=== PATIENT | female | born 1960 | race Caucasian/White ===

== ENCOUNTER 2019-10-04 09:37 | Outpatient (CLI) | payer OTHER, MEDICAID, SELFPAY ==
--- NOTE | 2019-10-04 09:46 | XRR_ITS ---
PROCEDURE INFORMATION: Exam: XR Abdomen, 1 View Exam date and time: 10/04/2019 10:02 AM Age: 59 years old Clinical indication: Pain; Other: Flank; Prior surgery; Surgery type: Gb / HX of colon cancer; Patient HX: Follow up bilateral kidney stones/ follow up; Additional info: Bilateral kidney stone TECHNIQUE: Imaging protocol: XR of the abdomen. Views: Frontal supine view of the abdomen. 1 View. COMPARISON: CR XR KUB [id number] 05/12/2014 9:05 AM FINDINGS: Gastrointestinal tract: Prominent stool. Organs: Bilateral urolithiasis, including 18 x 11 mm right renal calculus. CT can be performed for improved characterization if clinically indicated. Vasculature: Vascular calcification. Bones/joints: Degenerative change. Soft tissues: Injection granulomata. Calcification of the gluteal muscle attachment sites. XR/XR KUB [id number] IMPRESSION: Bilateral urolithiasis, including 18 x 11 mm right renal calculus. CT can be performed for improved characterization if clinically indicated.
== END 2019-10-04 09:38 | disposition home or self-care (01) ==
LOC: RAD 09:45
PROVIDERS: Family Provider Registered Nurse; PCP Registered Nurse; Visit Provider Urology
DX: N20.0 Calculus of kidney (principal)
CPT/HCPCS: 74018; 81001

== ENCOUNTER → 2019-10-25 12:04 | Outpatient (BNVA) | payer OTHER, MEDICAID, SELFPAY | PROVIDERS: Family Provider Registered Nurse; PCP Registered Nurse; Visit Provider Urology | DX: N39.0 Urinary tract infection, site not specified (principal); N20.0 Calculus of kidney | CPT/HCPCS: 81001; 87086 ==

== ENCOUNTER 2020-08-09 13:20 | Emergency (ER) | payer OTHER, MEDICAID, SELFPAY ==
[2020-08-09 13:21] VITALS: BP 167/80; PULSE 71; RESP 18; TEMP 37.1; O2SAT 92; BMI 41.5
--- NOTE | 2020-08-09 13:30 | XRR_ITS ---
PROCEDURE INFORMATION: Exam: XR Left Knee Exam date and time: 08/09/2020 1:37 PM Age: 60 years old Clinical indication: Injury or trauma; Fall; Blunt trauma; Knee; Left; Injury date: Today TECHNIQUE: Imaging protocol: XR Left knee. Views: 3 views. COMPARISON: CR Knee 3 views, LEFT* [id number] 05/11/2019 10:21 AM FINDINGS: Bones/joints: Negative for acute bony abnormality. Bone spurs are seen in the anterior aspect of the patella Soft tissues: There is a suprapatellar bursa effusion XR/XR knee LT 3V* [id number] IMPRESSION: 1. Negative for acute bony abnormality. 2. Bone spurs anterior calcaneus 3. Suprapatellar bursa effusion
--- NOTE | 2020-08-09 13:30 | CTR_ITS ---
PROCEDURE INFORMATION: Exam: CT Maxillofacial Without Contrast Exam date and time: 08/09/2020 1:44 PM Age: 60 years old Clinical indication: Injury or trauma; Fall; Blunt trauma (contusions or hematomas); Cheek bone; Left; Additional info: Fall, facial swelling TECHNIQUE: Imaging protocol: Computed tomography images of the face without contrast. Axial, coronal and sagittal reformatted images were created and reviewed. Radiation optimization: All CT scans at this facility use at least one of these dose optimization techniques: automated exposure control; mA and/or kV adjustment per patient size (includes targeted exams where dose is matched to clinical indication); or iterative reconstruction. COMPARISON: No relevant prior studies available. RADIATION DOSE METRICS: Total DLP (mGy-cm): 855.56 FINDINGS: Orbital cavity: Left scleral banding. Bones/joints: No acute osseous abnormality. Mild chronic appearing deformity of the left orbital floor. Paranasal sinuses: Normal. No air-fluid levels. Soft tissues: Left periorbital/prezygomatic/premaxillary soft tissue swelling and subcutaneous blood products. CT/CT facial bones wo con* [id number] IMPRESSION: 1. No acute facial bone fracture. 2. Additional findings, as above. Radiation Dose CTDIVOL = (mGy): DLP = 855.56 (mGy-cm)
--- NOTE | 2020-08-09 13:31 | CTR_ITS ---
PROCEDURE INFORMATION: Exam: CT Abdomen And Pelvis Without Contrast Exam date and time: 08/09/2020 1:44 PM Age: 60 years old Clinical indication: Injury or trauma; Fall; Blunt; Generalized; Injury date: Today; Additional info: Fall, left hip pain TECHNIQUE: Imaging protocol: Computed tomography of the abdomen and pelvis without contrast. Axial, coronal and sagittal reformatted images were created and reviewed. Radiation optimization: All CT scans at this facility use at least one of these dose optimization techniques: automated exposure control; mA and/or kV adjustment per patient size (includes targeted exams where dose is matched to clinical indication); or iterative reconstruction. COMPARISON: CT abdomen pelvis w con* [id number] 05/20/2019 3:17 PM RADIATION DOSE METRICS: Total DLP (mGy-cm): 2461.63 FINDINGS: Liver: Mild hepatomegaly. Mild, diffuse hepatic steatosis. Gallbladder and bile ducts: Status post cholecystectomy. No biliary ductal dilatation. Pancreas: Unremarkable. Spleen: Unremarkable. Adrenal glands: Normal. No mass. Kidneys and ureters: Nonobstructing bilateral renal calculi. Mild bilateral perinephric stranding. No hydronephrosis. Stomach and bowel: Suture material in the sigmoid colon, consistent with prior resection. No bowel wall thickening. No obstruction. No pneumatosis. Appendix: Appendix not identified with certainty but no right lower quadrant inflammatory change to suggest acute appendicitis. Intraperitoneal space: No free fluid. No organized fluid collection. No free air. Vasculature: Unremarkable. No aneurysm. Lymph nodes: No pathologically enlarged lymph nodes. Urinary bladder: Gore catheter in the urinary bladder, which is decompressed. Reproductive: Unremarkable. Bones/joints: No acute osseous abnormality. Osteopenia. Degenerative changes. Soft tissues: Unremarkable. Other findings: Minimal dependent atelectatic change. CT/CT abdomen pelvis wo con [id number] IMPRESSION: 1. Limited noncontrast examination without CT evidence of acute intra-abdominal or pelvic traumatic injury. 2. Additional findings, as above. Radiation Dose CTDIVOL = (mGy): DLP = 2461.63 (mGy-cm)
--- NOTE | 2020-08-09 13:34 | W.ED.FALL ---
HPI - Fall General: Chief Complaint: Fall Stated Complaint: FALL Time Seen by Provider: 08/09/20 13:20 Source: patient and EMS Mode of arrival: EMS Limitations: no limitations History of Present Illness: MD complaint: fall Onset (ago): minute(s) (30) Fall from: from height (distance) (from her porch) Place fall occurred: home Loss of consciousness: None Prolonged down time: no Symptoms prior to fall: none Context: tripped/slipped (tripped over a leaf blower) Location of injury: face Location of injury - extremities: Left: knee Severity: severe Severity scale (1-10): 10 Quality: sharp Associated symptoms-after fall: Reports difficulty walking; Denies abdominal pain, chest pain, confusion, headache(s), hematuria, lightheadedness, neck pain, numbness, short of breath, vertigo or weakness Review of Systems General: Reports: 10 or more systems reviewed and unremarkable except in HPI and below Const: Denies: fever(s), chills or body aches Eyes: Denies: change in vision or blurry vision ENMT: Denies: throat pain, enlarged tonsils, odynophagia, hoarseness, mouth pain or swelling of lips/tongue Card: Denies: chest pain or lightheadedness Resp: Denies: dyspnea, productive cough or non-productive cough GI: Denies: abdominal pain : Denies: hematuria Musc: Denies: neck pain Skin/Breast: Denies: rash, pruritus or erythema Neuro: Reports: difficulty walking; Denies: headache(s), vertigo or confusion Endo: Denies: polyuria, polydipsia or tired all the time [facility] ED PFSH: Medical History Bilateral kidney stones Calcium urolithiasis Carpal tunnel syndrome of left wrist Incontinence Recurrent urinary tract infection Surgical History History of appendectomy History of cholecystectomy History of colon resection COLON CANCER History of tonsillectomy Hx of adenoidectomy Hx of detached retina repair S/P extracorporeal shock wave therapy LEFT URETERAL STENT PLACEMENT Family History Other CAD (coronary artery disease) Social History Smoking and tobacco status: current some day smoker Alcohol intake: never Adopted: No Caregiver/support person: No Lives independently: No Household members: spouse Marital status: Current occupational status: disabled History of recent travel: No Current gender identity: Female Physical Exam Const: COMMON NORMALS: no acute distress, average body habitus, patient oriented x3, no limitations, healthy appearing, alert and well nourished HENMT: COMMON NORMALS: normocephalic and moist oral mucous membranes HEAD & SCALP: normocephalic FACE & SINUS: abrasion (abrasion and swelling on the left side of her face over the zygomatic area) on the left and Facial tenderness on exam of face and sinuses on the left Eye: COMMON NORMALS: Equal, round and reactive pupils present, EOMs intact bilaterally, conjunctivae normal and no scleral icterus CONJUNCTIVA: Yes conjunctivae normal PUPIL: Yes Equal, round and reactive pupils present Neck/C-Spine: COMMON NORMALS: full ROM, supple, no meningeal signs, no JVD and No carotid bruits CERVICAL SPINE: Yes cervical ROM normal, No pain with cervical ROM and No Cervical spine tenderness Chest: COMMONS NORMALS: normal inspection of the chest and normal palpation of entire chest wall Resp: COMMON NORMALS: normal respiratory effort, No retractions, No use of accessory muscles, clear to auscultation bilaterally and percussion normal AUSCULTATION: clear to auscultation bilaterally PERCUSSION: percussion normal Cardio: COMMON NORMALS: no JVD, regular rate, regular rhythm, S1 normal heart sound present, S2 normal heart sound present, No gallops present (Cardio), No clicks present (Cardio), No murmurs present (Cardio), No rub (Cardio) and Peripheral pulses 2+ throughout RATE: regular rate RHYTHM: regular rhythm HEART SOUNDS: S1 normal heart sound present and S2 normal heart sound present PERIPHERAL PULSES: Peripheral pulses 2+ throughout GI: COMMON NORMALS: Normal to inspection, nondistended, normoactive bowel sounds present, Soft to palpation, non-tender, No hepatosplenomegaly present, no masses and no bruits PALPATION: Yes Soft to palpation and Yes No hepatosplenomegaly present Extremity: COMMON NORMALS: normal to inspection, full ROM, capillary refill normal, no calf tenderness and no pedal edema LEFT LOWER EXTREMITY: Yes hip joint Left hip: Yes palpation (tender to palpation) and Yes knee joint (3 cm superficial laceration on her left knee) Left knee: Yes palpation (generalized knee tenderness) Neuro: COMMON NORMALS: patient oriented x3 SENSORIUM/ORIENTATION: Yes alert MENINGEAL SIGNS: Yes no meningeal signs Skin: COMMON NORMALS: no rashes or lesions noted, no wounds, turgor normal, no jaundice, no petechiae and no mottling GENERAL SKIN EXAM: no rashes or lesions noted and turgor normal Course Reevaluation(s): Reevaluation #1: Discussed her lab and imaging findings with her. Discussed my conversation with the orthopedic surgeon with her. Advised that she should be nonweightbearing until she is evaluated by the orthopedic surgeon. We will discharge her home with oral pain medication. She voiced understanding and is in agreement with the plan. Time: 16:15 Consultations: Consultation #1: Discussed the patient with Dr. Cha, orthopedic surgeon. She advised I will place the patient in a knee immobilizer and she will see the patient in the office. Time: 16:10 Vital Signs: Vital signs: Vital Signs Temperature 97.9 F 08/09/20 17:23 Pulse Rate 76 08/09/20 17:23 Respiratory Rate 18 08/09/20 17:23 Blood Pressure 126/82 08/09/20 17:23 Pulse Oximetry 93 08/09/20 17:23 MDM - Fall MDM Narrative: Medical decision making narrative: This patient who presents to the ED after a fall. She sustained a left patella fracture and abrasions to her face and knee. She is placed in a knee immobilizer and discharged home to f/ with an orthopedic surgeon. Medical Records: Attestation: I reviewed the patient's medical records. Lab Data: Attestation: I reviewed the patient's lab results. Labs: Lab Results 08/09/20 08/09/20 Range/Units 13:54 13:54 WBC 12.9 H (4.0-10.0) 10^3/ uL RBC 4.68 (4.1-5.3) 10^6/u L Hgb 14.4 (11.5-15.3) g/dL Hct 44.9 (37.0-47.0) % MCV 95.9 (81-99) fL MCH 30.8 (28.0-34.0) pg MCHC 32.1 (30.0-36.0) g/dL RDW 13.7 (12.1-15.1) % Plt Count 261 (130-400) 10^3/c mm MPV 9.9 (7.4-10.4) fL Neut % (Auto) 70.6 % Lymph % (Auto) 22.5 % [place] % (Auto) 4.3 % Eos % (Auto) 1.6 % Baso % (Auto) 0.6 % Neut # (Auto) 9.12 H (1.8-7.7) 10^3/u L Lymph # (Auto) 2.9 (0.8-4.8) 10^3/u L [place] # (Auto) 0.6 (0.2-0.9) 10^3/u L Eos # (Auto) 0.2 (0.0-0.8) 10^3/u L Baso # (Auto) 0.1 (0.0-0.1) 10^3/u L Nucleated RBC % (a uto) 0 % Nucleated RBCs # 0.0 /100WBC Sodium 140 (136-145) mmol/L Potassium 4.2 (3.5-5.1) mmol/L Chloride 97 L (98-107) mmol/L Carbon Dioxide 31 H (22-29) mmol/L Anion Gap 16.2 (5-19) BUN 13 (8-23) mg/dL Creatinine 1.1 H (0.5-0.9) mg/dL GFR Calculation 50.5 L (90-130) mL/min Glucose 76 (65-115) mg/dL Calculated Osmolal ity 289 (285-295) mOsm/k g Calcium 9.2 (8.5-10.5) mg/dL Total Bilirubin 0.3 (0.15-1.2) mg/dL AST 19 (0-32) U/L ALT 21 (0-33) U/L Alkaline Phosphata se 128 H (35-105) IU/L Total Protein 7.1 (6.6-8.7) g/dL Albumin 4.0 (3.5-5.2) g/dL Globulin 3.1 (1.3-4.6) g/dL Imaging Data^: CT Abd/Pel: Radiologist's impression: [employer] [place] [address] CT Scan Report Signed Patient: Melissa Kinney #: [id number] : 9Acct#:[id number] Age/Sex: 60 / FADM Date: 08/09/20 Loc: ERRoom/Bed: Attending Dr: Ordering Provider/Ordering MD: Malia Sexton MD, [facility] Date of Service: 08/09/20 Procedure(s): CT abdomen pelvis con [id number] Accession Number(s): [id number] Report Number: [id number] PROCEDURE INFORMATION: Exam: CT Abdomen And Pelvis Without Contrast Exam date and time: 08/09/2020 1:44 PM Age: 60 years old Clinical indication: Injury or trauma; Fall; Blunt; Generalized; Injury date: Today; Additional info: Fall, left hip pain TECHNIQUE: Imaging protocol: Computed tomography of the abdomen and pelvis without contrast. Axial, coronal and sagittal reformatted images were created and reviewed. Radiation optimization: All CT scans at this facility use at least one of these dose optimization techniques: automated exposure control; mA and/or kV adjustment per patient size (includes targeted exams where dose is matched to clinical indication); or iterative reconstruction. COMPARISON: CT abdomen pelvis w con* [id number] 05/20/2019 3:17 PM RADIATION DOSE METRICS: Total DLP (mGy-cm): 2461.63 FINDINGS: Liver: Mild hepatomegaly. Mild, diffuse hepatic steatosis. Gallbladder and bile ducts: Status post cholecystectomy. No biliary ductal dilatation. Pancreas: Unremarkable. Spleen: Unremarkable. Adrenal glands: Normal. No mass. Kidneys and ureters: Nonobstructing bilateral renal calculi. Mild bilateral perinephric stranding. No hydronephrosis. Stomach and bowel: Suture material in the sigmoid colon, consistent with prior resection. No bowel wall thickening. No obstruction. No pneumatosis. Appendix: Appendix not identified with certainty but no right lower quadrant inflammatory change to suggest acute appendicitis. Intraperitoneal space: No free fluid. No organized fluid collection. No free air. Vasculature: Unremarkable. No aneurysm. Lymph nodes: No pathologically enlarged lymph nodes. Urinary bladder: Gore catheter in the urinary bladder, which is decompressed. Reproductive: Unremarkable. Bones/joints: No acute osseous abnormality. Osteopenia. Degenerative changes. Soft tissues: Unremarkable. Other findings: Minimal dependent atelectatic change. CT/CT abdomen pelvis wo con [id number] IMPRESSION: 1. Limited noncontrast examination without CT evidence of acute intra-abdominal or pelvic traumatic injury. 2. Additional findings, as above. Radiation Dose CTDIVOL = (mGy): DLP = 2461.63 (mGy-cm) Dictated By:Beny Moura MD Signed By:Beny Moura MDSigned Date/Time:08/09/201541 DD/ [address]: Radiologist's impression: [facility] [address] [address] Scan Report Signed Patient: Melissa Kinney #: [id number] : 9Acct#:[id number] Age/Sex: 60 / FADM Date: 08/09/20 Loc: ERRoom/Bed: Attending Dr: Ordering Provider/Ordering MD: Malia Sexton MD, [facility] [place] Date of Service: 08/09/20 Procedure(s): CT facial bones wo con* [id number] Accession Number(s): [id number] Report Number: [id number] PROCEDURE INFORMATION: Exam: CT Maxillofacial Without Contrast Exam date and time: 08/09/2020 1:44 PM Age: 60 years old Clinical indication: Injury or trauma; Fall; Blunt trauma (contusions or hematomas); Cheek bone; Left; Additional info: Fall, facial swelling TECHNIQUE: Imaging protocol: Computed tomography images of the face without contrast. Axial, coronal and sagittal reformatted images were created and reviewed. Radiation optimization: All CT scans at this facility use at least one of these dose optimization techniques: automated exposure control; mA and/or kV adjustment per patient size (includes targeted exams where dose is matched to clinical indication); or iterative reconstruction. COMPARISON: No relevant prior studies available. RADIATION DOSE METRICS: Total DLP (mGy-cm): 855.56 FINDINGS: Orbital cavity: Left scleral banding. Bones/joints: No acute osseous abnormality. Mild chronic appearing deformity of the left orbital floor. Paranasal sinuses: Normal. No air-fluid levels. Soft tissues: Left periorbital/prezygomatic/premaxillary soft tissue swelling and subcutaneous blood products. CT/CT facial bones wo con* [id number] IMPRESSION: 1. No acute facial bone fracture. 2. Additional findings, as above. Radiation Dose CTDIVOL = (mGy): DLP = 855.56 (mGy-cm) Dictated By:Beny Moura MD Signed By:Beny Moura MDSigned Date/Time:08/09/20 1538 DD/ 153 [place] [address] CT Scan Report Signed Patient: Melissa Kinney #: [id number] : 9Acct#:[id number] Age/Sex: 60 / FADM Date: 08/09/20 Loc: ERRoom/Bed: Attending Dr: Ordering Provider/Ordering MD: Malia Sexton MD, [facility] [place] Date of Service: 08/09/20 Procedure(s): CT knee LT wo con* [id number] Accession Number(s): [id number] Report Number: [id number] PROCEDURE INFORMATION: Exam: CT Left Lower Extremity Without Contrast, Knee Exam date and time: 08/09/2020 2:13 PM Age: 60 years old Clinical indication: Injury or trauma; Fall; Blunt trauma; Knee; Left; Additional info: Fall, patella fracture TECHNIQUE: Imaging protocol: CT of the Left lower extremity without contrast was performed. Exam focused on the knee. Axial, coronal and sagittal reformatted images were created and reviewed. Radiation optimization: All CT scans at this facility use at least one of these dose optimization techniques: automated exposure control; mA and/or kV adjustment per patient size (includes targeted exams where dose is matched to clinical indication); or iterative reconstruction. COMPARISON: CR XR knee LT 3V* [id number] 08/09/2020 1:43 PM RADIATION DOSE METRICS: Total DLP (mGy-cm): 924.97 FINDINGS: Bones/joints: Osteopenia. Comminuted, displaced, predominantly transverse fracture through the lower pole of the patella with diastasis of the fracture fragments by up to 2 cm. No dislocation. Moderate lipohemarthrosis. Soft tissues: Pronounced soft tissue swelling and blood products at the fracture site. CT/CT knee LT wo con* [id number] IMPRESSION: 1. Patella fracture, as described above. 2. Additional findings, as above. Radiation Dose CTDIVOL = (mGy): DLP = 924.97 (mGy-cm) Dictated By:Beny Moura MD Signed By:Beny Moura MDSigned Date/Time:08/09/20 1550 DD/ [address] [facility] [employer] [address] [address] Scan Report Signed Patient: Melissa Kinney #: [id number] : 9Acct#:[id number] Age/Sex: 60 / FADM Date: 08/09/20 Loc: ERRoom/Bed: Attending Dr: Ordering Provider/Ordering MD: Malia Sexton MD, [facility] [place] Date of Service: 08/09/20 Procedure(s): CT lumbar spine wo con* [id number] Accession Number(s): [id number] Report Number: [id number] PROCEDURE INFORMATION: Exam: CT Lumbar Spine Without Contrast Exam date and time: 08/09/2020 1:50 PM Age: 60 years old Clinical indication: Injury or trauma; Fall; Blunt trauma (contusions or hematomas); Injury date: Today; Additional info: Fall, back pain TECHNIQUE: Imaging protocol: Computed tomography images of the lumbar spine without contrast. Axial, coronal and sagittal reformatted images were created and reviewed. Radiation optimization: All CT scans at this facility use at least one of these dose optimization techniques: automated exposure control; mA and/or kV adjustment per patient size (includes targeted exams where dose is matched to clinical indication); or iterative reconstruction. COMPARISON: CR Lumbar Spine 2-3 views* [id number] 02/20/2014 2:58 PM RADIATION DOSE METRICS: Total DLP (mGy-cm): 2101.25 FINDINGS: Vertebrae: Osteopenia. Normal lumbar lordosis. Alignment anatomic. No CT evidence of acute fracture, dislocation or subluxation. Vertebral body heights maintained. Discs/Spinal canal/Neural foramina: Multilevel spondylosis, characterized by disc space narrowing, osteophytosis, shallow disc bulges and facet/ligamentous hypertrophy. Multilevel spinal canal and neural foraminal stenosis, most severe at L2-L3 and L3-L4 on the right and L4-L5 on the left. Soft tissues: Grossly unremarkable. CT/CT lumbar spine wo con* [id number] IMPRESSION: 1. No CT evidence of acute lumbar spine traumatic injury. 2. Additional findings, as above. Radiation Dose CTDIVOL = (mGy): DLP = 2101.25 (mGy-cm) Dictated By:Beny Moura MD Signed By:Beny Moura MDSigned Date/Time:08/09/201544 DD/ 43 Discharge Plan Discharge Patient Disposition: Home Clinical Impression: Closed fracture of left patella Qualifiers: Encounter type: initial encounter Fracture morphology: transverse Fracture alignment: displaced Qualified Code(s): S82.032A - Displaced transverse fracture of left patella, initial encounter for closed fracture Facial abrasion Qualifiers: Encounter type: initial encounter Qualified Code(s): S00.81XA - Abrasion of other part of head, initial encounter Fall Qualifiers: Encounter type: initial encounter Qualified Code(s): W19.XXXA - Unspecified fall, initial encounter Abrasion of knee, left Qualifiers: Encounter type: initial encounter Qualified Code(s): S80.212A - Abrasion, left knee, initial encounter Condition: Stable Prescriptions: [place] 5-325 mg tablet 1 tab PO Q8H PRN (Reason: pain) Qty: 30 RF: 0 Continued cyanocobalamin (vitamin B-12) 1,000 mcg capsule 1,000 mcg PO QDAY RF: 0 Januvia 25 mg tablet 25 mg PO QDAY RF: 0 isosorbide mononitrate 30 mg tablet extended release 24 hr 30 mg PO QAM RF: 0 calcium carbonate 500 mg calcium (1,250 mg) tablet,chewable 500 mg PO QDAY RF: 0 Humalog KwikPen Insulin 200 unit/mL (3 mL) insulin pen 20 unit SUBCUT QDAY RF: 0 albuterol sulfate 90 mcg/actuation HFA aerosol inhaler 2 puff INHALATION Q6H PRNRF: 0 montelukast 10 mg tablet 10 mg PO QDAY RF: 0 Spiriva with HandiHaler 18 mcg capsule, w/inhalation device 1 cap INHALATION QDAY RF: 0 Symbicort 160-4.5 mcg/actuation HFA aerosol inhaler 2 puff INHALATION BID RF: 0 hydrocodone-ibuprofen 7.5-200 mg tablet 1 tab PO Q6H PRNRF: 0 aripiprazole [Abilify] 10 mg tablet 10 mg PO QDAY RF: 0 Soliqua 100/33 100 unit-33 mcg/mL insulin pen SUBCUT RF: 0 pregabalin 225 mg capsule 225 mg PO QDAY RF: 0 clopidogrel 75 mg tablet 75 mg PO QDAY RF: 0 potassium chloride 10 mEq capsule, extended release 10 meq PO QDAY RF: 0 tizanidine 2 mg capsule 2 mg PO BID PRNRF: 0 colchicine 0.6 mg capsule 0.6 mg PO QDAY RF: 0 prochlorperazine maleate 10 mg tablet 10 mg PO BID PRNRF: 0 metoprolol tartrate 50 mg tablet 50 mg PO QDAY RF: 0 atorvastatin 80 mg tablet 80 mg PO QDAY RF: 0 ergocalciferol (vitamin D2) 50,000 unit capsule 50,000 unit PO QDAY RF: 0 furosemide 40 mg tablet 40 mg PO QAM RF: 0 cyclobenzaprine 10 mg tablet 10 mg PO TID RF: 0 lisinopril 20 mg tablet 20 mg PO QDAY RF: 0 trazodone 100 mg tablet 100 mg PO QDAY RF: 0 vilazodone 40 mg tablet 40 mg PO QDAY RF: 0 promethazine 25 mg tablet 25 mg PO Q6H PRNRF: 0 nitrofurantoin monohyd/m-cryst [Macrobid] 100 mg capsule 100 mg PO BID Qty: 60 RF: 2 Discharge Orders: Discharge Order (Routine); Ordered 08/09/20 Ordered By: Malia Sexton Referrals: Soni Cha MD [Physician] - 4-7 days Marleni Zimmer [Primary Care Provider] - 1-3 days Discharge Diet: Usual diet Discharge Activity: Limit activity as instructed and Use walker/crutches as instructed Patient Instructions: Patellar Fracture (ED), Abrasion (ED), Fall Prevention (ED), Knee Immobilizer (ED) Activity Restrictions/Additional Instructions: Return for any new or worsening symptoms. Do not bear any weight on your left lower extremity until you are cleared by the orthopedic surgeon. You will be contacted to schedule an appointment with the orthopedic surgeon. Take the pain medication as needed for pain. Walk with crutches or using a walker making sure you put no weight on your left leg. Coding Level of Care Code ED [employer] Fwd Exam Comprehensive
--- NOTE | 2020-08-09 13:48 | CTR_ITS ---
PROCEDURE INFORMATION: Exam: CT Lumbar Spine Without Contrast Exam date and time: 08/09/2020 1:50 PM Age: 60 years old Clinical indication: Injury or trauma; Fall; Blunt trauma (contusions or hematomas); Injury date: Today; Additional info: Fall, back pain TECHNIQUE: Imaging protocol: Computed tomography images of the lumbar spine without contrast. Axial, coronal and sagittal reformatted images were created and reviewed. Radiation optimization: All CT scans at this facility use at least one of these dose optimization techniques: automated exposure control; mA and/or kV adjustment per patient size (includes targeted exams where dose is matched to clinical indication); or iterative reconstruction. COMPARISON: CR Lumbar Spine 2-3 views* [id number] 02/20/2014 2:58 PM RADIATION DOSE METRICS: Total DLP (mGy-cm): 2101.25 FINDINGS: Vertebrae: Osteopenia. Normal lumbar lordosis. Alignment anatomic. No CT evidence of acute fracture, dislocation or subluxation. Vertebral body heights maintained. Discs/Spinal canal/Neural foramina: Multilevel spondylosis, characterized by disc space narrowing, osteophytosis, shallow disc bulges and facet/ligamentous hypertrophy. Multilevel spinal canal and neural foraminal stenosis, most severe at L2-L3 and L3-L4 on the right and L4-L5 on the left. Soft tissues: Grossly unremarkable. CT/CT lumbar spine wo con* [id number] IMPRESSION: 1. No CT evidence of acute lumbar spine traumatic injury. 2. Additional findings, as above. Radiation Dose CTDIVOL = (mGy): DLP = 2101.25 (mGy-cm)
--- NOTE | 2020-08-09 13:59 | CTR_ITS ---
PROCEDURE INFORMATION: Exam: CT Left Lower Extremity Without Contrast, Knee Exam date and time: 08/09/2020 2:13 PM Age: 60 years old Clinical indication: Injury or trauma; Fall; Blunt trauma; Knee; Left; Additional info: Fall, patella fracture TECHNIQUE: Imaging protocol: CT of the Left lower extremity without contrast was performed. Exam focused on the knee. Axial, coronal and sagittal reformatted images were created and reviewed. Radiation optimization: All CT scans at this facility use at least one of these dose optimization techniques: automated exposure control; mA and/or kV adjustment per patient size (includes targeted exams where dose is matched to clinical indication); or iterative reconstruction. COMPARISON: CR XR knee LT 3V* [id number] 08/09/2020 1:43 PM RADIATION DOSE METRICS: Total DLP (mGy-cm): 924.97 FINDINGS: Bones/joints: Osteopenia. Comminuted, displaced, predominantly transverse fracture through the lower pole of the patella with diastasis of the fracture fragments by up to 2 cm. No dislocation. Moderate lipohemarthrosis. Soft tissues: Pronounced soft tissue swelling and blood products at the fracture site. CT/CT knee LT wo con* [id number] IMPRESSION: 1. Patella fracture, as described above. 2. Additional findings, as above. Radiation Dose CTDIVOL = (mGy): DLP = 924.97 (mGy-cm)
[2020-08-09 14:00] LABS: Basophils # 0.1 10^3/uL (0.0-0.1); Basophils % 0.6 %; Eosinophils # 0.2 10^3/uL (0.0-0.8); Eosinophils % 1.6 %; Hematocrit 44.9 % (37.0-47.0); Hemoglobin 14.4 g/dL (11.5-15.3); Lymphocytes # 2.9 10^3/uL (0.8-4.8); Lymphocytes % 22.5 %; Mean Corpuscular HGB Conc 32.1 g/dL (30.0-36.0); Mean Corpuscular Hemoglobin 30.8 pg (28.0-34.0); Mean Corpuscular Volume 95.9 fL (81-99); Mean Platelet Volume 9.9 fL (7.4-10.4); Monocytes # 0.6 10^3/uL (0.2-0.9); Monocytes % 4.3 %; Neutrophils # 9.12 10^3/uL (1.8-7.7); Neutrophils % 70.6 %; Nucleated Red Blood Cells % 0 %; Platelet Count 261 10^3/cmm (130-400); Red Blood Count 4.68 10^6/uL (4.1-5.3); Red Cell Distribution Width 13.7 % (12.1-15.1); White Blood Count 12.9 10^3/uL (4.0-10.0)
[2020-08-09 14:02] VITALS: BP 176/72; PULSE 74; RESP 18; O2SAT 92
[2020-08-09] MEDS: ondansetron 2 mg/ML SDV 2 mL 4 MG IVP (14:03)
[2020-08-09] MEDS: fentaNYL 50 mcg/mL INJ 2mL IVP ×2 (14:03→16:55)
[2020-08-09 14:19] LABS: Alanine Aminotransferase 21 U/L (0-33); Alkaline Phosphatase 128 IU/L (35-105); Anion Gap 16.2 (5-19); Aspartate Amino Transferase 19 U/L (0-32); Blood Urea Nitrogen 13 mg/dL (8-23); Calcium 9.2 mg/dL (8.5-10.5); Carbon Dioxide 31 mmol/L (22-29); Chloride 97 mmol/L (98-107); Globulin 3.1 g/dL (1.3-4.6); Glomerular Filtration Rate 50.5 mL/min (90-130); Glucose 76 mg/dL (65-115); Osmolality Calculated 289 mOsm/kg (285-295); Potassium 4.2 mmol/L (3.5-5.1); Sodium 140 mmol/L (136-145); Total Bilirubin 0.3 mg/dL (0.15-1.2); Total Protein 7.1 g/dL (6.6-8.7)
[2020-08-09] MEDS: neomycin-poly-bacitracin oint 28 gm 1 APPLIC TOPICAL (15:12)
--- NOTE | 2020-08-09 15:12 | PC.NURSE ---
Used 4x4 gauze to clean left knee and left side of face. Used Peroxide and NS. Placed ISAÍAS over left knee, folded 4x4 secured with 10cm x 12cm Tegaderm. Laid on Ice pack beside left cheek , rested face on the ice pack for swelling.
[2020-08-09 16:02] VITALS: BP 129/63; PULSE 78; RESP 18; O2SAT 93
--- NOTE | 2020-08-09 17:22 | PC.NURSE ---
Pt did not want the Crutches.
[2020-08-09 17:23] VITALS: BP 126/82; PULSE 76; RESP 18; TEMP 36.6; O2SAT 93
--- NOTE | 2020-08-13 11:31 | DCPLANNER ---
chemistry manager had message to schedule a follow up appointment for patient with ortho. chemistry manager called the ortho clinic, spoke with Cecelia, gave clinic patients information. chemistry manager was told that patients information would be printed and reviewed. Clinic will call patient with appointment information,
--- NOTE | 2020-08-15 09:41 | DCPLANNER ---
Patient had a follow up appointment scheduled for 08.14.20 with ortho - patient did attend appointment.
== END 2020-08-09 17:29 | disposition home or self-care (01) ==
PROVIDERS: Emergency Provider Family Medicine; PCP Registered Nurse
DX: S00.81XA Abrasion of other part of head, initial encounter (principal); S82.032A Displaced transverse fracture of left patella, initial encounter for closed fracture; S80.212A Abrasion, left knee, initial encounter; Z79.02 Long term (current) use of antithrombotics/antiplatelets; Z79.4 Long term (current) use of insulin; F17.210 Nicotine dependence, cigarettes, uncomplicated; W18.09XA Striking against other object with subsequent fall, initial encounter
CPT/HCPCS: 12345; 70486; 72131; 73562; 73700; 74176; 80053; 85025; 96374; 96375; 96376; 99283; J2405; J3010

== ENCOUNTER 2020-08-14 15:31 | Outpatient (CLI) | payer OTHER, MEDICAID, SELFPAY | END 2020-08-14 15:32 | disposition home or self-care (01) | LOC: SPT 15:33 | PROVIDERS: PCP Registered Nurse; Visit Provider Orthopaedic Surgery | DX: Z46.89 Encounter for fitting and adjustment of other specified devices (principal); S82.002D Unspecified fracture of left patella, subsequent encounter for closed fracture with routine healing; X58.XXXD Exposure to other specified factors, subsequent encounter | CPT/HCPCS: 87635; 97760; L1832 ==

== ENCOUNTER 2020-08-15 09:38 | Day surgery (SDC) | payer OTHER, MEDICAID, SELFPAY ==
[2020-08-14 16:55] VITALS: BMI 41.5
[2020-08-15] VITALS (7 sets, daily range): BP systolic 109–141; BP diastolic 72–90; PULSE 57–69; RESP 12–18; TEMP 36.1–36.9; O2SAT 95–99
--- NOTE | 2020-08-15 | SCC_ITS ---
Procedure Done: ORIF left patella 40.1 seconds of fluoroscopic guidance, for a cumulative dose of 2.48 mGy, was provided to Dr. Garza by the radiology department. C-arm images of the LEFT knee were saved for the patient's permanent record. [facility]
--- NOTE | 2020-08-15 | XR_ITS ---
WS: [id number] Left knee, 2 C-arm fluoroscopy views, 08/15/2020 Clinical Data: ORIF left patella Comparison: Left knee, 08/09/2020. Findings: The fracture of the patella is been reduced with the aid of 2 orthopedic screws. XR/XR knee LT 1-2V [id number] Impression: Internal fixation of left patellar fracture.
[2020-08-15] MEDS: sodium chloride 0.9% 1,000 ML 30 ML IV (10:35)
[2020-08-15 10:36] LABS: Glucose Point of Care 85 mg/dL (70-110)
--- NOTE | 2020-08-15 10:45 | ANES.PREANE2 ---
Pre-Anesthetic Assessment Pre-Anesthetic Assessment: Height/Weight: Height 1.65 m Weight 113.398 kg Preop Diagnosis: left patella fracture Proposed Procedure: Operation Date: 08/15/20 12:10 Proposed Procedures p ORIF left Patella [id number] s82.009A(Left) - DO Elma Anderson anesthetic complications: none Was Beta Therese taken within 24 hours: Yes Last intake: Intake Last Liquid Date 08/14/20 Last Liquid Time 20:30 Last Solid Date 08/14/20 Last Solid Time 18:00 Last Intake: 20:30 Social: Social History: Tobacco and No alcohol Packs per day: 1ppd for 15 yrs Exam: Pre-Anes Outpt Exam: alert, oriented x 3, clear to auscultation bilaterally and regular rate & rhythm Airway: Submandibular: WNL Cervical ROM: WNL MP: 2 Dentition: False Pulmonary: Pulmonary: COPD, SANCHEZ, Sleep apnea and SOB Comments: o2 2.5l NC when ambulating and at night CV/HEM: CV/HEM: CAD and [place] (heart cath 15yrs ago with blockage yet collateral flow. No CP noted. ) : : None reported Hepatic: Hepatic: None reported GI: GI: None reported Metabolic: Metabolic: DM (avg 70-100) Musc/skel: Musc/skel: Lower Back Pain and OA/DJD Neuropsych: Neuropsych: Syncope (near) Anesthetic Plan: ASA status: 3 Anesthesia: General Risk of > 500 ml blood loss (7ml/kg in children): No Meds/Allergies Current Medications: Current Medications Generic Name Dose Route Start Last Admin Trade Name Freq PRN Reason Stop Dose Admin Sodium Chloride 1,000 mls @ 30 ml s/hr 08/15/20 08:45 08/15/20 10:35 Sodium Chloride 0.9% IV 08/16/20 08:44 30 mls/hr .Q24H BRIDGER Administration PFSH Anesthesia PFSH: Medical History Bilateral kidney stones Calcium urolithiasis Carpal tunnel syndrome of left wrist Incontinence Recurrent urinary tract infection Surgical History History of appendectomy History of cholecystectomy History of colon resection COLON CANCER History of tonsillectomy Hx of adenoidectomy Hx of detached retina repair S/P extracorporeal shock wave therapy LEFT URETERAL STENT PLACEMENT Family History Other CAD (coronary artery disease) Social History Smoking and tobacco status: current some day smoker Alcohol intake: never Adopted: No Caregiver/support person: No Lives independently: No Household members: spouse Marital status: Current occupational status: disabled History of recent travel: No Current gender identity: Female Data Anesthesia Other Labs: Laboratory Results - last 48 hr 08/15/20 10:34 POC Glucose 85 Cardiac Studies: No Data to Display
[2020-08-15] MEDS: enoxaparin 40 mg/0.4 mL Syringe SUBCUT (10:46)
--- NOTE | 2020-08-15 10:49 | ECG_ITS ---
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 Measurements Intervals [place] Rate: 67 P: -26 DE: 218 QRS: 33 QRSD: 85 T: 39 QT: 399 QTc: 421 Interpretive Statements SINUS RHYTHM WITH FIRST DEGREE AV BLOCK No previous ECG available for comparison Electronically Signed On 08-15-2020 18:40:11 BOAT MASTER by Hattie Iyer M.D. [email or web address]
--- NOTE | 2020-08-15 11:14 | W.PM.OPSUD ---
Surgery/Procedure H&P Update DATE OF PROCEDURE: August 15, 2020 DATE H&P PERFORMED: 08/14/20 H&P UPDATE INFORMATION: I have reviewed H&P completed within last 30 days, I have examined patient prior to procedure and No changes to prior documentation PREOP DIAGNOSIS: left patella fracture PLANNED PROCEDURE: Operation Date: 08/15/20 12:10 Proposed Procedures p ORIF left Patella [id number] s82.009A(Left) - Khang Garza DO
--- NOTE | 2020-08-15 11:43 | ANES.PREANE2 ---
Pre-Anesthetic Assessment Pre-Anesthetic Assessment: Height/Weight: Height 1.65 m Weight 113.398 kg Preop Diagnosis: left patella fracture Proposed Procedure: Operation Date: 08/15/20 12:10 Proposed Procedures p ORIF left Patella [id number] s82.009A(Left) - DO Elma Anderson anesthetic complications: none Was Beta Therese taken within 24 hours: Yes Last intake: Intake Last Liquid Date 08/14/20 Last Liquid Time 20:30 Last Solid Date 08/14/20 Last Solid Time 18:00 Last Intake: 20:30 Social: Social History: Tobacco and No alcohol Packs per day: 1ppd Pack years: 30+ Exam: Pre-Anes Outpt Exam: alert, oriented x 3, clear to auscultation bilaterally and regular rate & rhythm Airway: Submandibular: WNL Cervical ROM: WNL MP: 2 Dentition: False Pulmonary: Pulmonary: COPD (home O2 PRN at 2.5L. Mostly night and with activity), SANCHEZ, Sleep apnea (CPAP) and SOB (with activity) CV/HEM: CV/HEM: CAD, HTN, [place] (cath 15 years ago with blockage and collateral flow noted. No CP since) and PVD : Comments: Hx stones Hepatic: Hepatic: None reported GI: GI: None reported Metabolic: Metabolic: DM (avg BS 70-110) and Morbid obesity Musc/skel: Musc/skel: Lower Back Pain and OA/DJD Neuropsych: Neuropsych: None reported Anesthetic Plan: ASA status: 3 Anesthesia: General Risk of > 500 ml blood loss (7ml/kg in children): No Meds/Allergies Current Medications: Current Medications Generic Name Dose Route Start Last Admin Trade Name Freq PRN Reason Stop Dose Admin Sodium Chloride 1,000 mls @ 30 ml s/hr 08/15/20 08:45 08/15/20 10:35 Sodium Chloride 0.9% IV 08/16/20 08:44 30 mls/hr .Q24H BRIDGER Administration PFSH Anesthesia PFSH: Medical History Bilateral kidney stones Calcium urolithiasis Carpal tunnel syndrome of left wrist Incontinence Recurrent urinary tract infection Surgical History History of appendectomy History of cholecystectomy History of colon resection COLON CANCER History of tonsillectomy Hx of adenoidectomy Hx of detached retina repair S/P extracorporeal shock wave therapy LEFT URETERAL STENT PLACEMENT Family History Other CAD (coronary artery disease) Social History Smoking and tobacco status: current some day smoker Alcohol intake: never Adopted: No Caregiver/support person: No Lives independently: No Household members: spouse Marital status: Current occupational status: disabled History of recent travel: No Current gender identity: Female Data Anesthesia Other Labs: Laboratory Results - last 48 hr 08/15/20 10:34 POC Glucose 85 Cardiac Studies: No Data to Display
[2020-08-15] MEDS: midazolam 1 mg/mL INJ 5 ML 2 MG IV (11:58)
[2020-08-15] MEDS: clindamycin 900 MG/50 ML PREMIX 100 MG IV (12:17)
--- NOTE | 2020-08-15 13:38 | PM.OP ---
Operative Report Date of procedure: August 15, 2020 Pre-op Diagnosis: left patella fracture Post-op diagnosis: same Procedure Done: ORIF left patella Surgeon: Khang Garza Anesthesia: General Estimated blood loss (mL): 20 Condition: stable Disposition: PACU Procedure: Patient was brought up suite placed in supine position all areas impingement well-padded patient's prepped and draped normal sterile fashion skin this was made over the patella patella fracture is identified bone edges were scraped using a rongeur and curettes once this is completed then fracture was reduced to cannulate screws from Arthrex were placed from inferior pole to superior pole the fiber tape was then passed through the screws using a suture passer once the tape was passed through 1 screw then was brought back down and then passed to the other screw in a [id number] fashion. A cerclage FiberWire was then passed around the patella and weave through the patella and quad tendon wounds irrigated and closed with Vicryl and tate sterile dressings applied patient transferred to the PACU in stable condition.
[2020-08-15] MEDS: HYDROcodone-acetaminophen 5-325 mg Tablet 1 TAB PO (14:34)
--- NOTE | 2020-08-15 16:23 | ANE.PACU2 ---
Inpatient post-anesthesia follow up: Airway intact: Yes Vital signs: Temperature 97 F Pulse Rate 59 Respiratory Rate 18 Blood Pressure 141/72 Pulse Oximetry 97 Oxygen Delivery Me thod Room Air Oxygen Flow Rate 2 Fraction of Inspir ed Oxygen Hydration adequate: Yes Nausea and vomiting: No Pain level: 3 Mental status: Baseline
== END 2020-08-15 15:10 | disposition home or self-care (01) ==
PROVIDERS: PCP Registered Nurse; Visit Provider Orthopaedic Surgery
PROC: (CPT 27524; principal; 2020-08-15 10:50)
DX: S82.002A Unspecified fracture of left patella, initial encounter for closed fracture (principal); X58.XXXA Exposure to other specified factors, initial encounter; F17.210 Nicotine dependence, cigarettes, uncomplicated; J44.9 Chronic obstructive pulmonary disease, unspecified; Z99.81 Dependence on supplemental oxygen; I25.10 Atherosclerotic heart disease of native coronary artery without angina pectoris; I10 Essential (primary) hypertension; I25.2 Old myocardial infarction; E11.9 Type 2 diabetes mellitus without complications; E66.01 Morbid (severe) obesity due to excess calories; Z68.41 Body mass index [BMI] 40.0-44.9, adult; M19.90 Unspecified osteoarthritis, unspecified site
CPT/HCPCS: 27524; 12345; 36416; 73560; 76000; 82962; 93005; 96372; 96374; C1713; J1650; J2250; J2405; J2704; J3010; J3490; J7030

== ENCOUNTER → 2020-09-18 09:22 | Outpatient (BNVA) | payer OTHER, MEDICAID, SELFPAY | PROVIDERS: PCP Registered Nurse; Visit Provider Orthopaedic Surgery | DX: Z48.89 Encounter for other specified surgical aftercare (principal); S82.032A Displaced transverse fracture of left patella, initial encounter for closed fracture | CPT/HCPCS: 73562; 87635 ==

== ENCOUNTER 2020-09-20 10:11 | Day surgery (SDC) | payer OTHER, MEDICAID, SELFPAY ==
[2020-09-19 11:15] VITALS: BMI 41.5
--- NOTE | 2020-09-19 11:34 | SUR.PREOP ---
Upon Phone preop found out patient is taking clopidogrel and took it this morning 06/19/[address] Garza, he said it was ok and that he would use a tourniquet.
[2020-09-20] VITALS (9 sets, daily range): BP systolic 118–176; BP diastolic 68–103; PULSE 48–58; RESP 12–18; TEMP 36.1–36.5; O2SAT 94–98
[2020-09-20 10:47] LABS: Glucose Point of Care 107 mg/dL (70-110)
[2020-09-20] MEDS: sodium chloride 0.9% 1,000 ML 30 ML IV (10:50)
--- NOTE | 2020-09-20 11:02 | ANES.PREANE2 ---
Pre-Anesthetic Assessment Pre-Anesthetic Assessment: Height/Weight: Height 1.65 m Weight 113.398 kg Temp Pulse Resp BP Pulse Ox 97.0 F L 57 L 18 118/75 96 09/20/20 10:35 09/20/20 10:35 09/20/20 10:35 09/20/20 10:35 09/20/20 10:35 Preop Diagnosis: patella fracture Proposed Procedure: Operation Date: 09/20/20 12:00 Proposed Procedures p Hardware Removal Knee(Left) - Khangemma Garza, DO s Tendon Repair Patella(Left) - Khang H Kayla, DO Familial anesthetic complications: None Was Beta Therese taken within 24 hours: Yes Last intake: Intake Last Liquid Date 09/19/20 Last Liquid Time 19:00 Last Solid Date 09/19/20 Last Solid Time 17:00 Social: Social History: Tobacco and No alcohol Exam: Pre-Anes Outpt Exam: alert, oriented x 3, clear to auscultation bilaterally and regular rate & rhythm Airway: Cervical ROM: WNL MP: 3 Dentition: False Pulmonary: Pulmonary: COPD ( 2.5 L NC prn) and Sleep apnea (cpap) CV/HEM: CV/HEM: CAD, HTN, [place] and PVD Metabolic: Metabolic: DM and Morbid obesity Anesthetic Plan: ASA status: 3 Anesthesia: General Risk of > 500 ml blood loss (7ml/kg in children): No Meds/Allergies Current Medications: Current Medications Generic Name Dose Route Start Last Admin Trade Name Freq PRN Reason Stop Dose Admin Sodium Chloride 1,000 mls @ 30 ml s/hr 09/20/20 10:30 09/20/20 10:50 Sodium Chloride 0.9% IV 09/21/20 10:29 30 mls/hr .Q24H BRIDGER Administration PFSH Anesthesia PFSH: Medical History Bilateral kidney stones Calcium urolithiasis Carpal tunnel syndrome of left wrist Incontinence Recurrent urinary tract infection Surgical History History of appendectomy History of cholecystectomy History of colon resection COLON CANCER History of tonsillectomy Hx of adenoidectomy Hx of detached retina repair S/P extracorporeal shock wave therapy LEFT URETERAL STENT PLACEMENT Family History Other CAD (coronary artery disease) Social History Smoking and tobacco status: current some day smoker Alcohol intake: never Adopted: No Caregiver/support person: No Lives independently: No Household members: spouse Marital status: Current occupational status: disabled History of recent travel: No Current gender identity: Female Data Anesthesia Other Labs: Laboratory Results - last 48 hr 09/20/20 10:43 POC Glucose 107 Cardiac Studies: No Data to Display
--- NOTE | 2020-09-20 11:51 | W.PM.OPSUD ---
Surgery/Procedure H&P Update DATE OF PROCEDURE: September 20, 2020 DATE H&P PERFORMED: 09/18/20 H&P UPDATE INFORMATION: I have reviewed H&P completed within last 30 days, I have examined patient prior to procedure and No changes to prior documentation PREOP DIAGNOSIS: patella fracture PLANNED PROCEDURE: Operation Date: 09/20/20 12:00 Proposed Procedures p Hardware Removal Knee(Left) - Khang Garza DO s Tendon Repair Patella(Left) - Khang Garza DO
[2020-09-20] MEDS: clindamycin 900 MG/50 ML PREMIX 100 MG IV (12:17)
--- NOTE | 2020-09-20 13:17 | PM.OP ---
Operative Report Date of procedure: September 20, 2020 Pre-op Diagnosis: patella fracture Procedure Done: 1. Removal of hardware left knee 2. Repair patella tendon to patella left Procedure: 1. Removal of hardware left knee 2. Repair patella tendon to patella left Patient is brought to the OR afternoon see anesthesia placed in supine position all areas impingement well-padded. Skin was made using previous incision. The wound was dissected down to the patella fracture screws were identified and removed FiberWire sutures removed was irrigated righted the FiberWire was brought through the inferior pole of the patella and weave through the patella tendon and then the this was done both on the medial and lateral aspect of the patella tendon so there were 2 FiberWire's were sutured through with 4 strands coming out 3 drill holes were made in the patella and then the FiberWire suture was brought out through the patella tendon. The sutures were then tied down to the superior pole the patella and wounds were then closed wit 0 Vicryl 2-0 Vicryl and nylon suture sterile dressing applied patient placed in knee immobilizer and transferred to the PACU in stable condition.
[2020-09-20] MEDS: fentaNYL 50 mcg/mL INJ 2mL IVP ×2 (13:35→13:40)
[2020-09-20] MEDS: HYDROcodone-acetaminophen 7.5-325 mg Tablet 1 TAB PO (14:17)
--- NOTE | 2020-09-20 19:33 | ANE.PACU2 ---
Inpatient post-anesthesia follow up: Airway intact: Yes Vital signs: Temperature 97.0 F Pulse Rate 48 Respiratory Rate 18 Blood Pressure 163/82 Pulse Oximetry 96 Oxygen Delivery Me thod Room Air Oxygen Flow Rate 8 Fraction of Inspir ed Oxygen Hydration adequate: Yes Nausea and vomiting: No Pain level: 2 Mental status: Baseline
== END 2020-09-20 15:05 | disposition home or self-care (01) ==
PROVIDERS: PCP Registered Nurse; Visit Provider Orthopaedic Surgery
PROC: (CPT 20680; principal; 2020-09-20 12:00)
PROC: (CPT 27380; 2020-09-20 12:00)
DX: S82.002D Unspecified fracture of left patella, subsequent encounter for closed fracture with routine healing (principal); X58.XXXD Exposure to other specified factors, subsequent encounter; J44.9 Chronic obstructive pulmonary disease, unspecified; Z99.81 Dependence on supplemental oxygen; G47.30 Sleep apnea, unspecified; I25.10 Atherosclerotic heart disease of native coronary artery without angina pectoris; I10 Essential (primary) hypertension; I25.2 Old myocardial infarction; E11.9 Type 2 diabetes mellitus without complications; E66.01 Morbid (severe) obesity due to excess calories; Z68.41 Body mass index [BMI] 40.0-44.9, adult; F17.210 Nicotine dependence, cigarettes, uncomplicated; Z79.4 Long term (current) use of insulin
CPT/HCPCS: 20680; 27380; 12345; 36416; 82962; J2704; J3010; J3490; J7030

== ENCOUNTER → 2020-10-04 14:55 | Outpatient (BNVA) | payer OTHER, MEDICAID, SELFPAY | PROVIDERS: PCP Registered Nurse; Visit Provider Orthopaedic Surgery | DX: S82.002A Unspecified fracture of left patella, initial encounter for closed fracture (principal) | CPT/HCPCS: 73560 ==

== ENCOUNTER 2020-10-23 16:38 | Inpatient (IN) | payer OTHER, MEDICAID, SELFPAY ==
[2020-10-23] VITALS (37 sets, daily range): BP systolic 105–205; BP diastolic 63–111; PULSE 58–72; RESP 16; TEMP 36.6; O2SAT 95–100
--- NOTE | 2020-10-23 16:40 | ECG_ITS ---
[facility] Test Date: 2020-10-23 Pat Name: Melissa Kinney Department: Room: Gender: Female Sales Account Representative: : 1960 Requested By: Yuriy Levine Order Number: [id number] Rambo MD: Rhett Mcqueen M.D. Measurements Intervals [place] Rate: 78 P: 29 [place]: 218 QRS: 34 QRSD: 90 T: 38 QT: 428 QTc: 490 Interpretive Statements SINUS RHYTHM WITH FIRST DEGREE AV BLOCK POSSIBLE LEFT ATRIAL ENLARGEMENT [-0.1mV P WAVE IN V1/V2] Compared to ECG 08/15/2020 11:12:55 No significant changes Electronically Signed On 10-23-2020 19:52:05 COURTROOM DEPUTY OR CALENDAR CLERK by Rhett Mcqueen M.D. [id number]
--- NOTE | 2020-10-23 16:40 | XR_ITS ---
WS: [id number] Portable AP supine chest, 10/23/2020 Clinical Data: cp Comparison: Portable chest, 02/20/2014. Findings: The endotracheal tube is at the level of brandon. The nasogastric tube appears to end in the stomach. Bilateral pulmonary opacities are present which could represent pulmonary edema or diffuse pneumonia. There is denser opacity in the right lower lobe. No nodules, masses or effusions are seen. The heart is not enlarged. Monitor leads are on the chest wall. XR/XR chest 1V portable [id number] Impression: 1. Endotracheal tube is at the level of brandon. 2. Nasogastric tube in good position. 3. Diffuse pulmonary opacities which could represent pulmonary edema or diffuse pneumonia. 4. Dense opacity in right lower lobe which could represent consolidation from p neumonia and/or atelectasis.
--- NOTE | 2020-10-23 16:42 | ED_ITS ---
HPI - Headache General: Chief Complaint: Cardiac Arrest/CPR Stated Complaint: HEAD PAIN, INTUBATED Time Seen by Provider: 10/23/20 16:39 Source: EMS Mode of arrival: EMS Limitations: altered mental status History of Present Illness: HPI Narrative: 60-year-old female that per EMS family states had a severe headache that started 1 hour ago. She then became unresponsive and family performed CPR for roughly 3 to 4 minutes. EMS states when they arrived she was minimally responsive but would respond to pain. Patient was intubated by them. She has had slight hypertensive. She has had some movement but does not follow any commands. No other history is available. Review of Systems General: Reports: ROS unobtainable due to mental status PFSH ED PFSH: Medical History Bilateral kidney stones Calcium urolithiasis Carpal tunnel syndrome of left wrist Incontinence Recurrent urinary tract infection Surgical History History of appendectomy History of cholecystectomy History of colon resection COLON CANCER History of tonsillectomy Hx of adenoidectomy Hx of detached retina repair S/P extracorporeal shock wave therapy LEFT URETERAL STENT PLACEMENT Family History Other CAD (coronary artery disease) Social History Smoking and tobacco status: current some day smoker Alcohol intake: never Adopted: No Caregiver/support person: No Lives independently: No Household members: spouse Marital status: Current occupational status: disabled History of recent travel: No Current gender identity: Female Physical Exam Const: COMMON NORMALS: negative for patient oriented x3 OTHER: intubated HENMT: COMMON NORMALS: normocephalic and atraumatic HEAD & SCALP: normocephalic and atraumatic Eye: COMMON NORMALS: Equal, round and reactive pupils present and EOMs intact bilaterally PUPIL: Yes Equal, round and reactive pupils present Neck/C-Spine: COMMON NORMALS: full ROM and supple Chest: COMMONS NORMALS: normal inspection of the chest and normal palpation of entire chest wall Resp: COMMON NORMALS: normal respiratory effort, No retractions and No use of accessory muscles AUSCULTATION: rales Cardio: COMMON NORMALS: regular rate, regular rhythm and No murmurs present (Cardio) RATE: regular rate RHYTHM: regular rhythm GI: COMMON NORMALS: Normal to inspection, nondistended, normoactive bowel sounds present, Soft to palpation, non-tender and no masses PALPATION: Yes Soft to palpation Extremity: COMMON NORMALS: normal to inspection and full ROM Neuro: COMMON NORMALS: negative for patient oriented x3 Psych: COMMON NORMALS: negative for mental status grossly normal and negative for Normal thought process present THOUGHT PROCESS: abnormal Skin: COMMON NORMALS: no rashes or lesions noted and no wounds GENERAL SKIN EXAM: no rashes or lesions noted Course Vital Signs: Vital signs: Vital Signs Pulse Rate 64 10/23/20 18:35 Respiratory Rate 16 10/23/20 18:35 Blood Pressure 111/79 10/23/20 18:35 Pulse Oximetry 96 10/23/20 18:35 MDM - Headache MDM Narrative: Medical decision making narrative: Patient presents here with respiratory failure x-ray does show pulmonary edema that was likely a flash pulmonary edema from her blood pressure. Patient's head CT shows no signs of subarachnoid hemorrhage or aneurysm. I do not believe she has had a stroke believes she became unresponsive from her pulmonary edema. Patient is improving here on the vent and spoke to hospitalist will admit to the ICU. We will treat for possible pneumonia as well but I still believe this is likely a flash pulmonary edema. Lab Data: Labs: Lab Results 10/23/20 10/23/20 10/23/20 Range/Units 16:57 17:05 17:05 WBC 17.7 H (4.0-10.0) 10^3/ uL RBC 4.79 (4.1-5.3) 10^6/u L Hgb 14.5 (11.5-15.3) g/dL Hct 44.9 (37.0-47.0) % MCV 93.7 (81-99) fL MCH 30.3 (28.0-34.0) pg MCHC 32.3 (30.0-36.0) g/dL RDW 12.8 (12.1-15.1) % Plt Count 272 (130-400) 10^3/c mm MPV 9.9 (7.4-10.4) fL Neut % (Auto) 69.4 % Lymph % (Auto) 23.5 % Esmeralda % (Auto) 3.1 % Eos % (Auto) 1.4 % Baso % (Auto) 0.3 % Neut # (Auto) 12.25 H (1.8-7.7) 10^3/u L Lymph # (Auto) 4.1 (0.8-4.8) 10^3/u L Esmeralda # (Auto) 0.6 (0.2-0.9) 10^3/u L Eos # (Auto) 0.3 (0.0-0.8) 10^3/u L Baso # (Auto) 0.1 (0.0-0.1) 10^3/u L Nucleated RBC % (a uto) 0 % Nucleated RBCs # 0.0 /100WBC PT 13.40 (12.1-14.9) SECO NDS INR 0.99 (0.8-1.2) Specimen Type Arterial Sample Site Radial, right ABG pH 7.26 L (7.35-7.45) ABG pCO2 69.1 H* (35-45) mmHg ABG pO2 92.5 (80.0-100.0) mmH g ABG HCO3 30.8 H (22-26) mmol/L ABG O2 Saturation 96.3 ABG Base Excess 1.3 (-2.0-2.0) mmol/ L Abhi Test Pos A-a O2 Gradient 70.8 H (5-10) mmHg Hematocrit 48.1 H (37-47) % Hgb O2 Saturation 94.6 L (95-100) % Carboxyhemoglobin 1.0 (0.4-20.1) %THgb Methemoglobin 0.8 (0.4-1.5) % Total Hemoglobin 15.7 (12-16) g/dL Sodium 142.0 (131-143) mmol/L Potassium 3.9 (3.5-5.0) mmol/L Glucose 253.0 H (70-115) mg/dL Ionized Calcium 1.2 (1.1-1.4) mmol/L O2 Delivery Device Vent FiO2 100.0 % Tidal Volume 0.45 PEEP 6.0 cmH20 Secondary History Teacher ID Cak Chloride (98-107) mmol/L Carbon Dioxide (22-29) mmol/L Anion Gap (5-19) BUN (8-23) mg/dL Creatinine (0.5-0.9) mg/dL GFR Calculation (90-130) mL/min Calculated Osmolal ity (285-295) mOsm/k g Calcium (8.5-10.5) mg/dL Total Bilirubin (0.15-1.2) mg/dL AST (0-32) U/L ALT (0-33) U/L Alkaline Phosphata se (35-105) IU/L Troponin T Baselin e (0-10) ng/L NT-Pro-B Natriuret Pep (0-125) pg/mL Total Protein (6.6-8.7) g/dL Albumin (3.5-5.2) g/dL Globulin (1.3-4.6) g/dL SARS-CoV-2 Ag (Rap id) (Negative) 10/23/20 10/23/20 10/23/20 Range/Units 17:05 17:05 18:00 WBC (4.0-10.0) 10^3/ uL RBC (4.1-5.3) 10^6/u L Hgb (11.5-15.3) g/dL Hct (37.0-47.0) % MCV (81-99) fL MCH (28.0-34.0) pg MCHC (30.0-36.0) g/dL RDW (12.1-15.1) % Plt Count (130-400) 10^3/c mm MPV (7.4-10.4) fL Neut % (Auto) % Lymph % (Auto) % Esmeralda % (Auto) % Eos % (Auto) % Baso % (Auto) % Neut # (Auto) (1.8-7.7) 10^3/u L Lymph # (Auto) (0.8-4.8) 10^3/u L Esmeralda # (Auto) (0.2-0.9) 10^3/u L Eos # (Auto) (0.0-0.8) 10^3/u L Baso # (Auto) (0.0-0.1) 10^3/u L Nucleated RBC % (a uto) % Nucleated RBCs # /100WBC PT (12.1-14.9) SECO NDS INR (0.8-1.2) Specimen Type Sample Site ABG pH (7.35-7.45) ABG pCO2 (35-45) mmHg ABG pO2 (80.0-100.0) mmH g ABG HCO3 (22-26) mmol/L ABG O2 Saturation ABG Base Excess (-2.0-2.0) mmol/ L Abhi Test A-a O2 Gradient (5-10) mmHg Hematocrit (37-47) % Hgb O2 Saturation (95-100) % Carboxyhemoglobin (0.4-20.1) %THgb Methemoglobin (0.4-1.5) % Total Hemoglobin (12-16) g/dL Sodium 140 (131-143) mmol/L Potassium 3.8 (3.5-5.0) mmol/L Glucose 240 H (70-115) mg/dL Ionized Calcium (1.1-1.4) mmol/L O2 Delivery Device FiO2 % Tidal Volume PEEP cmH20 Secondary History Teacher ID Chloride 99 (98-107) mmol/L Carbon Dioxide 29 (22-29) mmol/L Anion Gap 15.8 (5-19) BUN 12 (8-23) mg/dL Creatinine 0.8 (0.5-0.9) mg/dL GFR Calculation 72.9 L (90-130) mL/min Calculated Osmolal ity 298 H (285-295) mOsm/k g Calcium 8.6 (8.5-10.5) mg/dL Total Bilirubin 0.3 (0.15-1.2) mg/dL AST 16 (0-32) U/L ALT 20 (0-33) U/L Alkaline Phosphata se 166 H (35-105) IU/L Troponin T Baselin e 18 H (0-10) ng/L NT-Pro-B Natriuret Pep 186 H (0-125) pg/mL Total Protein 7.3 (6.6-8.7) g/dL Albumin 3.5 (3.5-5.2) g/dL Globulin 3.8 (1.3-4.6) g/dL SARS-CoV-2 Ag (Rap id) Negative (Negative) Imaging Data^: CT Head: Attestation: I personally reviewed and interpreted this imaging study as follows: Radiologist's impression: [employer] [address] [address] Scan Report Signed Patient: Melissa Kinney Unit #: [id number] : 1960 Age/Sex: 60 / F ADM Date: 10/23/20 Loc: ER Room/Bed: Attending Dr: Ordering Provider/Ordering MD: Yuriy Levine MD Date of Service: 10/23/20 Procedure(s): CT head wo con* [id number] Accession Number(s): [id number] Report Number: [id number] PROCEDURE INFORMATION: Exam: CT Head Without Contrast Exam date and time: 10/23/2020 4:48 PM Age: 60 years old Clinical indication: Coma or unconsciousness; Patient HX: PT intubated. Knee SX 5 weeks ago; Additional info: [employer] TECHNIQUE: Imaging protocol: Computed tomography of the head without contrast. Radiation optimization: All CT scans at this facility use at least one of these dose optimization techniques: automated exposure control; mA and/or kV adjustment per patient size (includes targeted exams where dose is matched to clinical indication); or iterative reconstruction. COMPARISON: CT head wo con* [id number] 03/25/2014 1:18 AM RADIATION DOSE METRICS: Total DLP (mGy-cm): 800.01 FINDINGS: Brain: No acute intracranial hemorrhage. Mild atrophy of brain parenchyma. Venegas matter and white matter differentiation is preserved. No intracranial mass. No midline shift of brain. No cerebral sulcal effacement identified. Small nonspecific areas of decreased attenuation in the posterior right frontal lobe subcortical white matter area are nonspecific. Cerebral ventricles: No ventriculomegaly. Bones/joints: Unremarkable. No acute fracture. Paranasal sinuses: Visualized sinuses are unremarkable. No fluid levels. Mastoid air cells: Visualized mastoid air cells are well aerated. Soft tissues: Unremarkable. Nasopharynx: Fluid within the posterior nasopharynx. Other findings: No cisternal effacement. CT/CT head wo con* [id number] IMPRESSION: 1. Negative for intracranial hemorrhage. 2. Mild nonspecific subcortical white matter changes primarily right frontal lobe. Other CT: Radiologist's impression: [address] [place] [address] CT Scan Report Signed Patient: Melissa Kinney Unit #: [id number] : 1960 [facility]#:OV [id number] Age/Sex: 60 / F ADM Date: 10/23/20 Loc: ER Room/Bed: Attending Dr: Ordering Provider/Ordering MD: Yuriy Levine MD Date of Service: 10/23/20 Procedure(s): CT angio malachi* [id number] Accession Number(s): [id number] Report Number: [id number] PROCEDURE INFORMATION: Exam: CT Angiography Head With Contrast, Arteries Exam date and time: 10/23/2020 4:48 PM Age: 60 years old Clinical indication: Headache and other: PT intubated; Additional info: [employer] TECHNIQUE: Imaging protocol: Computed tomography angiography of the head with intravenous contrast. 3D rendering (Not supervised by radiologist): MIP and/or 3D reconstructed images were created by the technologist. Radiation optimization: All CT scans at this facility use at least one of these dose optimization techniques: automated exposure control; mA and/or kV adjustment per patient size (includes targeted exams where dose is matched to clinical indication); or iterative reconstruction. Contrast material: VISI 320; Contrast volume: 95 ml; Contrast route: INTRAVENOUS (IV); COMPARISON: No relevant prior studies available. RADIATION DOSE METRICS: Total DLP (mGy-cm): 3038.77 FINDINGS: ANTERIOR CIRCULATION: Right internal carotid artery: Unremarkable. Intracranial segment is patent with no significant stenosis. No aneurysm. Right middle cerebral artery: Unremarkable. No occlusion or significant stenosis. No aneurysm. Right anterior cerebral artery: Unremarkable. No occlusion or significant stenosis. No aneurysm. Left internal carotid artery: Unremarkable. Intracranial segment is patent with no significant stenosis. No aneurysm. Left middle cerebral artery: Unremarkable. No occlusion or significant stenosis. No aneurysm. Left anterior cerebral artery: Unremarkable. No occlusion or significant stenosis. No aneurysm. POSTERIOR CIRCULATION: Right vertebral artery: Unremarkable. No occlusion or significant stenosis. No aneurysm. Left vertebral artery: Unremarkable. No occlusion or significant stenosis. No aneurysm. Basilar artery: Unremarkable. No occlusion or significant stenosis. No aneurysm. Right posterior cerebral artery: Unremarkable. No occlusion or significant stenosis. No aneurysm. Left posterior cerebral artery: Unremarkable. No occlusion or significant stenosis. No aneurysm. Brain: No definite mass, mass effect, or midline shift. Cerebral ventricles: No ventriculomegaly. Orbital cavity: Scleral buckle around the left globe. Bilateral lens replacements. Proptosis of the right globe is nonspecific. No orbital mass. Paranasal sinuses: Small fluid level in the left maxillary sinus. Nasopharynx: Fluid within nasopharynx. Bones/joints: Unremarkable. No acute fracture. Soft tissues: Unremarkable. IMPRESSION: No large arterial occlusion in the brain identified. No hemodynamically significant stenosis apparent. PROCEDURE INFORMATION: Exam: CT Angiography Neck With Contrast Exam date and time: 10/23/2020 4:48 PM Age: 60 years old Clinical indication: Headache and other: PT intubated; Additional info: [employer] TECHNIQUE: Imaging protocol: Computed tomography angiography of the neck with intravenous contrast. 3D rendering (Not supervised by radiologist): MIP and/or 3D reconstructed images were created by the technologist. Radiation optimization: All CT scans at this facility use at least one of these dose optimization techniques: automated exposure control; mA and/or kV adjustment per patient size (includes targeted exams where dose is matched to clinical indication); or iterative reconstruction. Contrast material: VISI 320; Contrast volume: 95 ml; Contrast route: INTRAVENOUS (IV); COMPARISON: No relevant prior studies available. RADIATION DOSE METRICS: Total DLP (mGy-cm): 3038.77 FINDINGS: Tubes, catheters and devices: Endotracheal tube with unremarkable positioning. Right common carotid artery: No stenosis. No dissection or occlusion. Right internal carotid artery: Small calcified atherosclerotic wall plaques of the right internal carotid artery origin with minimal stenosis significantly less than 50%. Right external carotid artery: No occlusion or stenosis of the origin. Right vertebral artery: No stenosis. No dissection or occlusion. Left common carotid artery: Eccentric mostly noncalcified atherosclerotic wall plaque in the left common carotid artery with mild stenosis less than 50%. Left internal carotid artery: Small calcified atherosclerotic wall plaques at the origin of the left internal carotid artery with mild stenosis less than 50%. Left external carotid artery: No occlusion or stenosis of the origin. Left vertebral artery: No stenosis. No dissection or occlusion. Thyroid: Low-attenuation nodule in the anterior left thyroid incompletely assessed, measuring about 16 mm greatest diameter. Bones/joints: Cervical spinal alignment is anatomic. No fractures. Moderate spondyloarthropathy changes. Bulky, bridging anterior osteophytic spurring. Soft tissues: Normal. No significant soft tissue swelling. Lungs: Scattered ground-glass opacities throughout both lungs with diffuse septal thickening. CT/CT angio headneck* [id number] IMPRESSION: 1. Unremarkable CT angiogram neck. No arterial occlusion. 2. Less than 50% stenosis bilateral internal and common carotid arteries. Atherosclerotic disease worse on left than right. 3. Nonspecific widespread interstitial and alveolar opacities of the lungs may represent pulmonary edema, ARDS, or sequela of atypical pneumonia. COMMENTS: Consistent with the [place] [employer]'s Incidental Findings Committee white paper (J Am Adilene Radiol 2015): In patients aged 35 years and older with an incidental thyroid nodule equal to or greater than 1.[address], MRI or extrathyroidal US, further evaluation with dedicated thyroid US is recommended for patients with normal life expectancy and without comorbidities. For smaller nodules without suspicious features, no further evaluation or follow up is recommended. EKG Data^: EKG 1: Attestation: I personally reviewed and interpreted this EKG as follows: EKG interpretation date: 10/23/20 EKG interpretation time: 17:12 Interpretation: Normal sinus rhythm heart rate [address] or T wave abnormalities QRS 90 QTC 462 Critical Care Time Critical Care Time: Critical Care Time: Yes Total Critical Care Time: 35 Attestation: This case had a high probability of a clinically significant, sudden, or life threatening deterioration of this patient's condition which required my full and direct attention, intervention and personal management. Discharge Plan Discharge Patient Disposition: Admitted As Inpatient Admit Provider: Donis Caban Clinical Impression: Hypertension Acute respiratory failure Qualifiers: Respiratory failure complication: unspecified whether with hypoxia or hypercapnia Qualified Code(s): J96.00 - Acute respiratory failure, unspecified whether with hypoxia or hypercapnia Pulmonary edema Qualifiers: Chronicity: acute Qualified Code(s): J81.0 - Acute pulmonary edema Headache Qualifiers: Headache type: unspecified Headache chronicity pattern: unspecified pattern Intractability: not intractable Qualified Code(s): R51.9 - Headache, unspecified Condition: Stable Coding Level of Care Code ED Power Reactor Operator for Alphonso Valdes
[2020-10-23] MEDS: iodixanol 320 mg/mL 100mL Btl IV (16:56)
[2020-10-23 17:08] LABS: ABG PH Result 7.26 (7.35-7.45); Alveolar-Arterial Oxygen Gradi 70.8 mmHg (5-10); Arterial Blood Gas Hematocrit 48.1 % (37-47); Base Excess ABG 1.3 mmol/L (-2.0-2.0); Blood Gas Allen Test Pos; Blood Gas Operator Identificat CAK; Blood Gas Sample Site Radial, right; Blood Gas Sample Type Arterial; Blood Gas Tidal Volume 0.45; HCO3 ABG 30.8 mmol/L (22-26); HGB O2 Sat 94.6 % (95-100); Ionized Calcium Level - ABG 1.2 mmol/L (1.1-1.4); Methemoglobin 0.8 % (0.4-1.5); Oxygen Device VENT; Oxygen Saturation ABG 96.3; PO2 ABG 92.5 mmHg (80.0-100.0); Potassium Level - ABG 3.9 mmol/L (3.5-5.0); Total Hemoglobin 15.7 g/dL (12-16)
[2020-10-23 17:09] LABS: ABG PCO2 69.1 mmHg (35-45)
[2020-10-23 17:19] LABS: Basophils # 0.1 10^3/uL (0.0-0.1); Basophils % 0.3 %; Eosinophils # 0.3 10^3/uL (0.0-0.8); Eosinophils % 1.4 %; Hematocrit 44.9 % (37.0-47.0); Hemoglobin 14.5 g/dL (11.5-15.3); Lymphocytes # 4.1 10^3/uL (0.8-4.8); Lymphocytes % 23.5 %; Mean Corpuscular HGB Conc 32.3 g/dL (30.0-36.0); Mean Corpuscular Hemoglobin 30.3 pg (28.0-34.0); Mean Corpuscular Volume 93.7 fL (81-99); Mean Platelet Volume 9.9 fL (7.4-10.4); Monocytes # 0.6 10^3/uL (0.2-0.9); Monocytes % 3.1 %; Neutrophils # 12.25 10^3/uL (1.8-7.7); Neutrophils % 69.4 %; Nucleated Red Blood Cells % 0 %; Platelet Count 272 10^3/cmm (130-400); Red Blood Count 4.79 10^6/uL (4.1-5.3); Red Cell Distribution Width 12.8 % (12.1-15.1); White Blood Count 17.7 10^3/uL (4.0-10.0)
[2020-10-23 17:32] LABS: INR 0.99 (0.8-1.2)
[2020-10-23] MEDS: propofol 1,000 MG/100 ML INJ 8.7 MG IV (17:37)
[2020-10-23 17:42] LABS: Troponin(5th) Baseline 18 ng/L (0-10)
[2020-10-23 17:48] LABS: Alanine Aminotransferase 20 U/L (0-33); Albumin Level 3.5 g/dL (3.5-5.2); Alkaline Phosphatase 166 IU/L (35-105); Aspartate Amino Transferase 16 U/L (0-32); Blood Urea Nitrogen 12 mg/dL (8-23); Calcium 8.6 mg/dL (8.5-10.5); Carbon Dioxide 29 mmol/L (22-29); Chloride 99 mmol/L (98-107); Globulin 3.8 g/dL (1.3-4.6); Glomerular Filtration Rate 72.9 mL/min (90-130); Glucose 240 mg/dL (65-115); NT Pro B Type Natriuretic Pept 186 pg/mL (0-125); Osmolality Calculated 298 mOsm/kg (285-295); Sodium 140 mmol/L (136-145); Total Bilirubin 0.3 mg/dL (0.15-1.2); Total Protein 7.3 g/dL (6.6-8.7)
[2020-10-23 17:49] LABS: Anion Gap 15.8 (5-19); Potassium 3.8 mmol/L (3.5-5.1)
[2020-10-23] MEDS: vancomycin 1,000 MG in sodium chloride 0.9% 250 ML 250 MG IV (18:06)
--- NOTE | 2020-10-23 18:20 | PC.PHAR ---
PT UNABLE TO CONFIRM DUE TO INTUBATION. I CALLED PT'S BUT COULDN'T REACH HIM. I AM GOING BY PT'S MEDICATION HISTORY AND PHARMACY LIST.
--- NOTE | 2020-10-23 18:40 | ECG_ITS ---
[facility] Test Date: 2020-10-23 Pat Name: Melissa Kinney Department: [facility]: [facility] Gender: Female Medical Accounts Receivable Specialist: : 1960 Requested By: Yuriy Levine Order Number: [id number] Rambo MD: Hattie Iyer M.D. Measurements Intervals Woodrow Rate: 61 P: 47 NV: 122 QRS: 10 QRSD: 87 T: 37 QT: 381 QTc: 384 Interpretive Statements SINUS RHYTHM Compared to ECG 10/23/2020 17:12:28 First degree AV block no longer present Electronically Signed On 10-24-2020 11:53:04 SLIP OPERATOR by Hattie Iyer M.D. [email or web address]
--- NOTE | 2020-10-23 19:01 | P.HP_ITS ---
Providers/Chief Complaint Admitting Physician: Donis Caban MD Primary Care Provider: Leah Millard DO Chief Complaint: HEAD PAIN, INTUBATED History of Present Illness Melissa Kinney is a 60 year old female With past medical history of COPD, current smoker, insulin-dependent type 2 diabetes mellitus, hypertension coffee hyperlipidemia, history of chronic RCA occlusion with collaterals, transient ischemic attacks, on Plavix, chronic pain on hydrocodone, history of colon ca ncer status post resection and chemotherapy, depression anxiety, who presents to [facility] for cardiac arrest. Patient is currently intubated, sedated on the ventilator in the emergency room. Mostly history of was obtained by patient's in person and daughter over the phone. Daughter tells me that she was with her mom this morning, yesterday afternoon, she was complaining of headaches, which is very unusual for her, nothing in particular associated with the headaches, just severe headaches, she took a hydrocodone yesterday which seem to take care of most of her pain. However this morning she woke up with severe headache, that would not go away, at roughly 3 PM, she took a hydrocodone, for the headache, she was sitting at the table with her daughter, when the daughter noticed that she started looking up at the wall, she called out to her mom, but she did not respond, when she did respond she looked at her, and said where is her daughter, she was acting confused, then went to staring at the wall, she was sitting up in the chair, her daughter did not notice any sl urring of her speech, any facial droop, patient had no complaints of weakness, then a few minutes went by, she was not responding appropriate, daughter noticed that she started shaking all over, and suddenly she turned blue in the face, at this point she called 911, and during this whole time she had slow breathing, which eventually slowly stopped, she stopped breathing, the cotton picking machine operator told her to perform CPR, for roughly 4 minutes, when EMS arrived, patient was agonal breathing, mainly responsive but respond to pain, they had a pulse, I am not sure if they performed an EKG at that point, but they found her to be hypertensive, patient was intubated by EMS staff, transferred to [facility]. On admission patient was found to be hypertensive blood pressure 190s over 100s, according to nursing staff she did withdraw from pain, did turn her head to commands, she was taken immediately to CT scan, CT of her head was negative for an acute stroke, or intracranial bleed, CT a of the head and neck did show 50% stenosis bilateral internal and common carotid arteries, chest x- ray showed pulmonary edema. The working thought at that point was patient developed hypertensive urgency leading to acute flash pulmonary edema leading to cardiac arrest. During my examination, patient EKG normal sinus rhythm, telemetry is normal sinus rhythm, she is normotensive, she is on the propofol drip, she does withdraw from pain, pupils equal round reactive to light, she does turn her head, she has a right knee binder in place for a patellar fracture which I removed, right calf is swollen compared to the left. Patient's family does tell me that since her patellar fracture she has been a bit more immobile, but ambulating in a walker, denies any shortness of breath, any calf pain any calf swelling, no history of DVT or PEs, no hemoptysis. No recent travel. No known exposure to COVID-19. She has not had any chest pain complaints recently. No cardiac events recently. No strokes recently. No significant hospitalizations recently. She did have a fall leading to the patella fracture a few months ago. Review of Systems General: Reports: ROS unobtainable due to medical condition Medications/Allergies Home Medications Medication Instructions Recorded Confirmed Last Taken Type albuterol sulfate 90 mcg/actuation 2 puff INHALATION Q6H PRN 10/04/19 10/23/20 09/20/20 History aerosol inhaler aripiprazole 10 mg tablet 10 mg PO QDAY 10/04/19 10/23/20 09/19/20 History atorvastatin 80 mg tablet 80 mg PO DAILY 10/04/19 10/23/20 09/19/20 History budesonide-formoterol HFA 160 2 puff INHALATION BID 10/04/19 10/23/20 09/19/20 History mcg-4.5 mcg/actuation aerosol inhaler calcium carbonate 500 mg calcium 500 mg PO DAILY 10/04/19 10/23/20 09/19/20 History (1,250 mg) chewable tablet clopidogrel 75 mg tablet 75 mg PO DAILY 10/04/19 10/23/20 09/18/20 08:00 History colchicine 0.6 mg capsule 0.6 mg PO DAILY 10/04/19 10/23/20 Unknown History cyanocobalamin (vitamin B-12) 1,000 mcg PO DAILY 10/04/19 10/23/20 09/19/20 History 1,000 mcg capsule ergocalciferol (vitamin D2) 1,250 50,000 unit PO DAILY 10/04/19 10/23/20 09/19/20 History mcg (50,000 unit) capsule furosemide 40 mg tablet 40 mg PO DAILY 10/04/19 10/23/20 09/19/20 History hydrocodone 7.5 mg-ibuprofen 200 1 tab PO Q6H PRN 10/04/19 10/23/20 09/19/20 History mg tablet insulin glargine 100 45 unit SUBCUT DAILY 10/04/19 10/23/20 09/19/20 History unit-lixisenatide 33 mcg/mL subcutaneous pen isosorbide mononitrate 30 mg 30 mg PO DAILY 10/04/19 10/23/20 09/20/20 History tablet,extended release 24 hr lisinopril 20 mg tablet 20 mg PO DAILY 10/04/19 10/23/20 09/20/20 History metoprolol tartrate 50 mg tablet 50 mg PO DAILY 10/04/19 10/23/20 09/20/20 History montelukast 10 mg tablet 10 mg PO DAILY 10/04/19 10/23/20 09/19/20 History potassium chloride 10 mEq 10 meq PO DAILY 10/04/19 10/23/20 09/19/20 History capsule,extended release pregabalin 225 mg capsule 225 mg PO DAILY 10/04/19 10/23/20 09/19/20 History prochlorperazine maleate 10 mg 10 mg PO BID PRN 10/04/19 10/23/20 08/13/20 History tablet promethazine 25 mg tablet 25 mg PO Q6H PRN 10/04/19 10/23/20 08/13/20 History tiotropium bromide 18 mcg capsule 1 cap INHALATION DAILY 10/04/19 10/23/20 09/20/20 History with inhalation device tizanidine 2 mg capsule 2 mg PO BID PRN 10/04/19 10/23/20 07/16/20 History trazodone 100 mg tablet 100 mg PO DAILY 01/10/23/20 09/19/20 History vilazodone 40 mg tablet 40 mg PO DAILY 10/04/19 10/23/20 09/19/20 History Long Hinge Knee Brace #1 ea 08/14/20 10/23/20 Unknown Rx WALKER #1 ea NS 10/04/20 10/23/20 Unknown Rx Allergies Allergy/AdvReac Type Severity Reaction Status Date / Time cephalexin [From Keflex] Allergy RASH,FEVER Verified 10/18/20 11:29 clonazepam [From Klonopin] Allergy SEIZURES Verified 10/18/20 11:29 doxycycline Allergy CONVULSIONS Verified 10/18/20 11:29 glyburide Allergy HIVES Verified 10/18/20 11:29 Penicillins Allergy CONVULSIONS Verified 10/18/20 11:29 Sulfa (Sulfonamide Allergy RASH Verified 10/18/20 11:29 Antibiotics) tramadol [From Ultram] Allergy HIVES Verified 10/18/20 11:29 PFSH Acute PFSH: Medical History Bilateral kidney stones Calcium urolithiasis Carpal tunnel syndrome of left wrist Incontinence Recurrent urinary tract infection Surgical History History of appendectomy History of cholecystectomy History of colon resection COLON CANCER History of tonsillectomy Hx of adenoidectomy Hx of detached retina repair S/P extracorporeal shock wave therapy LEFT URETERAL STENT PLACEMENT Family History Other CAD (coronary artery disease) Social History Smoking and tobacco status: current some day smoker Alcohol intake: never Adopted: No Caregiver/support person: No Lives independently: No Household members: spouse Marital status: Current occupational status: disabled History of recent travel: No Current gender identity: Female Vitals/I&O/Wt Last Vital Signs Pulse 64 10/23/20 18:35 Resp 16 10/23/20 18:35 BP 111/79 10/23/20 18:35 Pulse Ox 96 10/23/20 18:35 10/23/20 10/23/20 10/23/20 06:59 14:59 22:59 Intake Total 2.755 / 2.755 Balance 2.755 / 2.755 Physical Exam Narrative: EXAM NARRATIVE: Currently intubated, sedated on the ventilator, does withdraw from pain, pupils equal round reactive to light, does turn her head Const: COMMON NORMALS: no acute distress HENMT: COMMON NORMALS: normocephalic HEAD & SCALP: normocephalic Eye: COMMON NORMALS: Equal, round and reactive pupils present, EOMs intact bilaterally and no papilledema GENERAL EYE: appearance normal, both eyes and all related structures PUPIL: Yes Equal, round and reactive pupils present DIRECT OPHTHALMOSCOPY: Yes no papilledema Neck/C-Spine: COMMON NORMALS: full ROM, no lymphadenopathy, no JVD and Thyroid normal THYROID: Thyroid normal Lymph: LYMPHATIC: no lymphadenopathy noted Resp: COMMON NORMALS: normal respiratory effort, No retractions, No use of accessory muscles and clear to auscultation bilaterally AUSCULTATION: crackles and wheezes Cardio: COMMON NORMALS: no JVD, regular rate, regular rhythm, S1 normal heart sound present, S2 normal heart sound present, No gallops present (Cardio), No clicks present (Cardio) and No murmurs present (Cardio) RATE: regular rate RHYTHM: regular rhythm HEART SOUNDS: S1 normal heart sound present and S2 normal heart sound present GI: COMMON NORMALS: Normal to inspection, nondistended, normoactive bowel sounds present, Soft to palpation, non-tender and No hepatosplenomegaly present PALPATION: Yes Soft to palpation and Yes No hepatosplenomegaly present Extremity: COMMON NORMALS: normal to inspection, full ROM and no pedal edema Neuro: OTHER: Does not follow neurologic testing, does withdraw from pain, Babinski downgoing bilaterally, pupils equal round reactive to light Urinary Catheter Management^: Gore: Cath Placed During This Visit: yes Reason for Continuing Indwelling Catheter: Accurate Measurement of Urinary Output in Critically Ill Patients Urinary Catheter Date of Insertion: 10/23/20 Urinary Catheter Time of Insertion: 17:54 Data : 10/23/20 17:05 10/23/20 17:05 A&P Assessment and plan (1) Cardiac arrest: Etiology is unclear at this point -However she does have a significant risk of pulmonary emboli, as she is recently had a patellar fracture, has been more immobile, knees in immobilizer, right calf is swollen compared to the left -She does have significant cardiovascular history, hypertension, hyperlipidemia, smoker, history of RCA occlusion with collaterals, EKG normal sinus rhythm, first troponin 18 -Certainly a brainstem stroke could be a possibility, she was quite hypertensive on admission, does have pupillary reflexes, does withdraw from pain -CTA of the head and neck shows 50% stenosis bilateral internal and common carotid arteries -In addition acute flash pulmonary edema with hypertensive urgency is also playing a role, chest x-ray shows pulmonary edema, CT angiogram of the neck did show widespread interstitial and alveolar opacities of the lungs, she was acidotic pH 7.26, PCO2 in the 65 on admission she was hypertensive on admission, although BNP is not terribly elevated at 186 Plan: -Admit to intensive care unit -Continue intubation, mechanical ventilation, minimize PEEP, minimize FiO2 propofol and fentanyl for sedation -I have started Primaxin for aspiration pneumonia coverage -I have started her on a heparin drip to treat for pulmonary emboli until CT angiogram can be performed -CT angiogram, bilateral extremity ultrasound -Follow telemetry monitoring, follow EKGs, follow troponins -Currently on aspirin, Plavix, heparin as above -Cardiac echocardiogram ordered -Will receive Lasix 40 mg IV twice daily -Currently normotensive, however if her systolic blood pressures greater than 180 or diastolics greater than 100, nitro drip can be started -Neurochecks, aspiration precautions, monitor for seizures -Insulin sliding scale for type 2 diabetes -Repeat ABG -Heparin for DVT prophylaxis -Protonix for GI prophylaxis -Patient is a full code -Prognosis is guarded, status is critical Status: Acute (2) Acute respiratory failure: Likely secondary acute flash pulmonary edema Status: Acute Qualifiers: Respiratory failure complication: unspecified whether with hypoxia or hypercapnia Qualified Code(s): J96.00 - Acute respiratory failure, unspecified whether with hypoxia or hypercapnia (3) Pulmonary edema: Status: Acute Qualifiers: Chronicity: acute Qualified Code(s): J81.0 - Acute pulmonary edema (4) Headache: Status: Acute Qualifiers: Headache chronicity pattern: unspecified pattern Headache type: unspecified Intractability: not intractable Qualified Code(s): R51.9 - Headache, unspecified (5) Hypertension: Status: Acute (6) Patella fracture: Status: Acute (7) Recurrent urinary tract infection: Status: Acute (8) Insulin dependent type 2 diabetes mellitus: Status: Acute (9) Hyperlipidemia: Status: Acute (10) COPD (chronic obstructive pulmonary disease): Status: Acute (11) History of colon cancer: Status: Acute (12) Chronic pain: Status: Acute (13) Internal carotid artery stenosis: Status: Acute Attestations Medical Necessity Statement*: Patient requires hospitalization, inpatient, greater than 2 midnights, for cardiac arrest Coding Level of Care Code Acute Retail Wireless Sales Representative for [facility] Fwd Diagnoses Cardiac arrest I46.9 Acute respiratory failure J96.00 Respiratory failure complication: unspecified whether with hypoxia or hypercapnia Pulmonary edema J81.0 Chronicity: acute Headache R51.9 Headache chronicity pattern: unspecified pattern Headache type: unspecified Intractability: not intractable Hypertension I10 Patella fracture S82.009A Recurrent urinary tract infection N39.0 Insulin dependent type 2 diabetes mellitus E11.9; Z79.4 Hyperlipidemia E78.5 COPD (chronic obstructive pulmonary disease) J44.9 History of colon cancer Z85.038 Chronic pain G89.29 Internal carotid artery stenosis I65.29
[2020-10-23 19:07] LABS: SARS Covid-2 Antigen Negative (Negative)
[2020-10-23 19:46] LABS: Troponin 5 2HR 68.29 ng/L (0-10)
[2020-10-23 19:57] LABS: Troponin 5 2HR Delta 50.29 ABS# (0-10)
--- NOTE | 2020-10-23 20:48 | PC.NURSE ---
Called report to Dion BRISCOE in ICU at [phone]
[2020-10-23 22:24] LABS: Platelet Count 249 10^3/cmm (130-400)
[2020-10-23 22:25] LABS: ABG PCO2 44.2 mmHg (35-45); ABG PH Result 7.46 (7.35-7.45); Arterial Blood Gas Hematocrit 43.9 % (37-47); Base Excess ABG 6.7 mmol/L (-2.0-2.0); Blood Gas Allen Test Pos; Blood Gas Sample Site Radial, left; Blood Gas Sample Type Arterial; Blood Gas Tidal Volume 0.45; HCO3 ABG 31.5 mmol/L (22-26); Oxygen Device VENT; PO2 ABG 74.5 mmHg (80.0-100.0)
[2020-10-23 22:34] LABS: Glucose Point of Care 158 mg/dL (70-110)
[2020-10-23 22:36] LABS: Lactate (Lactic Acid level) 3.2 mmol/L (0.5-2.2)
--- NOTE | 2020-10-23 22:40 | ECG_ITS ---
[facility] Test Date: 2020-10-23 Pat Name: Melissa Kinney [place]: [place] [facility] [place]: Female Chronic Disease Epidemiologist: : 1960 Requested By: Yuriy Levine Order Number: [id number] Rambo MD: Hattie Iyer M.D. Measurements Intervals [place] Rate: 58 P: 46 WI: 212 QRS: 26 QRSD: 88 T: 55 QT: 449 QTc: 442 Interpretive Statements SINUS BRADYCARDIA WITH FIRST DEGREE AV BLOCK Compared to ECG 10/23/2020 20:07:22 First degree AV block now present Sinus rhythm no longer present Electronically Signed On 10-24-2020 11:52:52 ENVIRONMENTAL CHANGE ANALYST by Hattie Iyer M.D. [id number]
[2020-10-23] MEDS: FUROsemide 10 mg/mL SDV 4mL 40 MG IVP (22:59)
[2020-10-23 23:13] LABS: Troponin 5 6HR 94.69 ng/L (0-10)
[2020-10-23 23:15] LABS: Troponin 5 6HR Delta 76.69 ng/L (0-12)
[2020-10-23] MEDS: heparin drip 25,000 UNIT/500 ML PREMIX 32 UNIT IV (23:26)
[2020-10-24] VITALS (137 sets, daily range): BP systolic 83–190; BP diastolic 41–114; PULSE 47–86; RESP 14–15; TEMP 36.8–37.2; O2SAT 91–100
[2020-10-24] MEDS: ipratropium-albuterol 3 mL Neb INHALATION ×7 (00:05→23:41)
[2020-10-24] MEDS: heparin 5,000 unit/mL INJ 1 mL IV (00:48)
[2020-10-24] MEDS: propofol 1,000 MG/100 ML INJ 8.7 MG IV (01:03)
[2020-10-24 05:38] LABS: Basophils # 0.1 10^3/uL (0.0-0.1); Basophils % 0.3 %; Eosinophils # 0.1 10^3/uL (0.0-0.8); Eosinophils % 0.5 %; Hematocrit 37.6 % (37.0-47.0); Hemoglobin 12.4 g/dL (11.5-15.3); Lymphocytes # 2.7 10^3/uL (0.8-4.8); Lymphocytes % 16.5 %; Mean Corpuscular Hemoglobin 30.2 pg (28.0-34.0); Mean Corpuscular Volume 91.5 fL (81-99); Mean Platelet Volume 10.2 fL (7.4-10.4); Monocytes # 0.6 10^3/uL (0.2-0.9); Monocytes % 3.5 %; Neutrophils # 12.91 10^3/uL (1.8-7.7); Neutrophils % 78.7 %; Nucleated Red Blood Cells % 0 %; Platelet Count 227 10^3/cmm (130-400); Red Blood Count 4.11 10^6/uL (4.1-5.3); Red Cell Distribution Width 13.3 % (12.1-15.1); White Blood Count 16.4 10^3/uL (4.0-10.0)
[2020-10-24 05:58] LABS: Estmated Average Glucose 108; Hemoglobin A1C 5.4 % (4.0-6.0)
--- NOTE | 2020-10-24 06:00 | ECG_ITS ---
[facility] Test Date: 2020-10-24 Pat Name: Melissa Kinney Department: Room: [facility] Gender: Female Manager Of Administration: : 1960 Requested By: Donis Caban Order Number: [id number] Rambo MD: Hattie Iyer M.D. Measurements Intervals [place] Rate: 57 P: 39 NM: 204 QRS: 32 QRSD: 81 T: 47 QT: 464 QTc: 452 Interpretive Statements SINUS BRADYCARDIA with borderline first-degree AV block Compared to ECG 10/23/2020 20:12:57 First degree AV block no longer present Electronically Signed On 10-24-2020 11:51:28 POWERTRAIN ENGINEER by Hattie Iyer M.D. [id number]
--- NOTE | 2020-10-24 06:00 | USCV_ITS ---
Melissa Kinney Age: 60 Gender: F : 1960 Exam Date: 10/24/2020 06:34 Ordering Phys: Donis Caban MD Technologist: Randell Huizar Exam Location: [facility] [place]_ Indication: BILAT EDEMA HISTORY: Lower extremity swelling. PROCEDURES: The venous duplex Doppler examination of both lower extremities was performed in the standard fashion. The following venous structures were evaluated: common femoral vein, profunda vein, proximal portion of the greater saphenous vein, superficial femoral vein, and the popliteal vein. Bilaterally, the common femoral, superficial femoral, profunda femoral, popliteal, posterior tibial, greater saphenous veins, and the peroneal trunk were identified and interrogated in the standard fashion. These veins were found to be easily compressible with spontaneous blood flow. No evidence of insufficiency or thrombus noted. FINDINGS: Normal 2-D Doppler and augmentation and compressibility throughout the lower extremity venous structures. Additional imaging through the proximal calf veins also reveals no thrombus. Limited evaluation of the greater saphenous vein is patent with no thrombus.. CONCLUSIONS No evidence of right lower extremity DVT. No evidence of left lower extremity DVT. Bryan Linedr MD (Electronically Signed) Final Date: 24 October 2020 13:08 S
[2020-10-24 06:01] LABS: ABG PH Result 7.48 (7.35-7.45); Base Excess ABG 6.9 mmol/L (-2.0-2.0); Blood Gas Allen Test Pos; Blood Gas Sample Site Radial, left; Blood Gas Sample Type Arterial; Blood Gas Tidal Volume 0.45
[2020-10-24 06:02] LABS: ABG PCO2 41.7 mmHg (35-45); Arterial Blood Gas Hematocrit 41.2 % (37-47); HCO3 ABG 31.1 mmol/L (22-26); PO2 ABG 83.2 mmHg (80.0-100.0)
[2020-10-24 06:03] LABS: Partial Thromboplastin Time 143.7 SECONDS (23.9-36.7)
[2020-10-24 06:03] LABS: Oxygen Device VENT
[2020-10-24 06:07] LABS: Lactate (Lactic Acid level) 2.3 mmol/L (0.5-2.2)
[2020-10-24 06:14] LABS: Alanine Aminotransferase 15 U/L (0-33); Albumin Level 3.1 g/dL (3.5-5.2); Alkaline Phosphatase 129 IU/L (35-105); Anion Gap 13.9 (5-19); Aspartate Amino Transferase 12 U/L (0-32); Blood Urea Nitrogen 14 mg/dL (8-23); C Reactive Protein 36.8 mg/L (0.0-4.9); Calcium 8.5 mg/dL (8.5-10.5); Carbon Dioxide 29 mmol/L (22-29); Chloride 103 mmol/L (98-107); Globulin 3.1 g/dL (1.3-4.6); Glomerular Filtration Rate 63.7 mL/min (90-130); Glucose 187 mg/dL (65-115); Magnesium 1.7 mg/dL (1.7-2.3); Osmolality Calculated 299 mOsm/kg (285-295); Potassium 3.9 mmol/L (3.5-5.1); Sodium 142 mmol/L (136-145); Thyroid Stimulating Hormone 1.07 uIU/mL (0.27-4.20); Total Bilirubin 0.4 mg/dL (0.15-1.2); Total Protein 6.2 g/dL (6.6-8.7)
[2020-10-24 06:24] LABS: D Dimer 6.81 ug/mIFEU (0-0.59)
--- NOTE | 2020-10-24 06:28 | CT_ITS ---
WS: [id number] CTA OF THE CHEST WITH PULMONARY EMBOLISM PROTOCOL TECHNIQUE: High-resolution contrast enhanced CTA of the chest with coronal and sagittal reformatted i mages with pulmonary embolism protocol. MIP images are also reviewed. CLINICAL INFORMATION: r/o PE COMPARISON: CT chest May 05, 2019 DLP: 549.[address] scans at [facility] use at least one of these dose optimization techniques: automat ed exposure control; mA and/or kV adjustment per patient size (includes targeted exams where dose is matched to clinical indication); or iterative reconstruction. FINDINGS: Proximal main pulmonary arteries are normal. Segmental and subsegmental pulmonary arteries are normal . No evidence of pulmonary embolus. No filling defects. Normal caliber thoracic aorta. Small bilateral pleural effusions with compressive atelectasis in the lung bases. Left lower lobe opacity measuring measuring 9 mm unchanged since May 05, 2019. No medi astinal or hilar lymphadenopathy. No axillary lymphadenopathy. Endotracheal tube. Enteric tube. Adren al glands are normal. Hypertrophic changes thoracic spine. CT/CT angio chest PE protcl [id number] IMPRESSION: 1. No evidence of pulmonary embolus. 2. Tiny bilateral pleural effusions with compressive atelectasis in the lung b ases. 3. Stable 9 mm opacity left lower lobe. This appears to be partially calcified . 4. No mediastinal or hilar lymphadenopathy. 5. Endotracheal tube with tip above the brandon. Enteric tube with tip in the s tomach.
[2020-10-24 06:54] LABS: Chol HDL Ratio 4.18 mg/dL (0.0-4.40); Cholesterol 138 mg/dL (0-200); Creatine Phosphokinase 22 U/L (26-192); HDL Cholesterol 33 mg/dL (60-100); LDL Cholesterol Calculated 71 mg/dL (50-129); LDL HDL Ratio 2.15 RATIO (0.00-3.22); Triglycerides 172 mg/dL (0-150)
--- NOTE | 2020-10-24 07:00 | XR_ITS ---
WS: [id number] Portable AP semupright chest, 10/24/2020 Clinical Data: sob Comparison: Portable chest, 10/23/2020. Findings: 1. Clearing of bilateral pulmonary opacities which probably represent clearing of pulmonary edema. Th ere is still 8 dense opacity in the right lower lobe and probably one in the left lower lobe which co uld represent pneumonia and/or atelectasis. The endotracheal tube and nasogastric tube remain in good position. Monitor leads are on the chest wall. XR/XR chest 1V portable [id number] Impression: 1. Clearing of bilateral pulmonary opacities which probably represent improveme nt in pulmonary edema. 2. No change in right lower lobe opacity and development of left lower lobe opa city which could represent atelectasis and/or pneumonia. 3. No change in endotracheal tube and nasogastric tube.
--- NOTE | 2020-10-24 07:00 | USCV_ITS ---
Melissa Kinney Age: 60 Gender: F : 1960 Exam Date: 10/24/2020 06:19 Ordering Phys: Donis Caban MD Technologist: Randell Huizar Exam Location: [facility] [place] Indication: POST CODE BP: 114 / 56 HR: 53 Rhythm: Sinus Technical Quality: Fair MEASUREMENTS (Male / Female) Normal Values 2D ECHO LV Diastolic Diameter PLAX 3.6 cm 4.2 - 5.9 / 3.9 - 5.3 cm LV Systolic Diameter PLAX 2.4 cm IVS Diastolic Thickness 1.3 cm 0.6 - 1.0 / 0.6 - 0.9 cm IVS Systolic Thickness 1.5 cm LVPW Diastolic Thickness 1.0 cm 0.6 - 1.0 / 0.6 - 0.9 cm LVPW Systolic Thickness 1.2 cm LVOT Diameter 2.1 cm LV Ejection Fraction 2D Teich 60.4 % LV Ejection Fraction MOD 2C 72.2 % LV Ejection Fraction 2C AL 73.6 % LA Diameter 3.4 cm LA Width 4.2 cm LA Height 5.9 cm RA Width 4.0 cm RA Height 4.7 cm M-MODE LV Diastolic Diameter MM 5.3 cm 4.2 - 5.9 / 3.9 - 5.3 cm LV Systolic Diameter MM 3.5 cm LV Ejection Fraction MM Teich 62.9 % IVS Diastolic Thickness MM 0.9 cm 0.6 - 1.0 / 0.6 - 0.9 cm IVS Systolic Thickness MM 1.5 cm LVPW Diastolic Thickness MM 1.2 cm 0.6 - 1.0 / 0.6 - 0.9 cm LVPW Systolic Thickness MM 1.7 cm RV Diastolic Diameter MM 1.3 cm Aortic Annulus Diameter 2.8 cm LA Ao Ratio MM 1.2 MV E Point Septal Separation 1.1 cm DOPPLER AV Peak Velocity 202.0 cm/s LVOT Peak Velocity 118.0 cm/s AV Area Cont Eq vti 2.2 cm squared AV Area Cont Eq pk 1.9 cm squared MV Area PHT 5.0 cm squared Mitral E to A Ratio 0.9 MV E' Velocity 36.0 cm/s Mitral E to MV E' Ratio 13.3 Mitral E to LV E' Lateral Ratio 11.7 Mitral E to LV E' Septal Ratio 15.5 TR Peak Velocity 299.0 cm/s TR Peak Gradient 35.8 mmHg TV Peak E Velocity 74.0 cm/s Right Atrial Pressure 3.0 mmHg Pulmonary Artery Systolic Pressu 38.8 mmHg PV Peak Velocity 168.0 cm/s FINDINGS Left Ventricle Normal left ventricular size and systolic function, EF 70 %. No regional wall motion abnormalities. Grade I/IV diastolic dysfunction (abnormal relaxation filling pattern), normal to mildly elevated filling pressures. Right Ventricle The right ventricle is normal in size and function. Right Atrium The right atrium is normal in size. Left Atrium Borderline left atrial enlargement Mitral Valve Mild mitral annular calcification. Trace mitral valve regurgitation. Aortic Valve No gross abnormalities noted Tricuspid Valve No significant abnormalities noted Pulmonic Valve Structurally normal pulmonic valve without significant stenosis. There is no pulmonic regurgitation. Pericardium Normal pericardium without effusion. Aorta Normal ascending aorta dimension. CONCLUSIONS Normal left ventricular size and systolic function, EF 70 %. No regional wall motion abnormalities. Grade I/IV diastolic dysfunction (abnormal relaxation filling pattern), normal to mildly elevated filling pressures. Mild mitral annular calcification. Trace mitral valve regurgitation. Borderline left atrial enlargement. There is no pericardial effusion. There are no intracardiac masses. No previous study is available for comparison. Dr Rhett Mcqueen MD FACC (Electronically Signed) Final Date: 24 October 2020 19:05 S
[2020-10-24 07:22] LABS: Glucose Point of Care 175 mg/dL (70-110)
[2020-10-24] MEDS: FUROsemide 10 mg/mL SDV 4mL 40 MG IVP ×2 (08:50→22:28)
[2020-10-24 08:55] LABS: NT Pro B Type Natriuretic Pept 655 pg/mL (0-125); Procalcitonin 0.11 ng/mL (0-0.5)
--- NOTE | 2020-10-24 08:55 | PC.CHAP ---
Pastoral Care Encounter/Spiritual Assessment Type of Contact [] Declined sales expert home theater visit [] Patient/Family/Request visit [] Outpatient visit [] Follow-up visit [] Physician referral [] Code/Alert [x] Routine visit [] Staff referral [] Actively dying [] Patient sleeping [] Family support [] [] Out of room [] Palliative care [] [] Receiving care in room [] Pre-surgical visit [] Trauma [] Long length of stay [x] ICU visit [] Other: Relational/Emotional Strength [] Patient feels connected with others/family/visitors/staff [] Distress [] Loneliness/isolation [] Abandonment Spirituality of Patient [] Person of Wendy [] Attends Adventism of their Wendy [] Believes in Prayer [] Reads Bible or Amish materials [] There are Spiritual issues to be addressed Research Attorney Interventions [x] Prayer [] Active listening [] Non-anxious presence [] Spiritual/emotional support [] Crisis/trauma care [] Spiritual counseling [] Bereavement support [] Provided bereavement packet [] Provided Bible/devotional materials [] Provided toy/stuffed animal, coloring book to patient or family member [] Provided Communion [] Anointing/Tabor [] Salvation [x] Completed spiritual assessment [] Other: Impact on Illness or Injury [] Angry [] Fearful [] Anxious [] Often cries [] Exhaustion [] Unable to work [] Unable to attend religion [] Unable to walk/stand [] Unable to read [] Unable to drive [] Unable to eat/drink [] Unable to sleep [] Unable to be with family [] Patient intubated [] Other: Summary Time spent with patient
[2020-10-24] MEDS: aspirin 81 mg EC Tablet PO (09:28)
[2020-10-24] MEDS: clopidogrel 75 mg Tablet PO (09:29)
[2020-10-24] MEDS: pantoprazole DR 40 mg Tablet PO ×2 (09:29→17:42)
[2020-10-24] MEDS: atorvastatin 40 mg Tablet 80 MG PO (09:29)
[2020-10-24 11:12] LABS: Glucose Point of Care 152 mg/dL (70-110)
[2020-10-24] MEDS: acetaminophen 325 mg Tablet 650 MG PO (12:19)
[2020-10-24] MEDS: propofol 1,000 MG/100 ML INJ 4.4 MG IV (13:10)
[2020-10-24 13:21] LABS: Partial Thromboplastin Time 66.6 SECONDS (23.9-36.7)
[2020-10-24] MEDS: iohexol 350 mg/mL 100 mL Btl IV (14:08)
--- NOTE | 2020-10-24 14:22 | PC.NURSE ---
PTT order timed and drawn at 1200 10/24/20 not resulted until 1415. No change to Heparin gtt.
--- NOTE | 2020-10-24 14:53 | PM.CONSULT ---
Providers/Reason For Consult Consulting Physican/Specialty*: Cristiano Aceves/cardiology Reason for Consult*: Cardiac arrest/ troponin elevation Attending Physician: Donis Caban MD Primary Care Provider: Leah Millard DO History of Present Illness History of Present Illness 60 year old female With past medical history of COPD, current smoker, insulin-dependent type 2 diabetes mellitus, hypertension ,hyperlipidemia, history of chronic RCA occlusion with collaterals, transient ischemic attacks, on Plavix, chronic pain on hydrocodone, history of colon cancer status post resection and chemotherapy, depression anxiety, who presents to [facility] for cardiac arrest. Patient is currently intubated and sedated. She was having headaches when her daughter noted that she started looking up at the wall and did not respond to her and was confused. She started shaking. She had very slow breathing leading to cessation of breathing when her daughter started CPR. This continued for 4 minutes when EMS arrived patient still had agonal breathing. She did have pulse at that time. Patient was very hypertensive with blood pressure in 190s over 100s. CT head and neck showed 50% stenosis of bilateral internal and common carotid arteries and chest x-ray demonstrated pulmonary edema. Initial EKG showed normal sinus rhythm without ST elevations. Mild elevation of troponin. Initial troponin was obtained that trended up to 68 and 6-hour troponin was 94. She was started on heparin drip. Patient is sedated at this time and responds to painful stimuli. Review of Systems Narrative: Review of systems cannot be performed as patient is intubated and sedated. Meds/Allergies Home Medications and Allergies Home Medications Medication Instructions Recorded Confirmed Last Taken Type albuterol sulfate 90 mcg/actuation 2 puff INHALATION Q6H PRN 10/04/19 10/23/20 09/20/20 History aerosol inhaler aripiprazole 10 mg tablet 10 mg PO QDAY 10/04/19 10/23/20 09/19/20 History atorvastatin 80 mg tablet 80 mg PO DAILY 10/04/19 10/23/20 09/19/20 History budesonide-formoterol HFA 160 2 puff INHALATION BID 10/04/19 10/23/20 09/19/20 History mcg-4.5 mcg/actuation aerosol inhaler calcium carbonate 500 mg calcium 500 mg PO DAILY 10/04/19 10/23/20 09/19/20 History (1,250 mg) chewable tablet clopidogrel 75 mg tablet 75 mg PO DAILY 10/04/19 10/23/20 09/18/20 08:00 History colchicine 0.6 mg capsule 0.6 mg PO DAILY 10/04/19 10/23/20 Unknown History cyanocobalamin (vitamin B-12) 1,000 mcg PO DAILY 10/04/19 10/23/20 09/19/20 History 1,000 mcg capsule ergocalciferol (vitamin D2) 1,250 50,000 unit PO DAILY 10/04/19 10/23/20 09/19/20 History mcg (50,000 unit) capsule furosemide 40 mg tablet 40 mg PO DAILY 10/04/19 10/23/20 09/19/20 History hydrocodone 7.5 mg-ibuprofen 200 1 tab PO Q6H PRN 10/04/19 10/23/20 09/19/20 History mg tablet insulin glargine 100 45 unit SUBCUT DAILY 10/04/19 10/23/20 09/19/20 History unit-lixisenatide 33 mcg/mL subcutaneous pen isosorbide mononitrate 30 mg 30 mg PO DAILY 10/04/19 10/23/20 09/20/20 History tablet,extended release 24 hr lisinopril 20 mg tablet 20 mg PO DAILY 10/04/19 10/23/20 09/20/20 History metoprolol tartrate 50 mg tablet 50 mg PO DAILY 10/04/19 10/23/20 09/20/20 History montelukast 10 mg tablet 10 mg PO DAILY 10/04/19 10/23/20 09/19/20 History potassium chloride 10 mEq 10 meq PO DAILY 10/04/19 10/23/20 09/19/20 History capsule,extended release pregabalin 225 mg capsule 225 mg PO DAILY 10/04/19 10/23/20 09/19/20 History prochlorperazine maleate 10 mg 10 mg PO BID PRN 10/04/19 10/23/20 08/13/20 History tablet promethazine 25 mg tablet 25 mg PO Q6H PRN 10/04/19 10/23/20 08/13/20 History tiotropium bromide 18 mcg capsule 1 cap INHALATION DAILY 10/04/19 10/23/20 09/20/20 History with inhalation device tizanidine 2 mg capsule 2 mg PO BID PRN 10/04/19 10/23/20 07/16/20 History trazodone 100 mg tablet 100 mg PO DAILY 10/04/19 10/23/20 09/19/20 History vilazodone 40 mg tablet 40 mg PO DAILY 10/04/19 10/23/20 09/19/20 History Long Hinge Knee Brace #1 ea 08/14/20 10/23/20 Unknown Rx WALKER #1 ea NS 10/04/20 10/23/20 Unknown Rx Allergies Allergy/AdvReac Type Severity Reaction Status Date / Time cephalexin [From Keflex] Allergy RASH,FEVER Verified 10/18/20 11:29 clonazepam [From Klonopin] Allergy SEIZURES Verified 10/18/20 11:29 doxycycline Allergy CONVULSIONS Verified 10/18/20 11:29 glyburide Allergy HIVES Verified 10/18/20 11:29 Penicillins Allergy CONVULSIONS Verified 10/18/20 11:29 Sulfa (Sulfonamide Allergy RASH Verified 10/18/20 11:29 Antibiotics) tramadol [From Ultram] Allergy HIVES Verified 10/18/20 11:29 Current Medications Current Medications Generic Name Dose Route Start Last Admin Trade Name Freq PRN Reason Stop Dose Admin Acetaminophen 650 mg 10/23/20 21:53 10/24/20 12:19 Acetaminophen 325 Mg Tablet PO 650 mg Q6H PRN Administration Mild/Mod Pain Or Temp >/= 101 Albuterol/Ipratropium 3 ml 10/24/20 00:00 10/24/20 11:01 Ipratropium-Albuterol 3 Ml Neb INHALATION 3 ml Q4H.RESPIRATORY BRIDGER Administration Aspirin 81 mg 10/24/20 09:00 10/24/20 09:28 Aspirin 81 Mg Ec Tablet PO 81 mg DAILY BRIDGER Administration Atorvastatin Calcium 80 mg 10/24/20 09:00 10/24/20 09:29 Atorvastatin 40 Mg Tablet PO 80 mg DAILY BRIDGER Administration Clopidogrel Bisulfate 75 mg 10/24/20 09:00 10/24/20 09:29 Clopidogrel 75 Mg Tablet PO 75 mg DAILY BRIDGER Administration Furosemide 40 mg 10/23/20 21:53 10/24/20 08:50 Furosemide 10 Mg/Ml Sdv 4ml IVP 40 mg Q12H BRIDGER Administration Heparin Sodium (Beef Lung) 0 unit 10/23/20 21:53 10/24/20 00:48 Heparin 5,000 Unit/Ml Inj 1 Ml IV 5,800 unit PRN PRN Administration Heparin weight-base protocol Protocol Propofol 1,000 mg in 100 mls @ 0 mls/hr 10/23/20 17:30 10/24/20 13:11 Diprivan IV 22.99 mcg/kg/min .Q0M BRIDGER 20 mls/hr Titration Protocol Per Protocol Imipenem/Cilastatin Sodium 500 100 mls @ 200 mls/hr 10/23/20 22:30 10/24/20 11:23 mg/ Sodium Chloride IV Infused Q6H BRIDGER Infusion Protocol Heparin Sodium/Sodium Chloride 25,000 unit in 500 mls @ 0 mls/hr 10/23/20 21:53 10/24/20 06:14 Heparin Drip IV 11.51 unit/kg/hr .Q0M BRIDGER 26 mls/hr Titration Protocol Per Protocol Fentanyl 1,000 mcg/ Sodium 100 mls @ 0 mls/hr 10/23/20 21:53 10/24/20 13:21 Chloride IV 50 mcg/hr .Q0M BRIDGER 5 mls/hr Titration Protocol Per Protocol Insulin Aspart 0 unit 10/24/20 08:00 10/24/20 12:18 Insulin Aspart 100 Unit/1 Ml SUBCUT 2 unit TIDWM BRIDGER Administration Protocol Pantoprazole Sodium 40 mg 10/23/20 21:53 10/24/20 09:[address] 40 Mg Tablet PO 40 mg BID BRIDGER Administration PFSH Acute PFSH: Medical History Bilateral kidney stones Calcium urolithiasis Carpal tunnel syndrome of left wrist Incontinence Recurrent urinary tract infection Surgical History History of appendectomy History of cholecystectomy History of colon resection COLON CANCER History of tonsillectomy Hx of adenoidectomy Hx of detached retina repair S/P extracorporeal shock wave therapy LEFT URETERAL STENT PLACEMENT Family History Other CAD (coronary artery disease) Social History Smoking and tobacco status: current some day smoker Alcohol intake: never Adopted: No Caregiver/support person: No Lives independently: No Household members: spouse Marital status: Current occupational status: disabled History of recent travel: No Current gender identity: Female Vitals/I&O/Wt Last Vital Signs Temp 98.9 F 10/24/20 04:20 Pulse 66 10/24/20 13:00 Resp 14 10/24/20 13:02 BP 123/64 10/24/20 13:00 Pulse Ox 93 10/24/20 13:00 10/23/20 10/24/20 10/24/20 22:59 06:59 14:59 Intake Total 252.755 / 252.755 546.993 / 799.748 150.602 / 150.602 Output Total 1000 / 1000 750 / 750 Balance 252.755 / 252.755 -453.007 / -200.252 -599.398 / -599.398 Weight last 48 hrs Weight 249 lb 1.6 oz Physical Exam Narrative: EXAM NARRATIVE: Const COMMON NORMALS: no acute distress ORIENTATION/CONSCIOUSNESS: Yes awake; not oriented to person, not oriented to place and not oriented to time OTHER: Is intubated, on minimal sedation she follows commands, HENMT COMMON NORMALS: normocephalic HEAD & SCALP: normocephalic Neck/C-Spine COMMON NORMALS: no JVD Resp COMMON NORMALS: normal respiratory effort, No retractions, No use of accessory muscles and clear to auscultation bilaterally AUSCULTATION: clear to auscultation bilaterally Cardio COMMON NORMALS: no JVD, regular rate, regular rhythm, S1 normal heart sound present and S2 normal heart sound present RATE: regular rate RHYTHM: regular rhythm HEART SOUNDS: S1 normal heart sound present and S2 normal heart sound present GI COMMON NORMALS: Normal to inspection, nondistended, normoactive bowel sounds present, Soft to palpation, non-tender, No hepatosplenomegaly present, no masses and no bruits PALPATION: Yes Soft to palpation and Yes No hepatosplenomegaly present Extremity COMMON NORMALS: capillary refill normal, no clubbing, cyanosis or edema and no pedal edema Neuro SENSORIUM/ORIENTATION: No oriented to person, No oriented to place and No oriented to time Psych COMMON NORMALS: mental status grossly normal Urinary Catheter Management^: Gore: Cath Placed During This Visit: yes Reason for Continuing Indwelling Catheter: Accurate Measurement of Urinary Output in Critically Ill Patients Urinary Catheter Date of Insertion: 10/23/20 Urinary Catheter Time of Insertion: 17:54 Data Micro: Micro: Microbiology 10/23/20 17:05 Gram Stain - Final Sputum - Endotrac heal Tube Aspirate 10/23/20 19:12 Blood Culture - Pr eliminary Blood SPECIMEN [facility] LOBO 10/23/20 19:12 Blood Culture - Pr eliminary Blood SPECIMEN [facility] LOBO A&P Assessment and plan (1) Pulmonary edema: Status: Acute Qualifiers: Chronicity: acute Qualified Code(s): J81.0 - Acute pulmonary edema (2) Acute respiratory failure: Status: Acute Qualifiers: Respiratory failure complication: unspecified whether with hypoxia or hypercapnia Qualified Code(s): J96.00 - Acute respiratory failure, unspecified whether with hypoxia or hypercapnia (3) Cardiac arrest: Status: Acute (4) Insulin dependent type 2 diabetes mellitus: Status: Acute (5) Hyperlipidemia: Status: Acute (6) COPD (chronic obstructive pulmonary disease): Status: Acute (7) Hypertension: Status: Acute (8) NSTEMI (non-ST elevated myocardial infarction): Status: Acute Patient had out of hospital cardiac arrest. Given her recent surgery, will recommend performing CTA to rule out pulmonary embolism. Troponin elevation in setting of CPR. Her echocardiogram shows normal LV systolic function with no regional wall motion abnormalities. EKG does not show ST elevations or significant ischemic changes. Continue heparin drip. Once patient is extubated, can consider performing coronary angiography to rule out coronary artery disease. Continue aspirin and statin Thank you for involving us with care of this patient. We will continue to follow. Please call with questions. Coding Level of Care Code Acute Mechanical Planner for [facility] Fwd Diagnoses Pulmonary edema J81.0 Chronicity: acute Acute respiratory failure J96.00 Respiratory failure complication: unspecified whether with hypoxia or hypercapnia Cardiac arrest I46.9 Insulin dependent type 2 diabetes mellitus E11.9; Z79.4 Hyperlipidemia E78.5 COPD (chronic obstructive pulmonary disease) J44.9 Hypertension I10 NSTEMI (non-ST elevated myocardial infarction) I21.4
--- NOTE | 2020-10-24 15:45 | PM.PN ---
Subjective Subjective: Interval history: This morning patient was examined, she is on the ventilator, on minimal sedation, she does follow commands, she is able to squeeze my fingers, nod yes, pupils equal round reactive to light bilaterally, she withdraws from pain, she was normotensive overnight, afebrile, continues to have good urine output, Vitals/I&O/Wt Last Vital Signs Temp 98.9 F 10/24/20 04:20 Pulse 66 10/24/20 13:00 Resp 14 10/24/20 13:02 BP 123/64 10/24/20 13:00 Pulse Ox 93 10/24/20 13:00 10/24/20 10/24/20 10/24/20 06:59 14:59 22:59 Intake Total 546.993 / 799.748 184.935 / 184.935 9.75 / 194.685 Output Total 1000 / 1000 750 / 750 Balance -453.007 / -200.252 -565.065 / -565.065 9.75 / -555.315 Weight last 48 hrs Weight 112.99 kg Physical Exam Const: COMMON NORMALS: no acute distress ORIENTATION/CONSCIOUSNESS: Yes awake; not oriented to person, not oriented to place and not oriented to time OTHER: Is intubated, on minimal sedation she follows commands, HENMT: COMMON NORMALS: normocephalic HEAD & SCALP: normocephalic Neck/C-Spine: COMMON NORMALS: no JVD Resp: COMMON NORMALS: normal respiratory effort, No retractions, No use of accessory muscles and clear to auscultation bilaterally AUSCULTATION: clear to auscultation bilaterally Cardio: COMMON NORMALS: no JVD, regular rate, regular rhythm, S1 normal heart sound present and S2 normal heart sound present RATE: regular rate RHYTHM: regular rhythm HEART SOUNDS: S1 normal heart sound present and S2 normal heart sound present GI: COMMON NORMALS: Normal to inspection, nondistended, normoactive bowel sounds present, Soft to palpation, non-tender, No hepatosplenomegaly present, no masses and no bruits PALPATION: Yes Soft to palpation and Yes No hepatosplenomegaly present Extremity: COMMON NORMALS: capillary refill normal, no clubbing, cyanosis or edema and no pedal edema Neuro: SENSORIUM/ORIENTATION: No oriented to person, No oriented to place and No oriented to time Psych: COMMON NORMALS: mental status grossly normal Urinary Catheter Management^: Gore: Cath Placed During This Visit: yes Reason for Continuing Indwelling Catheter: Accurate Measurement of Urinary Output in Critically Ill Patients Urinary Catheter Date of Insertion: 10/23/20 Urinary Catheter Time of Insertion: 17:54 Data : 10/24/20 05:23 10/24/20 05:23 Micro: Microbiology 10/23/20 17:05 Gram Stain - Final Sputum - Endotracheal Tube Aspirate 10/23/20 19:12 Blood Culture - Preliminary Blood SPECIMEN COLLECTED 10/23/20 19:12 Blood Culture - Preliminary Blood SPECIMEN COLLECTED A&P Assessment and plan (1) Cardiac arrest: Etiology concerning for cardiac etiology - does have a significant risk of pulmonary emboli, as she is recently had a patellar fracture, has been more immobile, knees in immobilizer, right calf is swollen compared to the left, venous ultrasounds negative for DVT, CT angiogram of the chest negative for pulmonary emboli -She does have significant cardiovascular history, hypertension, hyperlipidemia, smoker, history of RCA occlusion with collaterals, EKG normal sinus rhythm, first troponin 18, 6-hour troponin 94, with a delta of 76, thus she has an NSTEMI -Certainly a brainstem stroke could be a possibility, she was quite hypertensive on admission, but currently following commands on minimal sedation, withdrawing from pain, has pupillary reflexes -CTA of the head and neck shows 50% stenosis bilateral internal and common carotid arteries -In addition acute flash pulmonary edema with hypertensive urgency is also playing a role, chest x-ray shows pulmonary edema, CT angiogram of the neck did show widespread interstitial and alveolar opacities of the lungs -Currently normotensive, afebrile, no significant episode tachycardia, no significant telemetry events -Following commands on minimal sedation, withdrawing from pain, squeezing my fingers Plan: -Admit to intensive care unit -Continue intubation, mechanical ventilation, minimize PEEP, minimize FiO2 -propofol and fentanyl for sedation -I have started Primaxin for aspiration pneumonia coverage -I have started her on a heparin drip for NSTEMI -Follow telemetry monitoring, follow EKGs, -Currently on aspirin, Plavix, heparin as above -Cardiac echocardiogram ordered, cardiology has been consulted -Will receive Lasix 40 mg IV twice daily -Currently normotensive, however if her systolic blood pressures greater than 180 or diastolics greater than 100, nitro drip can be started -Neurochecks, aspiration precautions, monitor for seizures -Insulin sliding scale for type 2 diabetes -Repeat ABG daily -Heparin for DVT prophylaxis -Protonix for GI prophylaxis -Patient is a full code -Prognosis is guarded, status is critical Status: Acute (2) Acute respiratory failure: Likely secondary acute flash pulmonary edema Status: Acute Qualifiers: Respiratory failure complication: unspecified whether with hypoxia or hypercapnia Qualified Code(s): J96.00 - Acute respiratory failure, unspecified whether with hypoxia or hypercapnia (3) Pulmonary edema: Status: Acute Qualifiers: Chronicity: acute Qualified Code(s): J81.0 - Acute pulmonary edema (4) Headache: Status: Acute Qualifiers: Headache chronicity pattern: unspecified pattern Headache type: unspecified Intractability: not intractable Qualified Code(s): R51.9 - Headache, unspecified (5) Hypertension: Status: Acute (6) Patella fracture: Status: Acute (7) Recurrent urinary tract infection: Status: Acute (8) Insulin dependent type 2 diabetes mellitus: Status: Acute (9) Hyperlipidemia: Status: Acute (10) COPD (chronic obstructive pulmonary disease): Status: Acute (11) History of colon cancer: Status: Acute (12) Chronic pain: Status: Acute (13) Internal carotid artery stenosis: Status: Acute (14) NSTEMI (non-ST elevated myocardial infarction): Status: Acute Attestations Medical Necessity Statement*: Patient requires hospitalization, ICU, for cardiac arrest, likely secondary to cardiac etiology, critical care time spent over 50 minutes Coding Level of Care Code Acute Supplier Specialist for [facility] Fwd Diagnoses Cardiac arrest I46.9 Acute respiratory failure J96.00 Respiratory failure complication: unspecified whether with hypoxia or hypercapnia Pulmonary edema J81.0 Chronicity: acute Headache R51.9 Headache chronicity pattern: unspecified pattern Headache type: unspecified Intractability: not intractable Hypertension I10 Patella fracture S82.009A Recurrent urinary tract infection N39.0 Insulin dependent type 2 diabetes mellitus E11.9; Z79.4 Hyperlipidemia E78.5 COPD (chronic obstructive pulmonary disease) J44.9 History of colon cancer Z85.038 Chronic pain G89.29 Internal carotid artery stenosis I65.29 NSTEMI (non-ST elevated myocardial infarction) I21.4
--- NOTE | 2020-10-24 15:58 | PC.NURSE ---
Denture removed Patient's upper dentures removed during oral care. Patient only had uppers in, not lowers. Dentures cleansed, placed on bedside table and labeled.
[2020-10-24] MEDS: heparin drip 25,000 UNIT/500 ML PREMIX 26 UNIT IV (16:55)
[2020-10-24 17:03] LABS: Glucose Point of Care 122 mg/dL (70-110)
[2020-10-24 18:20] LABS: INR 1.09 (0.8-1.2)
[2020-10-24] MEDS: propofol 1,000 MG/100 ML INJ 15 MG IV (18:40)
[2020-10-25] VITALS (105 sets, daily range): BP systolic 81–233; BP diastolic 42–145; PULSE 62–130; RESP 10–20; TEMP 37.3; O2SAT 92–100
[2020-10-25 01:07] LABS: Partial Thromboplastin Time 63.7 SECONDS (23.9-36.7)
[2020-10-25] MEDS: propofol 1,000 MG/100 ML INJ 15 MG IV (01:34)
[2020-10-25 04:10] LABS: Basophils # 0.1 10^3/uL (0.0-0.1); Basophils % 0.3 %; Eosinophils # 0.2 10^3/uL (0.0-0.8); Eosinophils % 1.6 %; Hematocrit 35.3 % (37.0-47.0); Hemoglobin 11.5 g/dL (11.5-15.3); Lymphocytes # 2.6 10^3/uL (0.8-4.8); Lymphocytes % 17.5 %; Mean Corpuscular HGB Conc 32.6 g/dL (30.0-36.0); Mean Corpuscular Hemoglobin 30.3 pg (28.0-34.0); Mean Corpuscular Volume 93.1 fL (81-99); Mean Platelet Volume 10.2 fL (7.4-10.4); Monocytes # 0.7 10^3/uL (0.2-0.9); Monocytes % 4.6 %; Neutrophils % 75.7 %; Nucleated Red Blood Cells % 0 %; Platelet Count 216 10^3/cmm (130-400); Red Blood Count 3.79 10^6/uL (4.1-5.3); Red Cell Distribution Width 13.7 % (12.1-15.1); White Blood Count 14.7 10^3/uL (4.0-10.0)
[2020-10-25] MEDS: ipratropium-albuterol 3 mL Neb INHALATION ×5 (04:13→20:25)
[2020-10-25 04:17] LABS: INR 1.12 (0.8-1.2)
[2020-10-25 04:20] LABS: D Dimer 2.12 ug/mIFEU (0-0.59)
[2020-10-25 04:29] LABS: Lactate (Lactic Acid level) 2.3 mmol/L (0.5-2.2)
[2020-10-25 04:31] LABS: Alanine Aminotransferase 13 U/L (0-33); Alkaline Phosphatase 141 IU/L (35-105); Anion Gap 13.4 (5-19); Aspartate Amino Transferase 11 U/L (0-32); Blood Urea Nitrogen 13 mg/dL (8-23); C Reactive Protein 123.3 mg/L (0.0-4.9); Calcium 8.3 mg/dL (8.5-10.5); Carbon Dioxide 31 mmol/L (22-29); Chloride 100 mmol/L (98-107); Globulin 3.3 g/dL (1.3-4.6); Glomerular Filtration Rate 72.9 mL/min (90-130); Glucose 150 mg/dL (65-115); Magnesium 1.7 mg/dL (1.7-2.3); Osmolality Calculated 295 mOsm/kg (285-295); Phosphorus 4.3 mg/dL (2.5-4.5); Potassium 3.4 mmol/L (3.5-5.1); Sodium 141 mmol/L (136-145); Total Bilirubin 0.7 mg/dL (0.15-1.2); Total Protein 6.3 g/dL (6.6-8.7)
[2020-10-25 04:38] LABS: NT Pro B Type Natriuretic Pept 325 pg/mL (0-125); Procalcitonin 0.08 ng/mL (0-0.5)
[2020-10-25 04:48] LABS: Creatine Phosphokinase 15 U/L (26-192)
[2020-10-25 05:33] LABS: ABG PCO2 46.9 mmHg (35-45); ABG PH Result 7.44 (7.35-7.45); Arterial Blood Gas Hematocrit 51.4 % (37-47); Blood Gas Sample Type Arterial; HCO3 ABG 31.5 mmol/L (22-26); Oxygen Device VENT; PO2 ABG 76.2 mmHg (80.0-100.0)
--- NOTE | 2020-10-25 06:00 | ECG_ITS ---
[facility] Test Date: 2020-10-25 Pat Name: Melissa Kinney Department: Room: [facility] Gender: Female Mixer Operator Tablets: : 1960 Requested By: Donis Caban Order Number: [id number] Rambo MD: Cristaino Aceves M.D. Measurements Intervals [place] Rate: 91 P: 64 NM: 177 QRS: 51 QRSD: 81 T: 54 QT: 388 QTc: 479 Interpretive Statements SINUS RHYTHM Compared to ECG 10/24/2020 05:52:19 No significant changes Electronically Signed On 10-25-2020 16:07:04 HOSPITAL CHIEF EXECUTIVE OFFICER by Cristiano Aceves M.D. [id number]
--- NOTE | 2020-10-25 07:00 | XR_ITS ---
WS: [id number] Portable AP upright chest, 10/25/2020 Clinical Data: sob Comparison: Portable chest, 10/24/2020 Findings: The endotracheal tube and nasogastric tube remain in good position. The bilateral lower lob e opacities remain the same. The heart is at the upper limits of normal. The aortic arch is tortuous. Monitor leads are on the chest wall. XR/XR chest 1V portable [id number] Impression: No change from yesterday's portable chest.
[2020-10-25 07:48] LABS: Partial Thromboplastin Time 58.2 SECONDS (23.9-36.7)
[2020-10-25 08:31] LABS: Glucose Point of Care 176 mg/dL (70-110)
[2020-10-25] MEDS: propofol 1,000 MG/100 ML INJ 26.1 MG IV (08:44)
[2020-10-25] MEDS: aspirin 81 mg EC Tablet PO (08:55)
[2020-10-25] MEDS: atorvastatin 40 mg Tablet 80 MG PO (08:55)
[2020-10-25] MEDS: acetaminophen 325 mg Tablet 650 MG PO (08:55)
[2020-10-25] MEDS: clopidogrel 75 mg Tablet PO (08:56)
[2020-10-25] MEDS: lidocaine 1% 5 ML in potassium chloride premix 100 ML 25 ML IV (08:56)
[2020-10-25] MEDS: FUROsemide 10 mg/mL SDV 4mL 40 MG IVP ×2 (08:56→22:12)
[2020-10-25] MEDS: pantoprazole DR 40 mg Tablet PO ×2 (08:56→18:28)
--- NOTE | 2020-10-25 09:59 | P.PN_ITS ---
Subjective Subjective: Interval history: Currently patient was examined in ICU, she is intubated, on the ventilator, on minimal sedation, she does follow commands, she wiggles her toes, squeezes my finger to voiced understanding, her pupils are equal round reactive to light, I do not see any facial droop, she moves all her extremities, she can actually nod her head to questions, she remains afebrile, normotensive, urine output has been lackluster to diuretic therapy, she is doing well on the ventilator, chest x-ray show improvement in vascular congestion, plan on extubating later on this morning she tolerates spontaneous breathing trials well Vitals/I&O/Wt Last Vital Signs Temp 98.6 F 10/24/20 18:00 Pulse 97 10/25/20 09:00 Resp 18 10/25/20 09:25 BP 116/57 10/25/20 09:00 Pulse Ox 93 10/25/20 09:00 10/24/20 10/25/20 10/25/20 22:59 06:59 14:59 Intake Total 457.517 / 642.452 325.783 / 968.235 129.500 / 129.500 Output Total 650 / 1400 Balance -192.483 / -757.548 325.783 / -431.765 129.500 / 129.500 Weight last 48 hrs Weight 112.99 kg Physical Exam Narrative: EXAM NARRATIVE: Currently intubated, sedated on the ventilator, does withdraw from pain, pupils equal round reactive to light, does turn her head Const: COMMON NORMALS: no acute distress ORIENTATION/CONSCIOUSNESS: Yes awake; not oriented to person, not oriented to place and not oriented to time OTHER: Is intubated, on minimal sedation she follows commands, HENMT: COMMON NORMALS: normocephalic HEAD & SCALP: normocephalic Eye: COMMON NORMALS: Equal, round and reactive pupils present and EOMs intact bilaterally GENERAL EYE: appearance normal, both eyes and all related structures PUPIL: Yes Equal, round and reactive pupils present Neck/C-Spine: COMMON NORMALS: full ROM, no lymphadenopathy, no JVD and Thyroid normal THYROID: Thyroid normal Lymph: LYMPHATIC: no lymphadenopathy noted Resp: COMMON NORMALS: normal respiratory effort, No retractions, No use of accessory muscles and clear to auscultation bilaterally AUSCULTATION: clear to auscultation bilaterally, crackles and wheezes Cardio: COMMON NORMALS: no JVD, regular rate, regular rhythm, S1 normal heart sound present, S2 normal heart sound present, No gallops present (Cardio), No clicks present (Cardio) and No murmurs present (Cardio) RATE: regular rate RHYTHM: regular rhythm HEART SOUNDS: S1 normal heart sound present and S2 normal heart sound present GI: COMMON NORMALS: Normal to inspection, nondistended, normoactive bowel sounds present, Soft to palpation, non-tender, No hepatosplenomegaly present, no masses and no bruits PALPATION: Yes Soft to palpation and Yes No hepatosple nomegaly present Extremity: COMMON NORMALS: normal to inspection, full ROM, capillary refill normal, no clubbing, cyanosis or edema and no pedal edema Neuro: SENSORIUM/ORIENTATION: No oriented to person, No oriented to place and No oriented to time OTHER: Does not follow neurologic testing, does withdraw from pain, Babinski downgoing bilaterally, pupils equal round reactive to light Urinary Catheter Management^: Gore: Cath Placed During This Visit: yes Reason for Continuing Indwelling Catheter: Accurate Measurement of Urinary Output in Critically Ill Patients Urinary Catheter Date of Insertion: 10/23/20 Urinary Catheter Time of Insertion: 17:54 Data : 10/25/20 03:25 10/25/20 03:25 Micro: Microbiology 10/23/20 17:00 Urine Culture - Preliminary Urine Catheterized 10/23/20 19:12 Blood Culture - Preliminary Blood NEGATIVE TO DATE 10/23/20 19:12 Blood Culture - Preliminary Blood NEGATIVE TO DATE 10/23/20 17:05 Gram Stain - Final Sputum - Endotracheal Tube Aspirate A&P Assessment and plan (1) Cardiac arrest: Etiology concerning for cardiac etiology - does have a significant risk of pulmonary emboli, as she is recently had a patellar fracture, has been more immobile, knees in immobilizer, right calf is swollen compared to the left, venous ultrasounds negative for DVT, CT angiogram of the chest negative for pulmonary emboli -She does have significant cardiovascular history, hypertension, hyperlipidemia, smoker, history of RCA occlusion with collaterals, EKG normal sinus rhythm, first troponin 18, 6-hour troponin 94, with a delta of 76, thus she has an NSTEMI as a possible etiology -Certainly a brainstem stroke could be a possibility, she was quite hypertensive on admission, but currently following commands on minimal sedation, withdrawing from pain, has pupillary reflexes, blood pressures have been normotensive -CTA of the head and neck shows 50% stenosis bilateral internal and common carotid arteries -In addition acute flash pulmonary edema with hypertensive urgency is also playing a role, I am not exactly sure if this is the etiology behind her cardiac arrest in her symptomatology before the events that transpired, chest x-ray shows pulmonary edema which is improving, CT angiogram of the neck did show widespread interstitial and alveolar opacities of the lungs, urine output 1400 -She could also have a component of aspiration pneumonia, remains afebrile, white blood cell count 14.6 -Currently normotensive, afebrile, no significant episode tachycardia, no significant telemetry events -Following commands on minimal sedation, withdrawing from pain, squeezing my fingers Plan: -Admit to intensive care unit -Continue intubation, mechanical ventilation, minimize PEEP, minimize FiO2 -Do spontaneous breathing trials today, monitor heart rates, monitor mentation, plan on extubation today -propofol and fentanyl for sedation - Primaxin for aspiration pneumonia coverage -heparin drip for NSTEMI -Follow telemetry monitoring, follow EKGs, -Currently on aspirin, Plavix, heparin as above -Cardiac echocardiogram shows an EF of 70%, no regional wall motion abnormalities, grade 1 or 4 diastolic dysfunction, cardiology has been consulted -On Lasix 40 mg IV twice daily, potassium replacement, metolazone 1 dose given today -Currently normotensive, however if her systolic blood pressures greater than 180 or diastolics greater than 100, nitro drip can be started -Neurochecks, aspiration precautions, monitor for seizures -Insulin sliding scale for type 2 diabetes -Repeat ABG daily -Heparin for DVT prophylaxis -Protonix for GI prophylaxis -Patient is a full code -Prognosis is guarded, status is stable Status: Acute (2) Acute respiratory failure: Likely secondary acute flash pulmonary edema Status: Acute Qualifiers: Respiratory failure complication: unspecified whether with hypoxia or hypercapnia Qualified Code(s): J96.00 - Acute respiratory failure, unspecified whether with hypoxia or hypercapnia (3) Pulmonary edema: Status: Acute Qualifiers: Chronicity: acute Qualified Code(s): J81.0 - Acute pulmonary edema (4) Headache: Status: Acute Qualifiers: Headache chronicity pattern: unspecified pattern Headache type: unspecified Intractability: not intractable Qualified Code(s): R51.9 - Headache, unspecified (5) Hypertension: Status: Acute (6) Patella fracture: Status: Acute (7) Recurrent urinary tract infection: Status: Acute (8) Insulin dependent type 2 diabetes mellitus: Status: Acute (9) Hyperlipidemia: Status: Acute (10) COPD (chronic obstructive pulmonary disease): Status: Acute (11) History of colon cancer: Status: Acute (12) Chronic pain: Status: Acute (13) Internal carotid artery stenosis: Status: Acute (14) NSTEMI (non-ST elevated myocardial infarction): Status: Acute (15) Aspiration pneumonia: Status: Acute Attestations Medical Necessity Statement*: Patient requires hospitalization for cardiac arrest, NSTEMI, aspiration pneumonia, acute flash pulmonary edema, hypertensive urgency Coding Level of Care Code Acute Machine Fastener for [facility] Diagnoses Cardiac arrest I46.9 Acute respiratory failure J96.00 Respiratory failure complication: unspecified whether with hypoxia or hypercapnia Pulmonary edema J81.0 Chronicity: acute Headache R51.9 Headache chronicity pattern: unspecified pattern Headache type: unspecified Intractability: not intractable Hypertension I10 Patella fracture S82.009A Recurrent urinary tract infection N39.0 Insulin dependent type 2 diabetes mellitus E11.9; Z79.4 Hyperlipidemia E78.5 COPD (chronic obstructive pulmonary disease) J44.9 History of colon cancer Z85.038 Chronic pain G89.29 Internal carotid artery stenosis I65.29 NSTEMI (non-ST elevated myocardial infarction) I21.4 Aspiration pneumonia J69.0
[2020-10-25] MEDS: metOLazone 5 MG Tablet 10 MG PO (10:56)
[2020-10-25 12:31] LABS: Glucose Point of Care 203 mg/dL (70-110)
[2020-10-25] MEDS: labetalol 5 mg/mL SDV 20mL 10 MG IVP (13:22)
[2020-10-25] MEDS: heparin drip 25,000 UNIT/500 ML PREMIX 26 UNIT IV (13:22)
--- NOTE | 2020-10-25 14:11 | PC.NURSE ---
Pt's B/P elevated. Dr Caban, on unit, ordered NItro gtt and to restart the sedation. NO extubation today.
[2020-10-25] MEDS: nitroglycerin drip 50 MG/250 ML PREMIX IV (14:24)
--- NOTE | 2020-10-25 15:09 | PC.NURSE ---
Belongings, brought patient's phone, ground water contractor, and hearing aids to bedside. Patient to remain intubated. Belongings placed in bag and placed into closet. states lower dentures are at home with patient's daughter.
[2020-10-25] MEDS: propofol 1,000 MG/100 ML INJ 30.5 MG IV (16:01)
[2020-10-25 18:24] LABS: Partial Thromboplastin Time 54.8 SECONDS (23.9-36.7)
[2020-10-25 18:25] LABS: Glucose Point of Care 192 mg/dL (70-110)
[2020-10-25] MEDS: heparin 5,000 unit/mL INJ 1 mL IV (19:11)
[2020-10-25] MEDS: propofol 1,000 MG/100 ML INJ 34.8 MG IV (19:23)
--- NOTE | 2020-10-25 22:01 | P.PN_ITS ---
Subjective Subjective: Interval history: Patient is intubated and sedated. Opens eyes but doesnt respond. Vitals/I&O/Wt Last Vital Signs Temp 99.1 F 10/25/20 18:00 Pulse 96 10/25/20 21:00 Resp 14 10/25/20 21:43 BP 146/69 10/25/20 21:00 Pulse Ox 98 10/25/20 21:00 10/25/20 10/25/20 10/25/20 06:59 14:59 22:59 Intake Total 325.783 / 968.235 903.892 / 903.892 483.166 / 1387.058 Output Total 2700 / 2700 500 / 3200 Balance 325.783 / -431.765 -1796.108 / -1796.108 -16.834 / -1812.942 Physical Exam 2 Narrative: EXAM NARRATIVE: EXAM NARRATIVE: Const COMMON NORMALS: no acute distress ORIENTATION/CONSCIOUSNESS: Yes awake; not oriented to person, not oriented to place and not oriented to time OTHER: Is intubated, on minimal sedation she follows commands, HENMT COMMON NORMALS: normocephalic HEAD & SCALP: normocephalic Neck/C-Spine COMMON NORMALS: no JVD Resp COMMON NORMALS: normal respiratory effort, No retractions, No use of accessory muscles and clear to auscultation bilaterally AUSCULTATION: clear to auscultation bilaterally Cardio COMMON NORMALS: no JVD, regular rate, regular rhythm, S1 normal heart sound present and S2 normal heart sound present RATE: regular rate RHYTHM: regular rhythm HEART SOUNDS: S1 normal heart sound present and S2 normal heart sound present GI COMMON NORMALS: Normal to inspection, nondistended, normoactive bowel sounds present, Soft to palpation, non-tender, No hepatosplenomegaly present, no masses and no bruits PALPATION: Yes Soft to palpation and Yes No hepatosplenomegaly present Extremity COMMON NORMALS: capillary refill normal, no clubbing, cyanosis or edema and no pedal edema Neuro SENSORIUM/ORIENTATION: No oriented to person, No oriented to place and No oriented to time Psych COMMON NORMALS: mental status grossly normal Urinary Catheter Management^: Gore: Cath Placed During This Visit: yes Reason for Continuing Indwelling Catheter: Accurate Measurement of Urinary Output in Critically Ill Patients Urinary Catheter Date of Insertion: 10/23/20 Urinary Catheter Time of Insertion: 17:54 Data : 10/26/20 04:26 10/26/20 16:10 Micro: Microbiology 10/23/20 17:05 Gram Stain - Final Sputum - Endotracheal Tube Aspirate Sputum Culture - Preliminary 10/23/20 17:00 Urine Culture - Preliminary Urine Catheterized 10/23/20 19:12 Blood Culture - Preliminary Blood NEGATIVE TO DATE 10/23/20 19:12 Blood Culture - Preliminary Blood NEGATIVE TO DATE A&P Assessment and plan (1) Pulmonary edema: Status: Acute Qualifiers: Chronicity: acute Qualified Code(s): J81.0 - Acute pulmonary edema (2) Acute respiratory failure: Status: Acute Qualifiers: Respiratory failure complication: unspecified whether with hypoxia or hypercapnia Qualified Code(s): J96.00 - Acute respiratory failure, unspecified whether with hypoxia or hypercapnia (3) Cardiac arrest: Status: Acute (4) Insulin dependent type 2 diabetes mellitus: Status: Acute (5) Hyperlipidemia: Status: Acute (6) COPD (chronic obstructive pulmonary disease): Status: Acute (7) Hypertension: Status: Acute (8) NSTEMI (non-ST elevated myocardial infarction): Status: Acute Patient had out of hospital cardiac arrest. No PE on CTA Troponin elevation in setting of CPR. Her echocardiogram shows normal LV systolic function with no regional wall motion abnormalities. EKG does not show ST elevations or significant ischemic changes. Continue heparin drip. Once patient is extubated, can consider performing coronary angiography to rule out coronary artery disease. Continue aspirin and statin Thank you for involving us with care of this patient. We will continue to follow. Please call with questions. Attestations Medical Necessity Statement*: Care expected to cross 2 midnights. Coding Level of Care Code Acute Seam Taper Machine for [facility] Diagnoses Pulmonary edema J81.0 Chronicity: acute Acute respiratory failure J96.00 Respiratory failure complication: unspecified whether with hypoxia or hypercapnia Cardiac arrest I46.9 Insulin dependent type 2 diabetes mellitus E11.9; Z79.4 Hyperlipidemia E78.5 COPD (chronic obstructive pulmonary disease) J44.9 Hypertension I10 NSTEMI (non-ST elevated myocardial infarction) I21.4
[2020-10-26] VITALS (40 sets, daily range): BP systolic 96–172; BP diastolic 58–106; PULSE 73–107; RESP 8–22; TEMP 36.6–38; O2SAT 92–100
[2020-10-26] MEDS: propofol 1,000 MG/100 ML INJ 17.4 MG IV (00:06)
[2020-10-26] MEDS: ipratropium-albuterol 3 mL Neb INHALATION ×6 (00:18→23:58)
[2020-10-26 00:58] LABS: Partial Thromboplastin Time > 250.0 SECONDS (23.9-36.7)
[2020-10-26 05:21] LABS: Basophils # 0.1 10^3/uL (0.0-0.1); Basophils % 0.4 %; Eosinophils # 0.4 10^3/uL (0.0-0.8); Hematocrit 36.3 % (37.0-47.0); Hemoglobin 11.6 g/dL (11.5-15.3); Lymphocytes % 22.2 %; Mean Corpuscular Hemoglobin 30.2 pg (28.0-34.0); Mean Corpuscular Volume 94.5 fL (81-99); Mean Platelet Volume 10.5 fL (7.4-10.4); Monocytes % 5.6 %; Neutrophils # 12.38 10^3/uL (1.8-7.7); Neutrophils % 69.4 %; Nucleated Red Blood Cells % 0 %; Platelet Count 209 10^3/cmm (130-400); Red Blood Count 3.84 10^6/uL (4.1-5.3); Red Cell Distribution Width 14.1 % (12.1-15.1); White Blood Count 17.9 10^3/uL (4.0-10.0)
[2020-10-26 05:32] LABS: ABG PCO2 46.9 mmHg (35-45); Base Excess ABG 11.3 mmol/L (-2.0-2.0); Blood Gas Allen Test Pos; Blood Gas Operator Identificat JB; Blood Gas Sample Site Radial, right; Blood Gas Sample Type Arterial; HCO3 ABG 36.1 mmol/L (22-26); Oxygen Device VENT; PO2 ABG 55.1 mmHg (80.0-100.0)
[2020-10-26 05:33] LABS: Alanine Aminotransferase 9 U/L (0-33); Albumin Level 3.3 g/dL (3.5-5.2); Alkaline Phosphatase 136 IU/L (35-105); Anion Gap 16.7 (5-19); Aspartate Amino Transferase 9 U/L (0-32); Blood Urea Nitrogen 15 mg/dL (8-23); C Reactive Protein 174.2 mg/L (0.0-4.9); Carbon Dioxide 33 mmol/L (22-29); Chloride 93 mmol/L (98-107); Globulin 3.6 g/dL (1.3-4.6); Glomerular Filtration Rate 56.4 mL/min (90-130); Glucose 128 mg/dL (65-115); Magnesium 1.7 mg/dL (1.7-2.3); Osmolality Calculated 292 mOsm/kg (285-295); Phosphorus 4.5 mg/dL (2.5-4.5); Sodium 140 mmol/L (136-145); Total Bilirubin 0.8 mg/dL (0.15-1.2); Total Protein 6.9 g/dL (6.6-8.7)
[2020-10-26 05:34] LABS: INR 1.05 (0.8-1.2); Potassium 2.7 mmol/L (3.5-5.1)
[2020-10-26 05:37] LABS: Lactate (Lactic Acid level) 1.4 mmol/L (0.5-2.2)
[2020-10-26 05:38] LABS: D Dimer 1.37 ug/mIFEU (0-0.59)
[2020-10-26 06:00] LABS: NT Pro B Type Natriuretic Pept 679 pg/mL (0-125); Procalcitonin 0.09 ng/mL (0-0.5)
--- NOTE | 2020-10-26 06:00 | ECG_ITS ---
[facility] Test Date: 2020-10-26 Pat Name: Melissa Kinney Department: Room: [facility] Gender: Female Casing Fluid Tender: : 1960 Requested By: Donis Caban Order Number: [id number] Rambo MD: Rhett Mcqueen M.D. Measurements Intervals [place] Rate: 103 P: 57 NC: 184 QRS: 41 QRSD: 84 T: 52 QT: 367 QTc: 481 Interpretive Statements SINUS TACHYCARDIA POSSIBLE LEFT ATRIAL ENLARGEMENT [-0.1mV P WAVE IN V1/V2] ABNORMAL RHYTHM ECG Compared to ECG 10/25/2020 08:06:19 Sinus rhythm no longer present Electronically Signed On 10-27-2020 19:29:51 PHARMACIST INTERN by Rhett Mcqueen M.D. [id number]
[2020-10-26 06:11] LABS: Creatine Phosphokinase 37 U/L (26-192)
[2020-10-26] MEDS: potassium chloride premix 100 ML 25 MEQ IV ×2 (06:12→09:00)
[2020-10-26] MEDS: propofol 1,000 MG/100 ML INJ 30.5 MG IV ×2 (06:25→09:45)
--- NOTE | 2020-10-26 07:00 | XR_ITS ---
WS: [id number] Portable AP semiupright chest, 10/26/2020 Clinical Data: sob Comparison: Portable chest, 10/25/2020 Findings: The right lower lobe opacity has cleared. There is minimal opacity overlying the left diaph ragm. The endotracheal tube and nasogastric tube remain in good position. The heart size is normal. T here are monitor leads on the chest wall. XR/XR chest 1V portable [id number] Impression: 1. Clearing of right lower lobe opacity. 2. Improvement in left lower lobe opacity. 3. No change in endotracheal tube and nasogastric tube.
[2020-10-26 07:29] LABS: Glucose Point of Care 163 mg/dL (70-110)
[2020-10-26 08:00] LABS: Partial Thromboplastin Time 24.9 SECONDS (23.9-36.7)
[2020-10-26] MEDS: heparin drip 25,000 UNIT/500 ML PREMIX 63.3 UNIT IV (08:04)
[2020-10-26] MEDS: atorvastatin 40 mg Tablet 80 MG PO (08:19)
[2020-10-26] MEDS: FUROsemide 10 mg/mL SDV 4mL 40 MG IVP (08:19)
[2020-10-26] MEDS: aspirin 81 mg EC Tablet PO (08:20)
[2020-10-26] MEDS: metOLazone 5 MG Tablet 10 MG PO (08:20)
[2020-10-26] MEDS: isosorbide mononitrate ER 30 mg Tablet PO (08:20)
[2020-10-26] MEDS: clopidogrel 75 mg Tablet PO (08:20)
[2020-10-26] MEDS: pantoprazole DR 40 mg Tablet PO ×2 (08:20→17:52)
[2020-10-26] MEDS: metoprolol tartrate 25 mg Tablet PO ×2 (08:22→20:38)
[2020-10-26] MEDS: vancomycin 1,250 MG/250 ML PIGGYBACK 200 MG IV ×2 (09:00→20:38)
[2020-10-26 09:12] LABS: Partial Thromboplastin Time 44.6 SECONDS (23.9-36.7)
[2020-10-26] MEDS: heparin 5,000 unit/mL INJ 1 mL IV (10:04)
--- NOTE | 2020-10-26 10:59 | P.PN_ITS ---
Subjective Subjective: Interval history: This morning patient was examined, she remains intubated, on the ventilator, currently on weaning sedation, she follows commands, she nods her head, she wiggles her toes, she squeezes my finger, she diuresed over 5 L yesterday, chest x-rays are significantly improved this morning, she did have a temperature of 100.4 overnight, she does have thick secretions coming from the endotracheal tube, her blood pressures are much improved with the nitro drip, which has currently been turned off Vitals/I&O/Wt Last Vital Signs Temp 98.4 F 10/26/20 08:00 Pulse 104 H 10/26/20 08:35 Resp 13 10/26/20 10:14 BP 114/69 10/26/20 08:00 Pulse Ox 100 10/26/20 08:31 10/25/20 10/26/20 10/26/20 22:59 06:59 14:59 Intake Total 645.083 / 1548.975 619.83 / 2168.805 472 / 472 Output Total 500 / 3200 2300 / 5500 800 / 800 Balance 145.083 / -1651.025 -1680.17 / -3331.195 -328 / -328 Physical Exam Const: OTHER: Currently follows commands on minimal sedation on the ventilator HENMT: COMMON NORMALS: normocephalic HEAD & SCALP: normocephalic Neck/C-Spine: COMMON NORMALS: no JVD Resp: COMMON NORMALS: normal respiratory effort, No retractions, No use of accessory muscles and clear to auscultation bilaterally AUSCULTATION: clear to auscultation bilaterally Cardio: COMMON NORMALS: no JVD, regular rate, regular rhythm, S1 normal heart sound present and S2 normal heart sound present RATE: regular rate RHYTHM: regular rhythm HEART SOUNDS: S1 normal heart sound present and S2 normal heart sound present GI: COMMON NORMALS: Normal to inspection, nondistended, normoactive bowel sounds present, Soft to palpation, non-tender, No hepatosplenomegaly present, no masses and no bruits PALPATION: Yes Soft to palpation and Yes No hepatosplenomegaly present Extremity: COMMON NORMALS: capillary refill normal, no clubbing, cyanosis or edema, no calf tenderness and no pedal edema Urinary Catheter Management^: Gore: Cath Placed During This Visit: yes Reason for Continuing Indwelling Catheter: Accurate Measurement of Urinary Output in Critically Ill Patients Urinary Catheter Date of Insertion: 10/23/20 Urinary Catheter Time of Insertion: 17:54 Data : 10/26/20 04:26 10/26/20 04:26 Micro: Microbiology 10/23/20 17:05 Gram Stain - Final Sputum - Endotracheal Tube Aspirate Sputum Culture - Preliminary Staphylococcus aureus 10/26/20 08:50 Blood Culture - Preliminary Blood SPECIMEN COLLECTED 10/26/20 08:44 Blood Culture - Preliminary Blood SPECIMEN COLLECTED 10/23/20 17:00 Urine Culture - Preliminary Urine Catheterized A&P Assessment and plan (1) Cardiac arrest: Etiology concerning for cardiac etiology - does have a significant risk of pulmonary emboli, as she is recently had a patellar fracture, has been more immobile, knees in immobilizer, right calf is swollen compared to the left, venous ultrasounds negative for DVT, CT angiogram of the chest negative for pulmonary emboli -She does have significant cardiovascular history, hypertension, hyperlipidemia, smoker, history of RCA occlusion with collaterals, EKG normal sinus rhythm, first troponin 18, 6-hour troponin 94, with a delta of 76, thus she has an NSTEMI as a possible etiology -Certainly a brainstem stroke could be a possibility, she was quite hypertensive on admission, but currently following commands on minimal sedation, withdrawing from pain, has pupillary reflexes, blood pressures have been normotensive -CTA of the head and neck shows 50% stenosis bilateral internal and common carotid arteries -In addition acute flash pulmonary edema with hypertensive urgency is also playing a role, I am not exactly sure if this is the etiology behind her cardiac arrest in her symptomatology before the events that transpired, chest x-ray shows pulmonary edema which is improving, CT angiogram of the neck did show widespread interstitial and alveolar opacities of the lungs, urine output 1400 -She could also have a component of aspiration pneumonia, one febrile episode overnight 100.4, white blood cell count 17.9 -Currently normotensive, afebrile, no significant episode tachycardia, no significant telemetry events -Following commands on minimal sedation, withdrawing from pain, squeezing my fingers Plan: -Admit to intensive care unit -Plan to extubate this morning after Lasix and metolazone dose - Primaxin for aspiration pneumonia coverage, will add vancomycin given fever, repeat blood cultures sputum cultures urine cultures, MRSA nares PCR -heparin drip for NSTEMI, plans are to do a cardiac catheterization hopefully on Thursday -Follow telemetry monitoring, follow EKGs, -Currently on aspirin, Plavix, heparin as above -Cardiac echocardiogram shows an EF of 70%, no regional wall motion abnormalities, grade 1 or 4 diastolic dysfunction, cardiology has been consulted -Hold further Lasix dosing after dose this morning, as creatinine is 1.0 -Off nitro drip, continue home Imdur, metoprolol 25 twice daily -Neurochecks, aspiration precautions, monitor for seizures -Insulin sliding scale for type 2 diabetes -Repeat ABG daily -Heparin for DVT prophylaxis -Protonix for GI prophylaxis -Patient is a full code -Prognosis is guarded, status is stable Status: Acute (2) Acute respiratory failure: Likely secondary acute flash pulmonary edema Status: Acute Qualifiers: Respiratory failure complication: unspecified whether with hypoxia or hypercapnia Qualified Code(s): J96.00 - Acute respiratory failure, unspecified whether with hypoxia or hypercapnia (3) Pulmonary edema: Status: Acute Qualifiers: Chronicity: acute Qualified Code(s): J81.0 - Acute pulmonary edema (4) Headache: Status: Acute Qualifiers: Headache chronicity pattern: unspecified pattern Headache type: unspecified Intractability: not intractable Qualified Code(s): R51.9 - Headache, unspecified (5) Hypertension: Status: Acute (6) Patella fracture: Status: Acute (7) Recurrent urinary tract infection: Status: Acute (8) Insulin dependent type 2 diabetes mellitus: Status: Acute (9) Hyperlipidemia: Status: Acute (10) COPD (chronic obstructive pulmonary disease): Status: Acute (11) History of colon cancer: Status: Acute (12) Chronic pain: Status: Acute (13) Internal carotid artery stenosis: Status: Acute (14) NSTEMI (non-ST elevated myocardial infarction): Status: Acute (15) Aspiration pneumonia: Status: Acute Attestations Medical Necessity Statement*: Patient requires hospitalization status post cardiac arrest, respiratory failure, aspiration pneumonia, NSTEMI, requiring ICU level care, critical care time spent over 50 minutes Coding Level of Care Code Acute Installer Helper for [facility] Diagnoses Cardiac arrest I46.9 Acute respiratory failure J96.00 Respiratory failure complication: unspecified whether with hypoxia or hype rcapnia Pulmonary edema J81.0 Chronicity: acute Headache R51.9 Headache chronicity pattern: unspecified pattern Headache type: unspecified Intractability: not intractable Hypertension I10 Patella fracture S82.009A Recurrent urinary tract infection N39.0 Insulin dependent type 2 diabetes mellitus E11.9; Z79.4 Hyperlipidemia E78.5 COPD (chronic obstructive pulmonary disease) J44.9 History of colon cancer Z85.038 Chronic pain G89.29 Internal carotid artery stenosis I65.29 NSTEMI (non-ST elevated myocardial infarction) I21.4 Aspiration pneumonia J69.0
--- NOTE | 2020-10-26 15:09 | PC.NURSE ---
weaned off vent and extubated at 1415 removed restaints at this time ... head of bed elevated
[2020-10-26 16:31] LABS: Partial Thromboplastin Time 57.1 SECONDS (23.9-36.7)
[2020-10-26 16:41] LABS: Potassium 3.4 mmol/L (3.5-5.1)
[2020-10-26 18:11] LABS: Glucose Point of Care 169 mg/dL (70-110)
[2020-10-26 18:15] LABS: Glucose Point of Care 188 mg/dL (70-110)
[2020-10-26] MEDS: amlodipine 10 mg Tablet PO (19:33)
[2020-10-26] MEDS: ondansetron 2 mg/ML SDV 2 mL 4 MG IVP (21:09)
--- NOTE | 2020-10-26 21:12 | P.PN_ITS ---
Subjective Subjective: Interval history: Patient is still intubated and sedated. Plan for extubation attempt again today. Vitals/I&O/Wt Last Vital Signs Temp 98 F 10/26/20 12:00 Pulse 94 10/26/20 20:53 Resp 16 10/26/20 16:00 BP 169/88 10/26/20 16:00 Pulse Ox 95 10/26/20 20:46 10/26/20 10/26/20 10/26/20 06:59 14:59 22:59 Intake Total 619.83 / 2168.805 766.775 / 766.775 850 / 1616.775 Output Total 2300 / 5500 2600 / 2600 1000 / 3600 Balance -1680.17 / -3331.195 -1833.225 / -1833.225 -150 / -1982.225 Physical Exam Narrative: EXAM NARRATIVE: EXAM NARRATIVE: Const COMMON NORMALS: no acute distress ORIENTATION/CONSCIOUSNESS: Yes awake; not oriented to person, not oriented to place and not oriented to time OTHER: Is intubated, on minimal sedation she follows commands, HENMT COMMON NORMALS: normocephalic HEAD & SCALP: normocephalic Neck/C-Spine COMMON NORMALS: no JVD Resp COMMON NORMALS: normal respiratory effort, No retractions, No use of accessory muscles and clear to auscultation bilaterally AUSCULTATION: clear to auscultation bilaterally Cardio COMMON NORMALS: no JVD, regular rate, regular rhythm, S1 normal heart sound present and S2 normal heart sound present RATE: regular rate RHYTHM: regular rhythm HEART SOUNDS: S1 normal heart sound present and S2 normal heart sound present GI COMMON NORMALS: Normal to inspection, nondistended, normoactive bowel sounds present, Soft to palpation, non-tender, No hepatosplenomegaly present, no masses and no bruits PALPATION: Yes Soft to palpation and Yes No hepatosplenomegaly present Extremity COMMON NORMALS: capillary refill normal, no clubbing, cyanosis or edema and no pedal edema Neuro SENSORIUM/ORIENTATION: No oriented to person, No oriented to place and No oriented to time Psych COMMON NORMALS: mental status grossly normal Urinary Catheter Management^: Groe: Cath Placed During This Visit: yes Reason for Continuing Indwelling Catheter: Accurate Measurement of Urinary O utput in Critically Ill Patients Urinary Catheter Date of Insertion: 10/23/20 Urinary Catheter Time of Insertion: 17:54 Data : 10/27/20 05:25 10/27/20 05:25 Micro: Microbiology 10/26/20 08:30 Gram Stain - Final Sputum - Endotracheal Tube Aspirate 10/23/20 17:00 Urine Culture - Final Urine Catheterized 10/23/20 17:05 Gram Stain - Final Sputum - Endotracheal Tube Aspirate Sputum Culture - Preliminary Staphylococcus aureus 10/26/20 08:50 Blood Culture - Preliminary Blood SPECIMEN COLLECTED 10/26/20 08:44 Blood Culture - Preliminary Blood SPECIMEN COLLECTED A&P Assessment and plan (1) Pulmonary edema: Status: Acute Qualifiers: Chronicity: acute Qualified Code(s): J81.0 - Acute pulmonary edema (2) Acute respiratory failure: Status: Acute Qualifiers: Respiratory failure complication: unspecified whether with hypoxia or hypercapnia Qualified Code(s): J96.00 - Acute respiratory failure, unspecified whether with hypoxia or hypercapnia (3) Cardiac arrest: Status: Acute (4) Insulin dependent type 2 diabetes mellitus: Status: Acute (5) Hyperlipidemia: Status: Acute (6) COPD (chronic obstructive pulmonary disease): Status: Acute (7) Hypertension: Status: Acute (8) NSTEMI (non-ST elevated myocardial infarction): Status: Acute Patient had out of hospital cardiac arrest. No PE on CTA Troponin elevation in setting of CPR. Her echocardiogram shows normal LV systolic function with no regional wall motion abnormalities. EKG does not show ST elevations or significant ischemic changes. Continue heparin drip. Once patient is extubated, can consider performing coronary angiography to rule out coronary artery disease. Continue diuretics Continue aspirin and statin Thank you for involving us with care of this patient. We will continue to follow. Please call with questions. 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
[2020-10-26 23:30] LABS: Partial Thromboplastin Time 65.9 SECONDS (23.9-36.7)
[2020-10-27] VITALS (34 sets, daily range): BP systolic 127–190; BP diastolic 69–127; PULSE 62–119; RESP 10–19; TEMP 36.3–37; O2SAT 90–100
[2020-10-27] MEDS: heparin drip 25,000 UNIT/500 ML PREMIX 33 UNIT IV (01:21)
[2020-10-27] MEDS: ipratropium-albuterol 3 mL Neb INHALATION ×5 (03:35→20:11)
[2020-10-27 05:52] LABS: Basophils # 0.1 10^3/uL (0.0-0.1); Basophils % 0.5 %; Eosinophils # 0.3 10^3/uL (0.0-0.8); Eosinophils % 1.4 %; Hematocrit 41.7 % (37.0-47.0); Hemoglobin 13.5 g/dL (11.5-15.3); Lymphocytes # 2.8 10^3/uL (0.8-4.8); Lymphocytes % 15.2 %; Mean Corpuscular HGB Conc 32.4 g/dL (30.0-36.0); Mean Corpuscular Hemoglobin 29.7 pg (28.0-34.0); Mean Corpuscular Volume 91.9 fL (81-99); Mean Platelet Volume 10.4 fL (7.4-10.4); Monocytes # 0.7 10^3/uL (0.2-0.9); Monocytes % 3.9 %; Neutrophils # 14.37 10^3/uL (1.8-7.7); Neutrophils % 78.6 %; Nucleated Red Blood Cells % 0 %; Platelet Count 267 10^3/cmm (130-400); Red Blood Count 4.54 10^6/uL (4.1-5.3); Red Cell Distribution Width 13.7 % (12.1-15.1); White Blood Count 18.3 10^3/uL (4.0-10.0)
[2020-10-27 06:26] LABS: NT Pro B Type Natriuretic Pept 263 pg/mL (0-125); Procalcitonin 0.07 ng/mL (0-0.5)
[2020-10-27 06:27] LABS: INR 1.14 (0.8-1.2)
[2020-10-27 06:37] LABS: Alanine Aminotransferase 8 U/L (0-33); Albumin Level 3.8 g/dL (3.5-5.2); Alkaline Phosphatase 137 IU/L (35-105); Aspartate Amino Transferase 9 U/L (0-32); Blood Urea Nitrogen 16 mg/dL (8-23); C Reactive Protein 169.5 mg/L (0.0-4.9); Calcium 9.5 mg/dL (8.5-10.5); Carbon Dioxide 31 mmol/L (22-29); Chloride 91 mmol/L (98-107); Globulin 4.2 g/dL (1.3-4.6); Glomerular Filtration Rate 85.1 mL/min (90-130); Glucose 147 mg/dL (65-115); Osmolality Calculated 294 mOsm/kg (285-295); Phosphorus 4.8 mg/dL (2.5-4.5); Sodium 140 mmol/L (136-145)
--- NOTE | 2020-10-27 07:00 | XRR_ITS ---
PROCEDURE INFORMATION: Exam: XR Chest, 1 View Exam date and time: 10/27/2020 6:25 AM Age: 60 years old Clinical indication: Shortness of breath; Patient HX: On vent; Additional info: SOB TECHNIQUE: Imaging protocol: XR of the chest Views: 1 view. COMPARISON: CR XR chest 1V portable [id number] 10/26/2020 6:22 AM FINDINGS: Lungs: Unremarkable. No consolidation. Pleural spaces: Unremarkable. No pleural effusion. No pneumothorax. Heart/Mediastinum: Unremarkable. No cardiomegaly. Bones/joints: Unremarkable. XR/XR chest 1V portable [id number] IMPRESSION: No acute findings.
[2020-10-27] MEDS: ondansetron 2 mg/ML SDV 2 mL 4 MG IVP ×3 (07:15→21:25)
--- NOTE | 2020-10-27 07:29 | PC.NURSE ---
nauseated with emesis .. zofran given
[2020-10-27 08:32] LABS: Partial Thromboplastin Time 94.5 SECONDS (23.9-36.7)
[2020-10-27] MEDS: lidocaine 1% 5 ML in potassium chloride premix 100 ML 25 ML IV (08:38)
[2020-10-27] MEDS: amlodipine 10 mg Tablet PO (08:39)
[2020-10-27] MEDS: aspirin 81 mg EC Tablet PO (08:39)
[2020-10-27] MEDS: isosorbide mononitrate ER 30 mg Tablet PO (08:40)
[2020-10-27] MEDS: pantoprazole DR 40 mg Tablet PO ×2 (08:40→17:26)
[2020-10-27] MEDS: atorvastatin 40 mg Tablet 80 MG PO (08:40)
[2020-10-27] MEDS: clopidogrel 75 mg Tablet PO (08:40)
[2020-10-27] MEDS: metoprolol tartrate 25 mg Tablet PO ×2 (08:44→21:24)
[2020-10-27] MEDS: FUROsemide 10 mg/mL SDV 4mL 40 MG IVP ×2 (09:27→21:25)
[2020-10-27 10:08] LABS: Vancomycin Trough 12.6 ug/mL (10-15)
[2020-10-27] MEDS: vancomycin 1,250 MG/250 ML PIGGYBACK 200 MG IV ×2 (10:16→21:25)
[2020-10-27] MEDS: lisinopril 20 mg Tablet PO ×2 (10:43→17:26)
--- NOTE | 2020-10-27 10:45 | PM.PN ---
Subjective Subjective: Interval history: Patient was examined this morning, she was successfully extubated yesterday on 2-3 L nasal cannula, has had a good cough, remains hypertensive overnight, afebrile for the last 24 hours This morning during my examination I noticed a couple of things, patient speech seems a bit slurred, she has some degree of receptive aphasia, but she is hard of hearing, she does follow commands, she alert to person, place, not to time, I do detect a little bit of a left facial droop, and left upper and left lower extremity weakness compared to the right she does have positive cerebellar symptoms,, her NIH stroke scale 4, her last known well normal was 10/23/2020 at roughly 5 PM or so Vitals/I&O/Wt Last Vital Signs Temp 98.3 F 10/27/20 04:24 Pulse 89 10/27/20 09:01 Resp 16 10/27/20 08:57 BP 190/84 10/27/20 04:00 Pulse Ox 95 10/27/20 08:57 10/26/20 10/27/20 10/27/20 22:59 06:59 14:59 Intake Total 950 / 1716.775 350 / 350 Output Total 1000 / 3600 1200 / 4800 Balance -50 / -1883.225 -1200 / -3083.225 350 / 350 Physical Exam Const: ORIENTATION/CONSCIOUSNESS: Yes oriented to person and Yes oriented to place; not oriented to time Neuro: SENSORIUM/ORIENTATION: Yes alert, Yes oriented to person, Yes oriented to place and No oriented to time SPEECH: abnormal speech Details: slurred and stuttering MOTOR EXAM: Abnormal motor strength present OTHER: Left upper extremity strength 4-5 compared to 5 out of 5 on the right Left lower extremity strength 4 out of 5 compared to 5 out of 5 on the right Does have minimal left facial droop Does have positive cerebellar signs Urinary Catheter Management^: Gore: Cath Placed During This Visit: yes Reason for Continuing Indwelling Catheter: Accurate Measurement of Urinary Output in Critically Ill Patients Urinary Catheter Date of Insertion: 10/23/20 Urinary Catheter Time of Insertion: 17:54 Data : 10/27/20 05:25 10/27/20 05:25 Micro: Microbiology 10/26/20 08:30 Gram Stain - Final Sputum - Endotracheal Tube Aspirate Sputum Culture - Preliminary 10/26/20 08:50 Blood Culture - Preliminary Blood NEGATIVE TO DATE 10/23/20 17:05 Gram Stain - Final Sputum - Endotracheal Tube Aspirate Sputum Culture - Final Staphylococcus aureus 10/26/20 08:44 Blood Culture - Preliminary Blood NEGATIVE TO DATE 10/23/20 17:00 Urine Culture - Final Urine Catheterized A&P Assessment and plan (1) CVA (cerebral vascular accident): -Head CT on admission did not show any acute stroke -CTA of the head and neck shows 50% stenosis bilateral internal and common carotid arteries -Her admission diagnosis, she did have headaches, altered mental status -She has been on aspirin, Plavix, statin, heparin since admission -This morning I can notice a bit of slurring and stuttering of her speech, slight left facial droop, left upper and left lower extremity strength is 4-5 compared to 5 out of 5 on the right, she does have some positive cerebellar signs, no gaze palsy, no paresthesias, some degree of receptive aphasia but she is hard of hearing, NIH stroke scale 4, last known normal was October 23, 2019 Plan: -Repeat head CT -We will order a brain MRI -PT OT, speech therapy -Continue aspirin, statin, Plavix -Neurochecks, aspiration precautions, NIH stroke scale Status: Acute (2) Cardiac arrest: Etiology concerning for cardiac etiology -She does have significant cardiovascular history, hypertension, hyperlipidemia, smoker, history of RCA occlusion with collaterals, EKG normal sinus rhythm, first troponin 18, 6-hour troponin 94, with a delta of 76, thus she has an NSTEMI as a possible etiology -In addition acute flash pulmonary edema with hypertensive urgency is also playing a role, I am not exactly sure if this is the etiology behind her cardiac arrest in her symptomatology before the events that transpired, chest x-ray shows pulmonary edema which is improving, CT angiogram of the neck did show widespread interstitial and alveolar opacities of the lungs -Currently pulmonary edema has improved, patient is -6.5 L, chest x-ray shows improved pulmonary edema -Currently hypertensive, afebrile, no significant episode tachycardia, no significant telemetry events Plan: -Admit to intensive care unit -Successfully extubated 08/25/2021, to 3 L - Primaxin for aspiration pneumonia coverage, vancomycin added yesterday for fevers, repeat blood cultures, sputum cultures, urine cultures -heparin drip for NSTEMI, plans are to do a cardiac catheterization hopefully on Thursday -Follow telemetry monitoring, follow EKGs, -Currently on aspirin, Plavix, heparin as above -Cardiac echocardiogram shows an EF of 70%, no regional wall motion abnormalities, grade 1 or 4 diastolic dysfunction, cardiology has been consulted -Continue Lasix 40 mg IV twice daily, with potassium replacement -Potassium replacement -Neurochecks, aspiration precautions, monitor for seizures -Insulin sliding scale for type 2 diabetes -Heparin for DVT prophylaxis -Protonix for GI prophylaxis -Patient is a full code Status: Acute (3) Acute respiratory failure: Likely secondary acute flash pulmonary edema Status: Acute Qualifiers: Respiratory failure complication: unspecified whether with hypoxia or hypercapnia Qualified Code(s): J96.00 - Acute respiratory failure, unspecified whether with hypoxia or hypercapnia (4) Pulmonary edema: Status: Acute Qualifiers: Chronicity: acute Qualified Code(s): J81.0 - Acute pulmonary edema (5) Headache: Status: Acute Qualifiers: Headache chronicity pattern: unspecified pattern Headache type: unspecified Intractability: not intractable Qualified Code(s): R51.9 - Headache, unspecified (6) Hypertension: Status: Acute (7) Patella fracture: Status: Acute (8) Recurrent urinary tract infection: Status: Acute (9) Insulin dependent type 2 diabetes mellitus: Status: Acute (10) Hyperlipidemia: Status: Acute (11) COPD (chronic obstructive pulmonary disease): Status: Acute (12) History of colon cancer: Status: Acute (13) Chronic pain: Status: Acute (14) Internal carotid artery stenosis: Status: Acute (15) NSTEMI (non-ST elevated myocardial infarction): Status: Acute (16) Aspiration pneumonia: -Has been on Primaxin since hospital mission -All cultures have been unremarkable -Yesterday had a fever -Vancomycin added for antibiotic coverage -MRSA nares PCR, sputum cultures blood cultures, urine cultures repeated Status: Acute (17) Hypertensive urgency: -Continue metoprolol 25 mg twice daily -Norvasc 10 mg added -On Lasix 40 IV twice daily -On Imdur 30 mg daily -Lisinopril 20 mg twice daily Status: Acute Attestations Medical Necessity Statement*: Patient requires hospitalization for cardiac arrest, acute flash pulmonary edema, hypertensive urgency, CVA Coding Level of Care Code Acute Mechanical Integrity Specialist for [facility] Diagnoses CVA (cerebral vascular accident) I63.9 Cardiac arrest I46.9 Acute respiratory failure J96.00 Respiratory failure complication: unspecified whether with hypoxia or hypercapnia Pulmonary edema J81.0 Chronicity: acute Headache R51.9 Headache chronicity pattern: unspecified pattern Headache type: unspecified Intractability: not intractable Hypertension I10 Patella fracture S82.009A Recurrent urinary tract infection N39.0 Insulin dependent type 2 diabetes mellitus E11.9; Z79.4 Hyperlipidemia E78.5 COPD (chronic obstructive pulmonary disease) J44.9 History of colon cancer Z85.038 Chronic pain G89.29 Internal carotid artery stenosis I65.29 NSTEMI (non-ST elevated myocardial infarction) I21.4 Aspiration pneumonia J69.0 Hypertensive urgency I16.0
--- NOTE | 2020-10-27 10:58 | CTR_ITS ---
PROCEDURE INFORMATION: Exam: CT Head Without Contrast Exam date and time: 10/27/2020 11:04 AM Age: 60 years old Clinical indication: Altered mental status/memory loss; Additional info: CVA TECHNIQUE: Imaging protocol: Computed tomography of the head without contrast. Radiation optimization: All CT scans at this facility use at least one of these dose optimization techniques: automated exposure control; mA and/or kV adjustment per patient size (includes targeted exams where dose is matched to clinical indication); or iterative reconstruction. COMPARISON: CT head wo con* [id number] 10/23/2020 4:55 PM RADIATION DOSE METRICS: Total DLP (mGy-cm): 838.55 FINDINGS: Brain: There is mild patchy decreased density of the white matter which is consistent with mild chronic small vessel white matter ischemia. No intracranial hemorrhage, edema or other acute abnormalities are seen in the brain. There is no mass effect or midline shift. Cerebral ventricles: No ventriculomegaly. Bones/joints: Unremarkable. No acute fracture. Paranasal sinuses: There is mucosal thickening in the sphenoid sinus. Mastoid air cells: Visualized mastoid air cells are well aerated. Soft tissues: Unremarkable. CT/CT head wo con* [id number] IMPRESSION: No acute intracranial abnormality. Radiation Dose CTDIVOL = (mGy): DLP = 838.55 (mGy-cm)
[2020-10-27 11:55] LABS: Glucose Point of Care 182 mg/dL (70-110)
[2020-10-27 12:07] LABS: Glucose Point of Care 181 mg/dL (70-110)
--- NOTE | 2020-10-27 13:57 | P.PN_ITS ---
Subjective Subjective: Interval history: Patient has no chest pain or shortness of breath. She does not answer to questions. Patient is known to have dementia. No fever, chills or cough. The blood pressure seems to be elevated. She was extubated yesterday. She is going to have a CT scan because of the mental status changes? Vitals/I&O/Wt Last Vital Signs Temp 97.4 F L 10/27/20 08:00 Pulse 67 10/27/20 12:00 Resp 17 10/27/20 12:00 BP 186/92 10/27/20 12:00 Pulse Ox 93 10/27/20 12:00 10/26/20 10/27/20 10/27/20 22:59 06:59 14:59 Intake Total 950 / 0655.275 5516.000 / 1245.000 Output Total 1000 / 3600 1200 / 4800 4000 / 4000 Balance -50 / -1883.225 -1200 / -3083.225 -2755.000 / -2755.000 Physical Exam Narrative: EXAM NARRATIVE: GENERAL: The patient is alert but not answering the questions. She seems to be responding to nonl verbal cues HEENT: No significant pallor, icterus or lymphadenopathy.Oral cavity: There are no mucous membrane lesions. NECK: Trachea appears to be central. No masses noted. No JVD or thyromegaly appreciated. RESPIRATORY: The breath sounds are bilaterally with no rales or rhonchi. Intensity of the breath sounds are somewhat diminished in the bases. BREASTS: Deferred. HEART: The heart sounds are normal. No S3 or S4. Short systolic murmur at the base of the heart. No pericardial rub ABDOMEN: No vessel pulsations or distention. No tenderness. No organomegaly appreciated. Bowel sounds are normally heard. : Deferred. RECTAL: Deferred. LYMPHATIC: No lymphadenopathy noted in the neck or groin. EXTREMITIES: Trace edema with no cyanosis. Peripherals are palpable MUSCULOSKELETAL: No acute joint deformities or swelling SKIN: There are no significant rashes or ecchymosis NEUROPSYCHIATRIC: The patient is alert with no focal motor deficits. Urinary Catheter Management^: Gore: Cath Placed During This Visit: yes Reason for Continuing Indwelling Catheter: Accurate Measurement of Urinary Out put in Critically Ill Patients Urinary Catheter Date of Insertion: 10/23/20 Urinary Catheter Time of Insertion: 17:54 Data : 10/27/20 05:25 10/27/20 05:25 Micro: Microbiology 10/26/20 08:30 Gram Stain - Final Sputum - Endotracheal Tube Aspirate Sputum Culture - Preliminary 10/26/20 08:50 Blood Culture - Preliminary Blood NEGATIVE TO DATE 10/23/20 17:05 Gram Stain - Final Sputum - Endotracheal Tube Aspirate Sputum Culture - Final Staphylococcus aureus 10/26/20 08:44 Blood Culture - Preliminary Blood NEGATIVE TO DATE 10/23/20 17:00 Urine Culture - Final Urine Catheterized A&P Assessment and plan (1) Acute pulmonary edema: Status: Acute (2) COPD exacerbation: Status: Acute (3) Accelerated hypertension: Status: Acute (4) Carotid artery stenosis with cerebral infarction: Status: Acute (5) Elevated troponin: Status: Acute This patient is admitted to hospital with out of hospital cardiac arrest. She was in respiratory failure. She was intubated and currently is extubated. The exact etiology for the cardiac arrest is not clear at this point. Her LV ejection fraction was normal. It is possible that she may have had some form of cardiac arrhythmia. Possibility of coronary ischemia causing this cannot be excluded. Had a change in the mental status? Is a concern. Currently she is undergoing further evaluation for this. Her blood pressure is a stageII. We will optimize her antihypertensive medications. Consider cardiac catheterization on Thursday. We will continue on all current medications for the time being. The carotid duplex times revealed less than 50% stenosis bilaterally Hypokalemia need to be corrected. I may add hydralazine 25 mg p.o. 3 times daily to her current medications to better control blood pressure The primary attending is currently doing a work-up for her altered mental status. 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
[2020-10-27] MEDS: hyDRALAzine 25 mg Tablet PO ×2 (15:53→21:24)
[2020-10-27 17:23] LABS: Glucose Point of Care 172 mg/dL (70-110)
[2020-10-27] MEDS: potassium chloride ER 20 mEq Tablet 40 MEQ PO (17:26)
[2020-10-27 19:31] LABS: Partial Thromboplastin Time 48.6 SECONDS (23.9-36.7)
[2020-10-27] MEDS: heparin 5,000 unit/mL INJ 1 mL IV (19:52)
[2020-10-27] MEDS: heparin drip 25,000 UNIT/500 ML PREMIX 30 UNIT IV (20:41)
[2020-10-27] MEDS: bisacodyl 10 mg Supp PR (21:25)
[2020-10-28] VITALS (26 sets, daily range): BP systolic 119–169; BP diastolic 63–105; PULSE 61–95; RESP 7–22; TEMP 36.7–37.2; O2SAT 94–100
[2020-10-28 02:12] LABS: Partial Thromboplastin Time 62.5 SECONDS (23.9-36.7)
[2020-10-28] MEDS: promethazine 25 mg Supp PR (03:34)
[2020-10-28 04:37] LABS: Basophils # 0.1 10^3/uL (0.0-0.1); Basophils % 0.5 %; Eosinophils # 0.2 10^3/uL (0.0-0.8); Eosinophils % 0.7 %; Hematocrit 40.9 % (37.0-47.0); Lymphocytes # 2.3 10^3/uL (0.8-4.8); Lymphocytes % 10.5 %; Mean Corpuscular HGB Conc 31.8 g/dL (30.0-36.0); Mean Corpuscular Hemoglobin 29.6 pg (28.0-34.0); Mean Corpuscular Volume 93.2 fL (81-99); Mean Platelet Volume 10.4 fL (7.4-10.4); Monocytes % 4.7 %; Neutrophils # 18.03 10^3/uL (1.8-7.7); Nucleated Red Blood Cells % 0 %; Platelet Count 300 10^3/cmm (130-400); Red Blood Count 4.39 10^6/uL (4.1-5.3); Red Cell Distribution Width 13.5 % (12.1-15.1); White Blood Count 21.8 10^3/uL (4.0-10.0)
[2020-10-28 04:58] LABS: INR 1.16 (0.8-1.2)
[2020-10-28 05:13] LABS: NT Pro B Type Natriuretic Pept 182 pg/mL (0-125); Procalcitonin 0.08 ng/mL (0-0.5)
[2020-10-28 05:26] LABS: Alanine Aminotransferase 7 U/L (0-33); Albumin Level 3.9 g/dL (3.5-5.2); Alkaline Phosphatase 140 IU/L (35-105); Anion Gap 20.1 (5-19); Aspartate Amino Transferase 11 U/L (0-32); Blood Urea Nitrogen 22 mg/dL (8-23); C Reactive Protein 100.4 mg/L (0.0-4.9); Carbon Dioxide 31 mmol/L (22-29); Chloride 85 mmol/L (98-107); Globulin 4.3 g/dL (1.3-4.6); Glomerular Filtration Rate 72.9 mL/min (90-130); Glucose 162 mg/dL (65-115); Magnesium 1.8 mg/dL (1.7-2.3); Osmolality Calculated 283 mOsm/kg (285-295); Phosphorus 4.2 mg/dL (2.5-4.5); Potassium 3.1 mmol/L (3.5-5.1); Sodium 133 mmol/L (136-145); Total Bilirubin 0.9 mg/dL (0.15-1.2); Total Protein 8.2 g/dL (6.6-8.7)
[2020-10-28 08:00] LABS: Glucose Point of Care 178 mg/dL (70-110)
[2020-10-28] MEDS: FUROsemide 10 mg/mL SDV 4mL 40 MG IVP (08:09)
[2020-10-28] MEDS: ondansetron 2 mg/ML SDV 2 mL 4 MG IVP ×2 (08:10→20:08)
[2020-10-28] MEDS: lidocaine 1% 5 ML in potassium chloride premix 100 ML 25 ML IV (08:24)
[2020-10-28 08:53] LABS: Partial Thromboplastin Time 71.1 SECONDS (23.9-36.7)
--- NOTE | 2020-10-28 09:17 | P.PN_ITS ---
Subjective Subjective: Interval history: Patient says he is feeling better. She seems to be more alert and oriented today. Denies any chest pain. No shortness of breath. Blood pressure seems to be elevated to stage II. No specific complaints. She had some strokelike symptoms yesterday. A CT of the head was unremarkable. Medications: Reviewed: Yes Medication Review Details: Current Medications Acetaminophen (Acetaminophen 325 Mg Tablet) 650 mg PO Q6H PRN PRN Reason: Mild/Mod Pain Or Temp >/= 101 Last Admin: 10/25/20 08:55 Dose: 650 mg Documented by: Albuterol/Ipratropium (Ipratropium-Albuterol 3 Ml Neb) 3 ml INHALATION Q4H.RESPIRATORY [facility] Last Admin: 10/28/20 09:00 Dose: Not Given Documented by: Amlodipine Besylate (Amlodipine 10 Mg Tablet) 10 mg PO DAILY [facility] Last Admin: 10/27/20 08:39 Dose: 10 mg Documented by: Aspirin (Aspirin 81 Mg Ec Tablet) 81 mg PO DAILY [facility] Last Admin: 10/27/20 08:39 Dose: 81 mg Documented by: Atorvastatin Calcium (Atorvastatin 40 Mg Tablet) 80 mg PO DAILY [facility] Last Admin: 10/27/20 08:40 Dose: 80 mg Documented by: Clopidogrel Bisulfate (Clopidogrel 75 Mg Tablet) 75 mg PO DAILY [facility] Last Admin: 10/27/20 08:40 Dose: 75 mg Documented by: Dextrose (Dextrose 50% Syringe 50 Ml) 25 ml IVP ONCE PRN; Protocol PRN Reason: hypoglycemia protocol Dextrose (Dextrose 50% Syringe 50 Ml) 50 ml IVP PRN PRN; Protocol PRN Reason: hypoglycemia protocol Furosemide (Furosemide 10 Mg/Ml Sdv 4ml) 40 mg IVP Q24H [facility] Last Admin: 10/28/20 08:09 Dose: 40 mg Documented by: Glucagon (Glucagon 1 Mg/Ml Inj 1 Ml) 1 mg IM ONCE PRN; Protocol PRN Reason: Adult Acute Hypoglycemia Prot. Heparin Sodium (Beef Lung) (Heparin 5,000 Unit/Ml Inj 1 Ml) 0 unit IV PRN PRN; Protocol PRN Reason: Heparin weight-base protocol Last Admin: 10/27/20 19:52 Dose: 2,300 unit Documented by: Hydralazine HCl (Hydralazine 25 Mg Tablet) 25 mg PO TID [facility] Last Admin: 10/27/20 21:24 Dose: 25 mg Documented by: Imipenem/Cilastatin Sodium 500 (mg/ Sodium Chloride) 100 mls @ 200 mls/hr IV Q6H [facility]; Protocol Last Admin: 10/28/20 03:46 Dose: 200 mls/hr Documented by: Heparin Sodium/Sodium Chloride (Heparin Drip) 25,000 unit in 500 mls @ 0 mls/hr IV .Q0M [facility]; Protocol Last Admin: 10/27/20 20:41 Dose: 13.28 unit/kg/hr, 30 mls/hr Documented by: Dextrose (D5w) 500 mls @ 100 mls/hr IV ONCE PRN; Protocol PRN Reason: Adult Acute Hypoglycemia Prot Vancomycin/PEG/[place]/Lysine/Water (Vancocin) 1,250 mg in 250 mls @ 200 mls/hr IV Q12H [facility] Last Admin: 10/27/20 21:25 Dose: 200 mls/hr Documented by: Lidocaine HCl 5 ml/ Potassium (Chloride) 105 mls @ 25 mls/hr IV ONCE ONE Stop: 10/28/20 12:06 Last Admin: 10/28/20 08:24 Dose: 25 mls/hr Documented by: Insulin Aspart (Insulin Aspart 100 Unit/1 Ml) 0 unit SUBCUT TIDWM [facility]; Protocol Last Admin: 10/28/20 08:07 Dose: 2 unit Documented by: Isosorbide Mononitrate (Isosorbide Mononitrate Er 30 Mg Tablet) 30 mg PO DAILY [facility] Last Admin: 10/27/20 08:40 Dose: 30 mg Documented by: Lisinopril (Lisinopril 20 Mg Tablet) 20 mg PO BID [facility] Last Admin: 10/27/20 17:26 Dose: 20 mg Documented by: Metoprolol Tartrate (Metoprolol Tartrate 25 Mg Tablet) 25 mg PO BID@0900,2100 [facility] Last Admin: 10/27/20 21:24 Dose: 25 mg Documented by: Ondansetron HCl (Ondansetron 2 Mg/Ml Sdv 2 Ml) 4 mg IVP Q6H PRN PRN Reason: vomiting, or N/V if npo Last Admin: 10/28/20 08:10 Dose: 4 mg Documented by: Pantoprazole Sodium (Pantoprazole Dr 40 Mg Tablet) 40 mg PO BID [facility] Last Admin: 10/27/20 17:26 Dose: 40 mg Documented by: Senna/Docusate Sodium (Sennosides-Docusate Tablet) 2 tab PO BID [facility] Spironolactone (Spironolactone 25 Mg Tablet) 25 mg PO DAILY [facility] Vitals/I&O/Wt Last Vital Signs Temp 98.6 F 10/28/20 04:00 Pulse 86 10/28/20 09:00 Resp 16 10/28/20 09:00 BP 165/89 10/28/20 07:00 Pulse Ox 96 10/28/20 09:00 10/27/20 10/28/20 10/28/20 22:59 06:59 14:59 Intake Total 1070 / 2315.000 Output Total 1500 / 5500 Balance -430 / -3185.000 Physical Exam Narrative: EXAM NARRATIVE: GENERAL: The patient is alert but not answering the questions. She seems to be responding to nonl verbal cues HEENT: No significant pallor, icterus or lymphadenopathy.Oral cavity: There are no mucous membrane lesions. NECK: Trachea appears to be central. No masses noted. No JVD or thyromegaly appreciated. RESPIRATORY: The breath sounds are bilaterally with no rales or rhonchi. Intensity of the breath sounds are somewhat diminished in the bases. BREASTS: Deferred. HEART: The heart sounds are normal. No S3 or S4. Short systolic murmur at the base of the heart. No pericardial rub ABDOMEN: No vessel pulsations or distention. No tenderness. No organomegaly appreciated. Bowel sounds are normally heard. : Deferred. RECTAL: Deferred. LYMPHATIC: No lymphadenopathy noted in the neck or groin. EXTREMITIES: Trace edema with no cyanosis. Peripherals are palpable MUSCULOSKELETAL: No acute joint deformities or swelling SKIN: There are no significant rashes or ecchymosis NEUROPSYCHIATRIC: The patient is alert with no focal motor deficits. Urinary Catheter Management^: Gore: Cath Placed During This Visit: yes Reason for Continuing Indwelling Catheter: Accurate Measurement of Urinary Output in Critically Ill Patients Urinary Catheter Date of Insertion: 10/23/20 Urinary Catheter Time of Insertion: 17:54 Data : 10/29/20 03:51 10/29/20 03:51 Other Labs: Laboratory Last Values WBC 21.8 10^3/uL (4.0-10.0) H 10/28/20 03:48 RBC 4.39 10^6/uL (4.1-5.3) 10/28/20 03:48 Hgb 13.0 g/dL (11.5-15.3) 10/28/20 03:48 Hct 40.9 % (37.0-47.0) 10/28/20 03:48 MCV 93.2 fL (81-99) 10/28/20 03:48 MCH 29.6 pg (28.0-34.0) 10/28/20 03:48 MCHC 31.8 g/dL (30.0-36.0) 10/28/20 03:48 RDW 13.5 % (12.1-15.1) 10/28/20 03:48 Plt Count 300 10^3/cmm (130-400) 10/28/20 03:48 MPV 10.4 fL (7.4-10.4) 10/28/20 03:48 Neut % (Auto) 83.0 % 10/28/20 03:48 Lymph % (Auto) 10.5 % 10/28/20 03:48 [place] % (Auto) 4.7 % 10/28/20 03:48 Eos % (Auto) 0.7 % 10/28/20 03:48 Baso % (Auto) 0.5 % 10/28/20 03:48 Neut # (Auto) 18.03 10^3/uL (1.8-7.7) H 10/28/20 03:48 Lymph # (Auto) 2.3 10^3/uL (0.8-4.8) 10/28/20 03:48 [place] # (Auto) 1.0 10^3/uL (0.2-0.9) H 10/28/20 03:48 Eos # (Auto) 0.2 10^3/uL (0.0-0.8) 10/28/20 03:48 Baso # (Auto) 0.1 10^3/uL (0.0-0.1) 10/28/20 03:48 Nucleated RBC % (auto) 0 % 10/28/20 03:48 Nucleated RBCs # 0.0 /100WBC 10/28/20 03:48 PT 15.20 SECONDS (12.1-14.9) H 10/28/20 03:48 INR 1.16 (0.8-1.2) 10/28/20 03:48 APTT 71.1 SECONDS (23.9-36.7) H 10/28/20 06:37 D-Dimer 1.37 ug/mIFEU (0-0.59) H 10/26/20 04:26 Specimen Type Arterial 10/26/20 05:20 Sample Site Radial, right 10/26/20 05:20 ABG pH 7.50 (7.35-7.45) H 10/26/20 05:20 ABG pCO2 46.9 mmHg (35-45) H 10/26/20 05:20 ABG pO2 55.1 mmHg (80.0-100.0) L 10/26/20 05:20 ABG HCO3 36.1 mmol/L (22-26) H 10/26/20 05:20 ABG O2 Saturation 96.3 10/23/20 16:57 ABG Base Excess 11.3 mmol/L (-2.0-2.0) H 10/26/20 05:20 Abhi Test Pos 10/26/20 05:20 A-a O2 Gradient 70.8 mmHg (5-10) H 10/23/20 16:57 Hematocrit 39.0 % (37-47) 10/26/20 05:20 Hgb O2 Saturation 94.6 % (95-100) L 10/23/20 16:57 Carboxyhemoglobin 1.0 %THgb (0.4-20.1) 10/23/20 16:57 Methemoglobin 0.8 % (0.4-1.5) 10/23/20 16:57 Total Hemoglobin 15.7 g/dL (12-16) 10/23/20 16:57 Sodium 142.0 mmol/L (131-143) 10/23/20 16:57 Potassium 3.9 mmol/L (3.5-5.0) 10/23/20 16:57 Glucose 253.0 mg/dL (70-115) H 10/23/20 16:57 Ionized Calcium 1.2 mmol/L (1.1-1.4) 10/23/20 16:57 O2 Delivery Device Vent 10/26/20 05:20 Mechanical Rate 14.0 10/24/20 05:50 FiO2 35.0 % 10/26/20 05:20 Tidal Volume 0.40 10/26/20 05:20 PEEP 6.0 cmH20 10/26/20 05:20 Automatic Grinder Operator ID Anupam 10/26/20 05:20 Sodium 133 mmol/L (136-145) L 10/28/20 03:48 Potassium 3.1 mmol/L (3.5-5.1) L 10/28/20 03:48 Chloride 85 mmol/L (98-107) L 10/28/20 03:48 Carbon Dioxide 31 mmol/L (22-29) H 10/28/20 03:48 Anion Gap 20.1 (5-19) H 10/28/20 03:48 BUN 22 mg/dL (8-23) 10/28/20 03:48 Creatinine 0.8 mg/dL (0.5-0.9) 10/28/20 03:48 GFR Calculation 72.9 mL/min (90-130) L 10/28/20 03:48 Glucose 162 mg/dL (65-115) H 10/28/20 03:48 POC Glucose 178 mg/dL (70-110) H 10/28/20 07:56 Estimat Average Glucose 108 10/24/20 05:23 Hemoglobin A1c 5.4 % (4.0-6.0) 10/24/20 05:23 Calculated Osmolality 283 mOsm/kg (285-295) L 10/28/20 03:48 Lactate 1.4 mmol/L (0.5-2.2) 10/26/20 04:26 Calcium 10.0 mg/dL (8.5-10.5) 10/28/20 03:48 Phosphorus 4.2 mg/dL (2.5-4.5) 10/28/20 03:48 Magnesium 1.8 mg/dL (1.7-2.3) 10/28/20 03:48 Total Bilirubin 0.9 mg/dL (0.15-1.2) 10/28/20 03:48 AST 11 U/L (0-32) 10/28/20 03:48 ALT 7 U/L (0-33) 10/28/20 03:48 Alkaline Phosphatase 140 IU/L (35-105) H 10/28/20 03:48 Creatine Kinase 37 U/L (26-192) 10/26/20 04:26 Troponin T Baseline 18 ng/L (0-10) H 10/23/20 17:05 Troponin T 120 Minute 68.29 ng/L (0-10) H 10/23/20 18:52 Delta Troponin T 50.29 ABS# (0-10) H* 10/23/20 18:52 Troponin T Hi Sens 6Hr 94.69 ng/L (0-10) H 10/23/20 22:51 Troponin T Hi Sens 6Hr Delta 76.69 ng/L (0-12) H* 10/23/20 22:51 C-Reactive Protein 100.4 mg/L (0.0-4.9) H 10/28/20 03:48 NT-Pro-B Natriuret Pep 182 pg/mL (0-125) H 10/28/20 03:48 Total Protein 8.2 g/dL (6.6-8.7) 10/28/20 03:48 Albumin 3.9 g/dL (3.5-5.2) 10/28/20 03:48 Globulin 4.3 g/dL (1.3-4.6) 10/28/20 03:48 Triglycerides 172 mg/dL (0-150) H 10/24/20 05:23 Cholesterol 138 mg/dL (0-200) 10/24/20 05:23 LDL Cholesterol, Calc 71 mg/dL (50-129) 10/24/20 05:23 HDL Cholesterol 33 mg/dL (60-100) L 10/24/20 05:23 LDL/HDL Ratio 2.15 RATIO (0.00-3.22) 10/24/20 05:23 Cholesterol/HDL Ratio 4.18 mg/dL (0.0-4.40) 10/24/20 05:23 Procalcitonin 0.08 ng/mL (0-0.5) 10/28/20 03:48 TSH 1.07 uIU/mL (0.27-4.20) 10/24/20 05:23 Vancomycin Trough 12.6 ug/mL (10-15) 10/27/20 08:50 SARS-CoV-2 Ag (Rapid) Negative (Negative) 10/23/20 18:00 Micro: Microbiology 10/26/20 13:30 Urine Culture - Final Urine Catheterized 10/26/20 08:30 Gram Stain - Final Sputum - Endotracheal Tube Aspirate Sputum Culture - Preliminary 10/26/20 08:50 Blood Culture - Preliminary Blood NEGATIVE TO DATE 10/23/20 17:05 Gram Stain - Final Sputum - Endotracheal Tube Aspirate Sputum Culture - Final Staphylococcus aureus 10/26/20 08:44 Blood Culture - Preliminary Blood NEGATIVE TO DATE A&P Assessment and plan (1) NSTEMI (non-ST elevated myocardial infarction): The patient has no chest pain. The elevated troponin T is suggestive of myocardial injury. The EKG is unremarkable. She is on Plavix and heparin. She requires a cardiac catheterization. We will be reevaluating her status tomorrow and then decide on the timing of the procedure. Status: Acute (2) Acute respiratory failure: Respiratory status is stable now. The oxygen saturations are 96% on 3 L of oxygen by nasal cannula. Clinically seems to be stable. Status: Acute Qualifiers: Respiratory failure complication: unspecified whether with hypoxia or hypercapnia Qualified Code(s): J96.00 - Acute respiratory failure, unspecified whether with hypoxia or hypercapnia (3) Accelerated hypertension: The blood pressure is currently of stage II. We will continue to optimize the antihypertensive medications. Status: Acute (4) Insulin dependent type 2 diabetes mellitus: Management as per the primary. Status: Chronic (5) Hyperlipidemia: Continue on the current medications. Status: Chronic Qualifiers: Hyperlipidemia type: mixed hyperlipidemia Qualified Code(s): E78.2 - Mixed hyperlipidemia (6) Pulmonary edema: Clinically she is compensated. We will continue on the current medications. Status: Acute Qualifiers: Chronicity: acute Qualified Code(s): J81.0 - Acute pulmonary edema Additional A&P Information Other problems are Elevated white cell count, etiology?. Patient requires a cardiac catheterization, to further evaluate her coronary status and decide on further management. We will do a repeat his CBC and BMP tomorrow. Based on the results, further management decisions will be made Attestations Medical Necessity Statement*: Patient requires continued hospital stay for close monitoring and further management Coding Level of Care Code Acute [employer] Tr[employer] Machine Operator for [facility] Fwd Diagnoses NSTEMI (non-ST elevated myocardial infarction) I21.4 Acute respiratory failure J96.00 Respiratory failure complication: unspecified whether with hypoxia or hypercapnia Accelerated hypertension I10 Insulin dependent type 2 diabetes mellitus E11.9; Z79.4 Hyperlipidemia E78.2 Hyperlipidemia type: mixed hyperlipidemia Pulmonary edema J81.0 Chronicity: acute
[2020-10-28] MEDS: pantoprazole DR 40 mg Tablet PO ×2 (09:32→17:15)
[2020-10-28] MEDS: lisinopril 20 mg Tablet PO ×2 (09:32→17:15)
[2020-10-28] MEDS: isosorbide mononitrate ER 30 mg Tablet PO (09:33)
[2020-10-28] MEDS: clopidogrel 75 mg Tablet PO (09:33)
[2020-10-28] MEDS: metoprolol tartrate 25 mg Tablet PO ×2 (09:33→20:01)
[2020-10-28] MEDS: atorvastatin 40 mg Tablet 80 MG PO (09:33)
[2020-10-28] MEDS: hyDRALAzine 25 mg Tablet PO ×3 (09:33→20:01)
[2020-10-28] MEDS: spironolactone 25 mg Tablet PO (09:33)
[2020-10-28] MEDS: amlodipine 10 mg Tablet PO (09:33)
[2020-10-28] MEDS: aspirin 81 mg EC Tablet PO (09:33)
[2020-10-28] MEDS: vancomycin 1,250 MG/250 ML PIGGYBACK 200 MG IV ×2 (09:48→20:38)
--- NOTE | 2020-10-28 10:53 | PM.PN ---
Subjective Subjective: Interval history: This morning patient was examined, her brought in her hearing aids, she can hear much better, she tells me that she is feeling okay, denies any chest pain, denies any palpitations, denies any shortness of breath, no headache, no blurry vision, her slurring of her speech is very minimal, I cannot detect a facial droop, also her left-sided weakness are very minimal, she worked with physical therapy yesterday, got up to the side of the bed, she is not had a bowel movement, no fevers, no significant arrhythmia events, has over 5 L urine output yesterday Medications: Reviewed: Yes Medication Review Details: Current Medications Acetaminophen (Acetaminophen 325 Mg Tablet) 650 mg PO Q6H PRN PRN Reason: Mild/Mod Pain Or Temp >/= 101 Last Admin: 10/25/20 08:55 Dose: 650 mg Documented by: Albuterol/Ipratropium (Ipratropium-Albuterol 3 Ml Neb) 3 ml INHALATION Q4H.RESPIRATORY [facility] Last Admin: 10/28/20 09:00 Dose: Not Given Documented by: Amlodipine Besylate (Amlodipine 10 Mg Tablet) 10 mg PO DAILY [facility] Last Admin: 10/27/20 08:39 Dose: 10 mg Documented by: Aspirin (Aspirin 81 Mg Ec Tablet) 81 mg PO DAILY [facility] Last Admin: 10/27/20 08:39 Dose: 81 mg Documented by: Atorvastatin Calcium (Atorvastatin 40 Mg Tablet) 80 mg PO DAILY [facility] Last Admin: 10/27/20 08:40 Dose: 80 mg Documented by: Clopidogrel Bisulfate (Clopidogrel 75 Mg Tablet) 75 mg PO DAILY [facility] Last Admin: 10/27/20 08:40 Dose: 75 mg Documented by: Dextrose (Dextrose 50% Syringe 50 Ml) 25 ml IVP ONCE PRN; Protocol PRN Reason: hypoglycemia protocol Dextrose (Dextrose 50% Syringe 50 Ml) 50 ml IVP PRN PRN; Protocol PRN Reason: hypoglycemia protocol Furosemide (Furosemide 10 Mg/Ml Sdv 4ml) 40 mg IVP Q24H [facility] Last Admin: 10/28/20 08:09 Dose: 40 mg Documented by: Glucagon (Glucagon 1 Mg/Ml Inj 1 Ml) 1 mg IM ONCE PRN; Protocol PRN Reason: Adult Acute Hypoglycemia Prot. Heparin Sodium (Beef Lung) (Heparin 5,000 Unit/Ml Inj 1 Ml) 0 unit IV PRN PRN; Protocol PRN Reason: Heparin weight-base protocol Last Admin: 10/27/20 19:52 Dose: 2,300 unit Documented by: Hydralazine HCl (Hydralazine 25 Mg Tablet) 25 mg PO TID [facility] Last Admin: 10/27/20 21:24 Dose: 25 mg Documented by: Imipenem/Cilastatin Sodium 500 (mg/ Sodium Chloride) 100 mls @ 200 mls/hr IV Q6H [facility]; Protocol Last Admin: 10/28/20 03:46 Dose: 200 mls/hr Documented by: Heparin Sodium/Sodium Chloride (Heparin Drip) 25,000 unit in 500 mls @ 0 mls/hr IV .Q0M [facility]; Protocol Last Admin: 10/27/20 20:41 Dose: 13.28 unit/kg/hr, 30 mls/hr Documented by: Dextrose (D5w) 500 mls @ 100 mls/hr IV ONCE PRN; Protocol PRN Reason: Adult Acute Hypoglycemia Prot Vancomycin/PEG/NADA/Lysine/Water (Vancocin) 1,250 mg in 250 mls @ 200 mls/hr IV Q12H [facility] Last Admin: 10/27/20 21:25 Dose: 200 mls/hr Documented by: Lidocaine HCl 5 ml/ Potassium (Chloride) 105 mls @ 25 mls/hr IV ONCE ONE Stop: 10/28/20 12:06 Last Admin: 10/28/20 08:24 Dose: 25 mls/hr Documented by: Insulin Aspart (Insulin Aspart 100 Unit/1 Ml) 0 unit SUBCUT TIDWM [facility]; Protocol Last Admin: 10/28/20 08:07 Dose: 2 unit Documented by: Isosorbide Mononitrate (Isosorbide Mononitrate Er 30 Mg Tablet) 30 mg PO DAILY [facility] Last Admin: 10/27/20 08:40 Dose: 30 mg Documented by: Lisinopril (Lisinopril 20 Mg Tablet) 20 mg PO BID [facility] Last Admin: 10/27/20 17:26 Dose: 20 mg Documented by: Metoprolol Tartrate (Metoprolol Tartrate 25 Mg Tablet) 25 mg PO BID@0900,2100 [facility] Last Admin: 10/27/20 21:24 Dose: 25 mg Documented by: Ondansetron HCl (Ondansetron 2 Mg/Ml Sdv 2 Ml) 4 mg IVP Q6H PRN PRN Reason: vomiting, or N/V if npo Last Admin: 10/28/20 08:10 Dose: 4 mg Documented by: Pantoprazole Sodium (Pantoprazole Dr 40 Mg Tablet) 40 mg PO BID [facility] Last Admin: 10/27/20 17:26 Dose: 40 mg Documented by: Senna/Docusate Sodium (Sennosides-Docusate Tablet) 2 tab PO BID [facility] Spironolactone (Spironolactone 25 Mg Tablet) 25 mg PO DAILY [facility] Vitals/I&O/Wt Last Vital Signs Temp 98.1 F 10/28/20 08:00 Pulse 86 10/28/20 09:00 Resp 16 10/28/20 09:00 BP 154/80 10/28/20 08:00 Pulse Ox 96 10/28/20 09:00 10/27/20 10/28/20 10/28/20 22:59 06:59 14:59 Intake Total 1320 / 2565.000 120 / 120 Output Total 1500 / 5500 Balance -180 / -2935.000 120 / 120 Physical Exam Const: COMMON NORMALS: no acute distress, patient oriented x3 and alert ORIENTATION/CONSCIOUSNESS: Yes oriented to person, Yes oriented to place and Yes oriented to time HENMT: COMMON NORMALS: normocephalic HEAD & SCALP: normocephalic Neck/C-Spine: COMMON NORMALS: no JVD Resp: COMMON NORMALS: normal respiratory effort, No retractions, No use of accessory muscles and clear to auscultation bilaterally AUSCULTATION: clear to auscultation bilaterally Cardio: COMMON NORMALS: no JVD, regular rate, regular rhythm, S1 normal heart sound present and S2 normal heart sound present RATE: regular rate RHYTHM: regular rhythm HEART SOUNDS: S1 normal heart sound present and S2 normal heart sound present GI: COMMON NORMALS: Normal to inspection, nondistended, normoactive bowel sounds present, Soft to palpation, non-tender, No hepatosplenomegaly present, no masses and no bruits PALPATION: Yes Soft to palpation and Yes No hepatosplenomegaly present Extremity: COMMON NORMALS: capillary refill normal, no clubbing, cyanosis or edema, no calf tenderness and no pedal edema Neuro: COMMON NORMALS: patient oriented x3, moves all extremities, no focal motor deficits and no sensory deficits noted SENSORIUM/ORIENTATION: Yes alert, Yes oriented to person, Yes oriented to place and Yes oriented to time OTHER: Strength equal bilaterally upper and lower extremities Psych: COMMON NORMALS: mental status grossly normal Urinary Catheter Management^: Gore: Cath Placed During This Visit: yes Reason for Continuing Indwelling Catheter: Accurate Measurement of Urinary Output in Critically Ill Patients Urinary Catheter Date of Insertion: 10/23/20 Urinary Catheter Time of Insertion: 17:54 Data : 10/28/20 03:48 10/28/20 03:48 Micro: Microbiology 10/26/20 13:30 Urine Culture - Final Urine Catheterized 10/26/20 08:30 Gram Stain - Final Sputum - Endotracheal Tube Aspirate Sputum Culture - Preliminary 10/26/20 08:50 Blood Culture - Preliminary Blood NEGATIVE TO DATE 10/23/20 17:05 Gram Stain - Final Sputum - Endotracheal Tube Aspirate Sputum Culture - Final Staphylococcus aureus 10/26/20 08:44 Blood Culture - Preliminary Blood NEGATIVE TO DATE A&P Assessment and plan (1) CVA (cerebral vascular accident): -Head CT on admission did not show any acute stroke -CTA of the head and neck shows 50% stenosis bilateral internal and common carotid arteries -Her admission diagnosis, she did have headaches, altered mental status -She has been on aspirin, Plavix, statin, heparin since admission -This morning I can notice a bit of slurring and stuttering of her speech, slight left facial droop, left upper and left lower extremity strength is 4-5 compared to 5 out of 5 on the right, she does have some positive cerebellar signs, no gaze palsy, no paresthesias, some degree of receptive aphasia but she is hard of hearing, NIH stroke scale 4, last known normal was October 23, 2019 -Currently her slurring is quite minimal, no facial droop, no significant left-sided weakness that I could detect this morning -Repeat head CT does not show any acute stroke or intracranial bleed Plan: -Brain MRI has been scheduled for Thursday -PT OT, speech therapy -Continue aspirin, statin, Plavix -Neurochecks, aspiration precautions, NIH stroke scale Status: Acute (2) Cardiac arrest: Etiology concerning for cardiac etiology -She does have significant cardiovascular history, hypertension, hyperlipidemia, smoker, history of RCA occlusion with collaterals, EKG normal sinus rhythm, first troponin 18, 6-hour troponin 94, with a delta of 76, thus she has an NSTEMI as a possible etiology -In addition acute flash pulmonary edema with hypertensive urgency is also playing a role, I am not exactly sure if this is the etiology behind her cardiac arrest in her symptomatology before the events that transpired, chest x-ray shows pulmonary edema which is improving, CT angiogram of the chest showed no pulmonary emboli, tiny bilateral pleural effusions -Currently pulmonary edema has improved, patient is -10 L, chest x-ray shows improved pulmonary edema -Currently hypertensive, afebrile, no significant episode tachycardia, no significant telemetry events Plan: -Admit to intensive care unit -Successfully extubated 08/25/2021, to 3 L -Continues to have persistent leukocytosis, white blood cell count 21.8, neutrophils 18.03, afebrile, CRP 100.4, pro-Tino 0.08, afebrile, all initial cultures a repeat culture so far negative - Primaxin for aspiration pneumonia coverage, vancomycin added -heparin drip for NSTEMI, plans are to do a cardiac catheterization hopefully on Thursday -Follow telemetry monitoring, follow EKGs, -Currently on aspirin, Plavix, heparin as above -Cardiac echocardiogram shows an EF of 70%, no regional wall motion abnormalities, grade 1 or 4 diastolic dysfunction, cardiology has been consulted -Decrease Lasix to 40 mg IV daily, with potassium replacement, diuresed over 5 L yesterday -Potassium replacement -Neurochecks, aspiration precautions, monitor for seizures -Insulin sliding scale for type 2 diabetes -Heparin for DVT prophylaxis -Protonix for GI prophylaxis -Patient is a full code Status: Acute (3) Acute respiratory failure: Likely secondary acute flash pulmonary edema Status: Acute Qualifiers: Respiratory failure complication: unspecified whether with hypoxia or hypercapnia Qualified Code(s): J96.00 - Acute respiratory failure, unspecified whether with hypoxia or hypercapnia (4) Pulmonary edema: Status: Acute Qualifiers: Chronicity: acute Qualified Code(s): J81.0 - Acute pulmonary edema (5) Headache: Status: Acute Qualifiers: Headache chronicity pattern: unspecified pattern Headache type: unspecified Intractability: not intractable Qualified Code(s): R51.9 - Headache, unspecified (6) Hypertension: Status: Chronic (7) Patella fracture: Status: Acute (8) Recurrent urinary tract infection: Status: Acute (9) Insulin dependent type 2 diabetes mellitus: Status: Chronic (10) Hyperlipidemia: Status: Chronic Qualifiers: Hyperlipidemia type: mixed hyperlipidemia Qualified Code(s): E78.2 - Mixed hyperlipidemia (11) COPD (chronic obstructive pulmonary disease): Status: Chronic (12) History of colon cancer: Status: Chronic (13) Chronic pain: Status: Chronic (14) Internal carotid artery stenosis: Status: Chronic (15) NSTEMI (non-ST elevated myocardial infarction): Status: Acute (16) Aspiration pneumonia: -Has been on Primaxin since hospital admission, vancomycin was added due to fevers increasing leukocytosis -All cultures have been unremarkable -MRSA nares PCR, sputum cultures blood cultures, urine cultures repeated Status: Acute (17) Hypertensive urgency: -Continue metoprolol 25 mg twice daily -Norvasc 10 mg added -On Lasix 40 IV daily -On Imdur 30 mg daily -Lisinopril 20 mg twice daily -Spironolactone added Status: Acute Attestations Medical Necessity Statement*: Patient requires hospitalization for cardiac arrest,'s status post extubation, CVA, acute respiratory failure, proceeding to coronary angiogram tomorrow, ICU level of care time spent over 40 minutes Coding Level of Care Code Acute [employer] for [facility] Diagnoses CVA (cerebral vascular accident) I63.9 Cardiac arrest I46.9 Acute respiratory failure J96.00 Respiratory failure complication: unspecified whether with hypoxia or hypercapnia Pulmonary edema J81.0 Chronicity: acute Headache R51.9 Headache chronicity pattern: unspecified pattern Headache type: unspecified Intractability: not intractable Hypertension I10 Patella fracture S82.009A Recurrent urinary tract infection N39.0 Insulin dependent type 2 diabetes mellitus E11.9; Z79.4 Hyperlipidemia E78.2 Hyperlipidemia type: mixed hyperlipidemia COPD (chronic obstructive pulmonary disease) J44.9 History of colon cancer Z85.038 Chronic pain G89.29 Internal carotid artery stenosis I65.29 NSTEMI (non-ST elevated myocardial infarction) I21.4 Aspiration pneumonia J69.0 Hypertensive urgency I16.0
[2020-10-28] MEDS: polyethylene glycol 3350 Pkt 17 gm PO (11:38)
[2020-10-28] MEDS: docusate sodium 100 mg Capsule PO ×2 (11:38→17:15)
[2020-10-28 12:17] LABS: Glucose Point of Care 188 mg/dL (70-110)
[2020-10-28] MEDS: heparin drip 25,000 UNIT/500 ML PREMIX 30 UNIT IV (14:03)
[2020-10-28] MEDS: ipratropium-albuterol 3 mL Neb INHALATION (16:10)
[2020-10-28 16:48] LABS: Glucose Point of Care 138 mg/dL (70-110)
[2020-10-28 16:59] LABS: Partial Thromboplastin Time 62.3 SECONDS (23.9-36.7)
[2020-10-28] MEDS: sennosides-docusate Tablet 2 TAB PO (17:15)
--- NOTE | 2020-10-28 17:59 | PC.NURSE ---
pt had some nausea this am but resolved with zofran , appetite increased over the day. pt no longer complaining of any nausea. pt was up with PT to the side of the bed today. pt complains of no pain. pt alert and oriented.
[2020-10-28 23:27] LABS: Partial Thromboplastin Time 81.3 SECONDS (23.9-36.7)
[2020-10-29] VITALS (27 sets, daily range): BP systolic 115–154; BP diastolic 63–94; PULSE 52–90; RESP 13–24; TEMP 36.2–37.1; O2SAT 93–100
[2020-10-29 04:13] LABS: Basophils # 0.1 10^3/uL (0.0-0.1); Basophils % 0.6 %; Eosinophils # 0.3 10^3/uL (0.0-0.8); Eosinophils % 1.5 %; Hematocrit 40.5 % (37.0-47.0); Hemoglobin 13.2 g/dL (11.5-15.3); Lymphocytes # 2.9 10^3/uL (0.8-4.8); Lymphocytes % 16.8 %; Mean Corpuscular HGB Conc 32.6 g/dL (30.0-36.0); Mean Corpuscular Hemoglobin 29.9 pg (28.0-34.0); Mean Corpuscular Volume 91.8 fL (81-99); Mean Platelet Volume 10.2 fL (7.4-10.4); Monocytes # 1.1 10^3/uL (0.2-0.9); Monocytes % 6.4 %; Neutrophils # 12.77 10^3/uL (1.8-7.7); Neutrophils % 74.3 %; Nucleated Red Blood Cells % 0 %; Platelet Count 296 10^3/cmm (130-400); Red Blood Count 4.41 10^6/uL (4.1-5.3); Red Cell Distribution Width 13.3 % (12.1-15.1); White Blood Count 17.2 10^3/uL (4.0-10.0)
[2020-10-29 04:29] LABS: INR 1.05 (0.8-1.2)
[2020-10-29 04:45] LABS: NT Pro B Type Natriuretic Pept 91 pg/mL (0-125); Procalcitonin 0.09 ng/mL (0-0.5)
[2020-10-29 04:56] LABS: Alanine Aminotransferase 7 U/L (0-33); Albumin Level 3.7 g/dL (3.5-5.2); Alkaline Phosphatase 125 IU/L (35-105); Anion Gap 18.6 (5-19); Aspartate Amino Transferase 14 U/L (0-32); Blood Urea Nitrogen 23 mg/dL (8-23); C Reactive Protein 52.5 mg/L (0.0-4.9); Calcium 9.7 mg/dL (8.5-10.5); Carbon Dioxide 30 mmol/L (22-29); Chloride 92 mmol/L (98-107); Glomerular Filtration Rate 72.9 mL/min (90-130); Glucose 141 mg/dL (65-115); Magnesium 1.8 mg/dL (1.7-2.3); Osmolality Calculated 292 mOsm/kg (285-295); Phosphorus 4.1 mg/dL (2.5-4.5); Sodium 138 mmol/L (136-145); Total Bilirubin 0.8 mg/dL (0.15-1.2); Total Protein 7.7 g/dL (6.6-8.7)
[2020-10-29 05:08] LABS: Potassium 2.6 mmol/L (3.5-5.1)
--- NOTE | 2020-10-29 05:50 | PC.NURSE ---
0500 groins shaved prep bilateral tolerated well discussed need for heart cath pt consented to procedure
[2020-10-29] MEDS: lidocaine 1% 5 ML in potassium chloride premix 100 ML 25 ML IV (06:06)
--- NOTE | 2020-10-29 07:25 | PM.PN ---
Subjective Subjective: Interval history: Melissa reports she has a little nausea, and her abdomen hurts, and of in the center. She states this is just slight. She denies any chest pain or shortness of breath currently. Medications: Reviewed: Yes Vitals/I&O/Wt Last Vital Signs Temp 98.7 F 10/29/20 04:00 Pulse 73 10/29/20 05:00 Resp 22 H 10/29/20 05:00 BP 142/78 10/29/20 05:00 Pulse Ox 100 10/29/20 05:00 10/28/20 10/29/20 10/29/20 22:59 06:59 14:59 Intake Total 350 / 1320 260 / 1580 Output Total 850 / 1650 650 / 2300 Balance -500 / -330 -390 / -720 Physical Exam Narrative: EXAM NARRATIVE: General exam is no apparent distress Cardiovascular regular rate and rhythm, without murmur Lungs coarse at the bases Abdomen is soft with positive bowel sounds, slight epigastric tenderness Extremities no cyanosis clubbing or edema Neurologic: Hearing deficit noted but no obvious focal deficits. Urinary Catheter Management^: Gore: Cath Placed During This Visit: yes Reason for Continuing Indwelling Catheter: Accurate Measurement of Urinary Output in Critically Ill Patients Urinary Catheter Date of Insertion: 10/23/20 Urinary Catheter Time of Insertion: 17:54 Data : 10/29/20 03:51 10/29/20 03:51 Micro: Microbiology 10/23/20 19:12 Blood Culture - Final Blood NO GROWTH AFTER 5 DAYS 10/23/20 19:12 Blood Culture - Final Blood NO GROWTH AFTER 5 DAYS 10/26/20 08:30 Gram Stain - Final Sputum - Endotracheal Tube Aspirate Sputum Culture - Preliminary Yeast 10/26/20 13:30 Urine Culture - Final Urine Catheterized A&P Assessment and plan (1) Cardiac arrest: Etiology likely secondary to pulmonary edema. CTA demonstrated no pulmonary embolism Status: Acute (2) NSTEMI (non-ST elevated myocardial infarction): Cardiology following Continue Plavix, aspirin, beta-aster, IV diuretic Continue heparin drip Cardiology is considering angiogram Status: Acute (3) Aspiration pneumonia: Currently on vancomycin and Primaxin Status: Acute (4) Acute respiratory failure: Extubated on August 25 Status: Acute Qualifiers: Respiratory failure complication: unspecified whether with hypoxia or hypercapnia Qualified Code(s): J96.00 - Acute respiratory failure, unspecified whether with hypoxia or hypercapnia (5) Hypokalemia: IV potassium ordered this morning Arrange for p.o. potassium as well Status: Acute (6) CHF (congestive heart failure): Diastolic. Echocardiogram demonstrates preserved EF. Grade 1/4 diastolic dysfunction Status: Acute Additional A&P Information Concern of CVA on admission. CT scan negative. Carotid duplex no flow-limiting disease. MRI planned today. Nausea, abdominal discomfort. Continue Protonix. Gallbladder ultrasound pending. Depending upon results may wish further imaging of the abdomen Heparin will suffice for DVT prophylaxis Attestations Medical Necessity Statement*: Needs continued hospitalization for evaluation of cardiac arrest, antibiotics for aspiration pneumonitis Coding Level of Care Code Acute Manager Language for [facility] Diagnoses Cardiac arrest I46.9 NSTEMI (non-ST elevated myocardial infarction) I21.4 Aspiration pneumonia J69.0 Acute respiratory failure J96.00 Respiratory failure complication: unspecified whether with hypoxia or hypercapnia Hypokalemia E87.6 CHF (congestive heart failure) I50.9
[2020-10-29 07:32] LABS: Partial Thromboplastin Time 105.8 SECONDS (23.9-36.7)
--- NOTE | 2020-10-29 08:44 | MR_ITS ---
WS: [id number] MRI BRAIN WITHOUT CONTRAST HISTORY: Possible stroke. COMPARISON: CT head 10/27/2020 TECHNIQUE: Diffusion imaging, multiplanar T1, T2 and FLAIR imaging obtained. No evidence for acute infarct or hemorrhage. Venegas-white matter differentiation is normal. No remote or acute infarcts are volume loss. Very slight cerebral atrophy. There is extensive T2 and FLAIR signal hyperintensities throughout the white matter. Signal abnormalities in the subcortical and periventricular white matter distribution. No hemorrhage or mass effect. No inferior displacement of cerebellar tonsils. The sella turcica and pituitary gland are unremarkabl e. Posterior fossa is also unremarkable. Dural venous sinuses and cher-ae heights of [place] demonstrate no abnormality on this unenhanced studies. Paranasal sinuses: Clear. Mastoid air cells: Normal. Calvarium and scalp: Hyperostosis frontalis interna. Slightly enlarged LEFT cervical chain lymph node s. Largest lymph nodes measure up to 9.6 mm. MR/MR head wo con* [id number] IMPRESSION: 1. No evidence for an acute infarct. 2. There is significant chronic appearing white matter disease, more than expe cted for a patient of this age. Possible etiologies are chronic hypertension, m igraines, microvascular disease, smoking history and less likely demyelinating disease based upon the distribution.
[2020-10-29] MEDS: heparin drip 25,000 UNIT/500 ML PREMIX 30 UNIT IV (09:11)
[2020-10-29 09:22] LABS: Vancomycin Trough 24.8 ug/mL (10-15)
[2020-10-29 09:29] LABS: Glucose Point of Care 139 mg/dL (70-110)
--- NOTE | 2020-10-29 09:33 | PC.CHAP ---
Pastoral Care Encounter/Spiritual Assessment Type of Contact [] Declined cigar wrapper tender automatic visit [] Patient/Family/Request visit [] Outpatient visit [] Follow-up visit [] Physician referral [] Code/Alert [x] Routine visit [] Staff referral [] Actively dying [] Patient sleeping [] Family support [] [] Out of room [] Palliative care [] [] Receiving care in room [] Pre-surgical visit [] Trauma [] Long length of stay [x] ICU visit [] Other: Relational/Emotional Strength [] Patient feels connected with others/family/visitors/staff [] Distress [] Loneliness/isolation [] Abandonment Spirituality of Patient [] Person of Wendy [] Attends Moravian of their Wendy [] Believes in Prayer [] Reads Bible or Zoroastrianism materials [] There are Spiritual issues to be addressed Director Integrated Interventions [x] Prayer [] Active listening [] Non-anxious presence [] Spiritual/emotional support [] Crisis/trauma care [] Spiritual counseling [] Bereavement support [] Provided bereavement packet [] Provided Bible/devotional materials [] Provided toy/stuffed animal, coloring book to patient or family member [] Provided Communion [] Anointing/[place] [] Salvation [x] Completed spiritual assessment [] Other: Impact on Illness or Injury [] Angry [] Fearful [] Anxious [] Often cries [] Exhaustion [] Unable to work [] Unable to attend rastafari [] Unable to walk/stand [] Unable to read [] Unable to drive [] Unable to eat/drink [] Unable to sleep [] Unable to be with family [] Patient intubated [] Other: Summary Time spent with patient
[2020-10-29] MEDS: atorvastatin 40 mg Tablet 80 MG PO (10:01)
[2020-10-29] MEDS: aspirin 81 mg EC Tablet PO (10:01)
[2020-10-29] MEDS: sennosides-docusate Tablet 2 TAB PO ×2 (10:01→18:47)
[2020-10-29] MEDS: lisinopril 20 mg Tablet PO ×2 (10:01→18:47)
[2020-10-29] MEDS: isosorbide mononitrate ER 30 mg Tablet PO (10:02)
[2020-10-29] MEDS: pantoprazole DR 40 mg Tablet PO ×2 (10:02→18:47)
[2020-10-29] MEDS: amlodipine 10 mg Tablet PO (10:02)
[2020-10-29] MEDS: docusate sodium 100 mg Capsule PO ×2 (10:02→18:46)
[2020-10-29] MEDS: clopidogrel 75 mg Tablet PO (10:03)
[2020-10-29] MEDS: FUROsemide 10 mg/mL SDV 4mL 40 MG IVP (10:03)
[2020-10-29] MEDS: spironolactone 25 mg Tablet PO (10:03)
[2020-10-29] MEDS: hyDRALAzine 25 mg Tablet PO ×2 (10:06→20:45)
[2020-10-29] MEDS: potassium chloride ER 10 mEq Tablet 40 MEQ PO (10:06)
[2020-10-29] MEDS: metoprolol tartrate 25 mg Tablet PO ×2 (10:06→20:46)
--- NOTE | 2020-10-29 10:36 | P.PN_ITS ---
Subjective Subjective: Interval history: Patient is extubated. She appears confused however answers questions appropriately. Denies chest pain or shortness of breath. Scheduled to undergo MRI today to rule out stroke. Vitals/I&O/Wt Last Vital Signs Temp 98.7 F 10/29/20 04:00 Pulse 63 10/29/20 07:58 Resp 16 10/29/20 07:58 BP 142/78 10/29/20 05:00 Pulse Ox 99 10/29/20 07:58 10/28/20 10/29/20 10/29/20 22:59 06:59 14:59 Intake Total 350 / 1320 760 / 2080 Output Total 850 / 1650 650 / 2300 Balance -500 / -330 110 / -220 Physical Exam Narrative: EXAM NARRATIVE: GENERAL: The patient is alert. Appears confused. HEENT: No significant pallor, icterus or lymphadenopathy.Oral cavity: There are no mucous membrane lesions. NECK: Trachea appears to be central. No masses noted. No JVD or thyromegaly appreciated. RESPIRATORY: The breath sounds are bilaterally with no rales or rhonchi. Intensity of the breath sounds are somewhat diminished in the bases. BREASTS: Deferred. HEART: The heart sounds are normal. No S3 or S4. Short systolic murmur at the base of the heart. No pericardial rub ABDOMEN: No vessel pulsations or distention. Mild epigastric tenderness. No organomegaly appreciated. Bowel sounds are normally heard. : Deferred. RECTAL: Deferred. LYMPHATIC: No lymphadenopathy noted in the neck or groin. EXTREMITIES: Trace edema with no cyanosis. Peripherals are palpable MUSCULOSKELETAL: No acute joint deformities or swelling SKIN: There are no significant rashes or ecchymosis NEUROPSYCHIATRIC: The patient is alert with no focal motor deficits. Urinary Catheter Management^: Gore: Cath Placed During This Visit: yes Reason for Continuing Indwelling Catheter: Accurate Measurement of Urinary Output in Critically Ill Patients Urinary Catheter Date of Insertion: 10/23/20 Urinary Catheter Time of Insertion: 17:54 Data : 10/30/20 04:30 10/30/20 04:30 Micro: Microbiology 10/23/20 19:12 Blood Culture - Final Blood NO GROWTH AFTER 5 DAYS 10/23/20 19:12 Blood Culture - Final Blood NO GROWTH AFTER 5 DAYS 10/26/20 08:30 Gram Stain - Final Sputum - Endotracheal Tube Aspirate Sputum Culture - Preliminary Yeast 10/26/20 13:30 Urine Culture - Final Urine Catheterized A&P Assessment and plan (1) Pulmonary edema: Status: Acute Qualifiers: Chronicity: acute Qualified Code(s): J81.0 - Acute pulmonary edema (2) Acute respiratory failure: Status: Acute Qualifiers: Respiratory failure complication: unspecified whether with hypoxia or hypercapnia Qualified Code(s): J96.00 - Acute respiratory failure, unspecified whether with hypoxia or hypercapnia (3) Cardiac arrest: Status: Acute (4) 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 No PE on CTA Troponin elevation in setting of CPR. Her echocardiogram shows normal LV systolic function with no regional wall motion abnormalities. EKG does not show ST elevations or significant ischemic changes. Continue heparin drip. Currently no evidence of ischemia or arrhythmias on telemetry. Plan for MRI head today to rule out stroke. If there is no stroke, we will plan on proceeding with coronary angiography . Her WBC count is still elevated. On antibiotics. Continue aspirin and statin Thank you for involving us with care of this patient. We will continue to follow. Please call with questions. Attestations Medical Necessity Statement*: Care expected to cross 2 midnights. Coding Level of Care Code Acute Care Process Manager for [facility] Diagnoses Pulmonary edema J81.0 Chronicity: acute Acute respiratory failure J96.00 Respiratory failure complication: unspecified whether with hypoxia or hypercapnia Cardiac arrest I46.9 Insulin dependent type 2 diabetes mellitus E11.9; Z79.4 Hyperlipidemia E78.2 Hyperlipidemia type: mixed hyperlipidemia COPD (chronic obstructive pulmonary disease) J44.9 Hypertension I10 NSTEMI (non-ST elevated myocardial infarction) I21.4
[2020-10-29] MEDS: vancomycin 1,250 MG/250 ML PIGGYBACK 200 MG IV (11:11)
[2020-10-29] MEDS: potassium chloride premix 100 ML 25 MEQ (11:12)
[2020-10-29 12:19] LABS: Glucose Point of Care 146 mg/dL (70-110)
[2020-10-29 12:40] LABS: Partial Thromboplastin Time 62.8 SECONDS (23.9-36.7)
--- NOTE | 2020-10-29 12:54 | US_ITS ---
WS: [id number] RIGHT UPPER QUADRANT ULTRASOUND HISTORY: ruq pain PLEASE DO 1ST EXAM IN AM. COMPARISON: None available. Liver: 22.2 cm in length. Marked enlargement of the liver. Coarse echotexture. No mass or bile duct d ilatation. Gallbladder: Prior cholecystectomy. CBD: 0.7 cm Pancreas: Normal size and echogenicity. Right kidney: 11.1 cm in length. Normal size kidney. There are multiple hyperechoic densities through out the kidney consistent with small nonobstructing calcifications. Aorta and IVC: Unremarkable abdominal aorta and IVC. No ascites. US/US gall bladder [id number] IMPRESSION: 1. Marked hepatomegaly and hepatic steatosis. 2. Prior cholecystectomy. 3. RIGHT renal calcifications without obstruction.
--- NOTE | 2020-10-29 13:20 | PC.OT ---
OT note: Pt's potassium below 3.2. Will hold at this time.
[2020-10-29] MEDS: LORazepam 2 mg/mL INJ 1 mL IVP (13:39)
[2020-10-29] MEDS: ondansetron 2 mg/ML SDV 2 mL 4 MG IVP (13:46)
[2020-10-29 16:31] LABS: Potassium 3.5 mmol/L (3.5-5.1)
[2020-10-29 17:47] LABS: Glucose Point of Care 140 mg/dL (70-110)
[2020-10-29] MEDS: ipratropium-albuterol 3 mL Neb INHALATION ×2 (19:44→23:57)
--- NOTE | 2020-10-29 20:43 | PC.NURSE ---
Report given to RACHNA Foote in CSU, pt to be transferred with all belongings to [id number]
--- NOTE | 2020-10-29 21:21 | PC.NURSE ---
Patient transferred with all belongings and on monitor
--- NOTE | 2020-10-29 21:26 | PC.NURSE ---
Lab contacted about PTT that was drawn at 2012 still pending. Lab states maintenance was being done on analyzer and that results should be back in 20-30 minutes.
[2020-10-29 21:35] LABS: Partial Thromboplastin Time 44.6 SECONDS (23.9-36.7)
[2020-10-29] MEDS: heparin 5,000 unit/mL INJ 1 mL IV (22:03)
--- NOTE | 2020-10-29 22:17 | PC.NURSE ---
It appears that the Heparin drip has been charted to be running at 30ml/hr since 10/28 at 1700 however per the heparin documentation/protocol sheet the heparin drip has been decreased on 10/28 @ 2350 down to 28ml/hr and then decreased again on 10/29 @ 0600 to 22ml/hr.
[2020-10-30] VITALS (25 sets, daily range): BP systolic 120–149; BP diastolic 67–93; PULSE 61–104; RESP 16–24; TEMP 36.4–37.1; O2SAT 90–99
[2020-10-30] MEDS: ipratropium-albuterol 3 mL Neb INHALATION ×7 (04:04→23:43)
[2020-10-30 04:44] LABS: Basophils # 0.2 10^3/uL (0.0-0.1); Basophils % 0.7 %; Eosinophils # 0.3 10^3/uL (0.0-0.8); Eosinophils % 1.5 %; Hemoglobin 12.7 g/dL (11.5-15.3); Lymphocytes # 3.3 10^3/uL (0.8-4.8); Lymphocytes % 15.8 %; Mean Corpuscular HGB Conc 32.6 g/dL (30.0-36.0); Mean Corpuscular Hemoglobin 30.1 pg (28.0-34.0); Mean Corpuscular Volume 92.4 fL (81-99); Monocytes # 1.2 10^3/uL (0.2-0.9); Neutrophils # 15.52 10^3/uL (1.8-7.7); Neutrophils % 75.3 %; Nucleated Red Blood Cells % 0 %; Platelet Count 308 10^3/cmm (130-400); Red Blood Count 4.22 10^6/uL (4.1-5.3); Red Cell Distribution Width 13.2 % (12.1-15.1); White Blood Count 20.6 10^3/uL (4.0-10.0)
[2020-10-30 04:57] LABS: Alanine Aminotransferase 7 U/L (0-33); Albumin Level 3.7 g/dL (3.5-5.2); Alkaline Phosphatase 120 IU/L (35-105); Aspartate Amino Transferase 17 U/L (0-32); Blood Urea Nitrogen 21 mg/dL (8-23); Calcium 9.7 mg/dL (8.5-10.5); Carbon Dioxide 26 mmol/L (22-29); Chloride 95 mmol/L (98-107); Globulin 3.7 g/dL (1.3-4.6); Glomerular Filtration Rate 85.1 mL/min (90-130); Glucose 130 mg/dL (65-115); Magnesium 1.8 mg/dL (1.7-2.3); Osmolality Calculated 283 mOsm/kg (285-295); Partial Thromboplastin Time 66.3 SECONDS (23.9-36.7); Sodium 134 mmol/L (136-145); Total Bilirubin 0.6 mg/dL (0.15-1.2); Total Protein 7.4 g/dL (6.6-8.7)
[2020-10-30] MEDS: vancomycin 1,250 MG/250 ML PIGGYBACK 200 MG IV ×2 (05:11→22:20)
--- NOTE | 2020-10-30 05:26 | PC.NURSE ---
Spoke with Dr. Arnett hospitalist director of education for this patient regarding the patient's frequent liquid bowel movements. The patient has had at least 8-9 liquid bowel movements this shift... the last several have appears suspicious for some possible gi bleeding. At this time orders were received for an occult blood and C-diff PCR test.
[2020-10-30 06:40] LABS: Glucose Point of Care 113 mg/dL (70-110)
--- NOTE | 2020-10-30 06:40 | PC.NURSE ---
spoke with regarding this patient's potential lower GI bleed.. heparin drip held pending hemocult results.
--- NOTE | 2020-10-30 07:48 | CT_ITS ---
WS: [id number] CT ABDOMEN AND PELVIS WITH CONTRAST HISTORY: elevated WBC count, melena TECHNIQUE: Imaging performed of the abdomen and pelvis with IV contrast. Single phase imaging of the abdomen. Coronal and sagittal reformats are submitted. All CT scans at [facility] use at least one of these dose optimization techniques: automated exposure control; mA and/or kV adjustment per patient size (includes targeted exams where dose is matched to clinical indication); or iterativ e reconstruction. IV CONTRAST: Omnipaque 300; 95 mL IV. Oral contrast: No DLP: 1653.57 mGy.cm COMPARISON: 08/09/2020 Lower thorax: Mild tree-in-bud airspace disease at the lung bases. Heart is normal size. No hiatal he rnia. Liver/biliary system: Mild hepatic steatosis. No bile duct dilatation or mass. Gallbladder: Status post cholecystectomy. Pancreas: Calcification of the pancreatic head. No bile duct dilatation. Spleen: Normal. Adrenal glands: Normal. Right kidney: Normal size with no obstruction. Numerous large calcifications in the pelvis. There is no hydronephrosis. Largest calcification in the upper pole measures 15 mm diameter. Left kidney: Very slight perinephric stranding. No obstruction. Numerous nonobstructing calcification s. Aorta: Moderate atherosclerosis with no aneurysm. There is extensive calcification. Moderate narrowin g of the proximal SMA. Lymphadenopathy: None. Free fluid: None. GI tract: No obstruction. There is a suture line in the distal sigmoid with no abnormality noted. The appendix is not identified and may been surgically removed. Abdominal wall: Unremarkable abdominal wall. No hernia. Pelvis: Gore catheter present in a nondistended urinary bladder. Small amount of air in the urinary bladder is probably from recent catheterization. There is no free fluid. Atrophic uterus. No mass. Bones: Degenerative changes within the lumbar spine. No fractures or bone destruction. Moderate centr al canal and foraminal stenosis at L4-5 and L5-S1. CT/CT abdomen pelvis w con* [id number] IMPRESSION: 1. No acute inflammatory process or abscess within the abdomen or pelvis. 2. Bilateral renal calcifications without obstruction. 3. Gore catheter present in a nondistended bladder. 4. Status post cholecystectomy. No bile duct dilatation. 5. Slight perinephric stranding around the LEFT kidney which can indicate an a cute pyelonephritis. 6. Very mild tree-in-bud airspace disease at the lung bases is typically seen with endobronchial inflammatory lung disease.
[2020-10-30] MEDS: lidocaine 1% 5 ML in potassium chloride premix 100 ML 25 ML IV ×2 (09:07→14:43)
[2020-10-30] MEDS: atorvastatin 40 mg Tablet 80 MG PO (09:08)
[2020-10-30] MEDS: lisinopril 20 mg Tablet PO ×2 (09:08→17:47)
[2020-10-30] MEDS: metoprolol tartrate 25 mg Tablet PO ×2 (09:08→20:23)
[2020-10-30] MEDS: spironolactone 25 mg Tablet PO (09:08)
[2020-10-30] MEDS: amlodipine 10 mg Tablet PO (09:08)
[2020-10-30] MEDS: isosorbide mononitrate ER 30 mg Tablet PO (09:09)
[2020-10-30] MEDS: pantoprazole DR 40 mg Tablet PO (09:09)
[2020-10-30] MEDS: hyDRALAzine 25 mg Tablet PO ×3 (09:09→20:23)
[2020-10-30] MEDS: clopidogrel 75 mg Tablet PO (09:09)
[2020-10-30] MEDS: iohexol 300 mg/mL 100 mL Btl IV (09:47)
[2020-10-30] MEDS: famotidine 20 mg/2 mL INJ IVP (10:09)
[2020-10-30] MEDS: diphenhydrAMINE 50 mg/mL SDV 1mL IVP (10:09)
[2020-10-30] MEDS: pantoprazole 40 mg SDV IVP ×2 (10:09→22:20)
[2020-10-30 11:21] LABS: Glucose Point of Care 154 mg/dL (70-110)
--- NOTE | 2020-10-30 11:52 | P.PN_ITS ---
Subjective Subjective: Interval history: Melissa reports she is doing okay. She denies any concerns. Last night, she had melanotic stool. Heparin drip was stopped. Hemoglobin this morning was okay. She has been having some loose stools. They are heme positive and C. difficile is negative. Denies abdominal discomfort this morning. In coming back from CT scan with contrast she was noted to have hives and itching. Medications: Reviewed: Yes Vitals/I&O/Wt Last Vital Signs Temp 98.4 F 10/30/20 11:04 Pulse 73 10/30/20 11:23 Resp 17 10/30/20 11:18 BP 132/74 10/30/20 11:04 Pulse Ox 97 10/30/20 11:18 10/29/20 10/30/20 10/30/20 22:59 06:59 14:59 Intake Total 1161.5 / 1266.5 313.5 / 1580.0 480 / 480 Output Total 1000 / 1000 1000 / 2000 Balance 161.5 / 266.5 -686.5 / -420.0 480 / 480 Weight last 48 hrs Weight 113.398 kg Physical Exam Narrative: EXAM NARRATIVE: General exam is no apparent distress Cardiovascular regular rate and rhythm, without murmur Lungs coarse at the bases Abdomen is soft with positive bowel sounds, slight epigastric tenderness Extremities no cyanosis clubbing or edema Neurologic: Hearing deficit noted but no obvious focal deficits. Urinary Catheter Management^: Gore: Cath Placed During This Visit: yes Reason for Continuing Indwelling Catheter: Accurate Measurement of Urinary Output in Critically Ill Patients Urinary Catheter Date of Insertion: 10/23/20 Urinary Catheter Time of Insertion: 17:54 Data : 10/30/20 04:30 10/30/20 04:30 Micro: Microbiology 10/30/20 05:11 C.difficile Toxin B Gene (PCR) - Final Stool Routine Collection Occult Blood (FIT) - Final 10/29/20 12:20 C.difficile Toxin B Gene (PCR) - Final Stool - Stool Aspirate 10/26/20 08:30 Gram Stain - Final Sputum - Endotracheal Tube Aspirate Sputum Culture - Final Maricarmen tropicalis A&P Assessment and plan (1) Cardiac arrest: Etiology likely secondary to pulmonary edema. CTA demonstrated no pulmonary embolism Status: Acute (2) NSTEMI (non-ST elevated myocardial infarction): Cardiology following Currently on Plavix and beta-aster Aspirin and heparin drip stopped secondary to melanotic stool and may need to stop Plavix as well but will follow clinically currently. Cardiology has been considering angiogram Status: Acute (3) Aspiration pneumonia: Currently on vancomycin and Primaxin Status: Acute (4) Acute respiratory failure: Extubated on August 25 Status: Acute Qualifiers: Respiratory failure complication: unspecified whether with hypoxia or hypercapnia Qualified Code(s): J96.00 - Acute respiratory failure, unspecified whether with hypoxia or hypercapnia (5) Hypokalemia: Replace potassium again today. Note that magnesium level was normal. Status: Acute (6) CHF (congestive heart failure): Diastolic. Echocardiogram demonstrates preserved EF. Grade 1/4 diastolic dysfunction Status: Acute Additional A&P Information Concern of CVA on admission. CT scan negative. Carotid duplex no flow-limiting disease. MRI results are pending Nausea, abdominal discomfort. Melanotic stools overnight. Check hemoglobin at noon. Change Protonix to IV. CT abdomen and pelvis demonstrating some stranding around the kidney, and probable bibasilar pneumonia. Bibasilar pneumonia. Continue vancomycin and Primaxin Return from CT with apparent allergic reaction with erythema, rash, itching. Given Solu-Medrol, Benadryl, Pepcid with significant improvement. SCDs for DVT prophylaxis. Anticoagulation held secondary to GI bleeding Attestations Medical Necessity Statement*: Needs continued hospital stay secondary to GI bleeding, cardiac arrest, IV antibiotics for pneumonia. Coding Level of Care Code Acute Scanning Supervisor for [facility] Diagnoses Cardiac arrest I46.9 NSTEMI (non-ST elevated myocardial infarction) I21.4 Aspiration pneumonia J69.0 Acute respiratory failure J96.00 Respiratory failure complication: unspecified whether with hypoxia or hypercapnia Hypokalemia E87.6 CHF (congestive heart failure) I50.9
--- NOTE | 2020-10-30 13:48 | P.PN_ITS ---
Subjective Subjective: Interval history: Patient is overall doing well. She denies complaints of chest pain, shortness of breath or palpitations. Overnight had melanotic stool and per the nurse had some raymond blood also noted in the stool. Vitals/I&O/Wt Last Vital Signs Temp 98.4 F 10/30/20 11:04 Pulse 73 10/30/20 11:23 Resp 17 10/30/20 11:18 BP 132/74 10/30/20 11:04 Pulse Ox 97 10/30/20 11:18 10/29/20 10/30/20 10/30/20 22:59 06:59 14:59 Intake Total 1161.5 / 1266.5 313.5 / 1580.0 960 / 960 Output Total 1000 / 1000 1000 / 2000 Balance 161.5 / 266.5 -686.5 / -420.0 960 / 960 Weight last 48 hrs Weight 250 lb Physical Exam Narrative: EXAM NARRATIVE: GENERAL: The patient is alert. Appears confused. HEENT: No significant pallor, icterus or lymphadenopathy.Oral cavity: There are no mucous membrane lesions. NECK: Trachea appears to be central. No masses noted. No JVD or thyromegaly appreciated. RESPIRATORY: The breath sounds are bilaterally with no rales or rhonchi. Intensity of the breath sounds are somewhat diminished in the bases. BREASTS: Deferred. HEART: The heart sounds are normal. No S3 or S4. Short systolic murmur at the base of the heart. No pericardial rub ABDOMEN: No vessel pulsations or distention. Mild epigastric tenderness. No organomegaly appreciated. Bowel sounds are normally heard. : Deferred. RECTAL: Deferred. LYMPHATIC: No lymphadenopathy noted in the neck or groin. EXTREMITIES: Trace edema with no cyanosis. Peripherals are palpable MUSCULOSKELETAL: No acute joint deformities or swelling SKIN: There are no significant rashes or ecchymosis NEUROPSYCHIATRIC: The patient is alert with no focal motor deficits. Urinary Catheter Management^: Gore: Cath Placed During This Visit: yes Reason for Continuing Indwelling Catheter: Accurate Measurement of Urinary Output in Critically Ill Patients Urinary Catheter Date of Insertion: 10/23/20 Urinary Catheter Time of Insertion: 17:54 Data : 10/30/20 13:11 10/30/20 04:30 Micro: Microbiology 10/30/20 05:11 C.difficile Toxin B Gene (PCR) - Final Stool Routine Collection Occult Blood (FIT) - Final 10/29/20 12:20 C.difficile Toxin B Gene (PCR) - Final Stool - Stool Aspirate 10/26/20 08:30 Gram Stain - Final Sputum - Endotracheal Tube Aspirate Sputum Culture - Final Maricarmen tropicalis A&P Assessment and plan (1) Pulmonary edema: Status: Acute Qualifiers: Chronicity: acute Qualified Code(s): J81.0 - Acute pulmonary edema (2) Acute respiratory failure: Status: Acute Qualifiers: Respiratory failure complication: unspecified whether with hypoxia or hypercapnia Qualified Code(s): J96.00 - Acute respiratory failure, unspecified whether with hypoxia or hypercapnia (3) Cardiac arrest: Status: Acute (4) 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 No PE on CTA Troponin elevation in setting of CPR. Her echocardiogram shows normal LV systolic function with no regional wall motion abnormalities. EKG does not show ST elevations or significant ischemic changes. Patient was on anticoagulation and dual antiplatelet agents however had GI bleed last night. Hgb is stable. Will hold off on the anticoagulation and dapt for now. Monitor hgb and if stays normal by tomorrow, can reinitiate aspirin. She will need ischemic evaluation with a coronary angiogram, ideally after workup for GI bleed Her WBC count is still elevated. On antibiotics. Continue statin Thank you for involving us with care of this patient. We will continue to follow. Please call with questions. Attestations Medical Necessity Statement*: Care expeced to cross 2 midnights Coding Level of Care Code Acute Polysomnographic Technician for [facility] Diagnoses Pulmonary edema J81.0 Chronicity: acute Acute respiratory failure J96.00 Respiratory failure complication: unspecified whether with hypoxia or hypercapnia Cardiac arrest I46.9 Insulin dependent type 2 diabetes mellitus E11.9; Z79.4 Hyperlipidemia E78.2 Hyperlipidemia type: mixed hyperlipidemia COPD (chronic obstructive pulmonary disease) J44.9 Hypertension I10 NSTEMI (non-ST elevated myocardial infarction) I21.4
[2020-10-30 14:04] LABS: Hematocrit 41.2 % (37.0-47.0); Hemoglobin 13.4 g/dL (11.5-15.3)
[2020-10-30 14:25] LABS: Bilirubin Urine 1+ (Negative); Blood Urine 2+ (Negative); Glucose Urine UA Norm (Normal); Ketones Urine 1+ (Negative); Leukocyte Esterase Urine Negative (Negative); Nitrate Urine Negative (Negative); Protein Urine 1+ (Negative); Specific Gravity, Urine 1.005 (1.005-1.030); Urine Appearance Clear (CLEAR); Urine Color Yellow (Yellow); Urobilinogen Urine 1 mg/dL (Negative); pH Urine 5 (5-7)
[2020-10-30 14:35] LABS: Add Urine Culture? No; Bacteria Urine TRACE /hpf; Squamous Epithelial Cell Urine 0-4 /hpf (0-5); WBC Urine 0-4 /hpf (0-5)
[2020-10-30 16:59] LABS: Glucose Point of Care 198 mg/dL (70-110)
--- NOTE | 2020-10-30 19:15 | PC.NURSE ---
pt had ct scan with contrast of abd this morning.returned to room at approx 10:00.face was very flushed,c/o severe total body pruritus,o2 sat in 80's.vss.dr burns notified.he ordered.methylprednilisone iv,benedryl iv,and pepcid iv...given as ordered.o2 sats improved,flushing improved,and itching resolved.instructed to notify staff for any sob,swelling of lips or tongue..or for any concerns at all.pt verb understanding of instructions.
[2020-10-30 20:12] LABS: Glucose Point of Care 167 mg/dL (70-110)
--- NOTE | 2020-10-30 20:25 | PC.NURSE ---
Received report from RACHNA Harris. Patient resting in bed with cpap in place. Introduced self to patient explaining the changes. Patient slow to respond but does respond appropriately and verbalized understanding. Medications administered as ordered. Cpap replaced by patient. No distress observed.
--- NOTE | 2020-10-30 22:10 | PC.NURSE ---
Patient c/o not being able to sleep. Called Dr Arnett and received telephone order for Ambien 10mg PO once. RBVO
[2020-10-31] VITALS (21 sets, daily range): BP systolic 113–164; BP diastolic 53–78; PULSE 49–68; RESP 15–21; TEMP 36.1–36.7; O2SAT 90–97
--- NOTE | 2020-10-31 00:03 | PC.NURSE ---
Patient slept for short while and awoke confused at this time. Patient had removed clothing and telemetry. Re-directed patient to place and time. Patient replied I have been in the hospital for a while. Patient requesting to sit up. Assisted patient up to chair using walker and x2 assist. Patient tolerated well. Assured patient that she would be monitored frequently. Bedside table placed in front of patient, drink provided and call duncan placed in reach with instruction to call if she needed anything.
[2020-10-31] MEDS: ipratropium-albuterol 3 mL Neb INHALATION ×5 (02:59→20:08)
[2020-10-31 04:50] LABS: Basophils % 0.2 %; Eosinophils % 0.2 %; Hematocrit 35.8 % (37.0-47.0); Hemoglobin 11.7 g/dL (11.5-15.3); Lymphocytes # 2.9 10^3/uL (0.8-4.8); Lymphocytes % 18.6 %; Mean Corpuscular HGB Conc 32.7 g/dL (30.0-36.0); Mean Corpuscular Volume 91.8 fL (81-99); Mean Platelet Volume 9.8 fL (7.4-10.4); Monocytes # 1.2 10^3/uL (0.2-0.9); Monocytes % 7.3 %; Neutrophils % 73.1 %; Nucleated Red Blood Cells % 0 %; Platelet Count 295 10^3/cmm (130-400); Red Cell Distribution Width 13.1 % (12.1-15.1); White Blood Count 15.8 10^3/uL (4.0-10.0)
[2020-10-31 05:11] LABS: Anion Gap 14.5 (5-19); Blood Urea Nitrogen 18 mg/dL (8-23); Calcium 9.5 mg/dL (8.5-10.5); Carbon Dioxide 28 mmol/L (22-29); Chloride 98 mmol/L (98-107); Glomerular Filtration Rate 72.9 mL/min (90-130); Glucose 107 mg/dL (65-115); Magnesium 1.8 mg/dL (1.7-2.3); Osmolality Calculated 286 mOsm/kg (285-295); Potassium 3.5 mmol/L (3.5-5.1); Sodium 137 mmol/L (136-145)
[2020-10-31 06:42] LABS: Glucose Point of Care 120 mg/dL (70-110)
[2020-10-31] MEDS: hyDRALAzine 25 mg Tablet PO ×3 (08:13→20:25)
[2020-10-31] MEDS: sennosides-docusate Tablet 2 TAB PO ×2 (08:13→17:10)
[2020-10-31] MEDS: amlodipine 10 mg Tablet PO (08:14)
[2020-10-31] MEDS: atorvastatin 40 mg Tablet 80 MG PO (08:14)
[2020-10-31] MEDS: isosorbide mononitrate ER 30 mg Tablet PO (08:14)
[2020-10-31] MEDS: docusate sodium 100 mg Capsule PO ×2 (08:14→17:11)
[2020-10-31] MEDS: spironolactone 25 mg Tablet PO (08:14)
[2020-10-31] MEDS: metoprolol tartrate 25 mg Tablet PO ×2 (08:15→20:25)
[2020-10-31] MEDS: FUROsemide 40 mg Tablet PO (08:15)
[2020-10-31] MEDS: lisinopril 20 mg Tablet PO ×2 (08:15→17:11)
[2020-10-31] MEDS: potassium chloride ER 20 mEq Tablet 40 MEQ PO (08:49)
[2020-10-31] MEDS: pantoprazole 40 mg SDV IVP ×2 (09:31→20:26)
--- NOTE | 2020-10-31 10:49 | PM.PN ---
Documented by User: JULIANE Beltran STDCHELLE 10/31/20 11:14 Subjective Subjective: Interval history: Melissa reports she is doing okay. Has slight epigastric pain with palpation. Had 1 small nonbloody bowel movement overnight. Hemoglobin is slightly decreased from yesterday. Hives and itching has resolved. No other complaints. Medications: Reviewed: Yes Vitals/I&O/Wt Last Vital Signs Temp 98.0 F 10/31/20 10:43 Pulse 68 10/31/20 10:43 Resp 18 10/31/20 10:43 BP 113/53 10/31/20 10:43 Pulse Ox 96 10/31/20 10:43 10/30/20 10/31/20 10/31/20 22:59 06:59 14:59 Intake Total 795 / 1960 590 / 2550 460 / 460 Output Total 1150 / 1150 300 / 1450 Balance -355 / 810 290 / 1100 460 / 460 Weight last 48 hrs Weight 113.398 kg Physical Exam Narrative: EXAM NARRATIVE: EXAM NARRATIVE: General exam is no apparent distress Cardiovascular regular rate and rhythm, without murmur Lungs coarse at the bases Abdomen is soft with positive bowel sounds, slight epigastric tenderness with palpation Extremities no cyanosis clubbing or edema Neurologic: Hearing deficit noted but no obvious focal deficits. Urinary Catheter Management^: Gore: Cath Placed During This Visit: yes Reason for Continuing Indwelling Catheter: Accurate Measurement of Urinary Output in Critically Ill Patients Urinary Catheter Date of Insertion: 10/23/20 Urinary Catheter Time of Insertion: 17:54 Data : 10/31/20 04:35 10/31/20 04:35 Micro: Microbiology 10/26/20 08:50 Blood Culture - Final Blood NO GROWTH AFTER 5 DAYS 10/26/20 08:44 Blood Culture - Final Blood NO GROWTH AFTER 5 DAYS 10/30/20 05:11 C.difficile Toxin B Gene (PCR) - Final Stool Routine Collection Occult Blood (FIT) - Final A&P Additional A&P Information Coding Level of Care Code Acute Crystallographer for [facility] Fwd Diagnoses Cardiac arrest I46.9 NSTEMI (non-ST elevated myocardial infarction) I21.4 Aspiration pneumonia J69.0 Acute respiratory failure J96.00 Respiratory failure complication: unspecified whether with hypoxia or hypercapnia Hypokalemia E87.6 CHF (congestive heart failure) I50.9 Documented by User: Virgilio Xie MD 10/31/20 15:57 Subjective Subjective: Interval history: Above reviewed in detail with the patient. No changes. Medications: Reviewed: Yes Physical Exam Narrative: EXAM NARRATIVE: Agree with above exam. I examined the patient myself as well. Urinary Catheter Management^: Gore: Cath Placed During This Visit: no Data : 10/31/20 04:35 10/31/20 04:35 A&P Assessment and plan (1) Cardiac arrest: Etiology likely pulmonary edema Secondary to past history of cardiac disease, evaluation with angiogram will occur tomorrow. Discussed with cardiology. Status: Acute (2) NSTEMI (non-ST elevated myocardial infarction): Plavix, aspirin and heparin discontinued secondary to GI bleeding. GI bleeding has stopped. Continue beta-aster, statin, Imdur, Aldactone Angiogram planned tomorrow Status: Acute (3) Aspiration pneumonia: Currently on vancomycin and Primaxin. Patient improving. Status: Acute (4) Acute respiratory failure: Extubated September 25, doing well Status: Acute Qualifiers: Respiratory failure complication: unspecified whether with hypoxia or hypercapnia Qualified Code(s): J96.00 - Acute respiratory failure, unspecified whether with hypoxia or hypercapnia (5) Hypokalemia: Resolved Status: Acute (6) CHF (congestive heart failure): Compensated currently Status: Acute Additional A&P Information Concern of CVA on admission. CT scan negative. Carotid duplex no flow-limiting disease. MRI results are pending Nausea, abdominal discomfort. Melanotic stools have stopped. Hemoglobin currently stable. Change Protonix to p.o. C. difficile toxin was checked and negative. CT abdomen and pelvis demonstrating some stranding around the kidney, and probable bibasilar pneumonia. Bibasilar pneumonia. Continue vancomycin and Primaxin. Sputum was positive for staph aureus on the ninth. Maricarmen grew from sputum culture, likely colonization. She has not had any fever. And white blood cell count is decreasing. Return from CT with apparent allergic reaction with erythema, rash, itching. Given Solu-Medrol, Benadryl, Pepcid with significant improvement. Cardiology will premedicate prior to angiogram SCDs for DVT prophylaxis. Anticoagulation held secondary to GI bleeding Attestations Medical Necessity Statement*: Needs continued hospitalization for IV antibiotics secondary to pneumonia Coding Level of Care Code Acute Crystallographer for [facility] Fwd Diagnoses Cardiac arrest I46.9 NSTEMI (non-ST elevated myocardial infarction) I21.4 Aspiration pneumonia J69.0 Acute respiratory failure J96.00 Respiratory failure complication: unspecified whether with hypoxia or hypercapnia Hypokalemia E87.6 CHF (congestive heart failure) I50.9
[2020-10-31] MEDS: acetaminophen 325 mg Tablet 650 MG PO (11:17)
[2020-10-31 11:42] LABS: Glucose Point of Care 147 mg/dL (70-110)
[2020-10-31 16:33] LABS: Vancomycin Trough 20.4 ug/mL (10-15)
[2020-10-31 16:47] LABS: Glucose Point of Care 103 mg/dL (70-110)
--- NOTE | 2020-10-31 16:49 | PM.PN ---
Subjective Subjective: Interval history: Patient is doing well. She denies any complaints of chest pain or shortness of breath. Vitals/I&O/Wt Last Vital Signs Temp 98.0 F 10/31/20 15:30 Pulse 62 10/31/20 16:15 Resp 18 10/31/20 16:15 BP 116/64 10/31/20 15:30 Pulse Ox 94 10/31/20 16:15 10/31/20 10/31/20 10/31/20 06:59 14:59 22:59 Intake Total 590 / 2550 1160 / 1160 Output Total 300 / 1450 550 / 550 450 / 1000 Balance 290 / 1100 610 / 610 -450 / 160 Weight last 48 hrs Weight 250 lb Physical Exam Narrative: EXAM NARRATIVE: GENERAL: The patient is alert. Appears confused. HEENT: No significant pallor, icterus or lymphadenopathy.Oral cavity: There are no mucous membrane lesions. NECK: Trachea appears to be central. No masses noted. No JVD or thyromegaly appreciated. RESPIRATORY: The breath sounds are bilaterally with no rales or rhonchi. Intensity of the breath sounds are somewhat diminished in the bases. BREASTS: Deferred. HEART: The heart sounds are normal. No S3 or S4. Short systolic murmur at the base of the heart. No pericardial rub ABDOMEN: No vessel pulsations or distention. Mild epigastric tenderness. No organomegaly appreciated. Bowel sounds are normally heard. : Deferred. RECTAL: Deferred. LYMPHATIC: No lymphadenopathy noted in the neck or groin. EXTREMITIES: Trace edema with no cyanosis. Peripherals are palpable MUSCULOSKELETAL: No acute joint deformities or swelling SKIN: There are no significant rashes or ecchymosis NEUROPSYCHIATRIC: The patient is alert with no focal motor deficits. Urinary Catheter Management^: Gore: Cath Placed During This Visit: yes Reason for Continuing Indwelling Catheter: Accurate Measurement of Urinary Output in Critically Ill Patients Urinary Catheter Date of Insertion: 10/23/20 Urinary Catheter Time of Insertion: 17:54 Data : 10/31/20 04:35 10/31/20 04:35 Micro: Microbiology 10/26/20 08:50 Blood Culture - Final Blood NO GROWTH AFTER 5 DAYS 10/26/20 08:44 Blood Culture - Final Blood NO GROWTH AFTER 5 DAYS A&P Assessment and plan (1) Pulmonary edema: Status: Acute Qualifiers: Chronicity: acute Qualified Code(s): J81.0 - Acute pulmonary edema (2) Acute respiratory failure: Status: Acute Qualifiers: Respiratory failure complication: unspecified whether with hypoxia or hypercapnia Qualified Code(s): J96.00 - Acute respiratory failure, unspecified whether with hypoxia or hypercapnia (3) Cardiac arrest: Status: Acute (4) 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 No PE on CTA Troponin elevation in setting of CPR. Her echocardiogram shows normal LV systolic function with no regional wall motion abnormalities. EKG does not show ST elevations or significant ischemic changes. Patient was on anticoagulation and dual antiplatelet agents however had melanotic stools and anticoagulation and antiplatelet agents stopped. Hgb slightly lower than yesterday. No more melanotic stool. Will hold off on the anticoagulation and dapt for now. Plan to perform coronary angiogram tomorrow. If there is significant coronary artery disease on angiogram, we will need evaluation for GI bleed before proceeding with PCI. I tried calling her today to discuss the plan but he did not answer his phone. NPO past midnight Her WBC count is improving. On antibiotics. Continue statin Thank you for involving us with care of this patient. We will continue to follow. Please call with questions. Attestations Medical Necessity Statement*: Care expected to cross 2 midnight Coding Level of Care Code Acute Certified Registered Locksmith for [facility] Fwd Diagnoses Pulmonary edema J81.0 Chronicity: acute Acute respiratory failure J96.00 Respiratory failure complication: unspecified whether with hypoxia or hypercapnia Cardiac arrest I46.9 Insulin dependent type 2 diabetes mellitus E11.9; Z79.4 Hyperlipidemia E78.2 Hyperlipidemia type: mixed hyperlipidemia COPD (chronic obstructive pulmonary disease) J44.9 Hypertension I10 NSTEMI (non-ST elevated myocardial infarction) I21.4
[2020-10-31 20:23] LABS: Glucose Point of Care 129 mg/dL (70-110)
[2020-10-31] MEDS: predniSONE 20 mg Tablet 50 MG PO (20:25)
[2020-10-31] MEDS: vancomycin 1,250 MG/250 ML PIGGYBACK 200 MG IV (22:59)
[2020-11-01] VITALS (46 sets, daily range): BP systolic 95–177; BP diastolic 51–105; PULSE 50–103; RESP 9–29; TEMP 36.6–36.8; O2SAT 75–96
[2020-11-01] MEDS: ipratropium-albuterol 3 mL Neb INHALATION ×3 (00:36→08:17)
[2020-11-01] MEDS: predniSONE 20 mg Tablet 50 MG PO ×2 (03:34→08:11)
[2020-11-01 05:07] LABS: Basophils % 0.2 %; Hematocrit 36.5 % (37.0-47.0); Hemoglobin 11.8 g/dL (11.5-15.3); Lymphocytes # 1.3 10^3/uL (0.8-4.8); Lymphocytes % 9.7 %; Mean Corpuscular HGB Conc 32.3 g/dL (30.0-36.0); Mean Corpuscular Volume 92.9 fL (81-99); Mean Platelet Volume 10.2 fL (7.4-10.4); Monocytes # 0.4 10^3/uL (0.2-0.9); Monocytes % 2.8 %; Neutrophils # 11.49 10^3/uL (1.8-7.7); Neutrophils % 86.8 %; Nucleated Red Blood Cells % 0 %; Platelet Count 287 10^3/cmm (130-400); Red Blood Count 3.93 10^6/uL (4.1-5.3); White Blood Count 13.2 10^3/uL (4.0-10.0)
[2020-11-01 05:32] LABS: Alanine Aminotransferase 6 U/L (0-33); Albumin Level 3.5 g/dL (3.5-5.2); Alkaline Phosphatase 100 IU/L (35-105); Blood Urea Nitrogen 13 mg/dL (8-23); Calcium 9.4 mg/dL (8.5-10.5); Carbon Dioxide 26 mmol/L (22-29); Chloride 101 mmol/L (98-107); Globulin 3.4 g/dL (1.3-4.6); Glomerular Filtration Rate 101.6 mL/min (90-130); Glucose 162 mg/dL (65-115); Osmolality Calculated 290 mOsm/kg (285-295); Sodium 138 mmol/L (136-145); Total Bilirubin 0.5 mg/dL (0.15-1.2); Total Protein 6.9 g/dL (6.6-8.7)
[2020-11-01 06:15] LABS: Anion Gap 14.9 (5-19); Aspartate Amino Transferase 13 U/L (0-32); Potassium 3.9 mmol/L (3.5-5.1)
[2020-11-01 06:35] LABS: Glucose Point of Care 145 mg/dL (70-110)
[2020-11-01] MEDS: atorvastatin 40 mg Tablet 80 MG PO (08:09)
[2020-11-01] MEDS: hyDRALAzine 25 mg Tablet PO ×3 (08:10→21:14)
[2020-11-01] MEDS: acetaminophen 325 mg Tablet 650 MG PO (08:10)
[2020-11-01] MEDS: isosorbide mononitrate ER 30 mg Tablet PO (08:10)
[2020-11-01] MEDS: FUROsemide 40 mg Tablet PO (08:10)
[2020-11-01] MEDS: amlodipine 10 mg Tablet PO (08:11)
[2020-11-01] MEDS: spironolactone 25 mg Tablet PO (08:11)
[2020-11-01] MEDS: lisinopril 20 mg Tablet PO ×2 (08:11→16:55)
[2020-11-01] MEDS: metoprolol tartrate 25 mg Tablet 12.5 MG PO ×2 (08:21→21:15)
[2020-11-01] MEDS: sodium chloride 0.9% 1,000 ML 50 ML IV (08:23)
--- NOTE | 2020-11-01 09:15 | XACV_ITS ---
Exam Room: [facility] Ht: 168 cm Wt: 113 kg BSA: 2.35 m2 Gender: Female : 1960 Any Known Allergies: Penicillins Exam Priority: Routine Procedure(s): Procedure Description: Diagnostic procedure Procedure Description: Coronary angiography Diagnostic Cath Status: Urgent Diagnostic Findings * Indication: 60 year old woman who had out of hospital cardiac arrest. No rhythm strips available. She had troponin elevation and pulmonary edema. LV systolic function was normal with normal LVEF on echo without regional wall motion abnormalities. Patient denies chest pain. Had a known RCA RETAIL HELPER in the past. She also had melanotic stools so anticoagulation held. Will proceed with diagnostic coronary angiogram and if PCI is needed will need GI bleed clearance before proceeding with that. * LM has luminal irregularities. No significant stenosis is seen. * LAD has mild luminal irregularties. It gives rise to a large sized diagonal artery that shows mid vessel moderate 50% stenosis. * CX has mild luminal irregularities without evidence of significant stenosis. * RCA arises from right coronary cusp. It has a mid vessel chronic total occlusion with left to right and right to right collaterals. mRCA: Severe 100% stenosis, chronic total occlusion, ZORAIDA: 0 flow. * 1st Diag: Moderate 50% stenosis, ZORAIDA: 3 flow. * Coronary angiography shows right dominance. Conclusions 1. There is severe coronary artery disease with RETAIL HELPER of the mid RCA. 2. Moderate mid first diagonal artery disease. Recommendations * Cardiac arrest not likely from coronary artery disease. No acute findings, RCA RETAIL HELPER was known. * Restart aspirin. Statin therapy. * If patient has chest pain in future, can consider stress test to assess ischemia in the diagonal artery territory. Interventional RX Recommendation: medical therapy and/or counseling Diagnostic RX Recommendation: medical therapy and/or counseling Anticoagulation: Heparin Pressures Phase:Rest AO : 131 / 50 ( 72 ) @ 5:10:00 AM Clinical Evaluation EBL: 5mL-10mL Procedural Details Pre-Procedure Time Out. Identified patient by full name and date of as verbalized by the patient/guarantor. Does the consent match the physician's order: Yes. Accurate & Complete Informed Consent: Yes. Inpatient/Outpatient History & Physical on Chart: Yes. If H&P is completed, is and addenduem needed: No; If yes, is the addendum complete: N/A. Visualize and Verify Site with Patient/Guarantor: N/A. Relevant Radiology Images available: Yes. Pre-op teaching completed and patient verbalized understanding. The risks, benefits, and alternatives of sedation and/or procedure were discussed by physician. The patient agrees to continue. Procedure started. [facility] Clinical Fraility Score: 4: Vulnerable. Physiognomist Indications: Worsening Angina. Chest Pain Symptom Assessment: Typical Angina Symptoms. Cardiovascular Instability: No. Correct patient, site and procedure confirmed by cath team. Current diagnosis: Stable angina. PERRLA. Strong, equal hand insurance operations rep bilaterally. Lungs clear x 5 lobes. IV Site on Arrival: 20 gauge in the left anticubital. IV Fluids: 0.9% NaCl at KVO. 50 mL infused prior to laborer airport maintenance. Pre Procedural Pulses: bilateral dorsalis pedis was 2+. Pre Procedural Pulses: bilateral posterior tibial was Doppled. Pre Procedural Pulses: bilateral radial was 2+. Oxygen started at 2liters/min via nasal canula. bilateral groins was prepped with chloroprep then draped in the usual sterile fashion. right radial was prepped with chloroprep then draped in the usual sterile fashion. Physician notified. Baseline sample Acquired. HR: 87 BPM. Equipment: 6F - Radial. Physician arrived. Physician scrubbed in. Immediate Pre-Procedure Time Out. Correct Patient: Yes; Correct Procedure: Yes; Correct Site: Yes; Correct Patient Position: Yes; Correct Supplies: Yes; Dried Flammable Prep: Yes; Blood Products Available: No;. Lidocaine 1% infiltrated to the right radial. Arterial access obtained. A 6 brazilian TIG catheter in over wire. Multiple views taken of left coronary artery. Catheter out. Multiple views taken of right coronary artery. Dr. Aceves scrubbed out to review films. TR band placed. Hemostasis obtained. A TR Band was successful obtaining hemostatsis at the Right Radial artery insertion site. Post Procedure: Pulses reassessed and unchanged. PERRLA. Strong, equal hand insurance operations rep bilaterally. No VTE prophylaxis required. Medication's Wasted: Lidocaine 1% = 18 mL. Medication's Wasted: Nitro = 49.8 mL. Medication's Wasted: Heparin = 1000 units. Medication's Wasted: Other = Versed 1 mg. Medication's Wasted: Other = Benadryl 25 mg. Total IV fluids: 50 mL. Contrast type used: Omnipaque 300 mgI/mL, 500 mL bottle. Post-op diagnosis: Normal Coronaries. Complications: None. Estimated blood loss: 5mL-10mL. Procedure completed. Patient transferred by bed to 1st floor. Vital chart was stopped. Access Site Site: Right Radial artery Sheath Size: 6 Fr Hemostasis Method: TR Band Hemostasis Success: Successful Procedure Medications Start: 10:55 AM Stop: 10:55 AM Medication: Benadryl Amount: 25 mg Route: I.V. Start: 11:01 AM Stop: 11:01 AM Medication: Versed Amount: 1 mg Route: I.V. Start: 11:01 AM Stop: 11:01 AM Medication: Fentanyl Amount: 50 mcg Route: I.V. Start: 11:02 AM Stop: 11:02 AM Medication: Versed Amount: 1 mg Route: I.V. Start: 11:04 AM Stop: 11:04 AM Medication: Fentanyl Amount: 50 mcg Route: I.V. Start: 11:07 AM Stop: 11:07 AM Medication: Nitrogylcerin Amount: 200 mcg Route: I.A. Start: 11:08 AM Stop: 11:08 AM Medication: Heparin Amount: 5000 units Route: I.V. Start: 11:08 AM Stop: 11:08 AM Medication: Versed Amount: 1 mg Route: I.V. I, the attending physician, have reviewed and verified all procedure medications. Yes, all medications given per verbal order History/Risk Factors Hypertension: Yes Dyslipidemia: Yes Peripheral Arterial Disease (PAD): No Myocardial Infarction (AK): No Obesity: No Renal Disease: No Tobacco Use: Current/Recent(w/in 1 year) Prior Interventions PCI: No CABG: No Valve Surgery: No Report Signatures Finalized by Cristiano Aceves MD on 11/03/2020 01:19 PM
[2020-11-01] MEDS: nystatin 100,000 unit/mL UDC 5 mL 500000 UNIT PO ×3 (09:20→21:17)
[2020-11-01] MEDS: pantoprazole 40 mg SDV IVP ×2 (09:54→21:18)
--- NOTE | 2020-11-01 09:55 | PM.PN ---
Subjective Subjective: Interval history: Patient is doing well. No chest pain, shortness of breath or palpitations. She underwent coronary angiogram today that revealed SEWER SEPARATION DESIGNER of RCA and moderate disease of first diagonal artery. No acute findings. Vitals/I&O/Wt Last Vital Signs Temp 98.1 F 11/01/20 07:41 Pulse 68 11/01/20 08:33 Resp 25 H 11/01/20 08:00 BP 136/91 11/01/20 07:41 Pulse Ox 95 11/01/20 08:00 10/31/20 11/01/20 11/01/20 22:59 06:59 14:59 Intake Total 580 / 1740 550 / 2290 Output Total 450 / 1000 1100 / 2100 Balance 130 / 740 -550 / 190 Physical Exam Narrative: EXAM NARRATIVE: GENERAL: The patient is alert. Appears confused. HEENT: No significant pallor, icterus or lymphadenopathy.Oral cavity: There are no mucous membrane lesions. NECK: Trachea appears to be central. No masses noted. No JVD or thyromegaly appreciated. RESPIRATORY: The breath sounds are bilaterally with no rales or rhonchi. Intensity of the breath sounds are somewhat diminished in the bases. BREASTS: Deferred. HEART: The heart sounds are normal. No S3 or S4. Short systolic murmur at the base of the heart. No pericardial rub ABDOMEN: No vessel pulsations or distention. Mild epigastric tenderness. No organomegaly appreciated. Bowel sounds are normally heard. : Deferred. RECTAL: Deferred. LYMPHATIC: No lymphadenopathy noted in the neck or groin. EXTREMITIES: Trace edema with no cyanosis. Peripherals are palpable MUSCULOSKELETAL: No acute joint deformities or swelling SKIN: There are no significant rashes or ecchymosis NEUROPSYCHIATRIC: The patient is alert with no focal motor deficits. Urinary Catheter Management^: Gore: Cath Placed During This Visit: yes Reason for Continuing Indwelling Catheter: Accurate Measurement of Urinary Output in Critically Ill Patients Urinary Catheter Date of Insertion: 10/23/20 Urinary Catheter Time of Insertion: 17:54 Data : 11/01/20 04:38 11/01/20 04:38 Micro: Microbiology 10/26/20 13:30 MRSA Culture - Final Nose 10/26/20 08:50 Blood Culture - Final Blood NO GROWTH AFTER 5 DAYS 10/26/20 08:44 Blood Culture - Final Blood NO GROWTH AFTER 5 DAYS A&P Assessment and plan (1) Pulmonary edema: Status: Acute Qualifiers: Chronicity: acute Qualified Code(s): J81.0 - Acute pulmonary edema (2) Acute respiratory failure: Status: Acute Qualifiers: Respiratory failure complication: unspecified whether with hypoxia or hypercapnia Qualified Code(s): J96.00 - Acute respiratory failure, unspecified whether with hypoxia or hypercapnia (3) Cardiac arrest: Status: Acute (4) 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 No PE on CTA Troponin elevation in setting of CPR. Her echocardiogram shows normal LV systolic function with no regional wall motion abnormalities. EKG does not show ST elevations or significant ischemic changes. Patient underwent coronary angiogram today as she had cardiac arrest(no EMS strips available) and pulmonary edema on presentation. Coronary angiography showed SEWER SEPARATION DESIGNER of RCA, moderate disease of diagonal artery and no significant disease in the LAD and left circumflex artery. Her cardiac arrest unlikely to be secondary to CAD. LV systolic function is normal. As outpatient, if she has chest pain symptoms, will perform stress test to further assess the diagonal stenosis. However she is asymptomatic at this time. We will continue medical therapy Will continue on aspirin and statin therapy given coronary artery disease. Her WBC count is improving. On antibiotics. Continue statin Thank you for involving us with care of this patient. We will continue to follow. Please call with questions. Attestations Medical Necessity Statement*: Care expected to cross 2 midnights. Coding Level of Care Code Acute Home School Coordinator for [facility] Diagnoses Pulmonary edema J81.0 Chronicity: acute Acute respiratory failure J96.00 Respiratory failure complication: unspecified whether with hypoxia or hypercapnia Cardiac arrest I46.9 Insulin dependent type 2 diabetes mellitus E11.9; Z79.4 Hyperlipidemia E78.2 Hyperlipidemia type: mixed hyperlipidemia COPD (chronic obstructive pulmonary disease) J44.9 Hypertension I10 NSTEMI (non-ST elevated myocardial infarction) I21.4
--- NOTE | 2020-11-01 10:34 | PC.NURSE ---
to cardiac lab instructor via bed at this time.
--- NOTE | 2020-11-01 10:59 | P.PN_ITS ---
Subjective Subjective: Interval history: Melissa reports she is doing okay. Nurses have no particular concerns today. Angiogram is planned. Patient denies any shortness of breath or chest discomfort. There has been no bloody stools overnight. Medications: Reviewed: Yes Vitals/I&O/Wt Last Vital Signs Temp 98.1 F 11/01/20 07:41 Pulse 68 11/01/20 08:33 Resp 25 H 11/01/20 08:00 BP 136/91 11/01/20 07:41 Pulse Ox 95 11/01/20 08:00 10/31/20 11/01/20 11/01/20 22:59 06:59 14:59 Intake Total 580 / 1740 550 / 2290 Output Total 450 / 1000 1100 / 2100 Balance 130 / 740 -550 / 190 Physical Exam Narrative: EXAM NARRATIVE: General exam is no apparent distress Neck is supple no lymphadenopathy Cardiovascular regular rate and rhythm without murmur Lungs clear Abdomen is soft with positive bowel sounds Extremities no edema Urinary Catheter Management^: Gore: Cath Placed During This Visit: yes Reason for Continuing Indwelling Catheter: Accurate Measurement of Urinary Output in Critically Ill Patients Urinary Catheter Date of Insertion: 10/23/20 Urinary Catheter Time of Insertion: 17:54 Data : 11/01/20 04:38 11/01/20 04:38 Micro: Microbiology 10/26/20 13:30 MRSA Culture - Final Nose 10/26/20 08:50 Blood Culture - Final Blood NO GROWTH AFTER 5 DAYS 10/26/20 08:44 Blood Culture - Final Blood NO GROWTH AFTER 5 DAYS A&P Assessment and plan (1) Cardiac arrest: Etiology likely pulmonary edema Secondary to past history of cardiac disease, evaluation with angiogram occurring today Appreciate cardiology consultation Status: Acute (2) NSTEMI (non-ST elevated myocardial infarction): Plavix, aspirin and heparin discontinued secondary to GI bleeding. GI bleeding has stopped. Continue beta-aster, statin, Imdur, Aldactone Angiogram today Consider resuming aspirin tomorrow Status: Acute (3) Aspiration pneumonia: Currently on vancomycin and Primaxin. Patient significantly improved Await MRSA PCR Status: Acute (4) Acute respiratory failure: Extubated September 25, doing well Status: Acute Qualifiers: Respiratory failure complication: unspecified whether with hypoxia or hypercapnia Qualified Code(s): J96.00 - Acute respiratory failure, unspecified whether with hypoxia or hypercapnia (5) Hypokalemia: Resolved Status: Acute (6) CHF (congestive heart failure): Compensated currently Status: Acute Additional A&P Information Concern of CVA on admission. CT scan negative. Carotid duplex no flow-limiting disease. MRI showed no CVA Nausea, abdominal discomfort. Melanotic stools have stopped. Hemoglobin currently stable. Change Protonix to p.o. nausea and abdominal discomfort have gone away. C. difficile toxin was checked and negative. CT abdomen and pelvis demonstrating some stranding around the kidney, and probable bibasilar pneumonia. Bibasilar pneumonia. Continue vancomycin and Primaxin. Sputum was positive for staph aureus on the ninth. Maricarmen grew from sputum culture, likely colonization. Nystatin ordered swish and swallow. She has not had any fever. And white blood cell count continues to decrease Return from CT with apparent allergic reaction with erythema, rash, itching. Given Solu-Medrol, Benadryl, Pepcid with significant improvement. Cardiology will premedicate prior to angiogram SCDs for DVT prophylaxis. Anticoagulation held secondary to GI bleeding Attestations Medical Necessity Statement*: Needs continued hospitalization for evaluation by cardiology for cardiac arrest. Coding Level of Care Code Acute Manager Of Data for [facility] Diagnoses Cardiac arrest I46.9 NSTEMI (non-ST elevated myocardial infarction) I21.4 Aspiration pneumonia J69.0 Acute respiratory failure J96.00 Respiratory failure complication: unspecified whether with hypoxia or hypercapnia Hypokalemia E87.6 CHF (congestive heart failure) I50.9
--- NOTE | 2020-11-01 12:15 | PC.NURSE ---
return from cardiac quality control lab technician at 1130.report received.pt is alert and oriented x 3.denies pain.sr on monitor.right radial artery tr band on and inflated.right hand is warm to touch and with brisk capillary refill.palpable radial pulse noted distal to tr band.no hematoma noted.there is bruising that was present prior to procedure and this was outlined and marked as old .instructed in activity restrictions s/p radial artery procedure...and instructed to notify staff for any bleeding,pain,numbness..or for any other concerns.pt verb understanding of instructions.
[2020-11-01 12:54] LABS: Glucose Point of Care 190 mg/dL (70-110)
--- NOTE | 2020-11-01 13:31 | PC.OT ---
OT TREATMENT ATTEMPTED. PER NURSING, PATIENT HAD CATH PROCEDURE TODAY AND IS ON HOLD FOR THERAPY FOR THE REMAINDER OF THE DAY. WILL ATTEMPT AGAIN TOMORROW.
--- NOTE | 2020-11-01 14:56 | W.PM.OPSUD ---
Surgery/Procedure H&P Update DATE OF PROCEDURE: November 01, 2020 DATE H&P PERFORMED: 10/24/20 H&P UPDATE INFORMATION: I have reviewed H&P completed within last 30 days, I have examined patient prior to procedure and No changes to prior documentation PREOP DIAGNOSIS: NSTEMI/ CARDIAC ARREST PRIMARY INDICATION FOR PROCEDURE: NSTEMI/CARDIAC ARREST PLANNED PROCEDURE: Operation Date: 11/01/20 10:00 Proposed Procedures p Cardiac Catheterization(Not Applicable) - Cristiano Aceves M.D PHYSICAL EXAM: alert, oriented x 3, clear to auscultation bilaterally and regular rate & rhythm AIRWAY EVAL/ANESTHESIA PLAN: ASA III, Risks, benefits & alternatives of sedation and/or procedure discussed and Patient agrees to continue as planned
[2020-11-01 16:35] LABS: Glucose Point of Care 256 mg/dL (70-110)
[2020-11-01] MEDS: vancomycin 1,250 MG/250 ML PIGGYBACK 200 MG IV (16:55)
--- NOTE | 2020-11-01 19:18 | PC.NURSE ---
right tr band was slowly deflated and removed at 1600.dressed with 2x2 gauze and secured with tegaderm.right hand remains warm to touch and with brisk capillary reffill.no hematoma noted.palpable radial pulse noted.instructed in activity restrictions s/p tr band removal...and instructed to notify staff for any bleeding,pain,numbness...or for any concerns at all.pt verb understanding of instructions
--- NOTE | 2020-11-01 19:40 | PC.NURSE ---
pt's daughter called this afternoon and wanted this included in record...that pt's spouse noticed some forgetfulness after pt was extubated...but most recently,pt's mentation is same as prior to to admission.
[2020-11-01 20:33] LABS: Glucose Point of Care 117 mg/dL (70-110)
[2020-11-02] VITALS (10 sets, daily range): BP systolic 122–161; BP diastolic 61–81; PULSE 55–82; RESP 11–29; TEMP 36.7–37.3; O2SAT 90–97
[2020-11-02] MEDS: diphenhydrAMINE 50 mg/mL SDV 1mL 25 MG IVP (02:19)
[2020-11-02 04:26] LABS: Blood Urea Nitrogen 15 mg/dL (8-23); Calcium 8.7 mg/dL (8.5-10.5); Carbon Dioxide 26 mmol/L (22-29); Chloride 102 mmol/L (98-107); Glomerular Filtration Rate 85.1 mL/min (90-130); Glucose 100 mg/dL (65-115); Osmolality Calculated 289 mOsm/kg (285-295); Sodium 139 mmol/L (136-145)
[2020-11-02 04:27] LABS: Anion Gap 14.1 (5-19); Potassium 3.1 mmol/L (3.5-5.1)
[2020-11-02 06:47] LABS: Glucose Point of Care 116 mg/dL (70-110)
[2020-11-02] MEDS: metoprolol tartrate 25 mg Tablet 12.5 MG PO ×2 (08:03→20:39)
[2020-11-02] MEDS: lisinopril 20 mg Tablet PO ×2 (08:03→18:08)
[2020-11-02] MEDS: isosorbide mononitrate ER 30 mg Tablet PO (08:03)
[2020-11-02] MEDS: spironolactone 25 mg Tablet PO (08:03)
[2020-11-02] MEDS: FUROsemide 40 mg Tablet PO (08:03)
[2020-11-02] MEDS: atorvastatin 40 mg Tablet 80 MG PO (08:03)
[2020-11-02 08:33] LABS: Magnesium 1.6 mg/dL (1.7-2.3)
--- NOTE | 2020-11-02 08:59 | PM.PN ---
Subjective Subjective: Interval history: Patient is doing well. Denies chest pain, shortness of breath or palpitations. She underwent coronary angiography yesterday that showed MICROWAVE RADIO TECHNICIAN of RCA and moderate disease of first diagonal artery. No acute changes. Vitals/I&O/Wt Last Vital Signs Temp 99.1 F 11/02/20 03:16 Pulse 65 11/02/20 07:15 Resp 17 11/02/20 07:15 BP 160/80 11/02/20 03:16 Pulse Ox 91 11/02/20 07:15 11/01/20 11/02/20 11/02/20 22:59 06:59 14:59 Intake Total 2740 / 2980 1200 / 4180 Output Total 650 / 2000 325 / 2326 Balance 2090 / 979 875 / 1854 Physical Exam Narrative: EXAM NARRATIVE: GENERAL: The patient is alert. Appears confused. HEENT: No significant pallor, icterus or lymphadenopathy.Oral cavity: There are no mucous membrane lesions. NECK: Trachea appears to be central. No masses noted. No JVD or thyromegaly appreciated. RESPIRATORY: The breath sounds are bilaterally with no rales or rhonchi. Intensity of the breath sounds are somewhat diminished in the bases. BREASTS: Deferred. HEART: The heart sounds are normal. No S3 or S4. Short systolic murmur at the base of the heart. No pericardial rub ABDOMEN: No vessel pulsations or distention. Mild epigastric tenderness. No organomegaly appreciated. Bowel sounds are normally heard. : Deferred. RECTAL: Deferred. LYMPHATIC: No lymphadenopathy noted in the neck or groin. EXTREMITIES: Trace edema with no cyanosis. Peripherals are palpable MUSCULOSKELETAL: No acute joint deformities or swelling SKIN: There are no significant rashes or ecchymosis NEUROPSYCHIATRIC: The patient is alert with no focal motor deficits. Urinary Catheter Management^: Gore: Cath Placed During This Visit: yes Reason for Continuing Indwelling Catheter: Accurate Measurement of Urinary Output in Critically Ill Patients Urinary Catheter Date of Insertion: 10/23/20 Urinary Catheter Time of Insertion: 17:54 Data : 11/03/20 03:41 11/03/20 03:41 Micro: Microbiology 11/01/20 16:00 C.difficile Toxin B Gene (PCR) - Final Stool Routine Collection 10/26/20 13:30 MRSA Culture - Final Nose A&P Assessment and plan (1) NSTEMI (non-ST elevated myocardial infarction): Status: Acute (2) Cardiac arrest: Status: Acute (3) Pulmonary edema: Status: Acute Qualifiers: Chronicity: acute Qualified Code(s): J81.0 - Acute pulmonary edema (4) Acute respiratory failure: Status: Acute Qualifiers: Respiratory failure complication: unspecified whether with hypoxia or hypercapnia Qualified Code(s): J96.00 - Acute respiratory failure, unspecified whether with hypoxia or hypercapnia (5) 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 No PE on CTA Troponin elevation in setting of CPR. Her echocardiogram shows normal LV systolic function with no regional wall motion abnormalities. EKG does not show ST elevations or significant ischemic changes. Patient underwent coronary angiogram yesterday as she had cardiac arrest(no EMS strips available) and pulmonary edema on presentation. Coronary angiography showed MICROWAVE RADIO TECHNICIAN of RCA, moderate disease of diagonal artery and no significant disease in the LAD and left circumflex artery. Her cardiac arrest unlikely to be secondary to CAD. LV systolic function is normal. As outpatient, if she has chest pain symptoms, will perform stress test to further assess the diagonal stenosis. However she is asymptomatic at this time. We will continue medical therapy Will continue on aspirin and statin therapy given coronary artery disease. Her WBC count is improving. On antibiotics. Continue statin Patient is ready to be discharged from cardiology standpoint Thank you for involving us with care of this patient. We will continue to follow. Please call with questions. Attestations Medical Necessity Statement*: Care expected to cross 2 midnights. Coding Level of Care Code Acute Brush Filler Hand for [facility] Diagnoses NSTEMI (non-ST elevated myocardial infarction) I21.4 Cardiac arrest I46.9 Pulmonary edema J81.0 Chronicity: acute Acute respiratory failure J96.00 Respiratory failure complication: unspecified whether with hypoxia or hypercapnia Insulin dependent type 2 diabetes mellitus E11.9; Z79.4 Hyperlipidemia E78.2 Hyperlipidemia type: mixed hyperlipidemia COPD (chronic obstructive pulmonary disease) J44.9 Hypertension I10
[2020-11-02] MEDS: potassium chloride ER 20 mEq Tablet 40 MEQ PO ×2 (09:40→18:08)
[2020-11-02] MEDS: aspirin 81 mg EC Tablet 162 MG PO (09:40)
[2020-11-02] MEDS: docusate sodium 100 mg Capsule PO ×2 (09:41→18:08)
[2020-11-02] MEDS: hyDRALAzine 25 mg Tablet PO ×3 (09:41→20:39)
[2020-11-02] MEDS: sennosides-docusate Tablet 2 TAB PO ×2 (09:41→18:08)
[2020-11-02] MEDS: amlodipine 10 mg Tablet PO (09:41)
[2020-11-02 09:53] LABS: Procalcitonin 0.05 ng/mL (0-0.5)
[2020-11-02] MEDS: pantoprazole 40 mg SDV IVP ×2 (10:23→20:39)
[2020-11-02] MEDS: vancomycin 1,250 MG/250 ML PIGGYBACK 200 MG IV (10:23)
[2020-11-02 11:48] LABS: Glucose Point of Care 162 mg/dL (70-110)
--- NOTE | 2020-11-02 12:18 | P.PN_ITS ---
Documented by User: JULIANE Beltran STDCHELLE 11/02/20 12:29 Subjective Subjective: Interval history: Melissa reports she is doing okay. Denies shortness of breath, chest discomfort, or abdominal pain. Nurses report she had diarrhea a couple of times yesterday. PT reports she is weak and can only stand for a couple of seconds. Medications: Reviewed: Yes Vitals/I&O/Wt Last Vital Signs Temp 98.8 F 11/02/20 11:17 Pulse 60 11/02/20 11:17 Resp 20 H 11/02/20 11:17 BP 127/61 11/02/20 11:17 Pulse Ox 90 11/02/20 11:17 11/01/20 11/02/20 11/02/20 22:59 06:59 14:59 Intake Total 2740 / 2980 1200 / 4180 368 / 368 Output Total / 2000 325 / 2326 Balance 2090 / 979 875 / 1854 368 / 368 Physical Exam Narrative: EXAM NARRATIVE: General: white female in no apparent distress Cardiovascular: regular rate and rhythm, no murmur Lungs: clear Abdomen: soft, nontender, positive bowel sounds Lower extremities: no edema or cyanosis Urinary Catheter Management^: Gore: Cath Placed During This Visit: yes Reason for Continuing Indwelling Catheter: Accurate Measurement of Urinary Output in Critically Ill Patients Urinary Catheter Date of Insertion: 10/23/20 Urinary Catheter Time of Insertion: 17:54 Data : 11/01/20 04:38 11/02/20 03:24 Micro: Microbiology 11/01/20 16:00 C.difficile Toxin B Gene (PCR) - Final Stool Routine Collection 10/26/20 13:30 MRSA Culture - Final Nose Coding Level of Care Code 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 I interviewed the patient as well. Physical Exam Narrative: EXAM NARRATIVE: No changes from that above Urinary Catheter Management^: Gore: Cath Placed During This Visit: no Data : 11/01/20 04:38 11/02/20 03:24 A&P Assessment and plan (1) Cardiac arrest: No arrhythmias in-house Consider outpatient event monitor Status: Acute (2) NSTEMI (non-ST elevated myocardial infarction): Angiogram performed demonstrating no need for any further intervention. Medical treatment only. Appreciate cardiology consultation. Continue aspirin, statin, beta-aster Plavix, and anticoagulation stopped secondary to GI bleed Status: Acute (3) Aspiration pneumonia: Currently on Primaxin, vancomycin.. Patient significantly improved. De- escalate antibiotics to Levaquin. Status: Acute (4) Acute respiratory failure: Resolved. Patient has transitioned to room air with an oxygen saturation of 90% Status: Acute Qualifiers: Respiratory failure complication: unspecified whether with hypoxia or hypercapnia Qualified Code(s): J96.00 - Acute respiratory failure, unspecified whether with hypoxia or hypercapnia (5) Hypokalemia: Supplement. Hypomagnesemia also noted. 2 g IV ordered. Status: Acute (6) CHF (congestive heart failure): Compensated currently Status: Acute Additional A&P Information Concern of CVA on admission. CT scan negative. Carotid duplex no flow-limiting disease. MRI showed no CVA Nausea, abdominal discomfort. Melanotic stools have stopped. Hemoglobin currently stable. Change Protonix to p.o. nausea and abdominal discomfort have gone away. C. difficile toxin was checked and negative. CT abdomen and pelvis demonstrating some stranding around the kidney, and probable bibasilar p neumonia. Bibasilar pneumonia. De-escalate antibiotics to Levaquin. Sputum was positive for staph aureus on the ninth. Maricarmen grew from sputum culture, likely colonization. Nystatin ordered swish and swallow. She has not had any fever. And white blood cell count continues to decrease Return from CT with apparent allergic reaction with erythema, rash, itching. SCDs for DVT prophylaxis. Anticoagulation held secondary to GI bleeding Attestations Medical Necessity Statement*: Needs continued hospitalization for transition to oral antibiotics, close monitoring following angiogram with anticipation of discharge to home with home health tomorrow. 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
[2020-11-02] MEDS: magnesium sulfate premix 2 GM/50 ML PIGGYBACK IV (14:03)
[2020-11-02] MEDS: levoFLOXacin 750 mg Tablet PO (14:59)
[2020-11-02 16:10] LABS: Glucose Point of Care 141 mg/dL (70-110)
[2020-11-02] MEDS: ALPRAZolam 0.25 mg Tablet PO (18:08)
[2020-11-02] MEDS: nystatin 100,000 unit/mL UDC 5 mL 500000 UNIT PO (20:38)
[2020-11-02 20:46] LABS: Glucose Point of Care 112 mg/dL (70-110)
[2020-11-03] VITALS (10 sets, daily range): BP systolic 138–151; BP diastolic 77–85; PULSE 53–78; RESP 12–60; TEMP 36.6–36.7; O2SAT 93–99
[2020-11-03 05:46] LABS: Basophils # 0.1 10^3/uL (0.0-0.1); Basophils % 0.5 %; Eosinophils # 0.2 10^3/uL (0.0-0.8); Eosinophils % 1.7 %; Hematocrit 37.6 % (37.0-47.0); Hemoglobin 12.1 g/dL (11.5-15.3); Lymphocytes # 2.9 10^3/uL (0.8-4.8); Lymphocytes % 23.4 %; Mean Corpuscular HGB Conc 32.2 g/dL (30.0-36.0); Mean Corpuscular Volume 93.3 fL (81-99); Mean Platelet Volume 9.9 fL (7.4-10.4); Monocytes # 0.9 10^3/uL (0.2-0.9); Neutrophils # 8.23 10^3/uL (1.8-7.7); Neutrophils % 66.9 %; Nucleated Red Blood Cells % 0 %; Platelet Count 393 10^3/cmm (130-400); Red Blood Count 4.03 10^6/uL (4.1-5.3); Red Cell Distribution Width 13.2 % (12.1-15.1); White Blood Count 12.3 10^3/uL (4.0-10.0)
[2020-11-03] MEDS: levoFLOXacin 750 mg Tablet PO (06:16)
[2020-11-03 06:17] LABS: Anion Gap 13.5 (5-19); Blood Urea Nitrogen 13 mg/dL (8-23); Calcium 8.8 mg/dL (8.5-10.5); Carbon Dioxide 29 mmol/L (22-29); Chloride 101 mmol/L (98-107); Glomerular Filtration Rate 101.6 mL/min (90-130); Glucose 107 mg/dL (65-115); Osmolality Calculated 291 mOsm/kg (285-295); Potassium 3.5 mmol/L (3.5-5.1); Sodium 140 mmol/L (136-145)
[2020-11-03 06:49] LABS: Glucose Point of Care 116 mg/dL (70-110)
--- NOTE | 2020-11-03 06:52 | PC.NURSE ---
Patient when sleeping with Cpap on maintains SB in the upper 40's to 50's with occasional trend down to 39 Patient easily arousable and asymptomatic BP maintains WNL and MAP above 65 Oxygen saturation maintains at 96-100. Will continue to monitor and assist as needed following CPOC
--- NOTE | 2020-11-03 06:55 | P.DS_ITS ---
Discharge Providers Date of Admission: 10/23/20 18:08 Date of Discharge: November 03, 2020 Attending Provider at Admission: Donis Caban MD Attending Provider at Discharge: Virgilio Xie MD Primary Care Provider: Leah Millard DO Diagnoses at Discharge Discharge Diagnosis (1) Cardiac arrest: Status: Acute (2) NSTEMI (non-ST elevated myocardial infarction): Status: Acute (3) Aspiration pneumonia: Status: Acute (4) Acute respiratory failure: Status: Acute Qualifiers: Respiratory failure complication: unspecified whether with hypoxia or hypercapnia Qualified Code(s): J96.00 - Acute respiratory failure, unspecified whether with hypoxia or hypercapnia (5) Hypokalemia: Status: Acute (6) CHF (congestive heart failure): Status: Acute Reason for Visit Reason for Visit: HEAD PAIN, INTUBATED Hospital Course Hospital Course Melissa is a 60-year-old female who presented to the emergency department with history of cardiac arrest. From what I understand she had a headache prior to the event. Patient's family did CPR, and patient was intubated in the field. On arrival to the emergency department she was noted to have significant hypertension. She was admitted to the intensive care unit. CTA of the head and neck demonstrated no flow-limiting stenosis. Chest x-ray demonstrated pulmonary edema. CT head demonstrated no acute infarction. She was also placed on IV antibiotics for concern of aspiration pneumonia. Cardiology was consulted. They believe troponin elevation was likely in the setting of CPR. She was placed on cardiac protective medicines until work-up complete be completed consisting of a heparin drip, aspirin, statin. She was diuresed. She was able to be extubated August 25. MRI was eventually performed of her brain after extubation demonstrating no CVA. As she continued to improve it was planned to do an angiogram but she developed some melanotic stools. Anticoagulation and antiplatelet medication was discontinued and she was placed on Protonix. C. difficile was checked and negative. Hemoglobin did not decrease significantly. 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 Aspirin was restarted and patient continued to be monitored closely. By November 03 it was determined the patient could go home with home health with close follow-up with her primary care provider as well as cardiology. She will have an event monitor as an outpatient. She will complete 3 more days of Levaquin. Other significance to note during hospital stay was potential reaction to radiological dye when she had a CT scan of her abdomen and pelvis. This was treated with IV steroids and Benadryl. CT demonstrated likely mild bibasilar pneumonia. Echocardiogram was also performed which demonstrated preserved EF, no wall motion abnormality and 1/4 diastolic dysfunction. CTA of chest was performed demonstrating no pulmonary embolism. Extensive blood pressure medication modification occurred in house and blood pressure was adequately controlled on discharge. It is possible her arrest was secondary to hypertensive emergency. Physical Exam Narrative: EXAM NARRATIVE: General exam no apparent distress Cardiovascular regular rate and rhythm Lungs clear Abdomen is soft with positive bowel sounds Extremities no cyanosis clubbing or edema Urinary Catheter Management^: Gore: Cath Placed During This Visit: yes, but has since been removed by the nurse Reason for Continuing Indwelling Catheter: Decision to DC Catheter Urinary Catheter Date of Insertion: 10/23/20 Urinary Catheter Time of Insertion: 17:54 Date Urinary Catheter Removed: 11/02/20 Time Urinary Catheter Discontinued: 17:52 Discharge Data Data Completed and Pending: Completed Studies During Hospitalization Category Date Time Status CT abdomen pelvis w con* [id number] Rout ine Cat Scan 10/30/20 07:[address] angio chest PE protcl [id number] Urge nt Cat Scan 10/24/20 06:[address] angio headneck * [id number] Urge nt Cat Scan 10/23/20 16:[address] head wo con* 7 0450 Stat Cat Scan 10/27/20 10:[address] head wo con* 7 0450 Urgent Cat Scan 10/23/20 16:40 Completed XR chest 1V ricci ble [id number] Routine Exams 10/24/20 07:00 Completed XR chest 1V ricci ble [id number] Routine Exams 10/25/20 07:00 Completed XR chest 1V ricci ble [id number] Routine Exams 10/26/20 07:00 Completed XR chest 1V ricci ble [id number] Routine Exams 10/27/20 07:00 Completed XR chest 1V ricci ble 17420 Stat Exams 10/23/20 16:40 Completed MR head wo con* 7 0551 Routine MRI 10/29/20 08:44 Completed CV echo complete* [id number] Routine Ultrasound 10/24/20 07:00 [place] [id number] Routin e Ultrasound 10/24/20 06:00 Completed US gall bladder 7 6705 Routine Ultrasound 10/29/20 12:54 Completed Pending at discharge Category Date Time Status 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 Routin e Exams 11/01/20 09:15 Taken MRSA by MARÍA [facility] 10/29/20 15:25 Ordered MR head wo con* 7 0551 Routine MRI 10/29/20 14:30 Unverified Labs from last 24 hours 11/03/20 11/03/20 11/03/20 06:44 03:41 03:41 WBC 12.3 H RBC 4.03 L Hgb 12.1 Hct 37.6 MCV 93.3 MCH 30.0 MCHC 32.2 RDW 13.2 Plt Count 393 MPV 9.9 Neut % (Auto) 66.9 Lymph % (Auto) 23.4 [place] % (Auto) 7.0 Eos % (Auto) 1.7 Baso % (Auto) 0.5 Neut # (Auto) 8.23 H Lymph # (Auto) 2.9 [place] # (Auto) 0.9 Eos # (Auto) 0.2 Baso # (Auto) 0.1 Nucleated RBC % (a uto) 0 Nucleated RBCs # 0.0 Sodium 140 Potassium 3.5 Chloride 101 Carbon Dioxide 29 Anion Gap 13.5 BUN 13 Creatinine 0.6 GFR Calculation 101.6 Glucose 107 POC Glucose 116 H Calculated Osmolal ity 291 Calcium 8.8 Magnesium 2.0 Procalcitonin 11/02/20 11/02/20 11/02/20 20:39 16:01 11:15 WBC RBC Hgb Hct MCV MCH MCHC RDW Plt Count MPV Neut % (Auto) Lymph % (Auto) [place] % (Auto) Eos % (Auto) Baso % (Auto) Neut # (Auto) Lymph # (Auto) [place] # (Auto) Eos # (Auto) Baso # (Auto) Nucleated RBC % (a uto) Nucleated RBCs # Sodium Potassium Chloride Carbon Dioxide Anion Gap BUN Creatinine GFR Calculation Glucose POC Glucose 112 H 141 H 162 H Calculated Osmolal ity Calcium Magnesium Procalcitonin 11/02/20 11/02/20 04:38 03:24 WBC RBC Hgb Hct MCV MCH MCHC RDW Plt Count MPV Neut % (Auto) Lymph % (Auto) [place] % (Auto) Eos % (Auto) Baso % (Auto) Neut # (Auto) Lymph # (Auto) [place] # (Auto) Eos # (Auto) Baso # (Auto) Nucleated RBC % (a uto) Nucleated RBCs # Sodium Potassium Chloride Carbon Dioxide Anion Gap BUN Creatinine GFR Calculation Glucose POC Glucose Calculated Osmolal ity Calcium Magnesium 1.6 L Procalcitonin 0.05 Vitals: Last Vital Signs Temp 98.1 F 11/03/20 03:52 Pulse 53 L 11/03/20 05:47 Resp 12 11/03/20 03:52 BP 139/77 11/03/20 03:52 Pulse Ox 99 11/03/20 03:52 Discharge Plan Discharge Patient Disposition: Home Health Service Condition: Stable Prescriptions: New lisinopril 20 mg Tablet 20 mg PO BID Qty: 60 RF: 0 spironolactone 25 mg Tablet 25 mg PO DAILY Qty: 30 RF: 0 aspirin 81 mg Tablet,Delayed Release (Dr/Ec) 162 mg PO DAILY Qty: 60 RF: 0 levofloxacin 750 mg Tablet 750 mg PO DAILY@0600 Qty: 3 RF: 0 pantoprazole [Protonix] 40 mg tablet,delayed release (DR/EC) 40 mg PO BID Qty: 60 RF: 0 amlodipine 10 mg Tablet 10 mg PO DAILY Qty: 30 RF: 0 hydralazine 25 mg Tablet 25 mg PO TID Qty: 90 RF: 0 metoprolol tartrate 25 mg Tablet 12.5 mg PO BID@0900,2100 Qty: 30 RF: 0 Continued cyanocobalamin (vitamin B-12) 1,000 mcg capsule 1,000 mcg PO DAILY RF: 0 isosorbide mononitrate 30 mg tablet extended release 24 hr 30 mg PO DAILY RF: 0 calcium carbonate 500 mg calcium (1,250 mg) tablet,chewable 500 mg PO DAILY RF: 0 albuterol sulfate 90 mcg/actuation HFA aerosol inhaler 2 puff INHALATION Q6H PRN (Reason: Respiratory Distress) RF: 0 Spiriva with HandiHaler 18 mcg capsule, w/inhalation device 1 cap INHALATION DAILY RF: 0 Symbicort 160-4.5 mcg/actuation HFA aerosol inhaler 2 puff INHALATION BID RF: 0 aripiprazole [Abilify] 10 mg tablet 10 mg PO QDAY RF: 0 Soliqua 100/33 100 unit-33 mcg/mL insulin pen 45 unit SUBCUT DAILY RF: 0 potassium chloride 10 mEq capsule, extended release 10 meq PO DAILY RF: 0 atorvastatin 80 mg tablet 80 mg PO DAILY RF: 0 ergocalciferol (vitamin D2) 50,000 unit capsule 50,000 unit PO DAILY RF: 0 furosemide 40 mg tablet 40 mg PO DAILY RF: 0 vilazodone 40 mg tablet 40 mg PO DAILY RF: 0 promethazine 25 mg tablet 25 mg PO Q6H PRN (Reason: Nausea) RF: 0 Discontinued montelukast 10 mg tablet 10 mg PO DAILY RF: 0 hydrocodone-ibuprofen 7.5-200 mg tablet 1 tab PO Q6H PRN (Reason: Pain) RF: 0 pregabalin 225 mg capsule 225 mg PO DAILY RF: 0 clopidogrel 75 mg tablet 75 mg PO DAILY RF: 0 tizanidine 2 mg capsule 2 mg PO BID PRN (Reason: Muscle Spasm) RF: 0 colchicine 0.6 mg capsule 0.6 mg PO DAILY RF: 0 prochlorperazine maleate 10 mg tablet 10 mg PO BID PRN (Reason: Nausea) RF: 0 metoprolol tartrate 50 mg tablet 50 mg PO DAILY RF: 0 lisinopril 20 mg tablet 20 mg PO DAILY RF: 0 trazodone 100 mg tablet 100 mg PO DAILY RF: 0 No Action (DME) WALKER See Rx Instructions .Route .MEDSUPPLY Qty: 1 RF: 0 (DME) Long Hinge Knee Brace See Rx Instructions .Route .MEDSUPPLY Qty: 1 RF: 0 Other Ambulatory Orders: CA cardiac event monitor (Routine) Timeframe: 3 Days Facility: [facility] - Location: Cardiac Diagnostic Laboratory Ordered By: Virgilio Xie Referrals: Cristiano Aceves M.D [Physician] - 1 week (Follow-up cardiac arrest, coronary disease) Leah Millard DO [Primary Care Provider] - 4-7 days (CBC and BMP on follow- up) Discharge Diet: Diabetic Discharge Activity: Increase activity as tolerated Patient Instructions: Left Heart Catheterization (DC) Activity Restrictions/Additional Instructions: Take all medicine as prescribed Follow-up with primary care provider 3 to 4 days with CBC and BMP Discharge Attestations Time Spent in Discharge Care*: greater than 30 min Quality Metrics Clinical Quality Measures During this hospital stay, did patient experience: AMI Clinical Trial Participant: No Contraindication to aspirin (AMI): Aspirin given Contrai ndication to statin: Statin prescribed Coding Level of Care Code 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
[2020-11-03] MEDS: aspirin 81 mg EC Tablet 162 MG PO (08:05)
[2020-11-03] MEDS: isosorbide mononitrate ER 30 mg Tablet PO (08:05)
[2020-11-03] MEDS: FUROsemide 40 mg Tablet PO (08:05)
[2020-11-03] MEDS: amlodipine 10 mg Tablet PO (08:06)
[2020-11-03] MEDS: atorvastatin 40 mg Tablet 80 MG PO (08:06)
[2020-11-03] MEDS: spironolactone 25 mg Tablet PO (08:06)
[2020-11-03] MEDS: sennosides-docusate Tablet 2 TAB PO (08:06)
[2020-11-03] MEDS: hyDRALAzine 25 mg Tablet PO ×2 (08:06→14:24)
[2020-11-03] MEDS: potassium chloride ER 20 mEq Tablet PO (08:06)
[2020-11-03] MEDS: docusate sodium 100 mg Capsule PO (08:06)
[2020-11-03] MEDS: lisinopril 20 mg Tablet PO (08:06)
[2020-11-03] MEDS: pantoprazole 40 mg SDV IVP (10:00)
[2020-11-03] MEDS: metoprolol tartrate 25 mg Tablet 12.5 MG PO (10:00)
--- NOTE | 2020-11-03 10:00 | PC.NURSE ---
Talked to family Pt's called ang given an update on pt's discharge instructions. Per , he will picked her up today. Waiting for the snow plowed on their driveway and area.
[2020-11-03 10:58] LABS: Glucose Point of Care 151 mg/dL (70-110)
--- NOTE | 2020-11-03 17:24 | PC.NURSE ---
Discharge to home with spouse at bedside Instructed pt to follow-up with her pcp and licensed audiologist. Educated pt and on the new meds actions, timing, possible side effects. Educated pt on what to do with hypokalemia, chf stoplight, pneumonia stoplight. Instructed pt and to monitor her blood pressure and blood sugar at home. If there are any concerns to call her doctors as soon as possible. Discharge instruction packet provided to pt.
== END 2020-11-03 17:22 | disposition home health service (06) | DRG 280 ==
LOC: ER 18:12 → ICU 18:53 → CSU 10-29 21:45
PROVIDERS: Hospitalist; Internal Medicine; Admitting Provider Family Medicine; Emergency Provider Emergency Medicine; PCP Family Medicine; Visit Provider Internal Medicine
PROC: B2111ZZ Fluoroscopy of Multiple Coronary Arteries using Low Osmolar Contrast (ICD-10-PCS; principal; 2020-11-01 10:00)
DX: I46.9 Cardiac arrest, cause unspecified (principal); J96.00 Acute respiratory failure, unspecified whether with hypoxia or hypercapnia; I21.4 Non-ST elevation (NSTEMI) myocardial infarction; J69.0 Pneumonitis due to inhalation of food and vomit; K92.2 Gastrointestinal hemorrhage, unspecified; J44.9 Chronic obstructive pulmonary disease, unspecified; F17.210 Nicotine dependence, cigarettes, uncomplicated; E11.9 Type 2 diabetes mellitus without complications; Z79.4 Long term (current) use of insulin; I50.9 Heart failure, unspecified; I11.0 Hypertensive heart disease with heart failure; E78.2 Mixed hyperlipidemia; I25.10 Atherosclerotic heart disease of native coronary artery without angina pectoris; Z86.73 Personal history of transient ischemic attack (TIA), and cerebral infarction without residual deficits; Z79.02 Long term (current) use of antithrombotics/antiplatelets; G89.29 Other chronic pain; Z79.891 Long term (current) use of opiate analgesic; Z85.038 Personal history of other malignant neoplasm of large intestine; Z90.49 Acquired absence of other specified parts of digestive tract; Z92.21 Personal history of antineoplastic chemotherapy; F41.8 Other specified anxiety disorders; I16.0 Hypertensive urgency; I65.23 Occlusion and stenosis of bilateral carotid arteries; Z87.442 Personal history of urinary calculi; G56.02 Carpal tunnel syndrome, left upper limb; Z79.51 Long term (current) use of inhaled steroids; E87.6 Hypokalemia; F03.90 Unspecified dementia, unspecified severity, without behavioral disturbance, psychotic disturbance, mood disturbance, and anxiety; S82.009D Unspecified fracture of unspecified patella, subsequent encounter for closed fracture with routine healing; X58.XXXD Exposure to other specified factors, subsequent encounter; R51.9 Headache, unspecified; Z87.440 Personal history of urinary (tract) infections
CPT/HCPCS: 12345; 36415; 36416; 36600; 51702; 70450; 70496; 70498; 70551; 71045; 71275; 74177; 76705; 80048; 80051; 80053; 80061; 80202; 81001; 82274; 82330; 82550; 82803; 82805; 82962; 83036; 83605; 83735; 83880; 84100; 84132; 84145; 84443; 84484; 85014; 85018; 85025; 85049; 85378; 85610; 85730; 86140; 87040; 87070; 87077; 87086; 87106; 87186; 87205; 87426; 87493; 87641; 92523; 92610; 93005; 93306; 93454; 93970; 94002; 94003; 94640; 94660; 94799; 96372; 97110; 97161; 97165; 97530; 97535; 99283; C1769; C1887; C1894; C9113; J0743; J1200; J1644; J1815; J1940; J2060; J2250; J2405; J2704; J2930; J3010; J3370; J3475; J3480; J3490; J7030; J7050; J7512; J8498; Q9967

== ENCOUNTER 2021-01-08 14:25 | Outpatient (RCR) | payer OTHER, MEDICAID, SELFPAY | END 2021-01-11 23:59 | disposition home or self-care (01) | LOC: SPT 14:25 | PROVIDERS: PCP Family Medicine; Referring Provider Orthopaedic Surgery; Visit Provider Orthopaedic Surgery | DX: S82.002D Unspecified fracture of left patella, subsequent encounter for closed fracture with routine healing (principal); X58.XXXD Exposure to other specified factors, subsequent encounter | CPT/HCPCS: 97110; 97162 ==

== ENCOUNTER 2021-01-12 06:00 | Outpatient (RCR) | payer OTHER, MEDICAID, SELFPAY | END 2021-02-11 23:59 | disposition home or self-care (01) | LOC: SPT 06:00 | PROVIDERS: PCP Family Medicine; Referring Provider Orthopaedic Surgery; Visit Provider Orthopaedic Surgery | DX: S82.002D Unspecified fracture of left patella, subsequent encounter for closed fracture with routine healing (principal); X58.XXXD Exposure to other specified factors, subsequent encounter | CPT/HCPCS: 97110 ==

== ENCOUNTER 2021-01-23 21:45 | Emergency (ER) | payer OTHER, MEDICAID, SELFPAY ==
[2021-01-23 21:55] VITALS: BP 144/82; PULSE 69; RESP 14; TEMP 36.8; O2SAT 94; BMI 39.0
[2021-01-23 22:15] LABS: Glucose Point of Care 459 mg/dL (70-110)
--- NOTE | 2021-01-24 00:51 | W.ED.GENADLT ---
HPI - General Adult General: Chief complaint: General Medical Stated complaint: high blood sugar Time Seen by Provider: 01/24/21 00:28 Source: patient Mode of arrival: ambulatory Limitations: no limitations History of Present Illness: HPI narrative: [id number] female has a long history of diabetes. States that her blood sugars been running high recently and they did just increase her Lantus. States that tonight was getting into the 500s and she was concerned. States she has been feeling well on has had any fever or any signs of infection. States she is had some weakness. Denies any vomiting or diarrhea. Denies any worsening improving factors. Patient's blood sugar here was initially. She states she has been taking her meds as prescribed. Associated symptoms: Deny chest pain, dyspnea, nausea, rash or vomiting Review of Systems Const: Denies: fever(s), chills, body aches or change in appetite Eyes: Denies: blurry vision or eye discomfort ENMT: Denies: throat pain or dental pain Card: Denies: chest pain Resp: Denies: dyspnea GI: Denies: abdominal pain, nausea, vomiting or diarrhea : Denies: dysuria Musc: Denies: neck pain or back pain Skin/Breast: Denies: rash Neuro: Reports: weakness in extremities Psych: Denies: depression Bal/Lymph: Denies: easy bruising All/Imm: Denies: urticaria PFSH ED PFSH: Medical History Bilateral kidney stones Calcium urolithiasis Cardiac arrest Carpal tunnel syndrome of left wrist Chronic pain COPD (chronic obstructive pulmonary disease) History of colon cancer Hyperlipidemia Hypertension Incontinence Insulin dependent type 2 diabetes mellitus Internal carotid artery stenosis Multiple sclerosis Diagnosed in 2015 Patella fracture Recurrent urinary tract infection Surgical History History of appendectomy History of cholecystectomy History of colon resection COLON CANCER History of tonsillectomy Hx of adenoidectomy Hx of detached retina repair S/P extracorporeal shock wave therapy LEFT URETERAL STENT PLACEMENT Family History Father Parkinsons disease Mother Parkinsons disease Other CAD (coronary artery disease) Social History Smoking and tobacco status: current some day smoker Alcohol intake: never Adopted: No Caregiver/support person: No Lives independently: No Household members: spouse Marital status: Current occupational status: disabled History of recent travel: No Current gender identity: Female Physical Exam Const: COMMON NORMALS: no acute distress and patient oriented x3 NUTRITIONAL APPEARANCE: obese HENMT: COMMON NORMALS: normocephalic and atraumatic HEAD & SCALP: normocephalic and atraumatic Eye: COMMON NORMALS: Equal, round and reactive pupils present and EOMs intact bilaterally PUPIL: Yes Equal, round and reactive pupils present Neck/C-Spine: COMMON NORMALS: full ROM and supple Chest: COMMONS NORMALS: normal inspection of the chest and normal palpation of entire chest wall Resp: COMMON NORMALS: normal respiratory effort, No retractions, No use of accessory muscles and clear to auscultation bilaterally AUSCULTATION: clear to auscultation bilaterally Cardio: COMMON NORMALS: regular rate, regular rhythm and No murmurs present (Cardio) RATE: regular rate RHYTHM: regular rhythm GI: COMMON NORMALS: Normal to inspection, nondistended, normoactive bowel sounds present, Soft to palpation, non-tender and no masses PALPATION: Yes Soft to palpation Extremity: COMMON NORMALS: normal to inspection and full ROM Neuro: COMMON NORMALS: patient oriented x3, moves all extremities and no focal motor deficits Psych: COMMON NORMALS: mental status grossly normal, Normal thought process present and cooperative THOUGHT PROCESS: Normal thought process present Skin: COMMON NORMALS: no rashes or lesions noted and no wounds GENERAL SKIN EXAM: no rashes or lesions noted Course Vital Signs: Vital signs: Vital Signs Temperature 98.4 F 01/24/21 03:48 Pulse Rate 88 01/24/21 03:48 Respiratory Rate 18 01/24/21 03:48 Blood Pressure 148/73 01/24/21 03:48 Pulse Oximetry 96 01/24/21 03:48 MDM - General Adult MDM Narrative: Medical decision making narrative: Patient presents with hyperglycemia that is improved. She has no signs of DKA her blood sugar here is now in the low 300s and she feels improved and is stable for discharge. She is to continue on insulin at home and follow-up with PCP in 2 to 4 days. She is return if worsening. She has no signs of infection. She does have some nausea and will treat with Zofran at home. Lab Data: Labs: Lab Results 01/23/21 01/24/21 01/24/21 Range/Units 22:01 01:22 02:20 WBC 11.1 H (4.0-10.0) 10^3/ uL RBC 4.25 (4.1-5.3) 10^6/u L Hgb 12.5 (11.5-15.3) g/dL Hct 39.1 (37.0-47.0) % MCV 92.0 (81-99) fL MCH 29.4 (28.0-34.0) pg MCHC 32.0 (30.0-36.0) g/dL RDW 13.8 (12.1-15.1) % Plt Count 275 (130-400) 10^3/c mm MPV 10.4 (7.4-10.4) fL Neut % (Auto) 59.3 % Lymph % (Auto) 29.2 % [place] % (Auto) 7.2 % Eos % (Auto) 3.1 % Baso % (Auto) 0.9 % Neut # (Auto) 6.60 (1.8-7.7) 10^3/u L Lymph # (Auto) 3.2 (0.8-4.8) 10^3/u L [place] # (Auto) 0.8 (0.2-0.9) 10^3/u L Eos # (Auto) 0.3 (0.0-0.8) 10^3/u L Baso # (Auto) 0.1 (0.0-0.1) 10^3/u L Nucleated RBC % (a uto) 0 % Nucleated RBCs # 0.0 /100WBC Potassium (3.5-5.1) mmol/L Carbon Dioxide (22-29) mmol/L Anion Gap (5-19) BUN (8-23) mg/dL POC Glucose 459 H 403 H (70-110) mg/dL Calculated Osmolal ity (285-295) mOsm/k g Calcium (8.5-10.5) mg/dL Total Bilirubin (0.15-1.2) mg/dL AST (0-32) U/L ALT (0-33) U/L Total Protein (6.6-8.7) g/dL Albumin (3.5-5.2) g/dL Globulin (1.3-4.6) g/dL Serum Ketones (Negative) 01/24/21 01/24/21 01/24/21 Range/Units 02:20 02:20 02:23 WBC (4.0-10.0) 10^3/ uL RBC (4.1-5.3) 10^6/u L Hgb (11.5-15.3) g/dL Hct (37.0-47.0) % MCV (81-99) fL MCH (28.0-34.0) pg MCHC (30.0-36.0) g/dL RDW (12.1-15.1) % Plt Count (130-400) 10^3/c mm MPV (7.4-10.4) fL Neut % (Auto) % Lymph % (Auto) % [place] % (Auto) % Eos % (Auto) % Baso % (Auto) % Neut # (Auto) (1.8-7.7) 10^3/u L Lymph # (Auto) (0.8-4.8) 10^3/u L [place] # (Auto) (0.2-0.9) 10^3/u L Eos # (Auto) (0.0-0.8) 10^3/u L Baso # (Auto) (0.0-0.1) 10^3/u L Nucleated RBC % (a uto) % Nucleated RBCs # /100WBC Potassium 4.0 (3.5-5.1) mmol/L Carbon Dioxide 29 (22-29) mmol/L Anion Gap 14.0 (5-19) BUN 12 (8-23) mg/dL POC Glucose 430 H (70-110) mg/dL Calculated Osmolal ity 290 (285-295) mOsm/k g Calcium 8.7 (8.5-10.5) mg/dL Total Bilirubin 0.3 (0.15-1.2) mg/dL AST 13 (0-32) U/L ALT 17 (0-33) U/L Total Protein 7.2 (6.6-8.7) g/dL Albumin 3.6 (3.5-5.2) g/dL Globulin 3.6 (1.3-4.6) g/dL Serum Ketones Negative (Negative) 01/24/21 Range/Units 03:37 WBC (4.0-10.0) 10^3/ uL RBC (4.1-5.3) 10^6/u L Hgb (11.5-15.3) g/dL Hct (37.0-47.0) % MCV (81-99) fL MCH (28.0-34.0) pg MCHC (30.0-36.0) g/dL RDW (12.1-15.1) % Plt Count (130-400) 10^3/c mm MPV (7.4-10.4) fL Neut % (Auto) % Lymph % (Auto) % [place] % (Auto) % Eos % (Auto) % Baso % (Auto) % Neut # (Auto) (1.8-7.7) 10^3/u L Lymph # (Auto) (0.8-4.8) 10^3/u L [place] # (Auto) (0.2-0.9) 10^3/u L Eos # (Auto) (0.0-0.8) 10^3/u L Baso # (Auto) (0.0-0.1) 10^3/u L Nucleated RBC % (a uto) % Nucleated RBCs # /100WBC Potassium (3.5-5.1) mmol/L Carbon Dioxide (22-29) mmol/L Anion Gap (5-19) BUN (8-23) mg/dL POC Glucose 337 H (70-110) mg/dL Calculated Osmolal ity (285-295) mOsm/k g Calcium (8.5-10.5) mg/dL Total Bilirubin (0.15-1.2) mg/dL AST (0-32) U/L ALT (0-33) U/L Total Protein (6.6-8.7) g/dL Albumin (3.5-5.2) g/dL Globulin (1.3-4.6) g/dL Serum Ketones (Negative) Discharge Plan Discharge Patient Disposition: Home Clinical Impression: Hyperglycemia, Nausea Condition: Stable Prescriptions: New ondansetron 4 mg tablet,disintegrating 4 mg PO Q6H PRN (Reason: nausea and vomiting) Qty: 14 RF: 0 No Action cyanocobalamin (vitamin B-12) 1,000 mcg capsule 1,000 mcg PO DAILY RF: 0 isosorbide mononitrate 30 mg tablet extended release 24 hr 30 mg PO DAILY RF: 0 calcium carbonate 500 mg calcium (1,250 mg) tablet,chewable 500 mg PO DAILY RF: 0 albuterol sulfate 90 mcg/actuation HFA aerosol inhaler 2 puff INHALATION Q6H PRN (Reason: Respiratory Distress) RF: 0 Spiriva with HandiHaler 18 mcg capsule, w/inhalation device 1 cap INHALATION DAILY RF: 0 Symbicort 160-4.5 mcg/actuation HFA aerosol inhaler 2 puff INHALATION BID RF: 0 aripiprazole [Abilify] 10 mg tablet 10 mg PO QDAY RF: 0 Soliqua 100/33 100 unit-33 mcg/mL insulin pen 45 unit SUBCUT DAILY RF: 0 potassium chloride 10 mEq capsule, extended release 10 meq PO DAILY RF: 0 atorvastatin 80 mg tablet 80 mg PO DAILY RF: 0 ergocalciferol (vitamin D2) 50,000 unit capsule 50,000 unit PO DAILY RF: 0 furosemide 40 mg tablet 40 mg PO DAILY RF: 0 vilazodone 40 mg tablet 40 mg PO DAILY RF: 0 promethazine 25 mg tablet 25 mg PO Q6H PRN (Reason: Nausea) RF: 0 (DME) WALKER See Rx Instructions .Route .MEDSUPPLY Qty: 1 RF: 0 propranolol 10 mg tablet 10 mg PO TID Qty: 90 RF: 0 lisinopril 20 mg Tablet 20 mg PO BID Qty: 60 RF: 0 Hold Instructions: hypotension hydralazine 25 mg Tablet 25 mg PO TID Qty: 90 RF: 0 Hold Instructions: hypotension aspirin 81 mg Tablet,Delayed Release (Dr/Ec) 162 mg PO DAILY Qty: 60 RF: 0 spironolactone 25 mg Tablet 25 mg PO DAILY Qty: 30 RF: 0 amlodipine 10 mg Tablet 10 mg PO DAILY Qty: 30 RF: 0 Hold Instructions: hypotension levofloxacin 750 mg Tablet 750 mg PO DAILY@0600 Qty: 3 RF: 0 metoprolol tartrate 25 mg Tablet 12.5 mg PO BID@0900,2100 Qty: 30 RF: 0 Protonix 40 mg tablet,delayed release (DR/EC) 40 mg PO BID Qty: 60 RF: 0 Discharge Orders: Discharge ED (Routine); Ordered 01/24/21 Ordered By: Yuriy Levine Referrals: Leah Millard DO [Primary Care Provider] - 1-3 days Discharge Diet: Advance as tolerated Discharge Activity: Resume usual activity Patient Instructions: Acute Nausea and Vomiting (ED), Diabetic Hyperglycemia (ED) Coding Level of Care Code ED Mold Hoister for Chg Fwd Exam Comprehensive
[2021-01-24 01:33] LABS: Glucose Point of Care 403 mg/dL (70-110)
[2021-01-24 02:32] LABS: Glucose Point of Care 430 mg/dL (70-110)
[2021-01-24 02:35] VITALS: BP 154/84; PULSE 59; O2SAT 95
[2021-01-24 02:36] LABS: Basophils # 0.1 10^3/uL (0.0-0.1); Basophils % 0.9 %; Eosinophils # 0.3 10^3/uL (0.0-0.8); Eosinophils % 3.1 %; Hematocrit 39.1 % (37.0-47.0); Hemoglobin 12.5 g/dL (11.5-15.3); Lymphocytes # 3.2 10^3/uL (0.8-4.8); Lymphocytes % 29.2 %; Mean Corpuscular Hemoglobin 29.4 pg (28.0-34.0); Mean Platelet Volume 10.4 fL (7.4-10.4); Monocytes # 0.8 10^3/uL (0.2-0.9); Monocytes % 7.2 %; Neutrophils % 59.3 %; Nucleated Red Blood Cells % 0 %; Platelet Count 275 10^3/cmm (130-400); Red Blood Count 4.25 10^6/uL (4.1-5.3); Red Cell Distribution Width 13.8 % (12.1-15.1); White Blood Count 11.1 10^3/uL (4.0-10.0)
[2021-01-24 02:43] LABS: Ketone (Acetest) Serum Negative (Negative)
[2021-01-24] MEDS: insulin regular-human 100 units/1 mL 10 UNIT IVP (02:45)
[2021-01-24] MEDS: sodium chloride 0.9% 1,000 ML 999 ML IV (02:46)
[2021-01-24 03:41] LABS: Glucose Point of Care 337 mg/dL (70-110)
[2021-01-24] MEDS: ondansetron 2 mg/ML SDV 2 mL 4 MG IVP (03:41)
[2021-01-24 03:48] VITALS: BP 148/73; PULSE 88; RESP 18; TEMP 36.9; O2SAT 96
[2021-01-24 03:50] LABS: Alanine Aminotransferase 17 U/L (0-33); Albumin Level 3.6 g/dL (3.5-5.2); Alkaline Phosphatase 142 IU/L (35-105); Aspartate Amino Transferase 13 U/L (0-32); Blood Urea Nitrogen 12 mg/dL (8-23); Calcium 8.7 mg/dL (8.5-10.5); Carbon Dioxide 29 mmol/L (22-29); Chloride 92 mmol/L (98-107); Globulin 3.6 g/dL (1.3-4.6); Glomerular Filtration Rate 56.4 mL/min (90-130); Glucose 433 mg/dL (65-115); Osmolality Calculated 290 mOsm/kg (285-295); Sodium 131 mmol/L (136-145); Total Bilirubin 0.3 mg/dL (0.15-1.2); Total Protein 7.2 g/dL (6.6-8.7)
[2021-01-24 03:53] LABS: Creatinine Clr Calc Pharmacy 74.1332
[2021-01-24 06:54] LABS: ABG PCO2 49.5 mmHg (35-45); ABG PH Result 7.39 (7.35-7.45); Alveolar-Arterial Oxygen Gradi 3.8 mmHg (5-10); Arterial Blood Gas Hematocrit 39.6 % (37-47); Base Excess ABG 4.1 mmol/L (-2.0-2.0); Blood Gas Sample Site Brachial, right; Blood Gas Sample Type Arterial; Carboxyhemoglobin 1.2 %THgb (0.4-20.1); HCO3 ABG 30.1 mmol/L (22-26); HGB O2 Sat 90.2 % (95-100); Ionized Calcium Level - ABG 1.2 mmol/L (1.1-1.4); Methemoglobin 0.8 % (0.4-1.5); Oxygen Device ROOM AIR; Oxygen Saturation ABG 92.1; Potassium Level - ABG 3.7 mmol/L (3.5-5.0); Total Hemoglobin 12.9 g/dL (12-16)
== END 2021-01-24 04:00 | disposition home or self-care (01) ==
PROVIDERS: Emergency Medicine; Physician Assistant; Emergency Provider Emergency Medicine; PCP Family Medicine
DX: E11.65 Type 2 diabetes mellitus with hyperglycemia (principal); R11.0 Nausea; Z79.82 Long term (current) use of aspirin; J44.9 Chronic obstructive pulmonary disease, unspecified; Z85.038 Personal history of other malignant neoplasm of large intestine; E78.5 Hyperlipidemia, unspecified; I10 Essential (primary) hypertension; G35 Multiple sclerosis; F17.210 Nicotine dependence, cigarettes, uncomplicated
CPT/HCPCS: 36416; 36600; 80051; 80053; 82009; 82330; 82805; 82962; 85025; 96361; 96374; 96375; 99284; J1815; J2405; J7030

== ENCOUNTER 2021-07-29 19:02 | Emergency (ER) | payer OTHER, MEDICAID, SELFPAY ==
--- NOTE | 2021-07-29 19:04 | ECG_ITS ---
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 Measurements Intervals [place] Rate: 70 P: 54 CT: 219 QRS: 22 QRSD: 78 T: 37 QT: 371 QTc: 402 Interpretive Statements SINUS RHYTHM WITH FIRST DEGREE AV BLOCK Compared to ECG 10/26/2020 06:21:26 First degree AV block now present Sinus tachycardia no longer present Electronically Signed On 07-30-2021 12:10:07 TOOL FILER HAND by Hattie Iyer M.D. [id number] f
[2021-07-29 20:08] VITALS: BP 169/76; PULSE 71; RESP 18; TEMP 37; O2SAT 99; BMI 40.3
--- NOTE | 2021-07-29 20:32 | CTR_ITS ---
PROCEDURE INFORMATION: Exam: CT Head Without Contrast Exam date and time: 07/29/2021 8:32 PM Age: 61 years old Clinical indication: Dizziness TECHNIQUE: Imaging protocol: Computed tomography of the head without contrast. Radiation optimization: All CT scans at this facility use at least one of these dose optimization techniques: automated exposure control; mA and/or kV adjustment per patient size (includes targeted exams where dose is matched to clinical indication); or iterative reconstruction. COMPARISON: MR head wo con* [id number] 10/29/2020 2:04 PM RADIATION DOSE METRICS: Total DLP (mGy-cm): 830.05 FINDINGS: Brain: The sulci are within normal limits. Moderate hypodensities in supratentorial periventricular and subcortical white matter, consistent with microangiopathy. No intracranial hemorrhage. Cerebral ventricles: No ventriculomegaly. Paranasal sinuses: Visualized sinuses are unremarkable. No fluid levels. Mastoid air cells: Visualized mastoid air cells are well aerated. Orbital cavity: Prior cataract surgery. Left scleral banding. Vasculature: No hyperdense artery. Bones/joints: Unremarkable. No acute fracture. Soft tissues: Unremarkable. CT/CT head wo con* [id number] IMPRESSION: 1. No acute intracranial abnormality. Radiation Dose CTDIVOL = (mGy): DLP = 830.05 (mGy-cm)
--- NOTE | 2021-07-29 20:34 | ED_ITS ---
HPI - Dizziness General: Chief Complaint: Dizziness Stated Complaint: High Blood sugar, Light headed, dizzy Time Seen by Provider: 07/29/21 20:32 History of Present Illness: HPI Narrative: 61-year-old female comes in today with complaints of increased blood sugar, feeling malaise, and lightheadedness. Patient reports that she has had a recurrent urinary tract infection which has seemed to aggravate her glucose control. Patient uses long-acting insulin 50 units twice a day, and 18 units of NovoLog with each meal. Patient appears mildly unwell but not toxic. Patient is alert and oriented. Patient has history of recurrent urinary tract infection, coronary artery disease, cerebrovascular disease, COPD, Review of Systems General: Reports: 10 or more systems reviewed and unremarkable except in HPI and below Neuro: Reports: dizziness PFSH ED PFSH: Medical History Bilateral kidney stones Calcium urolithiasis Cardiac arrest Carpal tunnel syndrome of left wrist Chronic pain COPD (chronic obstructive pulmonary disease) History of colon cancer Hyperlipidemia Hypertension Incontinence Insulin dependent type 2 diabetes mellitus Internal carotid artery stenosis Multiple sclerosis Diagnosed in 2014 Patella fracture Recurrent urinary tract infection Surgical History History of appendectomy History of cholecystectomy History of colon resection COLON CANCER History of tonsillectomy Hx of adenoidectomy Hx of detached retina repair S/P extracorporeal shock wave therapy LEFT URETERAL STENT PLACEMENT Family History Father Parkinsons disease Mother Parkinsons disease Other CAD (coronary artery disease) Social History Smoking and tobacco status: current some day smoker Alcohol intake: never Adopted: No Caregiver/support person: No Lives independently: No Household members: spouse Marital status: Current occupational status: disabled History of recent travel: No Current gender identity: Female Physical Exam Const: COMMON NORMALS: no acute distress and patient oriented x3 GENERAL APPEARANCE: cooperative HENMT: COMMON NORMALS: normocephalic, TM's normal bilaterally and Normal external nose present HEAD & SCALP: normal to inspection and normocephalic NOSE: Normal external nose present TYMPANIC MEMBRANE: TM's normal bilaterally MOUTH: Normal oral and palatal mucosa present THROAT: posterior oropharynx normal Eye: GENERAL EYE: appearance normal, both eyes and all related structures Neck/C-Spine: COMMON NORMALS: full ROM Chest: COMMONS NORMALS: normal inspection of the chest Resp: COMMON NORMALS: normal respiratory effort EFFORT & INSPECTION: Yes able to speak in complete sentences Cardio: COMMON NORMALS: regular rate and regular rhythm RATE: regular rate RHYTHM: regular rhythm GI: COMMON NORMALS: Soft to palpation and non-tender AUSCULTATION: Yes normoactive bowel sounds PALPATION: Yes Soft to palpation Back/Pelvis: COMMON NORMALS: thoracic and lumbar spine normal to inspection Extremity: COMMON NORMALS: normal to inspection Neuro: COMMON NORMALS: patient oriented x3 and moves all extremities Psych: COMMON NORMALS: mental status grossly normal and cooperative Skin: COMMON NORMALS: no rashes or lesions noted GENERAL SKIN EXAM: no rashes or lesions noted Course ED course: 2199, reviewed patient with Dr. Haynes he agreed with plan at this time. We are repeating the troponin. Metabolic panel suggests some dehydration and hyperglycemia. We will infuse a total of 2 L of IV fluids and monitor blood sugar. Plan to adjust basal insulin to 60 units twice a day from 50 units twice a day. And continue with sliding scale as directed. Vital Signs: Vital signs: Vital Signs Temperature 98.6 F 07/29/21 20:08 Pulse Rate 71 07/29/21 20:08 Respiratory Rate 18 07/29/21 20:08 Blood Pressure 169/76 07/29/21 20:08 Pulse Oximetry 99 07/29/21 20:08 MDM - Dizziness MDM Narrative: Medical decision making narrative: 61-year-old female comes in today with complaints of weakness and dizziness. On exam patient appears well. Patient appears no acute distress. Patient does have a resting tremor. Patient has a history of multiple small strokes as states, CAD, and type 2 diabetes controlled with insulin. Patient is alert and oriented. NIH scale is 0. Lungs are clear to auscultation. No edema is noted in the extremities. Oral mucosa is dry. Blood glucose was 486. Vital signs were normal except for some mild elevation in blood pressure by 169 systolic. Differential diagnosis includes but not limited to diabetic ketoacidosis, hyperglycemia, urinary tract infection, ACS. EKG showed a sinus rhythm without any ST elevation. Troponins were unchanged at 2-hour snow. CBC notes a white count of 12,000. CMP had a 130 sodium and 1.5 creatinine. The creatinine has ranged from 1.0 in January. Patient was treated with IV insulin to get blood sugar down to below 300. Patient was also infused 2 L IV fluid. Recommended patient increase basal insulin to 60 units twice a day. And continue with sliding scale insulin. Recommended patient follow-up with primary care in 1 week for recheck of blood sugars and and to document routine Accu-Cheks. Patient reported understanding and agreed to plan. Patient had improvement of symptoms after 2 L IV fluid. Lab Data: Labs: Lab Results 07/29/21 07/29/21 07/29/21 20:10 20:30 20:30 WBC 12.3 10^3/uL H 10 ^3/uL (4.0-10.0) RBC 4.61 10^6/uL 10^6 /uL (4.1-5.3) Hgb 13.5 g/dL g/dL (11.5-15.3) Hct 39.7 % % (37.0-47.0) MCV 86.1 fl fl (81-99) MCH 29.3 pg pg (28.0-34.0) MCHC 34.0 g/dL g/dL (30.0-36.0) RDW 13.9 % % (12.1-15.1) Plt Count 244 10^3/cmm 10^3 /cmm (130-400) MPV 10.5 fL H fL (7.4-10.4) Neut % (Auto) 60.7 % % Lymph % (Auto) 29.2 % % [place] % (Auto) 5.5 % % Eos % (Auto) 3.0 % % Baso % (Auto) 1.0 % % Neut # (Auto) 7.44 10^3/uL 10^3 /uL (1.8-7.7) Lymph # (Auto) 3.6 10^3/uL 10^3/ uL (0.8-4.8) [place] # (Auto) 0.7 10^3/uL 10^3/ uL (0.2-0.9) Eos # (Auto) 0.4 10^3/uL 10^3/ uL (0.0-0.8) Baso # (Auto) 0.1 10^3/uL 10^3/ uL (0.0-0.1) Nucleated RBC % (a uto) 0 % % Nucleated RBCs # 0.0 /100WBC /100W BC Sodium 130 mmol/L L mmol /L (136-145) Potassium 4.3 mmol/L mmol/L (3.5-5.1) Chloride 92 mmol/L L mmol/ L (98-107) Carbon Dioxide 23 mmol/L mmol/L (22-29) Anion Gap 19.3 H (5-19) BUN 15 mg/dL mg/dL (8-23) Creatinine 1.5 mg/dL H mg/dL (0.5-0.9) GFR Calculation 35.2 mL/min L mL/ min (90-130) Glucose 486 mg/dL H mg/dL (65-115) Calculated Osmolal ity 292 mOsm/kg mOsm/ kg (285-295) Calcium 8.9 mg/dL mg/dL (8.5-10.5) Total Bilirubin 0.2 mg/dL mg/dL (0.15-1.2) AST 11 U/L U/L (0-32) ALT 16 U/L U/L (0-33) Alkaline Phosphata se 166 IU/L H IU/L (35-105) Troponin T Baselin e Troponin T 120 Min [place] 16.64 ng/L H ng/L (0-10) Delta Troponin T 0.64 ABS# ABS# (0-10) Total Protein 7.4 g/dL g/dL (6.6-8.7) Albumin 3.4 g/dL L g/dL (3.5-5.2) Globulin 4.0 g/dL g/dL (1.3-4.6) Urine Color Urine Appearance Urine pH Ur Specific Gravit y Urine Protein Urine Glucose (UA) Urine Ketones Urine Blood Urine Nitrate Urine Bilirubin Urine Urobilinogen Ur Leukocyte Kenzie ase Serum Ketones 07/29/21 07/29/21 07/29/21 20:30 20:35 21:22 WBC RBC Hgb Hct MCV MCH MCHC RDW Plt Count MPV Neut % (Auto) Lymph % (Auto) [place] % (Auto) Eos % (Auto) Baso % (Auto) Neut # (Auto) Lymph # (Auto) [place] # (Auto) Eos # (Auto) Baso # (Auto) Nucleated RBC % (a uto) Nucleated RBCs # Sodium Potassium Chloride Carbon Dioxide Anion Gap BUN Creatinine GFR Calculation Glucose Calculated Osmolal ity Calcium Total Bilirubin AST ALT Alkaline Phosphata se Troponin T Baselin e 16 ng/L H ng/L (0-10) Troponin T 120 Min [place] Delta Troponin T Total Protein Albumin Globulin Urine Color Yellow (Yellow) Urine Appearance Clear (CLEAR) Urine pH 7 (5-7) Ur Specific Gravit y 1.005 (1.005-1.030) Urine Protein Neg (Negative) Urine Glucose (UA) 4+ H (Normal) Urine Ketones Negative (Negative) Urine Blood Neg (Negative) Urine Nitrate Negative (Negative) Urine Bilirubin Neg (Negative) Urine Urobilinogen Neg mg/dL mg/dL (Negative) Ur Leukocyte Kenzie ase Negative (Negative) Serum Ketones Negative (Negative) EKG Data^: EKG 1: Attestation: I personally reviewed and interpreted this EKG as follows: (2049, EKG shows a sinus rhythm with a regular rate at 70 bpm, no ST elevation or ectopy is noted, computer reads a first-degree AV block. No prior exam is available for comparison.) EKG 2: Attestation: I personally reviewed and interpreted this EKG as follows: (2199, EKG continues to show a regular rate sinus rhythm with first-degree AV block. No significant change from prior exam.) Discharge Plan Discharge Patient Disposition: Home Clinical Impression: Hyperglycemia due to diabetes mellitus Condition: Stable Prescriptions: No Action cyanocobalamin (vitamin B-12) 1,000 mcg capsule 1,000 mcg PO DAILY RF: 0 isosorbide mononitrate 30 mg tablet extended release 24 hr 30 mg PO DAILY RF: 0 calcium carbonate 500 mg calcium (1,250 mg) tablet,chewable 500 mg PO DAILY RF: 0 albuterol sulfate 90 mcg/actuation HFA aerosol inhaler 2 puff INHALATION Q6H PRN (Reason: Respiratory Distress) RF: 0 Spiriva with HandiHaler 18 mcg capsule, w/inhalation device 1 cap INHALATION DAILY RF: 0 Symbicort 160-4.5 mcg/actuation HFA aerosol inhaler 2 puff INHALATION BID RF: 0 aripiprazole [Abilify] 10 mg tablet 10 mg PO QDAY RF: 0 Soliqua 100/33 100 unit-33 mcg/mL insulin pen 45 unit SUBCUT DAILY RF: 0 potassium chloride 10 mEq capsule, extended release 10 meq PO DAILY RF: 0 atorvastatin 80 mg tablet 80 mg PO DAILY RF: 0 ergocalciferol (vitamin D2) 50,000 unit capsule 50,000 unit PO DAILY RF: 0 furosemide 40 mg tablet 40 mg PO DAILY RF: 0 vilazodone 40 mg tablet 40 mg PO DAILY RF: 0 promethazine 25 mg tablet 25 mg PO Q6H PRN (Reason: Nausea) RF: 0 (DME) WALKER See Rx Instructions .Route .MEDSUPPLY Qty: 1 RF: 0 propranolol 10 mg tablet 10 mg PO TID Qty: 90 RF: 0 lisinopril 20 mg Tablet 20 mg PO BID Qty: 60 RF: 0 Hold Instructions: hypotension hydralazine 25 mg Tablet 25 mg PO TID Qty: 90 RF: 0 Hold Instructions: hypotension aspirin 81 mg Tablet,Delayed Release (Dr/Ec) 162 mg PO DAILY Qty: 60 RF: 0 spironolactone 25 mg Tablet 25 mg PO DAILY Qty: 30 RF: 0 amlodipine 10 mg Tablet 10 mg PO DAILY Qty: 30 RF: 0 Hold Instructions: hypotension levofloxacin 750 mg Tablet 750 mg PO DAILY@0600 Qty: 3 RF: 0 metoprolol tartrate 25 mg Tablet 12.5 mg PO BID@0900,2100 Qty: 30 RF: 0 Protonix 40 mg tablet,delayed release (DR/EC) 40 mg PO BID Qty: 60 RF: 0 ondansetron 4 mg tablet,disintegrating 4 mg PO Q6H PRN (Reason: nausea and vomiting) Qty: 14 RF: 0 Discharge Orders: Discharge ED (Routine); Ordered 07/29/21 Ordered By: Michael Haley Referrals: Leah Millard DO [Primary Care Provider] - Discharge Diet: Usual diet Discharge Activity: Increase activity as tolerated Patient Instructions: Diabetic Hyperglycemia (ED), Opioid Safety Activity Restrictions/Additional Instructions: Increase long-acting insulin to 60 units twice a day. Continue with sliding scale as directed. Make sure to drink plenty of water. Follow-up with primary care in 1 week. Return to the ER for high fever greater than 100.4, or new concerns. Coding Level of Care Code ED Manager Research Development for Chg Fwd Exam Comprehensive
[2021-07-29] MEDS: sodium chloride 0.9% 1,000 ML 999 ML IV ×2 (20:41→23:25)
[2021-07-29] MEDS: ondansetron 2 mg/ML SDV 2 mL 4 MG IVP (20:41)
[2021-07-29 20:54] LABS: Basophils # 0.1 10^3/uL (0.0-0.1); Eosinophils # 0.4 10^3/uL (0.0-0.8); Hematocrit 39.7 % (37.0-47.0); Hemoglobin 13.5 g/dL (11.5-15.3); Lymphocytes # 3.6 10^3/uL (0.8-4.8); Lymphocytes % 29.2 %; Mean Corpuscular Hemoglobin 29.3 pg (28.0-34.0); Mean Corpuscular Volume 86.1 fl (81-99); Mean Platelet Volume 10.5 fL (7.4-10.4); Monocytes # 0.7 10^3/uL (0.2-0.9); Monocytes % 5.5 %; Neutrophils # 7.44 10^3/uL (1.8-7.7); Neutrophils % 60.7 %; Nucleated Red Blood Cells % 0 %; Platelet Count 244 10^3/cmm (130-400); Red Blood Count 4.61 10^6/uL (4.1-5.3); Red Cell Distribution Width 13.9 % (12.1-15.1); White Blood Count 12.3 10^3/uL (4.0-10.0)
--- NOTE | 2021-07-29 21:04 | ECG_ITS ---
[facility] Test Date: 2021-07-29 Pat Name: Melissa Kinney Department: Room: Gender: Female Extruder Tender: : 1960 Requested By: Michael Chapa Order Number: [id number] Rambo MD: Hattie Iyer M.D. Measurements Intervals [place] Rate: 65 P: 50 [place]: 218 QRS: 29 QRSD: 85 T: 52 QT: 388 QTc: 406 Interpretive Statements SINUS RHYTHM WITH FIRST DEGREE AV BLOCK Compared to ECG 07/29/2021 20:31:16 No significant changes Electronically Signed On 07-30-2021 12:54:47 ENERGY MANAGER by Hattie Iyer M.D. [id number]
[2021-07-29 21:07] LABS: Ketone (Acetest) Serum Negative (Negative)
[2021-07-29 21:10] LABS: Alanine Aminotransferase 16 U/L (0-33); Albumin Level 3.4 g/dL (3.5-5.2); Alkaline Phosphatase 166 IU/L (35-105); Anion Gap 19.3 (5-19); Aspartate Amino Transferase 11 U/L (0-32); Blood Urea Nitrogen 15 mg/dL (8-23); Calcium 8.9 mg/dL (8.5-10.5); Carbon Dioxide 23 mmol/L (22-29); Chloride 92 mmol/L (98-107); Glomerular Filtration Rate 35.2 mL/min (90-130); Glucose 486 mg/dL (65-115); Osmolality Calculated 292 mOsm/kg (285-295); Potassium 4.3 mmol/L (3.5-5.1); Sodium 130 mmol/L (136-145); Total Bilirubin 0.2 mg/dL (0.15-1.2); Total Protein 7.4 g/dL (6.6-8.7)
[2021-07-29 21:13] LABS: Troponin(5th) Baseline 16 ng/L (0-10)
[2021-07-29] MEDS: insulin regular-human 100 units/1 mL 10 UNIT IVP ×2 (21:31→23:25)
[2021-07-29 21:33] LABS: Add Urine Microscopic? NO; Charge for UA Resulting for Rev
[2021-07-29 21:48] LABS: Protein Urine Neg (Negative); Specific Gravity, Urine 1.005 (1.005-1.030); Urine Appearance Clear (CLEAR); Urine Color Yellow (Yellow); pH Urine 7 (5-7)
[2021-07-29 21:49] LABS: Bilirubin Urine Neg (Negative); Blood Urine Neg (Negative); Glucose Urine UA 4+ (Normal); Ketones Urine Negative (Negative); Leukocyte Esterase Urine Negative (Negative); Nitrate Urine Negative (Negative); Urobilinogen Urine Neg (Negative)
[2021-07-29 22:59] LABS: Troponin 5 2HR 16.64 ng/L (0-10)
[2021-07-29 23:04] LABS: Troponin 5 2HR Delta 0.64 ABS# (0-10)
[2021-07-29 23:32] VITALS: BP 128/56; O2SAT 91
[2021-07-29 23:45] LABS: Glucose Point of Care 505 mg/dL (70-110)
[2021-07-30 13:01] LABS: Glucose Point of Care 367 mg/dL (70-110)
== END 2021-07-29 23:55 | disposition home or self-care (01) ==
PROVIDERS: Emergency Provider Nurse Practitioner Family; PCP Family Medicine
DX: E11.65 Type 2 diabetes mellitus with hyperglycemia (principal); Z79.82 Long term (current) use of aspirin; Z79.4 Long term (current) use of insulin; J44.9 Chronic obstructive pulmonary disease, unspecified; Z85.038 Personal history of other malignant neoplasm of large intestine; E78.5 Hyperlipidemia, unspecified; I10 Essential (primary) hypertension; G35 Multiple sclerosis; F17.210 Nicotine dependence, cigarettes, uncomplicated; I25.10 Atherosclerotic heart disease of native coronary artery without angina pectoris; Z86.73 Personal history of transient ischemic attack (TIA), and cerebral infarction without residual deficits
CPT/HCPCS: 36416; 70450; 80053; 81003; 82009; 82962; 84484; 85025; 93005; 96361; 96374; 96375; 96376; 99284; J1815; J2405; J7030

== ENCOUNTER 2021-08-14 12:03 | Outpatient (CLI) | payer OTHER, MEDICAID, SELFPAY ==
--- NOTE | 2021-08-14 12:19 | XR_ITS ---
WS: [id number] KUB, AP view, 08/14/2021 Clinical Data: BILATERAL KIDNEY STONES Comparison: KUB, 10/04/2019. Findings: No abnormal intraabdominal masses are seen. There is no dilatated small bowel or evidence of obstruct ion. There are bilateral renal calcifications. The largest right renal calcification now measures 2.1 cm. There are phleboliths in the true pelvis. The bladder is full. Vascular calcifications are present. T here is a large amount of fecal material throughout the colon. XR/XR KUB [id number] Impression: Bilateral renal calculi.
== END 2021-08-14 12:04 | disposition home or self-care (01) ==
PROVIDERS: PCP Family Medicine; Visit Provider Nurse Practitioner Family
DX: N20.0 Calculus of kidney (principal)
CPT/HCPCS: 74018; 81003

== ENCOUNTER → 2021-08-20 08:14 | Outpatient (BNVA) | payer OTHER, MEDICAID, SELFPAY | PROVIDERS: PCP Family Medicine; Visit Provider Internal Medicine | DX: E11.9 Type 2 diabetes mellitus without complications (principal); E78.5 Hyperlipidemia, unspecified; I10 Essential (primary) hypertension; I25.10 Atherosclerotic heart disease of native coronary artery without angina pectoris; Z86.73 Personal history of transient ischemic attack (TIA), and cerebral infarction without residual deficits; Z79.4 Long term (current) use of insulin; Z87.891 Personal history of nicotine dependence | CPT/HCPCS: 99204 ==

== ENCOUNTER → 2021-09-17 08:17 | Outpatient (BNVA) | payer OTHER, MEDICAID, SELFPAY | PROVIDERS: PCP Family Medicine; Visit Provider Internal Medicine | DX: E11.59 Type 2 diabetes mellitus with other circulatory complications (principal); I25.10 Atherosclerotic heart disease of native coronary artery without angina pectoris; E78.5 Hyperlipidemia, unspecified; Z86.73 Personal history of transient ischemic attack (TIA), and cerebral infarction without residual deficits; Z87.891 Personal history of nicotine dependence; Z79.4 Long term (current) use of insulin | CPT/HCPCS: 99214 ==

== ENCOUNTER → 2021-09-26 10:53 | Outpatient (BNVA) | payer OTHER, MEDICAID, SELFPAY | PROVIDERS: PCP Family Medicine; Visit Provider Nurse Practitioner Family | DX: N39.0 Urinary tract infection, site not specified (principal); N20.0 Calculus of kidney | CPT/HCPCS: 81003; 87077; 87086; 87184 ==

== ENCOUNTER → 2021-10-23 08:23 | Outpatient (BNVA) | payer OTHER, MEDICAID, SELFPAY | PROVIDERS: PCP Family Medicine; Visit Provider Internal Medicine | DX: E11.59 Type 2 diabetes mellitus with other circulatory complications (principal); I25.10 Atherosclerotic heart disease of native coronary artery without angina pectoris; I50.9 Heart failure, unspecified; Z86.73 Personal history of transient ischemic attack (TIA), and cerebral infarction without residual deficits; E78.5 Hyperlipidemia, unspecified; Z79.4 Long term (current) use of insulin; Z87.891 Personal history of nicotine dependence | CPT/HCPCS: 99214 ==

== ENCOUNTER → 2021-12-31 08:48 | Outpatient (BNVA) | payer OTHER, MEDICAID, SELFPAY | PROVIDERS: PCP Family Medicine; Visit Provider Internal Medicine | DX: E11.59 Type 2 diabetes mellitus with other circulatory complications (principal); I25.10 Atherosclerotic heart disease of native coronary artery without angina pectoris; Z79.4 Long term (current) use of insulin; Z87.891 Personal history of nicotine dependence | CPT/HCPCS: 99214 ==

== ENCOUNTER → 2022-02-18 10:22 | Outpatient (BNVA) | payer OTHER, MEDICAID, SELFPAY | PROVIDERS: PCP Family Medicine; Visit Provider Internal Medicine | DX: E11.59 Type 2 diabetes mellitus with other circulatory complications (principal); I25.10 Atherosclerotic heart disease of native coronary artery without angina pectoris; E78.5 Hyperlipidemia, unspecified; Z79.4 Long term (current) use of insulin; Z87.891 Personal history of nicotine dependence | CPT/HCPCS: 99214 ==

== ENCOUNTER 2022-03-10 07:01 | Outpatient (CLI) | payer OTHER, MEDICAID, SELFPAY ==
--- NOTE | 2022-03-10 07:30 | XR_ITS ---
WS: [email or web address] XR KUB [id number] REASON FOR EXAM: STONES FINDINGS: Multiple large and small calculi overlying the right kidney unchanged compared to the previous examin ation of 08/14/2021. The calculus seen overlying the left kidney on the previous examination is no longer identifiable. No other significant interval change compared to the previous study is identified. No acute abnormality is identified. XR/XR KUB [id number] IMPRESSION: Stable right renal calculi. Previous left renal calculus no longer identifiable.
== END 2022-03-10 07:02 | disposition home or self-care (01) ==
LOC: RAD 07:02
PROVIDERS: PCP Family Medicine; Visit Provider Nurse Practitioner Family
DX: N20.0 Calculus of kidney (principal); N39.0 Urinary tract infection, site not specified; R31.0 Gross hematuria
CPT/HCPCS: 74018; 81003; 87086; 99213; 99214

== ENCOUNTER → 2022-04-02 08:45 | Outpatient (BNVA) | payer OTHER, MEDICAID, SELFPAY | PROVIDERS: PCP Family Medicine; Visit Provider Internal Medicine | DX: E11.59 Type 2 diabetes mellitus with other circulatory complications (principal); I25.10 Atherosclerotic heart disease of native coronary artery without angina pectoris; E78.2 Mixed hyperlipidemia; Z79.4 Long term (current) use of insulin; Z87.891 Personal history of nicotine dependence | CPT/HCPCS: 99214 ==

== ENCOUNTER 2022-06-10 08:11 | Outpatient (CLI) | payer OTHER, MEDICAID, SELFPAY ==
--- NOTE | 2022-06-10 08:24 | XR_ITS ---
WS: [id number] Exam: XR KUB [id number] Date/Time of Exam: 06/10/2022 8:24 AM Reason For Exam: kidney stones Comparison 03/10/2022. No bowel obstruction or free air. Marked stool retention throughout the colon. Calcifications superim pose both renal silhouettes and apparently represent known renal stones. No sign of organ enlargement . Aortoiliac atherosclerosis. Bony changes to suggest diffuse idiopathic skeletal hyperostosis. XR/XR KUB [id number] IMPRESSION: 1. No acute abdominal process. 2. Marked constipation. 3. Calcifications superimposing both kidneys apparently representing known asad l stones.
== END 2022-06-10 08:12 | disposition home or self-care (01) ==
LOC: RAD 08:14
PROVIDERS: PCP Family Medicine; Visit Provider Urology
DX: R31.0 Gross hematuria (principal); N20.0 Calculus of kidney; N30.20 Other chronic cystitis without hematuria
CPT/HCPCS: 74018; 99213

== ENCOUNTER → 2022-06-11 15:50 | Outpatient (BNVA) | payer OTHER, MEDICAID, SELFPAY | PROVIDERS: PCP Family Medicine; Visit Provider Urology | DX: N39.0 Urinary tract infection, site not specified (principal) | CPT/HCPCS: 81003 ==

== ENCOUNTER → 2022-06-30 08:31 | Outpatient (BNVA) | payer OTHER, MEDICAID, SELFPAY | PROVIDERS: PCP Family Medicine; Visit Provider Internal Medicine | DX: E11.59 Type 2 diabetes mellitus with other circulatory complications (principal); E78.5 Hyperlipidemia, unspecified; I10 Essential (primary) hypertension; E78.2 Mixed hyperlipidemia; I25.10 Atherosclerotic heart disease of native coronary artery without angina pectoris; Z79.4 Long term (current) use of insulin | CPT/HCPCS: 99214 ==

== ENCOUNTER → 2022-08-26 12:58 | Outpatient (BNVA) | payer OTHER, MEDICAID, SELFPAY | PROVIDERS: PCP Family Medicine; Visit Provider Internal Medicine | DX: I46.9 Cardiac arrest, cause unspecified (principal); I10 Essential (primary) hypertension; E78.2 Mixed hyperlipidemia; E11.9 Type 2 diabetes mellitus without complications; Z79.4 Long term (current) use of insulin; I25.10 Atherosclerotic heart disease of native coronary artery without angina pectoris | CPT/HCPCS: 99213 ==

== ENCOUNTER 2022-09-30 10:14 | Outpatient (CLI) | payer OTHER, MEDICAID, SELFPAY ==
[2022-09-30 11:14] LABS: Alanine Aminotransferase 18 U/L (0-33); Albumin Level 3.5 g/dL (3.5-5.2); Alkaline Phosphatase 150 U/L (35-105); Anion Gap 14.3 (5-19); Aspartate Amino Transferase 30 U/L (0-32); Blood Urea Nitrogen 11 mg/dL (8-23); Carbon Dioxide 29 mmol/L (22-29); Chloride 97 mmol/L (98-107); Chol HDL Ratio 4.15 mg/dL (0.0-4.40); Cholesterol 141 mg/dL (0-200); Glomerular Filtration Rate 63.2 mL/min (90-130); Glucose 206 mg/dL (65-115); HDL Cholesterol 34 mg/dL (60-100); LDL Cholesterol Calculated 75 mg/dL (50-129); LDL HDL Ratio 2.21 RATIO (0.00-3.22); Osmolality Calculated 287 mOsm/kg (285-295); Potassium 4.3 mmol/L (3.5-5.1); Sodium 136 mmol/L (136-145); Total Bilirubin 0.3 mg/dL (0.15-1.2); Total Protein 7.5 g/dL (6.6-8.7); Triglycerides 160 mg/dL (0-150)
[2022-09-30 11:18] LABS: Estmated Average Glucose 303; Hemoglobin A1C 12.2 % (4.0-6.0)
== END 2022-09-30 10:15 | disposition home or self-care (01) ==
LOC: LAB 10:19
PROVIDERS: PCP Family Medicine; Visit Provider Internal Medicine
DX: E11.9 Type 2 diabetes mellitus without complications (principal); E78.5 Hyperlipidemia, unspecified; I10 Essential (primary) hypertension; Z79.4 Long term (current) use of insulin; E78.2 Mixed hyperlipidemia; I25.10 Atherosclerotic heart disease of native coronary artery without angina pectoris
CPT/HCPCS: 36415; 80053; 80061; 83036; 99214

== ENCOUNTER 2022-11-10 16:14 | Outpatient (CLI) | payer OTHER, MEDICAID, SELFPAY ==
--- NOTE | 2022-11-10 16:37 | XR_ITS ---
WS: [id number] Lumbar spine, 3 views, 11/10/2022 Clinical Data: CHRONIC LOW BACK PAIN Comparison: Lumbar spine, 02/20/2014 Findings: No compression fractures or subluxation is seen. There is degenerative disc narrowing at L5-S1. There is osteophyte formation L1-L5.. The transverse processes and SI joints are normal. There are several right renal calcifications, the largest 2.0 cm. Vascular calcification is present b ut no aortic aneurysm is seen. There are injection granulomas in the buttocks. XR/XR lumbar spine 2-3V* [id number] Impression: 1. Degenerative disc narrowing L5-S1. 2. Multilevel osteophytes L1-L5. 3. Large right renal calcifications.
== END 2022-11-10 16:15 | disposition home or self-care (01) ==
PROVIDERS: PCP Family Medicine; Visit Provider Family Medicine
DX: M54.50 Low back pain, unspecified (principal); G89.29 Other chronic pain; M25.78 Osteophyte, vertebrae; N20.0 Calculus of kidney
CPT/HCPCS: 72100

== ENCOUNTER 2022-12-24 14:18 | Outpatient (CLI) | payer OTHER, MEDICAID, SELFPAY ==
[2022-12-24 16:10] LABS: Alanine Aminotransferase 16 U/L (0-33); Albumin Level 3.3 g/dL (3.5-5.2); Alkaline Phosphatase 123 U/L (35-105); Anion Gap 13.5 (5-19); Aspartate Amino Transferase 25 U/L (0-32); Blood Urea Nitrogen 10 mg/dL (8-23); Carbon Dioxide 28 mmol/L (22-29); Chloride 98 mmol/L (98-107); Chol HDL Ratio 3.74 mg/dL (0.0-4.40); Cholesterol 131 mg/dL (0-200); Globulin 4.3 g/dL (1.3-4.6); Glucose 205 mg/dL (65-115); HDL Cholesterol 35 mg/dL (60-100); LDL Cholesterol Calculated 71 mg/dL (50-129); LDL HDL Ratio 2.03 RATIO (0.00-3.22); Osmolality Calculated 285 mOsm/kg (285-295); Potassium 4.5 mmol/L (3.5-5.1); Sodium 135 mmol/L (136-145); Total Bilirubin 0.4 mg/dL (0.15-1.2); Total Protein 7.6 g/dL (6.6-8.7); Triglycerides 125 mg/dL (0-150)
[2022-12-24 16:16] LABS: Estmated Average Glucose 263; Hemoglobin A1C 10.8 % (4.0-6.0)
[2022-12-24 16:32] LABS: Creatinine Urine, Random 34 mg/dL (28-217); Microalbum Creatinine Ratio Ur 29 mg/dL (0-20); Microalbumin Random Urine 1 ug/dL (0-20)
== END 2022-12-24 14:19 | disposition home or self-care (01) ==
PROVIDERS: PCP Family Medicine; Visit Provider Internal Medicine
DX: Z79.4 Long term (current) use of insulin; E78.2 Mixed hyperlipidemia; E11.59 Type 2 diabetes mellitus with other circulatory complications; E78.5 Hyperlipidemia, unspecified; I25.10 Atherosclerotic heart disease of native coronary artery without angina pectoris
CPT/HCPCS: 36415; 80053; 80061; 82044; 83036; 99214

== ENCOUNTER → 2023-05-26 12:53 | Outpatient (BNVA) | payer OTHER, MEDICAID, SELFPAY | PROVIDERS: PCP Family Medicine; Visit Provider Internal Medicine | DX: I10 Essential (primary) hypertension (principal); E78.2 Mixed hyperlipidemia; E11.9 Type 2 diabetes mellitus without complications; Z79.4 Long term (current) use of insulin; I25.10 Atherosclerotic heart disease of native coronary artery without angina pectoris; Z86.74 Personal history of sudden cardiac arrest | CPT/HCPCS: 36415; 80048; 83880; 99214 ==

== ENCOUNTER 2023-06-23 12:41 | Outpatient (CLI) | payer OTHER, MEDICAID, SELFPAY ==
[2023-06-23 13:44] LABS: Creatinine Urine, Random 18 mg/dL (28-217); Microalbumin Random Urine 1 ug/dL (0-20)
[2023-06-23 13:48] LABS: Microalbum Creatinine Ratio Ur 56 mg/dL (0-20)
[2023-06-23 13:50] LABS: Estmated Average Glucose 214; Hemoglobin A1C 9.1 % (4.0-6.0)
[2023-06-23 13:55] LABS: Alanine Aminotransferase 15 U/L (0-33); Albumin Level 3.5 g/dL (3.5-5.2); Alkaline Phosphatase 132 U/L (35-105); Anion Gap 11.4 (5-19); Aspartate Amino Transferase 24 U/L (0-32); Blood Urea Nitrogen 13 mg/dL (8-23); Calcium 8.8 mg/dL (8.5-10.5); Carbon Dioxide 34 mmol/L (22-29); Chloride 97 mmol/L (98-107); Chol HDL Ratio 3.97 mg/dL (0.0-4.40); Cholesterol 143 mg/dL (0-200); Globulin 3.6 g/dL (1.3-4.6); Glucose 155 mg/dL (65-115); HDL Cholesterol 36 mg/dL (60-100); LDL Cholesterol Calculated 82 mg/dL (50-129); LDL HDL Ratio 2.28 RATIO (0.00-3.22); Osmolality Calculated 289 mOsm/kg (285-295); Potassium 4.4 mmol/L (3.5-5.1); Sodium 138 mmol/L (136-145); Total Bilirubin 0.4 mg/dL (0.15-1.2); Total Protein 7.1 g/dL (6.6-8.7); Triglycerides 127 mg/dL (0-150)
== END 2023-06-23 12:42 | disposition home or self-care (01) ==
LOC: LAB 12:42
PROVIDERS: PCP Family Medicine; Visit Provider Internal Medicine
DX: E11.9 Type 2 diabetes mellitus without complications (principal); E78.5 Hyperlipidemia, unspecified; Z79.4 Long term (current) use of insulin; E78.2 Mixed hyperlipidemia
CPT/HCPCS: 36415; 80053; 80061; 82044; 83036

== ENCOUNTER → 2023-06-24 09:46 | Outpatient (BNVA) | payer OTHER, MEDICAID, SELFPAY | PROVIDERS: PCP Family Medicine; Visit Provider Internal Medicine | DX: E11.59 Type 2 diabetes mellitus with other circulatory complications (principal); I25.10 Atherosclerotic heart disease of native coronary artery without angina pectoris; Z79.4 Long term (current) use of insulin; E78.2 Mixed hyperlipidemia; E66.01 Morbid (severe) obesity due to excess calories; Z68.42 Body mass index [BMI] 45.0-49.9, adult | CPT/HCPCS: 99214 ==

== ENCOUNTER 2023-08-02 10:25 | Emergency (ER) | payer OTHER, MEDICAID, SELFPAY ==
[2023-08-02] VITALS (8 sets, daily range): BP systolic 144–200; BP diastolic 61–97; PULSE 81–88; RESP 18–19; TEMP 37.4; O2SAT 91–99; BMI 47.6
--- NOTE | 2023-08-02 10:37 | XRR_ITS ---
PROCEDURE INFORMATION: Exam: XR Right Hip Exam date and time: 08/02/2023 10:50 AM Age: 63 years old Clinical indication: Injury or trauma; Fall; Blunt trauma (contusions or hematomas); Right; Hip; Additional info: Trauma, hip and pelvis TECHNIQUE: Imaging protocol: Radiologic exam of the right hip. Views: 1 view hip with pelvis when performed. AP and frog-leg lateral right hip COMPARISON: CT abdomen pelvis w con* [id number] 10/30/2020 9:53 AM FINDINGS: Bones/joints: There is no acute fracture identified. Moderate degenerative changes are present primarily involving the lateral right acetabular roof, similar to 10/30/2020. Soft tissues: Soft tissues demonstrate vascular calcifications and small injection granulomata. XR/XR hip RT 2-3V wo/w pel* [id number] IMPRESSION: No acute fracture identified.
--- NOTE | 2023-08-02 10:42 | XRR_ITS ---
PROCEDURE INFORMATION: Exam: XR Right Knee Exam date and time: 08/02/2023 10:55 AM Age: 63 years old Clinical indication: Injury or trauma; Fall; Blunt trauma; Knee; Right TECHNIQUE: Imaging protocol: Radiologic exam of the right knee. Views: 3 views. COMPARISON: No relevant prior studies available. FINDINGS: Bones/joints: There is deformity of the proximal shaft of the fibula, favored to represent residual of remote trauma. No joint effusion evident. Moderate enthesopathic changes at the upper pole of the patella. Chronic benign-appearing periosteal reaction is present along the medial cortex of the proximal tibial metaphysis. Soft tissues: No acute soft tissue abnormality identified. XR/XR knee RT 3V* [id number] IMPRESSION: Deformity of the proximal fibula, favored to represent residual of remote fracture. However recommend correlation with clinical history and physical findings to further assess this.
--- NOTE | 2023-08-02 10:43 | W.ED.FALL ---
HPI - Fall General: Chief Complaint: Fall Stated Complaint: fell, hurt right leg Time Seen by Provider: 08/02/23 10:34 Source: patient Mode of arrival: wheelchair History of Present Illness: 63-year-old female presents emergency room after a fall. She fell yesterday after what she describes as an allover body spasm. She is complaining of pain in her right hip and her right knee she denies striking her head did not lose conscious no other injuries when she fell. She has had difficulty with full weightbearing on the right leg since the fall. MD complaint: fall Onset (ago): day(s) (1) Fall from: standing Fall witnessed: yes, by family Place fall occurred: home Loss of consciousness: None Prolonged down time: no Symptoms prior to fall: none Context: other ( Full body spasm ) Location of injury - extremities: Right: thigh and knee Associated symptoms-after fall: Denies abdominal pain, chest pain, confusion, difficulty walking, headache(s), hematuria, lightheadedness, neck pain, numbness, short of breath, vertigo or weakness Review of Systems Const: Denies: fever(s), chills, fatigue or malaise Card: Denies: chest pain or lightheadedness Resp: Denies: dyspnea GI: Denies: abdominal pain : Denies: hematuria Musc: Reports: extremity pain and joint pain; Denies: neck pain Skin/Breast: Denies: rash Neuro: Denies: headache(s), difficulty walking, vertigo or confusion PFSH ED PFSH: Medical History Bilateral kidney stones Calcium urolithiasis Cardiac arrest Carpal tunnel syndrome of left wrist Chronic cystitis Chronic pain COPD (chronic obstructive pulmonary disease) History of colon cancer Hyperlipidemia Hypertension Incontinence Insulin dependent type 2 diabetes mellitus Internal carotid artery stenosis Multiple sclerosis Diagnosed in 2015 Patella fracture Recurrent urinary tract infection Surgical History History of appendectomy History of cholecystectomy History of colon resection COLON CANCER History of tonsillectomy Hx of adenoidectomy Hx of detached retina repair S/P extracorporeal shock wave therapy LEFT URETERAL STENT PLACEMENT Family History Father Parkinson disease Mother Parkinson disease Other CAD (coronary artery disease) Social History Smoking and tobacco/nicotine status: never used tobacco/nicotine Alcohol intake: never Substance/Drug Use: never Adopted: No Caregiver/support person: No Lives independently: No Household members: spouse Marital status: Current occupational status: disabled Current gender identity: Female Physical Exam Const: COMMON NORMALS: no acute distress GENERAL APPEARANCE: cooperative and comfortable ORIENTATION/CONSCIOUSNESS: Yes awake, Yes oriented to person, Yes oriented to place and Yes oriented to time HENMT: COMMON NORMALS: normocephalic, atraumatic and hearing grossly normal bilaterally HEAD & SCALP: normocephalic and atraumatic Resp: COMMON NORMALS: normal respiratory effort, No retractions, No use of accessory muscles and clear to auscultation bilaterally AUSCULTATION: clear to auscultation bilaterally Cardio: COMMON NORMALS: regular rate, regular rhythm and No murmurs present (Cardio) RATE: regular rate RHYTHM: regular rhythm GI: COMMON NORMALS: Soft to palpation and No hepatosplenomegaly present AUSCULTATION: Yes normoactive bowel sounds PALPATION: Yes Soft to palpation, No Tenderness to palpation present (GI), No Guarding due to palpation present (GI) and Yes No hepatosplenomegaly present Extremity: COMMON NORMALS: normal to inspection, capillary refill normal, no clubbing, cyanosis or edema, no calf tenderness and no pedal edema Neuro: SENSORIUM/ORIENTATION: Yes oriented to person, Yes oriented to place and Yes oriented to time Skin: COMMON NORMALS: no rashes or lesions noted GENERAL SKIN EXAM: no rashes or lesions noted Course Vital Signs: Vital signs: Vital Signs Temperature 99.3 F 08/02/23 10:35 Pulse Rate 84 08/02/23 13:19 Respiratory Rate 19 H 08/02/23 11:01 Blood Pressure 181/62 08/02/23 13:19 Pulse Oximetry 94 08/02/23 13:19 Oxygen Delivery Me thod Nasal Cannula 08/02/23 12:58 Oxygen Flow Rate 3 08/02/23 12:58 MDM - Fall Medical Decision Making No acute fractures. Ice ibuprofen as needed. The knee x-ray is a question of a fracture CT shows no acute fracture. Discussed the patient follow-up as needed Medical Records I reviewed the patient's medical records. Lab Data I reviewed the patient's lab results. Radiology Impressions Hip/Pelvis X-Ray 08/02/23 10:37 IMPRESSION: No acute fracture identified. Knee X-Ray 08/02/23 10:42 IMPRESSION: Deformity of the proximal fibula, favored to represent residual of remote fracture. However recommend correlation with clinical history and physical findings to further assess this. Knee CT 08/02/23 11:48 IMPRESSION: 1. Healed fracture deformity of the proximal fibular shaft. No acute fracture identified. All radiology interpretation(s) finalized by discharge Discharge Plan Discharge Patient Disposition: Home Clinical Impression: Acute pain of right hip, Knee pain, right, Fall Condition: Stable Prescriptions: New diclofenac sodium 75 mg tablet,delayed release (DR/EC) 75 mg PO Q12H PRN (Reason: pain) Qty: 20 0RF No Action cyanocobalamin (vitamin B-12) 1,000 mcg capsule 1,000 mcg PO DAILY isosorbide mononitrate 30 mg tablet extended release 24 hr 30 mg PO DAILY calcium carbonate 500 mg calcium (1,250 mg) tablet,chewable 500 mg PO DAILY albuterol sulfate 90 mcg/actuation HFA aerosol inhaler 2 puff INHALATION Q6H PRN (Reason: Respiratory Distress) Spiriva with HandiHaler 18 mcg capsule, w/inhalation device 1 cap INHALATION DAILY Symbicort 160-4.5 mcg/actuation HFA aerosol inhaler 2 puff INHALATION BID potassium chloride 10 mEq capsule, extended release 10 meq PO DAILY atorvastatin 80 mg tablet 80 mg PO DAILY furosemide 40 mg tablet 40 mg PO DAILY (DME) WALKER See Rx Instructions .Route .MEDSUPPLY Qty: 1 0RF Rx Instructions: As directed oxybutynin chloride 5 mg tablet 5 mg PO BID metoprolol tartrate 25 mg tablet 25 mg PO BID@0900,2100 pregabalin 150 mg capsule 200 mg PO BID cholecalciferol (vitamin D3) 25 mcg (1,000 unit) capsule 25 mcg PO DAILY (DME) FreeStyle Alexander 2 Sensor Kit See Rx Instructions .Route Qty: 8 3RF Rx Instructions: change every 14 days oxycodone 10 mg tablet 10 mg PO TID PRN Mounjaro 2.5 mg/0.5 mL pen injector SUBCUT ONCE lurasidone [Latuda] 40 mg tablet 40 mg PO DAILY Rx Instructions: must administer with food (at least 350 calories) (DME) Dexcom G6 Entertainment Director Misc See Rx Instructions .Route Qty: 1 0RF Rx Instructions: Check BS 4-6 times a day. (DME) Dexcom G6 Sensor Device See Rx Instructions .Route Qty: 3 3RF Rx Instructions: Change every 10 days. (DME) Dexcom G6 Transmitter Device See Rx Instructions .Route Qty: 1 3RF Rx Instructions: Change every 90 days Humulin R U-500 (Conc) Kwikpen 500 unit/mL (3 mL) insulin pen See Rx Instructions SUBCUT TID 90 Days Qty: 166 3RF Rx Instructions: Take 320u am 320u w/lunch 250u pm subcutaneously three times daily; (DME) blood sugar diagnostic Strip See Rx Instructions .Route Qty: 200 3RF Rx Instructions: As directed (DME) blood-glucose meter Kit See Rx Instructions .Route Qty: 1 0RF Rx Instructions: Check BS twice a day. Victoza 3-Isaac 0.6 mg/0.1 mL (18 mg/3 mL) pen injector 0.6 mg SUBCUT DAILY Qty: 9 3RF Rx Instructions: Administer 0.6 mg daily for 1 week, then 1.2 mg daily for 1 week, then 1.8 mg daily and continue. Victoza 3-Isaac 0.6 mg/0.1 mL (18 mg/3 mL) pen injector 1.8 mg SUBCUT DAILY Qty: 27 2RF aspirin 81 mg Tablet,Delayed Release (Dr/Ec) 162 mg PO DAILY Qty: 60 0RF spironolactone 25 mg Tablet 25 mg PO DAILY Qty: 30 0RF amlodipine 10 mg Tablet 10 mg PO DAILY Qty: 30 0RF Hold Instructions: hypotension Protonix 40 mg tablet,delayed release (DR/EC) 40 mg PO BID Qty: 60 0RF Discharge Orders: Discharge ED (Routine); Ordered 08/02/23 Ordered By: David Domingo Referrals: Leah Millard DO [Primary Care Provider] - Discharge Diet: Usual diet Discharge Activity: Increase activity as tolerated Patient Instructions: Opioid Safety, Pain Management Activity Restrictions/Additional Instructions: Thank you for choosing [facility] for your healthcare needs today. Please realize this is an emergency room and that we are providing you with a medical screening exam and this may not be complete and all inclusive of all the testing and or work up that you may need to determine your ailment or severity of your illness. It is very important that you follow up as instructed or that you return to the Emergency Department should you have concerns or if your condition changes or worsens in any way. X-rays of your hip pelvis and knee were negative in the emergency room. If symptoms persist follow-up with your primary care provider. Coding Level of Care Code ED Timber Incisor Operator for Alphonso Valdes
--- NOTE | 2023-08-02 11:48 | CTR_ITS ---
PROCEDURE INFORMATION: Exam: CT Right Lower Extremity Without Contrast, Knee Exam date and time: 08/02/2023 12:06 PM Age: 63 years old Clinical indication: Injury or trauma; Fall; Blunt trauma; Knee; Right TECHNIQUE: Imaging protocol: CT of the right lower extremity without contrast was performed. Exam focused on the knee. Radiation optimization: All CT scans at this facility use at least one of these dose optimization techniques: automated exposure control; mA and/or kV adjustment per patient size (includes targeted exams where dose is matched to clinical indication); or iterative reconstruction. REPORTING DATA: Count of CT and Cardiac NM exams in prior 12 months: This patient has received 0 known CTs and 0 known cardiac nuclear medicine studies in the 12 months prior to the current study. COMPARISON: CR (LOW EXM, ) 08/02/2023 10:55 AM RADIATION DOSE METRICS: Total DLP (mGy-cm): 786.89 FINDINGS: Bones/joints: There is deformity of the proximal fibular shaft consistent with a healed fracture without evidence of significant angulation. There are mild degenerative changes in the knee joint. No significant volume of joint space fluid evident. No acute fracture identified. No lipohemarthrosis. Soft tissues: There is subcutaneous edema of the knee anteriorly at the level of the patella and patellar tendon. Vasculature: Moderate vascular calcification is identified. CT/CT knee RT wo con* [id number] IMPRESSION: 1. Healed fracture deformity of the proximal fibular shaft. No acute fracture identified.
[2023-08-02] MEDS: ondansetron 2 mg/ML SDV 2 mL 4 MG IVP (12:55)
[2023-08-02] MEDS: acetaminophen 1,000 MG/100 ML PIGGYBACK 400 MG IV (12:55)
== END 2023-08-02 13:22 | disposition home or self-care (01) ==
PROVIDERS: Emergency Provider Family Medicine; PCP Family Medicine
DX: M25.551 Pain in right hip (principal); M25.561 Pain in right knee; Z79.82 Long term (current) use of aspirin; Z79.4 Long term (current) use of insulin; J44.9 Chronic obstructive pulmonary disease, unspecified; Z85.038 Personal history of other malignant neoplasm of large intestine; E78.5 Hyperlipidemia, unspecified; I10 Essential (primary) hypertension; E11.9 Type 2 diabetes mellitus without complications; G35 Multiple sclerosis
CPT/HCPCS: 73502; 73562; 73700; 96365; 96375; 99285; J0131; J2405

== ENCOUNTER → 2023-09-23 07:45 | Outpatient (BNVA) | payer OTHER, SELFPAY | PROVIDERS: PCP Family Medicine; Visit Provider Internal Medicine | DX: Z79.4 Long term (current) use of insulin; E11.59 Type 2 diabetes mellitus with other circulatory complications; I25.10 Atherosclerotic heart disease of native coronary artery without angina pectoris; E78.2 Mixed hyperlipidemia; E66.01 Morbid (severe) obesity due to excess calories; Z79.85 Long-term (current) use of injectable non-insulin antidiabetic drugs; Z68.44 Body mass index [BMI] 60.0-69.9, adult | CPT/HCPCS: 36415; 80053; 80061; 82044; 83036; 99214 ==

== ENCOUNTER 2023-12-22 12:04 | Outpatient (CLI) | payer OTHER, MEDICAID, SELFPAY ==
[2023-12-22 12:59] LABS: Estmated Average Glucose 169; Hemoglobin A1C 7.5 % (4.0-6.0)
[2023-12-22 13:08] LABS: Alanine Aminotransferase 13 U/L (0-33); Albumin Level 3.3 g/dL (3.5-5.2); Alkaline Phosphatase 113 U/L (35-105); Anion Gap 12.5 (5-19); Aspartate Amino Transferase 13 U/L (0-32); Blood Urea Nitrogen 5 mg/dL (8-23); Calcium 8.9 mg/dL (8.5-10.5); Carbon Dioxide 31 mmol/L (22-29); Chloride 99 mmol/L (98-107); Chol HDL Ratio 4.88 mg/dL (0.0-4.40); Cholesterol 156 mg/dL (0-200); Globulin 3.3 g/dL (1.3-4.6); Glomerular Filtration Rate 55.8 mL/min (90-130); Glucose 152 mg/dL (65-115); HDL Cholesterol 32 mg/dL (60-100); LDL Cholesterol Calculated 92 mg/dL (50-129); LDL HDL Ratio 2.88 RATIO (0.00-3.22); Osmolality Calculated 286 mOsm/kg (285-295); Potassium 4.5 mmol/L (3.5-5.1); Sodium 138 mmol/L (136-145); Total Bilirubin 0.4 mg/dL (0.15-1.2); Total Protein 6.6 g/dL (6.6-8.7); Triglycerides 161 mg/dL (0-150)
[2023-12-22 13:11] LABS: Creatinine Urine, Random 60 mg/dL (28-217); Microalbum Creatinine Ratio Ur 17 mg/dL (0-20); Microalbumin Random Urine 1 ug/dL (0-20)
== END 2023-12-22 12:05 | disposition home or self-care (01) ==
LOC: LAB 12:13
PROVIDERS: PCP Family Medicine; Visit Provider Internal Medicine
DX: E11.9 Type 2 diabetes mellitus without complications (principal); Z79.4 Long term (current) use of insulin
CPT/HCPCS: 36415; 80053; 80061; 82044; 83036

== ENCOUNTER → 2023-12-23 08:31 | Outpatient (BNVA) | payer OTHER, MEDICAID, SELFPAY | PROVIDERS: PCP Family Medicine; Visit Provider Internal Medicine | DX: Z79.4 Long term (current) use of insulin; E78.2 Mixed hyperlipidemia; E11.59 Type 2 diabetes mellitus with other circulatory complications; I25.10 Atherosclerotic heart disease of native coronary artery without angina pectoris; E66.01 Morbid (severe) obesity due to excess calories; Z68.43 Body mass index [BMI] 50.0-59.9, adult | CPT/HCPCS: 99214 ==

== ENCOUNTER → 2024-02-24 14:00 | Outpatient (BNVA) | payer OTHER, MEDICAID, SELFPAY | PROVIDERS: PCP Family Medicine; Visit Provider Internal Medicine | DX: I25.10 Atherosclerotic heart disease of native coronary artery without angina pectoris (principal); I10 Essential (primary) hypertension; E78.2 Mixed hyperlipidemia; E11.9 Type 2 diabetes mellitus without complications; Z79.4 Long term (current) use of insulin; Z86.74 Personal history of sudden cardiac arrest; Z87.891 Personal history of nicotine dependence | CPT/HCPCS: 99214 ==

== ENCOUNTER → 2024-03-01 07:58 | Outpatient (CLI) | payer OTHER, MEDICAID, SELFPAY ==
--- NOTE | 2024-03-01 08:15 | USCV_ITS ---
Melissa Kinney Age: 63 Gender: F : 1960 Exam Date: 03/01/2024 08:14 Ordering Phys: Cristiano Aceves M.D ([email or web address]) Technologist: Exam Location: [facility] [place] Indication: HX OF AL BP: / HR: 67 Rhythm: Sinus Technical Quality: Adequate MEASUREMENTS (Male / Female) Normal Values 2D ECHO LV Diastolic Diameter PLAX 3.8 cm 4.2 - 5.9 / 3.9 - 5.3 cm IVS Diastolic Thickness 1.8 cm 0.6 - 1.0 / 0.6 - 0.9 cm IVS Systolic Thickness 2.0 cm LVPW Diastolic Thickness 1.8 cm 0.6 - 1.0 / 0.6 - 0.9 cm LVPW Systolic Thickness 2.1 cm LVOT Diameter 2.0 cm LV Ejection Fraction 2D Teich 64.7 % LV Ejection Fraction MOD 2C 56.9 % LV Ejection Fraction 2C AL 55.5 % LA Diameter 3.0 cm RA Systolic Volume 4C AL 28.7 ml RA Systolic Volume 4C MOD 27.2 ml LA Sys Volume AL 57.5 cm cubed LA Sys Volume Index AL 24.4 cm cubed/m squared Aorta at Sinotubular Diameter 3.0 cm M-MODE LA Ao Ratio MM 1.4 AV Cusp Separation MM 2.5 cm DOPPLER AV Peak Velocity 166.0 cm/s LVOT Peak Velocity 123.0 cm/s AV Area Cont Eq vti 2.3 cm squared AV Area Cont Eq pk 2.4 cm squared MV Peak Velocity 93.0 cm/s MV Area PHT 3.7 cm squared Mitral E to A Ratio 1.0 TV Peak Velocity 156.5 cm/s TR Peak Velocity 164.0 cm/s TR Peak Gradient 10.8 mmHg TV Peak E Velocity 73.0 cm/s Right Atrial Pressure 3.0 mmHg Pulmonary Artery Systolic Pressu 13.8 mmHg PV Peak Velocity 159.0 cm/s FINDINGS Left Ventricle Normal left ventricular size, systolic function and wall thickness, with no regional wall motion abnormalities. Left ventricular ejection fraction is estimated at 60 %. Grade II/IV diastolic dysfunction, moderately elevated filling pressures. Right Ventricle The right ventricle is normal in size and function. Right Atrium The right atrium is normal in size. Left Atrium The left atrium is normal in size. Mitral Valve Structurally normal mitral valve without significant stenosis or prolapse. There is mild mitral regurgitation. Aortic Valve Structurally normal aortic valve without significant sclerosis or stenosis. There is no aortic regurgitation. Tricuspid Valve Structurally normal tricuspid valve without significant stenosis or regurgitation. Pulmonary artery systolic pressure is normal. Pulmonic Valve Structurally normal pulmonic valve without significant stenosis. There is no pulmonic regurgitation. Pericardium Normal pericardium without effusion. Aorta Normal ascending aorta dimension. IVC The inferior vena cava appears normal. CONCLUSIONS 1-Normal left ventricular size, systolic function and wall thickness, with no regional wall motion abnormalities. Left ventricular ejection fraction is estimated at 60 %. Grade II/IV diastolic dysfunction, moderately elevated filling pressures. 2-No significant valve abnormalities. 3-There is no pericardial effusion. 4-Right atrial pressure is around 5 mm of mercury. Kenisha Carrillo MD (Electronically Signed) Final Date: 01 March 2024 21:06 S
== END | disposition home or self-care (01) ==
LOC: RAD 07:58
PROVIDERS: PCP Family Medicine; Visit Provider Internal Medicine
DX: I50.30 Unspecified diastolic (congestive) heart failure (principal); R06.02 Shortness of breath
CPT/HCPCS: 93306

== ENCOUNTER 2024-05-27 21:32 | Emergency (ER) | payer OTHER, MEDICAID, SELFPAY ==
[2024-05-27 21:44] VITALS: BP 97/61; PULSE 95; RESP 18; TEMP 38.5; O2SAT 99
--- NOTE | 2024-05-27 21:55 | XRR_ITS ---
PROCEDURE INFORMATION: Exam: XR Chest Exam date and time: 05/27/2024 10:52 PM Age: 63 years old Clinical indication: Prior surgery; Surgery date: 6+ months; Surgery type: Gb; Patient HX: C/O fever. History of colon cancer. TECHNIQUE: Imaging protocol: Radiologic exam of the chest. Views: 1 view. COMPARISON: CR XR chest 1V portable [id number] 10/27/2020 6:13 AM FINDINGS: Lungs: Mild patchy left basilar opacities. No evidence of pulmonary edema. Pleural spaces: Unremarkable. No pleural effusion. No pneumothorax. Heart/Mediastinum: Unremarkable. No cardiomegaly. Bones/joints: Unremarkable. XR/XR chest 1V portable [id number] IMPRESSION: Mild patchy left basilar opacities may represent infiltrate.
[2024-05-27 22:55] LABS: Basophils # 0.1 10^3/uL (0.0-0.1); Basophils % 0.5 %; Eosinophils % 0.2 %; Hematocrit 37.3 % (36-47); Lymphocytes # 1.4 10^3/uL (0.8-4.8); Lymphocytes % 10.9 %; Mean Corpuscular HGB Conc 31.6 g/dL (30-55); Mean Corpuscular Hemoglobin 27.9 pg (27-33); Mean Corpuscular Volume 88.2 fl (85-98); Mean Platelet Volume 9.5 fL (7.4-10.4); Monocytes # 0.5 10^3/uL (0.2-0.9); Monocytes % 4.2 %; Neutrophils # 10.47 10^3/uL (1.8-7.7); Neutrophils % 83.6 %; Nucleated Red Blood Cells % 0 %; Platelet Count 234 10^3/cmm (157-399); Red Blood Count 4.23 10^6/uL (3.85-5.65); Red Cell Distribution Width 14.9 % (12.1-15.1); White Blood Count 12.51 10^3/uL (3.29-11.43)
[2024-05-27] MEDS: sodium chloride 0.9% 1,000 ML 999 ML IV (23:00)
[2024-05-27 23:13] LABS: Alanine Aminotransferase 9 U/L (0-33); Albumin Level 3.3 g/dL (3.5-5.2); Alkaline Phosphatase 145 U/L (35-105); Anion Gap 13.3 (5-19); Aspartate Amino Transferase 11 U/L (0-32); Blood Urea Nitrogen 8 mg/dL (8-23); Carbon Dioxide 30 mmol/L (22-29); Chloride 99 mmol/L (98-107); Globulin 3.5 g/dL (1.3-4.6); Glomerular Filtration Rate 45.2 mL/min (90-130); Glucose 161 mg/dL (65-115); Osmolality Calculated 288 mOsm/kg (285-295); Potassium 4.3 mmol/L (3.5-5.1); Sodium 138 mmol/L (136-145); Total Bilirubin 0.6 mg/dL (0.15-1.2); Total Protein 6.8 g/dL (6.6-8.7)
[2024-05-27 23:14] LABS: Creatinine Clr Calc Pharmacy 61.8736; Lactic Sepsis W/Reflex 1.6 mmol/L (0.5-2.2)
[2024-05-27 23:23] VITALS: BP 112/65; PULSE 89; RESP 16; O2SAT 98
--- NOTE | 2024-05-27 23:30 | ED_ITS ---
Documented by User: ADELIA Carver 05/28/24 00:01 HPI - General Adult 2 General: Chief complaint: Allergic Reaction Stated complaint: New onset Jerking Time Seen by Provider: 05/27/24 21:35 Source: patient and family Mode of arrival: EMS Limitations: no limitations History of Present Illness: Patient is a 63-year-old female presents to ED today along with family for evaluation of jerking movements . Patient states over the past 2 days they have received influenza, COVID, RSV vaccinations. Daughter states that patient slept most of the day with fatigue and malaise. They state when they try to get her up today they noticed jerking movements to her head and arms. Upon arrival to the emergency department she was noted to have a fever of 101.3. Patient has chronic pain but states this seems to be at baseline. She did experience a fall today but daughter states it was more of a slowly lowering herself to the ground. She has some minor discomfort to her right hip but has walked on this since the fall. She has had a runny nose. No abdominal pain, vomiting, diarrhea. Onset (ago): hour(s) Severity: mild Relieving factors: none Exacerbating factors: none Associated symptoms: Reports malaise; Deny chest pain, dyspnea, headache(s), nausea, rash, palpitations, syncope or vomiting Treatments prior to arrival: none Related Data Home Medications Medication Instructions Recorded Confirmed albuterol sulfate 90 mcg/actuation 2 puff inhalation Q6H PRN 10/04/19 05/17/24 aerosol inhaler Respiratory Distress atorvastatin 80 mg tablet 80 mg PO DAILY 10/04/19 05/17/24 budesonide-formoterol HFA 160 2 puff inhalation BID 10/04/19 05/17/24 mcg-4.5 mcg/actuation aerosol inhaler (Symbicort) calcium carbonate 500 mg PO DAILY 10/04/19 05/17/24 cyanocobalamin (vitamin B-12) 1,000 mcg PO DAILY 10/04/19 05/17/24 1,000 mcg capsule furosemide 40 mg tablet 40 mg PO DAILY 10/04/19 05/17/24 potassium chloride 10 mEq 10 meq PO DAILY 10/04/19 05/17/24 capsule,extended release tiotropium bromide 18 mcg capsule 1 cap inhalation DAILY 10/04/19 05/17/24 with inhalation device (Spiriva with HandiHaler) metoprolol tartrate 25 mg tablet 25 mg PO BID@0900,2100 08/14/21 05/17/24 oxybutynin chloride 5 mg tablet 5 mg PO BID 08/14/21 05/17/24 cholecalciferol (vitamin D3) 25 25 mcg PO DAILY 09/26/21 05/17/24 mcg (1,000 unit) capsule oxycodone 10 mg tablet 10 mg PO TID PRN 05/26/23 05/17/24 pregabalin 150 mg capsule 200 mg PO BID 05/26/23 05/17/24 lurasidone 40 mg tablet (Latuda) 40 mg PO DAILY 06/24/23 05/17/24 Previous Rx's Medication Instructions Recorded WALKER #1 ea 10/04/20 amlodipine 10 mg tablet 10 mg PO DAILY #30 tabs 11/03/20 aspirin 81 mg tablet,delayed 162 mg (2 x 81 mg) PO DAILY #60 11/03/20 release tabs pantoprazole 40 mg tablet,delayed 40 mg PO BID #60 tabs 11/03/20 release (Protonix) spironolactone 25 mg tablet 25 mg PO DAILY #30 tabs 11/03/20 blood sugar diagnostic #200 ea 08/23/21 blood-glucose meter #1 ea 08/23/21 flash glucose sensor (FreeStyle #8 ea 09/30/22 Alexander 2 Sensor kit) tirzepatide 10 mg/0.5 mL 10 mg (0.5 mL) SUBCUT Q7D 30 days 09/23/23 subcutaneous pen injector #2 mL (Mounjaro) tirzepatide 12.5 mg/0.5 mL 12.5 mg (0.5 mL) SUBCUT Q7D #2 mL 09/23/23 subcutaneous pen injector (Mounjaro) blood-glucose meter,continuous #1 ea 10/07/23 (Dexcom G7 Tin Pot Operator) tirzepatide 15 mg/0.5 mL 15 mg (0.5 mL) SUBCUT Q7D #2 mL 12/23/23 subcutaneous pen injector (Mounjaro) blood-glucose sensor (Dexcom G7 #9 ea 02/11/24 Sensor device) insulin regular hum U-500 conc 500 See Rx Instructions .Route 03/02/24 unit/mL(3 mL) subcut pen (Humulin .COMPLEX #60 mL R U-500 (Conc) Insulin Kwikpen) ciprofloxacin HCl 500 mg tablet 500 mg PO BID 7 days #14 tabs 05/17/24 (Cipro) fluconazole 150 mg tablet 150 mg PO ONCE #1 tab 05/17/24 levofloxacin 500 mg tablet 500 mg PO DAILY 7 days #7 tabs 05/28/24 Allergies Allergy/AdvReac Type Severity Reaction Status Date / Time clindamycin Allergy Intermediate rash/nausea Verified 05/27/24 21:52 cephalexin [From Keflex] Allergy RASH,FEVER Verified 05/27/24 21:52 clonazepam [From Klonopin] Allergy SEIZURES Verified 05/27/24 21:52 doxycycline Allergy CONVULSIONS Verified 05/27/24 21:52 glyburide Allergy HIVES Verified 05/27/24 21:52 iodine Allergy ALGY-Wheezi Verified 05/27/24 21:52 ng Penicillins Allergy CONVULSIONS Verified 05/27/24 21:52 Sulfa (Sulfonamide Allergy RASH Verified 05/27/24 21:52 Antibiotics) tramadol [From Ultram] Allergy HIVES Verified 05/27/24 21:52 hydroxyzine Allergy unknown Uncoded 05/27/24 21:52 Review of Systems 2 Const: Reports: fatigue and malaise; Denies: fever(s), chills or body aches Eyes: Denies: change in vision, blurry vision, photophobia, floaters or seeing flashes ENMT: Reports: nasal discharge; Denies: throat pain, odynophagia, ear or mastoid pain or sinus pain Card: Denies: chest pain, palpitations, irregular heart rhythm, edema, swelling of feet/ankles, lightheadedness, syncope or pre-syncope Resp: Denies: dyspnea, productive cough or non-productive cough GI: Denies: abdominal pain, nausea, vomiting or diarrhea : Denies: flank pain or dysuria Musc: Reports: joint pain (R hip); Denies: neck pain, back pain, extremity pain, extremity swelling or joint swelling Skin/Breast: Denies: rash Neuro: Reports: other ( jerking ); Denies: headache(s), numbness in extremities, weakness in extremities or sensory changes PFSH ED 2 PFSH: Medical History Chronic cystitis Multiple sclerosis Diagnosed in 2015 Internal carotid artery stenosis Chronic pain History of colon cancer COPD (chronic obstructive pulmonary disease) Hyperlipidemia Insulin dependent type 2 diabetes mellitus Cardiac arrest Hypertension Patella fracture Incontinence Recurrent urinary tract infection Bilateral kidney stones Calcium urolithiasis Carpal tunnel syndrome of left wrist Surgical History Hx of detached retina repair History of tonsillectomy S/P extracorporeal shock wave therapy LEFT URETERAL STENT PLACEMENT History of appendectomy History of cholecystectomy Hx of adenoidectomy History of colon resection COLON CANCER Family History Father Parkinson disease Mother Parkinson disease Other CAD (coronary artery disease) Social History Smoking and tobacco/nicotine status: former use of tobacco/nicotine Alcohol intake: never Substance/Drug Use: never Adopted: No Caregiver/support person: No Lives independently: No Household members: spouse Marital status: Current occupational status: disabled Current gender identity: Female Physical Exam 2 Const: COMMON NORMALS: no acute distress, patient oriented x3, no limitations, alert and well nourished GENERAL APPEARANCE: cooperative NUTRITIONAL APPEARANCE: obese morbidly obese (BMI of 42.0) ORIENTATION/CONSCIOUSNESS: Yes awake, Yes oriented to person, Yes oriented to place and Yes oriented to time HENMT: COMMON NORMALS: normocephalic and atraumatic HEAD & SCALP: normal to inspection, normocephalic and atraumatic Eye: COMMON NORMALS: no scleral icterus Neck/C-Spine: COMMON NORMALS: no lymphadenopathy GENERAL: Yes normal visual inspection Chest: COMMONS NORMALS: normal inspection of the chest and normal palpation of entire chest wall Resp: COMMON NORMALS: normal respiratory effort and clear to auscultation bilaterally AUSCULTATION: clear to auscultation bilaterally Cardio: COMMON NORMALS: regular rate and regular rhythm RATE: regular rate RHYTHM: regular rhythm GI: COMMON NORMALS: Normal to inspection, nondistended, normoactive bowel sounds present, Soft to palpation and non-tender PALPATION: Yes Soft to palpation : COMMON NORMALS: Yes no CVA tenderness BLADDER/KIDNEY EXAM: Yes no CVA tenderness Back/Pelvis: COMMON NORMALS: no CVA tenderness OTHER: diffuse neck/back [id number] baseline per patient Extremity: COMMON NORMALS: full ROM and capillary refill normal GENERAL: Y es normal exam except as noted OTHER: reports some minor discomfort near R hip/groin; has pretty normal ROM here with passive ROM testing; NV intact Neuro: COMMON NORMALS: patient oriented x3, moves all extremities, no focal motor deficits and no sensory deficits noted SENSORIUM/ORIENTATION: Yes alert, Yes oriented to person, Yes oriented to place and Yes oriented to time Psych: OTHER: jerking movements that family explained are not present during my examination Skin: COMMON NORMALS: no rashes or lesions noted GENERAL SKIN EXAM: no rashes or lesions noted Course 2 ED course: Patient here along with family for evaluation of jerking movements that started earlier today. These are not present during my examination. She arrived to the ED febrile at 101.3. Blood pressure was soft at 97/61. During my initial assessment with patient blood pressure head already improved to 112/65. At this time workup is currently pending. She has a minor white count of 12.5. Chemistry is overall unremarkable. COVID/influenza/RSV pending. UA has not been obtained. CXR pending radiology over read the personal interpretation appears to be a left lower lobe pneumonia. Care will be transferred as my shift is ending. Vital Signs: Vital signs: Vital Signs Temperature 99.1 F 05/28/24 01:38 Pulse Rate 76 05/28/24 01:12 Respiratory Rate 18 05/28/24 01:12 Blood Pressure 92/50 05/28/24 01:12 Pulse Oximetry 99 05/28/24 01:12 Oxygen Delivery Me thod Nasal Cannula 05/28/24 01:12 Oxygen Flow Rate 0.5 05/28/24 01:12 [facility] - General Adult Lab Data 05/27/24 22:51 05/27/24 22:51 Radiology Impressions Chest X-Ray 05/27/24 21:55 IMPRESSION: Mild patchy left basilar opacities may represent infiltrate. Hip/Pelvis X-Ray 05/27/24 23:53 IMPRESSION: 1. No acute osseous findings. 2. 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 Laboratory Results WBC 12.51 10^3/uL (3.29-11.43) H 05/27/24 22:51 RBC 4.23 10^6/uL (3.85-5.65) 05/27/24 22:51 Hgb 11.80 g/dL (11.27-16.99) 05/27/24 22:51 Hct 37.3 % (36-47) 05/27/24 22:51 MCV 88.2 fl (85-98) 05/27/24 22:51 MCH 27.9 pg (27-33) 05/27/24 22:51 MCHC 31.6 g/dL (30-55) 05/27/24 22:51 RDW 14.9 % (12.1-15.1) 05/27/24 22:51 Plt Count 234 10^3/cmm (157-399) 05/27/24 22:51 MPV 9.5 fL (7.4-10.4) 05/27/24 22:51 Neut % (Auto) 83.6 % 05/27/24 22:51 Lymph % (Auto) 10.9 % 05/27/24 22:51 [place] % (Auto) 4.2 % 05/27/24 22:51 Eos % (Auto) 0.2 % 05/27/24 22:51 Baso % (Auto) 0.5 % 05/27/24 22:51 Neut # (Auto) 10.47 10^3/uL (1.8-7.7) H 05/27/24 22:51 Lymph # (Auto) 1.4 10^3/uL (0.8-4.8) 05/27/24 22:51 [place] # (Auto) 0.5 10^3/uL (0.2-0.9) 05/27/24 22:51 Eos # (Auto) 0.0 10^3/uL (0.0-0.8) 05/27/24 22:51 Baso # (Auto) 0.1 10^3/uL (0.0-0.1) 05/27/24 22:51 Nucleated RBC % (auto) 0 % 05/27/24 22:51 Nucleated RBCs # 0.0 /100WBC 05/27/24 22:51 Sodium 138 mmol/L (136-145) 05/27/24 22:51 Potassium 4.3 mmol/L (3.5-5.1) 05/27/24 22:51 Chloride 99 mmol/L (98-107) 05/27/24 22:51 Carbon Dioxide 30 mmol/L (22-29) H 05/27/24 22:51 Anion Gap 13.3 (5-19) 05/27/24 22:51 BUN 8 mg/dL (8-23) 05/27/24 22:51 Creatinine 1.2 mg/dL (0.5-0.9) H 05/27/24 22:51 GFR Calculation 45.2 mL/min (90-130) L 05/27/24 22:51 Glucose 161 mg/dL (65-115) H 05/27/24 22:51 Calculated Osmolality 288 mOsm/kg (285-295) 05/27/24 22:51 Lactic Acid 1.6 mmol/L (0.5-2.2) 05/27/24 22:51 Calcium 9.0 mg/dL (8.5-10.5) 05/27/24 22:51 Total Bilirubin 0.6 mg/dL (0.15-1.2) 05/27/24 22:51 AST 11 U/L (0-32) 05/27/24 22:51 ALT 9 U/L (0-33) 05/27/24 22:51 Alkaline Phosphatase 145 U/L (35-105) H 05/27/24 22:51 Total Protein 6.8 g/dL (6.6-8.7) 05/27/24 22:51 Albumin 3.3 g/dL (3.5-5.2) L 05/27/24 22:51 Globulin 3.5 g/dL (1.3-4.6) 05/27/24 22:51 Urine Color Yellow (Yellow) 05/28/24 01:05 Urine Appearance Clear (CLEAR) 05/28/24 01:05 Urine pH 7 (5-7) 05/28/24 01:05 Ur Specific [place] 1.005 (1.005-1.030) 05/28/24 01:05 Urine Protein Trace (Negative) 05/28/24 01:05 Urine Glucose (UA) Norm (Normal) 05/28/24 01:05 Urine Ketones Negative (Negative) 05/28/24 01:05 Urine Blood 2+ (Negative) H 05/28/24 01:05 Urine Nitrate Negative (Negative) 05/28/24 01:05 Urine Bilirubin Neg (Negative) 05/28/24 01:05 Urine Urobilinogen Neg mg/dL (Negative) 05/28/24 01:05 Ur Leukocyte Esterase 1+ (Negative) H 05/28/24 01:05 Urine RBC 5-10 /hpf (0-2) H 05/28/24 01:05 Urine WBC None /hpf (0-5) 05/28/24 01:05 Ur Squamous Epith Cells 5-10 /hpf (0-5) H 05/28/24 01:05 Amorphous Sediment Not Reportable 05/28/24 01:05 Urine Bacteria None /hpf (NONE) 05/28/24 01:05 Coronavirus (PCR) Negative (Negative) 05/27/24 23:18 Influenza A (PCR) Negative (Negative) 05/27/24 23:18 Influenza Type B (PCR) Negative (Negative) 05/27/24 23:18 RSV (PCR) Negative (Negative) 05/27/24 23:18 Discharge Plan Discharge Patient Disposition: Home Clinical Impression: Pneumonia Qualifiers: Pneumonia type: due to unspecified organism Laterality: left Lung location: l ower lobe of lung Qualified Code(s): J18.9 - Pneumonia, unspecified organism Condition: Stable Prescriptions: New levofloxacin 500 mg tablet 500 mg PO DAILY 7 Days Qty: 7 0RF No Action cyanocobalamin (vitamin B-12) 1,000 mcg capsule 1,000 mcg PO DAILY calcium carbonate 500 mg calcium (1,250 mg) tablet,chewable 500 mg PO DAILY albuterol sulfate 90 mcg/actuation HFA aerosol inhaler 2 puff INHALATION Q6H PRN (Reason: Respiratory Distress) Spiriva with HandiHaler 18 mcg capsule, w/inhalation device 1 cap INHALATION DAILY Symbicort 160-4.5 mcg/actuation HFA aerosol inhaler 2 puff INHALATION BID potassium chloride 10 mEq capsule, extended release 10 meq PO DAILY atorvastatin 80 mg tablet 80 mg PO DAILY furosemide 40 mg tablet 40 mg PO DAILY (DME) WALKER See Rx Instructions .Route .MEDSUPPLY Qty: 1 0RF Rx Instructions: As directed oxybutynin chloride 5 mg tablet 5 mg PO BID metoprolol tartrate 25 mg tablet 25 mg PO BID@0900,2100 pregabalin 150 mg capsule 200 mg PO BID cholecalciferol (vitamin D3) 25 mcg (1,000 unit) capsule 25 mcg PO DAILY (DME) FreeStyle Alexander 2 Sensor Kit See Rx Instructions .Route Qty: 8 3RF Rx Instructions: change every 14 days oxycodone 10 mg tablet 10 mg PO TID PRN lurasidone [Latuda] 40 mg tablet 40 mg PO DAILY Rx Instructions: must administer with food (at least 350 calories) Mounjaro 15 mg/0.5 mL pen injector 15 mg SUBCUT Q7D Qty: 2 1RF ciprofloxacin HCl [Cipro] 500 mg tablet 500 mg PO BID 7 Days Qty: 14 0RF fluconazole 150 mg tablet 150 mg PO ONCE Qty: 1 0RF Rx Instructions: as a single dose Mounjaro 10 mg/0.5 mL pen injector 10 mg SUBCUT Q7D 30 Days Qty: 2 0RF Rx Instructions: 10mg weekly for 1 month Mounjaro 12.5 mg/0.5 mL pen injector 12.5 mg SUBCUT Q7D Qty: 2 0RF Rx Instructions: weekly (DME) blood sugar diagnostic Strip See Rx Instructions .Route Qty: 200 3RF Rx Instructions: As directed ([facility] blood-glucose meter Kit See Rx Instructions .Route Qty: 1 0RF Rx Instructions: Check BS twice a day. ([facility] [place] Dexcom G7 Tin Pot Operator Misc See Rx Instructions .Route Qty: 1 0RF Rx Instructions: As directed ([facility] [place] Dexcom G7 Sensor Device See Rx Instructions .ROUTE .MEDSUPPLY Qty: 9 1RF Rx Instructions: Change every 10days Humulin R U-500 (Conc) Kwikpen 500 unit/mL (3 mL) insulin pen See Rx Instructions .ROUTE .COMPLEX Qty: 60 0RF Dose Instruction: INJECT 320 UNITS UNDER THE SKIN IN THE MORNING, 320 UNITS WITH LUNCH AND 250 UNITS IN THE EVENING Rx Instructions: INJECT 320 UNITS UNDER THE SKIN IN THE MORNING, 320 UNITS WITH LUNCH AND 250 UNITS IN THE EVENING aspirin 81 mg Tablet,Delayed Release (Dr/Ec) 162 mg PO DAILY Qty: 60 0RF spironolactone 25 mg Tablet 25 mg PO DAILY Qty: 30 0RF amlodipine 10 mg Tablet 10 mg PO DAILY Qty: 30 0RF Hold Instructions: hypotension Protonix 40 mg tablet,delayed release (DR/EC) 40 mg PO BID Qty: 60 0RF Discharge Orders: Discharge ED (Routine); Ordered 05/28/24 Ordered By: Taqueria Bingham Referrals: Leah Millard DO [Primary Care Provider] - 1 week Patient Instructions: Pneumonia - Bacterial Activity Restrictions/Additional Instructions: Your x-ray showed you have some left lower lobe pneumonia. An antibiotic prescription has been sent to your pharmacy please take these as directed. Please follow-up with your family practitioner in the next 7 days for further evaluation and treatment. Coding Level of Care Code ED Silverware Cleaner for Chg Fwd Documented by User: Taqueria Bingham DO 05/28/24 01:49 HPI - General Adult 2 General: Chief complaint: Allergic Reaction Stated complaint: New onset Jerking Time Seen by Provider: 05/27/24 21:35 Related Data Home Medications Medication Instructions Recorded Confirmed albuterol sulfate 90 mcg/actuation 2 puff inhalation Q6H PRN 10/04/19 05/17/24 aerosol inhaler Respiratory Distress atorvastatin 80 mg tablet 80 mg PO DAILY 10/04/19 05/17/24 budesonide-formoterol HFA 160 2 puff inhalation BID 10/04/19 05/17/24 mcg-4.5 mcg/actuation aerosol inhaler (Symbicort) calcium carbonate 500 mg PO DAILY 10/04/19 05/17/24 cyanocobalamin (vitamin B-12) 1,000 mcg PO DAILY 10/04/19 05/17/24 1,000 mcg capsule furosemide 40 mg tablet 40 mg PO DAILY 10/04/19 05/17/24 potassium chloride 10 mEq 10 meq PO DAILY 10/04/19 05/17/24 capsule,extended release tiotropium bromide 18 mcg capsule 1 cap inhalation DAILY 10/04/19 05/17/24 with inhalation device (Spiriva with HandiHaler) metoprolol tartrate 25 mg tablet 25 mg PO BID@0900,2100 08/14/21 05/17/24 oxybutynin chloride 5 mg tablet 5 mg PO BID 08/14/21 05/17/24 cholecalciferol (vitamin D3) 25 25 mcg PO DAILY 09/26/21 05/17/24 mcg (1,000 unit) capsule oxycodone 10 mg tablet 10 mg PO TID PRN 05/26/23 05/17/24 pregabalin 150 mg capsule 200 mg PO BID 05/26/23 05/17/24 lurasidone 40 mg tablet (Latuda) 40 mg PO DAILY 06/24/23 05/17/24 Previous Rx's Medication Instructions Recorded WALKER #1 ea 10/04/20 amlodipine 10 mg tablet 10 mg PO DAILY #30 tabs 11/03/20 aspirin 81 mg tablet,delayed 162 mg (2 x 81 mg) PO DAILY #60 11/03/20 release tabs pantoprazole 40 mg tablet,delayed 40 mg PO BID #60 tabs 11/03/20 release (Protonix) spironolactone 25 mg tablet 25 mg PO DAILY #30 tabs 11/03/20 blood sugar diagnostic #200 ea 08/23/21 blood-glucose meter #1 ea 08/23/21 flash glucose sensor (FreeStyle #8 ea 09/30/22 Alexander 2 Sensor kit) tirzepatide 10 mg/0.5 mL 10 mg (0.5 mL) SUBCUT Q7D 30 days 09/23/23 subcutaneous pen injector #2 mL (Mounjaro) tirzepatide 12.5 mg/0.5 mL 12.5 mg (0.5 mL) SUBCUT Q7D #2 mL 09/23/23 subcutaneous pen injector (MounNearDeskro) blood-glucose meter,continuous #1 ea 10/07/23 (Dexcom G7 Tin Pot Operator) tirzepatide 15 mg/0.5 mL 15 mg (0.5 mL) SUBCUT Q7D #2 mL 12/23/23 subcutaneous pen injector (Mounjaro) blood-glucose sensor (Dexcom G7 #9 ea 02/11/24 Sensor device) insulin regular hum U-500 conc 500 See Rx Instructions .Route 03/02/24 unit/mL(3 mL) subcut pen (Humulin .COMPLEX #60 mL R U-500 (Conc) Insulin Kwikpen) ciprofloxacin HCl 500 mg tablet 500 mg PO BID 7 days #14 tabs 05/17/24 (Cipro) fluconazole 150 mg tablet 150 mg PO ONCE #1 tab 05/17/24 levofloxacin 500 mg tablet 500 mg PO DAILY 7 days #7 tabs 05/28/24 Allergies Allergy/AdvReac Type Severity Reaction Status Date / Time clindamycin Allergy Intermediate rash/nausea Verified 05/27/24 21:52 cephalexin [From Keflex] Allergy RASH,FEVER Verified 05/27/24 21:52 clonazepam [From Klonopin] Allergy SEIZURES Verified 05/27/24 21:52 doxycycline Allergy CONVULSIONS Verified 05/27/24 21:52 glyburide Allergy HIVES Verified 05/27/24 21:52 iodine Allergy ALGY-Wheezi Verified 05/27/24 21:52 ng Penicillins Allergy CONVULSIONS Verified 05/27/24 21:52 Sulfa (Sulfonamide Allergy RASH Verified 05/27/24 21:52 Antibiotics) tramadol [From Ultram] Allergy HIVES Verified 05/27/24 21:52 hydroxyzine Allergy unknown Uncoded 05/27/24 21:52 PFSH ED 2 PFSH: Medical History Chronic cystitis Multiple sclerosis Diagnosed in 2014 Internal carotid artery stenosis Chronic pain History of colon cancer COPD (chronic obstructive pulmonary disease) Hyperlipidemia Insulin dependent type 2 diabetes mellitus Cardiac arrest Hypertension Patella fracture Incontinence Recurrent urinary tract infection Bilateral kidney stones Calcium urolithiasis Carpal tunnel syndrome of left wrist Surgical History Hx of detached retina repair History of tonsillectomy S/P extracorporeal shock wave therapy LEFT URETERAL STENT PLACEMENT History of appendectomy History of cholecystectomy Hx of adenoidectomy History of colon resection COLON CANCER Family History Father Parkinson disease Mother Parkinson disease Other CAD (coronary artery disease) Social History Smoking and tobacco/nicotine status: former use of tobacco/nicotine Alcohol intake: never Substance/Drug Use: never Adopted: No Caregiver/support person: No Lives independently: No Household members: spouse Marital status: Current occupational status: disabled Current gender identity: Female Course 2 Vital Signs: Vital signs: Vital Signs Temperature 99.1 F 05/28/24 01:38 Pulse Rate 76 05/28/24 01:12 Respiratory Rate 18 05/28/24 01:12 Blood Pressure 92/50 05/28/24 01:12 Pulse Oximetry 99 05/28/24 01:12 Oxygen Delivery Me thod Nasal Cannula 05/28/24 01:12 Oxygen Flow Rate 0.5 05/28/24 01:12 MDM - General Adult Medical Decision Making Patient care turned over to myself at shift change, lab work was reviewed, mildly elevated white count, trace leukocyte esterase in her urine, chest x-ray showed patchy basilar left and foot opacity which may represent infiltrate. Patient be given Levaquin 500 mg here and discharged with a prescription for the next 7 days. Lab Data 05/27/24 22:51 05/27/24 22:51 Radiology Impressions Chest X-Ray 05/27/24 21:55 IMPRESSION: Mild patchy left basilar opacities may represent infiltrate. Hip/Pelvis X-Ray 05/27/24 23:53 IMPRESSION: 1. No acute osseous findings. 2. 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 Laboratory Results WBC 12.51 10^3/uL (3.29-11.43) H 05/27/24 22:51 RBC 4.23 10^6/uL (3.85-5.65) 05/27/24 22:51 Hgb 11.80 g/dL (11.27-16.99) 05/27/24 22:51 Hct 37.3 % (36-47) 05/27/24 22:51 MCV 88.2 fl (85-98) 05/27/24 22:51 MCH 27.9 pg (27-33) 05/27/24 22:51 MCHC 31.6 g/dL (30-55) 05/27/24 22:51 RDW 14.9 % (12.1-15.1) 05/27/24 22:51 Plt Count 234 10^3/cmm (157-399) 05/27/24 22:51 MPV 9.5 fL (7.4-10.4) 05/27/24 22:51 Neut % (Auto) 83.6 % 05/27/24 22:51 Lymph % (Auto) 10.9 % 05/27/24 22:51 [place] % (Auto) 4.2 % 05/27/24 22:51 Eos % (Auto) 0.2 % 05/27/24 22:51 Baso % (Auto) 0.5 % 05/27/24 22:51 Neut # (Auto) 10.47 10^3/uL (1.8-7.7) H 05/27/24 22:51 Lymph # (Auto) 1.4 10^3/uL (0.8-4.8) 05/27/24 22:51 [place] # (Auto) 0.5 10^3/uL (0.2-0.9) 05/27/24 22:51 Eos # (Auto) 0.0 10^3/uL (0.0-0.8) 05/27/24 22:51 Baso # (Auto) 0.1 10^3/uL (0.0-0.1) 05/27/24 22:51 Nucleated RBC % (auto) 0 % 05/27/24 22:51 Nucleated RBCs # 0.0 /100WBC 05/27/24 22:51 Sodium 138 mmol/L (136-145) 05/27/24 22:51 Potassium 4.3 mmol/L (3.5-5.1) 05/27/24 22:51 Chloride 99 mmol/L (98-107) 05/27/24 22:51 Carbon Dioxide 30 mmol/L (22-29) H 05/27/24 22:51 Anion Gap 13.3 (5-19) 05/27/24 22:51 BUN 8 mg/dL (8-23) 05/27/24 22:51 Creatinine 1.2 mg/dL (0.5-0.9) H 05/27/24 22:51 GFR Calculation 45.2 mL/min (90-130) L 05/27/24 22:51 Glucose 161 mg/dL (65-115) H 05/27/24 22:51 Calculated Osmolality 288 mOsm/kg (285-295) 05/27/24 22:51 Lactic Acid 1.6 mmol/L (0.5-2.2) 05/27/24 22:51 Calcium 9.0 mg/dL (8.5-10.5) 05/27/24 22:51 Total Bilirubin 0.6 mg/dL (0.15-1.2) 05/27/24 22:51 AST 11 U/L (0-32) 05/27/24 22:51 ALT 9 U/L (0-33) 05/27/24 22:51 Alkaline Phosphatase 145 U/L (35-105) H 05/27/24 22:51 Total Protein 6.8 g/dL (6.6-8.7) 05/27/24 22:51 Albumin 3.3 g/dL (3.5-5.2) L 05/27/24 22:51 Globulin 3.5 g/dL (1.3-4.6) 05/27/24 22:51 Urine Color Yellow (Yellow) 05/28/24 01:05 Urine Appearance Clear (CLEAR) 05/28/24 01:05 Urine pH 7 (5-7) 05/28/24 01:05 Ur Specific [place] 1.005 (1.005-1.030) 05/28/24 01:05 Urine Protein Trace (Negative) 05/28/24 01:05 Urine Glucose (UA) Norm (Normal) 05/28/24 01:05 Urine Ketones Negative (Negative) 05/28/24 01:05 Urine Blood 2+ (Negative) H 05/28/24 01:05 Urine Nitrate Negative (Negative) 05/28/24 01:05 Urine Bilirubin Neg (Negative) 05/28/24 01:05 Urine Urobilinogen Neg mg/dL (Negative) 05/28/24 01:05 Ur Leukocyte Esterase 1+ (Negative) H 05/28/24 01:05 Urine RBC 5-10 /hpf (0-2) H 05/28/24 01:05 Urine WBC None /hpf (0-5) 05/28/24 01:05 Ur Squamous Epith Cells 5-10 /hpf (0-5) H 05/28/24 01:05 Amorphous Sediment Not Reportable 05/28/24 01:05 Urine Bacteria None /hpf (NONE) 05/28/24 01:05 Coronavirus (PCR) Negative (Negative) 05/27/24 23:18 Influenza A (PCR) Negative (Negative) 05/27/24 23:18 Influenza Type B (PCR) Negative (Negative) 05/27/24 23:18 RSV (PCR) Negative (Negative) 05/27/24 23:18 All radiology interpretation(s) finalized by discharge Discharge Plan Discharge Patient Disposition: Home Clinical Impression: Pneumonia Qualifiers: Pneumonia type: due to unspecified organism Laterality: left Lung location: l ower lobe of lung Qualified Code(s): J18.9 - Pneumonia, unspecified organism Condition: Stable Prescriptions: New levofloxacin 500 mg tablet 500 mg PO DAILY 7 Days Qty: 7 0RF No Action cyanocobalamin (vitamin B-12) 1,000 mcg capsule 1,000 mcg PO DAILY calcium carbonate 500 mg calcium (1,250 mg) tablet,chewable 500 mg PO DAILY albuterol sulfate 90 mcg/actuation HFA aerosol inhaler 2 puff INHALATION Q6H PRN (Reason: Respiratory Distress) Spiriva with HandiHaler 18 mcg capsule, w/inhalation device 1 cap INHALATION DAILY Symbicort 160-4.5 mcg/actuation HFA aerosol inhaler 2 puff INHALATION BID potassium chloride 10 mEq capsule, extended release 10 meq PO DAILY atorvastatin 80 mg tablet 80 mg PO DAILY furosemide 40 mg tablet 40 mg PO DAILY (DME) WALKER See Rx Instructions .Route .MEDSUPPLY Qty: 1 0RF Rx Instructions: As directed oxybutynin chloride 5 mg tablet 5 mg PO BID metoprolol tartrate 25 mg tablet 25 mg PO BID@0900,2100 pregabalin 150 mg capsule 200 mg PO BID cholecalciferol (vitamin D3) 25 mcg (1,000 unit) capsule 25 mcg PO DAILY (DME) FreeStyle Alexander 2 Sensor Kit See Rx Instructions .Route Qty: 8 3RF Rx Instructions: change every 14 days oxycodone 10 mg tablet 10 mg PO TID PRN lurasidone [Latuda] 40 mg tablet 40 mg PO DAILY Rx Instructions: must administer with food (at least 350 calories) Mounjaro 15 mg/0.5 mL pen injector 15 mg SUBCUT Q7D Qty: 2 1RF ciprofloxacin HCl [Cipro] 500 mg tablet 500 mg PO BID 7 Days Qty: 14 0RF fluconazole 150 mg tablet 150 mg PO ONCE Qty: 1 0RF Rx Instructions: as a single dose Mounjaro 10 mg/0.5 mL pen injector 10 mg SUBCUT Q7D 30 Days Qty: 2 0RF Rx Instructions: 10mg weekly for 1 month Mounjaro 12.5 mg/0.5 mL pen injector 12.5 mg SUBCUT Q7D Qty: 2 0RF Rx Instructions: weekly (DME) blood sugar diagnostic Strip See Rx Instructions .Route Qty: 200 3RF Rx Instructions: As directed (DME) blood-glucose meter Kit See Rx Instructions .Route Qty: 1 0RF Rx Instructions: Check BS twice a day. (DME) Dexcom G7 Tin Pot Operator Misc See Rx Instructions .Route Qty: 1 0RF Rx Instructions: As directed (DME) Dexcom G7 Sensor Device See Rx Instructions .ROUTE .MEDSUPPLY Qty: 9 1RF Rx Instructions: Change every 10days Humulin R U-500 (Conc) Kwikpen 500 unit/mL (3 mL) insulin pen See Rx Instructions .ROUTE .COMPLEX Qty: 60 0RF Dose Instruction: INJECT 320 UNITS UNDER THE SKIN IN THE MORNING, 320 UNITS WITH LUNCH AND 250 UNITS IN THE EVENING Rx Instructions: INJECT 320 UNITS UNDER THE SKIN IN THE MORNING, 320 UNITS WITH LUNCH AND 250 UNITS IN THE EVENING aspirin 81 mg Tablet,Delayed Release (Dr/Ec) 162 mg PO DAILY Qty: 60 0RF spironolactone 25 mg Tablet 25 mg PO DAILY Qty: 30 0RF amlodipine 10 mg Tablet 10 mg PO DAILY Qty: 30 0RF Hold Instructions: hypotension Protonix 40 mg tablet,delayed release (DR/EC) 40 mg PO BID Qty: 60 0RF Discharge Orders: Discharge ED (Routine); Ordered 05/28/24 Ordered By: Taqueria Bingham Referrals: Leah Millard DO [Primary Care Provider] - 1 week Patient Instructions: Pneumonia - Bacterial Activity Restrictions/Additional Instructions: Your x-ray showed you have some left lower lobe pneumonia. An antibiotic prescription has been sent to your pharmacy please take these as directed. Please follow-up with your family practitioner in the next 7 days for further evaluation and treatment. Coding Level of Care Code ED Silverware Cleaner for Alphonso Valdes
--- NOTE | 2024-05-27 23:53 | XRR_ITS ---
PROCEDURE INFORMATION: Exam: XR Right Hip Exam date and time: 05/27/2024 11:56 PM Age: 63 years old Clinical indication: Injury or trauma; Blunt trauma (contusions or hematomas); Right; Prior surgery; Surgery date: 6+ months; Surgery type: Appy; Patient HX: C/O RT hip pain post fall at home last night. ; Additional info: Fall; One view pelvis too please TECHNIQUE: Imaging protocol: Radiologic exam of the right hip. Views: 1 view hip with pelvis when performed. COMPARISON: CR XR hip RT 2-3V wo/w pel* [id number] 08/02/2023 10:50 AM FINDINGS: Bones/joints: No definite acute fracture or dislocation. 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 Soft tissues: Unremarkable. Vasculature: Vascular calcifications. Other findings: Multiple calcified granulomas in the soft tissues of the pelvis. XR/XR hip RT 2-3V wo/w pel* [id number] IMPRESSION: 1. No acute osseous findings. 2. 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
[2024-05-28 00:11] LABS: Covid PCR NEGATIVE (Negative); Influenza A NEGATIVE (Negative); Influenza B NEGATIVE (Negative); Respiratory Syncytial Virus Ce NEGATIVE (Negative)
[2024-05-28] MEDS: acetaminophen 500 mg Tablet 1000 MG PO (00:59)
[2024-05-28 01:12] VITALS: BP 92/50; PULSE 76; RESP 18; O2SAT 99
[2024-05-28 01:27] LABS: Add Urine Microscopic? YES; Bilirubin Urine Neg (Negative); Blood Urine 2+ (Negative); Glucose Urine UA Norm (Normal); Ketones Urine Negative (Negative); Leukocyte Esterase Urine 1+ (Negative); Nitrate Urine Negative (Negative); Protein Urine Trace (Negative); Specific Gravity, Urine 1.005 (1.005-1.030); Urine Appearance Clear (CLEAR); Urine Color Yellow (Yellow); Urobilinogen Urine Neg (Negative); pH Urine 7 (5-7)
[2024-05-28 01:28] LABS: Add Urine Culture? No
[2024-05-28 01:38] VITALS: TEMP 37.3
[2024-05-28] MEDS: levoFLOXacin 500 mg Tablet PO (01:58)
[2024-05-28 02:09] VITALS: BP 123/76; PULSE 80; RESP 16; O2SAT 98
== END 2024-05-28 02:04 | disposition home or self-care (01) ==
PROVIDERS: Emergency Provider Physician Assistant; PCP Family Medicine
DX: J44.0 Chronic obstructive pulmonary disease with (acute) lower respiratory infection (principal); J18.9 Pneumonia, unspecified organism; Z79.84 Long term (current) use of oral hypoglycemic drugs; Z79.4 Long term (current) use of insulin; Z79.82 Long term (current) use of aspirin; Z87.891 Personal history of nicotine dependence; G35 Multiple sclerosis; Z85.038 Personal history of other malignant neoplasm of large intestine; E78.5 Hyperlipidemia, unspecified; E11.9 Type 2 diabetes mellitus without complications; I10 Essential (primary) hypertension
CPT/HCPCS: 0241U; 71045; 73502; 80053; 81001; 83605; 85025; 96360; 96361; 99284; J7030

== ENCOUNTER → 2024-06-02 10:51 | Outpatient (BNVA) | payer OTHER, MEDICAID, SELFPAY | PROVIDERS: PCP Family Medicine; Visit Provider Internal Medicine | DX: Z79.4 Long term (current) use of insulin; E78.2 Mixed hyperlipidemia; E11.59 Type 2 diabetes mellitus with other circulatory complications; I25.10 Atherosclerotic heart disease of native coronary artery without angina pectoris; E66.01 Morbid (severe) obesity due to excess calories; Z68.41 Body mass index [BMI] 40.0-44.9, adult; Z79.85 Long-term (current) use of injectable non-insulin antidiabetic drugs | CPT/HCPCS: 99214 ==

== ENCOUNTER 2024-11-16 08:49 | Outpatient (CLI) | payer MEDICARE, MEDICAID, SELFPAY ==
[2024-11-16 09:51] LABS: Alanine Aminotransferase 7 U/L (0-33); Albumin Level 3.7 g/dL (3.5-5.2); Alkaline Phosphatase 143 U/L (35-105); Anion Gap 14.2 (5-19); Aspartate Amino Transferase 11 U/L (0-32); Blood Urea Nitrogen 8 mg/dL (8-23); Calcium 9.3 mg/dL (8.5-10.5); Carbon Dioxide 32 mmol/L (22-29); Chloride 99 mmol/L (98-107); Chol HDL Ratio 4.31 mg/dL (0.0-4.40); Cholesterol 155 mg/dL (0-200); Globulin 3.1 g/dL (1.3-4.6); Glomerular Filtration Rate 55.6 mL/min (90-130); Glucose 166 mg/dL (65-115); HDL Cholesterol 36 mg/dL (60-100); LDL Cholesterol Calculated 88 mg/dL (50-129); LDL HDL Ratio 2.44 RATIO (0.00-3.22); Osmolality Calculated 294 mOsm/kg (285-295); Potassium 4.2 mmol/L (3.5-5.1); Sodium 141 mmol/L (136-145); Total Bilirubin 0.5 mg/dL (0.15-1.2); Total Protein 6.8 g/dL (6.6-8.7); Triglycerides 153 mg/dL (0-150)
[2024-11-16 10:07] LABS: Estmated Average Glucose 151; Hemoglobin A1C 6.9 % (4.0-6.0)
[2024-11-16 10:28] LABS: Creatinine Urine, Random 117 mg/dL (28-217); Microalbum Creatinine Ratio Ur 9 mg/dL (0-20); Microalbumin Random Urine 1 ug/dL (0-20)
== END 2024-11-16 08:50 | disposition home or self-care (01) ==
PROVIDERS: PCP Family Medicine; Visit Provider Internal Medicine
DX: E11.9 Type 2 diabetes mellitus without complications (principal); Z79.4 Long term (current) use of insulin; E78.2 Mixed hyperlipidemia; E11.59 Type 2 diabetes mellitus with other circulatory complications; I25.10 Atherosclerotic heart disease of native coronary artery without angina pectoris; E66.01 Morbid (severe) obesity due to excess calories
CPT/HCPCS: 36415; 80053; 80061; 82044; 83036; 99214

== ENCOUNTER → 2024-12-26 13:05 | Outpatient (BNVA) | payer MEDICARE, MEDICAID, SELFPAY | PROVIDERS: PCP Family Medicine; Visit Provider Registered Nurse Neonatal Intensive Care | DX: N39.0 Urinary tract infection, site not specified (principal) | CPT/HCPCS: 81000; 87086 ==

== ENCOUNTER → 2025-03-15 10:02 | Outpatient (BNVA) | payer OTHER, MEDICAID, SELFPAY | PROVIDERS: PCP Family Medicine; Visit Provider Internal Medicine | DX: I25.10 Atherosclerotic heart disease of native coronary artery without angina pectoris (principal); E78.2 Mixed hyperlipidemia; I10 Essential (primary) hypertension; E11.9 Type 2 diabetes mellitus without complications; Z79.4 Long term (current) use of insulin; Z79.85 Long-term (current) use of injectable non-insulin antidiabetic drugs; Z87.891 Personal history of nicotine dependence; Z79.82 Long term (current) use of aspirin | CPT/HCPCS: 99213 ==

== ENCOUNTER 2025-05-17 10:33 | Outpatient (CLI) | payer OTHER, MEDICAID, SELFPAY ==
[2025-05-17 11:47] LABS: Alanine Aminotransferase 9 U/L (0-33); Albumin Level 3.5 g/dL (3.5-5.2); Alkaline Phosphatase 146 U/L (35-105); Anion Gap 15.2 (5-19); Aspartate Amino Transferase 11 U/L (0-32); Blood Urea Nitrogen 11 mg/dL (8-23); Calcium 9.0 mg/dL (8.5-10.5); Carbon Dioxide 29 mmol/L (22-29); Chloride 102 mmol/L (98-107); Globulin 3.3 g/dL (1.3-4.6); Glucose 177 mg/dL (65-115); Osmolality Calculated 298 mOsm/kg (285-295); Potassium 4.2 mmol/L (3.5-5.1); Sodium 142 mmol/L (136-145); Total Protein 6.8 g/dL (6.6-8.7)
[2025-05-17 11:54] LABS: Creatinine Urine, Random 156 mg/dL (28-217)
[2025-05-17 11:55] LABS: Microalbum Creatinine Ratio Ur 96 mg/dL (0-20)
[2025-05-17 12:11] LABS: Estmated Average Glucose 128; Hemoglobin A1C 6.1 % (4.0-6.0)
== END 2025-05-17 10:34 | disposition home or self-care (01) ==
LOC: LAB 10:36
PROVIDERS: PCP Family Medicine; Visit Provider Internal Medicine
DX: Z79.4 Long term (current) use of insulin (principal); E11.9 Type 2 diabetes mellitus without complications; E11.59 Type 2 diabetes mellitus with other circulatory complications; I25.10 Atherosclerotic heart disease of native coronary artery without angina pectoris; E78.2 Mixed hyperlipidemia; E66.01 Morbid (severe) obesity due to excess calories
CPT/HCPCS: 36415; 80053; 82044; 83036

== ENCOUNTER 2025-05-21 18:31 | Inpatient (IN) | payer OTHER, MEDICAID, SELFPAY ==
--- OUTSIDE RECORDS SUMMARY | 2025-05-21 18:36 | XMS_ITS | Encounter Summary ---
Author Organization [facility] Address [address] [place] [address] Care Team Providers Care Dermatology Physician Name Role Phone Leah Millard DO Primary Care Provider [phone] Encounter Details Date Type Department Care Team (Late Contact Info) Description 05/16/2025 External Device Data [place] ABSTRACTION Provider, Abstract NO ADDRESS ON FILE Social History Tobacco Use Types Packs/Day Years Used Date Smoking Tobacco: Former Cigarettes 1 25 0 10/23/1995 - 10/23/2020 Passive Smoke Exposure: Past Smokeless Tobacco: Never Alcohol Use Standard Drinks/Week Comments No 0 (1 standard drink = 0.6 oz pur e alcohol) Feeling Safe Answer Date Recorded Are you in a relationship wi th someone who hurts you emotionally and/or physically? 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 [employer] Gender Identity Not on file Sexual Orientation Not on file documented as of this encounter Plan of Treatment Upcoming Encounters Date Type Department Care Team (Late st Contact Info) Description 05/31/2025 9:20 AM CDT Office Visit [facility] [address] [facility] [place] [phone] Leah Millard DO [address] [facility] [phone] 08/30/2025 2:40 PM BUFFING WHEEL [employer]ER Office Visit [facility] [address] [facility] [place] [address] Leah Millard DO [address] [place] [address] 11/28/2025 10:40 AM CDT Office Visit [facility] [address] [place] [address] Leah Millard DO [address] [facility] [place] [phone] documented as of this encounter Visit Diagnoses Not on filedocumented in this encounter Additional Health Concerns Assessment Noted Time PHQ-9 Depression Total Score: 2 10/11/19 25 12:26 PM BU[employer]ING WHEEL [employer] documented as of this encounter Care Teams Dermatology Physician Relationship Specialty Start Date End Date Leah Millard DO [address] [facility] [place] [phone] PCP - General Family Practice 10/05/18 documented as of this encounter
--- OUTSIDE RECORDS SUMMARY | 2025-05-21 18:36 | XMS_ITS | Clinical Summary ---
Author Organization [facility] [place] [facility] Address [address] [facility] [place] [address] Care Team Providers Care Pony Ride Attendant Name Role Phone Aminata Millardorah Anne [facility] Primary Care Provider [phone] Allergies Active Allergy Reactions Criticality Noted Date Comments Cefaclor Hives High 08/13/2016 Cephalexin Hives High 10/05/2018 Clindamycin Rash,Nausea and Vomiting High 02/24/2024 Clonazepam Hives High 10/05/2018 Doxepin Hives High 09/16/2022 Doxycycline Seizure High 10/05/2018 Glyburide Unknown Low 10/05/2018 Other reaction(s): Rash Hydroxyzine Pamoate Other (See Comments) 2021 Made her blood pressure go up Iodine Dizziness Low 04/02/2022 Ketorolac Hives High 08/13/2016 Metformin Diarrhea Low 01/28/2021 Ofloxacin Unknown 10/05/2018 Penicillins Rash,Fever Low 10/05/2018 Other reaction(s): Rash, Seizures Sulfa (Sulfonamide Antibiotics) Hives High 05/29/2015 Other reaction(s): Hives, Other reaction(s): Hives Sulfasalazine Hives High 08/29/2015 Tramadol Hives High 10/05/2018 Medications cholecalciferol, Vitamin D3, (VITAMIN D3) 25 mcg (1,000 unit) Capsule Take 1,000 Units by mouth daily. Active vilazodone (VIIBRYD) 40 mg Tablet Take 40 mg by mouth daily. 09/16/19 23 Active docusate sodium (COLACE) 100 mg capsuleIndications: Slow transit constipation Take 2 Capsules (200 mg) by mouth 2 times daily. 180 Capsule 4 03/26/20 23 Active Blood-Glucose Meter,Continuous (Dexcom G7 Workday Director) Use to test blood sugars continuously. She has to do multiple shots of insulin daily and hard to control 1 Each 05/15/20 23 Active power wheelchairIndicatio ns:Chronic midline low back pain with right-sided sciatica,Type 2 diabetes mellitus with stage 3a chronic kidney disease, with long-term current use of insulin ([facility]),Essential hypertension,Essent ial tremor,Atherosclero sis of [place]andre[place] coronary artery of [place] heart without angina pectoris,Multiple sclerosis (CMS/HCC),History of CVA with residual deficit,Chronic respiratory failure with hypoxia and hypercapnia ([facility]/HCC),Chronic obstructive pulmonary disease, unspecified COPD type (CMS/HCC),History of non-ST elevation myocardial infarction (NSTEMI) Face to Face completed within 6 months: yes Length of Need: 99 months 1 Each 05/15/20 23 Active mupirocin (BACTROBAN) 2 % OintmentIndications :Cellulitis of lower extremity, unspecified laterality,Insect bite of right lower extremity, initial encounter Apply to affected area daily. 15 Gram 1 06/17/20 23 Active albuterol (PROVENTIL,VENTOLIN ) 2.5 mg /3 mL (0.083 %) Solution for NebulizationIndicat ions:Chronic obstructive pulmonary disease, unspecified COPD type (CMS/HCC),Chronic respiratory failure with hypoxia and hypercapnia (CMS/HCC) Take 3 mL (2.5 mg) by inhalation every 6 hours as needed for Shortness of Breath or Wheezing. Dispense box of 25 3 mL 1 07/07/20 23 Active budesonide-formoter oL (SYMBICORT) 160-4.5 mcg/actuation HFA Aerosol InhalerIndications: Chronic obstructive pulmonary disease, unspecified COPD type (CMS/HCC),Chronic respiratory failure with hypoxia and hypercapnia (CMS/HCC) Take 2 Puffs by inhalation 2 times daily. 1 Gram 6 07/07/20 23 Active traZODone (DESYREL) 150 mg tablet TAKE 1 TO 2 TABLETS BY MOUTH AT BEDTIME NEEDED FOR INSOMNIA 06/09/20 23 Active ALPRAZolam (Xanax) 0.5 mg tabletIndications:S ituational anxiety Take 1 Tablet (0.5 mg) by mouth 1 time daily as needed for Anxiety. 30 Tablet 09/10/20 23 Active meclizine (ANTIVERT) 25 mg tabletIndications:D izziness Take 1 Tablet (25 mg) by mouth 3 times daily as needed for Dizziness. 30 Tablet 2 10/02/19 24 Active aspirin (MAHNAZ CHEWABLE) 81 mg Tablet, Chewable Take 81 mg by mouth daily. Active rimegepant (Nurtec ODT) 75 mg Tablet, Rapid Dissolve Take 1 Tablet (75 mg) by mouth 1 time daily as needed for Other (See Comment) (migraine). 27 Tablet 4 11/17/19 24 Active pantoprazole (PROTONIX) 40 mg Tablet, Delayed Release (E.C.) Take 1 tablet by mouth twice daily 180 Tablet 4 12/17/19 24 Active HumuLIN-R U-500, Conc, Kwikpen 500 unit/mL (3 mL) penIndications:Type 2 diabetes mellitus with stage 3a chronic kidney disease, with long-term current use of insulin (CMS/HCC) Inject 250 Units by subcutaneous injection 3 times daily. 30 mL 6 07/28/20 24 Active albuterol sulfate HFA 90 mcg/actuation aerosol inhalerIndications: Chronic obstructive pulmonary disease, unspecified COPD type (CMS/HCC),Chronic respiratory failure with hypoxia and hypercapnia (CMS/HCC) Take 2 Puffs by inhalation every 6 hours as needed for Shortness of Breath. 8.5 Gram 6 08/10/20 24 Active metoprolol tartrate (LOPRESSOR) 50 mg tablet Take 1 tablet by mouth twice daily 180 Tablet 3 09/29/19 25 Active tirzepatide (Mounjaro) 15 mg/0.5 mL Pen Injector Use 15mg SQ every 7 days 3 mL 10/11/19 25 Active atorvastatin (LIPITOR) 80 mg tabletIndications:M ixed hyperlipidemia Take 1 tablet by mouth once daily 100 Tablet 3 10/20/19 25 Active cetirizine (ZyrTEC) 10 mg tabletIndications:E nvironmental and seasonal allergies Take 1 Tablet (10 mg) by mouth daily. 90 Tablet 3 12/14/19 25 Active pregabalin (LYRICA) 100 mg Capsule Take 1 Capsule (100 mg) by mouth 2 times daily. 60 Capsule 5 01/09/20 25 Active portable oxygenIndications:P anlobular emphysema (CMS/HCC),Chronic respiratory failure with hypoxia and hypercapnia (CMS/HCC) Face to Face completed within 30 days: yes Length of Need: 99 months By: Nasal Cannula Continuously at 3 L/min. 1 Each 01/13/20 25 Active ARIPiprazole (ABILIFY) 15 mg tablet Take 15 mg by mouth daily. Active oxyBUTYnin (DITROPAN) 5 mg tablet Take 1 Tablet (5 mg) by mouth daily at bedtime. 30 Tablet 2 02/15/20 25 Active ondansetron (ZOFRAN ODT) 4 mg Tablet, Rapid Dissolve Take 1 Tablet (4 mg) by mouth every 6 hours as needed for Nausea/Emesis. Dissolve tablet on top of tongue, then swallow with saliva. 30 Tablet 6 02/15/20 25 Active amLODIPine (NORVASC) 2.5 mg tablet Take 1 Tablet (2.5 mg) by mouth daily. 90 Tablet 4 03/01/20 25 Active clobetasoL (TEMOVATE) 0.05 % CreamIndications:Pl aque psoriasis APPLY CREAM TOPICALLY TO AFFECTED AREA TWICE DAILY 45 Gram 3 03/06/20 25 Active spironolactone (ALDACTONE) 25 mg tabletIndications:E ssential hypertension Take 1 Tablet (25 mg) by mouth daily. 100 Tablet 3 03/15/20 25 Active mirabegron (MYRBETRIQ) 25 mg Extended Release 24 hour tabletIndications:O AB (overactive bladder) Take 1 Tablet (25 mg) by mouth daily. 30 Tablet 2 03/30/20 25 Active oxyCODONE (ROXICODONE) 10 mg tabletIndications:C hronic midline low back pain with right-sided sciatica Take 1 Tablet (10 mg) by mouth 3 times daily as needed for Pain, Moderate. Max Daily Amount: 30 mg 90 Tablet 04/02/20 25 Active nitrofurantoin (MACROBID) 100 mg capsuleIndications: Recurrent UTI Take 1 Capsule (100 mg) by mouth daily. 30 Capsule 4 04/03/20 25 Active Blood-Glucose Sensor (Dexcom G7 Sensor) Device USE DIRECTED AND CHANGE EVERY 10 DAYS 3 Each 04/16/20 25 Active lidocaine (LIDODERM) 5 % Adhesive Patch, Medicated USE 1 TO 3 PATCHES EXTERNALLY TO AFFECTED AREA EVERY 24 HOURS 90 Patch 2 04/18/20 Active Active Problems Problem Noted Date Diagnosed Date Severe obesity (BMI 35.0-39.9) with comorbidity 02/14/2025 Chronic midline low back pain with right-sided s ciatica 01/21/2023 Chronic respiratory failure with hypoxia and hyp ercapnia 01/21/2023 Recurrent UTI 09/07/2021 Abnormality of gait and mobility 04/10/2021 History of kidney stones 04/10/2021 History of COVID-19 04/10/2021 Insomnia due to medical condition 04/10/2021 OAB (overactive bladder) 03/13/2021 History of CVA with residual deficit 01/19/2021 Essential tremor 01/19/2021 History of non-ST elevation myocardial infarctio n (NSTEMI) 12/12/2020 Bilateral kidney stones 01/01/2020 Seasonal allergic rhinitis due to pollen 020 Morbid obesity with body mass index of 40.0-49.9 11/02/2019 Primary insomnia 03/02/2018 Generalized anxiety disorder 03/02/2018 Mixed hyperlipidemia 12/22/2017 Mixed stress and urge urinary incontinence 03/03 Degenerative disc disease, cervical 08/20/2016 Overview (01/10/2021): Last Assessment & Plan: Will place pt in a soft collar for comfort. Recommend Decadron 10 mg xx 1 dose and 4 mg q 6 x 3 doses. Continue PT/OT. Await CT scan results. 08/21/2016 The pt reports pain in better in neck and arm less pain and numbness. She just returned from a spinal tap in IR and is c/o [employer] and nausea. Reports earlier today felt more steady when ambulated with therapy. Was able to ambulate stairs independently. Bilateral deafness 04/09/2016 Multiple sclerosis 04/09/2016 Overview (01/10/2021): Last Assessment & Plan: Currently in process of work up. Pt currently on Tecfidera. 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 05/29/2015 10/17/2024 Encounters Date Type Department Care Team Description 05/16/2025 External Device Data [facility] ABSTRACTION Provider, Abstract 05/16/2025 External Device Data [facility] ABSTRACTION Provider, Abstract 05/04/2025 Refill [facility] [address] [place] [address] Gaxiola, December, HEAD ORTHOPEDIC TEAM PHYSICIAN Recurrent UTI 05/04/2025 Refill [facility] [address] [place] [address] Leah Millard, DO 05/02/2025 Medication Prior Auth Encounter [facility] [address] [place] [address] Karen Rodrigues 05/01/2025 Telephone [facility] [address] [place] [address] Leah Millard, DO Medication Question; Medication Authorization; Medication Assistance 04/19/2025 External Device Data ST[facility] ABSTRACTION Provider, Abstract 04/18/2025 Refill [facility] [address] [place] [address] Leah Millard, DO 04/16/2025 Refill [facility] [address] [place] [address] Leah Millard, DO 04/05/2025 Refill [facility] [address] [place] [address] Leah Millard, DO 04/04/2025 External Device Data ST[facility] ABSTRACTION Provider, Abstract 04/03/2025 Results Follow-Up [facility] [address] [place] [address] Gaxiola, December, HEAD ORTHOPEDIC TEAM PHYSICIAN URINE CULTURE 03/30/2025 12:00 PM CDT Office Visit [facility] [address] [place] [address] Gaxiola, December, HEAD ORTHOPEDIC TEAM PHYSICIAN Acute cystitis without hematuria (Primary Dx); Skin tear of hand without complication, initial encounter; Screening mammogram, encounter for; OAB (overactive bladder) 03/30/2025 Refill [facility] [address] [place] [address] Leah Millard, Chronic midline low back pain with right-sided sciatica 03/29/2025 External Device Data STL ABSTRACTION Provider, Abstract 03/19/2025 Refill [facility] [address] [place] [address] Leah Millard DO 03/15/2025 Refill [facility] [address] [place] [address] Leah Millard, Essential hypertension (Primary Dx) 03/06/2025 Refill [facility] [address] [place] [address] Leah Millard, DO Plaque psoriasis 03/01/2025 Telephone [facility] [address] [place] [address] Leah Millard, DO Medication Assistance 03/01/2025 Refill [facility] [address] [place] [address] Leah Millard, DO Chronic midline low back pain with right-sided sciatica from Last 3 Months Immunizations Immunization Administration Dates Next Due (PNEUMOVAX 23)(50 YRS UP) PN EUMOCOCCAL POLYSACCHARIDE (PPV23) 0.5 ML, IM 12/27/2018 (PREVNAR 13)(6 WKS UP) PNEUM OCOCCAL CONJUGATE (PCV13) 0.5 ML, IM 04/09/2016 (VARZIG) VARICELLA ZOSTER IM MUNE GLOBULIN 125 IU/1.2 ML, IM 06/30/2014 INFLUENZA VACCINE QUADRIVALE NT 6 MOS UP CELL DERIVED PF IM 06/17/2017 INFLUENZA VACCINE QUADRIVALE NT 6 MOS UP IM 06/11/2016 INFLUENZA VACCINE QUADRIVALE NT 6 MOS UP PF IM 06/04/2023,06/03/2022,07/08/2021,06/26,06/11/2018 INFLUENZA VACCINE TRIVALENT SPLIT VIRUS, (6 MOS UP), 0.5ML (PF), IM 05/25/2024 Influenza Vaccine 18+ C.derived Pf Im 06/17/2017 Influenza Vaccine Split 3+ Yrs IM 06/15/2019 Family History Medical History Relation Name Comments Heart Disease Brother 1 Max Freyermuth Heart Disease Brother 2 Cj Freyermuth Heart Disease Brother 3 Martin Freyermuth Cancer Father Rob Everettmuth Colon Cancer Father Rob Keenanyermuth Heart Disease Father Rob Everettmuth Hypertension Father Rob Everettmuth Other Father Rob Gunter Parkinson di sease Depression Mother Margi Gunter Mental illness Mother Margi Gunter Other Mother Margi Gunter Parkison disease Colon Cancer Other SELF Relation Name Status Comments Brother 1 Max Freyermuth Alive Brother 2 Cj Everettmuth Brother 3 Martin Freyermuth Father Rob Gunter Mother Margi Gunter Alive Other SELF Alive Social History Tobacco Use Types Packs/Day Years Used Date Smoking Tobacco: Former Cigarettes 1 25 0 10/23/1995 - 10/23/2020 Passive Smoke Exposure: Past Smokeless Tobacco: Never Tobacco Cessation:Counseling Given: No Alcohol Use Standard Drinks/Week Comments No 0 (1 standard drink = 0.6 oz pur e alcohol) Feeling Safe Answer Date Recorded Are you in a relationship wi th someone who hurts you emotionally and/or physically? No 03/19/2023 Comments No Sex and Gender Information Value Date Recorded Sex Assigned at Not on file Legal Sex Female 6:02 AM CUSTOMER SUPPORT AGENT Gender Identity Not on file Sexual Orientation Not on file Last Filed Vital Signs Vital Sign Reading Time Taken Comments Blood Pressure 130/68 03/30/2025 11:49 AM CDT Pulse 78 03/30/2025 11:49 AM CDT Temperature 36.3 C (97.3 F) 03/30/2025 11:49 AM CDT Respiratory Rate 18 03/30/2025 11:4 9 AM CDT Oxygen Saturation 96% 03/30/2025 11: 49 AM CDT Inhaled Oxygen Concentration - - Weight 111.8 kg (246 lb 6.4 oz) 025 11:49 AM CDT Height 167.6 cm (5' 6 ) 03/30/2025 11:4 9 AM CDT Body Mass Index 39.77 03/30/2025 11:49 AM CDT Plan of Treatment Upcoming Encounters Date Type Department Care Team (Late st Contact Info) Description 05/31/2025 9:20 AM CDT Office Visit [facility] [address] [place] [address] Leah Millard, DO [address] [place] [address] 08/30/2025 2:40 PM CUSTOMER SUPPORT AGENT Office Visit [facility] [address] [place] [address] Leah Millard, DO [address] [place] [address] 11/28/2025 10:40 AM CDT Office Visit [facility] [address] [place] [address] Leah Millard, DO [address] [place] [address] Health Maintenance Due Date Last Done Comments DTAP/TDAP/TD VACCINES (1 - Tdap) 1978 Lung Cancer Screening 2009 RSV VACCINE (60+ or ) (1 - Risk 60-74 years 1-dose series) 2019 DIABETES ANNUAL FOOT EXAM 12/05/20222021, 12/12/2020, 12/27/2018, Additional history exists PNEUMOCOCCAL VACCINE 50+ YEA RS (3 of 3 - PCV20 or PCV21) 12/28/2023 12/27/2018, 04/09/2016 ZOSTER VACCINE (3 of 3) 02/17/2024 12/23/2023, 06/30 OSTEOPOROSIS SCREENING 2024 BREAST CANCER SCREENING 03/23/2025 03/23/20, 01/05/2019, 01/05/2019 DIABETES HBA1C Q 6 MONTHS 04/10/20252024, 05/25/2024, 03/02/2024, Additional history exists INFLUENZA VACCINE (#1) 2025 , 06/04/2023, 06/03/2022, Additional history exists COVID-19 Vaccine (4 - 2024-2 6 season) 2025 08/13/2021, 02/04/2021, 01/07/2021 DIABETES: A1C (Auto Order) 10/11/202510/11, 05/25/2024, 03/02/2024, Additional history exists LDL CHOLESTEROL ANNUAL 10/11/2025 , 05/25/2024, 03/02/2024, Additional history exists Traditional Medicare (ACO) A nnual Wellness Visit 10/12/2025 10/11/2024 DIABETES MICROALBUMIN ANNUAL SCREEN 11/08/2025 11/08/2024, 03/02/2024, 10/05/2018 DIABETES ANNUAL RETINAL EXAM 12/20/202504/2025, 07/06/2024, 01/22/2021 COLORECTAL SCREENING Discontinued 04/04/2020 Colorectal Cancer Screening Discontinued KHE eGFR (Auto Order) Completed 10/11/2024 , 06/07/2024, 05/27/2024, Additional history exists Medicare Advantage ([place]) Preventative Visit/Annual Wellness Visit Completed 10/11/2024 KHE uACR (Auto Order) Completed 02/14/2025 , 11/08/2024, 03/02/2024, Additional history exists FIT-DNA Q 3 years Discontinued FIT/FOBT Q 1 year Discontinued Flex Sig/CT Colonography Q 5 years Discontinued Procedures Procedure Name Priority Date/Time Associated Diagnosis Comments URINE CULTURE Routine 03/30/2025 12:38 PM CDT Acute cystitis without hematuria DIABETES EYE EXAM Routine 12/20/2024 10:14 AM CDT MICROALBUMIN/CREATININ E RATIO, RANDOM UR Routine 11/08/2024 2:52 PM CUSTOMER SUPPORT AGENT Type 2 diabetes mellitus with stage 3a chronic kidney disease, with long-term current use of insulin ([facility]/HCC) COMPREHENSIVE METABOLIC PANEL Routine 10/11/2024 1:16 PM CUSTOMER SUPPORT AGENT Type 2 diabetes mellitus with stage 3a chronic kidney disease, with long-term current use of insulin ([facility]) LIPID PANEL Routine 10/11/2024 1:16 PM CUSTOMER SUPPORT AGENT Type 2 diabetes mellitus with stage 3a chronic kidney disease, with long-term current use of insulin ([facility]) HEMOGLOBIN A1C Routine 10/11/2024 1:16 PM CUSTOMER SUPPORT AGENT Type 2 diabetes mellitus with stage 3a chronic kidney disease, with long-term current use of insulin ([facility]) MAMMO 3D BON SCREEN BILAT W OR WO CAD Routine 03/23/2024 9:51 AM CDT Screening mammogram, encounter for ENDOSCOPY, COLON, SCREENING 04/04/2020 12:00 AM CDT DIABETES FOOT EXAM 12/27/2018 12:00 AM CDT from Last 3 Months or Most Recently Relevant to Health Maintenance Results * (ABNORMAL) URINE CULTURE (03/30/2025 12:38 PM CDT) URINE CULTURE SEE NOTE(A) [facility] Comment: CULTURE, URINE, ROUTINE Micro Number: [id number] Test Status: Final Specimen Source: Urine, clean catch Specimen Quality: Adequate Result: Greater than 100,000 CFU/mL of Escherichia coli E.coli INT ANNALEE AMOX/CLAVULANATE S <=2 AMP/SULBACTAM S <=2 CEFAZOLIN NR <=1 2 CEFEPIME S <=0.12 CEFTAZIDIME S <=0.5 CEFTRIAXONE S <=0.25 CIPROFLOXACIN S <=0.06 GENTAMICIN S <=1 IMIPENEM S <=0.25 LEVOFLOXACIN S <=0.12 MEROPENEM S <=0.25 NITROFURANTOIN S <=16 PIP/TAZOBACTAM S <=4 TRIMETHOPRIM/SULFA S <=20 S = Susceptible I = Intermediate R = Resistant NS = Not susceptible SDD = Susceptible Dose Dependent * = Not Tested NR = Not Reported NN = See Therapy Comments THERAPY COMMENTS Note 1: For infections other than uncomplicated UTI caused by E. coli, K. pneumoniae or P. mirabilis: Cefazolin is resistant if ANNALEE > or = 8 mcg/mL. (Distinguishing susceptible versus intermediate for isolates with ANNALEE < or = 4 mcg/mL requires additional testing.) Note 2: For uncomplicated UTI caused by E. coli, K. pneumoniae or P. mirabilis: Cefazolin is susceptible if ANNALEE <32 mcg/mL and predicts susceptible to the oral agents cefaclor, cefdinir, cefpodoxime, cefprozil, cefuroxime, cephalexin and loracarbef. Test Performed at: [facility] (?)[place] [address] [place] [id number] Funmi Medellin MD Urine URINE SPECIMEN OBTAINED BY CLEAN CATCH PROCEDURE / Unknown 03/30/2025 12:38 PM CDT 03/31/2025 3:02 AM CDT December Gaxiola HEAD ORTHOPEDIC TEAM PHYSICIAN MICROBIOLOGY - GENERAL ORDERABLE S Final Result [facility] [phone] [address] * HM DIABETES EYE EXAM (12/20/2024 10:14 AM CDT) Abstract Provider HEALTH MAINTENANCE Edited Resu lt - Final * MICROALBUMIN/CREATININE RATIO, RANDOM UR (11/08/2024 2:52 PM CUSTOMER SUPPORT AGENT) Creatinine, Urine 135 20 - 275 mg/dL [facility] MICROALBUMIN, URINE 0.7 See Note: mg/dL [facility] Comment: Reference Range: Reference Range Not established MICROALBUMIN/CREAT RATIO, UR 5 <30 mg/g creat [facility] Comment: The ADA defines abnormalities in albumin excretion as follows: Albuminuria Category Result (mg/g creatinine) Normal to Mildly increased <30 Moderately increased 30-299 Severely increased > OR = 300 The ADA recommends that at least two of three specimens collected within a 3-6 month period be abnormal before considering a patient to be within a diagnostic category. Test Performed at: [facility] [address] [place] [address] Funmi Medellin MD Urine URINE SPECIMEN OBTAINED BY CLEAN CATCH PROCEDURE / Unknown 11/08/2024 2:52 PM CUSTOMER SUPPORT AGENT 11/09/2024 5:16 AM CUSTOMER SUPPORT AGENT us Leah Millard DO URINE ORDERABLES Final Resu lt [facility] [phone] [facility] ([facility] [address] [place] [address] * (ABNORMAL) HEMOGLOBIN A1C (10/11/2024 1:16 PM CUSTOMER SUPPORT AGENT) HEMOGLOBIN A1C 6.9(H) <5.7 % of total Hgb [facility] Comment: For someone without known diabetes, a hemoglobin A1c value of 6.5% or greater indicates that they may have diabetes and this should be confirmed with a follow-up test. For someone with known diabetes, a value <7% indicates that their diabetes is well controlled and a value greater than or equal to 7% indicates suboptimal control. A1c targets should be individualized based on duration of diabetes, age, comorbid conditions, and other considerations. Currently, no consensus exists regarding use of hemoglobin A1c for diagnosis of diabetes for children. ESTIMATED AVERAGE GLUCOSE (MG/DL) 151 mg/dL [facility] ESTIMATED AVERAGE GLUCOSE (MMOL/L) 8.4 mmol/L [facility] Comment: Test Performed at: [facility] [address] [place] [address] Funmi Medellin MD Blood 10/11/2024 1:16 PM CUSTOMER SUPPORT AGENT 10/12/2024 5:47 AM CUSTOMER SUPPORT AGENT Leah Millard DO CHEMISTRY ORDERABLES Final Result [facility] [phone] [facility] [place] [place] [address] * (ABNORMAL) LIPID PANEL (10/11/2024 1:16 PM CUSTOMER SUPPORT AGENT) CHOLESTEROL 154 <200 mg/dL [facility] HDL 35(L) > OR = 50 mg/dL [facility] TRIGLYCERIDE 162(H) <150 mg/dL [facility] LDL CALCULATED 93 mg/dL (calc) [facility] Comment: Reference range: <100 Desirable range <100 mg/dL for primary prevention; <70 mg/dL for patients with CHD or diabetic patients with > or = 2 CHD risk factors. LDL-C is now calculated using the Jeffrey-Judah calculation, which is a validated novel method providing better accuracy than the Friedewald equation in the estimation of LDL-C. Jeffrey SS et al. BRIANNA. 2013;310(19): 0945-5170 (http://education.FortyCloud.Majitek/faq/OVH391) CHOL/HDL RATIO 4.4 <5.0 (calc) [facility] NON-HDL CHOLESTEROL 119 <130 mg/dL (calc) [facility] Comment: For patients with diabetes plus 1 major ASCVD risk factor, treating to a non-HDL-C goal of <100 mg/dL (LDL-C of <70 mg/dL) is considered a therapeutic option. Test Performed at: [facility] [address] [place] [address] Funmi Medellin MD Blood 10/11/2024 1:16 PM CUSTOMER SUPPORT AGENT 10/12/2024 5:47 AM CUSTOMER SUPPORT AGENT us Leah Millard DO CHEMISTRY ORDERABLES Final Result [facility] [phone] [facility] [address] [address] [address] * (ABNORMAL) COMPREHENSIVE METABOLIC PANEL (10/11/2024 1:16 PM CUSTOMER SUPPORT AGENT) GLUCOSE 103(H) 65 - 99 mg/dL [facility] Comment: Fasting reference interval For someone without known diabetes, a glucose value between 100 and 125 mg/dL is consistent with prediabetes and should be confirmed with a follow-up test. BUN 8 7 - 25 mg/dL [facility] CREATININE 1.16(H) 0.50 - 1.05 mg/dL [facility] GFR 52(L) > OR = 60 mL/min/1.7 3m2 [facility] BUN/CREAT RATIO 7 6 - 22 (calc) [facility] SODIUM 140 135 - 146 mmol/L [facility] POTASSIUM 4.6 3.5 - 5.3 mmol/L [facility] CHLORIDE 97(L) 98 - 110 mmol/L [facility] CO2 31 20 - 32 mmol/L [facility] CALCIUM 9.2 8.6 - 10.4 mg/dL [facility] TOTAL PROTEIN 6.9 6.1 - 8.1 g/dL [facility] ALBUMIN 3.7 3.6 - 5.1 g/dL [facility] GLOBULIN 3.2 1.9 - 3.7 g/dL (calc) [facility] ALBUMIN/GLOBULIN RATIO 1.2 1.0 - 2.5 (calc) [facility] BILIRUBIN TOTAL 0.5 0.2 - 1.2 mg/dL [facility] ALKALINE PHOSPHATASE 121 37 - 153 U/L [facility] AST 13 10 - 35 U/L [facility] ALT 10 6 - 29 U/L [facility] Comment: Test Performed at: [facility] [address] [phone] Funmi Medellin MD Blood 10/11/2024 1:16 PM CUSTOMER SUPPORT AGENT 10/12/2024 5:47 AM CUSTOMER SUPPORT AGENT us Leah Millard DO CHEMISTRY ORDERABLES Final Result [facility] [phone] [facility] [address] [address] [address] * MAMMO 3D BON SCREEN BILAT W OR WO CAD (03/23/2024 9:51 AM CDT) Anatomical Region Laterality Modality Breast Bilateral Mammography, Dig ital Radiography Impressions 03/27/2024 2:00 PM CDT : No mammographic evidence of malignancy. BI-RADS ASSESSMENT: 1 - Negative RECOMMENDATION: Routine annual screening mammography. Narrative 03/27/2024 2:00 PM CDT EXAM: MAMMO SCRN BILAT 3D BON W OR WO CAD INDICATION: Screening COMPARISON: 01/05/2019 MAMMO PRIOR STUDY and 09/05/2013 MAMMO PRIOR STUDY BREAST COMPOSITION: There are scattered areas of fibroglandular density. The patient had difficultly with positioning. The best images were sent. FINDINGS: RIGHT BREAST: There are no suspicious masses, calcifications, or areas of architectural distortion. LEFT BREAST: There are no suspicious masses, calcifications, or areas of architectural distortion. us Nighat Sharpe HEAD ORTHOPEDIC TEAM PHYSICIAN MAMMO ORDERABLES Final Res ult * ENDOSCOPY, COLON, SCREENING (04/04/2020 12:00 AM CDT) us Sgf Scanning GI PROCEDURE ORDERABLES Final Re sult * HM DIABETES FOOT EXAM (12/27/2018 12:00 AM CDT) Marleni Micaela Zimmer HEAD ORTHOPEDIC TEAM PHYSICIAN HEALTH MAINTENANCE Final Result from Last 3 Months or Most Recently Relevant to Health Maintenance Insurance MEDICAID [facility] DUAL COMPLETE HMO [facility] [id number] Care Teams Pony Ride Attendant Relationship Specialty Start Date End Date Leah Millard DO [address] [place] [address] PCP - General Family Practice 10/05/18
--- OUTSIDE RECORDS SUMMARY | 2025-05-21 18:36 | XMS_ITS | Encounter Summary ---
Author Organization [facility] Address [address] [place] [address] Care Team Providers Care Technical Laboratory Asst Name Role Phone Leah Millard DO Primary Care Provider [phone]- [phone] Encounter Details Date Type Department Care Team (Late Contact Info) Description 04/03/2025 Results Follow-Up [facility] [address] [place] [address] December, [facility] [address] [place] [address] URINE CULTURE Social History Tobacco Use Types Packs/Day Years [...] on file Legal Sex Female 6:02 AM PERIPATOLOGIST Gender Identity Not on file Sexual Orientation Not on file documented as of this encounter Plan of Treatment Upcoming Encounters Date Type Department Care Team (Late st Contact Info) Description 05/31/2025 9:20 AM CDT Office Visit [facility] [address] [place] [address] Leah Millard DO [address] [facility] [place] [place] [phone] 08/30/2025 2:40 PM PERIPATOLOGIST Office Visit [facility] [address] [facility] [place] [phone] Leah Millard, DO [address] [place] [phone] 11/28/2025 10:40 AM CDT Office Visit [facility] [address] [facility] [place] [phone] Leah Millard, DO [address] [place] [phone] documented as of this encounter Visit Diagnoses Diagnosis Recurrent UTI- Primary Urinary tract infection, site not specified documented in this encounter Additional Health Concerns Assessment Noted Time PHQ-9 Depression Total Score: 2 10/11/19 25 12:26 PM PERIPATOLOGIST documented as of this encounter Care Teams Technical Laboratory Asst Relationship Specialty Start Date End Date Leah Millard DO [address] [place] [phone] PCP - General Family Practice 10/05/18 documented as of this encounter
--- OUTSIDE RECORDS SUMMARY | 2025-05-21 18:36 | XMS_ITS | Clinical Summary ---
Author Organization [facility] Address [address] [place] [address] Care Team Providers Care Mechanic Foreman Name Role Phone Leah Millard Primary Care Provider Allergies Active Allergy Reactions Criticality Noted Date Comments Cefaclor Hives High 10/05/2018 Cephalexin Hives High 10/05/2018 Clonazepam Hives High 10/05/2018 Doxycycline Seizure High 10/05/2018 Glyburide Unknown Low 10/05/2018 Other reaction(s): Rash Metformin Diarrhea Low 01/28/2021 Ofloxacin Unknown 10/05/2018 Penicillins Rash,Fever Low 10/05/2018 Other reaction(s): Rash, Seizures Sulfa (Sulfonamide Antibiotics) Hives High 05/29/2015 Other reaction(s): Hives Other reaction(s): Hives Sulfasalazine Hives High 08/29/2015 Tramadol Hives High 10/05/2018 Medications traZODone (DESYREL) 100 mg tablet Take 200 mg by mouth nightly as needed. Active lancets (FREESTYLE LANCETS) 28 gauge Used to check blood sugar 4 times daily. 02/12/20 18 Active albuterol (PROVENTIL,VENTOLI N) 2.5 mg /3 mL (0.083 %) Solution for Nebulization Take 1 Ampule by inhalation every 6 hours as needed. Active Blood-Glucose Meter KitIndications:Typ e 2 diabetes mellitus with hyperglycemia, with long-term current use of insulin ([facility]) Check blood sugars TID. Meter that is preferred by insurance 1 Each 05/25/20 Active lancets Inject 1 Each by subcutaneous injection 4 times daily. 100 Each 06/15/20 Active blood sugar diagnostic Strip 1 Strip 2 times daily. Use to check blood sugar 4 times daily 100 Each 06/15/20 Active ARIPiprazole (ABILIFY) 10 mg tablet Take 10 mg by mouth. 09/05/20 Active calcium as carbonate (OS-TIFFANIE) 1,250 mg (500 mg elemental) tabletIndications: Vitamin D deficiency Take 1 Tablet (500 mg) by mouth daily. 90 Tablet 3 09/28/19 20 Active nitroglycerin (Nitrostat) 0.4 mg Tablet, Sublingual Place 1 Tablet (0.4 mg) under tongue every 5 minutes as needed for Chest Pain. 25 Tablet 11 11/02/19 20 Active cloNIDine HCL (CATAPRES) 0.1 mg tabletIndications: Essential hypertension Take 1 Tablet (0.1 mg) by mouth 3 times daily as needed for Blood Pressure. 30 Tablet 2 04/23/20 Active vilazodone (VIIBRYD) 40 mg Tablet Take 1 Tablet (40 mg) by mouth daily. 90 Tablet 4 07/06/20 20 Active furosemide (LASIX) 40 mg tabletIndications: Essential hypertension Take 1 Tablet (40 mg) by mouth daily. 90 Tablet 3 08/12/20 20 Active isosorbide mononitrate (IMDUR) 30 mg Extended Release 24 hour tabletIndications: Essential hypertension,Ather osclerosis of coronary artery, angina presence unspecified, unspecified vessel or lesion type, unspecified whether [place] or transplanted heart Take 1 Tablet (30 mg) by mouth daily in the morning. 90 Tablet 3 08/13/20 20 Active cyanocobalamin 1,000 mcg TabletIndications: Vitamin B12 deficiency (non anemic) Take 1 Tablet (1,000 mcg) by mouth daily. 90 Tablet 3 08/13/20 20 Active montelukast (SINGULAIR) 10 mg tabletIndications: Chronic obstructive pulmonary disease, unspecified COPD type ([facility]) Take 1 Tablet (10 mg) by mouth daily at bedtime. 90 Tablet 4 08/13/20 20 026 Active budesonide-formote roL (SYMBICORT) 160-4.5 mcg/actuation HFA Aerosol InhalerIndications :Chronic obstructive pulmonary disease, unspecified COPD type (CMS/HCC) Take 2 Puffs by inhalation daily. 30.6 Gram 4 08/13/20 20 Active albuterol HFA 90 mcg inhalerIndications :Chronic obstructive pulmonary disease, unspecified COPD type (CMS/HCC) Take 2 Puffs by inhalation every 6 hours as needed for Shortness of Breath or Wheezing. 8.5 Gram 6 08/13/20 20 Active potassium chloride (KLOR-CON) 10 mEq Extended Release tablet Take 1 Tablet (10 mEq) by mouth daily. 90 Tablet 6 08/13/20 20 Active tiotropium (SPIRIVA) 18 mcg capsuleIndications :Chronic obstructive pulmonary disease, unspecified COPD type (CMS/HCC) Take 1 Capsule (18 mcg) by inhalation daily. 90 Capsule 4 08/13/20 20 Active shower chair DME EQUIPMENTIndicatio ns:Closed displaced comminuted fracture of left patella with routine healing, subsequent encounter by See Admin Instructions route daily. With slide to get on chair. 1 Each 08/13/20 Active ALPRAZolam (Xanax) 0.5 mg tabletIndications: Generalized anxiety disorder Take 1 Tablet (0.5 mg) by mouth 2 times daily as needed for Anxiety. 30 Tablet 10/09/19 21 Active Insulin Libby, Disposable, 32 gauge x 5/16 NeedleIndications: Type 2 diabetes mellitus with other circulatory complication, with long-term current use of insulin (CMS/HCC) Use with Soliqua pen once daily 100 Each 3 11/08/19 21 Active metoprolol tartrate (LOPRESSOR) 25 mg tablet Take 1 Tablet (25 mg) by mouth 2 times daily. 90 Tablet 3 12/01/19 21 Active spironolactone (ALDACTONE) 25 mg tablet Take 1 Tablet (25 mg) by mouth daily. 90 Tablet 3 12/01/19 21 Active pantoprazole (Protonix) 40 mg Tablet, Delayed Release (E.C.) Take 1 Tablet (40 mg) by mouth 2 times daily. 180 Tablet 3 12/01/19 21 Active nystatin (MYCOSTATIN) 100,000 unit/gram CreamIndications:Y east infection involving the vagina and surrounding area Apply to affected area 2 times daily. 30 Gram 01/23/20 21 Active propranoloL (INDERAL) 20 mg tabletIndications: Essential tremor Take 1 Tablet (20 mg) by mouth 3 times daily as needed for Other (See Comment) (tremors). 90 Tablet 1 01/23/20 Active insulin glargine-lixisenat madhavi (SOLIQUA) 100 unit-33 mcg/mL Insulin PenIndications:Yasmeen vated blood sugar,Type 2 diabetes mellitus with stage 3a chronic kidney disease, with long-term current use of insulin ([facility]) Inject 30 units SQ two times daily 15 mL 2 01/29/20 Active dapagliflozin (Farxiga) 10 mg TabletIndications: Elevated blood sugar,Type 2 diabetes mellitus with stage 3a chronic kidney disease, with long-term current use of insulin ([facility]) Take 1 Tablet (10 mg) by mouth daily. 30 Tablet 3 01/29/20 Active atorvastatin (LIPITOR) 40 mg tabletIndications: Mixed hyperlipidemia Take 1 Tablet (40 mg) by mouth daily. 90 Tablet 4 01/29/20 Active insulin lispro (HumaLOG KwikPen Insulin) 200 unit/mL pen syringeIndications :Type 2 diabetes mellitus with hyperglycemia, with long-term current use of insulin ([facility]),Type 2 diabetes mellitus with other circulatory complication, with long-term current use of insulin ([facility]) Inject subcutaneous 3 times daily PRN (sliding scale) 140-180 4 units, 181-240 6 units, 241-300 8 units, 301-350 10 units, 351-400 units 12 units, greater than 400 take 14 units and then check sugar every 30 minutes until sugar is less than 300. 9 mL 4 01/29/20 Active SITagliptin (JANUVIA) 50 mg TabletIndications: Type 2 diabetes mellitus with hyperglycemia, with long-term current use of insulin ([facility]) Take 1 Tablet (50 mg) by mouth daily with breakfast. 90 Tablet 1 02/29/20 Active oxybutynin chloride (DITROPAN) 5 mg tabletIndications: Nocturia,OAB (overactive bladder) Take 1 Tablet (5 mg) by mouth daily at bedtime. 30 Tablet 1 02/29/20 Active pregabalin (Lyrica) 75 mg Capsule Take 1 Capsule (75 mg) by mouth every 12 hours. 60 Capsule 2 03/01/20 Active fluconazole (Diflucan) 100 mg tablet Take 1 Tablet (100 mg) by mouth daily. 3 Tablet 1 03/03/20 21 Active Active Problems Problem Noted Date Diagnosed Date OAB (overactive bladder) 03/13/2021 History of CVA with residual deficit 01/19/2021 Essential tremor 01/19/2021 History of non-ST elevation myocardial infarctio n (NSTEMI) 12/12/2020 Bilateral kidney stones 01/01/2020 Seasonal allergic rhinitis due to pollen 020 Primary insomnia 03/02/2018 Generalized anxiety disorder 03/02/2018 Mixed hyperlipidemia 12/22/2017 Mixed stress and urge urinary incontinence 03/03 Degenerative disc disease, cervical 08/20/2016 Overview (10/05/2018): Last Assessment & Plan: Will place pt [...] Bilateral deafness 04/09/2016 Multiple sclerosis 04/09/2016 Overview (10/05/2018): Last Assessment & Plan: Currently in process of work up. Pt currently on Tecfidera. Essential hypertension 10/30/2015 Obstructive sleep apnea syndrome 06/25/2015 History of colon cancer 05/29/2015 Chronic obstructive pulmonary disease 05/29/2015 Atherosclerosis of [place] co ronary artery of [place] heart without angina pectoris 05/29/2015 Diabetes mellitus 05/29/2015 Resolved Problems Problem Noted Date Diagnosed Date Resolved Date Stable angina 11/02/2019 01/01/2020 Morbid obesity with body mas s index of 40.0-49.9 11/02/2019 11/08/2020 Tobacco use 11/02/2019 01/19/2021 MA (myocardial infarction) 04/09/2016 0 11/02/2019 Immunizations Immunization Administration Dates Next Due (PNEUMOVAX 23)(50 YRS UP) PN EUMOCOCCAL POLYSACCHARIDE (PPV23) 0.5 ML, IM 12/27/2018 (PREVNAR 13)(6 WKS UP) PNEUM OCOCCAL CONJUGATE (PCV13) 0.5 ML, IM 04/09/2016 (VARZIG) VARICELLA ZOSTER IM MUNE GLOBULIN 125 IU/1.2 ML, IM 06/30/2014 INFLUENZA VACCINE QUADRIVALE NT 6 MOS UP CELL DERIVED PF IM 06/17/2017 INFLUENZA VACCINE QUADRIVALENT 6 MOS UP IM 06/11 INFLUENZA VACCINE QUADRIVALENT 6 MOS UP PF IM ,06/11/2018 Influenza Vaccine 18+ C.derived Pf Im 06/17/2017 Influenza Vaccine Split 3+ Yrs IM 06/15/2019 Family History Medical History Relation Name Comments Heart Disease Brother Heart Disease Father Relation Name Status Comments Brother Alive Father Mother Alive Social History Tobacco Use Types Packs/Day Years Used Date Smoking Tobacco: Former Cigarettes 1 40 0 10/23/1980 - 10/23/2020 Smokeless Tobacco: Never Tobacco Cessation:Ready to Q uit: No; Counseling Given: Yes Alcohol Use Standard Drinks/Week Comments No 0 (1 standard drink = 0.6 oz pur e alcohol) Comments No Sex and Gender Information Value Date Recorded Sex Assigned at Not on file Legal Sex Female 4:46 AM TYPEWRITER RIBBON WINDER Gender Identity Not on file Sexual Orientation Not on file Last Filed Vital Signs Vital Sign Reading Time Taken Comments Blood Pressure 132/80 03/05/2021 4:17 PM CDT Pulse 77 03/05/2021 4:17 PM CDT Temperature 36.2 C (97.1 F) 03/05/2021 4:17 PM CDT Respiratory Rate 18 03/05/2021 4:17 PM CDT Oxygen Saturation 97% 03/05/2021 4:17 PM CDT Inhaled Oxygen Concentration - - Weight 111.6 kg (246 lb) 03/05/2021 4:17 PM CDT Height 167.6 cm (5' 6 ) 03/05/2021 4:17 PM CDT Body Mass Index 39.71 03/05/2021 4:17 PM CDT Plan of Treatment Health Maintenance Due Date Last Done Comments DTAP/TDAP/TD VACCINES (1 - Tdap) 1978 ZOSTER VACCINE (1 of 2) 2009 RSV VACCINE (60+ or ) (1 - Risk 60-74 years 1-dose series) 2019 DIABETES MICROALBUMIN ANNUAL SCREEN 10/05/2019 10/05/2018 BREAST CANCER SCREENING 01/06/2020 01/05/2019 DIABETES HBA1C Q 6 MONTHS 04/08/20212020, 06/26/2020, 03/26/2020, Additional history exists LDL CHOLESTEROL ANNUAL 10/24/2021 1, 10/09/2020, 06/26/2020, Additional history exists DIABETES ANNUAL FOOT EXAM 12/12/20212020, 12/06/2020, 12/27/2018, Additional history exists PNEUMOCOCCAL VACCINE 50+ YEA RS (3 of 3 - PCV20 or PCV21) 12/28/2023 12/27/2018, 04/09/2016 OSTEOPOROSIS SCREENING 2024 INFLUENZA VACCINE (#1) 2025 0, 06/15/2019, 06/11/2018, Additional history exists DIABETES ANNUAL RETINAL EXAM 12/20/202504/2025, 07/06/2024, 01/22/2021 Procedures Procedure Name Priority Date/Time Associated Diagnosis Comments LIPID PANEL Routine 10/24/2020 HEMOGLOBIN A1C Routine 10/09/2020 12:19 PM TYPEWRITER RIBBON WINDER Type 2 diabetes mellitus with other circulatory complication, with long-term current use of insulin ([facility]) MAMMO SCREEN BILAT W OR WO CAD Routine 01/05/2019 Screening for breast cancer HM DIABETES FOOT EXAM Routine 12/27/2018 MICROALBUMIN/CREATI NINE RATIO, RANDOM UR Routine 10/05/2018 1:32 PM TYPEWRITER RIBBON WINDER Type 2 diabetes mellitus with hyperglycemia, with long-term current use of insulin ([facility]) from Last 3 Months or Most Recently Relevant to Health Maintenance Results * LIPID PANEL (10/24/2020) ABSTRACTED CHOLESTEROL 138 EXTERNAL LAB ABSTRACTED TRIGLYCERIDE 172 EXTERNAL LAB ABSTRACTED HDL 33 EXTERNAL LAB ABSTRACTED LDL CALCULATED 71 EXTERNAL LAB CHOLESTEROL EXTERNAL LAB TRIGLYCERIDE EXTERNAL LAB HDL EXTERNAL LAB LDL CALCULATED EXTERNAL LAB Blood 10/24/2020 Abstract Spg Provider CHEMISTRY ORDERABLES Final Result EXTERNAL LAB * HEMOGLOBIN A1C (10/09/2020 12:19 PM TYPEWRITER RIBBON WINDER) HEMOGLOBIN A1C 5.3 See Comment % 10/09/2020 8:27 PM TYPEWRITER RIBBON WINDER [facility] EST. AVG GLUCOSE, A1C 105 mg/dL 10/09/2020 8:27 PM TYPEWRITER RIBBON WINDER [facility] Blood Venipuncture / Unknown 10/09/2020 12:19 PM TYPEWRITER RIBBON WINDER 10/09/2020 8:09 PM TYPEWRITER RIBBON WINDER Narrative [facility] - 10/09/2020 8:27 PM TYPEWRITER RIBBON WINDER HGB A1C INTERPRETATION NORMAL: <5.7% PRE-DIABETES: 5.7 - 6.4% DIABETES: 6.5% OR GREATER Falsely low A1C measurements can occur when: 1. Anemia and/or hemolytic anemia is present. 2. Hemoglobin variants present. 3. Renal failure. 4. Transfusion of blood product in the last 120 days. We recommend ordering a fructosamine test([id number]) to more accurately assess glycemic status if any of the above conditions are present. Leah Millard DO CHEMISTRY ORDERABLES Final Result Performing Organization Address City/[facility]/ZIP Co de Phone Number [facility] CLIA# [id number] [place] [address] * MAMMO SCREEN BILAT W OR WO CAD (01/05/2019) Anatomical Region Laterality Modality Breast Bilateral Mammography Marleni Zimmer [facility] MAMMO ORDERABLES Final R esult * HM DIABETES FOOT EXAM (12/27/2018) Marleni Zimmer [facility] HEALTH MAINTENANCE Final Result * (ABNORMAL) MICROALBUMIN/CREATININE RATIO, RANDOM UR (10/05/2018 1:32 PM TYPEWRITER RIBBON WINDER) MICROALBUMIN, URINE <1.2 No Reference Range mg/dL 10/05/2018 9:36 PM [facility] CREATININE, URINE 20.2(L) 29.0 - 226.0 mg/dL 10/05/2018 9:36 PM [facility] Comment: Reference Range varies with fluid intake and diet. Urine URINE SPECIMEN OBTAINED BY CLEAN CATCH PROCEDURE / Unknown Collection / Unknown 10/05/2018 1:32 PM TYPEWRITER RIBBON WINDER 10/05/2018 7:59 PM TYPEWRITER RIBBON WINDER Narrative [facility] - 10/05/2018 9:36 PM TYPEWRITER RIBBON WINDER Condition Microalbumin/Creat ratio Normal Males <17 Normal Females <25 Microalbuminuria Males 17-299 Microalbuminuria Females 25-299 Overt proteinuria >=300 Unable to calculate urine microalbumin/creatinine ratio because urine microalbumin result is outside of reportable range. Marleni Zimmer HIGH DENSITY PRESS OPERATOR URINE ORDERABLES Final R esult [facility] IA# [id number] [address] [place] [address] from Last 3 Months or Most Recently Relevant to Health Maintenance [place] [address] [address] MEDICAID [place] Care Teams Mechanic Foreman Relationship Specialty Start Date End Date Leah Millard DO [address] [place] [address] PCP - General Family Practice 10/05/18
--- OUTSIDE RECORDS SUMMARY | 2025-05-21 18:36 | XMS_ITS | Encounter Summary ---
Author Organization [facility] Address [address] [place] [address] Care Team Providers Care Mental Health Director Name Role Phone Leah Millard DO Primary Care Provider [phone]- [phone] Encounter Details Date Type Department Care Team (Latest Contact Info) Description 03/06/2003 Outpatient Historical [facility] [address] [place] [address] AMBULANCE, MDN VIEW CHEST PAIN NOS (Primary Dx) Social History Tobacco Use Types Packs/Day Years Used Date Smoking Tobacco: Never Assessed Comments Unknown Sex and Gender Information Value Date Recorded Sex Assigned at Not on file Legal Sex Female 4:46 AM ANALYTICAL RESEARCH PROGRAM MANAGER Gender Identity Not on file Sexual Orientation Not on file documented as of this encounter Plan of Treatment Not on file documented as of this encounter Visit Diagnoses Diagnosis Chest pain, unspecified- Primary documented in this encounter Care Teams Mental Health Director Relationship Specialty Start Date End Date Leah Millard DO [address] [place] [address] PCP - General Family Practice 10/05/18 documented as of this encounter
--- OUTSIDE RECORDS SUMMARY | 2025-05-21 18:36 | XMS_ITS | Encounter Summary ---
Author Organization [facility] Address [address] [place] [address] Care Team Providers Care Manufacturing Analyst Name Role Phone Laeh Millard DO Primary Care Provider [phone]- [phone] Encounter Details Date Type Department Care Team [...] on file Legal Sex Female 6:02 AM DYEING MACHINE FEEDER Gender Identity Not on file Sexual Orientation Not on file documented as of this encounter Plan of Treatment Upcoming Encounters Date Type Department Care Team (Late st Contact Info) Description 05/31/2025 9:20 AM CDT Office Visit [facility] [address] [place] [facility] [place] [facility] [place] [phone] Leah Millard DO [address] [facility] [phone] 08/30/2025 2:40 PM DYEING MACHINE FEEDER Office Visit [facility] [address] [facility] [place] [address] Leah Millard DO [address] [place] [address] 11/28/2025 10:40 AM CDT Office Visit [facility] [address] [place] [address] Leah Millard DO [address] [place] [facility] [address] documented as of this encounter Visit Diagnoses Not on filedocumented in this encounter Additional Health Concerns Assessment Noted Time PHQ-9 Depression Total Score: 2 10/11/19 25 12:26 PM DYEING MACHINE FEEDER documented as of this encounter Care Teams Manufacturing Analyst Relationship Specialty Start Date End Date Leah Millard DO [address] [place] [facility] [address] PCP - General Family Practice 10/05/18 documented as of this encounter
[2025-05-21 18:56] VITALS: BP 164/91; PULSE 106; TEMP 39.1; O2SAT 98
--- NOTE | 2025-05-21 19:05 | W.ED.FEVER ---
HPI - Fever General: Chief Complaint: Fever Stated Complaint: Twitching eyebrows, Elevated Bloodsugar Time Seen by Provider: 05/21/25 18:48 History of Present Illness: Patient is a 64-year-old female with insulin-dependent diabetes who presents to the emergency department with acute onset of feeling 'weird' per patient report. According to the accompanying family member, the patient took a nap during a family birthday alliance party and subsequently developed shivering, jerking movements, and altered mental status. The patient was noted to have a fever of 102?F . Family reports this is the second similar episode, with a previous occurrence approximately one year ago that resolved with IV fluids in the ED. Of note, the patient has had a persistent UTI for several months and completed a course of nitrofurantoin approximately 1.5-2 weeks ago. The patient reports mild abdominal discomfort and dysuria. She also had an episode of urinary incontinence prior to arrival. The family notes the patient has been falling asleep frequently during the current episode. Patient denies cough, congestion, nausea, vomiting, or dizziness. No known sick contacts. Related Data Home Medications ?Medication ?Instructions ?Recorded ?Confirmed albuterol sulfate 90 mcg/actuation 2 puff inhalation Q6H PRN 10/04/19 05/17/25 aerosol inhaler Respiratory Distress atorvastatin 80 mg tablet 80 mg PO DAILY 10/04/19 05/17/25 budesonide-formoterol HFA 160 2 puff inhalation BID 10/04/19 05/17/25 mcg-4.5 mcg/actuation aerosol inhaler (Symbicort) calcium carbonate 500 mg PO DAILY 10/04/19 05/17/25 cyanocobalamin (vitamin B-12) 1,000 mcg PO DAILY 10/04/19 05/17/25 1,000 mcg capsule furosemide 40 mg tablet 40 mg PO DAILY 10/04/19 05/17/25 potassium chloride 10 mEq 10 meq PO DAILY 10/04/19 05/17/25 capsule,extended release tiotropium bromide 18 mcg capsule 1 cap inhalation DAILY 10/04/19 05/17/25 with inhalation device (Spiriva with HandiHaler) metoprolol tartrate 25 mg tablet 25 mg PO BID@0900,2100 08/14/21 05/17/25 oxybutynin chloride 5 mg tablet 5 mg PO BID 08/14/21 05/17/25 cholecalciferol (vitamin D3) 25 25 mcg PO DAILY 09/26/21 05/17/25 mcg (1,000 unit) capsule oxycodone 10 mg tablet 10 mg PO TID PRN 05/26/23 05/17/25 pregabalin 150 mg capsule 200 mg PO BID 05/26/23 05/17/25 lurasidone 40 mg tablet (Latuda) 40 mg PO DAILY 06/24/23 05/17/25 Previous Rx's ?Medication ?Instructions ?Recorded WALKER #1 ea 10/04/20 amlodipine 10 mg tablet 10 mg PO DAILY #30 tabs 11/03/20 Held on 11/13/20. Instructions: hypotension aspirin 81 mg tablet,delayed 162 mg (2 x 81 mg) PO DAILY #60 11/03/20 release tabs pantoprazole 40 mg tablet,delayed 40 mg PO BID #60 tabs 11/03/20 release (Protonix) spironolactone 25 mg tablet 25 mg PO DAILY #30 tabs 11/03/20 blood sugar diagnostic #200 ea 08/23/21 blood-glucose meter #1 ea 08/23/21 blood-glucose,quantitative analyst marketing,cont #1 ea 10/07/23 (Dexcom G7 Body Make Up Artist) tirzepatide 15 mg/0.5 mL 15 mg (0.5 mL) SUBCUT Q7D #2 mL 12/23/23 subcutaneous pen injector (Shadi) blood-glucose sensor (Dexcom G7 #9 ea 02/11/24 Sensor device) insulin regular hum U-500 conc 500 See Rx Instructions .Route 08/26/24 unit/mL(3 mL) subcut pen (Humulin .COMPLEX #60 mL R U-500 (Conc) Insulin Kwikpen) hydrocortisone 2.5 % topical cream 1 applic topical BID PRN skin 09/24/24 irritation #28 grams Allergies Allergy/AdvReac Type Severity Reaction Status Date / Time clindamycin Allergy Intermediate rash/nausea Verified 05/21/25 19:00 cephalexin (From Keflex) Allergy RASH,FEVER Verified 05/21/25 19:00 clonazepam (From Klonopin) Allergy SEIZURES Verified 05/21/25 19:00 doxycycline Allergy CONVULSIONS Verified 05/21/25 19:00 glyburide Allergy HIVES Verified 05/21/25 19:00 iodine Allergy ALGY-Wheezi Verified 05/21/25 19:00 ng Penicillins Allergy CONVULSIONS Verified 05/21/25 19:00 Sulfa (Sulfonamide Allergy RASH Verified 05/21/25 19:00 Antibiotics) tramadol (From Ultram) Allergy HIVES Verified 05/21/25 19:00 hydroxyzine Allergy unknown Uncoded 05/21/25 19:00 PFSH ED PFSH: Medical History Chronic cystitis Multiple sclerosis Diagnosed in 2014 Internal carotid artery stenosis Chronic pain History of colon cancer COPD (chronic obstructive pulmonary disease) Hyperlipidemia Insulin dependent type 2 diabetes mellitus Cardiac arrest Hypertension Patella fracture Incontinence Recurrent urinary tract infection Bilateral kidney stones Calcium urolithiasis Carpal tunnel syndrome of left wrist Surgical History Hx of detached retina repair History of tonsillectomy S/P extracorporeal shock wave therapy LEFT URETERAL STENT PLACEMENT History of appendectomy History of cholecystectomy Hx of adenoidectomy History of colon resection COLON CANCER Family History Father Parkinson disease Mother Parkinson disease Other CAD (coronary artery disease) Social History Smoking and tobacco/nicotine status: former use of tobacco/nicotine Alcohol intake: never Substance/Drug Use: never Adopted: No Caregiver/support person: No Lives independently: No Household members: spouse Marital status: Current occupational status: disabled Current gender identity: Female Physical Exam Const: GENERAL APPEARANCE: cooperative, lethargic and ill appearing (mildly) ORIENTATION/CONSCIOUSNESS: Yes lethargic HENMT: COMMON NORMALS: normocephalic and atraumatic HEAD & SCALP: normocephalic and atraumatic FACE & SINUS: face symmetric NOSE: Normal nares present Eye: COMMON NORMALS: Equal, round and reactive pupils present and EOMs intact bilaterally PUPIL: Yes Equal, round and reactive pupils present Chest: CHEST: Yes Symmetrical chest wall rise Resp: COMMON NORMALS: normal respiratory effort, No use of accessory muscles and clear to auscultation bilaterally AUSCULTATION: clear to auscultation bilaterally Cardio: COMMON NORMALS: regular rhythm RATE: tachycardic RHYTHM: regular rhythm GI: COMMON NORMALS: Normal to inspection, nondistended, normoactive bowel sounds present PALPATION: Yes Tenderness to palpation present (GI) (mild diffuse) Neuro: SENSORIUM/ORIENTATION: Yes lethargic Course Vital Signs: Vital signs: Vital Signs Temperature 98.1 F 05/21/25 22:45 Pulse Rate 81 05/22/25 00:03 Respiratory Rate 17 05/21/25 22:45 Blood Pressure 105/58 05/22/25 00:03 Pulse Oximetry 96 05/22/25 00:03 Oxygen Delivery Me thod Room Air 05/22/25 00:03 MDM - Fever Medical Decision Making Fever, leukocytosis of 17.6, urinary tract infection. Chest x-ray shows some pulmonary vascular congestion, but no infiltrates. Abdominal CT shows bilateral renal calculi with no obstruction unchanged from prior. There is perinephric stranding bilaterally which is increased since her prior study. Her lactic acid is 2.1. She received a sepsis bolus, and Levaquin. She has received some morphine for pain and Zofran for nausea. She will be admitted for sepsis with UTI. Hospitalist is aware. She will see the patient. Lab Data 05/21/25 19:00 05/21/25 19:00 Radiology Impressions Chest X-Ray 05/21/25 19:08 IMPRESSION: Borderline cardiomegaly. Mild pulmonary venous congestion with decreased bilateral lung volumes since prior study. Resolved left lower lobe pulmonary infiltrate since previous study. No effusion or pneumothorax seen. Abdomen/Pelvis CT 05/21/25 22:09 IMPRESSION: 1. Bilateral renal calculi without obstruction, unchanged. Perinephric stranding bilaterally, slightly increased since prior study. 2. Status post cholecystectomy. Extensive arterial vascular calcification. No evidence of small bowel obstruction, constipation or diverticulitis. Sigmoid colon surgery with surgical suture. Uterus is unremarkable. Mild diffuse urinary bladder wall thickening without definitive mass lesion. Degenerative changes of bilateral hip joints, SI joints and lumbar spine. No evidence of bony lesion or fracture. Laboratory Results WBC 17.59 10^3/uL (3.29-11.43) H 05/21/25 19:00 RBC 4.55 10^6/uL (3.85-5.65) 05/21/25 19:00 Hgb 12.30 g/dL (11.27-16.99) 05/21/25 19:00 Hct 38.8 % (36-47) 05/21/25 19:00 MCV 85.3 fl (85-98) 05/21/25 19:00 MCH 27.0 pg (27-33) 05/21/25 19:00 MCHC 31.7 g/dL (30-55) 05/21/25 19:00 RDW 14.1 % (12.1-15.1) 05/21/25 19:00 Plt Count 275 10^3/cmm (157-399) 05/21/25 19:00 MPV 10.4 fL (7.4-10.4) 05/21/25 19:00 Neut % (Auto) 83.1 % 05/21/25 19:00 Lymph % (Auto) 9.5 % 05/21/25 19:00 [place] % (Auto) 5.7 % 05/21/25 19:00 Eos % (Auto) 0.7 % 05/21/25 19:00 Baso % (Auto) 0.5 % 05/21/25 19:00 Neut # (Auto) 14.62 10^3/uL (1.8-7.7) H 05/21/25 19:00 Lymph # (Auto) 1.7 10^3/uL (0.8-4.8) 05/21/25 19:00 [place] # (Auto) 1.0 10^3/uL (0.2-0.9) H 05/21/25 19:00 Eos # (Auto) 0.1 10^3/uL (0.0-0.8) 05/21/25 19:00 Baso # (Auto) 0.1 10^3/uL (0.0-0.1) 05/21/25 19:00 Nucleated RBC % (auto) 0 % 05/21/25 19:00 Nucleated RBCs # 0.0 /100WBC 05/21/25 19:00 Sodium 138 mmol/L (136-145) 05/21/25 19:00 Potassium 4.6 mmol/L (3.5-5.1) 05/21/25 19:00 Chloride 99 mmol/L (98-107) 05/21/25 19:00 Carbon Dioxide 28 mmol/L (22-29) 05/21/25 19:00 Anion Gap 15.6 (5-19) 05/21/25 19:00 BUN 10 mg/dL (8-23) 05/21/25 19:00 Creatinine 1.3 mg/dL (0.5-0.9) H 05/21/25 19:00 GFR Calculation 41.1 mL/min (90-130) L 05/21/25 19:00 Glucose 233 mg/dL (65-115) H 05/21/25 19:00 POC Glucose 209 mg/dL (70-110) H 05/21/25 18:53 Calculated Osmolality 293 mOsm/kg (285-295) 05/21/25 19:00 Lactic Acid 2.3 mmol/L (0.5-2.2) H 05/21/25 19:00 Lactic Acid (Sepsis) 1.5 mmol/L (0.5-2.2) 05/21/25 21:56 Calcium 9.3 mg/dL (8.5-10.5) 05/21/25 19:00 Magnesium 1.8 mg/dL (1.7-2.3) 05/21/25 19:00 Total Bilirubin 0.8 mg/dL (0.15-1.2) 05/21/25 19:00 AST 12 U/L (0-32) 05/21/25 19:00 ALT 11 U/L (0-33) 05/21/25 19:00 Alkaline Phosphatase 179 U/L (35-105) H 05/21/25 19:00 C-Reactive Protein 73.8 mg/L (0.0-4.9) H 05/21/25 19:00 Total Protein 7.6 g/dL (6.6-8.7) 05/21/25 19:00 Albumin 3.6 g/dL (3.5-5.2) 05/21/25 19:00 Globulin 4.0 g/dL (1.3-4.6) 05/21/25 19:00 Lipase 14 U/L (13-60) 05/21/25 19:00 Urine Color Yellow (Yellow) 05/21/25 20:30 Urine Appearance Turbid (CLEAR) A 05/21/25 20:30 Urine pH 6.5 (5-7) 05/21/25 20:30 Ur Specific [place] 1.012 (1.005-1.030) 05/21/25 20:30 Urine Protein 2+ (Negative) A 05/21/25 20:30 Urine Glucose (UA) Negative (Normal) 05/21/25 20:30 Urine Ketones Negative (Negative) 05/21/25 20:30 Urine Blood 2+ (Negative) A 05/21/25 20:30 Urine Nitrate Negative (Negative) 05/21/25 20:30 Urine Bilirubin Negative (Negative) 05/21/25 20:30 Urine Urobilinogen 1.0 mg/dL (Negative) 05/21/25 20:30 Ur Leukocyte Esterase 3+ (Negative) A 05/21/25 20:30 Urine RBC 11-20 /hpf (0-2) H 05/21/25 20:30 Urine WBC >100 /hpf (0-5) H 05/21/25 20:30 Ur Squamous Epith Cells 0-5 /hpf (0-5) 05/21/25 20:30 Amorphous Sediment Not Reportable 05/21/25 20:30 Urine Bacteria 4+ /hpf (NONE) H 05/21/25 20:30 Hyaline Casts 0.81 /lpf 05/21/25 20:30 Influenza A (PCR) Negative (Negative) 05/21/25 21:15 Influenza Type B (PCR) Negative (Negative) 05/21/25 21:15 RSV (PCR) Negative (Negative) 05/21/25 21:15 SARS-CoV-2 (PCR) Negative (Negative) 05/21/25 21:15 All radiology interpretation(s) finalized by discharge Discharge Plan Discharge Patient Disposition: Admitted As Inpatient Admit Provider: Lupe Baez Clinical Impression: Recurrent urinary tract infection, Sepsis Condition: Stable Coding Level of Care Code ED Feedlot Manager for Alphonso Valdes
--- NOTE | 2025-05-21 19:08 | XRR_ITS ---
PROCEDURE INFORMATION: Exam: XR Chest Exam date and time: 05/21/2025 7:12 PM Age: 64 years old Clinical indication: Fever; Prior surgery; Surgery date: 6+ months; Surgery type: Coronary stents, gallbladder TECHNIQUE: Imaging protocol: Radiologic exam of the chest. 3 image(s) are submitted. Views: 1 view. COMPARISON: CR XR chest 1V portable [id number] 05/27/2024 10:52 PM FINDINGS: Lungs: See Heart/Mediastinum finding. Pleural spaces: See Heart/Mediastinum finding. Heart/Mediastinum: Borderline cardiomegaly. Mild pulmonary venous congestion with decreased bilateral lung volumes since prior study. Resolved left lower lobe pulmonary infiltrate since previous study. No effusion or pneumothorax seen. Bones/joints: Unremarkable. XR/XR chest 1V portable [id number] IMPRESSION: Borderline cardiomegaly. Mild pulmonary venous congestion with decreased bilateral lung volumes since prior study. Resolved left lower lobe pulmonary infiltrate since previous study. No effusion or pneumothorax seen.
[2025-05-21 19:31] LABS: Hematocrit 38.8 % (36-47); Hemoglobin 12.30 g/dL (11.27-16.99); Mean Corpuscular HGB Conc 31.7 g/dL (30-55); Mean Corpuscular Hemoglobin 27.0 pg (27-33); Mean Corpuscular Volume 85.3 fl (85-98); Nucleated Red Blood Cells % 0 %; Platelet Count 275 10^3/cmm (157-399); Red Blood Count 4.55 10^6/uL (3.85-5.65); White Blood Count 17.59 10^3/uL (3.29-11.43)
[2025-05-21 19:57] LABS: Alanine Aminotransferase 11 U/L (0-33); Albumin Level 3.6 g/dL (3.5-5.2); Alkaline Phosphatase 179 U/L (35-105); Anion Gap 15.6 (5-19); Aspartate Amino Transferase 12 U/L (0-32); Blood Urea Nitrogen 10 mg/dL (8-23); Calcium 9.3 mg/dL (8.5-10.5); Carbon Dioxide 28 mmol/L (22-29); Chloride 99 mmol/L (98-107); Globulin 4.0 g/dL (1.3-4.6); Glucose 233 mg/dL (65-115); Lipase 14 U/L (13-60); Magnesium 1.8 mg/dL (1.7-2.3); Osmolality Calculated 293 mOsm/kg (285-295); Potassium 4.6 mmol/L (3.5-5.1); Sodium 138 mmol/L (136-145); Total Protein 7.6 g/dL (6.6-8.7)
[2025-05-21 19:58] LABS: Lactic Sepsis W/Reflex 2.3 mmol/L (0.5-2.2)
[2025-05-21] MEDS: levofloxacin-dextrose 5 % 500 MG/100 ML PREMIX 100 MG IV (20:06)
[2025-05-21 20:07] VITALS: BP 199/74; PULSE 98; O2SAT 96
[2025-05-21 20:11] LABS: Creatinine Clr Calc Pharmacy 54.5090
--- NOTE | 2025-05-21 20:17 | ECG_ITS ---
[facility] Date: 2025-05-21 Pat Name: Melissa Kinney Department: Room: Gender: Female [employer] Ball [employer]er: : 1960 Requested By: Abraham Dunaway Order Number: [id number] Rambo MD: GERRY KRUSE Measurements Intervals [place] Rate: 94 P: 59 DC: 239 QRS: 23 QRSD: 83 T: 42 QT: 331 QTc: 415 Interpretive Statements SINUS RHYTHM WITH FIRST DEGREE AV BLOCK Compared to ECG 07/29/2021 21:56:45 No significant changes Electronically Signed On 05-22-2025 10:48:39 CDT by GERRY KRUSE [email or web address]
[2025-05-21 21:09] VITALS: BP 153/113; PULSE 99; RESP 18; TEMP 38.6; O2SAT 93
[2025-05-21] MEDS: metoprolol tartrate 1 mg/1 mL SDV 5 mL 5 MG IVP (21:10)
[2025-05-21 21:16] LABS: Glucose Urine UA Negative (Normal); Nitrate Urine Negative (Negative); Specific Gravity, Urine 1.012 (1.005-1.030)
[2025-05-21 21:16] LABS: Reflex Lactate Order REFLEX LACTIC ORDERD
[2025-05-21 21:19] LABS: Add Urine Microscopic? YES
[2025-05-21] MEDS: ondansetron 2 mg/ML SDV 2 mL 4 MG IVP (21:33)
[2025-05-21] MEDS: morphine 4 mg/mL SDV 1 mL 2 MG IVP (21:35)
[2025-05-21 21:38] VITALS: BP 171/71; PULSE 92; RESP 18; O2SAT 90
[2025-05-21 21:47] LABS: UA Slide Review UA Slide Review Perf
[2025-05-21 21:59] LABS: Respiratory Syncytial Virus Ce NEGATIVE (Negative); SARS-CoV-2 PCR NEGATIVE (Negative)
--- NOTE | 2025-05-21 22:09 | CTR_ITS ---
PROCEDURE INFORMATION: Exam: CT Abdomen And Pelvis Without Contrast Exam date and time: 05/21/2025 10:52 PM Age: 64 years old Clinical indication: Abnormal findings; Abnormal lab test; Elevated wbc; Prior surgery; Surgery date: 6+ months; Surgery type: Gb. Appy. Colon resection. Fever with leukocytosis and hematuria. History of colon cancer. ; Additional info: Fever, hematuria TECHNIQUE: Imaging protocol: Computed tomography of the abdomen and pelvis without contrast. 621 image(s) are submitted. Radiation optimization: All CT scans at this facility use at least one of these dose optimization techniques: automated exposure control; mA and/or kV adjustment per patient size (includes targeted exams where dose is matched to clinical indication); or iterative reconstruction. COMPARISON: CT abdomen pelvis w con* [id number] 10/30/2020 9:53 AM RADIATION DOSE METRICS: Total DLP (mGy-cm): 1103.06 FINDINGS: Liver: Normal. No mass. Gallbladder and biliary ducts: Status post cholecystectomy. Extensive arterial vascular calcification. No evidence of small bowel obstruction, constipation or diverticulitis. Sigmoid colon surgery with surgical suture. Uterus is unremarkable. Mild diffuse urinary bladder wall thickening without definitive mass lesion. Degenerative changes of bilateral hip joints, SI joints and lumbar spine. No evidence of bony lesion or fracture. Pancreas: Normal. No ductal dilation. Spleen: Normal. No splenomegaly. Adrenal glands: Normal. No mass. Kidneys and ureters: bilateral renal calculi without obstruction. Perinephric stranding bilaterally, slightly increased since prior study. Stomach and bowel: See Gallbladder and biliary ducts finding. Appendix: No evidence of appendicitis. Intraperitoneal space: Unremarkable. No free air. No significant fluid collection. Vasculature: See Gallbladder and biliary ducts finding. Lymph nodes: Unremarkable. No enlarged lymph nodes. Urinary bladder: See Gallbladder and biliary ducts finding. Reproductive: See Gallbladder and biliary ducts finding. Bones/joints: Spinal canal stenosis at L3-L4 level suggested. Soft tissues: Unremarkable. CT/CT kidney stone [id number] IMPRESSION: 1. Bilateral renal calculi without obstruction, unchanged. Perinephric stranding bilaterally, slightly increased since prior study. 2. Status post cholecystectomy. Extensive arterial vascular calcification. No evidence of small bowel obstruction, constipation or diverticulitis. Sigmoid colon surgery with surgical suture. Uterus is unremarkable. Mild diffuse urinary bladder wall thickening without definitive mass lesion. Degenerative changes of bilateral hip joints, SI joints and lumbar spine. No evidence of bony lesion or fracture.
[2025-05-21 22:18] LABS: Lactic Acid level (Lactate) 1.5 mmol/L (0.5-2.2)
[2025-05-21] MEDS: metoclopramide 5 mg/mL SDV 2 mL 10 MG IVP (22:42)
[2025-05-21 22:45] VITALS: BP 143/60; PULSE 86; RESP 17; TEMP 36.7; O2SAT 90
[2025-05-22] VITALS (15 sets, daily range): BP systolic 94–129; BP diastolic 53–79; PULSE 60–113; RESP 15–18; TEMP 36.6–38.7; O2SAT 90–97; BMI 41.0
--- NOTE | 2025-05-22 00:14 | PM.HP ---
Providers/Chief Complaint Admitting Physician: Lupe Baez MD Primary Care Provider: Leah Millard DO Chief Complaint: Twitching eyebrows, Elevated Bloodsugar History of Present Illness Melissa Kinney is a 64 year old female with past medical history of COPD, current smoker, insulin-dependent type 2 diabetes mellitus, hypertension ,hyperlipidemia, history of chronic RCA occlusion with collaterals, transient ischemic attacks, on Plavix, chronic pain on hydrocodone, history of colon cancer status post resection and chemotherapy, depression anxiety, who presents to [facility] with sudden onset of fever and chills. Patient had temperature of 102 Fahrenheit upon arrival. She denies having any recent URI type symptoms. Denies any cough. Denies any chest pain. Has some abdominal discomfort and states that she has been dealing with a UTI for the past few weeks. Her family had reported that she was more lethargic than usual. Review of Systems General: Reports: 10 or more systems reviewed and unremarkable except in HPI and below Const: Denies: fever(s), chills or body aches Eyes: Denies: change in vision, blurry vision or photophobia ENMT: Reports: hoarseness; Denies: throat pain, enlarged tonsils, odynophagia or nasal congestion Card: Denies: chest pain, palpitations, irregular heart rhythm, edema, swelling of feet/ankles, lightheadedness, pre-syncope, dyspnea on exertion or orthopnea Resp: Denies: dyspnea, productive cough, non-productive cough, wheezing, stridor, pain on inspiration, change in phlegm color, hemoptysis or chest congestion GI: Denies: abdominal pain, nausea, vomiting, hematemesis, coffee ground emesis, dysphagia, heartburn, diarrhea, constipation, GI cramping, change in stool character, hematochezia or melena : Denies: flank pain, difficulty voiding, dysuria, urinary frequency, urinary urgency, urinary hesitancy or hematuria Musc: Denies: neck pain, back pain, extremity pain, joint swelling, joint warmth or deformity Neuro: Denies: headache(s), numbness in extremities, weakness in extremities, sensory changes, difficulty walking, frequent falls, dizziness, vertigo, behavioral changes, Slurred speech present or seizure-like activity Psych: Denies: anxiety, depression, suicidal ideation or homicidal ideation Endo: Denies: polyuria, polydipsia, tired all the time, cold intolerance or hot flashes Bal/Lymph: Denies: easy bruising or easy bleeding Medications/Allergies Home Medications ?Medication ?Instructions ?Recorded ?Confirmed ?Last Taken ?Type albuterol sulfate 90 mcg/actuation 2 puff inhalation Q6H PRN 10/04/19 05/22/25 09/20/20 History aerosol inhaler Respiratory Distress atorvastatin 80 mg tablet 80 mg PO BEDTIME 10/04/19 05/22/25 05/20/25 20:00 History cyanocobalamin (vitamin B-12) 1,000 mcg PO DAILY 10/04/19 05/22/25 05/21/25 08:00 History 1,000 mcg capsule WALKER #1 ea 10/04/20 05/22/25 Unknown Rx aspirin 81 mg tablet,delayed 162 mg (2 x 81 mg) PO DAILY #60 11/03/20 05/22/25 05/21/25 08:00 Rx release tabs pantoprazole 40 mg tablet,delayed 40 mg PO BID #60 tabs 11/03/20 05/22/25 05/21/25 08:00 Rx release (Protonix) spironolactone 25 mg tablet 25 mg PO DAILY #30 tabs 11/03/20 05/22/25 05/21/25 08:00 Rx blood sugar diagnostic #200 ea 08/23/21 05/22/25 Unknown Rx blood-glucose meter #1 ea 08/23/21 05/22/25 Unknown Rx cholecalciferol (vitamin D3) 25 25 mcg PO DAILY 09/26/21 05/22/25 05/21/25 08:00 History mcg (1,000 unit) capsule oxycodone 10 mg tablet 10 mg PO TID PRN Pain 05/26/23 05/22/25 05/21/25 08:00 History blood-glucose,insulation power unit tender,cont #1 ea 10/07/23 05/22/25 Unknown Rx (Dexcom G7 Community Program Assistant) tirzepatide 15 mg/0.5 mL 15 mg (0.5 mL) SUBCUT Q7D #2 mL 12/23/23 05/22/25 05/17/25 08:00 Rx subcutaneous pen injector (Shadi) blood-glucose sensor (Dexcom G7 #9 ea 02/11/24 05/22/25 Unknown Rx Sensor device) amlodipine 2.5 mg tablet 2.5 mg PO BEDTIME 05/22/25 05/22/25 05/20/25 20:00 History aripiprazole 15 mg tablet 15 mg PO DAILY 05/22/25 05/22/25 05/21/25 08:00 History cetirizine 10 mg tablet (Zyrtec) 10 mg PO DAILY 05/22/25 05/22/25 05/15/25 History clobetasol 0.05 % topical cream 1 applic topical PRN PRN pscoriasis 05/22/25 05/22/25 Unknown History insulin regular hum U-500 conc 500 See Rx Instructions .Route 05/22/25 05/22/25 Unknown History unit/mL(3 mL) subcut pen (Humulin .COMPLEX PRN high blood sugar R U-500 (Conc) Insulin Kwikpen) lidocaine 5 % topical patch 1 - 3 patch topical DAILY PRN Pain 05/22/25 05/22/25 05/21/25 08:00 History metoprolol tartrate 50 mg tablet 50 mg PO BID 05/22/25 05/22/25 05/21/25 08:00 History mirabegron 25 mg tablet,extended 25 mg PO DAILY 05/22/25 05/22/25 05/21/25 08:00 History release 24 hr (Myrbetriq) mupirocin 2 % topical ointment 1 applic topical DAILY PRN redness 05/22/25 05/22/25 Unknown History ondansetron 4 mg disintegrating 4 mg PO Q6H PRN Nausea 05/22/25 05/22/25 05/21/25 08:00 History tablet oxygen-air delivery systems 05/22/25 05/22/25 Unknown History pregabalin 100 mg capsule 100 mg PO BID 05/22/25 05/22/25 05/21/25 08:00 History trazodone 150 mg tablet 225 mg PO BEDTIME 05/22/25 05/22/25 05/20/25 20:00 History vilazodone 40 mg tablet 40 mg PO DAILY 05/22/25 05/22/25 05/21/25 08:00 History Allergies Allergy/AdvReac Type Severity Reaction Status Date / Time clindamycin Allergy Intermediate rash/nausea Verified 05/21/25 19:00 cephalexin (From Keflex) Allergy RASH,FEVER Verified 05/21/25 19:00 clonazepam (From Klonopin) Allergy SEIZURES Verified 05/21/25 19:00 doxycycline Allergy CONVULSIONS Verified 05/21/25 19:00 glyburide Allergy HIVES Verified 05/21/25 19:00 iodine Allergy ALGY-Wheezi Verified 05/21/25 19:00 ng Penicillins Allergy CONVULSIONS Verified 05/21/25 19:00 Sulfa (Sulfonamide Allergy RASH Verified 05/21/25 19:00 Antibiotics) tramadol (From Ultram) Allergy HIVES Verified 05/21/25 19:00 hydroxyzine Allergy unknown Uncoded 05/21/25 19:00 PFSH Acute PFSH: Medical History Chronic cystitis Multiple sclerosis Diagnosed in 2014 Internal carotid artery stenosis Chronic pain History of colon cancer COPD (chronic obstructive pulmonary disease) Hyperlipidemia Insulin dependent type 2 diabetes mellitus Cardiac arrest Hypertension Patella fracture Incontinence Recurrent urinary tract infection Bilateral kidney stones Calcium urolithiasis Carpal tunnel syndrome of left wrist Surgical History Hx of detached retina repair History of tonsillectomy S/P extracorporeal shock wave therapy LEFT URETERAL STENT PLACEMENT History of appendectomy History of cholecystectomy Hx of adenoidectomy History of colon resection COLON CANCER Family History Father Parkinson disease Mother Parkinson disease Other CAD (coronary artery disease) Social History Smoking and tobacco/nicotine status: former use of tobacco/nicotine Alcohol intake: never Substance/Drug Use: never Adopted: No Caregiver/support person: No Lives independently: No Household members: spouse Marital status: Current occupational status: disabled Current gender identity: Female Vitals/I&O/Wt Last Vital Signs Temp 98.1 F 05/21/25 22:45 Pulse 81 05/22/25 00:03 Resp 17 05/21/25 22:45 BP 105/58 05/22/25 00:03 Pulse Ox 96 05/22/25 00:03 O2 Del Method Room Air 05/22/25 00:03 05/21/25 05/21/25 05/22/25 14:59 22:59 06:59 Intake Total 1878 Balance 1878 Weight last 48 hrs Weight 111.13 kg Physical Exam Narrative: General: No acute distress, AO x3 HEENT: PERRLA, pupils bilaterally equal and reactive, pallors not present Chest: Normal vesicular breath sounds, no added sounds, equal good air entry bilaterally CVS: S1-S2 regular, no murmurs, no tachycardia, no gallops, no rubs Abdomen: Soft, nontender, no organomegaly, bowel sounds present Neuro: No focal deficits Data 05/21/25 19:00 05/21/25 19:00 Micro: Microbiology 05/21/25 19:59 Blood Culture - Preliminary Blood SPECIMEN COLLECTED 05/21/25 19:35 Blood Culture - Preliminary Blood SPECIMEN COLLECTED Other data: Radiology Impressions Chest X-Ray 05/21/25 19:08 IMPRESSION: Borderline cardiomegaly. Mild pulmonary venous congestion with decreased bilateral lung volumes since prior study. Resolved left lower lobe pulmonary infiltrate since previous study. No effusion or pneumothorax seen. Abdomen/Pelvis CT 05/21/25 22:09 IMPRESSION: 1. Bilateral renal calculi without obstruction, unchanged. Perinephric stranding bilaterally, slightly increased since prior study. 2. Status post cholecystectomy. Extensive arterial vascular calcification. No evidence of small bowel obstruction, constipation or diverticulitis. Sigmoid colon surgery with surgical suture. Uterus is unremarkable. Mild diffuse urinary bladder wall thickening without definitive mass lesion. Degenerative changes of bilateral hip joints, SI joints and lumbar spine. No evidence of bony lesion or fracture. Laboratory Results WBC 17.59 10^3/uL (3.29-11.43) H 05/21/25 19:00 RBC 4.55 10^6/uL (3.85-5.65) 05/21/25 19:00 Hgb 12.30 g/dL (11.27-16.99) 05/21/25 19:00 Hct 38.8 % (36-47) 05/21/25 19:00 MCV 85.3 fl (85-98) 05/21/25 19:00 MCH 27.0 pg (27-33) 05/21/25 19: MCHC 31.7 g/dL (30-55) 05/21/25 19:00 RDW 14.1 % (12.1-15.1) 05/21/25 19:00 Plt Count 275 10^3/cmm (157-399) 05/21/25 19:00 MPV 10.4 fL (7.4-10.4) 05/21/25 19:00 Neut % (Auto) 83.1 % 05/21/25 19:00 Lymph % (Auto) 9.5 % 05/21/25 19:00 [place] % (Auto) 5.7 % 05/21/25 19:00 Eos % (Auto) 0.7 % 05/21/25 19:00 Baso % (Auto) 0.5 % 05/21/25 19:00 Neut # (Auto) 14.62 10^3/uL (1.8-7.7) H 05/21/25 19:00 Lymph # (Auto) 1.7 10^3/uL (0.8-4.8) 05/21/25 19:00 [place] # (Auto) 1.0 10^3/uL (0.2-0.9) H 05/21/25 19:00 Eos # (Auto) 0.1 10^3/uL (0.0-0.8) 05/21/25 19:00 Baso # (Auto) 0.1 10^3/uL (0.0-0.1) 05/21/25 19:00 Nucleated RBC % (auto) 0 % 05/21/25 19:00 Nucleated RBCs # 0.0 /100WBC 05/21/25 19:00 Sodium 138 mmol/L (136-145) 05/21/25 19:00 Potassium 4.6 mmol/L (3.5-5.1) 05/21/25 19:00 Chloride 99 mmol/L (98-107) 05/21/25 19:00 Carbon Dioxide 28 mmol/L (22-29) 05/21/25 19:00 Anion Gap 15.6 (5-19) 05/21/25 19:00 BUN 10 mg/dL (8-23) 05/21/25 19:00 Creatinine 1.3 mg/dL (0.5-0.9) H 05/21/25 19:00 GFR Calculation 41.1 mL/min (90-130) L 09/07/25 19:00 Glucose 233 mg/dL (65-115) H 05/21/25 19:00 POC Glucose 105 mg/dL (70-110) 05/22/25 03:10 Calculated Osmolality 293 mOsm/kg (285-295) 05/21/25 19:00 Lactic Acid 2.3 mmol/L (0.5-2.2) H 05/21/25 19:00 Lactic Acid (Sepsis) 1.5 mmol/L (0.5-2.2) 05/21/25 21:56 Calcium 9.3 mg/dL (8.5-10.5) 05/21/25 19:00 Magnesium 1.8 mg/dL (1.7-2.3) 05/21/25 19:00 Total Bilirubin 0.8 mg/dL (0.15-1.2) 05/21/25 19:00 AST 12 U/L (0-32) 05/21/25 19:00 ALT 11 U/L (0-33) 05/21/25 19:00 Alkaline Phosphatase 179 U/L (35-105) H 05/21/25 19:00 C-Reactive Protein 73.8 mg/L (0.0-4.9) H 05/21/25 19:00 Total Protein 7.6 g/dL (6.6-8.7) 05/21/25 19:00 Albumin 3.6 g/dL (3.5-5.2) 05/21/25 19:00 Globulin 4.0 g/dL (1.3-4.6) 05/21/25 19:00 Lipase 14 U/L (13-60) 05/21/25 19:00 Urine Color Yellow (Yellow) 05/21/25 20:30 Urine Appearance Turbid (CLEAR) A 05/21/25 20:30 Urine pH 6.5 (5-7) 05/21/25 20:30 Ur Specific [place] 1.012 (1.005-1.030) 05/21/25 20:30 Urine Protein 2+ (Negative) A 05/21/25 20:30 Urine Glucose (UA) Negative (Normal) 05/21/25 20:30 Urine Ketones Negative (Negative) 05/21/25 20: Urine Blood 2+ (Negative) A 05/21/25 20:30 Urine Nitrate Negative (Negative) 05/21/25 20:30 Urine Bilirubin Negative (Negative) 05/21/25 20:30 Urine Urobilinogen 1.0 mg/dL (Negative) 05/21/25 20:30 Ur Leukocyte Esterase 3+ (Negative) A 05/21/25 20:30 Urine RBC 11-20 /hpf (0-2) H 05/21/25 20:30 Urine WBC >100 /hpf (0-5) H 05/21/25 20:30 Ur Squamous Epith Cells 0-5 /hpf (0-5) 05/21/25 20:30 Amorphous Sediment Not Reportable 05/21/25 20:30 Urine Bacteria 4+ /hpf (NONE) H 05/21/25 20:30 Hyaline Casts 0.81 /lpf 05/21/25 20:30 Influenza A (PCR) Negative (Negative) 05/21/25 21:15 Influenza Type B (PCR) Negative (Negative) 05/21/25 21:15 RSV (PCR) Negative (Negative) 05/21/25 21:15 SARS-CoV-2 (PCR) Negative (Negative) 05/21/25 21:15 A&P Assessment and plan 1. UTI (urinary tract infection): 2. DORIE (acute kidney injury): Plan: 64-year-old lady with a past medical history as noted above presenting to the hospital with acute onset of fever chills and lethargy. Was found to have evidence of UTI with greater than 100 WBCs, 3+ leukocyte esterase Patient has a history of recurrent urinary tract infections in the past. Most recently cultures from December 2024 had revealed a growth of E. coli which is pansensitive. Several antibiotic allergies are noted in patient's chart including penicillins, cephalosporins, sulfa. Started on IV ciprofloxacin 400 mg IV every 12 hours for treatment of UTI. Currently hemodynamically stable. Urine and blood cultures are taken prior to exam. Patient has received 2 L of IV fluid bolus in the emergency room. Holding off on further fluids given history of CHF, known grade [address] of the abdomen and pelvis is showing bilateral renal calculi without obstruction. Perinephric stranding bilaterally. Normal liver and biliary system. Dorie with cr at 1.3 Monitor urine output PDMP PDMP Reviewed: Not Reviewed Attestations Medical Necessity Statement*: Greater than 2 midnight stay is anticipated Coding Level of Care Code Acute Code for Chg Fwd High MDM includes number and complexity of problems actively addressed during encounter, amount and/or complexity of data reviewed/ordered and described risk of complication, morbidity or mortality of management as documented Diagnoses UTI (urinary tract infection) N39.0 DORIE (acute kidney injury) N17.9
[2025-05-22] MEDS: ondansetron 2 mg/ML SDV 2 mL 4 MG IVP ×2 (00:26→23:47)
[2025-05-22] MEDS: morphine 4 mg/mL SDV 1 mL 2 MG IVP (00:28)
--- OUTSIDE RECORDS SUMMARY | 2025-05-22 07:34 | XMS_ITS | Encounter Summary ---
Author Organization [facility] Address [address] [place] [address] Care Team Providers Care Film Historian Name Role Phone Leah Millard DO Primary Care Provider [phone] Encounter Details Date Type Department Care Team [...] on file Legal Sex Female 6:02 AM MAINTENANCE DATA ANALYST Gender Identity Not on file Sexual Orientation Not on file documented as of this encounter Plan of Treatment Upcoming Encounters Date Type Department Care Team (Late st Contact Info) Description 05/31/2025 9:20 AM CDT Office Visit [facility] [address] [facility] [place] [phone] Leah Millard [facility] [address] [facility] [phone] 08/30/2025 2:40 PM MAINTENANCE DATA ANALYST Office Visit [facility] [address] [facility] [place] [address] Leah Millard DO [address] [place] [address] 11/28/2025 10:40 AM CDT Office Visit [facility] [address] [place] [address] Leah Millard DO [address] [facility] [place] [address] documented as of this encounter Visit Diagnoses Not on filedocumented in this encounter Additional Health Concerns Assessment Noted Time PHQ-9 Depression Total Score: 2 10/11/19 25 12:26 PM MAINTENANCE DATA ANALYST documented as of this encounter Care Teams Film Historian Relationship Specialty Start Date End Date Leah Millard DO [address] [facility] [place] [phone] PCP - General Family Practice 10/05/18 documented as of this encounter
--- OUTSIDE RECORDS SUMMARY | 2025-05-22 07:34 | XMS_ITS | Encounter Summary ---
Author Organization [facility] Address [address] [place] [address] Care Team Providers Care Stereoptician Name Role Phone Leah Millard DO Primary Care Provider [phone] Encounter Details Date Type Department Care Team [...] on file Legal Sex Female 6:02 AM MARKETING ANALYTICS SPECIALIST Gender Identity Not on file Sexual Orientation Not on file documented as of this encounter Plan of Treatment Upcoming Encounters Date Type Department Care Team (Late st Contact Info) Description 05/31/2025 9:20 AM CDT Office Visit [facility] [address] [place] [facility] [place] [phone] [facility] Mill[facility] [address] [facility] [phone] 08/30/2025 2:40 PM MARKETING ANALYTICS SPECIALIST Office Visit [facility] [address] [facility] [place] [address] Leah Millard DO [address] [place] [address] 11/28/2025 10:40 AM CDT Office Visit [facility] [address] [place] [address] Leah Millard DO [address] [facility] [place] [address] documented as of this encounter Visit Diagnoses Not on filedocumented in this encounter Additional Health Concerns Assessment Noted Time PHQ-9 Depression Total Score: 2 10/11/19 25 12:26 PM MARKETING ANALYTICS SPECIALIST documented as of this encounter Care Teams Stereoptician Relationship Specialty Start Date End Date Leah Millard DO [address] [facility] [place] [address] PCP - General Family Practice 10/05/18 documented as of this encounter
--- OUTSIDE RECORDS SUMMARY | 2025-05-22 07:35 | XMS_ITS | Clinical Summary ---
Author Organization [facility] Address [address] [place] [address] Care Team Providers Care Electroneurodiagnostic Technologist Name Role Phone Leah Millard Primary Care Provider [phone] Allergies Active Allergy Reactions Criticality Noted Date [...] hyperglycemia, with long-term current use of insulin ([facility]) Check blood sugars TID. Meter that is [...] unspecified vessel or lesion type, unspecified whether chicken [place] or transplanted heart Take 1 Tablet (30 mg) by mouth daily in the morning. 90 Tablet 3 08/13/20 20 Active cyanocobalamin 1,000 mcg TabletIndications: Vitamin B12 deficiency (non anemic) Take 1 Tablet (1,000 mcg) by mouth daily. 90 Tablet 3 08/13/20 20 Active montelukast (SINGULAIR) 10 mg tabletIndications: Chronic obstructive pulmonary disease, unspecified COPD type ([facility]) Take 1 Tablet (10 mg) by mouth [...] Anxiety. 30 Tablet 10/09/19 21 Active Insulin Hardy, Disposable, 32 gauge x 5/16 NeedleIndications: Type [...] disease, with long-term current use of insulin ([facility]) Inject 30 units SQ two times daily 15 mL 2 01/29/20 Active dapagliflozin (Farxiga) 10 mg TabletIndications: Elevated blood sugar,Type 2 diabetes mellitus with stage 3a chronic kidney disease, with long-term current use of insulin ([facility]) Take 1 Tablet (10 mg) by mouth daily. 30 Tablet 3 01/29/20 Active atorvastatin (LIPITOR) 40 mg tabletIndications: Mixed hyperlipidemia Take 1 Tablet (40 mg) by mouth daily. 90 Tablet 4 01/29/20 Active insulin lispro (HumaLOG KwikPen Insulin) 200 unit/mL pen syringeIndications :Type 2 diabetes mellitus with hyperglycemia, with long-term current use of insulin ([facility]),Type 2 diabetes mellitus with other circulatory complication, with long-term current use of insulin ([facility]) Inject subcutaneous 3 times daily PRN (sliding [...] hyperglycemia, with long-term current use of insulin ([facility]) Take 1 Tablet (50 mg) by mouth [...] Chronic obstructive pulmonary disease 05/29/2015 Atherosclerosis of [place] co ronary artery of [place] heart without angina pectoris 05/29/2015 Diabetes mellitus 05/29/2015 Resolved Problems Problem Noted Date Diagnosed Date Resolved Date Stable angina 11/02/2019 01/01/2020 Morbid obesity with body mas s index of 40.0-49.9 11/02/2019 11/08/2020 Tobacco use 11/02/2019 01/19/2021 AK (myocardial infarction) 04/09/2016 0 11/02/2019 Immunizations Immunization [...] on file Legal Sex Female 4:46 AM DIRECTOR TRAFFIC AND PLANNING Gender Identity Not on file Sexual Orientation [...] Comments DTAP/TDAP/TD VACCINES (1 - Tdap) 1978 RSV VACCINE (60+ or ) (1 - Risk 60-74 years 1-dose series) 2019 DIABETES MICROALBUMIN ANNUAL SCREEN 10/05/2019 10/05/2018 BREAST CANCER SCREENING 01/06/2020 01/05/2019 DIABETES HBA1C Q 6 MONTHS 04/08/20212020, 06/26/2020, 03/26/2020, Additional history exists LDL CHOLESTEROL ANNUAL 10/24/2021 , 10/09/2020, 06/26/2020, Additional history exists DIABETES ANNUAL FOOT EXAM 12/12/20212020, 12/06/2020, 12/27/2018, Additional history exists PNEUMOCOCCAL VACCINE 50+ YEA RS (3 of 3 - PCV20 or PCV21) 12/28/2023 12/27/2018, 04/09/2016 ZOSTER VACCINE (3 of 3) 02/17/2024 12/23/2023, 06/30 OSTEOPOROSIS SCREENING 2024 INFLUENZA VACCINE (#1) 2025 0, 06/15/2019, 06/11/2018, Additional history exists COVID-19 Vaccine (4 - 2024-2 6 season) 2025 08/13/2021, 02/04/2021, 01/07/2021 DIABETES ANNUAL RETINAL EXAM 12/20/202504/2025, 07/06/2024, 01/22/2021 Procedures Procedure Name Priority Date/Time Associated Diagnosis Comments LIPID PANEL Routine 10/24/2020 HEMOGLOBIN A1C Routine 10/09/2020 12:19 PM DIRECTOR TRAFFIC AND PLANNING Type 2 diabetes mellitus with other circulatory complication, with long-term current use of insulin ([facility]) MAMMO SCREEN BILAT W OR WO CAD Routine 01/05/2019 Screening for breast cancer HM DIABETES FOOT EXAM Routine 12/27/2018 MICROALBUMIN/CREATI NINE RATIO, RANDOM UR Routine 10/05/2018 1:32 PM DIRECTOR TRAFFIC AND PLANNING Type 2 diabetes mellitus with hyperglycemia, with long-term current use of insulin ([facility]) from Last 3 Months or Most Recently Relevant to Health Maintenance Results * LIPID PANEL (10/24/2020) ABSTRACTED CHOLESTEROL 138 EXTERNAL LAB ABSTRACTED TRIGLYCERIDE 172 EXTERNAL LAB ABSTRACTED HDL 33 EXTERNAL LAB ABSTRACTED LDL CALCULATED 71 EXTERNAL LAB CHOLESTEROL EXTERNAL LAB TRIGLYCERIDE EXTERNAL LAB HDL EXTERNAL LAB LDL CALCULATED EXTERNAL LAB Blood 10/24/2020 us Abstract Spg Provider CHEMISTRY ORDERABLES Final Result Performing Organization Address City/[facility]/ZIP Co de Phone Number EXTERNAL LAB * HEMOGLOBIN A1C (10/09/2020 12:19 PM DIRECTOR TRAFFIC AND PLANNING) HEMOGLOBIN A1C 5.3 See Comment % 10/09/2020 8:27 PM DIRECTOR TRAFFIC AND PLANNING [facility] EST. AVG GLUCOSE, A1C 105 mg/dL 10/09/2020 8:27 PM DIRECTOR TRAFFIC AND PLANNING [facility] Blood Venipuncture / Unknown 10/09/2020 12:19 PM DIRECTOR TRAFFIC AND PLANNING 10/09/2020 8:09 PM DIRECTOR TRAFFIC AND PLANNING Narrative [facility] - 10/09/2020 8:27 PM DIRECTOR TRAFFIC AND PLANNING HGB A1C INTERPRETATION NORMAL: <5.7% PRE-DIABETES: 5.7 - 6.4% DIABETES: 6.5% OR GREATER Falsely low A1C measurements can occur when: 1. Anemia and/or hemolytic anemia is present. 2. Hemoglobin variants present. 3. Renal failure. 4. Transfusion of blood product in the last 120 days. We recommend ordering a fructosamine test([id number]) to more accurately assess glycemic status if any of the above conditions are present. Leah Millard DO CHEMISTRY ORDERABLES Final Result Performing Organization Address City/[facility]/ZIP Co de Phone Number [facility] CLIA# [id number] [address] [place] [address] * MAMMO SCREEN BILAT W OR WO CAD (01/05/2019) Anatomical Region Laterality Modality Breast Bilateral Mammography Marleni COYLEP MAMMO ORDERABLES Final R esult * HM DIABETES FOOT EXAM (12/27/2018) Marleni COYLEP HEALTH MAINTENANCE Final Result * (ABNORMAL) MICROALBUMIN/CREATININE RATIO, RANDOM UR (10/05/2018 1:32 PM DIRECTOR TRAFFIC AND PLANNING) MICROALBUMIN, URINE <1.2 No Reference Range mg/dL 10/05/2018 9:36 PM [facility] CREATININE, URINE 20.2(L) 29.0 - 226.0 mg/dL 10/05/2018 9:36 PM [facility] Comment: Reference Range varies with fluid intake and diet. Urine URINE SPECIMEN OBTAINED BY CLEAN CATCH PROCEDURE / Unknown Collection / Unknown 10/05/2018 1:32 PM DIRECTOR TRAFFIC AND PLANNING 10/05/2018 7:59 PM DIRECTOR TRAFFIC AND PLANNING Narrative [facility] - 10/05/2018 9:36 PM DIRECTOR TRAFFIC AND PLANNING Condition Microalbumin/Creat ratio Normal Males <17 Normal Females <25 Microalbuminuria Males 17-299 Microalbuminuria Females 25-299 Overt proteinuria >=300 Unable to calculate urine microalbumin/creatinine ratio because urine microalbumin result is outside of reportable range. Marleni Zimmer [facility] URINE ORDERABLES Final R esult [facility] CLIA# [id number] [address] [place] [address] from Last 3 Months or Most Recently Relevant to Health Maintenance [place] [address] [place] [address] MEDICA[place] Care Teams Electroneurodiagnostic Technologist Relationship Specialty Start Date End Date Leah Millard DO [address] [place] [phone] PCP - General Family Practice 10/05/18
--- OUTSIDE RECORDS SUMMARY | 2025-05-22 07:35 | XMS_ITS | Encounter Summary ---
Author Organization [facility] Address [address] [place] [address] Care Team Providers Care Community Health Education Coordinator Name Role Phone Leah Millard DO Primary Care Provider [phone] Encounter Details Date Type Department Care Team (Latest Contact Info) Description 03/06/2003 Outpatient Historical [facility] [address] 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
--- OUTSIDE RECORDS SUMMARY | 2025-05-22 07:35 | XMS_ITS | Clinical Summary ---
Author Organization [facility] Address [address] 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 She has to do multiple shots of insulin daily and hard to control 1 Each 05/15/20 23 Active power wheelchairIndicatio ns:Chronic midline low back pain with right-sided sciatica,Type 2 diabetes mellitus with stage 3a chronic kidney disease, with long-term current use of insulin ([facility]),Essential hypertension,Essent ial tremor,Atherosclero sis of [place] coronary artery of [place] heart without angina pectoris,Multiple sclerosis (CMS/HCC),History of [...] cancer 05/29/2015 Diabetes mellitus 05/29/2015 Atherosclerosis of [place] co ronary artery of [place] heart without angina pectoris 05/29/2015 Resolved Problems Problem Noted Date Diagnosed Date Resolved Date Stable angina 11/02/2019 01/01/2020 Tobacco use 11/02/2019 01/19/2021 [place] (myocardial infarction) 04/09/2016 0 11/02/2019 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 05/29/2015 10/17/2024 Encounters Date Type Department Care Team Description 05/16/2025 External Device Data STL ABSTRACTION Provider, Abstract 05/16/2025 External Device Data STL ABSTRACTION Provider, Abstract 05/04/2025 Refill [facility] [address] [place] [address] G[place]ola, December, VERTICAL PUNCH OPERATOR Recurrent UTI 05/04/2025 Refill [facility] [address] [place] [address] Leah Millard, DO 05/02/2025 Medication Prior Auth Encounter [facility] [address] [place] [address] Karen Rodrigues 05/01/2025 Telephone [facility] [address] [place] [address] Leah Millard, DO Medication Question; Medication Authorization; Medication Assistance 04/19/2025 External Device Data STL ABSTRACTION Provider, Abstract 04/18/2025 Refill [facility] [address] [place] [address] Leah Millard, DO 04/16/2025 Refill [facility] [address] [place] [address] Leah Millard, DO 04/05/2025 Refill [facility] [address] [place] [address] Leah Millard, DO 04/04/2025 External Device Data STL ABSTRACTION Provider, Abstract 04/03/2025 Results Follow-Up [facility] [address] [place] [address] Gaxiola, December, VERTICAL PUNCH OPERATOR URINE CULTURE 03/30/2025 12:00 PM CDT Office Visit [facility] [address] [place] [address] Gaxiola, December, VERTICAL PUNCH OPERATOR Acute cystitis without hematuria (Primary Dx); Skin tear of hand without complication, initial encounter; Screening mammogram, encounter for; OAB (overactive bladder) 03/30/2025 Refill [facility] [address] [place] [address] Leah Millard, Chronic midline low back pain with right-sided sciatica 03/29/2025 External Device Data STL ABSTRACTION Provider, Abstract 03/19/2025 Refill [facility] [address] [place] [address] Leah Millard DO 03/15/2025 Refill [facility] [address] [place] [address] Leah Millard, Essential hypertension (Primary Dx) 03/06/2025 Refill [facility] [address] [place] [address] Leah Millard, DO Plaque psoriasis 03/01/2025 Telephone [facility] [address] [place] [address] Leah Millard, DO Medication Assistance 03/01/2025 Refill [facility] [address] [place] [address] Leah Millard, DO Chronic midline low back [...] on file Legal 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 Gender Identity Not on file Sexual Orientation [...] Description 05/31/2025 9:20 AM CDT Office Visit [facility] [address] [place] [address] Leah Millard, DO [address] [place] [address] 08/30/2025 2:40 PM SUPERVISOR NEWSPAPER DELIVERIES Office Visit [facility] [address] [place] [address] Leah Millard, DO [address] [place] [address] 11/28/2025 10:40 AM CDT Office Visit [facility] [address] [place] [address] Leah Millard, DO [address] [place] [address] Health Maintenance Due Date Last Done Comments [...] RATIO, RANDOM UR Routine 11/08/2024 2:52 PM SUPERVISOR NEWSPAPER DELIVERIES Type 2 diabetes mellitus with stage 3a chronic kidney disease, with long-term current use of insulin ([facility]) COMPREHENSIVE METABOLIC PANEL Routine 10/11/2024 1:16 PM SUPERVISOR NEWSPAPER DELIVERIES Type 2 diabetes mellitus with stage 3a chronic kidney disease, with long-term current use of insulin ([facility]) LIPID PANEL Routine 10/11/2024 1:16 PM SUPERVISOR NEWSPAPER DELIVERIES Type 2 diabetes mellitus with stage 3a chronic kidney disease, with long-term current use of insulin ([facility]) HEMOGLOBIN A1C Routine 10/11/2024 1:16 PM SUPERVISOR NEWSPAPER DELIVERIES Type 2 diabetes mellitus with stage 3a chronic kidney disease, with long-term current use of insulin ([facility]) MAMMO 3D BON SCREEN BILAT W OR WO CAD Routine 03/23/2024 9:51 AM CDT Screening mammogram, encounter for ENDOSCOPY, COLON, SCREENING 04/04/2020 12:00 AM CDT DIABETES FOOT EXAM 12/27/2018 12:00 AM CDT from Last 3 Months or Most Recently Relevant to Health Maintenance Results * (ABNORMAL) URINE CULTURE (03/30/2025 12:38 PM CDT) URINE CULTURE SEE NOTE(A) [facility] Comment: CULTURE, URINE, ROUTINE Micro Number: [id number] Test Status: Final Specimen Source: Urine, clean [...] cefuroxime, cephalexin and loracarbef. Test Performed at: [facility] [address] [place] [address] Funmi Medellin MD Urine URINE SPECIMEN OBTAINED BY CLEAN CATCH PROCEDURE / Unknown 03/30/2025 12:38 PM CDT 03/31/2025 3:02 AM CDT December Gaxiola VERTICAL PUNCH OPERATOR MICROBIOLOGY - GENERAL ORDERABLE S Final Result [facility] [phone] [address] * HM DIABETES EYE EXAM (12/20/2024 10:14 AM CDT) Abstract Provider HEALTH MAINTENANCE Edited Resu lt - Final * MICROALBUMIN/CREATININE RATIO, RANDOM UR (11/08/2024 2:52 PM SUPERVISOR NEWSPAPER DELIVERIES) Creatinine, Urine 135 20 - 275 mg/dL [facility] MICROALBUMIN, URINE 0.7 See Note: mg/dL [facility] Comment: Reference Range: Reference Range Not established MICROALBUMIN/CREAT RATIO, UR 5 <30 mg/g creat [facility] Comment: The ADA defines abnormalities in albumin excretion as follows: Albuminuria Category Result (mg/g creatinine) Normal to Mildly increased <30 Moderately increased 30-299 Severely increased > OR = 300 The ADA recommends that at least two of three specimens collected within a 3-6 month period be abnormal before considering a patient to be within a diagnostic category. Test Performed at: [facility] [address] [place] [address] Funmi Medellin MD Urine URINE SPECIMEN OBTAINED BY CLEAN CATCH PROCEDURE / Unknown 11/08/2024 2:52 PM SUPERVISOR NEWSPAPER DELIVERIES 11/09/2024 5:16 AM SUPERVISOR NEWSPAPER DELIVERIES us Leah Millard DO URINE ORDERABLES Final Resu lt [facility] [phone] [facility] [address] [place] [address] * (ABNORMAL) HEMOGLOBIN A1C (10/11/2024 1:16 PM SUPERVISOR NEWSPAPER DELIVERIES) HEMOGLOBIN A1C 6.9(H) <5.7 % of total Hgb [facility] Comment: For someone without known diabetes, [...] [facility] Comment: Test Performed at: [facility] [address] [place] [address] Funmi Medellin MD Blood 10/11/2024 1:16 PM SUPERVISOR NEWSPAPER DELIVERIES 10/12/2024 5:47 AM SUPERVISOR NEWSPAPER DELIVERIES Leah Millard DO CHEMISTRY ORDERABLES Final Result [facility] [phone] [facility] [place] [address] * (ABNORMAL) LIPID PANEL (10/11/2024 1:16 PM SUPERVISOR NEWSPAPER DELIVERIES) CHOLESTEROL 154 <200 mg/dL [facility] [...] LDL-C. Jeffrey SS et al. BRIANNA. 2013;310(19): 3497-3821 (http://education.Couplewise.Digly/faq/OKD360) CHOL/HDL RATIO 4.4 <5.0 (calc) [facility] NON-HDL CHOLESTEROL 119 <130 mg/dL (calc) [facility] Comment: For patients with diabetes plus 1 major ASCVD risk factor, treating to a non-HDL-C goal of <100 mg/dL (LDL-C of <70 mg/dL) is considered a therapeutic option. Test Performed at: [facility] [address] [place] [address] Funmi Medellin MD Blood 10/11/2024 1:16 PM SUPERVISOR NEWSPAPER DELIVERIES 10/12/2024 5:47 AM SUPERVISOR NEWSPAPER DELIVERIES us Leah Millard DO CHEMISTRY ORDERABLES Final Result [facility] [phone] [facility] [address] [address] [address] * (ABNORMAL) COMPREHENSIVE METABOLIC PANEL (10/11/2024 1:16 PM SUPERVISOR NEWSPAPER DELIVERIES) GLUCOSE 103(H) 65 - 99 mg/dL [facility] [...] [facility] Comment: Test Performed at: [facility] [address] [address] [address] Funmi Medellin MD Blood 10/11/2024 1:16 PM SUPERVISOR NEWSPAPER DELIVERIES 10/12/2024 5:47 AM SUPERVISOR NEWSPAPER DELIVERIES us Leah Millard DO CHEMISTRY ORDERABLES Final Result [facility] [phone] [facility] [address] [address] [address] * MAMMO 3D BON SCREEN BILAT W [...] areas of architectural distortion. us Nighat Sharpe VERTICAL PUNCH OPERATOR MAMMO ORDERABLES Final Res ult * ENDOSCOPY, COLON, SCREENING (04/04/2020 12:00 AM CDT) us Sgf Scanning GI PROCEDURE ORDERABLES Final Re sult * HM DIABETES FOOT EXAM (12/27/2018 12:00 AM CDT) Marleni Micaela Zimmer VERTICAL PUNCH OPERATOR HEALTH MAINTENANCE Final Result from Last 3 Months or Most Recently Relevant to Health Maintenance Insurance MEDICAID [facility] DUAL COMPLETE HMO [facility] [id number] Care Teams Standards Engineer Relationship Specialty Start Date End Date Leah Millard DO [address] [place] [address] PCP - General Family Practice 10/05/18
--- OUTSIDE RECORDS SUMMARY | 2025-05-22 07:35 | XMS_ITS | Encounter Summary ---
Author Organization [facility] Address 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 Gender Identity Not on file Sexual Orientation Not on file documented as of this encounter Plan of Treatment Upcoming Encounters Date Type Department Care Team (Late st Contact Info) Description 05/31/2025 9:20 AM CDT Office Visit [facility] [address] [place] [address] Leah Millard DO [address] [facility] [place] [address] 08/30/2025 2:40 PM AUTO CLUB TRAVEL COUNSELOR Office Visit [facility] [address] [place] [facility] [address] Leah Millard, DO [address] [place] [address] 11/28/2025 10:40 AM CDT Office Visit [facility] [address] [place] [facility] [address] Leah Millard, DO [address] [place] [address] documented as of this encounter Visit Diagnoses Diagnosis Recurrent UTI- Primary Urinary tract infection, site not specified documented in this encounter Additional Health Concerns Assessment Noted Time PHQ-9 Depression Total Score: 2 10/11/19 25 12:26 PM AUTO CLUB TRAVEL COUNSELOR documented as of this encounter Care Teams Marketing Producer Relationship Specialty Start Date End Date Leah Millard DO [address] [place] [address] PCP - General Family Practice 10/05/18 documented as of this encounter
[2025-05-22] MEDS: oxyCODONE 5 mg IR Tab/Cap 10 MG PO ×2 (09:09→18:05)
--- NOTE | 2025-05-22 12:54 | PM.PN ---
Subjective Subjective: Complaining of nausea. And complaining of fever and chills this morning with temperature of 101.9. The patient lives with the daughter and the daughter is in the room. Vitals/I&O/Wt Last Vital Signs Temp 99.7 F H 05/22/25 11:44 Pulse 102 H 05/22/25 11:44 Resp 18 05/22/25 11:44 BP 128/77 05/22/25 11:44 Pulse Ox 92 05/22/25 11:44 O2 Del Method Room Air 05/22/25 11:44 05/21/25 05/22/25 05/22/25 22:59 06:59 14:59 Intake Total 1878 200 / 2079 240 / 240 Output Total 500 / 500 850 / 850 Balance 1878 -300 / 1579 -610 / -610 Weight last 48 hrs Weight 117.14 kg Weight 115.303 kg Weight 111.13 kg Physical Exam Narrative: Obese white female in mild distress due to discomfort of fever Heart regular normal S1-S2 without loud murmur Lungs clear to auscultation anteriorly Abdomen obese soft nontender nondistended positive bowel sounds Extremities some mild nonpitting edema noted Data 05/21/25 19:00 05/21/25 19:00 Micro: Microbiology 05/21/25 19:59 Blood Culture - Preliminary Blood SPECIMEN COLLECTED 05/21/25 19:35 Blood Culture - Preliminary Blood SPECIMEN COLLECTED A&P Assessment and plan 1. UTI (urinary tract infection): 2. DORIE (acute kidney injury): Plan: UTI. -Continue Cipro 400 mg IV every 12 hours -Fever today. Could be result of IV antibiotics and lysis of bacteria -Patient has a history of recurrent UTI. -Most recent cultures from December 2024 revealed growth of E. coli which was pansensitive. -Noted several antibiotic allergies including penicillin and cephalosporins sulfa. AK I : - patient has received 2 L of IV fluid bolus in the emergency room. Holding off on further fluids given history of CHF, known grade [address] - CT of the abdomen and pelvis is showing bilateral renal calculi without obstruction. Perinephric stranding bilaterally. Normal liver and biliary system. -Monitor BMP - monitor urine output PDMP PDMP Reviewed: Not Reviewed Attestations Medical Necessity Statement*: Greater than 2 midnight stay is anticipated Coding Level of Care Code Acute Code for [facility] Fwd Diagnoses UTI (urinary tract infection) N39.0 DORIE (acute kidney injury) N17.9
[2025-05-23] VITALS (13 sets, daily range): BP systolic 105–147; BP diastolic 60–69; PULSE 68–86; RESP 16–19; TEMP 36.8–38.3; O2SAT 91–98
[2025-05-23 03:29] LABS: ABG PCO2 42.7 mmHg (35-45); ABG PH Result 7.44 (7.35-7.45); Alveolar-Arterial Oxygen Gradi 3.3 mmHg (5-10); Arterial Blood Gas Hematocrit 34.6 % (37-47); Blood Gas LPM 3.0 %; Blood Gas Sample Site Brachial, right; Blood Gas Sample Type Arterial; Carboxyhemoglobin 1.2 %THgb (0.4-20.1); Glucose Level-ABG 141.0 mg/dL (70-115); HCO3 ABG 29.0 mmol/L (22-26); Ionized Calcium Level - ABG 1.2 mmol/L (1.1-1.4); Methemoglobin 0.3 % (0.4-1.5); Oxygen Saturation ABG 95.2; PO2 ABG 71.8 mmHg (80.0-100.0); Potassium Level - ABG 3.9 mmol/L (3.5-5.0); Sodium Level - ABG 135.0 mmol/L (131-143)
[2025-05-23 05:37] LABS: Hematocrit 35.0 % (36-47); Hemoglobin 10.80 g/dL (11.27-16.99); Mean Corpuscular HGB Conc 30.9 g/dL (30-55); Mean Corpuscular Hemoglobin 27.3 pg (27-33); Mean Corpuscular Volume 88.4 fl (85-98); Nucleated Red Blood Cells % 0 %; Platelet Count 220 10^3/cmm (157-399); Red Blood Count 3.96 10^6/uL (3.85-5.65); White Blood Count 18.43 10^3/uL (3.29-11.43)
[2025-05-23 05:54] LABS: Alanine Aminotransferase 9 U/L (0-33); Albumin Level 2.7 g/dL (3.5-5.2); Alkaline Phosphatase 143 U/L (35-105); Anion Gap 16.0 (5-19); Aspartate Amino Transferase 13 U/L (0-32); Blood Urea Nitrogen 12 mg/dL (8-23); Calcium 8.4 mg/dL (8.5-10.5); Carbon Dioxide 25 mmol/L (22-29); Chloride 99 mmol/L (98-107); Creatinine Clr Calc Pharmacy 55.2751; Globulin 3.4 g/dL (1.3-4.6); Glucose 144 mg/dL (65-115); Osmolality Calculated 284 mOsm/kg (285-295); Potassium 4.0 mmol/L (3.5-5.1); Sodium 136 mmol/L (136-145); Total Protein 6.1 g/dL (6.6-8.7)
[2025-05-23] MEDS: diphenhydrAMINE 50 mg/mL SDV 1mL 25 MG IVP ×2 (09:54→17:11)
[2025-05-23] MEDS: hydrocortisone 100 mg/2 mL SDV IVP ×4 (10:07→20:48)
[2025-05-23] MEDS: piperacillin-tazobactam 3.375 GM in sodium chloride 0.9% (plus) 50 ML IV ×2 (10:10→17:12)
--- NOTE | 2025-05-23 13:45 | P.PN_ITS ---
Subjective 2 Subjective: Remained febrile overnight to a Tmax of 101.7 she has had some associated tachycardia Patient when I visited with her had no significant rate complaints was actually feeling fairly well at that time. Daughter present We reviewed patient's list of allergies. There is concern that while patient had infection she had a fever and actually her convulsions or unsteadiness or shakiness as she reports may have been due to to the fever itself and not the antibiotic.. Vitals/I&O/Wt Last Vital Signs Temp 98.2 F 05/23/25 11:08 Pulse 68 05/23/25 11:08 Resp 19 H 05/23/25 11:08 BP 110/65 05/23/25 11:08 Pulse Ox 93 05/23/25 11:08 O2 Del Method Room Air 05/23/25 11:08 O2 Flow Rate 3 05/23/25 08:41 05/22/25 05/23/25 05/23/25 22:59 06:59 14:59 Intake Total 240 / 1160 700 / 1860 480 / 480 Output Total 300 / 1150 700 / 1850 900 / 900 Balance -60 / 10 0 / 10 -420 / -420 Weight last 48 hrs Weight 113.942 kg Weight 117.14 kg Weight 115.303 kg Weight 111.13 kg Physical Exam 2 Narrative: Obese white female no distress today Heart regular normal S1-S2 without loud murmur Lungs clear to auscultation anteriorly Abdomen obese soft nontender nondistended positive bowel sounds Extremities some mild nonpitting edema noted Data 05/23/25 05:12 05/23/25 05:12 Micro: Microbiology 05/21/25 20:30 Urine Culture - Preliminary Urine,Clean Catch Gram Negative Rods 05/21/25 19:35 Blood Culture - Preliminary Blood NEGATIVE TO DATE 05/21/25 19:59 Blood Culture - Preliminary Blood Escherichia coli A&P Assessment and plan 1. Bacteremia: Blood cultures growing E. coli 1 out of 3. Urine culture gram-negative rods. Suspect they will be the same. Of note her E. coli UTI in December 2024 was pansensitive to all antibiotics. 2. UTI (urinary tract infection): 3. DORIE (acute kidney injury): Patient's baseline appears to be between 1 and 1.2. Her serum creatinine is now 1.3. Continue to monitor Plan: Today: Noted that that WBC actually went up. Patient has remained febrile. I suspect that Cipro might not be adequate coverage for the urinary tract infection/sepsis. Spoke extensively with family and pharmacy regarding her allergies. We feel that the risk-benefit ratio lends itself to starting broader coverage for the bacteremia/UTI. Will start Zosyn with premedication of Benadryl along with continuous dosing of Solu-Cortef Also talked extensively with patient and daughter about good hygiene, since patient has a history of recurrent UTI we talked about good ways for cleansing, appropriate soaps. And allow for drying. If feminine hygiene changes are made and patient continues to get urinary tract infections referral to either genitourinary specialist or PHYS ASSISTANT to assess for prolapse. PDMP PDMP Reviewed: Not Reviewed Attestations 2 Medical Necessity Statement*: Greater than 2 midnight stay is anticipated Coding Level of Care Code 17794 Diagnoses Bacteremia R78.81 UTI (urinary tract infection) N39.0 DORIE (acute kidney injury) N17.9
[2025-05-23] MEDS: ondansetron 2 mg/ML SDV 2 mL 4 MG IVP (17:11)
[2025-05-23] MEDS: efferdent effervescent 1 EACH DENTAL (22:31)
[2025-05-23] MEDS: oxyCODONE 5 mg IR Tab/Cap 10 MG PO (22:32)
[2025-05-24] VITALS (14 sets, daily range): BP systolic 102–144; BP diastolic 56–80; PULSE 50–80; RESP 16–17; TEMP 36.3–37.1; O2SAT 92–98
[2025-05-24] MEDS: ondansetron 2 mg/ML SDV 2 mL 4 MG IVP ×2 (00:21→13:30)
[2025-05-24] MEDS: diphenhydrAMINE 50 mg/mL SDV 1mL 25 MG IVP (00:28)
[2025-05-24] MEDS: hydrocortisone 100 mg/2 mL SDV IVP ×2 (02:05→06:31)
[2025-05-24] MEDS: piperacillin-tazobactam 3.375 GM in sodium chloride 0.9% (plus) 50 ML IV (02:08)
[2025-05-24 04:58] LABS: Hematocrit 35.1 % (36-47); Hemoglobin 11.20 g/dL (11.27-16.99); Mean Corpuscular HGB Conc 31.9 g/dL (30-55); Mean Corpuscular Hemoglobin 27.4 pg (27-33); Mean Corpuscular Volume 85.8 fl (85-98); Nucleated Red Blood Cells % 0 %; Platelet Count 261 10^3/cmm (157-399); Red Blood Count 4.09 10^6/uL (3.85-5.65); White Blood Count 17.91 10^3/uL (3.29-11.43)
[2025-05-24 05:20] LABS: Anion Gap 12.9 (5-19); Blood Urea Nitrogen 11 mg/dL (8-23); Calcium 9.0 mg/dL (8.5-10.5); Carbon Dioxide 28 mmol/L (22-29); Chloride 101 mmol/L (98-107); Creatinine Clr Calc Pharmacy 65.5881; Glucose 205 mg/dL (65-115); Osmolality Calculated 291 mOsm/kg (285-295); Potassium 3.9 mmol/L (3.5-5.1); Sodium 138 mmol/L (136-145)
--- NOTE | 2025-05-24 06:07 | PC.NURSE ---
Pharmacy discontinued orders for prednisone per NOV due to already taking soul-cortef per NOV. Pharmacy states that is a lot of steroids to be taking at one time. Will notify day-shift physician.
[2025-05-24] MEDS: MEROPENEM 2,000 MG in sodium chloride 0.9% (plus) 50 ML 16.67 MG IV ×2 (08:55→15:43)
[2025-05-24] MEDS: oxyCODONE 5 mg IR Tab/Cap 10 MG PO (09:02)
--- NOTE | 2025-05-24 09:24 | PC.CHAP ---
Pastoral Care Encounter/Spiritual Assessment Type of Contact [] Declined talent development analyst visit [] Patient/Family/Request visit [] Outpatient visit [] Follow-up visit [] Physician referral [] Code/Alert [x] Routine visit [] Staff referral [] Actively dying [] Patient sleeping [x] Family support [] [] Out of room [] Palliative care [] [] Receiving care in room [] Pre-surgical visit [] Trauma [] Long length of stay [] ICU visit [] Other: Relational/Emotional Strength [x] Patient feels connected with others/family/visitors/staff [] Distress [] Loneliness/isolation [] Abandonment Spirituality of Patient [x] Person of Wenyd [] Attends Hinduism of their Wendy [x] Believes in Prayer [] Reads Bible or Episcopal materials [] There are Spiritual issues to be addressed Chip Crusher Operator Interventions [x] Prayer [x] Active listening [x] Non-anxious presence [x] Spiritual/emotional support [] Crisis/trauma care [] Spiritual counseling [] Bereavement support [] Provided bereavement packet [] Provided Bible/devotional materials [] Provided toy/stuffed animal, coloring book to patient or family member [] Provided Communion [] Anointing/[place] [] Salvation [x] Completed spiritual assessment [] Other: Impact on Illness or Injury [] Angry [] Fearful [] Anxious [] Often cries [] Exhaustion [] Unable to work [] Unable to attend presybeterian [] Unable to walk/stand [] Unable to read [] Unable to drive [] Unable to eat/drink [] Unable to sleep [] Unable to be with family [] Patient intubated [] Other: Summary Time spent with patient 10 min
[2025-05-24] MEDS: lactulose oral liq 20 gm/30 mL UDC 30 GM PO ×2 (10:55→15:43)
--- NOTE | 2025-05-24 11:05 | PC.NURSE ---
Patient's family concerned due to patient being red in the face. Patient reports back pain, but no chest pain or feelings of unwell. Patient's vitals as followed, Temp 97.4 axillary, pulse 69 pulse ox, oxygen currently 92% room air, blood pressure 128/80 on right arm semi fowlers, respiration 16. Took cpap off and donned 2L nasal cannula. Patient call light in reach. Will continue to monitor.
--- NOTE | 2025-05-24 12:17 | P.PN_ITS ---
Subjective 2 Subjective: Patient reports reaction overnight to third dose of Zosyn. She got itchy but it was dark so she did not appreciate a rash. She did describe tingly full sensation around her mouth. Otherwise she states she is feeling better today of course she continues to be weak. But overall she states states she is feeling better Vitals/I&O/Wt Last Vital Signs Temp 97.7 F 05/24/25 11:42 Pulse 63 05/24/25 11:42 Resp 16 05/24/25 11:42 BP 114/57 05/24/25 11:42 Pulse Ox 94 05/24/25 11:42 O2 Del Method CPAP 05/24/25 11:42 O2 Flow Rate 2 05/24/25 08:22 05/23/25 05/24/25 05/24/25 22:59 06:59 14:59 Intake Total 170 / 900 250 / 1150 290 / 290 Output Total 1350 / 2250 200 / 2450 900 / 900 Balance -1180 / -1350 50 / -1300 -610 / -610 Weight last 48 hrs Weight 114.759 kg Weight 113.942 kg Physical Exam 2 Narrative: Obese white female no distress today-seen sitting in a chair Heart regular normal S1-S2 soft systolic murmur heard at the left upper sternal border possibly Lungs clear to auscultation anteriorly and posteriorly Abdomen obese soft nontender nondistended positive bowel sounds Extremities some mild nonpitting edema noted Data 05/24/25 04:43 05/24/25 04:43 Micro: Microbiology 05/24/25 10:42 Blood Culture - Preliminary Blood SPECIMEN COLLECTED 05/24/25 10:38 Blood Culture - Preliminary Blood SPECIMEN COLLECTED 05/21/25 20:30 Urine Culture - Final Urine,Clean Catch Escherichia coli esbl 05/21/25 19:59 Blood Culture - Preliminary Blood Escherichia coli esbl A&P Assessment and plan 1. Bacteremia: Blood cultures growing E. coli 1 out of 3. Final cultures ESBL E. coli. Patient appears to have a true allergy to her penicillin/cephalosporin. She seems to react to Zosyn which will need to be added as a allergy. She reacted despite aggressive prophylactic therapy with Solu-Cortef and Benadryl. With final sensitivities resulted in discussion with pharmacy patient has been changed to meropenem 2 g every 8 hours. Blood cultures today to see if E. coli has cleared. Once blood cultures negative will continue ertapenem for 7 days. Referral to case management for SNF versus home antibiotics 2. UTI (urinary tract infection): As above 3. DORIE (acute kidney injury): Patient's baseline appears to be between 1 and 1.2. Today her creatinine is back to 1.1. Plan: Also, reviewed home medications and ordered as appropriate. PDMP PDMP Reviewed: Not Reviewed Attestations 2 Medical Necessity Statement*: Patient requires hospitalization for IV antibiotics given the resistant nature of her E. coli bacteremia as well as her multiple allergies and she did sustain reaction despite prophylactic therapy. Coding Level of Care Code [facility] Diagnoses Bacteremia R78.81 UTI (urinary tract infection) N39.0 DORIE (acute kidney injury) N17.9
[2025-05-24] MEDS: ondansetron hcl ODT 4 mg Tab PO (21:50)
[2025-05-25] VITALS (11 sets, daily range): BP systolic 106–133; BP diastolic 65–78; PULSE 55–92; RESP 16–18; TEMP 36.5–36.9; O2SAT 94–98
[2025-05-25] MEDS: diphenhydrAMINE 50 mg/mL SDV 1mL 25 MG IVP (00:25)
[2025-05-25] MEDS: MEROPENEM 2,000 MG in sodium chloride 0.9% (plus) 50 ML 16.67 MG IV ×3 (02:12→17:14)
[2025-05-25] MEDS: efferdent effervescent 1 EACH DENTAL (04:32)
[2025-05-25 04:49] LABS: Hematocrit 34.1 % (36-47); Hemoglobin 10.70 g/dL (11.27-16.99); Mean Corpuscular Volume 86.5 fl (85-98); Red Blood Count 3.94 10^6/uL (3.85-5.65); White Blood Count 18.52 10^3/uL (3.29-11.43)
[2025-05-25 04:50] LABS: Mean Corpuscular HGB Conc 31.4 g/dL (30-55); Mean Corpuscular Hemoglobin 27.2 pg (27-33); Nucleated Red Blood Cells % 0 %; Platelet Count 272 10^3/cmm (157-399)
[2025-05-25 05:12] LABS: Anion Gap 13.3 (5-19); Blood Urea Nitrogen 13 mg/dL (8-23); Calcium 8.9 mg/dL (8.5-10.5); Carbon Dioxide 27 mmol/L (22-29); Chloride 105 mmol/L (98-107); Creatinine Clr Calc Pharmacy 60.1224; Glucose 108 mg/dL (65-115); Osmolality Calculated 295 mOsm/kg (285-295); Potassium 3.3 mmol/L (3.5-5.1); Sodium 142 mmol/L (136-145)
[2025-05-25] MEDS: ondansetron hcl ODT 4 mg Tab PO ×2 (06:05→21:28)
[2025-05-25] MEDS: oxyCODONE 5 mg IR Tab/Cap 10 MG PO ×2 (06:05→21:25)
--- NOTE | 2025-05-25 06:21 | PC.NURSE ---
IV site in right forearm noted to be infiltrating, with slight swelling present above the site. Patient says it is tender but does not hurt too bad. Catheter removed, fully intact. Patient tolerated removal well. Area wrapped with gauze and coban. New IV inserted into left forearm without complications. Positive blood return obtained and site flushed with normal saline well; IV patent ad intact. Patient denies any pain or discomfort at the new IV site. Call light, belongings in reach, side rails up x2, bed locked lowest position. Patient denies any further wants or needs at this time.
--- NOTE | 2025-05-25 09:03 | P.PN_ITS ---
Subjective 2 Subjective: Patient did well today. She is seen sitting in a chair with her daughter and granddaughter. She is smiling. She describes occasional dizziness with a head turn. But it did not happen while we tested in the room Vitals/I&O/Wt Last Vital Signs Temp 98.4 F 05/25/25 08:00 Pulse 69 05/25/25 08:39 Resp 16 05/25/25 08:39 BP 115/75 05/25/25 08:00 Pulse Ox 94 05/25/25 08:39 O2 Del Method Room Air 05/25/25 08:39 O2 Flow Rate 3 05/24/25 19:34 05/24/25 05/25/25 05/25/25 22:59 06:59 14:59 Intake Total 290 / 1260 250 / 1510 Output Total 400 / 1300 150 / 1450 Balance -110 / -40 100 / 60 Weight last 48 hrs Weight 116.573 kg Weight 114.759 kg Physical Exam 2 Narrative: Obese white female no distress again sitting in a chair today. Note the patient has not been ambulatory Heart regular normal S1-S2 soft systolic murmur heard at the left upper sternal border possibly Lungs clear to auscultation anteriorly and posteriorly Abdomen obese soft nontender nondistended positive bowel sounds Extremities mild nonpitting edema noted Data 05/25/25 04:36 05/25/25 04:36 Micro: Microbiology 05/24/25 10:42 Blood Culture - Preliminary Blood SPECIMEN COLLECTED 05/24/25 10:38 Blood Culture - Preliminary Blood SPECIMEN COLLECTED 05/21/25 20:30 Urine Culture - Final Urine,Clean Catch Escherichia coli esbl 05/21/25 19:59 Blood Culture - Preliminary Blood Escherichia coli esbl A&P Assessment and plan 1. Bacteremia: Final cultures ESBL E. coli. Patient appears to have a true allergy to her penicillin/cephalosporin. She seems to react to Zosyn which will need to be added as a allergy. She reacted despite aggressive prophylactic therapy with Solu-Cortef and Benadryl. Continue meropenem 2 g every 8 hours. Follow-up blood cultures drawn yesterday at 1040 approximately Once blood cultures negative will continue ertapenem for 7 days. Referral to case management for SNF versus home antibiotics 2. UTI (urinary tract infection): As above 3. DORIE (acute kidney injury): Patient's baseline appears to be between 1 and 1.2. Plan: Order PT OT to assess for home needs PDMP PDMP Reviewed: Not Reviewed Attestations 2 Medical Necessity Statement*: Patient requires hospitalization for IV antibiotics given the resistant nature of her E. coli bacteremia as well as her multiple allergies and she did sustain reaction despite prophylactic therapy. Coding Level of Care Code [facility] Diagnoses Bacteremia R78.81 UTI (urinary tract infection) N39.0 DORIE (acute kidney injury) N17.9
[2025-05-25 09:50] LABS: Magnesium 1.9 mg/dL (1.7-2.3)
[2025-05-26] VITALS (7 sets, daily range): BP systolic 100–129; BP diastolic 55–74; PULSE 60–78; RESP 16–18; TEMP 36.4–37; O2SAT 92–98
[2025-05-26] MEDS: MEROPENEM 2,000 MG in sodium chloride 0.9% (plus) 50 ML 16.67 MG IV ×2 (01:08→11:01)
[2025-05-26 03:21] LABS: Hematocrit 33.8 % (36-47); Hemoglobin 10.70 g/dL (11.27-16.99); Mean Corpuscular HGB Conc 31.7 g/dL (30-55); Mean Corpuscular Hemoglobin 27.1 pg (27-33); Mean Corpuscular Volume 85.6 fl (85-98); Nucleated Red Blood Cells % 0 %; Platelet Count 244 10^3/cmm (157-399); Red Blood Count 3.95 10^6/uL (3.85-5.65); White Blood Count 9.20 10^3/uL (3.29-11.43)
[2025-05-26 03:46] LABS: Anion Gap 14.3 (5-19); Blood Urea Nitrogen 12 mg/dL (8-23); Calcium 8.5 mg/dL (8.5-10.5); Carbon Dioxide 28 mmol/L (22-29); Chloride 102 mmol/L (98-107); Creatinine Clr Calc Pharmacy 55.9918; Glucose 141 mg/dL (65-115); Osmolality Calculated 292 mOsm/kg (285-295); Potassium 4.3 mmol/L (3.5-5.1); Sodium 140 mmol/L (136-145)
[2025-05-26] MEDS: oxyCODONE 5 mg IR Tab/Cap 10 MG PO (08:15)
--- NOTE | 2025-05-26 09:19 | PM.DCS ---
Discharge Providers Date of Admission: 05/22/25 01:58 Date of Discharge: May 26, 2025 Attending Provider at Admission: Lupe Baez MD Attending Provider at Discharge: Jorge Perkins DO Primary Care Provider: Leah Millard DO Diagnoses at Discharge Discharge Diagnosis 1. Bacteremia: 2. UTI (urinary tract infection): 3. DORIE (acute kidney injury): Reason for Visit Reason for Visit: Twitching eyebrows, Elevated Bloodsugar Brief History: Melissa Kinney is a 64 year old female with past medical history of COPD, current smoker, insulin-dependent type 2 diabetes mellitus, hypertension ,hyperlipidemia, history of chronic RCA occlusion with collaterals, transient ischemic attacks, on Plavix, chronic pain on hydrocodone, history of colon cancer status post resection and chemotherapy, depression anxiety, who presents to [facility] Today with sudden onset of fever and chills. Patient had temperature of 102 Fahrenheit upon arrival. She denies having any recent URI type symptoms. Denies any cough. Denies any chest pain. Has some abdominal discomfort and states that she has been dealing with a UTI for the past few weeks. Her family had reported that she was more lethargic than usual. Hospital Course Hospital Course Patient was admitted to the general medical floor she was treated for sepsis. She was found to have bacteremia with E. coli in her blood. This was ESBL E. coli. 3 different adjustments needed to be made to antibiotics due to resistance. She was placed on meropenem after finding that Zosyn was ineffective after Cipro. Initially after starting the Zosyn she did defervesce with the fever. Of note we treated her for Zosyn allergy and she still broke through with allergic reaction. Thus Zosyn was listed as a true allergy. She also had some facial tingling around the lips. When meropenem was started she showed tang improvement. Blood cultures were drawn on 05/24/2025 these were negative. On the day of discharge 05/26/2025 a midline was placed and she was discharged home with home health services to provide ertapenem 1 g every 24 hours, last dose on 06/01/2025 Physical Exam Narrative: Obese white female having some left ear fullness and what she describes as a migraine headache Heart regular normal S1-S2 soft systolic murmur heard at the left upper sternal border possibly Lungs clear to auscultation anteriorly and posteriorly Abdomen obese soft nontender nondistended positive bowel sounds Extremities mild nonpitting edema noted Discharge Data Studies Completed and Pending Completed Studies During Hospitalization Category Date Time Status CT kidney stone [id number] Stat Cat Scan 05/21/25 22:09 Completed XR chest 1V portable [id number] Stat Exams 05/21/25 19:08 Completed Pending at discharge Category Date Time Status Blood Culture Stat Lab 05/21/25 19:35 Results Blood Culture Stat Lab 05/24/25 10:42 Results Radiology Impressions Chest X-Ray 05/21/25 19:08 IMPRESSION: Borderline cardiomegaly. Mild pulmonary venous congestion with decreased bilateral lung volumes since prior study. Resolved left lower lobe pulmonary infiltrate since previous study. No effusion or pneumothorax seen. Abdomen/Pelvis CT 05/21/25 22:09 IMPRESSION: 1. Bilateral renal calculi without obstruction, unchanged. Perinephric stranding bilaterally, slightly increased since prior study. 2. Status post cholecystectomy. Extensive arterial vascular calcification. No evidence of small bowel obstruction, constipation or diverticulitis. Sigmoid colon surgery with surgical suture. Uterus is unremarkable. Mild diffuse urinary bladder wall thickening without definitive mass lesion. Degenerative changes of bilateral hip joints, SI joints and lumbar spine. No evidence of bony lesion or fracture. Laboratory Results WBC 9.20 10^3/uL (3.29-11.43) 05/26/25 03:13 RBC 3.95 10^6/uL (3.85-5.65) 05/26/25 03:13 Hgb 10.70 g/dL (11.27-16.99) L 05/26/25 03:13 Hct 33.8 % (36-47) L 05/26/25 03:13 MCV 85.6 fl (85-98) 05/26/25 03:13 MCH 27.1 pg (27-33) 05/26/25 03:13 MCHC 31.7 g/dL (30-55) 05/26/25 03:13 RDW 13.9 % (12.1-15.1) 05/26/25 03:13 Plt Count 244 10^3/cmm (157-399) 05/26/25 03:13 MPV 9.8 fL (7.4-10.4) 05/26/25 03:13 Neut % (Auto) 69.6 % 05/26/25 03:13 Lymph % (Auto) 19.9 % 05/26/25 03:13 [place] % (Auto) 6.4 % 05/26/25 03:13 Eos % (Auto) 3.3 % 05/26/25 03:13 Baso % (Auto) 0.5 % 05/26/25 03:13 Neut # (Auto) 6.40 10^3/uL (1.8-7.7) 05/26/25 03:13 Lymph # (Auto) 1.8 10^3/uL (0.8-4.8) 05/26/25 03:13 Stafford # (Auto) 0.6 10^3/uL (0.2-0.9) 05/26/25 03:13 Eos # (Auto) 0.3 10^3/uL (0.0-0.8) 05/26/25 03:13 Baso # (Auto) 0.1 10^3/uL (0.0-0.1) 05/26/25 03:13 Nucleated RBC % (auto) 0 % 05/26/25 03:13 Nucleated RBCs # 0.0 /100WBC 05/26/25 03:13 Specimen Type Arterial 05/23/25 03:18 Sample Site Brachial, right 05/23/25 03:18 ABG pH 7.44 (7.35-7.45) 05/23/25 03:18 ABG pCO2 42.7 mmHg (35-45) 05/23/25 03:18 ABG pO2 71.8 mmHg (80.0-100.0) L 05/23/25 03:18 ABG HCO3 29.0 mmol/L (22-26) H 05/23/25 03:18 ABG O2 Saturation 95.2 05/23/25 03:18 ABG Base Excess 4.3 mmol/L (-2.0-2.0) H 05/23/25 03:18 Abhi Test N/a 05/23/25 03:18 A-a O2 Gradient 3.3 mmHg (5-10) L 05/23/25 03:18 Hematocrit 34.6 % (37-47) L 05/23/25 03:18 Hgb O2 Saturation 93.7 % (95-100) L 05/23/25 03:18 Carboxyhemoglobin 1.2 %THgb (0.4-20.1) 05/23/25 03:18 Methemoglobin 0.3 % (0.4-1.5) L 05/23/25 03:18 Total Hemoglobin 11.3 g/dL (12-16) L 05/23/25 03:18 Sodium 135.0 mmol/L (131-143) 05/23/25 03:18 Potassium 3.9 mmol/L (3.5-5.0) 05/23/25 03:18 Glucose 141.0 mg/dL (70-115) H 05/23/25 03:18 Ionized Calcium 1.2 mmol/L (1.1-1.4) 05/23/25 03:18 O2 Delivery Device Bipap 05/23/25 03:18 O2 Liters/Min 3.0 % 05/23/25 03:18 Microfabrication Engineer Manager ID [email or web address] 05/23/25 03:18 Sodium 140 mmol/L (136-145) 05/26/25 03:13 Potassium 4.3 mmol/L (3.5-5.1) 05/26/25 03:13 Chloride 102 mmol/L (98-107) 05/26/25 03:13 Carbon Dioxide 28 mmol/L (22-29) 05/26/25 03:13 Anion Gap 14.3 (5-19) 05/26/25 03:13 BUN 12 mg/dL (8-23) 05/26/25 03:13 Creatinine 1.3 mg/dL (0.5-0.9) H 05/26/25 03:13 GFR Calculation 41.1 mL/min (90-130) L 05/26/25 03:13 Glucose 141 mg/dL (65-115) H 05/26/25 03:13 POC Glucose 121 mg/dL (70-110) H 05/26/25 06:22 Calculated Osmolality 292 mOsm/kg (285-295) 05/26/25 03:13 Lactic Acid 2.3 mmol/L (0.5-2.2) H 05/21/25 19:00 Lactic Acid (Sepsis) 1.5 mmol/L (0.5-2.2) 05/21/25 21:56 Calcium 8.5 mg/dL (8.5-10.5) 05/26/25 03:13 Magnesium 1.9 mg/dL (1.7-2.3) 05/25/25 04:36 Total Bilirubin 1.2 mg/dL (0.15-1.2) 05/23/25 05:12 AST 13 U/L (0-32) 05/23/25 05:12 ALT 9 U/L (0-33) 05/23/25 05:12 Alkaline Phosphatase 143 U/L (35-105) H 05/23/25 05:12 C-Reactive Protein 73.8 mg/L (0.0-4.9) H 05/21/25 19:00 Total Protein 6.1 g/dL (6.6-8.7) L 05/23/25 05:12 Albumin 2.7 g/dL (3.5-5.2) L 05/23/25 05:12 Globulin 3.4 g/dL (1.3-4.6) 05/23/25 05:12 Lipase 14 U/L (13-60) 05/21/25 19:00 Urine Color Yellow (Yellow) 05/21/25 20:30 Urine Appearance Turbid (CLEAR) A 05/21/25 20:30 Urine pH 6.5 (5-7) 05/21/25 20:30 Ur Specific [place] 1.012 (1.005-1.030) 05/21/25 20:30 Urine Protein 2+ (Negative) A 05/21/25 20:30 Urine Glucose (UA) Negative (Normal) 05/21/25 20:30 Urine Ketones Negative (Negative) 05/21/25 20:30 Urine Blood 2+ (Negative) A 05/21/25 20:30 Urine Nitrate Negative (Negative) 05/21/25 20:30 Urine Bilirubin Negative (Negative) 05/21/25 20:30 Urine Urobilinogen 1.0 mg/dL (Negative) 05/21/25 20:30 Ur Leukocyte Esterase 3+ (Negative) A 05/21/25 20:30 Urine RBC 11-20 /hpf (0-2) H 05/21/25 20:30 Urine WBC >100 /hpf (0-5) H 05/21/25 20:30 Ur Squamous Epith Cells 0-5 /hpf (0-5) 05/21/25 20:30 Amorphous Sediment Not Reportable 05/21/25 20:30 Urine Bacteria 4+ /hpf (NONE) H 05/21/25 20:30 Hyaline Casts 0.81 /lpf 05/21/25 20:30 Influenza A (PCR) Negative (Negative) 05/21/25 21:15 Influenza Type B (PCR) Negative (Negative) 05/21/25 21:15 RSV (PCR) Negative (Negative) 05/21/25 21:15 SARS-CoV-2 (PCR) Negative (Negative) 05/21/25 21:15 Vitals Last Vital Signs Temp 98.1 F 05/26/25 07:50 Pulse 65 05/26/25 07:50 Resp 16 05/26/25 08:15 BP 118/60 05/26/25 07:50 Pulse Ox 98 05/26/25 07:50 O2 Del Method Nasal Cannula 05/26/25 07:50 O2 Flow Rate 3 05/24/25 19:34 Discharge Plan Discharge Patient Disposition: Home Health Service Condition: Stable Prescriptions: Continued cyanocobalamin (vitamin B-12) 1,000 mcg capsule 1,000 mcg PO DAILY albuterol sulfate 90 mcg/actuation HFA aerosol inhaler 2 puff INHALATION Q6H PRN (Reason: Respiratory Distress) atorvastatin 80 mg tablet 80 mg PO BEDTIME (DME) WALKER See Rx Instructions .Route .MEDSUPPLY Qty: 1 0RF Rx Instructions: As directed cholecalciferol (vitamin D3) 25 mcg (1,000 unit) capsule 25 mcg PO DAILY oxycodone 10 mg tablet 10 mg PO TID PRN (Reason: Pain) Mounjaro 15 mg/0.5 mL pen injector 15 mg SUBCUT Q7D Qty: 2 1RF (DME) blood sugar diagnostic Strip See Rx Instructions .Route Qty: 200 3RF Rx Instructions: As directed (DME) blood-glucose meter Kit See Rx Instructions .Route Qty: 1 0RF Rx Instructions: Check BS twice a day. (DME) Dexcom G7 Retort Or Condenser Press Operator Misc See Rx Instructions .Route Qty: 1 0RF Rx Instructions: As directed (DME) Dexcom G7 Sensor Device See Rx Instructions .ROUTE .MEDSUPPLY Qty: 9 1RF Rx Instructions: Change every 10days aspirin 81 mg Tablet,Delayed Release (Dr/Ec) 162 mg PO DAILY Qty: 60 0RF spironolactone 25 mg Tablet 25 mg PO DAILY Qty: 30 0RF pantoprazole [Protonix] 40 mg tablet,delayed release (DR/EC) 40 mg PO BID Qty: 60 0RF cetirizine [Zyrtec] 10 mg Tablet 10 mg PO DAILY clobetasol 0.05 % cream 1 applic TOPICAL PRN PRN (Reason: pscoriasis) amlodipine 2.5 mg tablet 2.5 mg PO BEDTIME trazodone 150 mg tablet 225 mg PO BEDTIME lidocaine 5 % adhesive patch,medicated 1 - 3 patch topical DAILY PRN (Reason: Pain) metoprolol tartrate 50 mg tablet 50 mg PO BID mupirocin [Bactroban] 2 % Ointment 1 applic TOPICAL DAILY PRN (Reason: redness) ondansetron 4 mg tablet,disintegrating 4 mg PO Q6H PRN (Reason: Nausea) (DME) oxygen-air delivery systems Device MISCELLANEOUS aripiprazole 15 mg tablet 15 mg PO DAILY pregabalin 100 mg capsule 100 mg PO BID vilazodone 40 mg tablet 40 mg PO DAILY mirabegron [Myrbetriq] 25 mg tablet extended release 24 hr 25 mg PO DAILY Humulin R U-500 (Conc) Kwikpen 500 unit/mL (3 mL) insulin pen See Rx Instructions .ROUTE .COMPLEX PRN (Reason: high blood sugar) Rx Instructions: INJECT 320 UNITS SUBCUTANEOUSLY EVERY DAY IN THE MORNING, 320 UNITS WITH LUNCH AND 250 UNITS IN THE EVENING Java Mobile Developer OK for DC: Hospitalist Other Ambulatory Orders: DME: Walker (Order) Location: None Selected Ordered By: Jorge Perkins Referrals: Leah Millard DO [Primary Care Provider, Family Practice] Discharge Diet: Diabetic Discharge Activity: Increase activity as tolerated and As per PT/OT instructions Patient Instructions: Opioid Safety, Patient Portal & Dione Instructions Discharge Attestations Time Spent in Discharge Care*: less than 30 min Quality Metrics Clinical Quality Measures [ No reported AMI, CVA or VTE this stay] Coding Level of Care Code Acute Code for [facility] Diagnoses Bacteremia R78.81 UTI (urinary tract infection) N39.0 DORIE (acute kidney injury) N17.9
--- NOTE | 2025-05-26 11:16 | PICC.NOTE ---
Midline placed to right basilic vein. Referred to vascular access nurse for midline placement due to need for IV antibiotics x 6 days. Risks and benefits discussed and informed consent obtained from pt. Right arm assessed with right basilic vein measuring 3.5 mm, straight, and apparent best choice for placement. Using sterile technique and MST, right basilic vein accessed x 1 stick. Mid-arm circumference measured 10 cm from right AC 42 cm. Trimmed cath 12cm with 0 cm external length noted. Line secured with stat-lock. Insertion site covered with Biopatch and TSM. Teaching for home care of midline using [facility] protocol provided both verbally and in written handout. Report given to bedside nurse, RACHNA Montano.
--- NOTE | 2025-05-26 12:42 | PC.NURSE ---
awaiting daughter to teach IV antibiotic administration before discharge.
[2025-05-26] MEDS: ertapenem 1,000 mg SDV 1000 MG IVP (14:10)
--- NOTE | 2025-05-26 14:46 | PC.NURSE ---
Discharge Note Patient discharged to home via private vehicle accompanied by daughter. Discharge instructions reviewed with patient and/or patient intake representative. Mobile pharmacy medications and/or prescriptions provided. Belongings/home medications returned.
== END 2025-05-26 15:23 | disposition home health service (06) | DRG 872 ==
LOC: ER 22:36 → MEDSURG 05-22 00:37
PROVIDERS: Internal Medicine; Admitting Provider Student in an Organized Health Care Education/Training Program; Emergency Provider Emergency Medicine; PCP Family Medicine; Visit Provider Internal Medicine
DX: A41.51 Sepsis due to Escherichia coli [E. coli] (principal); N39.0 Urinary tract infection, site not specified; N17.9 Acute kidney failure, unspecified; Z68.41 Body mass index [BMI] 40.0-44.9, adult; J44.9 Chronic obstructive pulmonary disease, unspecified; F17.210 Nicotine dependence, cigarettes, uncomplicated; E11.9 Type 2 diabetes mellitus without complications; I10 Essential (primary) hypertension; E78.5 Hyperlipidemia, unspecified; I25.10 Atherosclerotic heart disease of native coronary artery without angina pectoris; G89.29 Other chronic pain; E66.9 Obesity, unspecified; G35 Multiple sclerosis; F41.9 Anxiety disorder, unspecified; F32.A Depression, unspecified; I25.2 Old myocardial infarction; Z79.4 Long term (current) use of insulin; Z79.82 Long term (current) use of aspirin; Z79.85 Long-term (current) use of injectable non-insulin antidiabetic drugs; Z79.891 Long term (current) use of opiate analgesic; Z86.73 Personal history of transient ischemic attack (TIA), and cerebral infarction without residual deficits; Z85.038 Personal history of other malignant neoplasm of large intestine; Z87.442 Personal history of urinary calculi; Z92.21 Personal history of antineoplastic chemotherapy; Z87.440 Personal history of urinary (tract) infections; Z90.49 Acquired absence of other specified parts of digestive tract
CPT/HCPCS: 36415; 36416; 36569; 36600; 51798; 71045; 74176; 80048; 80051; 80053; 81001; 82330; 82805; 82962; 83605; 83690; 83735; 85025; 86140; 87040; 87077; 87086; 87150; 87186; 87205; 87637; 93005; 94640; 96365; 96372; 96375; 96376; 97116; 97161; 97165; 97530; 99285; C1751; J0744; J1200; J1335; J1650; J1720; J1815; J1885; J1956; J2185; J2270; J2405; J2543; J2765; J3490; J7120; J7626; J9999; Q0162

== ENCOUNTER 2025-06-01 09:44 | Emergency (ER) | payer OTHER, MEDICAID, SELFPAY ==
--- OUTSIDE RECORDS SUMMARY | 2025-05-31 09:20 | XMS_ITS | Encounter Summary ---
Author Organization [facility] Address [address] [place] [address] Care Team Providers Care Senior Hr Generalist Name Role Phone Leah Millard DO Primary Care Provider [phone] Reason for Referral * Eval and Treat (Routine) - Open Specialty Diagnoses / Procedures Referred By Melissa oglesby Referred To Contact Urology Diagnoses Recurrent UTI Acute cystitis without hematuria Procedures NV OFFICE/OUTPATIENT ESTABLISHED MOD MDM 30 MIN NV OFFICE/OUTPATIENT NEW MODERATE MDM 45 MINUTES Leah Millard DO [address] [place] [address] Phone: tel: fax: Referral ID Status Reason Start Date Expiration Date Visits Re quested Visits Authorized [id number] Open 05/31/2025 05/31/2026 1 1 Reason for Visit * Reason Comments Chronic Conditions Coordination Follow Up 3 month Encounter Details Date Type Department Care Team (Late st Contact Info) Description 05/31/2025 9:20 AM CDT Office Visit [facility] [place] [address] [place] [address] Leah Millard DO [address] [place] [address] Recurrent UTI; Acute cystitis without hematuria; Essential hypertension; Atherosclerosis of viejas coronary artery of viejas heart without angina pectoris; Chronic respiratory failure with hypoxia and hypercapnia (CMS/HCC); Mixed hyperlipidemia; History of non-ST elevation myocardial infarction (NSTEMI); Generalized anxiety disorder; UTI symptoms; Severe obesity (BMI 35.0-39.9) with comorbidity (CMS/HCC); Obstructive sleep apnea syndrome; Type 2 diabetes mellitus with diabetic polyneuropathy, with long-term current use of insulin (CMS/HCC) Social History Tobacco Use Types Packs/Day Years [...] file Legal Sex Female 6:02 AM [employer] Gender Identity Not on file Sexual Orientation Not on file documented as of this encounter Last Filed Vital Signs Vital Sign Reading Time Taken Comments Blood Pressure 124/58 05/31/2025 9:19 AM CDT Pulse 69 05/31/2025 9:19 AM CDT Temperature 36.2 C (97.1 F) 05/31/2025 9:19 AM CDT Respiratory Rate 18 05/31/2025 9:19 AM CDT Oxygen Saturation 93% 05/31/2025 9:19 AM CDT Inhaled Oxygen Concentration - - Weight 113.9 kg (251 lb) 05/31/2025 9:19 AM CDT Height 167.6 cm (5' 6 ) 05/31/2025 9:19 AM CDT Body Mass Index 40.51 05/31/2025 9:19 AM CDT documented in this encounter Plan of Treatment Upcoming Encounters Date Type Department Care Team (Late st Contact Info) Description 06/29/2025 4:20 PM CDT Office Visit [facility] [place] [address] [place] [phone] Leah Millard, DO [address] [place] [facility] [place] [phone] 08/30/2025 2:40 PM [employer] Office Visit [facility] [address] [place] [phone] VeniceLeah jay, DO [address] [place] [facility] [place] [address] 11/28/2025 10:40 AM CDT Office Visit [facility] [address] [place] [address] Leah Millard, DO [address] [place] [address] Pending Results Name Type Priority Associated Diagnoses Date /Time CBC WITH DIFFERENTIAL Lab Routine Recurrent UTI Acute cystitis without hematuria Essential hypertension Atherosclerosis of viejas coronary artery of viejas heart without angina pectoris Chronic respiratory failure with hypoxia and hypercapnia (CMS/HCC) Mixed hyperlipidemia History of non-ST elevation myocardial infarction (NSTEMI) Generalized anxiety disorder UTI symptoms Severe obesity (BMI 35.0-39.9) with comorbidity (CMS/HCC) Obstructive sleep apnea syndrome 05/31/2025 10:35 AM CDT COMPREHENSIVE METABOLIC PANEL Lab Routine Recurrent UTI Acute cystitis without hematuria Essential hypertension Atherosclerosis of viejas coronary artery of viejas heart without angina pectoris Chronic respiratory failure with hypoxia and hypercapnia (CMS/HCC) Mixed hyperlipidemia History of non-ST elevation myocardial infarction (NSTEMI) Generalized anxiety disorder UTI symptoms Severe obesity (BMI 35.0-39.9) with comorbidity (CMS/HCC) Obstructive sleep apnea syndrome 05/31/2025 10:35 AM CDT TSH Lab Routine Recurrent UTI Acute cystitis without hematuria Essential hypertension Atherosclerosis of viejas coronary artery of viejas heart without angina pectoris Chronic respiratory failure with hypoxia and hypercapnia (CMS/HCC) Mixed hyperlipidemia History of non-ST elevation myocardial infarction (NSTEMI) Generalized anxiety disorder UTI symptoms Severe obesity (BMI 35.0-39.9) with comorbidity (CMS/HCC) Obstructive sleep apnea syndrome 05/31/2025 10:35 AM CDT LIPID PANEL Lab Routine Recurrent UTI Acute cystitis without hematuria Essential hypertension Atherosclerosis of viejas coronary artery of viejas heart without angina pectoris Chronic respiratory failure with hypoxia and hypercapnia (CMS/HCC) Mixed hyperlipidemia History of non-ST elevation myocardial infarction (NSTEMI) Generalized anxiety disorder UTI symptoms Severe obesity (BMI 35.0-39.9) with comorbidity (CMS/HCC) Obstructive sleep apnea syndrome 05/31/2025 10:35 AM CDT HEMOGLOBIN A1C Lab Routine Recurrent UTI Acute cystitis without hematuria Essential hypertension Atherosclerosis of viejas coronary artery of viejas heart without angina pectoris Chronic respiratory failure with hypoxia and hypercapnia (CMS/HCC) Mixed hyperlipidemia History of non-ST elevation myocardial infarction (NSTEMI) Generalized anxiety disorder UTI symptoms Severe obesity (BMI 35.0-39.9) with comorbidity (CMS/HCC) Obstructive sleep apnea syndrome Type 2 diabetes mellitus with diabetic polyneuropathy, with long-term current use of insulin (CMS/HCC) 05/31/2025 10:35 AM CDT URINE CULTURE Microbiology Routine Recurrent UTI 05/31/2025 10:33 AM CDT Scheduled Orders Name Type Priority Associated Diagnoses Orde r Schedule CBC WITH DIFFERENTIAL Lab Routine Recurrent UTI Acute cystitis without hematuria Essential hypertension Atherosclerosis of viejas coronary artery of viejas heart without angina pectoris Chronic respiratory failure with hypoxia and hypercapnia (CMS/HCC) Mixed hyperlipidemia History of non-ST elevation myocardial infarction (NSTEMI) Generalized anxiety disorder UTI symptoms Severe obesity (BMI 35.0-39.9) with comorbidity (CMS/HCC) Obstructive sleep apnea syndrome Expected: 05/31/2025, Expires: 05/31/2026 COMPREHENSIVE METABOLIC PANEL Lab Routine Recurrent UTI Acute cystitis without hematuria Essential hypertension Atherosclerosis of viejas coronary artery of viejas heart without angina pectoris Chronic respiratory failure with hypoxia and hypercapnia (CMS/HCC) Mixed hyperlipidemia History of non-ST elevation myocardial infarction (NSTEMI) Generalized anxiety disorder UTI symptoms Severe obesity (BMI 35.0-39.9) with comorbidity (CMS/HCC) Obstructive sleep apnea syndrome Expected: 05/31/2025, Expires: 05/31/2026 TSH Lab Routine Recurrent UTI Acute cystitis without hematuria Essential hypertension Atherosclerosis of viejas coronary artery of viejas heart without angina pectoris Chronic respiratory failure with hypoxia and hypercapnia (CMS/HCC) Mixed hyperlipidemia History of non-ST elevation myocardial infarction (NSTEMI) Generalized anxiety disorder UTI symptoms Severe obesity (BMI 35.0-39.9) with comorbidity (CMS/HCC) Obstructive sleep apnea syndrome Expected: 05/31/2025, Expires: 05/31/2026 LIPID PANEL Lab Routine Recurrent UTI Acute cystitis without hematuria Essential hypertension Atherosclerosis of viejas coronary artery of viejas heart without angina pectoris Chronic respiratory failure with hypoxia and hypercapnia (CMS/HCC) Mixed hyperlipidemia History of non-ST elevation myocardial infarction (NSTEMI) Generalized anxiety disorder UTI symptoms Severe obesity (BMI 35.0-39.9) with comorbidity (CMS/HCC) Obstructive sleep apnea syndrome Expected: 05/31/2025, Expires: 05/31/2026 HEMOGLOBIN A1C Lab Routine Recurrent UTI Acute cystitis without hematuria Essential hypertension Atherosclerosis of viejas coronary artery of viejas heart without angina pectoris Chronic respiratory failure with hypoxia and hypercapnia (CMS/HCC) Mixed hyperlipidemia History of non-ST elevation myocardial infarction (NSTEMI) Generalized anxiety disorder UTI symptoms Severe obesity (BMI 35.0-39.9) with comorbidity (CMS/HCC) Obstructive sleep apnea syndrome Type 2 diabetes mellitus with diabetic polyneuropathy, with long-term current use of insulin ([facility]/HCC) Expected: 05/31/2025, Expires: 05/31/2026 URINE CULTURE Microbiology Routine Recurrent UTI Expected: 05/31/2025, Expires: 05/31/2026 Scheduled Referrals Name Type Priority Associated Diagnoses Orde r Schedule AMB REFERRAL TO UROLOGY Outpatient Referral Routine Recurrent UTI Acute cystitis without hematuria Ordered: 05/31/2025 documented as of this encounter Procedures Procedure Name Priority Date/Time Associated Diagnosis Comments CBC WITH DIFFERENTIAL Routine 05/31/2025 10:39 AM CDT Recurrent UTI Acute cystitis without hematuria Essential hypertension Atherosclerosis of viejas coronary artery of viejas heart without angina pectoris Chronic respiratory failure with hypoxia and hypercapnia (CMS/HCC) Mixed hyperlipidemia History of non-ST elevation myocardial infarction (NSTEMI) Generalized anxiety disorder UTI symptoms Severe obesity (BMI 35.0-39.9) with comorbidity ([facility]/HCC) Obstructive sleep apnea syndrome Type 2 diabetes mellitus with diabetic polyneuropathy, with long-term current use of insulin ([facility]) TSH Routine 05/31/2025 10:39 AM CDT Recurrent UTI Acute cystitis without hematuria Essential hypertension Atherosclerosis of viejas coronary artery of viejas heart without angina pectoris Chronic respiratory failure with hypoxia and hypercapnia (CMS/HCC) Mixed hyperlipidemia History of non-ST elevation myocardial infarction (NSTEMI) Generalized anxiety disorder UTI symptoms Severe obesity (BMI 35.0-39.9) with comorbidity (CMS/HCC) Obstructive sleep apnea syndrome Type 2 diabetes mellitus with diabetic polyneuropathy, with long-term current use of insulin ([facility]) HEMOGLOBIN A1C Routine 05/31/2025 10:39 AM CDT Recurrent UTI Acute cystitis without hematuria Essential hypertension Atherosclerosis of viejas coronary artery of viejas heart without angina pectoris Chronic respiratory failure with hypoxia and hypercapnia (CMS/HCC) Mixed hyperlipidemia History of non-ST elevation myocardial infarction (NSTEMI) Generalized anxiety disorder UTI symptoms Severe obesity (BMI 35.0-39.9) with comorbidity (CMS/HCC) Obstructive sleep apnea syndrome Type 2 diabetes mellitus with diabetic polyneuropathy, with long-term current use of insulin ([facility]) LIPID PANEL Routine 05/31/2025 10:39 AM CDT Recurrent UTI Acute cystitis without hematuria Essential hypertension Atherosclerosis of viejas coronary artery of viejas heart without angina pectoris Chronic respiratory failure with hypoxia and hypercapnia (CMS/HCC) Mixed hyperlipidemia History of non-ST elevation myocardial infarction (NSTEMI) Generalized anxiety disorder UTI symptoms Severe obesity (BMI 35.0-39.9) with comorbidity (CMS/HCC) Obstructive sleep apnea syndrome Type 2 diabetes mellitus with diabetic polyneuropathy, with long-term current use of insulin ([facility]) COMPREHENSIVE METABOLIC PANEL Routine 05/31/2025 10:39 AM CDT Recurrent UTI Acute cystitis without hematuria Essential hypertension Atherosclerosis of viejas coronary artery of viejas heart without angina pectoris Chronic respiratory failure with hypoxia and hypercapnia (CMS/HCC) Mixed hyperlipidemia History of non-ST elevation myocardial infarction (NSTEMI) Generalized anxiety disorder UTI symptoms Severe obesity (BMI 35.0-39.9) with comorbidity (CMS/HCC) Obstructive sleep apnea syndrome Type 2 diabetes mellitus with diabetic polyneuropathy, with long-term current use of insulin ([facility]) POC URINALYSIS DIPSTICK AUTOMATED Routine 05/31/2025 10:36 AM CDT Recurrent UTI Acute cystitis without hematuria Essential hypertension Atherosclerosis of viejas coronary artery of viejas heart without angina pectoris Chronic respiratory failure with hypoxia and hypercapnia (CMS/HCC) Mixed hyperlipidemia History of non-ST elevation myocardial infarction (NSTEMI) Generalized anxiety disorder UTI symptoms Severe obesity (BMI 35.0-39.9) with comorbidity (CMS/HCC) Obstructive sleep apnea syndrome documented in this encounter Results * (ABNORMAL) CBC WITH DIFFERENTIAL (05/31/2025 10:39 AM CDT) WBC 13.2(H) 3.8 - 10.8 Thousand/u L [facility] RBC 4.37 3.80 - 5.10 Million/uL [facility] HEMOGLOBIN 12.0 11.7 - 15.5 g/dL [facility] HEMATOCRIT 39.0 35.0 - 45.0 % [facility] MCV 89.2 80.0 - 100.0 fL [facility] MCH 27.5 27.0 - 33.0 pg [facility] MCHC 30.8(L) 32.0 - 36.0 g/dL [facility] Comment: For adults, a slight decrease in the calculated MCHC value (in the range of 30 to 32 g/dL) is most likely not clinically significant; however, it should be interpreted with caution in correlation with other red cell parameters and the patient's clinical condition. RDW 13.0 11.0 - 15.0 % [facility] PLATELETS 328 140 - 400 Thousand/u L [facility] MPV 10.7 7.5 - 12.5 fL [facility] NEUTROPHIL ABSOLUTE 9,240(H) 1,500 - 7,800 cells/uL [facility] LYMPHOCYTE ABSOLUTE 3,128 850 - 3,900 cells/uL [facility] MONOCYTE ABSOLUTE 488 200 - 950 cells/uL [facility] EOSINOPHIL ABSOLUTE 264 15 - 500 cells/uL [facility] BASOPHILS ABSOLUTE 79 0 - 200 cells/uL [facility] NEUTROPHIL 70 % [facility] LYMPHOCYTES 23.7 % [facility] MONOCYTE 3.7 % [facility] EOSINOPHILS 2.0 % [facility] BASOPHILS 0.6 % [facility] Comment: Test Performed at: [facility] [address] [facility] [place] [address] Funmi Medellin MD Blood 05/31/2025 10:3 9 AM CDT 06/01/2025 2:39 AM CDT us Leah nAne Venice DO HEMATOLOGY ORDERABLES Final Result [facility] [phone] [facility] [address] [facility] [place] [address] * (ABNORMAL) COMPREHENSIVE METABOLIC PANEL (05/31/2025 10:39 AM CDT) GLUCOSE 91 65 - 99 mg/dL [facility] Comment: Fasting reference interval BUN 12 7 - 25 mg/dL [facility] CREATININE 1.02 0.50 - 1.05 mg/dL [facility] GFR 61 > OR = 60 mL/min/1. 73m2 [facility] BUN/CREAT RATIO SEE NOTE: 6 - 22 (calc) [facility] Comment: Not Reported: BUN and Creatinine are within reference range. SODIUM 140 135 - 146 mmol/L [facility] POTASSIUM 4.6 3.5 - 5.3 mmol/L [facility] CHLORIDE 101 98 - 110 mmol/L [facility] CO2 30 20 - 32 mmol/L [facility] CALCIUM 8.6 8.6 - 10.4 mg/dL [facility] TOTAL PROTEIN 6.4 6.1 - 8.1 g/dL [facility] ALBUMIN 3.3(L) 3.6 - 5.1 g/dL [facility] GLOBULIN 3.1 1.9 - 3.7 g/dL (calc) [facility] ALBUMIN/GLOBULIN RATIO 1.1 1.0 - 2.5 (calc) [facility] BILIRUBIN TOTAL 0.4 0.2 - 1.2 mg/dL [facility] ALKALINE PHOSPHATASE 110 37 - 153 U/L [facility] AST 13 10 - 35 U/L [facility] ALT 10 6 - 29 U/L [facility] Comment: Test Performed at: [facility] [address] [place] [address] [facility] Angie Medellin MD Blood 05/31/2025 10:3 9 AM CDT 06/01/2025 2:39 AM CDT Leah L Venice DO CHEMISTRY ORDERABLES Final Result Performing Organization Address [facility]/ZIP Co de Phone Number [facility] [phone] [facility] [address] [place] [phone] * TSH (05/31/2025 10:39 AM CDT) Pathologist [facility] TSH 0.68 0.40 - 4.50 mIU/L [facility] Comment: Test Performed at: [facility] [address] [place] [phone] [facility] MD Blood 05/31/2025 10:3 9 AM CDT 06/01/2025 2:39 AM CDT Leah L Venice DO CHEMISTRY ORDERABLES Final Result Performing Organization Address City/[facility]/ZIP Co de Phone Number [facility] [phone] [facility] [address] [place] [address] * (ABNORMAL) LIPID PANEL (05/31/2025 10:39 AM CDT) CHOLESTEROL 113 <200 mg/dL [facility] HDL 28(L) > OR = 50 mg/dL [facility] TRIGLYCERIDE 215(H) <150 mg/dL [facility] Comment: If a non-fasting specimen was collected, consider repeat triglyceride testing on a fasting specimen if clinically indicated. Linda et al. J. of Clin. Lipidol. 2015;9:129-169. LDL CALCULATED 57 mg/dL (calc) [facility] Comment: Reference range: <100 Desirable range <100 mg/dL for primary prevention; <70 mg/dL for patients with CHD or diabetic patients with > or = 2 CHD risk factors. LDL-C is now calculated using the Kandace calculation, which is a validated novel method providing better accuracy than the Friedewald equation in the estimation of LDL-C. Jeffrey SS et al. BRIANNA. 2013;310(19): 4807-9501 (http://education.TRIBAX/faq/PZR870) CHOL/HDL RATIO 4.0 <5.0 (calc) [facility] NON-HDL CHOLESTEROL 85 <130 mg/dL (calc) [facility] Comment: For patients with diabetes plus 1 major ASCVD risk factor, treating to a non-HDL-C goal of <100 mg/dL (LDL-C of <70 mg/dL) is considered a therapeutic option. Test Performed at: [facility] [address] [place] [address] Funmi Medellin MD Blood 05/31/2025 10:3 9 AM CDT 06/01/2025 2:39 AM CDT Leah Millard DO CHEMISTRY ORDERABLES Final Result [facility] [phone] [facility] [address] [place] [address] * (ABNORMAL) HEMOGLOBIN A1C (05/31/2025 10:39 AM CDT) HEMOGLOBIN A1C 6.5(H) <5.7 % [facility] Comment: For someone without known diabetes, a [...] diabetes for children. ESTIMATED AVERAGE GLUCOSE (MG/DL) 140 mg/dL [facility] ESTIMATED AVERAGE GLUCOSE (MMOL/L) 7.7 mmol/L [facility] Comment: Test Performed at: [facility] [address] [place] [address] Funmi Medellin MD Blood 05/31/2025 10:3 9 AM CDT 06/01/2025 2:39 AM CDT us Leah Millard DO CHEMISTRY ORDERABLES Final Result [facility] [phone] [facility] [employer] [address] [place] [address] * (ABNORMAL) POC URINALYSIS DIPSTICK AUTOMATED (05/31/2025 10:36 AM CDT) COLOR UA POC Yellow Pale to Dark Yellow [facility] CLARITY UA POC Cloudy(A) Clear, Other ME [facility] GLUCOSE UA POC Negative Negative, Normal [facility] BILIRUBIN UA POC Negative Negative [facility] KETONES UA POC Negative Negative [facility] SPECIFIC GRAVITY UA POC 1.020 1.000 - 1.030 [facility] BLOOD UA POC Trace(A) Negative [facility] PH UA POC 6.0 5.0 - 8.0 [facility] IC [facility] PROTEIN UA POC Negative Negative [facility] UROBILINOGEN UA POC 0.2 <2.0 mg/dL [facility] NITRITE UA POC Negative Negative [facility] LEUKOCYTE ESTERASE UA POC 1+(A) Negative [facility] KIT LOT NUMBER POC [phone] [facility] KIT EXP DATE POC [id number] [facility] Urine 05/31/2025 10:3 6 AM CDT eLah Millard DO POINT OF CARE TESTING Final Result [facility] CLIA# [id number] [address] [place] [address] documented in this encounter Visit Diagnoses Diagnosis Recurrent UTI Urinary tract infection, site not specified Acute cystitis without hematuria Acute cystitis Essential hypertension Unspecified essential hypertension Atherosclerosis of viejas coronary artery of viejas heart without angina pectoris Chronic respiratory failure with hypoxia and hypercapnia (CMS/HCC) Mixed hyperlipidemia History of non-ST elevation myocardial infarction (NSTEMI) Old myocardial infarction Generalized anxiety disorder UTI symptoms Severe obesity (BMI 35.0-39.9) with comorbidity (CMS/HCC) Obstructive sleep apnea syndrome Obstructive sleep apnea (adult) (pediatric) Type 2 diabetes mellitus with diabetic polyneuropathy, with long-term current use of insulin (CMS/[facility]) documented in this encounter Additional Health Concerns Assessment Noted Time PHQ-9 Depression Total Score: 2 10/11/19 25 12:26 PM [employer] documented as of this encounter Care Teams Senior Hr Generalist Relationship Specialty Start Date End Date Leah Millard DO [address] [place] [address] PCP - General Family Practice 10/05/18 documented as of this encounter
--- OUTSIDE RECORDS SUMMARY | 2025-06-01 09:50 | XMS_ITS | Clinical Summary ---
Author Organization [facility] Address [address] [facility] [address] Care Team Providers Care Retouching Operator Name Role Phone Aminata Millardorah Anne [facility] Primary Care Provider Allergies Active Allergy Reactions [...] 23 Active docusate sodium (COLACE) 100 mg capsuleIndications :Slow transit constipation Take 2 Capsules (200 mg) by mouth 2 times daily. 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 She has to do multiple shots of insulin daily and hard to control 1 Each 05/15/20 23 Active power wheelchairIndicati ons:Chronic midline low back pain with right-sided sciatica,Type 2 diabetes mellitus with stage 3a chronic kidney disease, with long-term current use of insulin (CMS/HCC),Essentia l hypertension,Essen tial tremor,Atheroscler osis of [place] coronary artery of [place] heart without angina pectoris,Multiple sclerosis (CMS/HCC),History of CVA with residual deficit,Chronic respiratory failure with hypoxia and hypercapnia (CMS/HCC),Chronic obstructive pulmonary disease, unspecified COPD type (CMS/HCC),History of non-ST elevation myocardial infarction (NSTEMI) Face to Face completed within 6 months: yes Length of Need: 99 months 1 Each 05/15/20 23 Active mupirocin (BACTROBAN) 2 % OintmentIndication s:Cellulitis of lower extremity, unspecified laterality,Insect bite of right lower extremity, initial encounter Apply to affected area daily. 15 Gram 1 06/17/20 23 Active albuterol (PROVENTIL,VENTOLI N) 2.5 mg /3 mL (0.083 %) Solution for NebulizationIndica tions:Chronic obstructive pulmonary disease, unspecified COPD type (CMS/HCC),Chronic respiratory failure with hypoxia and hypercapnia (CMS/HCC) Take 3 mL (2.5 mg) by inhalation every 6 hours as needed for Shortness of Breath or Wheezing. Dispense box of 25 3 mL 1 07/07/20 23 Active budesonide-formote roL (SYMBICORT) 160-4.5 mcg/actuation HFA Aerosol InhalerIndications :Chronic obstructive pulmonary disease, unspecified COPD type (CMS/HCC),Chronic respiratory failure with hypoxia and hypercapnia (CMS/HCC) Take 2 Puffs by inhalation 2 times daily. 1 Gram 6 07/07/20 23 Active traZODone (DESYREL) 150 mg tablet TAKE 1 TO 2 TABLETS BY MOUTH AT BEDTIME NEEDED FOR INSOMNIA 06/09/20 23 Active ALPRAZolam (Xanax) 0.5 mg tabletIndications: Situational anxiety Take 1 Tablet (0.5 mg) by mouth 1 time daily as needed for Anxiety. 30 Tablet 09/10/20 23 Active meclizine (ANTIVERT) 25 mg tabletIndications: Dizziness Take 1 Tablet (25 mg) by mouth [...] U-500, Conc, Kwikpen 500 unit/mL (3 mL) penIndications:Typ e 2 diabetes mellitus with stage 3a chronic kidney disease, with long-term current use of insulin (CMS/HCC) Inject 250 Units by subcutaneous injection 3 times daily. 30 mL 6 07/28/20 24 Active albuterol sulfate HFA 90 mcg/actuation aerosol inhalerIndications :Chronic obstructive pulmonary disease, unspecified COPD type (CMS/HCC),Chronic [...] 10/11/19 25 Active atorvastatin (LIPITOR) 80 mg tabletIndications: Mixed hyperlipidemia Take 1 tablet by mouth once daily 100 Tablet 3 10/20/19 25 Active cetirizine (ZyrTEC) 10 mg tabletIndications: Environmental and seasonal allergies Take 1 Tablet (10 mg) by mouth daily. 90 Tablet 3 12/14/19 25 Active pregabalin (LYRICA) 100 mg Capsule Take 1 Capsule (100 mg) by mouth 2 times daily. 60 Capsule 5 01/09/20 25 Active portable oxygenIndications: Panlobular emphysema (CMS/HCC),Chronic respiratory failure with hypoxia and [...] 03/01/20 25 Active clobetasoL (TEMOVATE) 0.05 % CreamIndications:P laque psoriasis APPLY CREAM TOPICALLY TO AFFECTED AREA TWICE DAILY 45 Gram 3 03/06/20 25 Active spironolactone (ALDACTONE) 25 mg tabletIndications: Essential hypertension Take 1 Tablet (25 mg) by mouth daily. 100 Tablet 3 03/15/20 25 Active mirabegron (MYRBETRIQ) 25 mg Extended Release 24 hour tabletIndications: OAB (overactive bladder) Take 1 Tablet (25 mg) by mouth daily. 30 Tablet 2 03/30/20 25 Active nitrofurantoin (MACROBID) 100 mg capsuleIndications :Recurrent UTI Take 1 Capsule (100 mg) by mouth daily. 30 Capsule 4 04/03/20 25 Active Blood-Glucose Sensor (Dexcom G7 Sensor) Device USE DIRECTED AND CHANGE EVERY 10 DAYS 3 Each 04/16/20 25 Active lidocaine (LIDODERM) 5 % Adhesive Patch, Medicated USE 1 TO 3 PATCHES EXTERNALLY TO AFFECTED AREA EVERY 24 HOURS 90 Patch 2 04/18/20 25 Active oxyCODONE (ROXICODONE) 10 mg tabletIndications: Chronic midline low back pain with right-sided sciatica Take 1 Tablet (10 mg) by mouth 3 times daily as needed for Pain, Moderate. Max Daily Amount: 30 mg 90 Tablet 05/28/20 25 Active oxyCODONE (ROXICODONE) 10 mg tabletIndications: Chronic midline low back pain with right-sided sciatica Take 1 Tablet (10 mg) by mouth 3 times daily as needed for Pain, Moderate. 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 05/29/2015 10/17/2024 Encounters Date Type Department Care Team Description 05/31/2025 9:20 AM CDT Office Visit [facility] [address] [place] [address] Leah Millard DO Recurrent UTI; Acute cystitis without hematuria; Essential hypertension; Atherosclerosis of [place] coronary artery of [place] heart without angina pectoris; Chronic respiratory failure with hypoxia and hypercapnia ([facility]); Mixed hyperlipidemia; History of non-ST elevation myocardial infarction (NSTEMI); Generalized anxiety disorder; UTI symptoms; Severe obesity (BMI 35.0-39.9) with comorbidity ([facility]); Obstructive sleep apnea syndrome; Type 2 diabetes mellitus with diabetic polyneuropathy, with long-term current use of insulin ([facility]) 05/27/2025 Refill [facility] [address] [place] [address] Leah Millard DO Chronic midline low back pain with right-sided sciatica 05/23/2025 External Device Data STL ABSTRACTION Provider, Abstract 05/22/2025 Orders Only [facility] [address] [place] [address] Provider, Abstract 05/16/2025 External Device Data STL ABSTRACTION Provider, Abstract 05/16/2025 External Device Data STL ABSTRACTION Provider, Abstract 05/04/2025 Refill [facility] [address] [place] [address] Khalida Amina, ROLL TENSION TESTER Recurrent UTI 05/04/2025 Refill [facility] [address] [place] [address] Leah Millard, DO 05/02/2025 Medication Prior Auth Encounter [facility] [address] [place] [address] Karen Rodrigues 05/01/2025 Telephone [facility] [address] [place] [address] Leah Millard, DO Medication Question; Medication Authorization; Medication Assistance 04/19/2025 External Device Data STL ABSTRACTION Provider, Abstract 04/18/2025 Refill [facility] [address] [place] [address] Leah Millard, DO 04/16/2025 Refill [facility] [address] [place] [address] Leah Millard, DO 04/05/2025 Refill [facility] [address] [place] [address] Leah Millard, DO 04/04/2025 External Device Data STL ABSTRACTION Provider, Abstract 04/03/2025 Results Follow-Up [facility] [address] [place] [address] December, ROLL TENSION TESTER URINE CULTURE 03/30/2025 12:00 PM CDT Office Visit [facility] [address] [place] [address] December, ROLL TENSION TESTER Acute cystitis without hematuria (Primary Dx); Skin tear of hand without complication, initial encounter; Screening mammogram, encounter for; OAB (overactive bladder) 03/30/2025 Refill [facility] [address] [place] [address] Leah Millard, Chronic midline low back pain with right-sided sciatica 03/29/2025 External Device Data STL ABSTRACTION Provider, Abstract [facility] [address] [place] [facility] [place] [address] Leah Millard, 03/15/2025 Refill [facility] [address] [place] [facility] [place] [address] Leah Millard, Essential hypertension (Primary Dx) 03/06/2025 Refill [facility] [address] [place] [facility] [place] [address] Leah Millard, DO Plaque psoriasis 03/01/2025 Telephone [facility] [address] [place] [address] Leah Millard, Medication Assistance [facility] [address] [place] [address] Leah Millard, DO Chronic midline low back [...] Name Comments Heart Disease Brother 1 Max Everettmuth Heart Disease Brother 2 Cj Everettmuth Heart Disease Brother 3 Martin Everettmuth Cancer Father Rob Everettmutchandana Colon Cancer Father Rob Everettmutchandana Heart Disease Father Rob Everettmutchandana Hypertension Father Rob Everettmutchandana Other Father Rob Gunter Parkinson di sease Depression Mother Margi Gunter Mental illness Mother Margi Gunter Other Mother Margi Gunter Parkison disease Colon Cancer Other SELF Relation Name Status Comments Brother 1 Max Everettmuth Alive Brother 2 Cj Frekarenmuth Brother 3 Martin Everettmuth Father Rob Gunter Mother Margi Gunter Alive [...] on file Legal Sex 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 Gender Identity Not on file Sexual Orientation [...] Mass Index 40.51 05/31/2025 9:19 AM CDT Plan of Treatment Upcoming Encounters Date Type Department Care Team (Late st Contact Info) Description 06/29/2025 4:20 PM CDT Office Visit [facility] [address] [place] [facility] [place] [address] Leah Millard, DO [address] [place] [facility] [place] [address] 08/30/2025 2:40 PM CONSTRUCTION FIELD ENGINEER Office Visit [facility] [address] [place] [facility] [place] [address] Leah Millard, DO [address] [place] [facility] [place] [phone] 11/28/2025 10:40 AM CDT Office Visit [facility] [address] [place] [facility] [place] [phone] Leah Millard, DO [address] [place] [facility] [place] [phone] Health Maintenance Due Date Last Done Comments [...] BREAST CANCER SCREENING 03/23/2025 03/23/20, 01/05/2019, 01/05/2019 INFLUENZA VACCINE (#1) 2025 4, 06/04/2023, 06/03/2022, Additional history exists COVID-19 Vaccine (4 - 2024-2 6 season) 2025 08/13/2021, 02/04/2021, 01/07/2021 Traditional Medicare (ACO) A nnual Wellness Visit 10/12/2025 10/11/2024 DIABETES MICROALBUMIN ANNUAL SCREEN 11/08/2025 11/08/2024, 03/02/2024, 10/05/2018 DIABETES HBA1C Q 6 MONTHS 11/28/20252024, 10/11/2024, 05/25/2024, Additional history exists DIABETES ANNUAL RETINAL EXAM 12/20/202504/2025, 07/06/2024, 01/22/2021 DIABETES: A1C (Auto Order) 05/31/202605/31, 10/11/2024, 05/25/2024, Additional history exists LDL CHOLESTEROL ANNUAL 05/31/2026 , 10/11/2024, 05/25/2024, Additional history exists COLORECTAL SCREENING Discontinued 04/04/2020 Colorectal Cancer Screening Discontinued [place] Preventative Visit/Annual Wellness Visit Completed 10/11/2024 [facility] uACR (Auto Order) Completed 02/14/2025 , 11/08/2024, 03/02/2024, Additional history exists [facility] eGFR (Auto Order) Completed 05/31/2025 , 05/21/2025, 10/11/2024, Additional history exists FIT-DNA Q 3 years Discontinued FIT/FOBT Q 1 year Discontinued Flex Sig/CT Colonography Q 5 years Discontinued Procedures Procedure Name Priority Date/Time Associated Diagnosis Comments CBC WITH DIFFERENTIAL Routine 05/31/2025 10:39 AM CDT Recurrent UTI Acute cystitis without hematuria Essential hypertension Atherosclerosis of [place] coronary artery of [place] heart without angina pectoris Chronic respiratory failure with hypoxia and hypercapnia ([facility]/HCC) Mixed hyperlipidemia History of non-ST elevation myocardial infarction (NSTEMI) Generalized anxiety disorder UTI symptoms Severe obesity (BMI 35.0-39.9) with comorbidity ([facility]) Obstructive sleep apnea syndrome Type 2 diabetes mellitus with diabetic polyneuropathy, with long-term current use of insulin (CMS/HCC) COMPREHENSIVE METABOLIC PANEL Routine 05/31/2025 10:39 AM CDT Recurrent UTI Acute cystitis without hematuria Essential hypertension Atherosclerosis of [place] coronary artery of [place] heart without angina pectoris Chronic respiratory failure with hypoxia and hypercapnia (CMS/HCC) Mixed hyperlipidemia History of non-ST elevation myocardial infarction (NSTEMI) Generalized anxiety disorder UTI symptoms Severe obesity (BMI 35.0-39.9) with comorbidity (CMS/HCC) Obstructive sleep apnea syndrome Type 2 diabetes mellitus with diabetic polyneuropathy, with long-term current use of insulin (CMS/HCC) TSH Routine 05/31/2025 10:39 AM CDT Recurrent UTI Acute cystitis without hematuria Essential hypertension Atherosclerosis of [place] coronary artery of [place] heart without angina pectoris Chronic respiratory failure with hypoxia and hypercapnia (CMS/HCC) Mixed hyperlipidemia History of non-ST elevation myocardial infarction (NSTEMI) Generalized anxiety disorder UTI symptoms Severe obesity (BMI 35.0-39.9) with comorbidity (CMS/HCC) Obstructive sleep apnea syndrome Type 2 diabetes mellitus with diabetic polyneuropathy, with long-term current use of insulin (CMS/HCC) LIPID PANEL Routine 05/31/2025 10:39 AM CDT Recurrent UTI Acute cystitis without hematuria Essential hypertension Atherosclerosis of [place] coronary artery of [place] heart without angina pectoris Chronic respiratory failure with hypoxia and hypercapnia (CMS/HCC) Mixed hyperlipidemia History of non-ST elevation myocardial infarction (NSTEMI) Generalized anxiety disorder UTI symptoms Severe obesity (BMI 35.0-39.9) with comorbidity (CMS/HCC) Obstructive sleep apnea syndrome Type 2 diabetes mellitus with diabetic polyneuropathy, with long-term current use of insulin (CMS/HCC) HEMOGLOBIN A1C Routine 05/31/2025 10:39 AM CDT Recurrent UTI Acute cystitis without hematuria Essential hypertension Atherosclerosis of [place] coronary artery of [place] heart without angina pectoris Chronic respiratory failure with hypoxia and hypercapnia (CMS/HCC) Mixed hyperlipidemia History of non-ST elevation myocardial infarction (NSTEMI) Generalized anxiety disorder UTI symptoms Severe obesity (BMI 35.0-39.9) with comorbidity (CMS/HCC) Obstructive sleep apnea syndrome Type 2 diabetes mellitus with diabetic polyneuropathy, with long-term current use of insulin ([facility]) POC URINALYSIS DIPSTICK AUTOMATED Routine 05/31/2025 10:36 AM CDT Recurrent UTI Acute cystitis without hematuria Essential hypertension Atherosclerosis of [place] coronary artery of [place] heart without angina pectoris Chronic respiratory failure with hypoxia and hypercapnia ([facility]) Mixed hyperlipidemia History of non-ST elevation myocardial infarction (NSTEMI) Generalized anxiety disorder UTI symptoms Severe obesity (BMI 35.0-39.9) with comorbidity ([facility]) Obstructive sleep apnea syndrome COMPREHENSIVE METABOLIC PANEL Routine 05/21/2025 12:50 PM CDT URINE CULTURE Routine 03/30/2025 12:38 PM CDT Acute cystitis without hematuria DIABETES EYE EXAM Routine 12/20/2024 10:14 AM CDT MICROALBUMIN/CREATININ E RATIO, RANDOM UR Routine 11/08/2024 2:52 PM CONSTRUCTION FIELD ENGINEER Type 2 diabetes mellitus with stage 3a chronic kidney disease, with long-term current use of insulin ([facility]) MAMMO 3D BON SCREEN BILAT W OR WO CAD Routine 03/23/2024 9:51 AM CDT Screening mammogram, encounter for ENDOSCOPY, COLON, SCREENING 04/04/2020 12:00 AM CDT DIABETES FOOT EXAM 12/27/2018 12:00 AM CDT from Last 3 Months or Most Recently Relevant to Health Maintenance Results * (ABNORMAL) CBC WITH DIFFERENTIAL (05/31/2025 [...] [facility] Comment: Test Performed at: [facility] [address] [place] [address] Funmi Medellin MD Blood 05/31/2025 10:3 9 AM CDT 06/01/2025 2:39 AM CDT us Leah Millard DO HEMATOLOGY ORDERABLES Final Result [facility] [phone] [facility] [address] [place] [address] * TSH (05/31/2025 10:39 AM CDT) TSH 0.68 0.40 - 4.50 mIU/L [facility] Comment: Test Performed at: [facility] [address] [address] Funmi Medellin MD Blood 05/31/2025 10:3 9 AM CDT 06/01/2025 2:39 AM CDT Leah L Venice DO CHEMISTRY ORDERABLES Final Result [facility] [phone] [facility] [address] [address] [address] * (ABNORMAL) HEMOGLOBIN A1C (05/31/2025 10:39 AM CDT) HEMOGLOBIN A1C 6.5(H) <5.7 % [facility] Comment: For someone without known diabetes, [...] [facility] Comment: Test Performed at: [facility] [address] [place] [address] Funmi Medellin MD Blood 05/31/2025 10:3 9 AM CDT 06/01/2025 2:39 AM CDT us Leah Snellehan DO CHEMISTRY ORDERABLES Final Result [facility] [phone] [facility] [address] [place] [address] * (ABNORMAL) LIPID PANEL (05/31/2025 10:39 AM CDT) CHOLESTEROL 113 <200 mg/dL [facility] HDL 28(L) > OR = 50 mg/dL [facility] TRIGLYCERIDE 215(H) <150 mg/dL [facility] Comment: If a non-fasting specimen was collected, consider repeat triglyceride testing on a fasting specimen if clinically indicated. Linda et al. J. of Clin. Lipidol. 2015;9:129-169. LDL CALCULATED 57 mg/dL (calc) [facility] Comment: Reference [...] LDL-C. Jeffrey SS et al. BRIANNA. 2013;310(19): 0150-7356 (http://education.[employer]/faq/XSV736) CHOL/HDL RATIO 4.0 <5.0 (calc) [facility] NON-HDL CHOLESTEROL 85 <130 mg/dL (calc) [facility] Comment: For patients with diabetes plus 1 major ASCVD risk factor, treating to a non-HDL-C goal of <100 mg/dL (LDL-C of <70 mg/dL) is considered a therapeutic option. Test Performed at: [facility] [address] [place] [address] Funmi Medellin MD Blood 05/31/2025 10:3 9 AM CDT 06/01/2025 2:39 AM CDT us Leah Millard DO CHEMISTRY ORDERABLES Final Result [facility] [phone] [facility] [address] [place] [address] * (ABNORMAL) COMPREHENSIVE METABOLIC PANEL (05/31/2025 10:39 AM CDT) Only the most recent of2 resultswithin the time period is included. GLUCOSE 91 65 - 99 mg/dL [facility] [...] [facility] Comment: Test Performed at: [facility] [address] [address] [address] Funmi Medellin MD Blood 05/31/2025 10:3 9 AM CDT 06/01/2025 2:39 AM CDT us Leah Millard DO CHEMISTRY ORDERABLES Final Result [facility] [phone] [facility] [address] [facility] [place] [address] * (ABNORMAL) POC URINALYSIS DIPSTICK AUTOMATED (05/31/2025 10:36 AM CDT) COLOR UA POC Yellow Pale to Dark Yellow [facility] CLARITY UA POC Cloudy(A) Clear, Other [facility] GLUCOSE UA POC Negative Negative, Normal [facility] BILIRUBIN UA POC Negative Negative [facility] KETONES UA POC Negative Negative [facility] SPECIFIC GRAVITY UA POC 1.020 1.000 - 1.030 [facility] BLOOD UA POC Trace(A) Negative [facility] UA POC 6.0 5.0 - 8.0 [facility] PROTEIN UA POC Negative Negative [facility] UROBILINOGEN UA POC 0.2 <2.0 mg/dL [facility] NITRITE UA POC Negative Negative [facility] LEUKOCYTE ESTERASE UA POC 1+(A) Negative [facility] KIT LOT NUMBER POC [phone] [facility] KIT EXP DATE POC [id number] [facility] Urine 05/31/2025 10:3 6 AM CDT us Leah Millard DO POINT OF CARE TESTING Final Result [facility] CLIA# [id number] [facility] [place] [address] * (ABNORMAL) URINE CULTURE (03/30/2025 12:38 PM CDT) URINE CULTURE SEE NOTE(A) [facility] Comment: CULTURE, URINE, ROUTINE Micro Number: [id number] Test Status: Final Specimen Source: Urine, clean [...] cefuroxime, cephalexin and loracarbef. Test Performed at: [facility] [address] [facility] [place] [address] Funmi Medellin MD Urine URINE SPECIMEN OBTAINED BY CLEAN CATCH PROCEDURE / Unknown 03/30/2025 12:38 PM CDT 03/31/2025 3:02 AM CDT December ROLL TENSION TESTER MICROBIOLOGY - GENERAL ORDERABLE S Final Result [facility] [phone] [facility] [address] [place] [address] * DIABETES EYE EXAM (12/20/2024 10:14 AM CDT) us Abstract Provider HEALTH MAINTENANCE Edited Resu lt - Final * MICROALBUMIN/CREATININE RATIO, RANDOM UR (11/08/2024 2:52 PM CONSTRUCTION FIELD ENGINEER) Creatinine, Urine 135 20 - 275 mg/dL [facility] MICROALBUMIN, URINE 0.7 See Note: mg/dL [facility] Comment: Reference Range: Reference Range Not established MICROALBUMIN/CREAT RATIO, UR 5 <30 mg/g creat [facility] Comment: The ADA defines abnormalities in albumin excretion as follows: Albuminuria Category Result (mg/g creatinine) Normal to Mildly increased <30 Moderately increased 30-299 Severely increased > OR = 300 The ADA recommends that at least two of three specimens collected within a 3-6 month period be abnormal before considering a patient to be within a diagnostic category. Test Performed at: [facility] [address] [place] [address] Funmi Medellin MD Urine URINE SPECIMEN OBTAINED BY CLEAN CATCH PROCEDURE / Unknown 11/08/2024 2:52 PM CONSTRUCTION FIELD ENGINEER 11/09/2024 5:16 AM CONSTRUCTION FIELD ENGINEER Leah Millard DO URINE ORDERABLES Final Resu lt [facility] [phone] [facility] [address] [place] [address] * MAMMO 3D BON SCREEN BILAT W [...] masses, calcifications, or areas of architectural distortion. Nighat Sharpe ROLL TENSION TESTER MAMMO ORDERABLES Final Res ult * ENDOSCOPY, COLON, SCREENING (04/04/2020 12:00 AM CDT) us Sgf Scanning GI PROCEDURE ORDERABLES Final Re sult * HM DIABETES FOOT EXAM (12/27/2018 12:00 AM CDT) Marleni Zimmer ROLL TENSION TESTER HEALTH MAINTENANCE Final Result from Last 3 Months or Most Recently Relevant to Health Maintenance Insurance [place] [facility] DUAL COMPLETE HMO DSNP [facility] [id number] Care Teams Retouching Operator Relationship Specialty Start Date End Date Leah Millard DO [address] [place] [phone] PCP - General Family Practice 10/05/18
--- OUTSIDE RECORDS SUMMARY | 2025-06-01 09:50 | XMS_ITS | Encounter Summary ---
Author Organization [facility] Address [address] [place] [address] Care Team Providers Care Field Crop Farmer Name Role Phone Leah Millard DO Primary Care Provider [phone]- [phone] Encounter Details Date Type Department Care Team (Late Contact Info) Description 05/22/2025 Orders Only [facility] [address] [place] [address] Provider, Abstract NO ADDRESS ON FILE Social [...] on file Legal Sex Female 6:02 AM C APPLICATION DEVELOPER Gender Identity Not on file Sexual Orientation Not on file documented as of this encounter Plan of Treatment Upcoming Encounters Date Type Department Care Team (Late st Contact Info) Description 06/29/2025 4:20 PM CDT Office Visit [facility] [place] [address] [place] [phone] Leah Millard DO [address] [place] [phone] 08/30/2025 2:40 PM C APPLICATION DEVELOPER Office Visit [facility] [address] [facility] [place] [address] VeniceLeah jay, DO [address] [place] [facility] [address] 11/28/2025 10:40 AM CDT Office Visit [facility] [address] [facility] [place] [address] Leah Millard, DO [address] [place] [facility] [phone] documented as of this encounter Procedures Procedure Name Priority Date/Time Associated Diagnosis Comments COMPREHENSIVE METABOLIC PANEL Routine 05/21/2025 12:50 PM CDT documented in this encounter Results * COMPREHENSIVE METABOLIC PANEL (05/21/2025 12:50 PM CDT) Blood us Abstract Provider CHEMISTRY ORDERABLES Final Res ult documented in this encounter Visit Diagnoses Not on filedocumented in this encounter Additional Health Concerns Assessment Noted Time PHQ-9 Depression Total Score: 2 10/11/19 25 12:26 PM C APPLICATION DEVELOPER documented as of this encounter Care Teams Field Crop Farmer Relationship Specialty Start Date End Date Leah Millard DO [address] [place] [facility] [place] [address] PCP - General Family Practice 10/05/18 documented as of this encounter
--- OUTSIDE RECORDS SUMMARY | 2025-06-01 09:50 | XMS_ITS | Encounter Summary ---
Author Organization [facility] Address [address] [place] [address] Care Team Providers Care Clinical Documentation Improvement Specialist Name Role Phone Leah Millard DO Primary Care Provider [phone]- [phone] Reason for Visit * Reason Onset Date Comments Medication Refill 05/27/2025 Encounter Details Date Type Department Care Team (Late Contact Info) Description 05/27/2025 Refill [facility] [address] [place] [address] Leah Millard DO [address] [place] [address] Chronic midline low back pain with right-sided sciatica Social History Tobacco Use Types Packs/Day Years [...] on file Legal Sex Female 6:02 AM PICTURE COPYIST Gender Identity Not on file Sexual Orientation Not on file documented as of this encounter Plan of Treatment Upcoming Encounters Date Type Department Care Team (Late Contact Info) Description 06/29/2025 4:20 PM CDT Office Visit [facility] [address] [place] [address] Leah Millard, DO [address] [place] [facility] [address] 08/30/2025 2:40 PM PICTURE COPYIST Office Visit [facility] [address] [place] [facility] [address] Leah Millard, DO [address] [place] [facility] [address] 11/28/2025 10:40 AM CDT Office Visit [facility] [address] [place] [facility] [address] Leah Millard, DO [address] [place] [address] documented as of this encounter Visit Diagnoses Diagnosis Chronic midline low back pain with right-sided sciatica documented in this encounter Additional Health Concerns Assessment Noted Time PHQ-9 Depression Total Score: 2 10/11/19 25 12:26 PM PICTURE COPYIST documented as of this encounter Care Teams Clinical Documentation Improvement Specialist Relationship Specialty Start Date End Date Leah Millard DO [address] [place] [address] PCP - General Family Practice 10/05/18 documented as of this encounter
--- OUTSIDE RECORDS SUMMARY | 2025-06-01 09:50 | XMS_ITS | Clinical Summary ---
Author Organization [facility] Address [address] [place] [address] Care Team Providers Care Spa Associate Name Role Phone Leah Millard Primary Care [...] hyperglycemia, with long-term current use of insulin ([facility]) Check blood sugars TID. Meter [...] unspecified vessel or lesion type, unspecified whether makah or transplanted heart Take 1 Tablet (30 mg) by mouth daily in the morning. 90 Tablet 3 08/13/20 20 Active cyanocobalamin 1,000 mcg TabletIndications: Vitamin B12 deficiency (non anemic) Take 1 Tablet (1,000 mcg) by mouth daily. 90 Tablet 3 08/13/20 20 Active montelukast (SINGULAIR) 10 mg tabletIndications: Chronic obstructive pulmonary disease, unspecified COPD type ([facility]) Take 1 Tablet (10 mg) [...] Anxiety. 30 Tablet 10/09/19 21 Active Insulin Wells, Disposable, 32 gauge x 5/16 NeedleIndications: Type [...] disease, with long-term current use of insulin ([facility]) Inject 30 units SQ two times daily 15 mL 2 01/29/20 Active dapagliflozin (Farxiga) 10 mg TabletIndications: Elevated blood sugar,Type 2 diabetes mellitus with stage 3a chronic kidney disease, with long-term current use of insulin ([facility]) Take 1 Tablet (10 mg) by mouth daily. 30 Tablet 3 01/29/20 Active atorvastatin (LIPITOR) 40 mg tabletIndications: Mixed hyperlipidemia Take 1 Tablet (40 mg) by mouth daily. 90 Tablet 4 01/29/20 Active insulin lispro (HumaLOG KwikPen Insulin) 200 unit/mL pen syringeIndications :Type 2 diabetes mellitus with hyperglycemia, with long-term current use of insulin ([facility]),Type 2 diabetes mellitus with other circulatory complication, with long-term current use of insulin ([facility]) Inject subcutaneous 3 times daily [...] hyperglycemia, with long-term current use of insulin ([facility]) Take 1 Tablet (50 mg) [...] Chronic obstructive pulmonary disease 05/29/2015 Atherosclerosis of makah co ronary artery of makah heart without angina pectoris 05/29/2015 Diabetes mellitus 05/29/2015 Resolved Problems Problem Noted Date Diagnosed Date Resolved Date Stable angina 11/02/2019 01/01/2020 Morbid obesity with body mas s index of 40.0-49.9 11/02/2019 11/08/2020 Tobacco use 11/02/2019 01/19/2021 CT (myocardial infarction) 04/09/2016 0 11/02/2019 Immunizations Immunization [...] on file Legal Sex Female 4:46 AM GROVE SUPERINTENDENT Gender Identity Not on file Sexual Orientation [...] 10/24/2020 HEMOGLOBIN A1C Routine 10/09/2020 12:19 PM GROVE SUPERINTENDENT Type 2 diabetes mellitus with other circulatory complication, with long-term current use of insulin ([facility]) MAMMO SCREEN BILAT W OR WO CAD Routine 01/05/2019 Screening for breast cancer HM DIABETES FOOT EXAM Routine 12/27/2018 MICROALBUMIN/CREATI NINE RATIO, RANDOM UR Routine 10/05/2018 1:32 PM GROVE SUPERINTENDENT Type 2 diabetes mellitus with hyperglycemia, with long-term current use of insulin ([facility]) from Last 3 Months or [...] CHEMISTRY ORDERABLES Final Result Performing Organization Address City/[facility]/ZIP Co de Phone Number EXTERNAL LAB * HEMOGLOBIN A1C (10/09/2020 12:19 PM GROVE SUPERINTENDENT) HEMOGLOBIN A1C 5.3 See Comment % 10/09/2020 8:27 PM GROVE SUPERINTENDENT [facility] EST. AVG GLUCOSE, A1C 105 mg/dL 10/09/2020 8:27 PM GROVE SUPERINTENDENT [facility] Blood Venipuncture / Unknown 10/09/2020 12:19 PM GROVE SUPERINTENDENT 10/09/2020 8:09 PM GROVE SUPERINTENDENT Narrative [facility] - 10/09/2020 8:27 PM GROVE SUPERINTENDENT HGB A1C INTERPRETATION NORMAL: <5.7% PRE-DIABETES: 5.7 - 6.4% DIABETES: 6.5% OR GREATER Falsely low A1C measurements can occur when: 1. Anemia and/or hemolytic anemia is present. 2. Hemoglobin variants present. 3. Renal failure. 4. Transfusion of blood product in the last 120 days. We recommend ordering a fructosamine test([id number]) to more accurately assess glycemic status if any of the above conditions are present. Leah Millard DO CHEMISTRY ORDERABLES Final Result Performing Organization Address City/[facility]/ZIP Co de Phone Number [facility] CLIA# [id number] [address] [place] [address] * MAMMO SCREEN BILAT W OR WO CAD (01/05/2019) Anatomical Region Laterality Modality Breast Bilateral Mammography Marleni [place] MAMMO ORDERABLES Final R esult * HM DIABETES FOOT EXAM (12/27/2018) Marleni [place] HEALTH MAINTENANCE Final Result * (ABNORMAL) MICROALBUMIN/CREATININE RATIO, RANDOM UR (10/05/2018 1:32 PM GROVE SUPERINTENDENT) MICROALBUMIN, URINE <1.2 No Reference Range mg/dL 10/05/2018 9:[address] [facility] CREATININE, URINE 20.2(L) 29.0 - 226.0 mg/dL 10/05/2018 9:[address] [facility] Comment: Reference Range varies with fluid intake and diet. Urine URINE SPECIMEN OBTAINED BY CLEAN CATCH PROCEDURE / Unknown Collection / Unknown 10/05/2018 1:32 PM GROVE SUPERINTENDENT 10/05/2018 7:59 PM GROVE SUPERINTENDENT Narrative [facility] - 10/05/2018 9:36 PM GROVE SUPERINTENDENT Condition Microalbumin/Creat ratio Normal Males <17 Normal Females <25 Microalbuminuria Males 17-299 Microalbuminuria Females 25-299 Overt proteinuria >=300 Unable to calculate urine microalbumin/creatinine ratio because urine microalbumin result is outside of reportable range. Marleni Zimmer [facility] URINE ORDERABLES Final R esult [facility] CLIA# [id number] [address] [place] [id number] from Last 3 Months or Most Recently Relevant to Health Maintenance [place] [address] [place] [address] MEDICAID [place] Care Teams Spa Associate Relationship Specialty Start Date End Date Leah Millard DO [address] [place] [phone] PCP - General Family Practice 10/05/18
--- OUTSIDE RECORDS SUMMARY | 2025-06-01 09:50 | XMS_ITS | Encounter Summary ---
Author Organization [facility] Address [address] [place] [address] Care Team Providers Care Lav Crewman Name Role Phone Leah Millard DO Primary Care Provider +1- [phone] Encounter Details Date Type Department Care Team (Latest Contact Info) Description 03/06/2003 Outpatient Historical [facility] [address] 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
--- OUTSIDE RECORDS SUMMARY | 2025-06-01 09:50 | XMS_ITS | Encounter Summary ---
Author Organization [facility] Address [address] [place] [address] Care Team Providers Care Popcorn Attendant Name Role Phone Leah Millard DO Primary Care Provider +1- [phone] Encounter Details Date Type Department Care Team (Late Contact Info) Description 04/03/2025 Results Follow-Up [facility] [address] [place] [address] December, [facility] [address] [place] [address] URINE CULTURE Social History Tobacco [...] on file Legal Sex Female 6:02 AM DISPLAY TRIMMER Gender Identity Not on file Sexual Orientation Not on file documented as of this encounter Plan of Treatment Upcoming Encounters Date Type Department Care Team (Late st Contact Info) Description 06/29/2025 4:20 PM CDT Office Visit [facility] [address] [place] [address] Leah Millard DO [address] [facility] [place] [phone] 08/30/2025 2:40 PM DISPLAY TRIMMER Office Visit [facility] [address] [facility] [place] [phone] Leah Millard, DO [address] [place] [address] 11/28/2025 10:40 AM CDT Office Visit [facility] [address] [facility] [place] [address] Leah Millard, DO [address] [place] [address] documented as of this encounter Visit Diagnoses Diagnosis Recurrent UTI- Primary Urinary tract infection, site not specified documented in this encounter Additional Health Concerns Assessment Noted Time PHQ-9 Depression Total Score: 2 10/11/19 25 12:26 PM DISPLAY TRIMMER documented as of this encounter Care Teams Popcorn Attendant Relationship Specialty Start Date End Date Leah Millard DO [address] [place] [phone] PCP - General Family Practice 10/05/18 documented as of this encounter
[2025-06-01 09:57] VITALS: BP 139/75; PULSE 73; TEMP 36.7; O2SAT 96; BMI 40.5
--- NOTE | 2025-06-01 10:13 | ED_ITS ---
HPI - Recheck/Abnormal Lab/Rx General: Chief Complaint: Recheck/Abnormal Lab/Rx Stated Complaint[facility] Time Seen by Provider: 06/01/25 09:46 History of Present Illness: 64-year-old female presents emergency ro om to have a midline removed. She had recently been hospitalized and ended extended IV antibiotics she completed the last dose this morning was directed to the ER to have her midline pulled. She has not had any complications or problems she has no fever no other concerns. Related Data Home Medications ?Medication ?Instructions ?Recorded ?Confirmed albuterol sulfate 90 mcg/actuation 2 puff inhalation Q 6H PRN 10/04/19 05/22/25 aerosol inhaler Respiratory Distress atorvastatin 80 mg tablet 80 mg PO BEDTIME 10/04/19 cyanocobalamin (vitamin B-12) 1,000 mcg PO DAILY 10/0405/22/25 1,000 mcg capsule cholecalciferol (vitamin D3) 25 25 mcg PO DAILY 05/22/25 mcg (1,000 unit) capsule oxycodone 10 mg tablet 10 mg PO TID PRN Pain 05/22/25 amlodipine 2.5 mg tablet 2.5 mg PO BEDTIME 05/22/25 0 05/22/25 aripiprazole 15 mg tablet 15 mg PO DAILY 05/22/2505/08 cetirizine 10 mg tablet (Zyrtec) 10 mg PO DAILY 05/22/25 clobetasol 0.05 % topical cream 1 applic topical PRN P RN pscoriasis 05/22/25 05/22/25 insulin regular hum U-500 conc 500 See Rx Instructions .Route 05/22/25 05/22/25 unit/mL(3 mL) subcut pen (Humulin .COMPLEX PRN high bl ood sugar R U-500 (Conc) Insulin Kwikpen) lidocaine 5 % topical patch 1 - 3 patch topical DAILY PRN Pain 05/22/25 05/22/25 metoprolol tartrate 50 mg tablet 50 mg PO BID 05/22/25 05/22/25 mirabegron 25 mg tablet,extended 25 mg PO DAILY 05/22/25 release 24 hr (Myrbetriq) mupirocin 2 % topical ointment 1 applic topical DAILY PRN redness 05/22/25 05/22/25 ondansetron 4 mg disintegrating 4 mg PO Q6H PRN Nausea 05/22/25 05/22/25 tablet oxygen-air delivery systems 05/22/25 05/22/25 pregabalin 100 mg capsule 100 mg PO BID 05/22/2505/22 trazodone 150 mg tablet 225 mg PO BEDTIME 05/22/25 0 05/22/25 vilazodone 40 mg tablet 40 mg PO DAILY 05/22/2505/08 Previous Rx's ?Medication ?Instructions ?Recorded WALKER #1 ea 10/04/20 aspirin 81 mg tablet,delayed 162 mg (2 x 81 mg) PO ELANA LY #60 11/03/20 release tabs pantoprazole 40 mg tablet,delayed 40 mg PO BID #60 tab s 11/03/20 release (Protonix) spironolactone 25 mg tablet 25 mg PO DAILY #30 tabs blood sugar diagnostic #200 ea 08/23/21 blood-glucose meter #1 ea 08/23/21 blood-glucose,elementary school tutor,cont #1 ea 10/07/23 (Dexcom G7 Drill Runner Helper) tirzepatide 15 mg/0.5 mL 15 mg (0.5 mL) SUBCUT Q7D #2 mL 12/23/23 subcutaneous pen injector (Eric[employer]) blood-glucose sensor (Dexcom G7 #9 ea 02/11/24 Sensor device) Allergies Allergy/AdvReac Type Severity Reaction Status Date / Time clindamycin Allergy Intermediate rash/nausea Verified 06/01/25 10:04 cephalexin (From Keflex) Allergy RASH,FEVER Verified 06/01/25 10:04 clonazepam (From Klonopin) Allergy SEIZURES Verified 06/01/25 10:04 doxycycline Allergy CONVULSIONS Verified 06/01/25 10:04 glyburide Allergy HIVES Verified 06/01/25 10:04 iodine Allergy ALGY-Wheezi Verified 06/01/25 10:04 ng Penicillins Allergy CONVULSIONS Verified 06/01/25 10:04 piperacillin (From Zosyn) Allergy ADR-Itching Verified 06/01/25 10:04 Sulfa (Sulfonamide Allergy RASH Verified 06/01/25 10:04 Antibiotics) tazobactam (From Zosyn) Allergy ADR-Itching Verified 06/01/25 10:04 tramadol (From Ultram) Allergy HIVES Verified 06/01/25 10:04 hydroxyzine Allergy unknown Uncoded 06/01/25 10:04 PFSH ED PFSH: Medical History Chronic cystitis Multiple sclerosis Diagnosed in 2014 Internal carotid artery stenosis Chronic pain History of colon cancer COPD (chronic obstructive pulmonary disease) Hyperlipidemia Insulin dependent type 2 diabetes mellitus Cardiac arrest Hypertension Patella fracture Incontinence Recurrent urinary tract infection Bilateral kidney stones Calcium urolithiasis Carpal tunnel syndrome of left wrist Surgical History Hx of detached retina repair History of tonsillectomy S/P extracorporeal shock wave therapy LEFT URETERAL STENT PLACEMENT History of appendectomy History of cholecystectomy Hx of adenoidectomy History of colon resection COLON CANCER Family History Father Parkinson disease Mother Parkinson disease Other CAD (coronary artery disease) Social History Smoking and tobacco/nicotine status: former use of tobacco/nicotine Alcohol intake: never Substance/Drug Use: never Adopted: No Caregiver/support person: No Lives independently: No Household members: spouse Marital status: Current occupational status: disabled Current gender identity: Female Physical Exam Extremity: OTHER: Examination of the PICC line site there is no evidence of redness inflammation no induration no drainage no signs of infection Course Vital Signs: Vital signs: Vital Signs Temperature 98.1 F 06/01/25 09:57 Pulse Rate 87 06/01/25 10:30 Blood Pressure 139/78 06/01/25 10:30 Pulse Oximetry 98 06/01/25 10:30 Oxygen Delivery Me thod Room Air 06/01/25 09:57 MDM - Recheck/Abnormal Lab/Rx Medical Decision Making PICC line removed wound looks good will discharge patient home follow-up as previously recommended at the time of discharge from the hospital Medical Records I reviewed the patient's medical records. No radiology studies performed this visit Discharge Plan Discharge Patient Disposition: Home Clinical Impression: PIC line (peripherally inserted central catheter) removal Condition: Stable Prescriptions: No Action cyanocobalamin (vitamin B-12) 1,000 mcg capsule 1,000 mcg PO DAILY albuterol sulfate 90 mcg/actuation HFA aerosol inhaler 2 puff INHALATION Q6H PRN (Reason: Respiratory Distress) atorvastatin 80 mg tablet 80 mg PO BEDTIME (DME) WALKER See Rx Instructions .Route .MEDSUPPLY Qty: 1 0RF Rx Instructions: As directed cholecalciferol (vitamin D3) 25 mcg (1,000 unit) capsule 25 mcg PO DAILY oxycodone 10 mg tablet 10 mg PO TID PRN (Reason: Pain) Mounjaro 15 mg/0.5 mL pen injector 15 mg SUBCUT Q7D Qty: 2 1RF (DME) blood sugar diagnostic Strip See Rx Instructions .Route Qty: 200 3RF Rx Instructions: As directed ([facility] blood-glucose meter Kit See Rx Instructions .Route Qty: 1 0RF Rx Instructions: Check BS twice a day. ([facility] Dexcom G7 Drill Runner Helper Misc See Rx Instructions .Route Qty: 1 0RF Rx Instructions: As directed ([facility]) Dexcom G7 Sensor Device See Rx Instructions .ROUTE .MEDSUPPLY Qty: 9 1RF Rx Instructions: Change every 10days aspirin 81 mg Tablet,Delayed Release (Dr/Ec) 162 mg PO DAILY Qty: 60 0RF spironolactone 25 mg Tablet 25 mg PO DAILY Qty: 30 0RF pantoprazole [Protonix] 40 mg tablet,delayed release (DR/EC) 40 mg PO BID Qty: 60 0RF cetirizine [Zyrtec] 10 mg Tablet 10 mg PO DAILY clobetasol 0.05 % cream 1 applic TOPICAL PRN PRN (Reason: pscoriasis) amlodipine 2.5 mg tablet 2.5 mg PO BEDTIME trazodone 150 mg tablet 225 mg PO BEDTIME lidocaine 5 % adhesive patch,medicated 1 - 3 patch topical DAILY PRN (Reason: Pain) metoprolol tartrate 50 mg tablet 50 mg PO BID mupirocin 2 % Ointment 1 applic TOPICAL DAILY PRN (Reason: redness) ondansetron 4 mg tablet,disintegrating 4 mg PO Q6H PRN (Reason: Nausea) (DME) oxygen-air delivery systems Device MISCELLANEOUS aripiprazole 15 mg tablet 15 mg PO DAILY pregabalin 100 mg capsule 100 mg PO BID vilazodone 40 mg tablet 40 mg PO DAILY mirabegron [Myrbetriq] 25 mg tablet extended release 24 hr 25 mg PO DAILY Humulin R U-500 (Conc) Kwikpen 500 unit/mL (3 mL) insulin pen See Rx Instructions .ROUTE .COMPLEX PRN (Reason: high blood sugar) Rx Instructions: INJECT 320 UNITS SUBCUTANEOUSLY EVERY DAY IN THE MORNING, 320 UNITS WITH LUNCH AND 250 UNITS IN THE EVENING Discharge Orders: Discharge ED (Routine); Ordered 06/01/25 Ordered By: David Domingo Referrals: Leah Millard DO [Primary Care Provider, Family Practice] Discharge Diet: Usual diet Discharge Activity: Increase activity as tolerated Patient Instructions: Opioid Safety, Pain Management, Patient Portal & Dione Instructions Activity Restrictions/Additional Instructions: Thank you for choosing [facility] for your healthcare needs today. It is very important that you follow up as instructed or that you return to the Emergency Department should you have concerns or if your condition changes or worsens in any way. Emergency department visits are focused on emergent conditions, in some cases you may require further evaluation on an outpatient basis. Your midline was removed in the emergency room today. Keep wound bandaged until completely healed you can apply [id number] topical antibiotic ointment to the wound until healed. Follow-up as previously directed at the time you are discharged from the hospital (Please note that included in your discharge packet is information concerning opioid safety and pain management. This information is given to all patients were discharged from the ER regardless of their discharge diagnosis or the me dicines they usually take or are prescribed.) Print Language: Jamaican Coding Level of Care Code ED Editor In Chief for Alphonso Valdes
[2025-06-01 10:30] VITALS: BP 139/78; PULSE 87; O2SAT 98
== END 2025-06-01 10:32 | disposition home or self-care (01) ==
PROVIDERS: Emergency Provider Family Medicine; PCP Family Medicine
DX: Z45.2 Encounter for adjustment and management of vascular access device (principal); Z79.82 Long term (current) use of aspirin; Z87.891 Personal history of nicotine dependence; E78.5 Hyperlipidemia, unspecified; J44.9 Chronic obstructive pulmonary disease, unspecified; E11.9 Type 2 diabetes mellitus without complications; I10 Essential (primary) hypertension; Z85.038 Personal history of other malignant neoplasm of large intestine
CPT/HCPCS: 99281

== ENCOUNTER 2025-06-30 20:00 | Observation (INO) | payer OTHER, MEDICAID, SELFPAY ==
--- OUTSIDE RECORDS SUMMARY | 2025-06-29 16:20 | XMS_ITS | Encounter Summary ---
Author Organization [facility] Address [address] [place] [address] Care Team Providers Care Public Relations Counselor Name Role Phone Leah Millard DO Primary Care Provider [phone] Reason for Visit * Reason Comments Chronic Conditions Coordination Encounter Details Date Type Department Care Team (Late st Contact Info) Description 06/29/2025 4:20 PM CDT Office Visit [facility] [place] [address] [place] [address] Leah Millard DO [address] [place] [address] Need for influenza vaccination (Primary Dx); Recurrent UTI Social History Tobacco Use Types Packs/Day Years [...] on file Legal Sex Female 6:02 AM COMPOSITE ENGINEER Gender Identity Not on file Sexual Orientation Not on file documented as of this encounter Last Filed Vital Signs Vital Sign Reading Time Taken Comments Blood Pressure 128/68 06/29/2025 4:20 PM CDT Pulse 78 06/29/2025 4:20 PM CDT Temperature 36.4 C (97.5 F) 06/29/2025 4:20 PM CDT Respiratory Rate - - Oxygen Saturation 92% 06/29/2025 4:20 PM CDT Inhaled Oxygen Concentration - - Weight 111.8 kg (246 lb 8 oz) 06/29/2025 4:20 PM CDT Height 167.6 cm (5' 6 ) 06/29/2025 4:20 PM CDT s tated Body Mass Index 39.79 06/29/2025 4:20 PM CDT documented in this encounter Plan of Treatment Upcoming Encounters Date Type Department Care Team (Late st Contact Info) Description 07/26/2025 4:00 PM COMPOSITE ENGINEER Office Visit [facility] [address] [place] [address] Leah Millard, DO [address] [place] [address] 08/30/2025 2:40 PM COMPOSITE ENGINEER Office Visit [facility] [address] [place] [address] Leah Millard, DO [address] [place] [address] 11/28/2025 10:40 AM CDT Office Visit [facility] [address] [place] [facility] [place] [address] Leah Millard, DO [address] [place] [facility] [place] [address] Pending Results Name Type Priority Associated Diagnoses Date /Time URINE CULTURE Microbiology Routine Recurrent UTI 06/29/2025 5:02 PM CDT Scheduled Orders Name Type Priority Associated Diagnoses Orde r Schedule URINE CULTURE Microbiology Routine Recurrent UTI Expected: 06/29/2025, Expires: 06/29/2026 documented as of this encounter Procedures Procedure Name Priority Date/Time Associated Diagnosis Comments POC URINALYSIS DIPSTICK AUTOMATED Routine 06/29/2025 4:20 PM CDT Recurrent UTI documented in this encounter Results * (ABNORMAL) POC URINALYSIS DIPSTICK AUTOMATED (06/29/2025 4:20 PM CDT) COLOR UA POC Yellow Pale to Dark Yellow [facility] CLARITY UA POC Cloudy(A) Clear, Other [facility] GLUCOSE UA POC Negative Negative, Normal [facility] BILIRUBIN UA POC Negative Negative [facility] KETONES UA POC Negative Negative [facility] SPECIFIC GRAVITY UA POC 1.020 1.000 - 1.030 [facility] BLOOD UA POC 2+(A) Negative [facility] PH UA POC 6.0 5.0 - 8.0 [facility] PROTEIN UA POC 3+(A) Negative [facility] UROBILINOGEN UA POC 0.2 <2.0 mg/dL [facility] NITRITE UA POC Positive(A) Negative [facility] LEUKOCYTE ESTERASE UA POC 3+(A) Negative [facility] KIT LOT NUMBER POC [phone] [facility] KIT EXP DATE POC 03/13/2026 [facility] Urine 06/29/2025 4:20 PM CDT us Leah Millard DO POINT OF CARE TESTING Final Result [facility] CLIA# [id number] [address] [place] [address] documented in this encounter Visit Diagnoses Diagnosis Need for influenza vaccination- Primary Need for prophylactic vaccination and inoculation against influenza Recurrent UTI Urinary tract infection, site not specified documented in this encounter Administered Medications Inactive Administered Medications - up to 3 most recent administrations Medication Order MAR Action Action Date Dose Rate Site cefTRIAXone (ROCEPHIN) vial 1,000 mg 1,000 mg, IM, ONE TIME ONLY, 1 dose, On Amber 06/29/25 at 1700, Routine, Antibiotic Indication: Urinary Tract Infection(UTI) / InfectionIndications:R ecurrent UTI Given 06/29/2025 5:20 PM CDT 1,000 mg Left Upper Outer Quadrant documented in this encounter Additional Health Concerns Assessment Noted Time PHQ-9 Depression Total Score: 2 10/11/19 12:26 PM COMPOSITE ENGINEER documented as of this encounter Care Teams Public Relations Counselor Relationship Specialty Start Date End Date Leah Millard DO [address] [place] [address] PCP - General Family Practice 10/05/18 documented as of this encounter
[2025-06-30 19:48] VITALS: BP 103/68; PULSE 106; RESP 15; TEMP 37.6; O2SAT 95
--- OUTSIDE RECORDS SUMMARY | 2025-06-30 20:08 | XMS_ITS | Clinical Summary ---
Author Organization [facility] Address [address] [facility] [place] [address] Care Team Providers Care Marketing Finance Manager Name Role Phone Aminata Millardorah Anne [facility] Primary Care Provider [phone] Allergies Active Allergy Reactions Criticality Noted Date [...] Other reaction(s): Hives Sulfasalazine Hives High 08/29/2015 Tazobactam Itching Low 06/01/2025 tingling around mouth Tramadol Hives High 10/05/2018 Medications cholecalciferol, Vitamin D3, (VITAMIN D3) 25 mcg (1,000 unit) Capsule Take 1,000 Units by mouth daily. Active vilazodone (VIIBRYD) 40 mg Tablet Take 40 mg by mouth daily. 023 Active docusate sodium (COLACE) 100 mg capsuleIndications :Slow transit constipation Take 2 Capsules (200 mg) by mouth 2 times daily. 180 Capsule 4 023 Active Blood-Glucose Meter,Continuous (Dexcom G7 Skein Bleacher) Use to test blood sugars continuously. She has to do multiple shots of insulin daily and hard to control 1 Each 023 Active power wheelchairIndicati ons:Chronic midline low back pain with right-sided sciatica,Type 2 diabetes mellitus with stage 3a chronic kidney disease, with long-term current use of insulin,Essential hypertension,Essen tial tremor,Atheroscler osis of navajo coronary artery of navajo heart without angina pectoris,Multiple sclerosis,History of CVA with residual deficit,Chronic respiratory failure with hypoxia and hypercapnia,Chroni c obstructive pulmonary disease, unspecified COPD type (CMS/HCC),History of non-ST elevation myocardial infarction (NSTEMI) Face to Face completed within 6 months: yes Length of Need: 99 months 1 Each 023 Active mupirocin (BACTROBAN) 2 % OintmentIndication s:Cellulitis of lower extremity, unspecified laterality,Insect bite of right lower extremity, initial encounter Apply to affected area daily. 15 Gram 1 023 Active albuterol (PROVENTIL,VENTOLI N) 2.5 mg /3 mL (0.083 %) Solution for NebulizationIndica tions:Chronic obstructive pulmonary disease, unspecified COPD type (CMS/HCC),Chronic respiratory failure with hypoxia and hypercapnia Take 3 mL (2.5 mg) by inhalation every 6 hours as needed for Shortness of Breath or Wheezing. Dispense box of 25 3 mL 1 023 Active budesonide-formote roL (SYMBICORT) 160-4.5 mcg/actuation HFA Aerosol InhalerIndications :Chronic obstructive pulmonary disease, unspecified COPD type (CMS/HCC),Chronic respiratory failure with hypoxia and hypercapnia Take 2 Puffs by inhalation 2 times daily. 1 Gram 6 023 Active traZODone (DESYREL) 150 mg tablet TAKE 1 TO 2 TABLETS BY MOUTH AT BEDTIME NEEDED FOR INSOMNIA 023 Active ALPRAZolam (Xanax) 0.5 mg tabletIndications: Situational anxiety Take 1 Tablet (0.5 mg) by mouth 1 time daily as needed for Anxiety. 30 Tablet 023 Active meclizine (ANTIVERT) 25 mg tabletIndications: Dizziness Take 1 Tablet (25 mg) by mouth 3 times daily as needed for Dizziness. 30 Tablet 2 024 Active aspirin (MAHNAZ CHEWABLE) 81 mg Tablet, Chewable Take 81 mg by mouth daily. Active rimegepant (Nurtec ODT) 75 mg Tablet, Rapid Dissolve Take 1 Tablet (75 mg) by mouth 1 time daily as needed for Other (See Comment) (migraine). 27 Tablet 4 024 Active pantoprazole (PROTONIX) 40 mg Tablet, Delayed Release (E.C.) Take 1 tablet by mouth twice daily 180 Tablet 4 024 Active HumuLIN-R U-500, Conc, Kwikpen 500 unit/mL (3 mL) penIndications:Typ e 2 diabetes mellitus with stage 3a chronic kidney disease, with long-term current use of insulin Inject 250 Units by subcutaneous injection 3 times daily. 30 mL 6 024 Active albuterol sulfate HFA 90 mcg/actuation aerosol inhalerIndications :Chronic obstructive pulmonary disease, unspecified COPD type (CMS/HCC),Chronic respiratory failure with hypoxia and hypercapnia Take 2 Puffs by inhalation every 6 hours as needed for Shortness of Breath. 8.5 Gram 6 024 Active metoprolol tartrate (LOPRESSOR) 50 mg tablet Take 1 tablet by mouth twice daily 180 Tablet 3 025 Active tirzepatide (Mounjaro) 15 mg/0.5 mL Pen Injector Use 15mg SQ every 7 days 3 mL 025 Active atorvastatin (LIPITOR) 80 mg tabletIndications: Mixed hyperlipidemia Take 1 tablet by mouth once daily 100 Tablet 3 025 Active cetirizine (ZyrTEC) 10 mg tabletIndications: Environmental and seasonal allergies Take 1 Tablet (10 mg) by mouth daily. 90 Tablet 3 025 Active pregabalin (LYRICA) 100 mg Capsule Take 1 Capsule (100 mg) by mouth 2 times daily. 60 Capsule 5 025 Active portable oxygenIndications: Panlobular emphysema,Chronic respiratory failure with hypoxia and hypercapnia Face to Face completed within 30 days: yes Length of Need: 99 months By: Nasal Cannula Continuously at 3 L/min. 1 Each 025 Active ARIPiprazole (ABILIFY) 15 mg tablet Take 15 mg by mouth daily. Active ondansetron (ZOFRAN ODT) 4 mg Tablet, Rapid Dissolve Take 1 Tablet (4 mg) by mouth every 6 hours as needed for Nausea/Emesis. Dissolve tablet on top of tongue, then swallow with saliva. 30 Tablet 6 025 Active amLODIPine (NORVASC) 2.5 mg tablet Take 1 Tablet (2.5 mg) by mouth daily. 90 Tablet 4 025 Active clobetasoL (TEMOVATE) 0.05 % CreamIndications:P laque psoriasis APPLY CREAM TOPICALLY TO AFFECTED AREA TWICE DAILY 45 Gram 3 025 Active spironolactone (ALDACTONE) 25 mg tabletIndications: Essential hypertension Take 1 Tablet (25 mg) by mouth daily. 100 Tablet 3 025 Active Blood-Glucose Sensor (Banyan Branchcom G7 Sensor) Device USE DIRECTED AND CHANGE EVERY 10 DAYS 3 Each 025 Active lidocaine (LIDODERM) 5 % Adhesive Patch, Medicated USE 1 TO 3 PATCHES EXTERNALLY TO AFFECTED AREA EVERY 24 HOURS 90 Patch 2 025 Active oxyCODONE (ROXICODONE) 10 mg tabletIndications: Chronic midline low back pain with right-sided sciatica Take 1 Tablet (10 mg) by mouth 3 times daily as needed for Pain, Moderate. Max Daily Amount: 30 mg 90 Tablet 025 Active ketoconazole (NIZORAL) 2 % Shampoo Use 10 mL to wash/shampoo 120 mL 025 Active fluconazole (DIFLUCAN) 100 mg tablet Take 1 Tablet (100 mg) by mouth daily for 3 days. 3 Tablet 1 025 2024 Active oxyBUTYnin (DITROPAN) 5 mg tablet Take 1 Tablet (5 mg) by mouth daily at bedtime. 30 Tablet 2 025 2024 Discontinued mirabegron (MYRBETRIQ) 25 mg Extended Release 24 hour tabletIndications: OAB (overactive bladder) Take 1 Tablet (25 mg) by mouth daily. 30 Tablet 2 025 2024 Discontinued nitrofurantoin (MACROBID) 100 mg capsuleIndications :Recurrent UTI Take 1 Capsule (100 mg) by mouth daily. 30 Capsule 4 025 2024 Discontinued Myrbetriq 25 mg Extended Release 24 hour tabletIndications: OAB (overactive bladder) Take 1 tablet by mouth once daily 100 Tablet 3 025 2024 Discontinued fosfomycin tromethamine (MONUROL) 3 gram Packet Take 3 Grams by mouth one time only for 1 dose. 3 Gram 2 025 2024 Hospital, Clinic, or Other Facility Administered Medication Ordered Dose Route Frequency Start Date End Date Status cefTRIAXone (ROCEPHIN) vial 1,000 mgIndications:Recurrent UTI 1000 mg IM ONE TIME ONLY 06/29/2025 06/29/2025 Ended Active Problems Problem Noted Date Diagnosed Date [...] cancer 05/29/2015 Diabetes mellitus 05/29/2015 Atherosclerosis of navajo co ronary artery of navajo heart without angina pectoris 05/29/2015 Resolved Problems Problem Noted Date Diagnosed Date Resolved Date Stable angina 11/02/2019 01/01/2020 Tobacco use 11/02/2019 01/19/2021 [place] (myocardial infarction) 04/09/2016 0 11/02/2019 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 [address] [place] [address] Leah Millard DO Need for influenza vaccination (Primary Dx); Recurrent UTI 06/21/[address] [facility] [address] [place] [address] [place], December, TECHNOLOGY SALES REPRESENTATIVE OAB (overactive bladder) 06/12/[address] [facility] [address] [place] [address] Leah Millard DO 06/02/[address] [facility] [address] [place] [address] Leah Millard DO Recurrent UTI (Primary Dx) 06/02/2025 Results Follow-Up [facility] [address] [place] [address] Leah Millard DO POC URINALYSIS DIPSTICK AUTOMATED 06/02/[address] [facility] [address] [place] [address] Leah Millard DO 05/31/2025 9:20 AM CDT Office Visit [facility] [address] [place] [address] Leah Millard DO Multiple sclerosis (Primary Dx); Recurrent UTI; Acute cystitis without hematuria; Essential hypertension; Atherosclerosis of navajo coronary artery of navajo heart without angina pectoris; Chronic respiratory failure with hypoxia and hypercapnia ([facility]); Mixed hyperlipidemia; History of non-ST elevation myocardial infarction (NSTEMI); Generalized anxiety disorder; UTI symptoms; Severe obesity (BMI 35.0-39.9) with comorbidity ([facility]); Obstructive sleep apnea syndrome; Type 2 diabetes mellitus with diabetic polyneuropathy, with long-term current use of insulin ([facility]); Abnormality of gait and mobility; OAB (overactive bladder); Chronic midline low back pain with right-sided sciatica; Degenerative disc disease, cervical; Bilateral deafness; Essential tremor; History of colon cancer; History of kidney stones; Primary insomnia 05/27/[address] [facility] [address] [place] [address] Leah Millard DO Chronic midline low back pain with right-sided sciatica 05/23/2025 External Device Data ST[facility] ABSTRACTION Provider, Abstract 05/22/2025 Orders Only [facility] [address] [place] [id number] Provider, Abstract 05/16/2025 External Device Data [place] ABSTRACTION Provider, Abstract 05/16/2025 External Device Data [place] ABSTRACTION Provider, Abstract 05/04/[address] [facility] [address] [place] [address] Gaxioladecember, TECHNOLOGY SALES REPRESENTATIVE Recurrent UTI 05/04/[address] [facility] [address] [place] [address] Leah Millard, DO 05/02/2025 Medication Prior Auth Encounter [facility] [address] [place] [address] Karen Rodrigues 05/01/[address] [facility] [address] [place] [address] Leah Millard, DO Medication Question; Medication Authorization; Medication Assistance 04/19/2025 External Device Data [place] ABSTRACTION Provider, Abstract 04/18/[address] [facility] [address] [place] [address] Leah Millard, DO 04/16/[address] [facility] [address] [place] [address] Leah Millard, DO 04/05/[address] [facility] [address] [place] [address] Leah Millard, DO 04/04/2025 External Device Data [place] ABSTRACTION Provider, Abstract 04/03/2025 Results Follow-Up [facility] [address] [place] [address] December, TECHNOLOGY SALES REPRESENTATIVE URINE CULTURE 03/30/2025 12:00 PM CDT Office Visit [facility] [address] [place] [address] Gaxiola, December, TECHNOLOGY SALES REPRESENTATIVE Acute cystitis without hematuria (Primary Dx); Skin tear of hand without complication, initial encounter; Screening mammogram, encounter for; OAB (overactive bladder) 03/30/2025 [facility] [address] [place] [address] eLah Millard DO Chronic midline low back pain [...] Max Freyermuth Heart Disease Brother 2 Cj Everettmuth Heart Disease Brother 3 Martin Frekarenmuth Cancer Father Rob Keenanyermuth Colon Cancer Father Rob Freyermuth Heart Disease Father Rob Keenanyermuth Hypertension Father Rob Keenanyermuth Other Father Rob Keenanyermuth Parkinson di sease Depression Mother Margi Gunter Mental illness Mother Margi Gunter Other Mother Margi Gunter Parkison disease Colon Cancer Other SELF Relation Name Status Comments Brother 1 Max Freyermuth Alive Brother 2 Cj Freyermuth Brother 3 Martin Freyermuth Father Rob Everettmuth Mother Margi Gunter Alive Other SELF Alive [...] on file Legal Sex Female 6:02 AM DENTAL APPLIANCE REPAIRER Gender Identity Not on file Sexual Orientation Not on file Last Filed Vital Signs Vital Sign Reading Time Taken Comments Blood Pressure 128/68 06/29/2025 4:20 PM CDT Pulse 78 06/29/2025 4:20 PM CDT Temperature 36.4 C (97.5 F) 06/29/2025 4:20 PM CDT Respiratory Rate 18 05/31/2025 9:19 AM CDT Oxygen Saturation 92% 06/29/2025 4:20 PM CDT Inhaled Oxygen Concentration - - Weight 111.8 kg (246 lb 8 oz) 06/29/2025 4:20 PM CDT Height 167.6 cm (5' 6 ) 06/29/2025 4:20 PM CDT s tated Body Mass Index 39.79 06/29/2025 4:20 PM CDT Plan of Treatment Upcoming Encounters Date Type Department Care Team (Late st Contact Info) Description 07/26/2025 4:00 PM DENTAL APPLIANCE REPAIRER Office Visit [facility] [address] [place] [address] Leah Millard, DO [address] [place] [address] 08/30/2025 2:40 PM DENTAL APPLIANCE REPAIRER Office Visit [facility] [address] [place] [facility] [place] [address] Leah Millard, DO [address] [place] [facility] [place] [place] [address] 11/28/2025 10:40 AM CDT Office Visit [facility] [address] [place] [phone] [place], Leah Anne, DO [address] [place] [facility] [place] [phone] Health Maintenance Due Date Last Done Comments DTAP/TDAP/TD VACCINES (1 - Tdap) 1978 Lung Cancer Screening 2009 RSV VACCINE (60+ or ) (1 - Risk 50-74 years 1-dose series) 2009 PNEUMOCOCCAL VACCINE 50+ YEA RS (3 of 3 - PCV20 or PCV21) 12/28/2023 12/27/2018, 04/09/2016 ZOSTER VACCINE (3 of 3) 02/17/2024 12/23/2023, 06/30 OSTEOPOROSIS SCREENING 2024 BREAST CANCER SCREENING 03/23/2025 03/23/20 24, 01/05/2019, 01/05/2019 INFLUENZA VACCINE (#1) 2025 , 06/04/2023, 06/03/2022, Additional history exists COVID-19 Vaccine (4 - 2024-2 6 season) 2025 08/13/2021, 02/04/2021, 01/07/2021 Traditional Medicare (ACO) A nnual Wellness Visit 10/12/2025 10/11/2024 DIABETES MICROALBUMIN ANNUAL SCREEN 11/08/2025 11/08/2024, 03/02/2024, 10/05/2018 DIABETES HBA1C Q 6 MONTHS 11/28/20252024, 10/11/2024, 05/25/2024, Additional history exists DIABETES ANNUAL RETINAL EXAM 12/20/202504/2025, 07/06/2024, 01/22/2021 DIABETES ANNUAL FOOT EXAM 05/31/20262024, 12/05/2021, 12/12/2020, Additional history exists LDL CHOLESTEROL ANNUAL 05/31/2026 5, 10/11/2024, 05/25/2024, Additional history exists COLORECTAL SCREENING Discontinued 04/04/2020 Colorectal Cancer Screening Discontinued [place]) Preventative Visit/Annual Wellness Visit Completed 10/11/2024 FIT-DNA Q 3 years Discontinued FIT/FOBT Q 1 year Discontinued Flex Sig/CT Colonography Q 5 years Discontinued Procedures Procedure Name Priority Date/Time Associated Diagnosis Comments POC URINALYSIS DIPSTICK AUTOMATED Routine 06/29/2025 4:20 PM CDT Recurrent UTI URINE CULTURE Routine 06/12/2025 11:34 AM CDT Recurrent UTI POC URINALYSIS DIPSTICK AUTOMATED Routine 06/12/2025 11:10 AM CDT Recurrent UTI CBC WITH DIFFERENTIAL Routine 05/31/2025 10:39 AM CDT Recurrent UTI Acute cystitis without hematuria Essential hypertension Atherosclerosis of navajo coronary artery of navajo heart without angina pectoris Chronic respiratory failure [...] cystitis without hematuria Essential hypertension Atherosclerosis of navajo coronary artery of navajo heart without angina pectoris Chronic respiratory failure [...] cystitis without hematuria Essential hypertension Atherosclerosis of navajo coronary artery of navajo heart without angina pectoris Chronic respiratory failure with hypoxia and hypercapnia (CMS/HCC) Mixed hyperlipidemia History of non-ST elevation myocardial infarction (NSTEMI) Generalized anxiety disorder UTI symptoms Severe obesity (BMI 35.0-39.9) with comorbidity (CMS/HCC) Obstructive sleep apnea syndrome Type 2 diabetes mellitus with diabetic polyneuropathy, with long-term current use of insulin (CMS/[facility]) LIPID PANEL Routine 05/31/2025 10:39 AM CDT Recurrent UTI Acute cystitis without hematuria Essential hypertension Atherosclerosis of navajo coronary artery of navajo heart without angina pectoris Chronic respiratory failure with hypoxia and hypercapnia (CMS/HCC) Mixed hyperlipidemia History of non-ST elevation myocardial infarction (NSTEMI) Generalized anxiety disorder UTI symptoms Severe obesity (BMI 35.0-39.9) with comorbidity (CMS/HCC) Obstructive sleep apnea syndrome Type 2 diabetes mellitus with diabetic polyneuropathy, with long-term current use of insulin ([facility]) HEMOGLOBIN A1C Routine 05/31/2025 10:39 AM CDT Recurrent UTI Acute cystitis without hematuria Essential hypertension Atherosclerosis of navajo coronary artery of navajo heart without angina pectoris Chronic respiratory failure with hypoxia and hypercapnia (CMS/HCC) Mixed hyperlipidemia History of non-ST elevation myocardial infarction (NSTEMI) Generalized anxiety disorder UTI symptoms Severe obesity (BMI 35.0-39.9) with comorbidity (CMS/HCC) Obstructive sleep apnea syndrome Type 2 diabetes mellitus with diabetic polyneuropathy, with long-term current use of insulin ([facility]) POC URINALYSIS DIPSTICK AUTOMATED Routine 05/31/2025 10:36 AM CDT Recurrent UTI Acute cystitis without hematuria Essential hypertension Atherosclerosis of [place]ajo coronary artery of navajo heart without angina pectoris Chronic respiratory failure with hypoxia and hypercapnia ([facility]/HCC) Mixed hyperlipidemia History of non-ST elevation myocardial infarction (NSTEMI) Generalized anxiety disorder UTI symptoms Severe obesity (BMI 35.0-39.9) with comorbidity (CMS/HCC) Obstructive sleep apnea syndrome URINE CULTURE Routine 05/31/2025 10:33 AM CDT Recurrent UTI COMPREHENSIVE METABOLIC PANEL Routine 05/21/2025 12:50 PM CDT URINE CULTURE Routine 03/30/2025 12:38 PM CDT Acute cystitis without hematuria HM DIABETES EYE EXAM Routine 12/20/2024 10:14 AM CDT MICROALBUMIN/CREATININ E RATIO, RANDOM UR Routine 11/08/2024 2:52 PM DENTAL APPLIANCE REPAIRER Type 2 diabetes mellitus with stage 3a chronic kidney disease, with long-term current use of insulin ([facility]) MAMMO 3D BON SCREEN BILAT W OR WO CAD Routine 03/23/2024 9:51 AM CDT Screening mammogram, encounter for ENDOSCOPY, COLON, SCREENING 04/04/2020 12:00 AM CDT DIABETES FOOT EXAM 12/27/2018 12:00 AM CDT from Last 3 Months or Most Recently Relevant to Health Maintenance Results * (ABNORMAL) POC URINALYSIS DIPSTICK AUTOMATED (06/29/2025 4:20 PM CDT) Only the most recent of3 resultswithin the time period is included. COLOR UA POC Yellow Pale to Dark Yellow [facility] CLARITY UA POC Cloudy(A) Clear, Other [facility] GLUCOSE UA POC Negative Negative, Normal [facility] BILIRUBIN UA POC Negative Negative [facility] KETONES UA POC Negative Negative [facility] SPECIFIC GRAVITY UA POC 1.020 1.000 - 1.030 [facility] BLOOD UA POC 2+(A) Negative [facility] PH UA POC 6.0 5.0 - 8.0 [facility] IC [facility] PROTEIN UA POC 3+(A) Negative [facility] UROBILINOGEN UA POC 0.2 <2.0 mg/dL [facility] NITRITE UA POC Positive(A) Negative [facility] LEUKOCYTE ESTERASE UA POC 3+(A) Negative [facility] KIT LOT NUMBER POC [phone] [facility] KIT EXP DATE POC 03/13/2026 [facility] Urine 06/29/2025 4:20 PM CDT Leah Millard DO POINT OF CARE TESTING Final Result [facility] CLIA# [id number] [address] [place] [address] * URINE CULTURE (06/12/2025 11:34 AM CDT) Only the most recent of3 resultswithin the time period is included. URINE CULTURE SEE NOTE [facility] Comment: CULTURE, URINE, ROUTINE Micro Number: [id number] Test Status: Final Specimen Source: Urine, clean catch Specimen Quality: Adequate Result: Mixed genital diego isolated. These superficial bacteria are not indicative of a urinary tract infection. No further organism identification is warranted on this specimen. If clinically indicated, recollect clean-catch, mid-stream urine and transfer immediately to Urine Culture Transport Tube. Test Performed at: [facility] [id number] [place] [address] Funmi Medellin MD Urine URINE SPECIMEN OBTAINED BY CLEAN CATCH PROCEDURE / Unknown 06/12/2025 11:34 AM CDT 06/13/2025 2:56 AM CDT Leah Millard DO MICROBIOLOGY - GENERAL ORDE RABLES Final Result [facility] [phone] [facility] [address] [place] [address] * (ABNORMAL) CBC WITH DIFFERENTIAL (05/31/2025 10:39 [...] [facility] Comment: Test Performed at: [facility] [address] [place] [id number] Funmi Medellin MD Blood 05/31/2025 10:3 9 AM CDT 06/01/2025 2:39 AM CDT us Leah Millard DO HEMATOLOGY ORDERABLES Final Result [facility] [phone] [facility] [address] [place] [phone] * TSH (05/31/2025 10:39 AM CDT) TSH 0.68 0.40 - 4.50 mIU/L [facility] Comment: Test Performed at: [facility] [id number] [address] Funmi Medellin MD Blood 05/31/2025 10:3 9 AM CDT 06/01/2025 2:39 AM CDT Leah Anne SnellVenice DO CHEMISTRY ORDERABLES Final Result Performing Organization Address City/[facility]/ZIP Co de Phone Number [facility] [phone] [facility] [address] [address] [address] * (ABNORMAL) HEMOGLOBIN A1C (05/31/2025 10:39 AM CDT) HEMOGLOBIN A1C 6.5(H) <5.7 % [facility] Comment: For someone without known diabetes, [...] ESTIMATED AVERAGE GLUCOSE (MG/DL) 140 mg/dL [facility] ESTIMATED AVERAGE GLUCOSE (MMOL/L) 7.7 mmol/L [facility] Comment: Test Performed at: [facility] [address] [place] [address] Funmi Medellin MD Blood 05/31/2025 10:3 9 AM CDT 06/01/2025 2:39 AM CDT us Leah Millard DO CHEMISTRY ORDERABLES Final Result Performing Organization Address City/[facility]/ZIP Co de Phone Number [facility] [phone] [facility] [place] [address] * (ABNORMAL) LIPID PANEL (05/31/2025 10:39 AM CDT) CHOLESTEROL 113 <200 mg/dL [facility] HDL 28(L) > OR = 50 mg/dL [facility] TRIGLYCERIDE 215(H) <150 mg/dL [facility] Comment: If a non-fasting specimen was collected, consider repeat triglyceride testing on a fasting specimen if clinically indicated. Linda et al. J. of Clin. Lipidol. 2015;9:129-169. LDL CALCULATED 57 mg/dL (calc) [facility] Comment: Reference range: <100 Desirable range <100 mg/dL for primary prevention; <70 mg/dL for patients with CHD or diabetic patients with > or = 2 CHD risk factors. LDL-C is now calculated using the Kandace calculation, which is a validated novel method providing better accuracy than the Friedewald equation in the estimation of LDL-C. Jeffrey DODSON et al. BRIANNA. 2013;310(19): 6248-9365 (http://education.[employer]faq/PJO850) CHOL/HDL RATIO 4.0 <5.0 (calc) [facility] NON-HDL CHOLESTEROL 85 <130 mg/dL (calc) [facility] Comment: For patients with diabetes plus 1 major ASCVD risk factor, treating to a non-HDL-C goal of <100 mg/dL (LDL-C of <70 mg/dL) is considered a therapeutic option. Test Performed at: [facility] [id number] [place] [address] Funmi Medellin MD Blood 05/31/2025 10:3 9 AM CDT 06/01/2025 2:39 AM CDT us Leah Millard DO CHEMISTRY ORDERABLES Final Result [facility] [phone] [facility] [address] [place] [address] * (ABNORMAL) COMPREHENSIVE METABOLIC PANEL (05/31/2025 10:39 [...] [facility] Comment: Test Performed at: [facility] [address] [place] [address] Funmi Medellin MD Blood 05/31/2025 10:3 9 AM CDT 06/01/2025 2:39 AM CDT us Leah Millard DO CHEMISTRY ORDERABLES Final Result [facility] [phone] [facility] [address] [place] [address] * HM DIABETES EYE EXAM (12/20/2024 10:14 AM CDT) Abstract Provider HEALTH MAINTENANCE Edited Resu lt - Final * MICROALBUMIN/CREATININE RATIO, RANDOM UR (11/08/2024 2:52 PM DENTAL APPLIANCE REPAIRER) Creatinine, Urine 135 20 - 275 mg/dL [facility] MICROALBUMIN, URINE 0.7 See Note: mg/dL [facility] Comment: Reference Range: Reference Range Not established MICROALBUMIN/CREAT RATIO, UR 5 <30 mg/g creat [facility] Comment: The ADA defines abnormalities in albumin excretion as follows: Albuminuria Category Result (mg/g creatinine) Normal to Mildly increased <30 Moderately increased 30-299 Severely increased > OR = 300 The ADA recommends that at least two of three specimens collected within a 3-6 month period be abnormal before considering a patient to be within a diagnostic category. Test Performed at: [facility] [address] [place] [address] Funmi Medellin MD Urine URINE SPECIMEN OBTAINED BY CLEAN CATCH PROCEDURE / Unknown 11/08/2024 2:52 PM DENTAL APPLIANCE REPAIRER 11/09/2024 5:16 AM DENTAL APPLIANCE REPAIRER Leah Milladr DO URINE ORDERABLES Final Resu lt [facility] [phone] [facility] [address] [facility] [place] [address] * MAMMO 3D BON SCREEN BILAT W [...] masses, calcifications, or areas of architectural distortion. Raiviktoriaalisia Sharpe TECHNOLOGY SALES REPRESENTATIVE MAMMO ORDERABLES Final Res ult * ENDOSCOPY, COLON, SCREENING (04/04/2020 12:00 AM CDT) Sgf Scanning GI PROCEDURE ORDERABLES Final Re sult * HM DIABETES FOOT EXAM (12/27/2018 12:00 AM CDT) Marleni Zimmer TECHNOLOGY SALES REPRESENTATIVE HEALTH MAINTENANCE Final Result from Last 3 Months or Most Recently Relevant to Health Maintenance Insurance [place]ICAID [place] DUAL COMPLETE HMO DSNP [facility] [id number] Care Teams Marketing Finance Manager Relationship Specialty Start Date End Date Leah Millard DO [address] [place] [address] PCP - General Family Practice 10/05/18
--- OUTSIDE RECORDS SUMMARY | 2025-06-30 20:08 | XMS_ITS | Encounter Summary ---
Author Organization [facility] Address [address] [place] [address] Care Team Providers Care Material Preparation Worker Name Role Phone Leah Millard DO Primary Care Provider [phone] Encounter Details Date Type Department Care Team (Latest Contact Info) Description 03/06/2003 Outpatient Historical [facility] [address] [place] [address] AMBULANCE, [facility] NOS (Primary Dx) Social History Tobacco Use Types Packs/Day Years Used Date Smoking Tobacco: Never Assessed Comments Unknown Sex and Gender Information Value Date Recorded Sex Assigned at Not on file Legal Sex Female 4:46 AM TAX AGENT Gender Identity Not on file Sexual Orientation Not on file documented as of this encounter Plan of Treatment Not on file documented as of this encounter Visit Diagnoses Diagnosis Chest pain, unspecified- Primary documented in this encounter Care Teams Material Preparation Worker Relationship Specialty Start Date End Date eLah Millard DO [address] [place] [address] PCP - General Family Practice 10/05/18 documented as of this encounter
--- OUTSIDE RECORDS SUMMARY | 2025-06-30 20:08 | XMS_ITS | Clinical Summary ---
Author Organization [facility] Address [address] [place] [address] Care Team Providers Care Pipe Bending Machine Operator Name Role Phone Leah Millard Primary Care [...] hyperglycemia, with long-term current use of insulin Check blood sugars TID. Meter that is [...] for Blood Pressure. 30 Tablet 2 04/23/20 20 Active vilazodone (VIIBRYD) 40 mg Tablet Take [...] unspecified vessel or lesion type, unspecified whether [place] or transplanted heart Take 1 Tablet (30 mg) by mouth daily in the morning. 90 Tablet 3 08/13/20 20 Active cyanocobalamin 1,000 mcg TabletIndications: Vitamin B12 deficiency (non anemic) Take 1 Tablet (1,000 mcg) by mouth daily. 90 Tablet 3 08/13/20 20 Active montelukast (SINGULAIR) 10 mg tabletIndications: Chronic obstructive pulmonary disease, unspecified COPD type (CMS/HCC) Take 1 Tablet (10 mg) by mouth [...] by inhalation daily. 90 Capsule 4 08/13/20 Active shower chair DME EQUIPMENTIndicatio ns:Closed displaced comminuted fracture of left patella with routine healing, subsequent encounter by See Admin Instructions route daily. With slide to get on chair. 1 Each 08/13/20 Active ALPRAZolam (Xanax) 0.5 mg tabletIndications: Generalized anxiety disorder Take 1 Tablet (0.5 mg) by mouth 2 times daily as needed for Anxiety. 30 Tablet 10/09/19 21 Active Insulin [place], Disposable, 32 gauge x 5/16 NeedleIndications: Type 2 diabetes mellitus with other circulatory complication, with long-term current use of insulin Use with Soliqua pen once daily 100 [...] with long-term current use of insulin Inject 30 units SQ two times daily 15 mL 2 01/29/20 Active dapagliflozin (Farxiga) 10 mg TabletIndications: Elevated blood sugar,Type 2 diabetes mellitus with stage 3a chronic kidney disease, with long-term current use of insulin Take 1 Tablet (10 mg) by mouth daily. 30 Tablet 3 01/29/20 Active atorvastatin (LIPITOR) 40 mg tabletIndications: Mixed hyperlipidemia Take 1 Tablet (40 mg) by mouth daily. 90 Tablet 4 01/29/20 Active insulin lispro (HumaLOG KwikPen Insulin) 200 unit/mL pen syringeIndications :Type 2 diabetes mellitus with hyperglycemia, with long-term current use of insulin,Type 2 diabetes mellitus with other circulatory complication, with long-term current use of insulin Inject subcutaneous 3 times daily PRN (sliding [...] hyperglycemia, with long-term current use of insulin Take 1 Tablet (50 mg) by mouth [...] by mouth daily. 3 Tablet 1 03/03/20 Active Active Problems Problem Noted Date Diagnosed [...] Chronic obstructive pulmonary disease 05/29/2015 Atherosclerosis of [place] co ronary artery of [place] heart without angina pectoris 05/29/2015 Diabetes mellitus 05/29/2015 Resolved Problems Problem Noted Date Diagnosed Date Resolved Date Stable angina 11/02/2019 01/01/2020 Morbid obesity with body mas s index of 40.0-49.9 11/02/2019 11/08/2020 Tobacco use 11/02/2019 01/19/2021 ID (myocardial infarction) 04/09/2016 0 11/02/2019 Immunizations Immunization [...] on file Legal Sex Female 4:46 AM QUALITY ASSURANCE QA LAB ANALYST Gender Identity Not on file Sexual [...] 10/24/2020 HEMOGLOBIN A1C Routine 10/09/2020 12:19 PM QUALITY ASSURANCE QA LAB ANALYST Type 2 diabetes mellitus with other circulatory complication, with long-term current use of insulin ([facility]) MAMMO SCREEN BILAT W OR WO CAD Routine 01/05/2019 Screening for breast cancer HM DIABETES FOOT EXAM Routine 12/27/2018 MICROALBUMIN/CREATI NINE RATIO, RANDOM UR Routine 10/05/2018 1:32 PM QUALITY ASSURANCE QA LAB ANALYST Type 2 diabetes mellitus with hyperglycemia, with long-term current use of insulin ([facility]) from Last 3 Months or Most Recently [...] LAB * HEMOGLOBIN A1C (10/09/2020 12:19 PM QUALITY ASSURANCE QA LAB ANALYST) HEMOGLOBIN A1C 5.3 See Comment % 10/09/2020 8:27 PM QUALITY ASSURANCE QA LAB ANALYST [facility] EST. AVG GLUCOSE, A1C 105 mg/dL 10/09/2020 8:27 PM QUALITY ASSURANCE QA LAB ANALYST [facility] Blood Venipuncture / Unknown 10/09/2020 12:19 PM QUALITY ASSURANCE QA LAB ANALYST 10/09/2020 8:09 PM QUALITY ASSURANCE QA LAB ANALYST Narrative [facility] - 10/09/2020 8:27 PM QUALITY ASSURANCE QA LAB ANALYST HGB A1C INTERPRETATION NORMAL: <5.7% PRE-DIABETES: 5.7 - 6.4% DIABETES: 6.5% OR GREATER Falsely low A1C measurements can occur when: 1. Anemia and/or hemolytic anemia is present. 2. Hemoglobin variants present. 3. Renal failure. 4. Transfusion of blood product in the last 120 days. We recommend ordering a fructosamine test([id number]) to more accurately assess glycemic status if any of the above conditions are present. Leah Millard DO CHEMISTRY ORDERABLES Final Result [facility] CLIA# [id number] [address] [place] [address] * MAMMO SCREEN BILAT W OR WO CAD (01/05/2019) Anatomical Region Laterality Modality Breast Bilateral Mammography Marleni Zimmer [facility] MAMMO ORDERABLES Final R esult * HM DIABETES FOOT EXAM (12/27/2018) Marleni Zimmer [facility] HEALTH MAINTENANCE Final Result * (ABNORMAL) MICROALBUMIN/CREATININE RATIO, RANDOM UR (10/05/2018 1:32 PM QUALITY ASSURANCE QA LAB ANALYST) MICROALBUMIN, URINE <1.2 No Reference Range mg/dL 10/05/2018 9:36 PM [facility] CREATININE, URINE 20.2(L) 29.0 - 226.0 mg/dL 10/05/2018 9:36 PM [facility] Comment: Reference Range varies with fluid intake and diet. Urine URINE SPECIMEN OBTAINED BY CLEAN CATCH PROCEDURE / Unknown Collection / Unknown 10/05/2018 1:32 PM QUALITY ASSURANCE QA LAB ANALYST 10/05/2018 7:59 PM QUALITY ASSURANCE QA LAB ANALYST Narrative [facility] - 10/05/2018 9:36 PM QUALITY ASSURANCE QA LAB ANALYST Condition Microalbumin/Creat ratio Normal Males <17 Normal Females <25 Microalbuminuria Males 17-299 Microalbuminuria Females 25-299 Overt proteinuria >=300 Unable to calculate urine microalbumin/creatinine ratio because urine microalbumin result is outside of reportable range. Marleni Zimmer NARROW GAUGE OPERATOR URINE ORDERABLES Final R esult [facility] CLIA# [id number] [address] [place] [address] from Last 3 Months or Most Recently Relevant to Health Maintenance Insurance MEDICAID [place] Care Teams Pipe Bending Machine Operator Relationship Specialty Start Date End Date Leah Millard DO [address] [place] [address] PCP - General Family Practice 10/05/18
[2025-06-30 20:14] LABS: Hematocrit 39.4 % (36-47); Hemoglobin 12.50 g/dL (11.27-16.99); Mean Corpuscular HGB Conc 31.7 g/dL (30-55); Mean Corpuscular Hemoglobin 26.5 pg (27-33); Mean Corpuscular Volume 83.7 fl (85-98); Nucleated Red Blood Cells % 0 %; Platelet Count 279 10^3/cmm (157-399); Red Blood Count 4.71 10^6/uL (3.85-5.65); White Blood Count 24.49 10^3/uL (3.29-11.43)
--- NOTE | 2025-06-30 20:24 | ECG_ITS ---
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 Measurements Intervals [place] Rate: 88 P: 45 HI: 222 QRS: 32 QRSD: 79 T: 61 QT: 340 QTc: 413 Interpretive Statements SINUS RHYTHM WITH FIRST DEGREE AV BLOCK Compared to ECG 05/21/2025 20:17:44 No significant changes Electronically Signed On 07-01-2025 12:06:10 CDT by Cristiano Aceves M.D. [email or web address] [id number]
--- NOTE | 2025-06-30 20:24 | CTR_ITS ---
PROCEDURE INFORMATION: Exam: CT Abdomen And Pelvis Without Contrast Exam date and time: 06/30/2025 10:00 PM Age: 65 years old Clinical indication: Fever and nausea and other: Hematuria/dysuria; Prior surgery; Surgery date: 6+ months; Surgery type: Gb. Appy. Colon resection. Fever with nausea and dysuria/hematuria. Recent hospitalization for severe UTI. History of colon cancer. ; Additional info: Abd pain, dysuria/hematuria TECHNIQUE: Imaging protocol: Computed tomography of the abdomen and pelvis without contrast. Radiation optimization: All CT scans at this facility use at least one of these dose optimization techniques: automated exposure control; mA and/or kV adjustment per patient size (includes targeted exams where dose is matched to clinical indication); or iterative reconstruction. COMPARISON: CT kidney stone [id number] 05/21/2025 10:52 PM RADIATION DOSE METRICS: Total DLP (mGy-cm): 1094.8 FINDINGS: Lungs: Hypoventilatory changes present dependent nose no consolidation Coronary arteries: Coronary artery calcifications present Liver: Unremarkable. No mass. Gallbladder and biliary ducts: Unremarkable. No calcified stones. No ductal dilation. Pancreas: Unremarkable. No ductal dilation. Spleen: Unremarkable. No splenomegaly. Adrenal glands: Normal. No mass. Kidneys and ureters: There is demonstration of a 1.8 cm nonobstructing right midpole caliceal calculi with smaller calculi in the lower pole collecting system left kidney measures 6 mm Stomach and bowel: Bowel demonstrates no obstruction Appendix: The appendix was not visualized no inflammatory changes present right lower quadrant. Intraperitoneal space: There is no intra abdominopelvic free air or free fluid present Vasculature: Unremarkable. No abdominal aortic aneurysm. Lymph nodes: Unremarkable. No enlarged lymph nodes. Urinary bladder: There is distended thickened bladder of nonspecific etiology correlate to exclude infection Reproductive: Unremarkable as visualized. Bones/joints: Unremarkable. No acute fracture. Soft tissues: Unremarkable. CT/CT abdomen pelvis wo con [id number] IMPRESSION: Nonspecific thickening urinary bladder correlate with urinalysis to exclude infection Bilateral nonobstructing caliceal renal calculi.
--- NOTE | 2025-06-30 20:25 | XRR_ITS ---
PROCEDURE INFORMATION: Exam: XR Chest Exam date and time: 06/30/2025 9:32 PM Age: 65 years old Clinical indication: Shortness of breath; Prior surgery; Surgery date: 6+ months; Surgery type: Gb; C/O SOB TECHNIQUE: Imaging protocol: Radiologic exam of the chest. Views: 1 view. COMPARISON: CR (CHEST, ) 05/21/2025 7:12 PM FINDINGS: Lungs: There are findings of platelike opacities right middle lobe most suggestive of subsegmental atelectasis. Pleural spaces: No pneumothorax Heart/Mediastinum: Unremarkable. No cardiomegaly. Bones/joints: Unremarkable. XR/XR chest 1V portable [id number] IMPRESSION: Findings suggest right middle lobe subsegmental atelectasis, correlate and follow-up as indicated
--- NOTE | 2025-06-30 20:28 | W.ED.GENADLT ---
Documented by User: ADELIA Mo 06/30/25 22:32 HPI - General Adult General: Chief complaint: General Medical Stated complaint: DYSURIA Time Seen by Provider: 06/30/25 20:14 Source: patient and old records reviewed Mode of arrival: ambulatory Limitations: no limitations History of Present Illness: Patient is a 65-year-old female presents emerged department with fevers and continued urinary symptoms. She was seen here in the emergency department and admitted to the hospital for urosepsis at the beginning of May, she has been on fosfomycin since and states that just recently, over the past couple of days she has been running high temperatures again and has had worsening dysuria and hematuria. She states that she has been increasingly weak with malaise, short of breath, and has felt nauseous with abdominal pain. No vomiting or diarrhea. At this time she is tachycardic, elevated temperature 99.6. She uses oxygen as needed, has required 2 L of oxygen here to maintain above 90% SpO2. She did have a PICC line placed as well from prior hospitalization, however was subsequently seen in the emergency department for PICC line removal on 01 June. She is lethargic at this time. MD complaint: Fever, dysuria/hematuria Onset (ago): day(s) Severity: similar to prior episodes Associated symptoms: Reports dyspnea, malaise and nausea; Deny chest pain, diaphoresis, headache(s), rash, palpitations or vomiting Treatments prior to arrival: other (Antibiotic) Related Data Home Medications ?Medication ?Instructions ?Recorded ?Confirmed albuterol sulfate 90 mcg/actuation 2 puff inhalation Q6H PRN 10/04/19 05/22/25 aerosol inhaler Respiratory Distress atorvastatin 80 mg tablet 80 mg PO BEDTIME 10/04/19 05/22/25 cyanocobalamin (vitamin B-12) 1,000 mcg PO DAILY 10/04/19 05/22/25 1,000 mcg capsule cholecalciferol (vitamin D3) 25 25 mcg PO DAILY 09/26/21 05/22/25 mcg (1,000 unit) capsule oxycodone 10 mg tablet 10 mg PO TID PRN Pain 05/26/23 05/22/25 amlodipine 2.5 mg tablet 2.5 mg PO BEDTIME 05/22/25 05/22/25 aripiprazole 15 mg tablet 15 mg PO DAILY 05/22/25 05/22/25 cetirizine 10 mg tablet (Zyrtec) 10 mg PO DAILY 05/22/25 05/22/25 clobetasol 0.05 % topical cream 1 applic topical PRN PRN pscoriasis 05/22/25 05/22/25 insulin regular hum U-500 conc 500 See Rx Instructions .Route 05/22/25 05/22/25 unit/mL(3 mL) subcut pen (Humulin .COMPLEX PRN high blood sugar R U-500 (Conc) Insulin Kwikpen) lidocaine 5 % topical patch 1 - 3 patch topical DAILY PRN Pain 05/22/25 05/22/25 metoprolol tartrate 50 mg tablet 50 mg PO BID 05/22/25 05/22/25 mirabegron 25 mg tablet,extended 25 mg PO DAILY 05/22/25 05/22/25 release 24 hr (Myrbetriq) mupirocin 2 % topical ointment 1 applic topical DAILY PRN redness 05/22/25 05/22/25 ondansetron 4 mg disintegrating 4 mg PO Q6H PRN Nausea 05/22/25 05/22/25 tablet oxygen-air delivery systems 05/22/25 05/22/25 pregabalin 100 mg capsule 100 mg PO BID 05/22/25 05/22/25 trazodone 150 mg tablet 225 mg PO BEDTIME 05/22/25 05/22/25 vilazodone 40 mg tablet 40 mg PO DAILY 05/22/25 05/22/25 Previous Rx's ?Medication ?Instructions ?Recorded WALKER #1 ea 10/04/20 aspirin 81 mg tablet,delayed 162 mg (2 x 81 mg) PO DAILY #60 11/03/20 release tabs pantoprazole 40 mg tablet,delayed 40 mg PO BID #60 tabs 11/03/20 release (Protonix) spironolactone 25 mg tablet 25 mg PO DAILY #30 tabs 11/03/20 blood sugar diagnostic #200 ea 08/23/21 blood-glucose meter #1 ea 08/23/21 blood-glucose,stove fitter,cont #1 ea 10/07/23 (Dexcom G[employer] Teacher) tirzepatide 15 mg/0.5 mL 15 mg (0.5 mL) SUBCUT Q7D #2 mL 12/23/23 subcutaneous pen injector (Mounjaro) blood-glucose sensor (Dexcom G7 #9 ea 02/11/24 Sensor device) Allergies Allergy/AdvReac Type Severity Reaction Status Date / Time clindamycin Allergy Intermediate rash/nausea Verified 06/01/25 10:04 cephalexin (From Keflex) Allergy RASH,FEVER Verified 06/01/25 10:04 clonazepam (From Klonopin) Allergy SEIZURES Verified 06/01/25 10:04 doxycycline Allergy CONVULSIONS Verified 06/01/25 10:04 glyburide Allergy HIVES Verified 06/01/25 10:04 iodine Allergy ALGY-Wheezi Verified 06/01/25 10:04 ng Penicillins Allergy CONVULSIONS Verified 06/01/25 10:04 piperacillin (From Zosyn) Allergy ADR-Itching Verified 06/01/25 10:04 Sulfa (Sulfonamide Allergy RASH Verified 06/01/25 10:04 Antibiotics) tazobactam (From Zosyn) Allergy ADR-Itching Verified 06/01/25 10:04 tramadol (From Ultram) Allergy HIVES Verified 06/01/25 10:04 hydroxyzine Allergy unknown Uncoded 06/01/25 10:04 Review of Systems General: Reports: 10 or more systems reviewed and unremarkable except in HPI and below Const: Reports: fever(s), fatigue and malaise; Denies: chills, change in appetite, change in weight or diaphoresis ENMT: Denies: throat pain or hoarseness Card: Denies: chest pain, palpitations or lightheadedness Resp: Reports: dyspnea; Denies: productive cough or wheezing GI: Reports: abdominal pain and nausea; Denies: vomiting, diarrhea, constipation, bloating, change in stool character or hematochezia : Reports: dysuria and hematuria; Denies: flank pain, difficulty voiding, urinary frequency or urinary urgency Musc: Denies: neck pain or back pain Skin/Breast: Denies: rash or new lesions Neuro: Denies: headache(s) or dizziness PFSH ED PFSH: Medical History (Updated 06/30/25 @ 22:24 by ADELIA Mo) Chronic cystitis Multiple sclerosis Diagnosed in 2014 Internal carotid artery stenosis Chronic pain History of colon cancer COPD (chronic obstructive pulmonary disease) Hyperlipidemia Insulin dependent type 2 diabetes mellitus Cardiac arrest Hypertension Patella fracture Incontinence Recurrent urinary tract infection Bilateral kidney stones Calcium urolithiasis Carpal tunnel syndrome of left wrist Surgical History Hx of detached retina repair History of tonsillectomy S/P extracorporeal shock wave therapy LEFT URETERAL STENT PLACEMENT History of appendectomy History of cholecystectomy Hx of adenoidectomy History of colon resection COLON CANCER Family History Father Parkinson disease Mother Parkinson disease Other CAD (coronary artery disease) Social History Smoking and tobacco/nicotine status: former use of tobacco/nicotine Alcohol intake: never Substance/Drug Use: never Adopted: No Caregiver/support person: No Lives independently: No Household members: spouse Marital status: Current occupational status: disabled Current gender identity: Female Physical Exam Const: COMMON NORMALS: patient oriented x3, no limitations, alert and well nourished GENERAL APPEARANCE: cooperative NUTRITIONAL APPEARANCE: obese morbidly obese ORIENTATION/CONSCIOUSNESS: Yes awake OTHER: Lethargic Neck/C-Spine: COMMON NORMALS: full ROM, supple and no meningeal signs Resp: COMMON NORMALS: normal respiratory effort, No retractions, No use of accessory muscles and clear to auscultation bilaterally AUSCULTATION: clear to auscultation bilaterally, no crackles, no rales, no rhonchi and no wheezes Cardio: COMMON NORMALS: regular rhythm, No gallops present (Cardio), No clicks present (Cardio), No murmurs present (Cardio), No rub (Cardio) and Peripheral pulses 2+ throughout RATE: tachycardic RHYTHM: regular rhythm PERIPHERAL PULSES: Peripheral pulses 2+ throughout GI: COMMON NORMALS: Normal to inspection, nondistended, normoactive bowel sounds present, Soft to palpation, No hepatosplenomegaly present and no masses AUSCULTATION: Yes normoactive bowel sounds PALPATION: Yes Soft to palpation, No Guarding due to palpation present (GI), No Rigid due to palpation and Yes No hepatosplenomegaly present RECTAL EXAM: deferred OTHER: Diffuse abdominal tenderness to palpation : COMMON NORMALS: Yes no CVA tenderness BLADDER/KIDNEY EXAM: Yes no CVA tenderness Back/Pelvis: COMMON NORMALS: no CVA tenderness Extremity: COMMON NORMALS: normal to inspection and full ROM Neuro: COMMON NORMALS: patient oriented x3, moves all extremities, no focal motor deficits and no sensory deficits noted SENSORIUM/ORIENTATION: Yes alert MENINGEAL SIGNS: Yes no meningeal signs Psych: COMMON NORMALS: mental status grossly normal, cooperative and speech normal SPEECH: Yes normal speech Skin: COMMON NORMALS: no rashes or lesions noted GENERAL SKIN EXAM: no rashes or lesions noted Course Vital Signs: Vital signs: Vital Signs Temperature 99.6 F 06/30/25 19:48 Pulse Rate 76 07/01/25 02:00 Respiratory Rate 18 06/30/25 22:21 Blood Pressure 120/60 07/01/25 03:47 Pulse Oximetry 96 07/01/25 03:48 Oxygen Delivery Me thod Nasal Cannula 07/01/25 03:48 Oxygen Flow Rate 3 07/01/25 03:48 MDM - General Adult Medical Decision Making This patient presented by ambulance for recurrent urinary symptoms, of note at the beginning of May was hospitalized for urosepsis. She notes similar symptoms, last few days has been febrile with chills, diffuse abdominal pain as well. On arrival she is normotensive but on the low end and mildly tachycardic, elevated temperature 99.6. She uses 2 L of oxygen as needed but has been requiring this recently. Chest x-ray showing right middle lobe subsegmental atelectasis, I had no appreciated adventitious lung sounds on exam. Urinalysis is showing significant UTI, her last culture was reviewed and finding that she was very susceptible to meropenem that improved her condition in the hospital. After blood cultures were obtained, she was subsequently started on meropenem and sepsis bolus of fluids. Significant leukocytosis of 25, though no lactic acidosis. ABG unremarkable. Kidney function appearing mildly elevated. Spoke to Dr. Morel, hospitalist, who accept the patient in the hospital for IV antibiotics. Informed patient of this plan, she agrees and all other questions and concerns addressed. Dr. Levine informed of patient's case will put in admit orders at this time. Lab Data 06/30/25 19:54 06/30/25 19:54 Radiology Impressions Abdomen/Pelvis CT 06/30/25 20:24 IMPRESSION: Nonspecific thickening urinary bladder correlate with urinalysis to exclude infection Bilateral nonobstructing caliceal renal calculi. Chest X-Ray 06/30/25 20:25 IMPRESSION: Findings suggest right middle lobe subsegmental atelectasis, correlate and follow-up as indicated Laboratory Results WBC 24.49 10^3/uL (3.29-11.43) H 06/30/25 19:54 RBC 4.71 10^6/uL (3.85-5.65) 06/30/25 19:54 Hgb 12.50 g/dL (11.27-16.99) 06/30/25 19:54 Hct 39.4 % (36-47) 06/30/25 19:54 MCV 83.7 fl (85-98) L 06/30/25 19:54 MCH 26.5 pg (27-33) L 06/30/25 19:54 MCHC 31.7 g/dL (30-55) 06/30/25 19:54 RDW 14.2 % (12.1-15.1) 06/30/25 19:54 Plt Count 279 10^3/cmm (157-399) 06/30/25 19:54 MPV 10.7 fL (7.4-10.4) H 06/30/25 19:54 Neut % (Auto) 82.7 % 06/30/25 19:54 Lymph % (Auto) 9.8 % 06/30/25 19:54 [place] % (Auto) 6.0 % 06/30/25 19:54 Eos % (Auto) 0.4 % 06/30/25 19:54 Baso % (Auto) 0.4 % 06/30/25 19:54 Neut # (Auto) 20.23 10^3/uL (1.8-7.7) H 06/30/25 19:54 Lymph # (Auto) 2.4 10^3/uL (0.8-4.8) 06/30/25 19:54 [place] # (Auto) 1.5 10^3/uL (0.2-0.9) H 06/30/25 19:54 Eos # (Auto) 0.1 10^3/uL (0.0-0.8) 06/30/25 19:54 Baso # (Auto) 0.1 10^3/uL (0.0-0.1) 06/30/25 19:54 Nucleated RBC % (auto) 0 % 06/30/25 19:54 Nucleated RBCs # 0.0 /100WBC 06/30/25 19:54 Specimen Type Arterial 06/30/25 21:20 Sample Site Brachial, right 06/30/25 21:20 ABG pH 7.41 (7.35-7.45) 06/30/25 21:20 ABG pCO2 45.1 mmHg (35-45) H 06/30/25 21:20 ABG pO2 72.6 mmHg (80.0-100.0) L 06/30/25 21:20 ABG PO2/FiO2 Ratio 259 06/30/25 21:20 ABG HCO3 28.3 mmol/L (22-26) H 06/30/25 21:20 ABG O2 Saturation 94.6 06/30/25 21:20 ABG Base Excess 3.0 mmol/L (-2.0-2.0) H 06/30/25 21:20 Abhi Test Pos 06/30/25 21:20 A-a O2 Gradient 9.1 mmHg (5-10) 06/30/25 21:20 Hematocrit 38.2 % (37-47) 06/30/25 21:20 Hgb O2 Saturation 92.5 % (95-100) L 06/30/25 21:20 Carboxyhemoglobin 1.3 %THgb (0.4-20.1) 06/30/25 21:20 Methemoglobin 0.9 % (0.4-1.5) 06/30/25 21:20 Total Hemoglobin 12.5 g/dL (12-16) 06/30/25 21:20 Sodium 139.0 mmol/L (131-143) 06/30/25 21:20 Potassium 4.0 mmol/L (3.5-5.0) 06/30/25 21:20 Glucose 148.0 mg/dL (70-115) H 06/30/25 21:20 Ionized Calcium 1.2 mmol/L (1.1-1.4) 06/30/25 21:20 O2 Delivery Device Nc 06/30/25 21:20 O2 Liters/Min 2.0 % 06/30/25 21:20 FiO2 28.0 % 06/30/25 21:20 Box Toe Buffer ID Bd 06/30/25 21:20 Sodium 136 mmol/L (136-145) 06/30/25 19:54 Potassium 4.5 mmol/L (3.5-5.1) 06/30/25 19:54 Chloride 97 mmol/L (98-107) L 06/30/25 19:54 Carbon Dioxide 26 mmol/L (22-29) 06/30/25 19:54 Anion Gap 17.5 (5-19) 06/30/25 19:54 BUN 14 mg/dL (8-23) 06/30/25 19:54 Creatinine 1.4 mg/dL (0.5-0.9) H 06/30/25 19:54 GFR Calculation 37.6 mL/min (90-130) L 06/30/25 19:54 Glucose 171 mg/dL (65-115) H 06/30/25 19:54 Calculated Osmolality 287 mOsm/kg (285-295) 06/30/25 19:54 Lactic Acid 1.7 mmol/L (0.5-2.2) 06/30/25 19:54 Calcium 9.1 mg/dL (8.5-10.5) 06/30/25 19:54 Total Bilirubin 1.1 mg/dL (0.15-1.2) 06/30/25 19:54 AST 18 U/L (0-32) 06/30/25 19:54 ALT 16 U/L (0-33) 06/30/25 19:54 Alkaline Phosphatase 189 U/L (35-105) H 06/30/25 19:54 Total Protein 7.6 g/dL (6.6-8.7) 06/30/25 19:54 Albumin 3.6 g/dL (3.5-5.2) 06/30/25 19:54 Globulin 4.0 g/dL (1.3-4.6) 06/30/25 19:54 Urine Color Yellow (Yellow) 06/30/25 21:07 Urine Appearance Turbid (CLEAR) A 06/30/25 21:07 Urine pH 5.5 (5-7) 06/30/25 21:07 Ur Specific [place] 1.017 (1.005-1.030) 06/30/25 21:07 Urine Protein 2+ (Negative) A 06/30/25 21:07 Urine Glucose (UA) Negative (Normal) 06/30/25 21:07 Urine Ketones Trace (Negative) 06/30/25 21:07 Urine Blood 2+ (Negative) A 06/30/25 21:07 Urine Nitrate Negative (Negative) 06/30/25 21:07 Urine Bilirubin Negative (Negative) 06/30/25 21:07 Urine Urobilinogen 1.0 mg/dL (Negative) 06/30/25 21:07 Ur Leukocyte Esterase 3+ (Negative) A 06/30/25 21:07 Urine RBC 3-5 /hpf (0-2) 06/30/25 21:07 Urine WBC >100 /hpf (0-5) H 06/30/25 21:07 Ur Squamous Epith Cells 11-20 /hpf (0-5) H 06/30/25 21:07 Amorphous Sediment Not Reportable 06/30/25 21:07 Urine Bacteria 2+ /hpf (NONE) H 06/30/25 21:07 Hyaline Casts 4.43 /lpf 06/30/25 21:07 Influenza A (PCR) Negative (Negative) 06/30/25 20:49 Influenza Type B (PCR) Negative (Negative) 06/30/25 20:49 RSV (PCR) Negative (Negative) 06/30/25 20:49 SARS-CoV-2 (PCR) Negative (Negative) 06/30/25 20:49 All radiology interpretation(s) finalized by discharge Discharge Plan Discharge Patient Disposition: Admitted As Inpatient Admit Provider: Stephen Morel Clinical Impression: Sepsis Qualifiers: Sepsis type: sepsis due to unspecified organism Sepsis acute organ dysfunction status: unspecified Qualified Code(s): A41.9 - Sepsis, unspecified organism UTI (urinary tract infection) Qualifiers: Urinary tract infection type: acute cystitis Hematuria presence: without hematuria Qualified Code(s): N30.00 - Acute cystitis without hematuria Condition: Stable Coding Level of Care Code ED Beverage Server for Chg Fwd Documented by User: Yuriy Levine MD 07/01/25 04:14 HPI - General Adult General: Chief complaint: General Medical Stated complaint: DYSURIA Time Seen by Provider: 06/30/25 20:14 Related Data Home Medications ?Medication ?Instructions ?Recorded ?Confirmed albuterol sulfate 90 mcg/actuation 2 puff inhalation Q6H PRN 10/04/19 05/22/25 aerosol inhaler Respiratory Distress atorvastatin 80 mg tablet 80 mg PO BEDTIME 10/04/19 05/22/25 cyanocobalamin (vitamin B-12) 1,000 mcg PO DAILY 10/04/19 05/22/25 1,000 mcg capsule cholecalciferol (vitamin D3) 25 25 mcg PO DAILY 09/26/21 05/22/25 mcg (1,000 unit) capsule oxycodone 10 mg tablet 10 mg PO TID PRN Pain 05/26/23 05/22/25 amlodipine 2.5 mg tablet 2.5 mg PO BEDTIME 05/22/25 05/22/25 aripiprazole 15 mg tablet 15 mg PO DAILY 05/22/25 05/22/25 cetirizine 10 mg tablet (Zyrtec) 10 mg PO DAILY 05/22/25 05/22/25 clobetasol 0.05 % topical cream 1 applic topical PRN PRN pscoriasis 05/22/25 05/22/25 insulin regular hum U-500 conc 500 See Rx Instructions .Route 05/22/25 05/22/25 unit/mL(3 mL) subcut pen (Humulin .COMPLEX PRN high blood sugar R U-500 (Conc) Insulin Kwikpen) lidocaine 5 % topical patch 1 - 3 patch topical DAILY PRN Pain 05/22/25 05/22/25 metoprolol tartrate 50 mg tablet 50 mg PO BID 05/22/25 05/22/25 mirabegron 25 mg tablet,extended 25 mg PO DAILY 05/22/25 05/22/25 release 24 hr (Myrbetriq) mupirocin 2 % topical ointment 1 applic topical DAILY PRN redness 05/22/25 05/22/25 ondansetron 4 mg disintegrating 4 mg PO Q6H PRN Nausea 05/22/25 05/22/25 tablet oxygen-air delivery systems 05/22/25 05/22/25 pregabalin 100 mg capsule 100 mg PO BID 05/22/25 05/22/25 trazodone 150 mg tablet 225 mg PO BEDTIME 05/22/25 05/22/25 vilazodone 40 mg tablet 40 mg PO DAILY 05/22/25 05/22/25 Previous Rx's ?Medication ?Instructions ?Recorded WALKER #1 ea 10/04/20 aspirin 81 mg tablet,delayed 162 mg (2 x 81 mg) PO DAILY #60 11/03/20 release tabs pantoprazole 40 mg tablet,delayed 40 mg PO BID #60 tabs 11/03/20 release (Protonix) spironolactone 25 mg tablet 25 mg PO DAILY #30 tabs 11/03/20 blood sugar diagnostic #200 ea 08/23/21 blood-glucose meter #1 ea 08/23/21 blood-glucose,stove fitter,cont #1 ea 10/07/23 (Dexcom G7 [employer] Teacher) tirzepatide 15 mg/0.5 mL 15 mg (0.5 mL) SUBCUT Q7D #2 mL 12/23/23 subcutaneous pen injector (Mounjaro) blood-glucose sensor (Dexcom G7 #9 ea 02/11/24 Sensor device) Allergies Allergy/AdvReac Type Severity Reaction Status Date / Time clindamycin Allergy Intermediate rash/nausea Verified 06/01/25 10:04 cephalexin (From Keflex) Allergy RASH,FEVER Verified 06/01/25 10:04 clonazepam (From Klonopin) Allergy SEIZURES Verified 06/01/25 10:04 doxycycline Allergy CONVULSIONS Verified 06/01/25 10:04 glyburide Allergy HIVES Verified 06/01/25 10:04 iodine Allergy ALGY-Wheezi Verified 06/01/25 10:04 ng Penicillins Allergy CONVULSIONS Verified 06/01/25 10:04 piperacillin (From Zosyn) Allergy ADR-Itching Verified 06/01/25 10:04 Sulfa (Sulfonamide Allergy RASH Verified 06/01/25 10:04 Antibiotics) tazobactam (From Zosyn) Allergy ADR-Itching Verified 06/01/25 10:04 tramadol (From Ultram) Allergy HIVES Verified 06/01/25 10:04 hydroxyzine Allergy unknown Uncoded 06/01/25 10:04 [facility] ED PFSH: Medical History (Updated 06/30/25 @ 22:24 by ADELIA Mo) Chronic cystitis Multiple sclerosis Diagnosed in 2015 Internal carotid artery stenosis Chronic pain History of colon cancer COPD (chronic obstructive pulmonary disease) Hyperlipidemia Insulin dependent type 2 diabetes mellitus Cardiac arrest Hypertension Patella fracture Incontinence Recurrent urinary tract infection Bilateral kidney stones Calcium urolithiasis Carpal tunnel syndrome of left wrist Surgical History Hx of detached retina repair History of tonsillectomy S/P extracorporeal shock wave therapy LEFT URETERAL STENT PLACEMENT History of appendectomy History of cholecystectomy Hx of adenoidectomy History of colon resection COLON CANCER Family History Father Parkinson disease Mother Parkinson disease Other CAD (coronary artery disease) Social History Smoking and tobacco/nicotine status: former use of tobacco/nicotine Alcohol intake: never Substance/Drug Use: never Adopted: No Caregiver/support person: No Lives independently: No Household members: spouse Marital status: Current occupational status: disabled Current gender identity: Female Course Vital Signs: Vital signs: Vital Signs Temperature 99.6 F 06/30/25 19:48 Pulse Rate 76 07/01/25 02:00 Respiratory Rate 18 06/30/25 22:21 Blood Pressure 120/60 07/01/25 03:47 Pulse Oximetry 96 07/01/25 03:48 Oxygen Delivery Me thod Nasal Cannula 07/01/25 03:48 Oxygen Flow Rate 3 07/01/25 03:48 MDM - General Adult Medical Decision Making This patient presented by ambulance for recurrent urinary symptoms, of note at the beginning of May was hospitalized for urosepsis. She notes similar symptoms, last few days has been febrile with chills, diffuse abdominal pain as well. On arrival she is normotensive but on the low end and mildly tachycardic, elevated temperature 99.6. She uses 2 L of oxygen as needed but has been requiring this recently. Chest x-ray showing right middle lobe subsegmental atelectasis, I had no appreciated adventitious lung sounds on exam. Urinalysis is showing significant UTI, her last culture was reviewed and finding that she was very susceptible to meropenem that improved her condition in the hospital. After blood cultures were obtained, she was subsequently started on meropenem and sepsis bolus of fluids. Significant leukocytosis of 25, though no lactic acidosis. ABG unremarkable. Kidney function appearing mildly elevated. Spoke to Dr. Morel, hospitalist, who accept the patient in the hospital for IV antibiotics. Informed patient of this plan, she agrees and all other questions and concerns addressed. Dr. Levine informed of patient's case will put in admit orders at this time. Discussed this patient with above midlevel did review patient's labs she does have an elevated white count along with acute cystitis. Patient was given IV fluids along with IV antibiotics patient was admitted to the hospitalist. Lab Data 06/30/25 19:54 06/30/25 19:54 Radiology Impressions Abdomen/Pelvis CT 06/30/25 20:24 IMPRESSION: Nonspecific thickening urinary bladder correlate with urinalysis to exclude infection Bilateral nonobstructing caliceal renal calculi. Chest X-Ray 06/30/25 20:25 IMPRESSION: Findings suggest right middle lobe subsegmental atelectasis, correlate and follow-up as indicated Laboratory Results WBC 24.49 10^3/uL (3.29-11.43) H 06/30/25 19:54 RBC 4.71 10^6/uL (3.85-5.65) 06/30/25 19:54 Hgb 12.50 g/dL (11.27-16.99) 06/30/25 19:54 Hct 39.4 % (36-47) 06/30/25 19:54 MCV 83.7 fl (85-98) L 06/30/25 19:54 MCH 26.5 pg (27-33) L 06/30/25 19:54 MCHC 31.7 g/dL (30-55) 06/30/25 19:54 RDW 14.2 % (12.1-15.1) 06/30/25 19:54 Plt Count 279 10^3/cmm (157-399) 06/30/25 19:54 MPV 10.7 fL (7.4-10.4) H 06/30/25 19:54 Neut % (Auto) 82.7 % 06/30/25 19:54 Lymph % (Auto) 9.8 % 06/30/25 19:54 [place] % (Auto) 6.0 % 06/30/25 19:54 Eos % (Auto) 0.4 % 06/30/25 19:54 Baso % (Auto) 0.4 % 06/30/25 19:54 Neut # (Auto) 20.23 10^3/uL (1.8-7.7) H 06/30/25 19:54 Lymph # (Auto) 2.4 10^3/uL (0.8-4.8) 06/30/25 19:54 [place] # (Auto) 1.5 10^3/uL (0.2-0.9) H 06/30/25 19:54 Eos # (Auto) 0.1 10^3/uL (0.0-0.8) 06/30/25 19:54 Baso # (Auto) 0.1 10^3/uL (0.0-0.1) 06/30/25 19:54 Nucleated RBC % (auto) 0 % 06/30/25 19:54 Nucleated RBCs # 0.0 /100WBC 06/30/25 19:54 Specimen Type Arterial 06/30/25 21:20 Sample Site Brachial, right 06/30/25 21:20 ABG pH 7.41 (7.35-7.45) 06/30/25 21:20 ABG pCO2 45.1 mmHg (35-45) H 06/30/25 21:20 ABG pO2 72.6 mmHg (80.0-100.0) L 06/30/25 21:20 ABG PO2/FiO2 Ratio 259 06/30/25 21:20 ABG HCO3 28.3 mmol/L (22-26) H 06/30/25 21:20 ABG O2 Saturation 94.6 06/30/25 21:20 ABG Base Excess 3.0 mmol/L (-2.0-2.0) H 06/30/25 21:20 Abhi Test Pos 06/30/25 21:20 A-a O2 Gradient 9.1 mmHg (5-10) 06/30/25 21:20 Hematocrit 38.2 % (37-47) 06/30/25 21:20 Hgb O2 Saturation 92.5 % (95-100) L 06/30/25 21:20 Carboxyhemoglobin 1.3 %THgb (0.4-20.1) 06/30/25 21:20 Methemoglobin 0.9 % (0.4-1.5) 06/30/25 21:20 Total Hemoglobin 12.5 g/dL (12-16) 06/30/25 21:20 Sodium 139.0 mmol/L (131-143) 06/30/25 21:20 Potassium 4.0 mmol/L (3.5-5.0) 06/30/25 21:20 Glucose 148.0 mg/dL (70-115) H 06/30/25 21:20 Ionized Calcium 1.2 mmol/L (1.1-1.4) 06/30/25 21:20 O2 Delivery Device Nc 06/30/25 21:20 O2 Liters/Min 2.0 % 06/30/25 21:20 FiO2 28.0 % 06/30/25 21:20 Box Toe Buffer ID Bd 06/30/25 21:20 Sodium 136 mmol/L (136-145) 06/30/25 19:54 Potassium 4.5 mmol/L (3.5-5.1) 06/30/25 19:54 Chloride 97 mmol/L (98-107) L 06/30/25 19:54 Carbon Dioxide 26 mmol/L (22-29) 06/30/25 19:54 Anion Gap 17.5 (5-19) 06/30/25 19:54 BUN 14 mg/dL (8-23) 06/30/25 19:54 Creatinine 1.4 mg/dL (0.5-0.9) H 06/30/25 19:54 GFR Calculation 37.6 mL/min (90-130) L 06/30/25 19:54 Glucose 171 mg/dL (65-115) H 06/30/25 19:54 Calculated Osmolality 287 mOsm/kg (285-295) 06/30/25 19:54 Lactic Acid 1.7 mmol/L (0.5-2.2) 06/30/25 19:54 Calcium 9.1 mg/dL (8.5-10.5) 06/30/25 19:54 Total Bilirubin 1.1 mg/dL (0.15-1.2) 06/30/25 19:54 AST 18 U/L (0-32) 06/30/25 19:54 ALT 16 U/L (0-33) 06/30/25 19:54 Alkaline Phosphatase 189 U/L (35-105) H 06/30/25 19:54 Total Protein 7.6 g/dL (6.6-8.7) 06/30/25 19:54 Albumin 3.6 g/dL (3.5-5.2) 06/30/25 19:54 Globulin 4.0 g/dL (1.3-4.6) 06/30/25 19:54 Urine Color Yellow (Yellow) 06/30/25 21:07 Urine Appearance Turbid (CLEAR) A 06/30/25 21:07 Urine pH 5.5 (5-7) 06/30/25 21:07 Ur Specific [place] 1.017 (1.005-1.030) 06/30/25 21:07 Urine Protein 2+ (Negative) A 06/30/25 21:07 Urine Glucose (UA) Negative (Normal) 06/30/25 21:07 Urine Ketones Trace (Negative) 06/30/25 21:07 Urine Blood 2+ (Negative) A 06/30/25 21:07 Urine Nitrate Negative (Negative) 06/30/25 21:07 Urine Bilirubin Negative (Negative) 06/30/25 21:07 Urine Urobilinogen 1.0 mg/dL (Negative) 06/30/25 21:07 Ur Leukocyte Esterase 3+ (Negative) A 06/30/25 21:07 Urine RBC 3-5 /hpf (0-2) 06/30/25 21:07 Urine WBC >100 /hpf (0-5) H 06/30/25 21:07 Ur Squamous Epith Cells 11-20 /hpf (0-5) H 06/30/25 21:07 Amorphous Sediment Not Reportable 06/30/25 21:07 Urine Bacteria 2+ /hpf (NONE) H 06/30/25 21:07 Hyaline Casts 4.43 /lpf 06/30/25 21:07 Influenza A (PCR) Negative (Negative) 06/30/25 20:49 Influenza Type B (PCR) Negative (Negative) 06/30/25 20:49 RSV (PCR) Negative (Negative) 06/30/25 20:49 SARS-CoV-2 (PCR) Negative (Negative) 06/30/25 20:49 Discharge Plan Discharge Patient Disposition: Admitted As Inpatient Admit Provider: Stephen Morel Clinical Impression: Sepsis Qualifiers: Sepsis type: sepsis due to unspecified organism Sepsis acute organ dysfunction status: unspecified Qualified Code(s): A41.9 - Sepsis, unspecified organism UTI (urinary tract infection) Qualifiers: Urinary tract infection type: acute cystitis Hematuria presence: without hematuria Qualified Code(s): N30.00 - Acute cystitis without hematuria Condition: Stable Coding Level of Care Code ED Beverage Server for Alphonso Valdes
[2025-06-30 20:53] VITALS: BP 121/71; PULSE 95; O2SAT 98
[2025-06-30 20:56] LABS: Lactic Sepsis W/Reflex 1.7 mmol/L (0.5-2.2)
[2025-06-30 20:57] LABS: Alanine Aminotransferase 16 U/L (0-33); Albumin Level 3.6 g/dL (3.5-5.2); Alkaline Phosphatase 189 U/L (35-105); Anion Gap 17.5 (5-19); Aspartate Amino Transferase 18 U/L (0-32); Blood Urea Nitrogen 14 mg/dL (8-23); Calcium 9.1 mg/dL (8.5-10.5); Carbon Dioxide 26 mmol/L (22-29); Chloride 97 mmol/L (98-107); Globulin 4.0 g/dL (1.3-4.6); Glucose 171 mg/dL (65-115); Osmolality Calculated 287 mOsm/kg (285-295); Potassium 4.5 mmol/L (3.5-5.1); Sodium 136 mmol/L (136-145); Total Protein 7.6 g/dL (6.6-8.7)
[2025-06-30 21:15] LABS: Creatinine Clr Calc Pharmacy 49.8275
[2025-06-30 21:19] LABS: Glucose Urine UA Negative (Normal); Nitrate Urine Negative (Negative); Specific Gravity, Urine 1.017 (1.005-1.030)
[2025-06-30 21:25] LABS: Add Urine Microscopic? YES
[2025-06-30 21:30] LABS: ABG PCO2 45.1 mmHg (35-45); ABG PH Result 7.41 (7.35-7.45); Alveolar-Arterial Oxygen Gradi 9.1 mmHg (5-10); Arterial Blood Gas Hematocrit 38.2 % (37-47); Blood Gas Allen Test Pos; Blood Gas LPM 2.0 %; Blood Gas Operator Identificat BD; Blood Gas Sample Site Brachial, right; Blood Gas Sample Type Arterial; Carboxyhemoglobin 1.3 %THgb (0.4-20.1); Glucose Level-ABG 148.0 mg/dL (70-115); HCO3 ABG 28.3 mmol/L (22-26); Ionized Calcium Level - ABG 1.2 mmol/L (1.1-1.4); Methemoglobin 0.9 % (0.4-1.5); Oxygen Saturation ABG 94.6; PO2 ABG 72.6 mmHg (80.0-100.0); PO2 FiO2 Ratio Arterial Blood 259; Potassium Level - ABG 4.0 mmol/L (3.5-5.0); Sodium Level - ABG 139.0 mmol/L (131-143)
[2025-06-30 21:57] LABS: Respiratory Syncytial Virus Ce NEGATIVE (Negative); SARS-CoV-2 PCR NEGATIVE (Negative)
[2025-06-30 22:02] LABS: UA Slide Review UA Slide Review Perf
[2025-06-30] MEDS: ondansetron 2 mg/ML SDV 2 mL 4 MG IVP (22:16)
[2025-06-30] MEDS: HYDROmorphone 0.5 MG/0.5 ML INJ 1 MG IVP (22:17)
[2025-06-30 22:21] VITALS: BP 119/59; PULSE 83; RESP 18; O2SAT 99
[2025-07-01] VITALS (21 sets, daily range): BP systolic 97–159; BP diastolic 53–92; PULSE 70–88; RESP 14–18; TEMP 37.1; O2SAT 91–100
--- NOTE | 2025-07-01 02:05 | PM.HP ---
Providers/Chief Complaint Admitting Physician: Stephen Morel MD Primary Care Provider: Leah Millard DO Chief Complaint: DYSURIA History of Present Illness As per the previous notes and the patient Melissa Kinney is a 65 year old female with past medical history of hypertension, diabetes, cardiac arrest, COPD, hyperlipidemia, history of colon cancer, chronic pain bilateral kidney stones, incontinence, internal carotid artery stenosis, presented with fever and chills to ER with feeling of suprapubic pressure-like sensation and dysuria. Of note the patient has been admitted 1 month ago due to UTI and completed her antibiotics. She was doing fine until 1 month till yesterday that she presented with urine fever and chills with suprapubic pressure-like sensation to ER .she was also nauseous for the last 1 to 2 days along with the symptoms of UTI. She did not report any lower leg swellings, chest pain, chest pressure, any joint swellings. rest of the review of systems is unremarkable. patient at baseline needs 2-3L NC at home and CPAP at night due to sleep apnea Review of Systems General: Reports: 10 or more systems reviewed and unremarkable except in HPI and below Medications/Allergies Home Medications ?Medication ?Instructions ?Recorded ?Confirmed ?Last Taken ?Type albuterol sulfate 90 mcg/actuation 2 puff inhalation Q6H PRN 10/04/19 05/22/25 09/20/20 History aerosol inhaler Respiratory Distress atorvastatin 80 mg tablet 80 mg PO BEDTIME 10/04/19 05/22/25 05/20/25 20:00 History cyanocobalamin (vitamin B-12) 1,000 mcg PO DAILY 10/04/19 05/22/25 05/21/25 08:00 History 1,000 mcg capsule WALKER #1 ea 10/04/20 05/22/25 Unknown Rx aspirin 81 mg tablet,delayed 162 mg (2 x 81 mg) PO DAILY #60 11/03/20 05/22/25 05/21/25 08:00 Rx release tabs pantoprazole 40 mg tablet,delayed 40 mg PO BID #60 tabs 11/03/20 05/22/25 05/21/25 08:00 Rx release (Protonix) spironolactone 25 mg tablet 25 mg PO DAILY #30 tabs 11/03/20 05/22/25 05/21/25 08:00 Rx blood sugar diagnostic #200 ea 08/23/21 05/22/25 Unknown Rx blood-glucose meter #1 ea 08/23/21 05/22/25 Unknown Rx cholecalciferol (vitamin D3) 25 25 mcg PO DAILY 09/26/21 05/22/25 05/21/25 08:00 History mcg (1,000 unit) capsule oxycodone 10 mg tablet 10 mg PO TID PRN Pain 05/26/23 05/22/25 05/21/25 08:00 History blood-glucose,cutter and edge trimmer,cont #1 ea 10/07/23 05/22/25 Unknown Rx (Dexcom G7 Career Services Director) tirzepatide 15 mg/0.5 mL 15 mg (0.5 mL) SUBCUT Q7D #2 mL 12/23/23 05/22/25 05/17/25 08:00 Rx subcutaneous pen injector (Shadi) blood-glucose sensor (Dexcom G7 #9 ea 02/11/24 05/22/25 Unknown Rx Sensor device) amlodipine 2.5 mg tablet 2.5 mg PO BEDTIME 05/22/25 05/22/25 05/20/25 20:00 History aripiprazole 15 mg tablet 15 mg PO DAILY 05/22/25 05/22/25 05/21/25 08:00 History cetirizine 10 mg tablet (Zyrtec) 10 mg PO DAILY 05/22/25 05/22/25 05/15/25 History clobetasol 0.05 % topical cream 1 applic topical PRN PRN pscoriasis 05/22/25 05/22/25 Unknown History insulin regular hum U-500 conc 500 See Rx Instructions .Route 05/22/25 05/22/25 Unknown History unit/mL(3 mL) subcut pen (Humulin .COMPLEX PRN high blood sugar R U-500 (Conc) Insulin Kwikpen) lidocaine 5 % topical patch 1 - 3 patch topical DAILY PRN Pain 05/22/25 05/22/25 05/21/25 08:00 History metoprolol tartrate 50 mg tablet 50 mg PO BID 05/22/25 05/22/25 05/21/25 08:00 History mirabegron 25 mg tablet,extended 25 mg PO DAILY 05/22/25 05/22/25 05/21/25 08:00 History release 24 hr (Myrbetriq) mupirocin 2 % topical ointment 1 applic topical DAILY PRN redness 05/22/25 05/22/25 Unknown History ondansetron 4 mg disintegrating 4 mg PO Q6H PRN Nausea 05/22/25 05/22/25 05/21/25 08:00 History tablet oxygen-air delivery systems 05/22/25 05/22/25 Unknown History pregabalin 100 mg capsule 100 mg PO BID 05/22/25 05/22/25 05/21/25 08:00 History trazodone 150 mg tablet 225 mg PO BEDTIME 05/22/25 05/22/25 05/20/25 20:00 History vilazodone 40 mg tablet 40 mg PO DAILY 05/22/25 05/22/25 05/21/25 08:00 History Allergies Allergy/AdvReac Type Severity Reaction Status Date / Time clindamycin Allergy Intermediate rash/nausea Verified 06/01/25 10:04 cephalexin (From Keflex) Allergy RASH,FEVER Verified 06/01/25 10:04 clonazepam (From Klonopin) Allergy SEIZURES Verified 06/01/25 10:04 doxycycline Allergy CONVULSIONS Verified 06/01/25 10:04 glyburide Allergy HIVES Verified 06/01/25 10:04 iodine Allergy ALGY-Wheezi Verified 06/01/25 10:04 ng Penicillins Allergy CONVULSIONS Verified 06/01/25 10:04 piperacillin (From Zosyn) Allergy ADR-Itching Verified 06/01/25 10:04 Sulfa (Sulfonamide Allergy RASH Verified 06/01/25 10:04 Antibiotics) tazobactam (From Zosyn) Allergy ADR-Itching Verified 06/01/25 10:04 tramadol (From Ultram) Allergy HIVES Verified 06/01/25 10:04 hydroxyzine Allergy unknown Uncoded 06/01/25 10:04 PFSH Acute PFSH: Medical History (Updated 06/30/25 @ 22:24 by ADELIA Mo) Chronic cystitis Multiple sclerosis Diagnosed in 2014 Internal carotid artery stenosis Chronic pain History of colon cancer COPD (chronic obstructive pulmonary disease) Hyperlipidemia Insulin dependent type 2 diabetes mellitus Cardiac arrest Hypertension Patella fracture Incontinence Recurrent urinary tract infection Bilateral kidney stones Calcium urolithiasis Carpal tunnel syndrome of left wrist Surgical History Hx of detached retina repair History of tonsillectomy S/P extracorporeal shock wave therapy LEFT URETERAL STENT PLACEMENT History of appendectomy History of cholecystectomy Hx of adenoidectomy History of colon resection COLON CANCER Family History Father Parkinson disease Mother Parkinson disease Other CAD (coronary artery disease) Social History Smoking and tobacco/nicotine status: former use of tobacco/nicotine Alcohol intake: never Substance/Drug Use: never Adopted: No Caregiver/support person: No Lives independently: No Household members: spouse Marital status: Current occupational status: disabled Current gender identity: Female Vitals/I&O/Wt Last Vital Signs Temp 99.6 F 06/30/25 19:48 Pulse 76 07/01/25 02:00 Resp 18 06/30/25 22:21 BP 153/73 07/01/25 02:00 Pulse Ox 98 07/01/25 00:29 O2 Del Method Nasal Cannula 07/01/25 00:29 O2 Flow Rate 2 07/01/25 00:29 Weight last 48 hrs Weight 110.677 kg Physical Exam Narrative: General: Alert and oriented, lying comfortably without any distress and on 2L NC which is her home O2. HEENT: Normocephalic, atraumatic, grossly unremarkable exam Cardio: normal rate rhythm, normal S1-S2 without any murmurs, rubs, or gallops and JVD normal Respiratory: normal vascular breathing on auscultation without any wheezes, stridor, rhonchi GI: Abdomen soft, mild tenderness at the suprapubic region, renal angle tenderness could not be elicited since the patient has chronic back pain, normoactive bowel sounds present all 4 quadrants, Neuro: intact cranial nerves motor and sensory and cerebellar/coordination function without any focal neurological deficit Behavior: Appropriate and cooperative Extremities: Adequate palpable pulses, mild trace edema. Data 06/30/25 19:54 06/30/25 19:54 Micro: Microbiology 06/30/25 21:12 Blood Culture - Preliminary Blood SPECIMEN COLLECTED 06/30/25 21:15 Blood Culture - Preliminary Blood SPECIMEN COLLECTED A&P Assessment and plan 1. UTI (urinary tract infection): Recurrent UTI, Follow-up blood culture and urine culture Possible history of ESBL, patient allergic to penicillins and sulfa antibiotics therefore started on meropenem based on renal functions Keep MAP above 65 Monitor intake and output Monitor renal functions 2. Sepsis: Leukocytosis with tachycardia at presentation associated with high-grade fever and chills. Fluid boluses given Lactate: 1.7 Continue broad-spectrum antibiotics meropenem and vancomycin, since the patient was recently admitted and carries high risk of MRSA as well. Follow blood cultures urine cultures and MRSA 3. Morbid obesity due to excess calories: Stable continue monitor 4. Bilateral kidney stones: Monitor intake and output Monitor renal functions 5. Hypertension: Patient on amlodipine, metoprolol as well, need reconciliation before initiation 6. Insulin dependent type 2 diabetes mellitus: Insulin sliding scale and monitor blood glucose 7. Hyperlipidemia: Patient at home on statins 80 mg and to continue after reconciliation 8. COPD (chronic obstructive pulmonary disease): DuoNebs as scheduled 6 hourly 9. CVA (cerebral vascular accident): Patient on aspirin 162 mg daily and is confirmed from the patient. To resume home dose, 10. CHF (congestive heart failure): Patient on medications, aspirin, metoprolol, spironolactone and to resume after reconciliation 11. Internal carotid artery stenosis: Resume aspirin and statin after reconciliation PDMP PDMP Reviewed: Not Reviewed Attestations Medical Necessity Statement*: Melissa Kinney's hospital stay will require greater than 2 midnights for management of urosepsis Time Spent in Patient Care: 16 - 35 minutes (>than 50% of time spent in counselling and/or direct pt care on unit). Other Attestations: Patient condition has been discussed at length with the patient/family, I have independently reviewed the chart labs imaging/diagnostics/EKG. the goals of care and code status with the patient/family/NOK/legal technical account representative, and documented accordingly. The patient/family has been informed about the current condition and further plan of care. Agreed with the plan of care and understood without any language barrier. Every effort was made to ensure accuracy of workplace trainer and assessor. Any obvious errors or omissions should be clarified with the author of the document. Coding Level of Care Code 54180 Diagnoses UTI (urinary tract infection) N39.0 Sepsis A41.9 Morbid obesity due to excess calories E66.01 Bilateral kidney stones N20.0 Hypertension I10 Insulin dependent type 2 diabetes mellitus E11.9; Z79.4 Hyperlipidemia E78.5 COPD (chronic obstructive pulmonary disease) J44.9 CVA (cerebral vascular accident) I63.9 CHF (congestive heart failure) I50.9 Internal carotid artery stenosis I65.29
[2025-07-01] MEDS: morphine 4 mg/mL SDV 1 mL 2 MG IVP (02:27)
[2025-07-01] MEDS: heparin 5,000 unit/mL INJ 1 mL 5000 UNIT SUBCUT ×3 (03:28→21:55)
[2025-07-01 05:10] LABS: Hematocrit 38.3 % (36-47); Hemoglobin 11.60 g/dL (11.27-16.99); Mean Corpuscular HGB Conc 30.3 g/dL (30-55); Mean Corpuscular Hemoglobin 27.0 pg (27-33); Mean Corpuscular Volume 89.1 fl (85-98); Nucleated Red Blood Cells % 0 %; Platelet Count 238 10^3/cmm (157-399); Red Blood Count 4.30 10^6/uL (3.85-5.65); White Blood Count 17.97 10^3/uL (3.29-11.43)
[2025-07-01] MEDS: meropenem 1,000 MG in sodium chloride 0.9% (plus) 50 ML 100 MG IV ×2 (05:29→16:54)
[2025-07-01 05:34] LABS: Alanine Aminotransferase 14 U/L (0-33); Albumin Level 3.0 g/dL (3.5-5.2); Alkaline Phosphatase 174 U/L (35-105); Anion Gap 13.2 (5-19); Aspartate Amino Transferase 14 U/L (0-32); Blood Urea Nitrogen 10 mg/dL (8-23); Calcium 8.5 mg/dL (8.5-10.5); Carbon Dioxide 26 mmol/L (22-29); Chloride 106 mmol/L (98-107); Globulin 3.4 g/dL (1.3-4.6); Glucose 112 mg/dL (65-115); Osmolality Calculated 292 mOsm/kg (285-295); Potassium 4.2 mmol/L (3.5-5.1); Sodium 141 mmol/L (136-145); Total Protein 6.4 g/dL (6.6-8.7)
[2025-07-01 05:36] LABS: Creatinine Clr Calc Pharmacy 63.4169
[2025-07-01] MEDS: HYDROcodone-acetaminophen 5-325 mg Tablet 1 TAB PO (08:23)
[2025-07-01 08:27] LABS: MRSA PCR OZH (swab) NOT DETECTED (Not Detecte)
--- NOTE | 2025-07-01 11:09 | PC.PHAR ---
Pt has a [facility] portal with her current medications listed, on it. Family member went over the current medications with me. Pt expressed concern for the yeast on her abdomen that she has not been able to treat since she has not started the Fluconazole, yet.
[2025-07-01] MEDS: oxyCODONE 5 mg IR Tab/Cap 10 MG PO (20:19)
[2025-07-02] VITALS (12 sets, daily range): BP systolic 138–166; BP diastolic 79–83; PULSE 64–80; RESP 15–18; TEMP 36.3–36.9; O2SAT 92–97
[2025-07-02] MEDS: meropenem 1,000 MG in sodium chloride 0.9% (plus) 50 ML 100 MG IV ×2 (03:32→15:26)
[2025-07-02] MEDS: oxyCODONE 5 mg IR Tab/Cap 10 MG PO ×3 (05:07→20:19)
[2025-07-02] MEDS: heparin 5,000 unit/mL INJ 1 mL 5000 UNIT SUBCUT ×2 (10:48→23:45)
--- NOTE | 2025-07-02 14:05 | P.PN_ITS ---
Subjective 2 Subjective: Patient had improved significantly presented with febrile illness at home according to her and not been able to keep anything down patient has been afebrile. Had white count at 24,000 at presentation today had gone down to 17,000 with much improvement will allow another day prior to discharge blood cultures negative to date from 06/23/2025 and from 06/30/2025. Urinalysis subclinical with 50-60,000 colony count in the urine Patient had complained today of her chronic benign positional vertigo for which she uses meclizine at home and this will be ordered today. Will watch patient overnight for a tentative discharge tomorrow morning Vitals/I&O/Wt Last Vital Signs Temp 97.4 F L 07/02/25 11:30 Pulse 71 07/02/25 13:12 Resp 15 07/02/25 13:54 BP 147/81 07/02/25 11:30 Pulse Ox 92 07/02/25 13:12 O2 Del Method Room Air 07/02/25 13:12 O2 Flow Rate 3 07/02/25 07:50 07/01/25 07/02/25 07/02/25 22:59 06:59 14:59 Intake Total 5550.31 / 5600.31 530 / 6130.31 300 / 300 Output Total 1100 / 1100 300 / 300 Balance 5550.31 / 5600.31 -570 / 5030.31 0 / 0 Weight last 48 hrs Weight 112.491 kg Weight 112.491 kg Weight 110.677 kg Physical Exam 2 Narrative: Patient is supine in bed denies much of any complaint verbalized feeling better HEENT normocephalic atraumatic neck neck is supple cardiovascular heart rate is regular lungs are clear abdomen soft nontender nondistended unremarkable extremities are intact no edema has good pulses neurology has no focality lab studies lab studies reviewed and noted. White count has come down from 24,000- 17.9 yesterday Data 07/01/25 04:45 07/01/25 04:45 Micro: Microbiology 06/30/25 21:07 Urine Culture - Final Urine,Clean Catch 06/30/25 21:12 Blood Culture - Preliminary Blood NEGATIVE TO DATE 06/30/25 21:15 Blood Culture - Preliminary Blood NEGATIVE TO DATE A&P Assessment and plan 1. Bacteremia: 2. DORIE (acute kidney injury): 3. Sepsis: 4. Bacteriuria: Plan: Culture negative bacteriuria with bacteremia and subclinical pyuria - Blood culture negative since 06/23/2025 and then on admission 06/30/2025 - Urine culture complete with subclinical colony counts of 50-60 - However high white count is resolving will follow-up with another day since white count it is now 17,000 - I will continue IV antibiotics and will discontinue this at discharge patient is on vancomycin and Merrem Chronic benign positional vertigo - Will place patient back on chronic meclizine Disposition - Will plan for discharge tomorrow - Follow-up with a white count and making sure patient does not run any fever and all things been equal, Patient is for discharge in a.m. PDMP PDMP Reviewed: Not Reviewed Attestations 2 Medical Necessity Statement*: Patient with resolving leukocytosis on IV antibiotics will need at least 1 more day in house for care. Coding Level of Care Code 19684 Diagnoses Bacteremia R78.81 DORIE (acute kidney injury) N17.9 Sepsis A41.9 Bacteriuria R82.71 Time Spent (min) 45
--- NOTE | 2025-07-02 14:46 | PC.PHAR ---
Pt reminded me she has an Enbrel rx they have been trying to get insurance to cover. They spoke to Son[employer] [phone] and are pretty sure it will be approved soon.
--- NOTE | 2025-07-02 15:11 | PHA.VACGOAL ---
Vancomycin Goal - Goal Vancomycin Goal:: 15-20 mg/L Vancomycin Indication:: Other (SEPSIS) - Therapy Current therapy:: Meropenem Day of therpy:: Day [1]of [] . Actual body weight (kg): 112.491 kg - Data Labs: WBC 17.97 10^3/uL (3.29-11.43) H 07/01/25 04:45 RBC 4.30 10^6/uL (3.85-5.65) 07/01/25 04:45 Hgb 11.60 g/dL (11.27-16.99) 07/01/25 04:45 Hct 38.3 % (36-47) 07/01/25 04:45 MCV 89.1 fl (85-98) D 07/01/25 04:45 MCH 27.0 pg (27-33) 07/01/25 04:45 MCHC 30.3 g/dL (30-55) 07/01/25 04:45 RDW 14.3 % (12.1-15.1) 07/01/25 04:45 Sodium 141 mmol/L (136-145) 07/01/25 04:45 Potassium 4.2 mmol/L (3.5-5.1) 07/01/25 04:45 Chloride 106 mmol/L (98-107) 07/01/25 04:45 Carbon Dioxide 26 mmol/L (22-29) 07/01/25 04:45 Anion Gap 13.2 (5-19) 07/01/25 04:45 BUN 10 mg/dL (8-23) 07/01/25 04:45 Creatinine 1.1 mg/dL (0.5-0.9) H 07/01/25 04:45 GFR Calculation 49.7 mL/min (90-130) L 07/01/25 04:45 Treatment plan:: new consult Regimen:: New start vancomycin for sepsis. No prior vancomycin history found. Patient received 2000 mg loading dose. Started on maintenance dose of 1500 mg q18h. Vancomycin trough ordered for @0900 on 07/03.
[2025-07-02] MEDS: ondansetron 2 mg/ML SDV 2 mL 4 MG IVP (17:09)
[2025-07-02] MEDS: meropenem 1,000 mg SDV 1000 MG IVP (23:45)
[2025-07-03] VITALS (9 sets, daily range): BP systolic 108–156; BP diastolic 63–83; PULSE 66–95; RESP 16–18; TEMP 36.7–36.8; O2SAT 91–95
[2025-07-03] MEDS: oxyCODONE 5 mg IR Tab/Cap 10 MG PO (02:34)
[2025-07-03] MEDS: meropenem 1,000 mg SDV 1000 MG IVP (07:35)
[2025-07-03 09:19] LABS: Hematocrit 36.7 % (36-47); Hemoglobin 11.30 g/dL (11.27-16.99); Mean Corpuscular HGB Conc 30.8 g/dL (30-55); Mean Corpuscular Hemoglobin 27.2 pg (27-33); Mean Corpuscular Volume 88.2 fl (85-98); Nucleated Red Blood Cells % 0 %; Platelet Count 261 10^3/cmm (157-399); Red Blood Count 4.16 10^6/uL (3.85-5.65); White Blood Count 11.11 10^3/uL (3.29-11.43)
[2025-07-03] MEDS: morphine 4 mg/mL SDV 1 mL 2 MG IVP (09:27)
[2025-07-03 09:41] LABS: Alanine Aminotransferase 9 U/L (0-33); Albumin Level 3.0 g/dL (3.5-5.2); Alkaline Phosphatase 154 U/L (35-105); Anion Gap 14.0 (5-19); Aspartate Amino Transferase 10 U/L (0-32); Blood Urea Nitrogen 7 mg/dL (8-23); Calcium 8.5 mg/dL (8.5-10.5); Carbon Dioxide 27 mmol/L (22-29); Chloride 101 mmol/L (98-107); Creatinine Clr Calc Pharmacy 70.5906; Globulin 2.9 g/dL (1.3-4.6); Glucose 140 mg/dL (65-115); Osmolality Calculated 286 mOsm/kg (285-295); Potassium 4.0 mmol/L (3.5-5.1); Sodium 138 mmol/L (136-145); Total Protein 5.9 g/dL (6.6-8.7)
--- NOTE | 2025-07-03 10:41 | PC.SOCIAL ---
IMM Updated Updated pt on IMM. No questions voiced. Provided pt a copy. Initialed, dated, & timed a copy & placed in chart.
[2025-07-03] MEDS: heparin 5,000 unit/mL INJ 1 mL 5000 UNIT SUBCUT (10:49)
--- NOTE | 2025-07-03 12:54 | P.DS_ITS ---
Discharge Providers Date of Admission: 06/30/25 22:34 Date of Discharge: July 03, 2025 Attending Provider at Admission: Stephen Morel MD Attending Provider at Discharge: Yulissa Hayes MD Primary Care Provider: Leah Millard DO Diagnoses at Discharge Discharge Diagnosis 1. Bacteremia: 2. DORIE (acute kidney injury): 3. Sepsis: 4. Bacteriuria: Reason for Visit Reason for Visit: DYSURIA Hospital Course Hospital Course Melissa Kinney is a 65 year old female with past medical history of hypertension, diabetes, cardiac arrest, COPD, hyperlipidemia, history of colon cancer, chronic pain bilateral kidney stones, incontinence, internal carotid artery stenosis, presented with fever and chills to ER with feeling of suprapubic pressure-like sensation and dysuria. Of note the patient has been admitted 1 month ago due to UTI and completed her antibiotics. She was doing fine until 1 month till yesterday that she presented with urine fever and chills with suprapubic pressure-like sensation to ER .she was also nauseous for the last 1 to 2 days along with the symptoms of UTI. She did not report any lower leg swellings, chest pain, chest pressure, any joint swellings. rest of the review of systems is unremarkable. patient at baseline needs 2-3L NC at home and CPAP at night due to sleep apnea Up on all follow-up and workup it was noted that patient just had pyuria but not UTI patient had encephalopathy secondary to bacteriuria and pyuria colony count was only 50-60 culture negative. Patient also was blood culture negative since the of this month and also culture negative on admission and 06/30/2025 patient was treated with high-dose antibiotics of meropenem and vancomycin for 4 days. Blood cultures were done before any antibiotics and it was negative to date since 07/01/2025 patient white count on admission was 24,000 and today it was down to 11,000 patient has stayed afebrile with no issues. Patient will not be going home on any antibiotics. There is nothing to treat. Physical Exam Narrative: Patient seen and evaluated generally and looking good HEENT normocephalic atraumatic neck neck is supple cardiovascular heart rate is regular lungs are pretty much clear abdomen soft nontender nondistended unremarkable extremities are intact no edema has good pulses neurology has no focality lab studies lab studies reviewed and noted. Discharge Data Studies Completed and Pending Completed Studies During Hospitalization Category Date Time Status CT abdomen pelvis wo con [id number] Urgent Cat Scan 06/30/25 20:24 Completed XR chest 1V portable [id number] Stat Exams 06/30/25 20: Completed Pending at discharge Category Date Time Status Blood Culture Stat Lab 06/30/25 21:12 Results Radiology Impressions Abdomen/Pelvis CT 06/30/25 20:24 IMPRESSION: Nonspecific thickening urinary bladder correlate with urinalysis to exclude infection Bilateral nonobstructing caliceal renal calculi. Chest X-Ray 06/30/25 20:25 IMPRESSION: Findings suggest right middle lobe subsegmental atelectasis, correlate and follow-up as indicated Laboratory Results WBC 11.11 10^3/uL (3.29-11.43) 07/03/25 09:06 RBC 4.16 10^6/uL (3.85-5.65) 07/03/25 09:06 Hgb 11.30 g/dL (11.27-16.99) 07/03/25 09:06 Hct 36.7 % (36-47) 07/03/25 09:06 MCV 88.2 fl (85-98) 07/03/25 09:06 MCH 27.2 pg (27-33) 07/03/25 09:06 MCHC 30.8 g/dL (30-55) 07/03/25 09:06 RDW 14.2 % (12.1-15.1) 07/03/25 09:06 Plt Count 261 10^3/cmm (157-399) 07/03/25 09:06 MPV 10.0 fL (7.4-10.4) 07/03/25 09:06 Neut % (Auto) 69.4 % 07/03/25 09:06 Lymph % (Auto) 19.8 % 07/03/25 09:06 Bracken % (Auto) 5.6 % 07/03/25 09:06 Eos % (Auto) 4.3 % 07/03/25 09:06 Baso % (Auto) 0.5 % 07/03/25 09:06 Neut # (Auto) 7.71 10^3/uL (1.8-7.7) H 07/03/25 09:06 Lymph # (Auto) 2.2 10^3/uL (0.8-4.8) 07/03/25 09:06 Bracken # (Auto) 0.6 10^3/uL (0.2-0.9) 07/03/25 09:06 Eos # (Auto) 0.5 10^3/uL (0.0-0.8) 07/03/25 09:06 Baso # (Auto) 0.1 10^3/uL (0.0-0.1) 07/03/25 09:06 Nucleated RBC % (auto) 0 % 07/03/25 09:06 Nucleated RBCs # 0.0 /100WBC 07/03/25 09:06 Specimen Type Arterial 06/30/25 21:20 Sample Site Brachial, right 06/30/25 21:20 ABG pH 7.41 (7.35-7.45) 06/30/25 21:20 ABG pCO2 45.1 mmHg (35-45) H 06/30/25 21:20 ABG pO2 72.6 mmHg (80.0-100.0) L 06/30/25 21:20 ABG PO2/FiO2 Ratio 259 06/30/25 21:20 ABG HCO3 28.3 mmol/L (22-26) H 06/30/25 21:20 ABG O2 Saturation 94.6 06/30/25 21:20 ABG Base Excess 3.0 mmol/L (-2.0-2.0) H 06/30/25 21:20 Abhi Test Pos 06/30/25 21:20 A-a O2 Gradient 9.1 mmHg (5-10) 06/30/25 21:20 Hematocrit 38.2 % (37-47) 06/30/25 21:20 Hgb O2 Saturation 92.5 % (95-100) L 06/30/25 21:20 Carboxyhemoglobin 1.3 %THgb (0.4-20.1) 06/30/25 21:20 Methemoglobin 0.9 % (0.4-1.5) 06/30/25 21:20 Total Hemoglobin 12.5 g/dL (12-16) 06/30/25 21:20 Sodium 139.0 mmol/L (131-143) 06/30/25 21:20 Potassium 4.0 mmol/L (3.5-5.0) 06/30/25 21:20 Glucose 148.0 mg/dL (70-115) H 06/30/25 21:20 Ionized Calcium 1.2 mmol/L (1.1-1.4) 06/30/25 21:20 O2 Delivery Device Nc 06/30/25 21:20 O2 Liters/Min 2.0 % 06/30/25 21:20 FiO2 28.0 % 06/30/25 21:20 Cad Design Engineer ID Bd 06/30/25 21:20 Sodium 138 mmol/L (136-145) 07/03/25 09:06 Potassium 4.0 mmol/L (3.5-5.1) 07/03/25 09:06 Chloride 101 mmol/L (98-107) 07/03/25 09:06 Carbon Dioxide 27 mmol/L (22-29) 07/03/25 09:06 Anion Gap 14.0 (5-19) 07/03/25 09:06 BUN 7 mg/dL (8-23) L 07/03/25 09:06 Creatinine 1.0 mg/dL (0.5-0.9) H 07/03/25 09:06 GFR Calculation 55.5 mL/min (90-130) L 07/03/25 09:06 Glucose 140 mg/dL (65-115) H 07/03/25 09:06 POC Glucose 96 mg/dL (70-110) 07/03/25 11:37 Calculated Osmolality 286 mOsm/kg (285-295) 07/03/25 09:06 Lactic Acid 1.7 mmol/L (0.5-2.2) 06/30/25 19:54 Calcium 8.5 mg/dL (8.5-10.5) 07/03/25 09:06 Total Bilirubin 0.4 mg/dL (0.15-1.2) 07/03/25 09:06 AST 10 U/L (0-32) 07/03/25 09:06 ALT 9 U/L (0-33) 07/03/25 09:06 Alkaline Phosphatase 154 U/L (35-105) H 07/03/25 09:06 Total Protein 5.9 g/dL (6.6-8.7) L 07/03/25 09:06 Albumin 3.0 g/dL (3.5-5.2) L 07/03/25 09:06 Globulin 2.9 g/dL (1.3-4.6) 07/03/25 09:06 Urine Color Yellow (Yellow) 06/30/25 21:07 Urine Appearance Turbid (CLEAR) A 06/30/25 21:07 Urine pH 5.5 (5-7) 06/30/25 21:07 Ur Specific [place] 1.017 (1.005-1.030) 06/30/25 21:07 Urine Protein 2+ (Negative) A 06/30/25 21:07 Urine Glucose (UA) Negative (Normal) 06/30/25 21:07 Urine Ketones Trace (Negative) 06/30/25 21: Urine Blood 2+ (Negative) A 06/30/25 21: Urine Nitrate Negative (Negative) 06/30/25 21: Urine Bilirubin Negative (Negative) 06/30/25 21:07 Urine Urobilinogen 1.0 mg/dL (Negative) 06/30/25 21:07 Ur Leukocyte Esterase 3+ (Negative) A 06/30/25 21:07 Urine RBC 3-5 /hpf (0-2) 06/30/25 21:07 Urine WBC >100 /hpf (0-5) H 06/30/25 21:07 Ur Squamous Epith Cells 11-20 /hpf (0-5) H 06/30/25 21:07 Amorphous Sediment Not Reportable 06/30/25 21:07 Urine Bacteria 2+ /hpf (NONE) H 06/30/25 21:07 Hyaline Casts 4.43 /lpf 06/30/25 21:07 Nasal MRSA (PCR) Not detected (Not Detecte) 07/01/25 06:40 Vancomycin Trough 19.2 ug/mL (10-15) H 07/03/25 09:06 Influenza A (PCR) Negative (Negative) 06/30/25 20:49 Influenza Type B (PCR) Negative (Negative) 06/30/25 20:49 RSV (PCR) Negative (Negative) 06/30/25 20:49 SARS-CoV-2 (PCR) Negative (Negative) 06/30/25 20:49 Vitals Last Vital Signs Temp 98.1 F 07/03/25 11:13 Pulse 66 07/03/25 11:13 Resp 17 07/03/25 11:13 BP 156/83 07/03/25 11:13 Pulse Ox 95 07/03/25 11:13 O2 Del Method Room Air 07/03/25 11:13 O2 Flow Rate 3 07/02/25 19:13 Discharge Plan Discharge Patient Disposition: Home Health Service Condition: Stable Prescriptions: Continued cyanocobalamin (vitamin B-12) 1,000 mcg capsule 1,000 mcg PO DAILY albuterol sulfate 90 mcg/actuation HFA aerosol inhaler 2 puff INHALATION Q6H PRN (Reason: Respiratory Distress) atorvastatin 80 mg tablet 80 mg PO BEDTIME (DME) WALKER See Rx Instructions .Route .MEDSUPPLY Qty: 1 0RF Rx Instructions: As directed cholecalciferol (vitamin D3) 25 mcg (1,000 unit) capsule 25 mcg PO DAILY oxycodone 10 mg tablet 10 mg PO TID PRN (Reason: Pain) Mounjaro 15 mg/0.5 mL pen injector 15 mg SUBCUT Q7D Qty: 2 1RF Rx Instructions: Thursday ([facility]) blood sugar diagnostic Strip See Rx Instructions .Route Qty: 200 3RF Rx Instructions: As directed ([facility]) blood-glucose meter Kit See Rx Instructions .Route Qty: 1 0RF Rx Instructions: Check BS twice a day. ([facility]) Dexcom G7 Hand Rounder Misc See Rx Instructions .Route Qty: 1 0RF Rx Instructions: As directed ([facility]) Dexcom G7 Sensor Device See Rx Instructions .ROUTE .MEDSUPPLY Qty: 9 1RF Rx Instructions: Change every 10days aspirin 81 mg Tablet,Delayed Release (Dr/Ec) 162 mg PO DAILY Qty: 60 0RF spironolactone 25 mg Tablet 25 mg PO DAILY Qty: 30 0RF pantoprazole [Protonix] 40 mg tablet,delayed release (DR/EC) 40 mg PO BID PRN (Reason: Acid Reflux) fluconazole 100 mg tablet 100 mg PO DAILY ketoconazole 2 % shampoo See Rx Instructions .ROUTE .COMPLEX Rx Instructions: USE 10 MLS DIRECTED TO WASH/SHAMPOO HAIR ONCE DAILY FOR ONE WEEK, THEN USE TWICE WEEKLY. alprazolam 0.5 mg Tablet 0.5 mg PO DAILY PRN (Reason: Anxiety) meclizine 25 mg Tablet 25 mg PO TID PRN (Reason: Dizziness) docusate sodium [Colace] 100 mg Capsule 200 mg PO BID PRN (Reason: Constipation) Nurtec ODT 75 mg Tablet,Disintegrating 75 mg PO DAILY PRN (Reason: Migraine Headache) cetirizine [Zyrtec] 10 mg Tablet 10 mg PO DAILY PRN (Reason: allergies) clobetasol 0.05 % cream 1 applic TOPICAL PRN PRN (Reason: psoriasis) amlodipine 2.5 mg tablet 2.5 mg PO BEDTIME trazodone 150 mg tablet 150 mg PO BEDTIME lidocaine 5 % adhesive patch,medicated 1 - 3 patch topical DAILY PRN (Reason: Pain) metoprolol tartrate 50 mg tablet 50 mg PO BID mupirocin 2 % Ointment 1 applic TOPICAL DAILY PRN (Reason: redness) ondansetron 4 mg tablet,disintegrating 4 mg PO Q6H PRN (Reason: Nausea) (DME) oxygen-air delivery systems Device MISCELLANEOUS aripiprazole 15 mg tablet 15 mg PO DAILY pregabalin 100 mg capsule 100 mg PO BID vilazodone 40 mg tablet 40 mg PO DAILY mirabegron [Myrbetriq] 25 mg tablet extended release 24 hr 25 mg PO DAILY Humulin R U-500 (Conc) Kwikpen 500 unit/mL (3 mL) insulin pen See Rx Instructions .ROUTE .COMPLEX PRN (Reason: high blood sugar) Rx Instructions: Inject 100-200mg tid as needed per sliding scale. Automation And Controls Manager OK for DC: Hospitalist Discharge Order = DC NOW: Discharge Order (Routine); Ordered 07/03/25 Ordered By: Yulissa Hayes Other Ambulatory Orders: DME: Wheelchair (Order) Location: None Selected Ordered By: Yulissa Hayes Referrals: Leah Millard DO [Primary Care Provider, Family Practice] Referral Note: Patient to follow-up with the primary care doctor within 7 days Patient Instructions: Opioid Safety, Patient Portal & Dione Instructions Discharge Attestations Time Spent in Discharge Care*: less than 30 min Quality Metrics Clinical Quality Measures [ No reported AMI, CVA or VTE this stay] Coding Level of Care Code 11021 Diagnoses Bacteremia R78.81 DORIE (acute kidney injury) N17.9 Sepsis A41.9 Sepsis acute organ dysfunction status: unspecified Sepsis type: sepsis due to unspecified organism Bacteriuria R82.71 Time Spent (min) 30
--- OUTSIDE RECORDS SUMMARY | 2025-07-07 13:15 | XMS_ITS | Clinical Summary ---
Author Organization [facility] Address [address] [place] [address] Care Team Providers Care Manager Client Support Name Role Phone Leah Millard Primary Care [...] unspecified vessel or lesion type, unspecified whether w[place] or transplanted heart Take 1 Tablet (30 [...] Anxiety. 30 Tablet 10/09/19 21 Active Insulin Martin, Disposable, 32 gauge x 5/16 NeedleIndications: Type [...] Chronic obstructive pulmonary disease 05/29/2015 Atherosclerosis of [place] co ronary artery of [place] heart without angina pectoris 05/29/2015 Diabetes mellitus 05/29/2015 Resolved Problems Problem Noted Date Diagnosed Date Resolved Date Stable angina 11/02/2019 01/01/2020 Morbid obesity with body mas s index of 40.0-49.9 11/02/2019 11/08/2020 Tobacco use 11/02/2019 01/19/2021 [place] (myocardial infarction) 04/09/2016 0 11/02/2019 Immunizations Immunization [...] on file Legal Sex Female 4:46 AM TELEVISION SCRIPT WRITER Gender Identity Not on file Sexual Orientation [...] - Risk 50-74 years 1-dose series) 2009 DIABETES MICROALBUMIN ANNUAL SCREEN 10/05/2019 10/05/2018 BREAST [...] 10/24/2020 HEMOGLOBIN A1C Routine 10/09/2020 12:19 PM TELEVISION SCRIPT WRITER Type 2 diabetes mellitus with other circulatory complication, with long-term current use of insulin ([facility]) MAMMO SCREEN BILAT W OR WO CAD Routine 01/05/2019 Screening for breast cancer HM DIABETES FOOT EXAM Routine 12/27/2018 MICROALBUMIN/CREATI NINE RATIO, RANDOM UR Routine 10/05/2018 1:32 PM TELEVISION SCRIPT WRITER Type 2 diabetes mellitus with hyperglycemia, with long-term current use of insulin ([facility]) from Last 3 Months or Most Recently [...] LAB * HEMOGLOBIN A1C (10/09/2020 12:19 PM TELEVISION SCRIPT WRITER) HEMOGLOBIN A1C 5.3 See Comment % 10/09/2020 8:27 PM TELEVISION SCRIPT WRITER [facility] EST. AVG GLUCOSE, A1C 105 mg/dL 10/09/2020 8:27 PM TELEVISION SCRIPT WRITER [facility] Blood Venipuncture / Unknown 10/09/2020 12:19 PM TELEVISION SCRIPT WRITER 10/09/2020 8:09 PM TELEVISION SCRIPT WRITER Narrative [facility] - 10/09/2020 8:27 PM TELEVISION SCRIPT WRITER HGB A1C INTERPRETATION NORMAL: <5.7% PRE-DIABETES: 5.7 - 6.4% DIABETES: 6.5% OR GREATER Falsely low A1C measurements can occur when: 1. Anemia and/or hemolytic anemia is present. 2. Hemoglobin variants present. 3. Renal failure. 4. Transfusion of blood product in the last 120 days. We recommend ordering a fructosamine test([id number]) to more accurately assess glycemic status if any of the above conditions are present. Leah Millard DO CHEMISTRY ORDERABLES Final Result [facility] CLIA# [id number] [address] [place] [id number] * MAMMO SCREEN BILAT W OR WO CAD (01/05/2019) Anatomical Region Laterality Modality Breast Bilateral Mammography Marleni Zimmer [facility] MAMMO ORDERABLES Final R esult * HM DIABETES FOOT EXAM (12/27/2018) Marleni Zimmer [facility] HEALTH MAINTENANCE Final Result * (ABNORMAL) MICROALBUMIN/CREATININE RATIO, RANDOM UR (10/05/2018 1:32 PM TELEVISION SCRIPT WRITER) MICROALBUMIN, URINE <1.2 No Reference Range mg/dL 10/05/2018 9:36 PM [facility] CREATININE, URINE 20.2(L) 29.0 - 226.0 mg/dL 10/05/2018 9:36 PM [facility] Comment: Reference Range varies with fluid intake and diet. Urine URINE SPECIMEN OBTAINED BY CLEAN CATCH PROCEDURE / Unknown Collection / Unknown 10/05/2018 1:32 PM TELEVISION SCRIPT WRITER 10/05/2018 7:59 PM TELEVISION SCRIPT WRITER Narrative [facility] - 10/05/2018 9:36 PM TELEVISION SCRIPT WRITER Condition Microalbumin/Creat ratio Normal Males <17 Normal Females <25 Microalbuminuria Males 17-299 Microalbuminuria Females 25-299 Overt proteinuria >=300 Unable to calculate urine microalbumin/creatinine ratio because urine microalbumin result is outside of reportable range. Marleni Zimmer INTERIOR PLANT CARETAKER URINE ORDERABLES Final R esult [facility] CLIA# [id number] [address] [place] [address] from Last 3 Months or Most Recently Relevant to Health Maintenance Insurance MEDICAID [place] Care Teams Manager Client Support Relationship Specialty Start Date End Date Leah Millard DO [address] [place] [address] PCP - General Family Practice 10/05/18
--- OUTSIDE RECORDS SUMMARY | 2025-07-07 13:15 | XMS_ITS | Encounter Summary ---
[facility] Organization [facility] Address [address] [place] [address] Care Team Providers Care Chief Librarian Work With Blind Name Role Phone Leah Millard DO Primary Care Provider [phone] Encounter Details Date Type Department Care Team (Latest Contact Info) Description 03/06/2003 Outpatient Historical [facility] [address] [place] [address] AMBULANCE, [facility] [facility] CHEST PAIN NOS (Primary Dx) Social History Tobacco Use Types Packs/Day Years Used Date Smoking Tobacco: Never Assessed Comments Unknown Sex and Gender Information Value Date Recorded Sex Assigned at Not on file Legal Sex Female 4:46 AM SADDLE AND HARNESS MAKER Gender Identity Not on file Sexual Orientation Not on file documented as of this encounter Plan of Treatment Not on file documented as of this encounter Visit Diagnoses Diagnosis Chest pain, unspecified- Primary documented in this encounter Care Teams Chief Librarian Work With Blind Relationship Specialty Start Date End Date Leah Millard DO [address] [place] [address] PCP - General Family Practice 10/05/18 documented as of this encounter
== END 2025-07-03 14:15 | disposition home health service (06) ==
LOC: ER 22:57 → ER IP 23:19 → MEDSURG 07-01 16:25
PROVIDERS: Emergency Medicine; Admitting Provider Student in an Organized Health Care Education/Training Program; Emergency Provider Physician Assistant; PCP Family Medicine; Visit Provider Internal Medicine
DX: A41.9 Sepsis, unspecified organism (principal); R82.71 Bacteriuria; N17.9 Acute kidney failure, unspecified; Z99.81 Dependence on supplemental oxygen; K21.9 Gastro-esophageal reflux disease without esophagitis; Z79.82 Long term (current) use of aspirin; Z79.891 Long term (current) use of opiate analgesic; I10 Essential (primary) hypertension; Z86.74 Personal history of sudden cardiac arrest; E78.5 Hyperlipidemia, unspecified; Z85.038 Personal history of other malignant neoplasm of large intestine; G47.30 Sleep apnea, unspecified; Z99.89 Dependence on other enabling machines and devices; J44.9 Chronic obstructive pulmonary disease, unspecified
CPT/HCPCS: 36415; 36416; 36600; 71045; 74176; 80051; 80053; 80202; 81001; 82330; 82805; 82962; 83605; 85025; 87040; 87086; 87637; 93005; 94640; 96365; 96366; 96367; 96372; 96375; 96376; 99291; G0378; J1171; J1644; J2185; J2270; J2405; J3372; J3373; J3490; J7030; J7120; J8597; J9999

== ENCOUNTER 2025-08-02 15:16 | Observation (INO) | payer MEDICARE, MEDICAID, SELFPAY ==
--- OUTSIDE RECORDS SUMMARY | 2025-07-26 16:20 | XMS_ITS | Encounter Summary ---
Author Organization [facility] Address [address] [place] [address] Care Team Providers Care Manager Utilities Name Role Phone Leah Millard DO Primary Care Provider [phone] Reason for Visit * Reason Comments Chronic Conditions Coordination Encounter Details Date Type Department Care Team (Late st Contact Info) Description 07/26/2025 4:20 PM GED PREPARATION TEACHER Office Visit [facility] [place] [address] [place] [address] Leah Millard DO [address] [place] [address] Recurrent UTI (Primary Dx) Social History Tobacco Use Types [...] on file Legal Sex Female 6:02 AM GED PREPARATION TEACHER Gender Identity Not on file Sexual Orientation Not on file documented as of this encounter Last Filed Vital Signs Vital Sign Reading Time Taken Comments Blood Pressure 122/62 07/26/2025 4:21 PM GED PREPARATION TEACHER Pulse 73 07/26/2025 4:21 PM GED PREPARATION TEACHER Temperature 36.2 C (97.2 F) 07/26/2025 4:21 PM GED PREPARATION TEACHER Respiratory Rate - - Oxygen Saturation 95% 07/26/2025 4:21 PM GED PREPARATION TEACHER Inhaled Oxygen Concentration - - Weight 110.5 kg (243 lb 8 oz) 07/26/2025 4:21 PM GED PREPARATION TEACHER Height 167.6 cm (5' 6 ) 07/26/2025 4:21 PM GED PREPARATION TEACHER s tated Body Mass Index 39.3 07/26/2025 4:21 PM GED PREPARATION TEACHER documented in this encounter Plan of Treatment Upcoming Encounters Date Type Department Care Team (Late st Contact Info) Description 08/30/2025 2:40 PM GED PREPARATION TEACHER Office Visit [facility] [address] [place] [address] Leah Millard, DO [address] [place] [address] 09/15/2025 11:00 AM GED PREPARATION TEACHER [facility] [address] [place] [address] [facility] [address] [place] [address] 11/28/2025 10:40 AM CDT Office Visit [facility] [address] [place] [address] Leah Millard, DO [address] [place] [address] documented as of this encounter Procedures Procedure Name Priority Date/Time Associated Diagnosis Comments URINE CULTURE Routine 07/26/2025 4:55 PM GED PREPARATION TEACHER Recurrent UTI POC URINALYSIS DIPSTICK NON AUTOMATED Routine 07/26/2025 4:00 PM GED PREPARATION TEACHER Recurrent UTI documented in this encounter Results * (ABNORMAL) URINE CULTURE (07/26/2025 4:55 PM GED PREPARATION TEACHER) URINE CULTURE SEE NOTE(A) [facility] Comment: CULTURE, URINE, ROUTINE Micro Number: [id number] Test Status: Final Specimen Source: Urine, clean catch Specimen Quality: Adequate Result: 50,000-99,000 CFU/mL of Escherichia coli E.coli INT ANNALEE AMOX/CLAVULANATE S 4 AMP/SULBACTAM S 4 CEFAZOLIN R >=32 1 CEFEPIME S 0.5 CEFTAZIDIME S 2 CEFTRIAXONE R 32 CIPROFLOXACIN R >=4 GENTAMICIN S <=1 IMIPENEM S <=0.25 LEVOFLOXACIN R >=8 MEROPENEM S <=0.25 NITROFURANTOIN S <=16 PIP/TAZOBACTAM S <=4 TRIMETHOPRIM/SULFA R >=320 S = Susceptible I = Intermediate R = Resistant NS = Not susceptible SDD = Susceptible Dose Dependent * = Not Tested NR = Not Reported NN = See Therapy Comments THERAPY COMMENTS Note 1: For uncomplicated UTI caused by E. coli, K. pneumoniae or P. mirabilis: Cefazolin is susceptible if ANNALEE <32 mcg/mL and predicts susceptible to the oral agents cefaclor, cefdinir, cefpodoxime, cefprozil, cefuroxime, cephalexin and loracarbef. Test Performed at: [facility] [address] [place] [id number] Funmi Medellin MD Urine URINE SPECIMEN OBTAINED BY CLEAN CATCH PROCEDURE / Unknown 07/26/2025 4:55 PM GED PREPARATION TEACHER 07/27/2025 1:12 AM GED PREPARATION TEACHER us Leah Millard DO MICROBIOLOGY - GENERAL ORDE JACK Final Result [facility] [phone] [facility] [employer] [address] * (ABNORMAL) POC URINALYSIS DIPSTICK NON AUTOMATED (07/26/2025 4:00 PM GED PREPARATION TEACHER) Pathologist [facility] COLOR UA POC Yellow Pale to Dark Yellow [facility] CLARITY UA POC Clear Clear, Other [facility] GLUCOSE UA POC Negative Negative, Normal [facility] BILIRUBIN UA POC Negative Negative [facility] KETONES UA POC Negative Negative [facility] SPECIFIC GRAVITY UA POC >=1.030 1.000 - 1.[address] [facility] BLOOD UA POC 1+(A) Negative [facility] C LINIC [facility] PH UA POC 6.0 5.0 - 8.0 [facility] CLIN IC [facility] PROTEIN UA POC 1+(A) Negative [facility] UROBILINOGEN UA POC 0.2 <2.0 mg/dL [facility] NITRITE UA POC Positive(A) Negative [facility] LEUKOCYTE ESTERASE UA POC 3+(A) Negative [facility] KIT LOT NUMBER POC 501,[address] [facility] KIT EXP DATE POC 03/13/2026 [facility] Urine 07/26/2025 4:00 PM GED PREPARATION TEACHER Leah Millard DO POINT OF CARE TESTING Final Result [facility] CLIA# [id number] [address] [place] [address] documented in this encounter Visit Diagnoses Diagnosis Recurrent UTI- Primary Urinary tract infection, site not specified documented in this encounter Additional Health Concerns Assessment Noted Time PHQ-9 Depression Total Score: 2 10/11/19 25 12:26 PM GED PREPARATION TEACHER documented as of this encounter Care Teams Manager Utilities Relationship Specialty Start Date End Date Leah Millard DO [address] [place] [facility] [address] PCP - General Family Practice 10/05/18 documented as of this encounter
[2025-08-02] VITALS (13 sets, daily range): BP systolic 123–157; BP diastolic 63–84; PULSE 60–71; RESP 17–18; TEMP 36.4–36.8; O2SAT 93–97; BMI 38.2
--- NOTE | 2025-08-02 16:01 | CTR_ITS ---
PROCEDURE INFORMATION: Exam: CT Abdomen And Pelvis Without Contrast Exam date and time: 08/02/2025 5:40 PM Age: 65 years old Clinical indication: Abdominal pain; Additional info: Abd pain TECHNIQUE: Imaging protocol: Computed tomography of the abdomen and pelvis without contrast. Radiation optimization: All CT scans at this facility use at least one of these dose optimization techniques: automated exposure control; mA and/or kV adjustment per patient size (includes targeted exams where dose is matched to clinical indication); or iterative reconstruction. COMPARISON: CT abdomen pelvis con [id number] 06/30/2025 10:00 PM RADIATION DOSE METRICS: Total DLP (mGy-cm): 1082.83 FINDINGS: Lungs: There are findings of compressive atelectasis present in lower lobes. Coronary arteries: Coronary artery calcifications present. Liver: Unremarkable. No mass. Gallbladder and biliary ducts: Gallbladder not visualized could be surgically removed or contracted. Pancreas: Unremarkable. No ductal dilation. Spleen: Unremarkable. No splenomegaly. Adrenal glands: Normal. No mass. Kidneys and ureters: There are bilateral nonobstructing caliceal renal calculi largest right midpole 1.7 cm. There are no obstructing calculi or hydronephrosis Stomach and bowel: Patient is status post sigmoid colonic resection. Appendix: Appendix was not visualized, no inflammatory changes in right lower quadrant Intraperitoneal space: There is no intra abdominopelvic free air or free fluid demonstrated. Vasculature: Unremarkable. No abdominal aortic aneurysm. Lymph nodes: Unremarkable. No enlarged lymph nodes. Urinary bladder: Urinary bladder is distended with nonspecific thickening of the wall, there is concern for infection consider urinalysis correlation Reproductive: Unremarkable as visualized. Bones/joints: Unremarkable. No acute fracture. Soft tissues: Unremarkable. CT/CT abdomen pelvis con [id number] IMPRESSION: Nonspecific thickening urinary bladder wall as above noted if there is concern for infection correlate with urinalysis Bilateral nonobstructing caliceal renal calculi largest right midpole 1.7 cm. Postcholecystectomy status.
--- NOTE | 2025-08-02 16:01 | W.ED.WEAKNES ---
HPI - Weakness General: Chief complaint: Weakness Stated complaint: urinary / lethargy Time Seen by Provider: 08/02/25 15:57 Source: patient Mode of arrival: ambulatory Limitations: no limitations History of Present Illness: 65-year-old female states she has a history of recurrent UTIs. States she did have a UTI this week and is on Macrobid currently but states she is been getting generally weaker. States she is having some flank pain with extreme fatigue and feels like her UTI is worsening. Denies any known fever denies any vomiting or diarrhea. States she had felt very lethargic Related Data Home Medications ?Medication ?Instructions ?Recorded ?Confirmed albuterol sulfate 90 mcg/actuation 2 puff inhalation Q6H PRN 10/04/19 07/01/25 aerosol inhaler Respiratory Distress atorvastatin 80 mg tablet 80 mg PO BEDTIME 10/04/19 07/01/25 cyanocobalamin (vitamin B-12) 1,000 mcg PO DAILY 10/04/19 07/01/25 1,000 mcg capsule cholecalciferol (vitamin D3) 25 25 mcg PO DAILY 09/26/21 07/01/25 mcg (1,000 unit) capsule oxycodone 10 mg tablet 10 mg PO TID PRN Pain 05/26/23 07/01/25 amlodipine 2.5 mg tablet 2.5 mg PO BEDTIME 05/22/25 07/01/25 aripiprazole 15 mg tablet 15 mg PO DAILY 05/22/25 07/01/25 cetirizine 10 mg tablet (Zyrtec) 10 mg PO DAILY PRN allergies 05/22/25 07/01/25 clobetasol 0.05 % topical cream 1 applic topical PRN PRN psoriasis 05/22/25 07/01/25 insulin regular hum U-500 conc 500 See Rx Instructions .Route 05/22/25 07/01/25 unit/mL(3 mL) subcut pen (Humulin .COMPLEX PRN high blood sugar R U-500 (Conc) Insulin Kwikpen) lidocaine 5 % topical patch 1 - 3 patch topical DAILY PRN Pain 05/22/25 07/01/25 metoprolol tartrate 50 mg tablet 50 mg PO BID 05/22/25 07/01/25 mirabegron 25 mg tablet,extended 25 mg PO DAILY 05/22/25 07/01/25 release 24 hr (Myrbetriq) mupirocin 2 % topical ointment 1 applic topical DAILY PRN redness 05/22/25 07/01/25 ondansetron 4 mg disintegrating 4 mg PO Q6H PRN Nausea 05/22/25 07/01/25 tablet oxygen-air delivery systems 05/22/25 07/01/25 pregabalin 100 mg capsule 100 mg PO BID 05/22/25 07/01/25 trazodone 150 mg tablet 150 mg PO BEDTIME 05/22/25 07/01/25 vilazodone 40 mg tablet 40 mg PO DAILY 05/22/25 07/01/25 alprazolam 0.5 mg tablet 0.5 mg PO DAILY PRN Anxiety 07/01/25 07/01/25 docusate sodium 100 mg capsule 200 mg PO BID PRN Constipation 07/01/25 07/01/25 (Colace) fluconazole 100 mg tablet 100 mg PO DAILY 07/01/25 07/01/25 ketoconazole 2 % shampoo See Rx Instructions .Route .COMPLEX 07/01/25 07/01/25 meclizine 25 mg tablet 25 mg PO TID PRN Dizziness 07/01/25 07/01/25 pantoprazole 40 mg tablet,delayed 40 mg PO BID PRN Acid Reflux 07/01/25 07/01/25 release (Protonix) rimegepant 75 mg disintegrating 75 mg PO DAILY PRN Migraine 07/01/25 07/01/25 tablet (Nurtec ODT) Headache Previous Rx's ?Medication ?Instructions ?Recorded WALKER #1 ea 10/04/20 aspirin 81 mg tablet,delayed 162 mg (2 x 81 mg) PO DAILY #60 11/03/20 release tabs spironolactone 25 mg tablet 25 mg PO DAILY #30 tabs 11/03/20 blood sugar diagnostic #200 ea 08/23/21 blood-glucose meter #1 ea 08/23/21 blood-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,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 outside,cont #1 ea 10/07/23 (Dexcom G7 Dampproofer) tirzepatide 15 mg/0.5 mL 15 mg (0.5 mL) SUBCUT Q7D #2 mL 12/23/23 subcutaneous pen injector (Shadi) blood-glucose sensor (Dexcom G7 #9 ea 02/11/24 Sensor device) Allergies Allergy/AdvReac Type Severity Reaction Status Date / Time clindamycin Allergy Intermediate rash/nausea Verified 06/01/25 10:04 cephalexin (From Keflex) Allergy RASH,FEVER Verified 06/01/25 10:04 clonazepam (From Klonopin) Allergy SEIZURES Verified 06/01/25 10:04 doxycycline Allergy CONVULSIONS Verified 06/01/25 10:04 glyburide Allergy HIVES Verified 06/01/25 10:04 iodine Allergy ALGY-Wheezi Verified 06/01/25 10:04 ng Penicillins Allergy CONVULSIONS Verified 06/01/25 10:04 piperacillin (From Zosyn) Allergy ADR-Itching Verified 06/01/25 10:04 Sulfa (Sulfonamide Allergy RASH Verified 06/01/25 10:04 Antibiotics) tazobactam (From Zosyn) Allergy ADR-Itching Verified 06/01/25 10:04 tramadol (From Ultram) Allergy HIVES Verified 06/01/25 10:04 hydroxyzine Allergy unknown Uncoded 06/01/25 10:04 Review of Systems Const: Reports: malaise PFSH ED PFSH: Medical History Chronic cystitis Multiple sclerosis Diagnosed in 2014 Internal carotid artery stenosis Chronic pain History of colon cancer COPD (chronic obstructive pulmonary disease) Hyperlipidemia Insulin dependent type 2 diabetes mellitus Cardiac arrest Hypertension Patella fracture Incontinence Recurrent urinary tract infection Bilateral kidney stones Calcium urolithiasis Carpal tunnel syndrome of left wrist Surgical History Hx of detached retina repair History of tonsillectomy S/P extracorporeal shock wave therapy LEFT URETERAL STENT PLACEMENT History of appendectomy History of cholecystectomy Hx of adenoidectomy History of colon resection COLON CANCER Family History Father Parkinson disease Mother Parkinson disease Other CAD (coronary artery disease) Social History Smoking and tobacco/nicotine status: former use of tobacco/nicotine Alcohol intake: never Substance/Drug Use: never Adopted: No Caregiver/support person: No Lives independently: No Household members: spouse Marital status: Current occupational status: disabled Current gender identity: Female Physical Exam Const: COMMON NORMALS: patient oriented x3 HENMT: COMMON NORMALS: normocephalic and atraumatic HEAD & SCALP: normocephalic and atraumatic Neck/C-Spine: COMMON NORMALS: full ROM and supple Chest: COMMONS NORMALS: normal inspection of the chest and normal palpation of entire chest wall Resp: COMMON NORMALS: normal respiratory effort, No retractions, No use of accessory muscles and clear to auscultation bilaterally AUSCULTATION: clear to auscultation bilaterally Cardio: COMMON NORMALS: regular rate, regular rhythm and No murmurs present (Cardio) RATE: regular rate RHYTHM: regular rhythm GI: COMMON NORMALS: Normal to inspection, nondistended, normoactive bowel sounds present, Soft to palpation, non-tender and no masses PALPATION: Yes Soft to palpation Extremity: COMMON NORMALS: normal to inspection and full ROM Neuro: COMMON NORMALS: patient oriented x3, moves all extremities and no focal motor deficits Psych: COMMON NORMALS: mental status grossly normal, Normal thought process present and cooperative THOUGHT PROCESS: Normal thought process present Skin: COMMON NORMALS: no rashes or lesions noted and no wounds GENERAL SKIN EXAM: no rashes or lesions noted Course Vital Signs: Vital signs: Vital Signs Temperature 98.2 F 08/02/25 15:17 Pulse Rate 67 08/02/25 18:05 Respiratory Rate 17 08/02/25 15:17 Blood Pressure 150/70 08/02/25 18:05 Pulse Oximetry 97 08/02/25 18:05 Oxygen Delivery Me thod Nasal Cannula 08/02/25 18:05 Oxygen Flow Rate 1 08/02/25 18:05 MDM - Weakness Medical Decision Making Patient presents here with generalized weakness along with dysuria. Patient does have acute cystitis with a white count of 17.6 she has no signs of sepsis blood pressures here been normal. Chest x-ray was reviewed by me showed no acute abnormality her abdominal CT does show thickening of the urinary bladder no signs of obstructing kidney stones. Patient was given IV Levaquin here I spoke to hospitalist Dr. GIGI RIVERA and will admit. I did discuss plan with patient and family and they agree Medical Records I reviewed the patient's medical records. Lab Data I reviewed the patient's lab results. 08/02/25 16:20 08/02/25 16:20 Radiology Impressions Abdomen/Pelvis CT 08/02/25 16:01 IMPRESSION: Nonspecific thickening urinary bladder wall as above noted if there is concern for infection correlate with urinalysis Bilateral nonobstructing caliceal renal calculi largest right midpole 1.7 cm. Postcholecystectomy status. Chest X-Ray 08/02/25 17:46 IMPRESSION: No acute findings. Laboratory Results WBC 17.61 10^3/uL (3.29-11.43) H 08/02/25 16:20 RBC 4.45 10^6/uL (3.85-5.65) 08/02/25 16:20 Hgb 12.00 g/dL (11.27-16.99) 08/02/25 16:20 Hct 38.6 % (36-47) 08/02/25 16:20 MCV 86.7 fl (85-98) 08/02/25 16:20 MCH 27.0 pg (27-33) 08/02/25 16:20 MCHC 31.1 g/dL (30-55) 08/02/25 16:20 RDW 14.5 % (12.1-15.1) 08/02/25 16:20 Plt Count 205 10^3/cmm (157-399) 08/02/25 16:20 MPV 10.5 fL (7.4-10.4) H 08/02/25 16:20 Neut % (Auto) 64.9 % 08/02/25 16:20 Lymph % (Auto) 27.1 % 08/02/25 16:20 [place] % (Auto) 6.3 % 08/02/25 16:20 Eos % (Auto) 0.7 % 08/02/25 16:20 Baso % (Auto) 0.5 % 08/02/25 16:20 Neut # (Auto) 11.43 10^3/uL (1.8-7.7) H 08/02/25 16:20 Lymph # (Auto) 4.8 10^3/uL (0.8-4.8) 08/02/25 16:20 [place] # (Auto) 1.1 10^3/uL (0.2-0.9) H 08/02/25 16:20 Eos # (Auto) 0.1 10^3/uL (0.0-0.8) 08/02/25 16:20 Baso # (Auto) 0.1 10^3/uL (0.0-0.1) 08/02/25 16:20 Nucleated RBC % (auto) 0 % 08/02/25 16:20 Nucleated RBCs # 0.0 /100WBC 08/02/25 16:20 Sodium 140 mmol/L (136-145) 08/02/25 16:20 Potassium 4.0 mmol/L (3.5-5.1) 08/02/25 16:20 Chloride 101 mmol/L (98-107) 08/02/25 16:20 Carbon Dioxide 29 mmol/L (22-29) 08/02/25 16:20 Anion Gap 14.0 (5-19) 08/02/25 16:20 BUN 12 mg/dL (8-23) 08/02/25 16:20 Creatinine 1.1 mg/dL (0.5-0.9) H 08/02/25 16:20 GFR Calculation 49.7 mL/min (90-130) L 08/02/25 16:20 Glucose 125 mg/dL (65-115) H 08/02/25 16:20 Calculated Osmolality 291 mOsm/kg (285-295) 08/02/25 16:20 Calcium 9.1 mg/dL (8.5-10.5) 08/02/25 16:20 Magnesium 2.0 mg/dL (1.7-2.3) 08/02/25 16:20 Total Bilirubin 0.5 mg/dL (0.15-1.2) 08/02/25 16:20 AST 15 U/L (0-32) 08/02/25 16:20 ALT 16 U/L (0-33) 08/02/25 16:20 Alkaline Phosphatase 156 U/L (35-105) H 08/02/25 16:20 Total Protein 7.0 g/dL (6.6-8.7) 08/02/25 16:20 Albumin 3.4 g/dL (3.5-5.2) L 08/02/25 16:20 Globulin 3.6 g/dL (1.3-4.6) 08/02/25 16:20 Lipase 20 U/L (13-60) 08/02/25 16:20 TSH 0.85 uIU/mL (0.27-4.20) 08/02/25 16:20 Urine Color Yellow (Yellow) 08/02/25 16:57 Urine Appearance Clear (CLEAR) 08/02/25 16:57 Urine pH 5.5 (5-7) 08/02/25 16:57 Ur Specific [place] 1.019 (1.005-1.030) 08/02/25 16:57 Urine Protein Trace (Negative) A 08/02/25 16:57 Urine Glucose (UA) Negative (Normal) 08/02/25 16:57 Urine Ketones Trace (Negative) 08/02/25 16:57 Urine Blood 2+ (Negative) A 08/02/25 16:57 Urine Nitrate Negative (Negative) 08/02/25 16:57 Urine Bilirubin Negative (Negative) 08/02/25 16:57 Urine Urobilinogen 0.2 mg/dL (Negative) 08/02/25 16:57 Ur Leukocyte Esterase 1+ (Negative) A 08/02/25 16:57 Urine RBC 51-100 /hpf (0-2) H 08/02/25 16:57 Urine WBC 21-50 /hpf (0-5) H 08/02/25 16:57 Ur Squamous Epith Cells 6-10 /hpf (0-5) 08/02/25 16:57 Amorphous Sediment Not Reportable 08/02/25 16:57 Urine Bacteria None seen /hpf (NONE) 08/02/25 16:57 Hyaline Casts 0.81 /lpf 08/02/25 16:57 All radiology interpretation(s) finalized by discharge Discharge Plan Discharge Condition: Stable Prescriptions: No Action cyanocobalamin (vitamin B-12) 1,000 mcg capsule 1,000 mcg PO DAILY albuterol sulfate 90 mcg/actuation HFA aerosol inhaler 2 puff INHALATION Q6H PRN (Reason: Respiratory Distress) atorvastatin 80 mg tablet 80 mg PO BEDTIME (DME) WALKER See Rx Instructions .Route .MEDSUPPLY Qty: 1 0RF Rx Instructions: As directed cholecalciferol (vitamin D3) 25 mcg (1,000 unit) capsule 25 mcg PO DAILY oxycodone 10 mg tablet 10 mg PO TID PRN (Reason: Pain) Mounjaro 15 mg/0.5 mL pen injector 15 mg SUBCUT Q7D Qty: 2 1RF Rx Instructions: Thursday (DME) blood sugar diagnostic Strip See Rx Instructions .Route Qty: 200 3RF Rx Instructions: As directed ([facility]) blood-glucose meter Kit See Rx Instructions .Route Qty: 1 0RF Rx Instructions: Check BS twice a day. ([facility]) Dexcom G7 Dampproofer Misc See Rx Instructions .Route Qty: 1 0RF Rx Instructions: As directed ([facility]) Dexcom G7 Sensor Device See Rx Instructions .ROUTE .MEDSUPPLY Qty: 9 1RF Rx Instructions: Change every 10days aspirin 81 mg Tablet,Delayed Release (Dr/Ec) 162 mg PO DAILY Qty: 60 0RF spironolactone 25 mg Tablet 25 mg PO DAILY Qty: 30 0RF pantoprazole [Protonix] 40 mg tablet,delayed release (DR/EC) 40 mg PO BID PRN (Reason: Acid Reflux) fluconazole 100 mg tablet 100 mg PO DAILY ketoconazole 2 % shampoo See Rx Instructions .ROUTE .COMPLEX Rx Instructions: USE 10 MLS DIRECTED TO WASH/SHAMPOO HAIR ONCE DAILY FOR ONE WEEK, THEN USE TWICE WEEKLY. alprazolam 0.5 mg Tablet 0.5 mg PO DAILY PRN (Reason: Anxiety) meclizine 25 mg Tablet 25 mg PO TID PRN (Reason: Dizziness) docusate sodium [Colace] 100 mg Capsule 200 mg PO BID PRN (Reason: Constipation) Nurtec ODT 75 mg Tablet,Disintegrating 75 mg PO DAILY PRN (Reason: Migraine Headache) cetirizine [Zyrtec] 10 mg Tablet 10 mg PO DAILY PRN (Reason: allergies) clobetasol 0.05 % cream 1 applic TOPICAL PRN PRN (Reason: psoriasis) amlodipine 2.5 mg tablet 2.5 mg PO BEDTIME trazodone 150 mg tablet 150 mg PO BEDTIME lidocaine 5 % adhesive patch,medicated 1 - 3 patch topical DAILY PRN (Reason: Pain) metoprolol tartrate 50 mg tablet 50 mg PO BID mupirocin 2 % Ointment 1 applic TOPICAL DAILY PRN (Reason: redness) ondansetron 4 mg tablet,disintegrating 4 mg PO Q6H PRN (Reason: Nausea) (DME) oxygen-air delivery systems Device MISCELLANEOUS aripiprazole 15 mg tablet 15 mg PO DAILY pregabalin 100 mg capsule 100 mg PO BID vilazodone 40 mg tablet 40 mg PO DAILY mirabegron [Myrbetriq] 25 mg tablet extended release 24 hr 25 mg PO DAILY Humulin R U-500 (Conc) Kwikpen 500 unit/mL (3 mL) insulin pen See Rx Instructions .ROUTE .COMPLEX PRN (Reason: high blood sugar) Rx Instructions: Inject 100-200mg tid as needed per sliding scale. 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
[2025-08-02 16:38] LABS: Hematocrit 38.6 % (36-47); Hemoglobin 12.00 g/dL (11.27-16.99); Mean Corpuscular HGB Conc 31.1 g/dL (30-55); Mean Corpuscular Hemoglobin 27.0 pg (27-33); Mean Corpuscular Volume 86.7 fl (85-98); Nucleated Red Blood Cells % 0 %; Platelet Count 205 10^3/cmm (157-399); Red Blood Count 4.45 10^6/uL (3.85-5.65); White Blood Count 17.61 10^3/uL (3.29-11.43)
[2025-08-02 17:06] LABS: Alanine Aminotransferase 16 U/L (0-33); Albumin Level 3.4 g/dL (3.5-5.2); Alkaline Phosphatase 156 U/L (35-105); Anion Gap 14.0 (5-19); Aspartate Amino Transferase 15 U/L (0-32); Blood Urea Nitrogen 12 mg/dL (8-23); Calcium 9.1 mg/dL (8.5-10.5); Carbon Dioxide 29 mmol/L (22-29); Chloride 101 mmol/L (98-107); Globulin 3.6 g/dL (1.3-4.6); Glucose 125 mg/dL (65-115); Lipase 20 U/L (13-60); Magnesium 2.0 mg/dL (1.7-2.3); Osmolality Calculated 291 mOsm/kg (285-295); Potassium 4.0 mmol/L (3.5-5.1); Sodium 140 mmol/L (136-145); Thyroid Stimulating Hormone 0.85 uIU/mL (0.27-4.20); Total Protein 7.0 g/dL (6.6-8.7)
--- NOTE | 2025-08-02 17:16 | PC.NURSE ---
Per pt and pt family member, pt wears 2L NC at home and when pt is sleeping pt wears bipap. Pt put on O2 2L NC, O2 sat improved from 90% to 95%.
[2025-08-02 17:38] LABS: Glucose Urine UA Negative (Normal); Nitrate Urine Negative (Negative); Specific Gravity, Urine 1.019 (1.005-1.030)
[2025-08-02 17:43] LABS: Add Urine Microscopic? YES
--- NOTE | 2025-08-02 17:46 | XRR_ITS ---
PROCEDURE INFORMATION: Exam: XR Chest Exam date and time: 08/02/2025 5:48 PM Age: 65 years old Clinical indication: Other: Weakness TECHNIQUE: Imaging protocol: Radiologic exam of the chest. Views: 1 view. COMPARISON: CR (CHEST, ) 06/30/2025 9:32 PM FINDINGS: Lungs: Unremarkable. No consolidation. Pleural spaces: Unremarkable. No pleural effusion. No pneumothorax. Heart/Mediastinum: Unremarkable. No cardiomegaly. Bones/joints: Unremarkable. XR/XR chest 1V portable [id number] IMPRESSION: No acute findings.
--- OUTSIDE RECORDS SUMMARY | 2025-08-02 18:18 | XMS_ITS | Clinical Summary ---
Author Organization [facility] Address [address] [place] [address] Care Team Providers Care Visual And Stock Associate Name Role Phone Leah Millard Primary [...] hyperglycemia, with long-term current use of insulin ([facility]) Check blood sugars TID. Meter that is [...] unspecified vessel or lesion type, unspecified whether andreafski or transplanted heart Take 1 Tablet (30 mg) by mouth daily in the morning. 90 Tablet 3 08/13/20 20 Active cyanocobalamin 1,000 mcg TabletIndications: Vitamin B12 deficiency (non anemic) Take 1 Tablet (1,000 mcg) by mouth daily. 90 Tablet 3 08/13/20 20 Active montelukast (SINGULAIR) 10 mg tabletIndications: Chronic obstructive pulmonary disease, unspecified COPD type ([facility]) Take 1 Tablet (10 mg) by mouth [...] Anxiety. 30 Tablet 10/09/19 21 Active Insulin [place], Disposable, 32 gauge x 5/16 NeedleIndications: Type [...] disease, with long-term current use of insulin ([facility]) Inject 30 units SQ two times daily 15 mL 2 01/29/20 Active dapagliflozin (Farxiga) 10 mg TabletIndications: Elevated blood sugar,Type 2 diabetes mellitus with stage 3a chronic kidney disease, with long-term current use of insulin ([facility]) Take 1 Tablet (10 mg) by mouth daily. 30 Tablet 3 01/29/20 Active atorvastatin (LIPITOR) 40 mg tabletIndications: Mixed hyperlipidemia Take 1 Tablet (40 mg) by mouth daily. 90 Tablet 4 01/29/20 Active insulin lispro (HumaLOG KwikPen Insulin) 200 unit/mL pen syringeIndications :Type 2 diabetes mellitus with hyperglycemia, with long-term current use of insulin ([facility]),Type 2 diabetes mellitus with other circulatory complication, with long-term current use of insulin ([facility]) Inject subcutaneous 3 times daily PRN (sliding [...] hyperglycemia, with long-term current use of insulin ([facility]) Take 1 Tablet (50 mg) by mouth [...] Chronic obstructive pulmonary disease 05/29/2015 Atherosclerosis of andreafski co ronary artery of andreafski heart without angina pectoris 05/29/2015 Diabetes mellitus 05/29/2015 Resolved Problems Problem Noted Date Diagnosed Date Resolved Date Stable angina 11/02/2019 01/01/2020 Morbid obesity with body mas s index of 40.0-49.9 11/02/2019 11/08/2020 Tobacco use 11/02/2019 01/19/2021 [place] (myocardial infarction) 04/09/2016 0 11/02/2019 Immunizations Immunization [...] on file Legal 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 Gender Identity Not on file Sexual Orientation [...] 10/24/2020 HEMOGLOBIN A1C Routine 10/09/2020 12:19 PM TURNER MACHINE OPERATOR Type 2 diabetes mellitus with other circulatory complication, with long-term current use of insulin ([facility]) MAMMO SCREEN BILAT W OR WO CAD Routine 01/05/2019 Screening for breast cancer HM DIABETES FOOT EXAM Routine 12/27/2018 MICROALBUMIN/CREATI NINE RATIO, RANDOM UR Routine 10/05/2018 1:32 PM TURNER MACHINE OPERATOR Type 2 diabetes mellitus with hyperglycemia, with long-term current use of insulin ([facility]) from Last 3 Months or Most Recently Relevant to Health Maintenance Results * LIPID PANEL (10/24/2020) ABSTRACTED CHOLESTEROL 138 EXTERNAL LAB ABSTRACTED TRIGLYCERIDE 172 EXTERNAL LAB ABSTRACTED HDL 33 EXTERNAL LAB ABSTRACTED LDL CALCULATED 71 EXTERNAL LAB CHOLESTEROL EXTERNAL LAB TRIGLYCERIDE EXTERNAL LAB HDL EXTERNAL LAB LDL CALCULATED EXTERNAL LAB Blood 10/24/2020 us Abstract Spg Provider CHEMISTRY ORDERABLES Final Result Performing Organization Address City/[facility]/ZIP Co de Phone Number EXTERNAL LAB * HEMOGLOBIN A1C (10/09/2020 12:19 PM TURNER MACHINE OPERATOR) HEMOGLOBIN A1C 5.3 See Comment % 10/09/2020 8:27 PM TURNER MACHINE OPERATOR [facility] EST. AVG GLUCOSE, A1C 105 mg/dL 10/09/2020 8:27 PM TURNER MACHINE OPERATOR [facility] Blood Venipuncture / Unknown 10/09/2020 12:19 PM TURNER MACHINE OPERATOR 10/09/2020 8:09 PM TURNER MACHINE OPERATOR Narrative [facility] - 10/09/2020 8:27 PM TURNER MACHINE OPERATOR HGB A1C INTERPRETATION NORMAL: <5.7% PRE-DIABETES: 5.7 - 6.4% DIABETES: 6.5% OR GREATER Falsely low A1C measurements can occur when: 1. Anemia and/or hemolytic anemia is present. 2. Hemoglobin variants present. 3. Renal failure. 4. Transfusion of blood product in the last 120 days. We recommend ordering a fructosamine test([id number]) to more accurately assess glycemic status if any of the above conditions are present. Leah Millard DO CHEMISTRY ORDERABLES Final Result Performing Organization Address City/[facility]/ZIP Co de Phone Number [facility] CLIA# [id number] [address] [place] [address] * MAMMO SCREEN BILAT W OR WO CAD (01/05/2019) Anatomical Region Laterality Modality Breast Bilateral Mammography Marleni COYLEP MAMMO ORDERABLES Final R esult * HM DIABETES FOOT EXAM (12/27/2018) Marleni COYLEP HEALTH MAINTENANCE Final Result * (ABNORMAL) MICROALBUMIN/CREATININE RATIO, RANDOM UR (10/05/2018 1:32 PM TURNER MACHINE OPERATOR) MICROALBUMIN, URINE <1.2 No Reference Range mg/dL 10/05/2018 9:36 PM [facility] CREATININE, URINE 20.2(L) 29.0 - 226.0 mg/dL 10/05/2018 9:36 PM [facility] Comment: Reference Range varies with fluid intake and diet. Urine URINE SPECIMEN OBTAINED BY CLEAN CATCH PROCEDURE / Unknown Collection / Unknown 10/05/2018 1:32 PM TURNER MACHINE OPERATOR 10/05/2018 7:59 PM TURNER MACHINE OPERATOR Narrative [facility] - 10/05/2018 9:36 PM TURNER MACHINE OPERATOR Condition Microalbumin/Creat ratio Normal Males <17 Normal Females <25 Microalbuminuria Males 17-299 Microalbuminuria Females 25-299 Overt proteinuria >=300 Unable to calculate urine microalbumin/creatinine ratio because urine microalbumin result is outside of reportable range. Marleni Zimmer [facility] URINE ORDERABLES Final R esult [facility] CLIA# [id number] [address] [place] [id number] from Last 3 Months or Most Recently Relevant to Health Maintenance Insurance * Guarantor: Melissa Kinney Account Type Relation to Patient Date of Phone Billing Address Personal/Family Self [address] [place] [id number] [place] [address] MEDICAID [place] Care Teams Visual And Stock Associate Relationship Specialty Start Date End Date Leah Millard DO [address] [place] [id number] PCP - General Family Practice 10/05/18
--- OUTSIDE RECORDS SUMMARY | 2025-08-02 18:18 | XMS_ITS | Clinical Summary ---
Author Organization [facility] Address [address] [facility] [place] [address] Care Team Providers Care Community Liaison Name Role Phone VeniceAminataLeah Anne [facility] Primary Care Provider [phone] Allergies Active Allergy Reactions Criticality Noted Date [...] 4 023 Active Blood-Glucose Meter,Continuous (Dexcom G7 Cheese Cutter) Use to test blood sugars continuously. She has to do multiple shots of insulin daily and hard to control 1 Each 023 Active power wheelchairIndicati ons:Chronic midline low back pain with right-sided sciatica,Type 2 diabetes mellitus with stage 3a chronic kidney disease, with long-term current use of insulin (CMS/HCC),Essentia l hypertension,Essen tial tremor,Atheroscler osis of [place] coronary artery of [place] heart without angina pectoris,Multiple sclerosis,History of CVA [...] mouth daily. 90 Tablet 3 025 Active portable oxygenIndications: Panlobular emphysema (CMS/HCC),Chronic respiratory failure with hypoxia and hypercapnia (CMS/HCC) Face to Face completed within 30 days: yes Length of Need: 99 months By: Nasal Cannula Continuously at 3 L/min. 1 Each Active ARIPiprazole (ABILIFY) 15 mg tablet Take [...] AFFECTED AREA TWICE DAILY 45 Gram 3 Active spironolactone (ALDACTONE) 25 mg tabletIndications: Essential hypertension Take 1 Tablet (25 mg) by mouth daily. 100 Tablet 3 Active Blood-Glucose Sensor (Dexcom G7 Sensor) Device USE DIRECTED AND CHANGE EVERY 10 DAYS 3 Each 025 Active ketoconazole (NIZORAL) 2 % Shampoo Use 10 mL to wash/shampoo 120 mL Active oxyCODONE (ROXICODONE) 10 mg tabletIndications: Chronic midline low back pain with right-sided sciatica Take 1 Tablet (10 mg) by mouth 3 times daily as needed for Pain, Moderate. Max Daily Amount: 30 mg 90 Tablet Active pregabalin (LYRICA) 100 mg Capsule Take 1 capsule by mouth twice daily 60 Capsule 5 Active lidocaine (LIDODERM) 5 % Adhesive Patch, Medicated USE 1-3 PATCHES TOPICALLY TO AFFECTED AREA ONCE EVERY 24 HOURS 90 Patch 2 Active estradioL (ESTRACE) 0.01% (0.1 mg/g) vaginal cream Insert 1 Gram vaginally twice weekly. Active methenamine hippurate (HIPREX) 1 gram Tablet Take 1 Gram by mouth 2 times daily. 2025 Active nitrofurantoin (MACROBID) 100 mg capsule Take 1 Capsule (100 mg) by mouth 2 times daily. 60 Capsule 1 025 Active pregabalin (LYRICA) 100 mg Capsule Take 1 Capsule (100 mg) by mouth 2 times daily. 60 Capsule 5 025 2024 Discontinued lidocaine (LIDODERM) 5 % Adhesive Patch, Medicated USE 1 TO 3 PATCHES EXTERNALLY TO AFFECTED AREA EVERY 24 HOURS 90 Patch 2 025 2024 Discontinued oxyCODONE (ROXICODONE) 10 mg tabletIndications: Chronic midline low back pain with right-sided sciatica Take 1 Tablet (10 mg) by mouth 3 times daily as needed for Pain, Moderate. Max Daily Amount: 30 mg 90 Tablet 025 2024 Discontinued(R eorder) Active Problems Problem Noted Date Diagnosed Date Severe obesity (BMI 35.0-39.9) with comorbidity 02/14/2025 Chronic midline low back pain with right-sided s ciatica 01/21/2023 Chronic respiratory failure with hypoxia and hyp ercapnia 01/21/2023 Recurrent UTI 09/07/2021 Abnormality of gait and mobility 04/10/2021 History of kidney stones 04/10/2021 History of COVID-19 04/10/2021 OAB (overactive bladder) 03/13/2021 History of [...] syndrome 06/25/2015 History of colon cancer 05/29/2015 Type 2 diabetes mellitus wit h diabetic polyneuropathy, with long-term current use of insulin 05/29/2015 Atherosclerosis of [place] co ronary artery of [place] heart without angina pectoris 05/29/2015 Resolved Problems Problem Noted Date Diagnosed Date Resolved Date Sepsis due to Escherichia co li without acute organ dysfunction 07/05/2025 07/12/2025 Stable angina 11/02/2019 01/01/2020 Tobacco use 11/02/2019 01/19/2021 MD (myocardial infarction) 04/09/2016 0 11/02/2019 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 05/29/2015 10/17/2024 Encounters Date Type Department Care Team Description 07/28/2025 Results Follow-Up [facility] [address] [facility] [place] [address] Leah Millard DO URINE CULTURE 07/26/2025 4:20 PM SHAKE MAKER Office Visit [facility] [address] [facility] [place] [address] Leah Millard DO Recurrent UTI (Primary Dx) 07/23/2025 Refill [facility] [address] [facility] [address] Leah Millard DO 07/19/2025 Refill [facility] [address] [facility] [address] Leah Millard DO 07/19/2025 Telephone [facility] [address] [facility] [address] Leah Millard DO Remote Monitoring ; Patient Communication 07/14/2025 Telephone [facility] Urology [address] [place] [phone] Provider, Abstract urology referral appointment 07/11/2025 Telephone [facility] [address] [place] [phone] Leah Millard, Needs Orders Written 07/07/2025 Results Follow-Up [facility] [address] [place] [address] Nighat Shrape, HEADER SETUP OPERATOR CBC WITH DIFFERENTIAL, COMPREHENSIVE METABOLIC PANEL 07/05/2025 11:20 AM CDT Office Visit [facility] [address] [place] [address] Nighat Sharpe, HEADER SETUP OPERATOR Hospital discharge follow-up (Primary Dx); Sepsis due to Escherichia coli without acute organ dysfunction (CMS/HCC); Recurrent UTI; Frail elderly; Chronic midline low back pain with right-sided sciatica 07/05/2025 Orders Only [facility] [address] [place] [address] Nighat Sharpe, HEADER SETUP OPERATOR Chronic midline low back pain with right-sided sciatica 07/04/2025 Results Follow-Up [facility] [address] [place] [address] Leah Millard, URINE CULTURE 07/04/2025 Telephone [facility] [address] [place] [address] Leah Millard, Patient Communication 07/03/2025 Medication Prior Auth Encounter [facility] Prescription Management Dept [facility] [address] [place], [place] [phone] Crystal Dyson, PHARMACIST 07/03/2025 Medication Prior Auth Encounter [facility] [address] [place] [address] Leah Millard DO 07/03/2025 Orders Only [facility] Information Management [place] [address] [place] [address] Provider, Abstract 06/29/2025 4:20 PM CDT Office Visit [facility] [address] [place] [address] Leah Millard DO Need for influenza vaccination (Primary Dx); Recurrent UTI; Severe obesity (BMI 35.0-39.9) with comorbidity ([facility]); Type 2 diabetes mellitus with diabetic polyneuropathy, with long-term current use of insulin ([facility]); Multiple sclerosis; Chronic respiratory failure with hypoxia and hypercapnia ([facility]); Abnormality of gait and mobility; Mixed hyperlipidemia; Chronic midline low back pain with right-sided sciatica; Essential tremor; Bilateral deafness; Obstructive sleep apnea syndrome; Essential hypertension; Atherosclerosis of [place] coronary artery of [place] heart without angina pectoris; Primary insomnia; History of non-ST elevation myocardial infarction (NSTEMI); History of CVA with residual deficit; History of colon cancer; Generalized anxiety disorder 06/21/2025 Refill [facility] [address] [place] [address] [place], December, HEADER SETUP OPERATOR OAB (overactive bladder) 06/12/2025 Refill [facility] [address] [place] [address] Leah Millard DO 06/02/2025 Orders Only [facility] [address] [place] [address] Leah Millard DO Recurrent UTI (Primary Dx) 06/02/2025 Results Follow-Up [facility] [address] [place] [address] Leah Millard DO POC URINALYSIS DIPSTICK AUTOMATED 06/02/2025 Orders Only [facility] [address] [place] [address] Leah Millard DO 05/31/2025 9:20 AM CDT Office Visit [facility] [address] [place] [address] Leah Millard DO Multiple sclerosis (Primary Dx); Recurrent UTI; Acute cystitis without hematuria; Essential hypertension; Atherosclerosis of [place] coronary artery of [place] heart without angina pectoris; Chronic respiratory failure with hypoxia and hypercapnia ([facility]); Mixed hyperlipidemia; History of non-ST elevation myocardial infarction (NSTEMI); Generalized anxiety disorder; UTI symptoms; Severe obesity (BMI 35.0-39.9) with comorbidity ([facility]); Obstructive sleep apnea syndrome; Type 2 diabetes mellitus with diabetic polyneuropathy, with long-term current use of insulin ([facility]); Abnormality of gait and mobility; OAB (overactive bladder); Chronic midline low back pain with right-sided sciatica; Degenerative disc disease, cervical; Bilateral deafness; Essential tremor; History of colon cancer; History of kidney stones; Primary insomnia 05/27/2025 Refill [facility] [address] [place] [address] Leah Millard DO Chronic midline low back pain with right-sided sciatica 05/23/2025 External Device Data ST[place] ABSTRACTION Provider, Abstract 05/22/2025 Orders Only [facility] [address] [place] [address] Provider, Abstract 05/16/2025 External Device Data ST[place] ABSTRACTION Provider, Abstract 05/16/2025 External Device Data ST[place] ABSTRACTION Provider, Abstract 05/04/2025 Refill [facility] [address] [place] [address] Gaxiola, December, HEADER SETUP OPERATOR Recurrent UTI 05/04/2025 Refill [facility] [address] [place] [address] Leah Millard, DO 05/02/2025 Medication Prior Auth Encounter [facility] [address] [facility] [place] [phone] Karen Rodrigues from Last 3 Months Immunizations Immunization Administration Dates Next Due (PNEUMOVAX 23)(50 YRS UP) PN EUMOCOCCAL POLYSACCHARIDE (PPV23) 0.5 ML, IM 12/27/2018 (PREVNAR 13)(6 WKS UP) PNEUM OCOCCAL CONJUGATE (PCV13) 0.5 ML, IM 04/09/2016 (VARZIG) VARICELLA ZOSTER IM MUNE GLOBULIN 125 IU/1.2 ML, IM 06/30/2014 INFLUENZA VACCINE HIGH DOSE TRIVALENT SPLIT VIRUS, (65 YR UP), 0.5ML (PF), IM 07/26/2025 INFLUENZA VACCINE QUADRIVALE NT 6 MOS UP [...] Brother 3 Martin Frey[place] Cancer Father Rob Frey[place] Colon Cancer Father Rob Frey[place] Heart Disease Father Rob Frey[place] Hypertension Father Rob Frey[place]uth Other Father Rob Freyermuth Parkinson di sease Depression Mother Margi Gunter Mental illness Mother Margi Gunter Other Mother Margi Gunter Parkison disease Colon Cancer Other SELF Relation Name Status Comments Brother 1 Max Frey[place]uth Alive Brother 2 Cj Frey[place]uth Brother 3 Martin Frey[place]uth Father Rob F[place] Mother Margi Frey[place]uth Alive Other SELF Alive Social History Tobacco [...] on file Legal Sex Female 6:02 AM SHAKE MAKER Gender Identity Not on file Sexual Orientation Not on file Last Filed Vital Signs Vital Sign Reading Time Taken Comments Blood Pressure 122/62 07/26/2025 4:21 PM SHAKE MAKER Pulse 73 07/26/2025 4:21 PM SHAKE MAKER Temperature 36.2 C (97.2 F) 07/26/2025 4:21 PM SHAKE MAKER Respiratory Rate 17 07/05/2025 11:29 AM CDT Oxygen Saturation 95% 07/26/2025 4:21 PM SHAKE MAKER Inhaled Oxygen Concentration - - Weight 110.5 kg (243 lb 8 oz) 07/26/2025 4:21 PM SHAKE MAKER Height 167.6 cm (5' 6 ) 07/26/2025 4:21 PM SHAKE MAKER s tated Body Mass Index 39.3 07/26/2025 4:21 PM SHAKE MAKER Plan of Treatment Upcoming Encounters Date Type Department Care Team (Late st Contact Info) Description 08/30/2025 2:40 PM SHAKE MAKER Office Visit [facility] [address] [place] [address] Leah Millard, DO [address] [place] [address] 09/15/2025 11:00 AM SHAKE MAKER Office Visit [facility] Urology [address] [place] [address] Radha Navarro FNP [address] [address] 11/28/2025 10:40 AM CDT Office Visit [facility] [address] [facility] [place] [address] Leah Millard, DO [address] [place] [address] Health Maintenance Due Date Last Done Comments DTAP/TDAP/TD VACCINES (1 - Tdap) 1978 Lung Cancer Screening 2009 RSV VACCINE (60+ or ) (1 - Risk 50-74 years 1-dose series) 2009 PNEUMOCOCCAL VACCINE 50+ YEA RS (3 of 3 - PCV20 or PCV21) 12/28/2023 12/27/2018, 04/09/2016 ZOSTER VACCINE (3 of 3) 02/17/2024 12/23/2023, 06/30 OSTEOPOROSIS SCREENING 2024 BREAST CANCER SCREENING 03/23/2025 03/23/20, 01/05/2019, 01/05/2019 COVID-19 Vaccine (4 - 2024-2 6 season) 2025 08/13/2021, 02/04/2021, 01/07/2021 Traditional Medicare (ACO) A nnual Wellness Visit 10/12/2025 10/11/2024 DIABETES MICROALBUMIN ANNUAL SCREEN 11/08/2025 11/08/2024, 03/02/2024, 10/05/2018 DIABETES HBA1C Q 6 MONTHS 11/28/20252024, 10/11/2024, 05/25/2024, Additional history exists DIABETES ANNUAL RETINAL EXAM 12/20/202504/2025, 07/06/2024, 01/22/2021 DIABETES ANNUAL FOOT EXAM 05/31/20262024, 12/05/2021, 12/12/2020, Additional history exists DIABETES: A1C (Auto Order) 05/31/202605/31, 10/11/2024, 05/25/2024, Additional history exists LDL CHOLESTEROL ANNUAL 05/31/2026 , 10/11/2024, 05/25/2024, Additional history exists COLORECTAL SCREENING Discontinued 04/04/2020 Colorectal Cancer Screening Discontinued Medicare Advantage (OR) Preventative Visit/Annual Wellness Visit Completed 10/11/2024 [facility] uACR (Auto Order) Completed 02/14/2025 , 11/08/2024, 03/02/2024, Additional history exists KHE eGFR (Auto Order) Completed 07/05/2025 , 07/03/2025, 06/30/2025, Additional history exists INFLUENZA VACCINE Completed 07/26/2025, , 06/04/2023, Additional history exists FIT-DNA Q 3 years Discontinued FIT/FOBT Q 1 year Discontinued Flex Sig/CT Colonography Q 5 years Discontinued Procedures Procedure Name Priority Date/Time Associated Diagnosis Comments URINE CULTURE Routine 07/26/2025 4:55 PM SHAKE MAKER Recurrent UTI POC URINALYSIS DIPSTICK NON AUTOMATED Routine 07/26/2025 4:00 PM SHAKE MAKER Recurrent UTI COMPREHENSIVE METABOLIC PANEL Routine 07/05/2025 11:49 AM CDT Hospital discharge follow-up Sepsis due to Escherichia coli without acute organ dysfunction ([facility]/HCC) Recurrent UTI CBC WITH DIFFERENTIAL Routine 07/05/2025 11:49 AM CDT Hospital discharge follow-up Sepsis due to Escherichia coli without acute organ dysfunction (CMS/[facility]) Recurrent UTI COMPREHENSIVE METABOLIC PANEL Routine 07/03/2025 2:09 PM CDT COMPREHENSIVE METABOLIC PANEL Routine 06/30/2025 11:37 AM CDT URINE CULTURE Routine 06/29/2025 5:02 PM CDT Recurrent UTI POC URINALYSIS DIPSTICK AUTOMATED Routine 06/29/2025 4:20 PM CDT Recurrent UTI URINE CULTURE Routine 06/12/2025 11:34 AM CDT Recurrent UTI POC URINALYSIS DIPSTICK AUTOMATED Routine 06/12/2025 11:10 AM CDT Recurrent UTI CBC WITH DIFFERENTIAL Routine 05/31/2025 10:39 AM CDT Recurrent UTI Acute cystitis without hematuria Essential hypertension Atherosclerosis of [place] coronary artery of [place] heart without angina pectoris Chronic respiratory failure [...] cystitis without hematuria Essential hypertension Atherosclerosis of [place] coronary artery of [place] heart without angina pectoris Chronic respiratory failure [...] cystitis without hematuria Essential hypertension Atherosclerosis of [place] coronary artery of [place] heart without angina pectoris Chronic respiratory failure [...] cystitis without hematuria Essential hypertension Atherosclerosis of [place] coronary artery of [place] heart without angina pectoris Chronic respiratory failure with hypoxia and hypercapnia (CMS/HCC) Mixed hyperlipidemia History of non-ST elevation myocardial infarction (NSTEMI) Generalized anxiety disorder UTI symptoms Severe obesity (BMI 35.0-39.9) with comorbidity (CMS/HCC) Obstructive sleep apnea syndrome Type 2 diabetes mellitus with diabetic polyneuropathy, with long-term current use of insulin ([facility]) HEMOGLOBIN A1C Routine 05/31/2025 10:39 AM CDT Recurrent UTI Acute cystitis without hematuria Essential hypertension Atherosclerosis of [place] coronary artery of [place] heart without angina pectoris Chronic respiratory failure with hypoxia and hypercapnia (CMS/HCC) Mixed hyperlipidemia History of non-ST elevation myocardial infarction (NSTEMI) Generalized anxiety disorder UTI symptoms Severe obesity (BMI 35.0-39.9) with comorbidity (CMS/HCC) Obstructive sleep apnea syndrome Type 2 diabetes mellitus with diabetic polyneuropathy, with long-term current use of insulin ([facility]) POC URINALYSIS DIPSTICK AUTOMATED Routine 05/31/2025 10:36 AM CDT Recurrent UTI Acute cystitis without hematuria Essential hypertension Atherosclerosis of [place] coronary artery of [place] heart without angina pectoris Chronic respiratory failure with hypoxia and hypercapnia (CMS/HCC) Mixed hyperlipidemia History of non-ST elevation myocardial infarction (NSTEMI) Generalized anxiety disorder UTI symptoms Severe obesity (BMI 35.0-39.9) with comorbidity ([facility]/HCC) Obstructive sleep apnea syndrome URINE CULTURE Routine 05/31/2025 10:33 AM CDT Recurrent UTI COMPREHENSIVE METABOLIC PANEL Routine 05/21/2025 12:50 PM CDT DIABETES EYE EXAM Routine 12/20/2024 10:14 AM CDT MICROALBUMIN/CREATININ E RATIO, RANDOM UR Routine 11/08/2024 2:52 PM SHAKE MAKER Type 2 diabetes mellitus with stage 3a chronic kidney disease, with long-term current use of insulin ([facility]) MAMMO 3D BON SCREEN BILAT W OR WO CAD Routine 03/23/2024 9:51 AM CDT Screening mammogram, encounter for ENDOSCOPY, COLON, SCREENING 04/04/2020 12:00 AM CDT DIABETES FOOT EXAM 12/27/2018 12:00 AM CDT from Last 3 Months or Most Recently Relevant to Health Maintenance Results * (ABNORMAL) URINE CULTURE (07/26/2025 4:55 PM SHAKE MAKER) Only the most recent of4 resultswithin the time period is included. URINE CULTURE SEE NOTE(A) [facility] Comment: CULTURE, URINE, ROUTINE Micro Number: [id number] Test Status: Final Specimen Source: Urine, clean [...] cefuroxime, cephalexin and loracarbef. Test Performed at: [facility] [id number] [place] [address] Funmi Medellin MD Urine URINE SPECIMEN OBTAINED BY CLEAN CATCH PROCEDURE / Unknown 07/26/2025 4:55 PM SHAKE MAKER 07/27/2025 1:12 AM SHAKE MAKER us Leah Millard DO MICROBIOLOGY - GENERAL ORDE JACK Final Result [facility] [phone] [facility] [id number] [place] [address] * (ABNORMAL) POC URINALYSIS DIPSTICK NON AUTOMATED (07/26/2025 4:00 PM SHAKE MAKER) COLOR UA POC Yellow Pale to Dark Yellow [facility] CLARITY UA POC Clear Clear, Other [facility] GLUCOSE UA POC Negative Negative, Normal [facility] BILIRUBIN UA POC Negative Negative [facility] KETONES UA POC Negative Negative [facility] SPECIFIC GRAVITY UA POC >=1.030 1.000 - 1.[address] [facility] BLOOD UA POC 1+(A) Negative [facility] C LINIC [facility] PH UA POC 6.0 5.0 - 8.0 [facility] CLIN IC [facility] PROTEIN UA POC 1+(A) Negative [facility] UROBILINOGEN UA POC 0.2 <2.0 mg/dL [facility] NITRITE UA POC Positive(A) Negative [facility] LEUKOCYTE ESTERASE UA POC 3+(A) Negative [facility] KIT LOT NUMBER POC [phone] [facility] KIT EXP DATE POC 03/13/2026 [facility] Urine 07/26/2025 4:00 PM SHAKE MAKER us Leah Millard DO POINT OF CARE TESTING Final Result [facility] CLIA# [id number] [place] [address] * (ABNORMAL) CBC WITH DIFFERENTIAL (07/05/2025 11:49 AM CDT) Only the most recent of2 resultswithin the time period is included. WBC 12.9(H) 3.8 - 10.8 Thousand/u L [facility] RBC 4.38 3.80 - 5.10 Million/uL [facility] HEMOGLOBIN 11.7 11.7 - 15.5 g/dL [facility] HEMATOCRIT 38.2 35.0 - 45.0 % [facility] MCV 87.2 80.0 - 100.0 fL [facility] MCH 26.7(L) 27.0 - 33.0 pg [facility] MCHC 30.6(L) 32.0 - 36.0 g/dL [facility] Comment: For adults, a slight decrease in the calculated MCHC value (in the range of 30 to 32 g/dL) is most likely not clinically significant; however, it should be interpreted with caution in correlation with other red cell parameters and the patient's clinical condition. RDW 13.1 11.0 - 15.0 % [facility] PLATELETS 296 140 - 400 Thousand/u L [facility] MPV 10.1 7.5 - 12.5 fL [facility] NEUTROPHIL ABSOLUTE 7,946(H) 1,500 - 7,800 cells/uL [facility] LYMPHOCYTE ABSOLUTE 3,883 850 - 3,900 cells/uL [facility] MONOCYTE ABSOLUTE 735 200 - 950 cells/uL [facility] EOSINOPHIL ABSOLUTE 245 15 - 500 cells/uL [facility] BASOPHILS ABSOLUTE 90 0 - 200 cells/uL [facility] NEUTROPHIL 61.6 % [facility] LYMPHOCYTES 30.1 % [facility] MONOCYTE 5.7 % [facility] EOSINOPHILS 1.9 % [facility] BASOPHILS 0.7 % [facility] Comment: FASTING:UNKNOWN FASTING: UNKNOWN Test Performed at: [facility] [address] [place] [address] Funmi Medellin MD Blood 07/05/2025 11:4 9 AM CDT 07/05/2025 11:49 AM CDT Nighat Sharpe HEADER SETUP OPERATOR HEMATOLOGY ORDERABLES Shira l Result [facility] [phone] [facility] [address] [place] [address] * (ABNORMAL) COMPREHENSIVE METABOLIC PANEL (07/05/2025 11:49 AM CDT) Only the most recent of5 resultswithin the time period is included. GLUCOSE 78 65 - 99 mg/dL [facility] Comment: Fasting reference interval BUN 10 7 - 25 mg/dL [facility] CREATININE 0.97 0.50 - 1.05 mg/dL [facility] GFR 64 > OR = 60 mL/min/1. 73m2 [facility] BUN/CREAT RATIO SEE NOTE: (calc) [facility] Comment: Not Reported: BUN and Creatinine are within reference range. SODIUM 140 135 - 146 mmol/L [facility] POTASSIUM 4.3 3.5 - 5.3 mmol/L [facility] CHLORIDE 100 98 - 110 mmol/L [facility] CO2 33(H) 20 - 32 mmol/L [facility] CALCIUM 9.0 8.6 - 10.4 mg/dL [facility] TOTAL PROTEIN 6.5 6.1 - 8.1 g/dL [facility] ALBUMIN 3.2(L) 3.6 - 5.1 g/dL [facility] GLOBULIN 3.3 1.9 - 3.7 g/dL (calc) [facility] ALBUMIN/GLOBULIN RATIO 1.0 1.0 - 2.5 (calc) [facility] BILIRUBIN TOTAL 0.4 0.2 - 1.2 mg/dL [facility] ALKALINE PHOSPHATASE 139 37 - 153 U/L [facility] AST 28 10 - 35 U/L [facility] ALT 22 6 - 29 U/L [facility] Comment: FASTING:UNKNOWN FASTING: UNKNOWN Test Performed at: [facility] [address] [id number] Funmi Medellin MD Blood 07/05/2025 11:4 9 AM CDT 07/05/2025 11:49 AM CDT Nighat DUMONT CHEMISTRY ORDERABLES Final Result [facility] [phone] [facility] [id number] [place] [phone] * (ABNORMAL) POC URINALYSIS DIPSTICK AUTOMATED (06/29/2025 4:20 PM CDT) Only the most recent of3 resultswithin the time period is included. COLOR UA POC Yellow Pale to Dark Yellow [facility] CLARITY UA POC Cloudy(A) Clear, Other [facility] GLUCOSE UA POC Negative Negative, Normal [facility] [facility] BIL[facility] UA POC Negative Negative [facility] KETONES UA POC Negative Negative [facility] SPECIFIC GRAVITY UA POC 1.020 1.000 - 1.[address] [facility] BLOOD UA POC 2+(A) Negative [facility] C LINIC [facility] PH UA POC 6.0 5.0 - 8.0 [facility] IC [facility] PROTEIN UA POC 3+(A) Negative [facility] UROBILINOGEN UA POC 0.2 <2.0 mg/dL [facility] NITRITE UA POC Positive(A) Negative [facility] LEUKOCYTE ESTERASE UA POC 3+(A) Negative [facility] KIT LOT NUMBER POC [phone] [facility] KIT EXP DATE POC 03/13/2026 [facility] Urine 06/29/2025 4:20 PM CDT us Leah Millard DO POINT OF CARE TESTING Final Result [facility] CLIA# [id number] [address] [place] [id number] * TSH (05/31/2025 10:39 AM CDT) Pathologist [facility] TSH 0.68 0.40 - 4.50 mIU/L [facility] Comment: Test Performed at: [facility] [address] [place] [address] Funmi Medellin MD Blood 05/31/2025 10:3 9 AM CDT 06/01/2025 2:39 AM CDT us Leha L Venice DO CHEMISTRY ORDERABLES Final Result [facility] [phone] [facility] [address] [place] [address] * (ABNORMAL) HEMOGLOBIN A1C (05/31/2025 10:39 AM CDT) [facility] HEMOGLOBIN A1C 6.5(H) <5.7 % [facility] Comment: Test Performed at: [facility] [address] [place] [address] Funmi Medellin MD Blood 05/31/2025 10:3 9 AM CDT 06/01/2025 2:39 AM CDT us Leah L Venice DO CHEMISTRY ORDERABLES Final Result [facility] [phone] [facility] [address] [facility] [place] [address] * (ABNORMAL) LIPID PANEL (05/31/2025 10:39 AM CDT) CHOLESTEROL 113 <200 mg/dL [facility] HDL 28(L) > OR = 50 mg/dL [facility] TRIGLYCERIDE 215(H) <150 mg/dL [facility] Comment: If a non-fasting specimen was collected, consider repeat triglyceride testing on a fasting specimen if clinically indicated. Linda et al. J. of Clin. Lipidol. 2015;9:129-169. LDL CALCULATED 57 mg/dL (calc) [facility] Comment: Reference range: <100 Desirable range <100 mg/dL for primary prevention; <70 mg/dL for patients with CHD or diabetic patients with > or = 2 CHD risk factors. LDL-C is now calculated using the Jeffrey-Judah calculation, which is a validated novel method providing better accuracy than the Friedewald equation in the estimation of LDL-C. Jeffrey SS et al. BRIANNA. 2013;310(19): 1565-3493 (http://education.Errplane/faq/VGX836) CHOL/HDL RATIO 4.0 <5.0 (calc) [facility] NON-HDL CHOLESTEROL 85 <130 mg/dL (calc) [facility] Comment: For patients with diabetes plus 1 major ASCVD risk factor, treating to a non-HDL-C goal of <100 mg/dL (LDL-C of <70 mg/dL) is considered a therapeutic option. Test Performed at: [facility] [address] [facility] [place] [address] Funmi Medellin MD Blood 05/31/2025 10:3 9 AM CDT 06/01/2025 2:39 AM CDT us Leah Millard DO CHEMISTRY ORDERABLES Final Result [facility] [phone] [facility] [address] [facility] [place] [address] * DIABETES EYE EXAM (12/20/2024 10:14 AM CDT) us Abstract Provider HEALTH MAINTENANCE Edited Resu lt - Final * MICROALBUMIN/CREATININE RATIO, RANDOM UR (11/08/2024 2:52 PM SHAKE MAKER) Creatinine, Urine 135 20 - 275 mg/dL [...] within a diagnostic category. Test Performed at: [facility] [address] [place] [address] Funmi Medellin MD Urine URINE SPECIMEN OBTAINED BY CLEAN CATCH PROCEDURE / Unknown 11/08/2024 2:52 PM SHAKE MAKER 11/09/2024 5:16 AM SHAKE MAKER Leah Millard DO URINE ORDERABLES Final Resu [facility] [phone] [facility] [address] [place] [address] * MAMMO 3D BNO SCREEN BILAT W OR WO CAD (03/23/2024 [...] or areas of architectural distortion. Raiviktoriaalisia Sharpe HEADER SETUP OPERATOR MAMMO ORDERABLES Final Res ult * ENDOSCOPY, COLON, SCREENING (04/04/2020 12:00 AM CDT) Sgf Scanning GI PROCEDURE ORDERABLES Final Re sult * HM DIABETES FOOT EXAM (12/27/2018 12:00 AM CDT) Marleni Zimmer HEADER SETUP OPERATOR HEALTH MAINTENANCE Final Result from Last 3 Months or Most Recently Relevant to Health Maintenance Insurance MEDICAID [facility] DUAL COMPLETE HMO [facility] [id number] Care Teams Community Liaison Relationship Specialty Start Date End Date Leah Millard DO [address] [place] [phone] PCP - General Family Practice 10/05/18
--- OUTSIDE RECORDS SUMMARY | 2025-08-02 18:19 | XMS_ITS | Encounter Summary ---
Author Organization [facility] Address [address] [place] [address] Care Team Providers Care Digital Marketing Analyst Name Role Phone Leah Millard DO Primary Care Provider [phone] Encounter Details Date Type Department Care Team (Latest Contact Info) Description 07/07/2025 Results Follow-Up [facility] [address] [place] [address] Nighat Sharpe [facility] [address] [place] [address] CBC WITH DIFFERENTIAL, COMPREHENSIVE METABOLIC PANEL Social History Tobacco Use Types Packs/Day Years [...] file Legal Sex Female 6:02 AM SUPERVISOR SUNGLASSES Gender Identity Not on file Sexual Orientation Not on file documented as of this encounter Plan of Treatment Upcoming Encounters Date Type Department Care Team (Late st Contact Info) Description 08/30/2025 2:40 PM SUPERVISOR SUNGLASSES Office Visit [facility] [address] [place] [address] Leah Millard, DO [address] [facility] [place] [phone] 09/15/2025 11:00 AM SUPERVISOR SUNGLASSES [facility] [place] [address] [place] [phone] Radha Navarro FNP [address] [place] [phone] 11/28/2025 10:40 AM CDT Office Visit [facility] [address] [place] [address] Leah Millard DO [address] [place] [address] documented as of this encounter Visit Diagnoses Not on filedocumented in this encounter Additional Health Concerns Assessment Noted Time PHQ-9 Depression Total Score: 2 10/11/19 25 12:26 PM SUPERVISOR SUNGLASSES documented as of this encounter Care Teams Digital Marketing Analyst Relationship Specialty Start Date End Date Leah Millard DO [address] [place] [phone] PCP - General Family Practice 10/05/18 documented as of this encounter
--- OUTSIDE RECORDS SUMMARY | 2025-08-02 18:19 | XMS_ITS | Encounter Summary ---
Author Organization [facility] Address [address] [place] [address] Care Team Providers Care Public Health Aides Teacher Name Role Phone Leah Millard DO Primary Care Provider Encounter Details Date Type Department Care Team (Late Contact Info) Description 07/04/2025 Results Follow-Up [facility] [address] [place] [address] Leah Millard DO [address] [place] [address] URINE CULTURE Social History Tobacco [...] on file Legal Sex Female 6:02 AM STUDENT RECRUITER Gender Identity Not on file Sexual Orientation Not on file documented as of this encounter Plan of Treatment Upcoming Encounters Date Type Department Care Team (Late st Contact Info) Description 08/30/2025 2:40 PM STUDENT RECRUITER Office Visit [facility] [address] [place] [address] Leah Millard DO [address] [facility] [place] [phone] 09/15/2025 11:00 AM STUDENT RECRUITER [facility] [place] [address] [place] [phone] Radha Navarro FNP [address] [place] [phone] 11/28/2025 10:40 AM CDT Office Visit [facility] [address] [place] [address] Leah Millard DO [address] [place] [address] documented as of this encounter Visit Diagnoses Not on filedocumented in this encounter Additional Health Concerns Assessment Noted Time PHQ-9 Depression Total Score: 2 10/11/19 25 12:26 PM STUDENT RECRUITER documented as of this encounter Care Teams Public Health Aides Teacher Relationship Specialty Start Date End Date Leah Millard DO [address] [place] [phone] PCP - General Family Practice 10/05/18 documented as of this encounter
--- OUTSIDE RECORDS SUMMARY | 2025-08-02 18:19 | XMS_ITS | Patient Health Record ---
Author Organization [facility] Address [address] [place] [address] Care Team Providers Care Otr Owner Operator Name Role Phone Leah Millard DO Primary Care Provider Rebeca Fleming Unavailable Jose Luis Retana Unavailable [phone] Allergies Allergen (clinical drug ingredient) Drug/Non Drug Allergy documented on EMR Reaction Allergy Type Onset Date Status Dextranomer-Hyaluron ic Acid Unknown Drug Allergy Active doxycycline Doxycycline Unknown Drug Allergy Act dodie levofloxacin levoFLOXacin Unknown Drug Allergy A ctive Penicillin Unknown Drug Allergy Active Substance with sulfonamide structure and antibacterial mechanism of action (substance) Sulfa Antibiotics Unknown Drug Allergy Active Results Component Value Reference Range Notes U[place] Without [place], [place] - [id number] Reviewed date:07/11/2025 09:32:51 AM Interpretation: Performing Lab: Notes/Report: Glucose 0 Bili 0 Ketones 0 Sp [place] 1.010 Blood +- pH 6.0 Protein 0 Urobili 0 Nitrites + Leukocytes 3+ Reason For Referral Reason Recurrent UTI Diagnosis 1 Recurrent UTI (N39.0 ) Referred Organization [facility] Referred Provider Jose Luis Retana Referred Address [address],[place],[address], Referred Provider Specialty Urology General Notes Elza Son 05/16 04:08:12 PM CDT > Left vm to schedule document review attorney appt Referral Priority Routine Medications Medication SIG (Take, Route, Frequency, Duration) Notes Start Date End Date Status Lidocaine & Adhesive Sheets 5 % (Patch) Kit as directed Externally Active traZODone HCl 100 MG Tablet 1 tablet at bedtime Orally Once a day Active Dexcom G7 Sensor - Miscellaneous USE DIRECTED CHANGE EVERY 10 DAYS; Duration: 30 Days Active Pantoprazole Sodium 40 MG Tablet Delayed Release 1 tablet 1/2 to 1 hour before morning meal Orally Once a day Active Vilazodone HCl 40 MG Tablet TAKE 1 TABLET BY MOUTH IN THE MORNING Oral; Duration: 30 Days Active Metoprolol Succinate 50 MG Capsule ER 24 Hour Sprinkle 1 capsule Orally Once a day Active Fosfomycin Tromethamine 3 GM Packet MIX AND TAKE 3 GRAMS BY MOUTH DIRECTED FOR 1 TIME DOSE Oral; Duration: 30 Days Not-Taking Meclizine HCl 25 MG Tablet Chewable 1 tablet as needed Orally every 12 hrs Active oxyCODONE HCl 10 MG Tablet TAKE 1 TABLET BY MOUTH THREE TIMES DAILY NEEDED FOR PAIN. MAX 3 TABLETS PER DAY. Oral; Duration: 30 Days Active Aspirin 81 81 MG Tablet Delayed Release 1 tablet Orally Once a day Active Spironolactone 25 MG Tablet Oral; Duration: 100 Days Active Pregabalin 100 MG Capsule 1 capsule Orally Once a day Active ARIPiprazole 15 MG Tablet 1 tablet Orally Once a day Active Mounjaro 15 MG/0.5ML Solution Auto-injector as directed Subcutaneous Active Atorvastatin Calcium 80 MG Tablet 1 tablet Orally Once a day Active Methenamine Hippurate 1 GM Tablet 1 tablet Orally Twice a day; Duration: 90 days 07/11/2025 01/07/2026 Active Estradiol 0.01 % Cream 1 gm Vaginal twic e a week; Duration: 24 days 07/11/2025 Active amLODIPine Besylate 2.5 MG Tablet 1 tablet Orally Once a day Active Vitamin D3 25 MCG (1000 UT) Tablet 1 tablet Orally Once a day Active Social History Tobacco Use: Social History Observation Description Date Details (start date - stop date) Former Smoker NA - NA Social History Tobacco Use: Social Info Question Answer Notes Tobacco Control (Standard) Tobacco use: Former smoker How long has it been since you last smoked? 5-10 years Section Notes: caffeine- sweet tea alcohol- neg Problems Problem Type SNOMED Code ICD Code Onset Dates Problem Status W/U Status Risk Notes Problem Nephrolithiasis (07977251) Nephrolithiasis (N20.0) Active confirmed Problem Urinary retention (264886666) Urinary retention (R33.9) Active confirmed Problem Atrophy of vagina (303477973) Vaginal atrophy (N95.2) Active confirmed Vital Signs Heart Rate 66 /min 07/11/2025 Temperature 98.2 degrees Fahrenheit 07/11/2025 Blood pressure diastolic 71 mm Hg 07/11/2025 Weight-kg 109.68 kg 07/11/2025 Blood pressure systolic 122 mm Hg 07/11/2025 Weight 241.8 lbs 07/11/2025 Encounters Encounter Location Date Provider Diagnosis [facility] [address] [place] [address] Dr Gunn [address] [place] [address], [place] [address] 07/11/2025 Rebeca Dimas Recurrent UTI N39.0 ; Vaginal atrophy N95.2 ; Urinary retention R33.9 and Nephrolithiasis N20.0 [facility] [address] [place] [address] Dr Gunn [address] [place] [address], [place] [address] 07/11/2025 Rebeca Dimas [facility] [address] Gunn [address] [place] [address], [place] [address] 06/08/2025 Jose Luis Retana Assessments Encounter Date Diagnosis (ICD Code) Assessment Notes Treatment Notes Treatment Clinical Notes Section Notes 07/11/2025 Vaginal atrophy (ICD-10 - N95.2) 07/11/2025 Recurrent UTI (ICD-10 - N39.0) 07/11/2025 Urinary retention (ICD-10 - R33.9) 07/11/2025 Nephrolithiasis (ICD-10 - N20.0) 07/11/2025 Other PATIENT WILL START VAGINAL ESTROGEN TWICE A WEEK FOR VAGINAL ATROPHY START methenamine hippurate 1 gram twice a day for recurrent UTI Patient will also start taking 500 mg of Vitamin C every day. She is going to establish with a urologist that is in her network. She is self pay here and is on a limited income. She was not told that in the beginning. Plan Of Treatment No Information Medical (General) History Hospitalization History Reason Date(Month/Year) septic UTI 30-06-20
--- OUTSIDE RECORDS SUMMARY | 2025-08-02 18:19 | XMS_ITS | Encounter Summary ---
Author Organization [facility] Address [address] [place] [address] Care Team Providers Care Catering Driver Name Role Phone Leah Millard DO Primary Care Provider [phone] Encounter Details Date Type Department Care Team (Late Contact Info) Description 07/28/2025 Results Follow-Up [facility] [address] [place] [address] Leah Millard DO [address] [place] [address] URINE CULTURE Social History Tobacco [...] on file Legal Sex Female 6:02 AM WATER MAIN INSPECTOR Gender Identity Not on file Sexual Orientation Not on file documented as of this encounter Plan of Treatment Upcoming Encounters Date Type Department Care Team (Late st Contact Info) Description 08/30/2025 2:40 PM WATER MAIN INSPECTOR Office Visit [facility] [address] [place] [address] Leah Millard DO [address] [facility] [place] [address] 09/15/2025 11:00 AM WATER MAIN INSPECTOR [facility] [place] [address] [place] [phone] Radha Navarro FNP [address] [place] [phone] 11/28/2025 10:40 AM CDT Office Visit [facility] [address] [place] [address] Leah Millard DO [address] [place] [address] documented as of this encounter Visit Diagnoses Not on filedocumented in this encounter Additional Health Concerns Assessment Noted Time PHQ-9 Depression Total Score: 2 10/11/19 25 12:26 PM WATER MAIN INSPECTOR documented as of this encounter Care Teams Catering Driver Relationship Specialty Start Date End Date Leah Millard DO [address] [place] [phone] PCP - General Family Practice 10/05/18 documented as of this encounter
--- OUTSIDE RECORDS SUMMARY | 2025-08-02 18:19 | XMS_ITS | Encounter Summary ---
Author Organization [facility] Address [address] [place] [address] Care Team Providers Care Rotary Drier Operator Name Role Phone Leah Millard DO Primary Care Provider [phone] Encounter Details Date Type Department Care Team (Latest Contact Info) Description 03/06/2003 Outpatient Historical [facility] [address] [place] [address] AMBULANCE, [facility] CHEST PAIN NOS (Primary Dx) Social History Tobacco Use Types Packs/Day Years Used Date Smoking Tobacco: Never Assessed Comments Unknown Sex and Gender Information Value Date Recorded Sex Assigned at Not on file Legal Sex Female 4:46 AM MATERIAL RECLAIMER Gender Identity Not on file Sexual Orientation Not on file documented as of this encounter Plan of Treatment Not on file documented as of this encounter Visit Diagnoses Diagnosis Chest pain, unspecified- Primary documented in this encounter Care Teams Rotary Drier Operator Relationship Specialty Start Date End Date Leah Millard DO [address] [place] [address] PCP - General Family Practice 10/05/18 documented as of this encounter
[2025-08-02] MEDS: levofloxacin-dextrose 5 % 750 MG/150 ML PREMIX 100 MG IV (18:23)
--- NOTE | 2025-08-02 19:30 | PM.HP ---
Providers/Chief Complaint Admitting Physician: Herve Melo MD Primary Care Provider: Leah Millard DO Chief Complaint: urinary / lethargy History of Present Illness Melissa Kinney is a 65 year old female with prior medical history of HTN, COPD, DM, TX, HLD, colon CA, CAMILLE, CPAP, bilateral kidney stones, sepsis, incontinence, chronic pain, and carotid artery stenosis presenting with altered mental status. Per daughter at bedside, patient has had recurrent UTI (05/21/25, 06/30/25, and today) with symptoms of fever, chills, pelvic discomfort, and dysuria. Today she had increasing fever, chills, confusion, and tremors. Also endorses flank pain and upper middle back pain. Patient sees Dr. Millard outpatient and has her urine checked approximately every two weeks with cultures sent. She has been on a regimen of Macrobid and vit C. She is planning to see a Urologist but cannot get an appointment until 09/15/2025. Will admit to Hospitalist Service for further evaluation and treatement. Review of Systems General: Reports: 10 or more systems reviewed and unremarkable except in HPI and below Const: Reports: fever(s), chills, fatigue and malaise; Denies: change in appetite, change in weight or diaphoresis ENMT: Denies: throat pain or hoarseness Card: Denies: chest pain, palpitations or lightheadedness Resp: Reports: dyspnea; Denies: productive cough or wheezing GI: Reports: abdominal pain and nausea; Denies: vomiting, diarrhea, constipation, bloating, change in stool character or hematochezia : Reports: dysuria and hematuria; Denies: flank pain, difficulty voiding, urinary frequency or urinary urgency Musc: Denies: neck pain or back pain Skin/Breast: Denies: rash or new lesions Neuro: Reports: other; Denies: headache(s) or dizziness Medications/Allergies Home Medications ?Medication ?Instructions ?Recorded ?Confirmed ?Last Taken ?Type albuterol sulfate 90 mcg/actuation 2 puff inhalation Q6H PRN 10/04/19 08/03/25 09/20/20 History aerosol inhaler Respiratory Distress atorvastatin 80 mg tablet 80 mg PO BEDTIME 10/04/19 08/03/25 06/29/25 History cyanocobalamin (vitamin B-12) 1,000 mcg PO DAILY 10/04/19 08/03/25 06/29/25 History 1,000 mcg capsule WALKER #1 ea 10/04/20 07/01/25 Unknown Rx aspirin 81 mg tablet,delayed 162 mg (2 x 81 mg) PO DAILY #60 11/03/20 08/03/25 06/29/25 Rx release tabs spironolactone 25 mg tablet 25 mg PO DAILY #30 tabs 11/03/20 08/03/25 06/29/25 Rx blood sugar diagnostic #200 ea 08/23/21 07/01/25 Unknown Rx blood-glucose meter #1 ea 08/23/21 07/01/25 Unknown Rx cholecalciferol (vitamin D3) 25 25 mcg PO DAILY 09/26/21 08/03/25 06/29/25 History mcg (1,000 unit) capsule oxycodone 10 mg tablet 10 mg PO TID PRN Pain 05/26/23 08/03/25 05/21/25 08:00 History blood-glucose,publicity expert,cont #1 ea 10/07/23 07/01/25 Unknown Rx (Dexcom G7 [employer]) tirzepatide 15 mg/0.5 mL 15 mg (0.5 mL) SUBCUT Q7D #2 mL 12/23/23 08/03/25 06/28/25 Rx subcutaneous pen injector (Shadi) blood-glucose sensor (Dexcom G7 #9 ea 02/11/24 07/01/25 Unknown Rx Sensor device) amlodipine 2.5 mg tablet 2.5 mg PO BEDTIME 05/22/25 08/03/25 06/29/25 History aripiprazole 15 mg tablet 15 mg PO DAILY 05/22/25 08/03/25 06/29/25 History cetirizine 10 mg tablet (Zyrtec) 10 mg PO DAILY PRN allergies 05/22/25 08/03/25 05/15/25 History clobetasol 0.05 % topical cream 1 applic topical PRN PRN psoriasis 05/22/25 08/03/25 Unknown History insulin regular hum U-500 conc 500 See Rx Instructions .Route 05/22/25 08/03/25 Unknown History unit/mL(3 mL) subcut pen (Humulin .COMPLEX PRN high blood sugar R U-500 (Conc) Insulin Kwikpen) lidocaine 5 % topical patch 1 - 3 patch topical DAILY PRN Pain 05/22/25 08/03/25 05/21/25 08:00 History metoprolol tartrate 50 mg tablet 50 mg PO BID 05/22/25 08/03/25 06/29/25 History mirabegron 25 mg tablet,extended 25 mg PO DAILY 05/22/25 08/03/25 05/21/25 08:00 History release 24 hr (Myrbetriq) mupirocin 2 % topical ointment 1 applic topical DAILY PRN redness 05/22/25 08/03/25 Unknown History ondansetron 4 mg disintegrating 4 mg PO Q6H PRN Nausea 05/22/25 08/03/25 05/21/25 08:00 History tablet oxygen-air delivery systems 05/22/25 07/01/25 Unknown History pregabalin 100 mg capsule 100 mg PO BID 05/22/25 08/03/25 06/29/25 History trazodone 150 mg tablet 150 mg PO BEDTIME 05/22/25 08/03/25 06/29/25 History vilazodone 40 mg tablet 40 mg PO DAILY 05/22/25 08/03/25 06/29/25 History alprazolam 0.5 mg tablet 0.5 mg PO DAILY PRN Anxiety 07/01/25 08/03/25 Unknown History docusate sodium 100 mg capsule 200 mg PO BID PRN Constipation 07/01/25 08/03/25 Unknown History (Colace) fluconazole 100 mg tablet 100 mg PO DAILY 07/01/25 08/03/25 Unknown History ketoconazole 2 % shampoo See Rx Instructions .Route .COMPLEX 07/01/25 08/03/25 Unknown History meclizine 25 mg tablet 25 mg PO TID PRN Dizziness 07/01/25 08/03/25 Unknown History pantoprazole 40 mg tablet,delayed 40 mg PO BID PRN Acid Reflux 07/01/25 08/03/25 Unknown History release (Protonix) rimegepant 75 mg disintegrating 75 mg PO DAILY PRN Migraine 07/01/25 08/03/25 Unknown History tablet (Nurtec ODT) Headache Allergies Allergy/AdvReac Type Severity Reaction Status Date / Time clindamycin Allergy Intermediate rash/nausea Verified 06/01/25 10:04 cephalexin (From Keflex) Allergy RASH,FEVER Verified 06/01/25 10:04 clonazepam (From Klonopin) Allergy SEIZURES Verified 06/01/25 10:04 doxycycline Allergy CONVULSIONS Verified 06/01/25 10:04 glyburide Allergy HIVES Verified 06/01/25 10:04 iodine Allergy ALGY-Wheezi Verified 06/01/25 10:04 ng Penicillins Allergy CONVULSIONS Verified 06/01/25 10:04 piperacillin (From Zosyn) Allergy ADR-Itching Verified 06/01/25 10:04 Sulfa (Sulfonamide Allergy RASH Verified 06/01/25 10:04 Antibiotics) tazobactam (From Zosyn) Allergy ADR-Itching Verified 06/01/25 10:04 tramadol (From Ultram) Allergy HIVES Verified 06/01/25 10:04 hydroxyzine Allergy unknown Uncoded 06/01/25 10:04 PFSH Acute PFSH: Medical History Chronic cystitis Multiple sclerosis Diagnosed in 2014 Internal carotid artery stenosis Chronic pain History of colon cancer COPD (chronic obstructive pulmonary disease) Hyperlipidemia Insulin dependent type 2 diabetes mellitus Cardiac arrest Hypertension Patella fracture Incontinence Recurrent urinary tract infection Bilateral kidney stones Calcium urolithiasis Carpal tunnel syndrome of left wrist Surgical History Hx of detached retina repair History of tonsillectomy S/P extracorporeal shock wave therapy LEFT URETERAL STENT PLACEMENT History of appendectomy History of cholecystectomy Hx of adenoidectomy History of colon resection COLON CANCER Family History Father Parkinson disease Mother Parkinson disease Other CAD (coronary artery disease) Social History Smoking and tobacco/nicotine status: former use of tobacco/nicotine Alcohol intake: never Substance/Drug Use: never Adopted: No Caregiver/support person: No Lives independently: No Household members: spouse Marital status: Current occupational status: disabled Current gender identity: Female Vitals/I&O/Wt Last Vital Signs Temp 97.7 F 08/02/25 23:40 Pulse 66 08/02/25 23:40 Resp 18 08/03/25 00:05 BP 157/84 08/02/25 23:40 Pulse Ox 97 08/02/25 23:40 O2 Del Method Room Air 08/02/25 23:40 O2 Flow Rate 2 08/02/25 20:30 08/02/25 08/02/25 08/03/25 14:59 22:59 06:59 Intake Total 1150 / 1150 Balance 1150 / 1150 Weight last 48 hrs Weight 114.078 kg Weight 107.501 kg Physical Exam Narrative: General: Alert and oriented, lying comfortably without any distress and on 2L NC HEENT: Normocephalic, atraumatic Cardio: normal rate rhythm, no JVD Respiratory: normal vascular breathing on auscultation GI: Abdomen soft, mild tenderness Neuro: intact cranial nerves motor and sensory and cerebellar/coordination function without any focal neurological deficit Behavior: Appropriate and cooperative Extremities: Adequate palpable pulses, mild trace edema Data 08/02/25 16:20 08/02/25 16:20 A&P Assessment and plan 1. UTI (urinary tract infection): Urinalysis; trace protein, trace ketones, 2+ blood, 1+ leukocytes, 21-50 WBC WBC 17.81 Hx of DORIE, bilateral kidney stones - stable today, Creat 1.1, BUN [address] abdomen/pelvis; Nonspecific thickening urinary bladder wall as above noted if there is concern for infection correlate with urinalysis, bilateral nonobstructing caliceal renal calculi largest right midpole 1.7 cm, postcholecystectomy status Sima Follows Dr. Millard outpatient Plans to follow up with Urologist outpatient 09/15/2025 2. Acute encephalopathy: Likkely secondary to infection status Mentation checks CXR; no acute findings Fall risk precautions PT/OT prior to discharge 3. Insulin dependent type 2 diabetes mellitus: Glucose 125 A1c Hold home regimen Sliding scale PDMP PDMP Reviewed: Not Reviewed Attestations Medical Necessity Statement*: Initial hospitalization for > 2 midnights expected secondary to AMS, recurrent UTI requiring IV antibiotics, and mile acute encephalopathy. Diagnoses UTI (urinary tract infection) N39.0 Acute encephalopathy G93.40 Insulin dependent type 2 diabetes mellitus E11.9; Z79.4 Time Spent (min) 70
[2025-08-02] MEDS: pantoprazole 40 mg SDV IVP (20:05)
[2025-08-02] MEDS: ondansetron 2 mg/ML SDV 2 mL 4 MG IVP (20:12)
[2025-08-03] VITALS (12 sets, daily range): BP systolic 124–154; BP diastolic 70–84; PULSE 57–86; RESP 16–20; TEMP 36.4–36.9; O2SAT 92–98
[2025-08-03] MEDS: oxyCODONE-APAP 10-325 mg Tablet 1 TAB PO ×3 (00:05→21:36)
[2025-08-03 04:54] LABS: Hematocrit 35.7 % (36-47); Hemoglobin 11.20 g/dL (11.27-16.99); Mean Corpuscular HGB Conc 31.4 g/dL (30-55); Mean Corpuscular Hemoglobin 26.7 pg (27-33); Mean Corpuscular Volume 85.2 fl (85-98); Nucleated Red Blood Cells % 0 %; Platelet Count 174 10^3/cmm (157-399); Red Blood Count 4.19 10^6/uL (3.85-5.65); White Blood Count 12.40 10^3/uL (3.29-11.43)
[2025-08-03 05:22] LABS: Anion Gap 10.0 (5-19); Blood Urea Nitrogen 9 mg/dL (8-23); Calcium 8.6 mg/dL (8.5-10.5); Carbon Dioxide 30 mmol/L (22-29); Chloride 107 mmol/L (98-107); Glucose 99 mg/dL (65-115); Osmolality Calculated 295 mOsm/kg (285-295); Potassium 4.0 mmol/L (3.5-5.1); Sodium 143 mmol/L (136-145)
[2025-08-03] MEDS: ondansetron 2 mg/ML SDV 2 mL 4 MG IVP ×2 (08:48→23:36)
--- NOTE | 2025-08-03 08:51 | PC.PHAR ---
Pt rarely has to use Humulin r insulin since she is taking the Mounjaro every Thursday. Added 3 new current therapy medications that were not on the hospital list. Macrobid 100mg bid 07/26/25 30ds, Methenamine Hippurate 1g bid 07/11/25 90ds, and Estradiol 0.1/gm cream 1g 2xweekly 07/11/25 43ds.
[2025-08-03] MEDS: levofloxacin-dextrose 5 % 750 MG/150 ML PREMIX 100 MG IV (16:43)
[2025-08-03] MEDS: pantoprazole 40 mg SDV IVP (19:52)
--- NOTE | 2025-08-03 21:10 | P.PN_ITS ---
Subjective 2 Subjective: The patient was seen in the morning, currently doing better Still having mild dull ache at the suprapubic region however is relatively better Vitals/I&O/Wt Last Vital Signs Temp 97.6 F 08/03/25 16:00 Pulse 69 08/03/25 16:00 Resp 18 08/03/25 16:00 BP 134/81 08/03/25 16:00 Pulse Ox 95 08/03/25 16:00 O2 Del Method Room Air 08/03/25 16:00 O2 Flow Rate 2.5 08/03/25 08:06 08/03/25 08/03/25 08/03/25 06:59 14:59 22:59 Intake Total 1308.75 / 1308.75 390 / 1698.75 Output Total 250 / 250 300 / 550 Balance 1058.75 / 1058.75 90 / 1148.75 Weight last 48 hrs Weight 113.511 kg Weight 114.078 kg Weight 107.501 kg Physical Exam 2 Narrative: General: Morbid obese lady, alert and oriented, lying comfortably without any distress HEENT: Normocephalic, atraumatic, grossly unremarkable exam Cardio: normal rate rhythm, normal S1-S2 without any murmurs, rubs, or gallops and JVD normal Respiratory: normal vascular breathing on auscultation without any wheezes, stridor, rhonchi GI: Abdomen soft, highly tender at the suprapubic region, nondistended, normoactive bowel sounds present all 4 quadrants, Neuro: intact cranial nerves motor and sensory and cerebellar/coordination function without any focal neurological deficit Behavior: Appropriate and cooperative Extremities: Adequate palpable pulses, mild trace edema Data 08/03/25 04:37 08/03/25 04:37 Micro: Microbiology 08/02/25 16:57 Urine Culture - Preliminary Urine,Clean Catch A&P Assessment and plan 1. UTI (urinary tract infection): UA and WBC suggestive of infectious process likely UTI//cystitis CT abdomen showed bilateral known obstructive kidney stones/detailed report see the CT scan imaging studies Patient allergic to cephalexin, therefore levofloxacin [address] Millard outpatient Plans to follow up with Urologist outpatient 09/15/2025 2. Acute encephalopathy: Currently stable and oriented to time place and person CXR; no acute findings Fall risk precautions PT/OT prior to discharge 3. Insulin dependent type 2 diabetes mellitus: Insulin sliding scale and to monitor glucose 4. COPD (chronic obstructive pulmonary disease): Continue DuoNebs as needed for shortness of breath 5. DORIE (acute kidney injury): Secondary to cystitis, currently resolved Monitor renal functions Intake and output monitoring Monitor and correction of electrolytes accordingly 6. Chronic pain: Adequate analgesia to be provided as per pain scale Patient on lidocaine patch at home And on oxycodone 10 mg tablet 3 times daily as needed for pain 7. CVA (cerebral vascular accident): Patient on aspirin and statin Resume home medications and to continue as inpatient 8. Hyperlipemia, mixed: Continue on atorvastatin 80 mg daily 9. Coronary artery disease: Continue home dose aspirin and statin Monitor hemodynamics Currently stable no acute concerns PDMP PDMP Reviewed: Not Reviewed Attestations 2 Medical Necessity Statement*: Patient will stay overnight for follow-up blood cultures and patient clinical status before discharge for UTI OT PT evaluation and piano case maker informed about patient living status and to further optimize her safe discharge Time Spent in Patient Care: 16 - 35 minutes (>than 50% of time sp ent in counselling and/or direct pt care on unit) . Other Attestations: Patient condition has been discussed at length with the patient/family, I have independently reviewed the chart labs imaging/diagnostics/EKG. the goals of care and code status with the patient/family/NOK/legal containers sales representative, and documented accordingly. The management has been done according to the current clinical condition with respect to patient goals of care and based on recommendations/guidelines. The patient/family has been informed about the current condition and further plan of care. Agreed with the plan of care and understood without any language barrier. Every effort was made to ensure accuracy of business excellence leader. Any obvious errors or omissions should be clarified with the author of the document. Coding Level of Care Code Acute Code for [facility] Fwd Diagnoses UTI (urinary tract infection) N30.00 Hematuria presence: without hematuria Urinary tract infection type: acute cystitis Acute encephalopathy G93.40 Insulin dependent type 2 diabetes mellitus E11.9; Z79.4 COPD (chronic obstructive pulmonary disease) J44.9 DORIE (acute kidney injury) N17.9 Chronic pain G89.29 CVA (cerebral vascular accident) I63.9 Hyperlipemia, mixed E78.2 Coronary artery disease I25.10
[2025-08-04] VITALS: BP 173/86; PULSE 88; RESP 15; TEMP 36.5; O2SAT 93
[2025-08-04 04:00] VITALS: BP 176/79; PULSE 90; RESP 16; TEMP 36.6; O2SAT 94
[2025-08-04] MEDS: ondansetron 2 mg/ML SDV 2 mL 4 MG IVP (05:16)
[2025-08-04 06:00] VITALS: PULSE 77
[2025-08-04 06:08] LABS: Hematocrit 40.9 % (36-47); Hemoglobin 12.90 g/dL (11.27-16.99); Mean Corpuscular HGB Conc 31.5 g/dL (30-55); Mean Corpuscular Hemoglobin 26.9 pg (27-33); Mean Corpuscular Volume 85.2 fl (85-98); Nucleated Red Blood Cells % 0 %; Platelet Count 222 10^3/cmm (157-399); Red Blood Count 4.80 10^6/uL (3.85-5.65); White Blood Count 12.40 10^3/uL (3.29-11.43)
[2025-08-04 06:42] LABS: Alanine Aminotransferase 15 U/L (0-33); Albumin Level 3.5 g/dL (3.5-5.2); Alkaline Phosphatase 151 U/L (35-105); Anion Gap 14.3 (5-19); Aspartate Amino Transferase 13 U/L (0-32); Blood Urea Nitrogen 8 mg/dL (8-23); Calcium 9.2 mg/dL (8.5-10.5); Carbon Dioxide 27 mmol/L (22-29); Chloride 103 mmol/L (98-107); Globulin 3.9 g/dL (1.3-4.6); Glucose 138 mg/dL (65-115); Osmolality Calculated 291 mOsm/kg (285-295); Potassium 4.3 mmol/L (3.5-5.1); Sodium 140 mmol/L (136-145); Total Protein 7.4 g/dL (6.6-8.7)
[2025-08-04 08:00] VITALS: BP 182/94; PULSE 83; RESP 18; TEMP 36.4; O2SAT 96
--- NOTE | 2025-08-04 08:59 | P.DS_ITS ---
Discharge Providers Date of Admission: 08/02/25 18:24 Date of Discharge: August 04, 2025 Attending Provider at Admission: Herve Melo MD Attending Provider at Discharge: Stefanie Morales NP Primary Care Provider: Leah Millard DO Diagnoses at Discharge Discharge Diagnosis 1. UTI (urinary tract infection): 2. Acute encephalopathy: 3. Insulin dependent type 2 diabetes mellitus: 4. COPD (chronic obstructive pulmonary disease): 5. DORIE (acute kidney injury): 6. Chronic pain: 7. CVA (cerebral vascular accident): 8. Hyperlipemia, mixed: 9. Coronary artery disease: Reason for Visit Reason for Visit: urinary / lethargy Brief History: Admission: Melissa Kinney is a 65 year old female with prior medical history of HTN, COPD, DM, ME, HLD, colon CA, CAMILLE, CPAP, bilateral kidney stones, sepsis, incontinence, chronic pain, and carotid artery stenosis presenting with altered mental status. Per daughter at bedside, patient has had recurrent UTI (05/21/25, 06/30/25, and today) with symptoms of fever, chills, pelvic discomfort, and dysuria. Today she had increasing fever, chills, confusion, and tremors. Also endorses flank pain and upper middle back pain. Patient sees Dr. Millard outpatient and has her urine checked approximately every two weeks with cultures sent. She has been on a regimen of Macrobid and vit C. She is planning to see a Urologist but cannot get an appointment until 09/15/2025. Hospital Course Hospital Course 1. UTI (urinary tract infection): UA and WBC suggestive of infectious process likely UTI//cystitis CT abdomen showed bilateral known obstructive kidney stones/detailed report see the CT scan imaging studies Patient allergic to cephalexin, therefore levofloxacin [address] Millard outpatient Plans to follow up with Urologist outpatient 09/15/2025 2. Acute encephalopathy: Currently stable and oriented to time place and person CXR; no acute findings Fall risk precautions PT/OT prior to discharge 3. Insulin dependent type 2 diabetes mellitus: Insulin sliding scale and to monitor glucose 4. COPD (chronic obstructive pulmonary disease): Continue DuoNebs as needed for shortness of breath 5. DORIE (acute kidney injury): Secondary to cystitis, currently resolved Monitor renal functions Intake and output monitoring Monitor and correction of electrolytes accordingly 6. Chronic pain: Adequate analgesia to be provided as per pain scale Patient on lidocaine patch at home And on oxycodone 10 mg tablet 3 times daily as needed for pain 7. CVA (cerebral vascular accident): Patient on aspirin and statin Resume home medications and to continue as inpatient 8. Hyperlipemia, mixed: Continue on atorvastatin 80 mg daily 9. Coronary artery disease: Continue home dose aspirin and statin Monitor hemodynamics Currently stable no acute concerns Patient discharge is in stable condition. Did have elevated blood pressure night before discharge, secondary to anxiety. Vital signs stable at discharge oxygen saturation 96%. Patient at her baseline physical activity. Does have available equipment at home. Patient will discharge home with home health in the care of her daughter to follow-up with primary care provider in 1 to 2 days and urology at the earliest available appointment. Patient's urine cultures at time of discharge with no growth will continue empiric antibiotic coverage and adjust as needed if culture results change. Greatly appreciate case management and discharge planning and coordination with family. All questions and concerns addressed with patient prior to discharge. Physical Exam Narrative: General: Morbid obese lady, alert and oriented, lying comfortably without any distress HEENT: Normocephalic, atraumatic, grossly unremarkable exam Cardio: normal rate rhythm, normal S1-S2 without any murmurs, rubs, or gallops and JVD normal Respiratory: normal vascular breathing on auscultation without any wheezes, stridor, rhonchi GI: Abdomen soft, highly tender at the suprapubic region, nondistended, normoactive bowel sounds present all 4 quadrants, Neuro: intact cranial nerves motor and sensory and cerebellar/coordination function without any focal neurological deficit Behavior: Appropriate and cooperative Extremities: Adequate palpable pulses, mild trace edema Discharge Data Studies Completed and Pending Completed Studies During Hospitalization Category Date Time Status CT abdomen pelvis wo con [id number] Stat Cat Scan 08/02/25 16:01 Completed CXRP [XR chest 1V portable [id number]] Stat Exams 08/02/25 17:46 Completed Pending at discharge Category Date Time Status Urine Culture Stat Lab 08/02/25 16:57 Results Radiology Impressions Abdomen/Pelvis CT 08/02/25 16:01 IMPRESSION: Nonspecific thickening urinary bladder wall as above noted if there is concern for infection correlate with urinalysis Bilateral nonobstructing caliceal renal calculi largest right midpole 1.7 cm. Postcholecystectomy status. Chest X-Ray 08/02/25 17:46 IMPRESSION: No acute findings. Laboratory Results WBC 12.40 10^3/uL (3.29-11.43) H 08/04/25 05:53 RBC 4.80 10^6/uL (3.85-5.65) 08/04/25 05:53 Hgb 12.90 g/dL (11.27-16.99) 08/04/25 05:53 Hct 40.9 % (36-47) 08/04/25 05:53 MCV 85.2 fl (85-98) 08/04/25 05:53 MCH 26.9 pg (27-33) L 08/04/25 05:53 MCHC 31.5 g/dL (30-55) 08/04/25 05:53 RDW 14.4 % (12.1-15.1) 08/04/25 05:53 Plt Count 222 10^3/cmm (157-399) 08/04/25 05:53 MPV 10.1 fL (7.4-10.4) 08/04/25 05:53 Neut % (Auto) 77.5 % 08/04/25 05:53 Lymph % (Auto) 17.6 % 08/04/25 05:53 [place] % (Auto) 2.8 % 08/04/25 05:53 Eos % (Auto) 0.8 % 08/04/25 05:53 Baso % (Auto) 0.6 % 08/04/25 05:53 Neut # (Auto) 9.60 10^3/uL (1.8-7.7) H 08/04/25 05:53 Lymph # (Auto) 2.2 10^3/uL (0.8-4.8) 08/04/25 05:53 [place] # (Auto) 0.4 10^3/uL (0.2-0.9) 08/04/25 05:53 Eos # (Auto) 0.1 10^3/uL (0.0-0.8) 08/04/25 05:53 Baso # (Auto) 0.1 10^3/uL (0.0-0.1) 08/04/25 05:53 Nucleated RBC % (auto) 0 % 08/04/25 05:53 Nucleated RBCs # 0.0 /100WBC 08/04/25 05:53 Sodium 140 mmol/L (136-145) 08/04/25 05:53 Potassium 4.3 mmol/L (3.5-5.1) 08/04/25 05:53 Chloride 103 mmol/L (98-107) 08/04/25 05:53 Carbon Dioxide 27 mmol/L (22-29) 08/04/25 05:53 Anion Gap 14.3 (5-19) 08/04/25 05:53 BUN 8 mg/dL (8-23) 08/04/25 05:53 Creatinine 0.9 mg/dL (0.5-0.9) 08/04/25 05:53 GFR Calculation 62.6 mL/min (90-130) L 08/04/25 05:53 Glucose 138 mg/dL (65-115) H 08/04/25 05:53 POC Glucose 139 mg/dL (70-110) H 08/04/25 06:57 Calculated Osmolality 291 mOsm/kg (285-295) 08/04/25 05:53 Calcium 9.2 mg/dL (8.5-10.5) 08/04/25 05:53 Magnesium 2.0 mg/dL (1.7-2.3) 08/02/25 16:20 Total Bilirubin 0.4 mg/dL (0.15-1.2) 08/04/25 05:53 AST 13 U/L (0-32) 08/04/25 05:53 ALT 15 U/L (0-33) 08/04/25 05:53 Alkaline Phosphatase 151 U/L (35-105) H 08/04/25 05:53 Total Protein 7.4 g/dL (6.6-8.7) 08/04/25 05:53 Albumin 3.5 g/dL (3.5-5.2) 08/04/25 05:53 Globulin 3.9 g/dL (1.3-4.6) 08/04/25 05:53 Lipase 20 U/L (13-60) 08/02/25 16:20 TSH 0.85 uIU/mL (0.27-4.20) 08/02/25 16:20 Urine Color Yellow (Yellow) 08/02/25 16:57 Urine Appearance Clear (CLEAR) 08/02/25 16:57 Urine pH 5.5 (5-7) 08/02/25 16:57 Ur Specific [place] 1.019 (1.005-1.030) 08/02/25 16:57 Urine Protein Trace (Negative) A 08/02/25 16:57 Urine Glucose (UA) Negative (Normal) 08/02/25 16:57 Urine Ketones Trace (Negative) 08/02/25 16:57 Urine Blood 2+ (Negative) A 08/02/25 16:57 Urine Nitrate Negative (Negative) 08/02/25 16:57 Urine Bilirubin Negative (Negative) 08/02/25 16:57 Urine Urobilinogen 0.2 mg/dL (Negative) 08/02/25 16:57 Ur Leukocyte Esterase 1+ (Negative) A 08/02/25 16:57 Urine RBC 51-100 /hpf (0-2) H 08/02/25 16:57 Urine WBC 21-50 /hpf (0-5) H 08/02/25 16:57 Ur Squamous Epith Cells 6-10 /hpf (0-5) 08/02/25 16:57 Amorphous Sediment Not Reportable 08/02/25 16:57 Urine Bacteria None seen /hpf (NONE) 08/02/25 16:57 Hyaline Casts 0.81 /lpf 08/02/25 16:57 Vitals Last Vital Signs Temp 97.5 F L 08/04/25 08:00 Pulse 83 08/04/25 08:00 Resp 18 08/04/25 08:00 BP 182/94 08/04/25 08:00 Pulse Ox 83 L 08/04/25 08:00 O2 Del Method Room Air 08/03/25 16:00 O2 Flow Rate 2.5 08/03/25 08:06 Discharge Plan Discharge Patient Disposition: Home Health Service Condition: Stable Prescriptions: New levofloxacin 500 mg tablet 500 mg PO DAILY 5 Days Qty: 5 0RF Continued cyanocobalamin (vitamin B-12) 1,000 mcg capsule 1,000 mcg PO DAILY albuterol sulfate 90 mcg/actuation HFA aerosol inhaler 2 puff INHALATION Q6H PRN (Reason: Respiratory Distress) atorvastatin 80 mg tablet 80 mg PO BEDTIME (DME) WALKER See Rx Instructions .Route .MEDSUPPLY Qty: 1 0RF Rx Instructions: As directed cholecalciferol (vitamin D3) 25 mcg (1,000 unit) capsule 25 mcg PO DAILY oxycodone 10 mg tablet 10 mg PO TID PRN (Reason: Pain) Mounjaro 15 mg/0.5 mL pen injector 15 mg SUBCUT Q7D Qty: 2 1RF Rx Instructions: [place] [place] Strip See Rx Instructions .Route Qty: 200 3RF Rx Instructions: [place] [place] blood-glucose [place] Kit See Rx Instructions .Route Qty: 1 0RF Rx Instructions: Check BS twice a day. [place] [place] Dexcom G7 [employer] Misc See Rx Instructions .Route Qty: 1 0RF Rx Instructions: [place] [place] Dexcom G7 Sensor Device See Rx Instructions .ROUTE .MEDSUPPLY Qty: 9 1RF Rx Instructions: Change every 10days aspirin 81 mg Tablet,Delayed Release (Dr/Ec) 162 mg PO DAILY Qty: 60 0RF spironolactone 25 mg Tablet 25 mg PO DAILY Qty: 30 0RF pantoprazole [Protonix] 40 mg tablet,delayed release (DR/EC) 40 mg PO BID PRN (Reason: Acid Reflux) fluconazole 100 mg tablet 100 mg PO DAILY ketoconazole 2 % shampoo See Rx Instructions .ROUTE .COMPLEX Rx Instructions: USE 10 MLS DIRECTED TO WASH/SHAMPOO HAIR ONCE DAILY FOR ONE WEEK, THEN USE TWICE WEEKLY. meclizine 25 mg Tablet 25 mg PO TID PRN (Reason: Dizziness) docusate sodium [Colace] 100 mg Capsule 200 mg PO BID PRN (Reason: Constipation) Nurtec ODT 75 mg Tablet,Disintegrating 75 mg PO DAILY PRN (Reason: Migraine Headache) cetirizine [Zyrtec] 10 mg Tablet 10 mg PO DAILY PRN (Reason: allergies) clobetasol 0.05 % cream 1 applic TOPICAL PRN PRN (Reason: psoriasis) amlodipine 2.5 mg tablet 2.5 mg PO BEDTIME trazodone 150 mg tablet 150 mg PO BEDTIME lidocaine 5 % adhesive patch,medicated 1 - 3 patch topical DAILY PRN (Reason: Pain) metoprolol tartrate 50 mg tablet 50 mg PO BID mupirocin 2 % Ointment 1 applic TOPICAL DAILY PRN (Reason: redness) ondansetron 4 mg tablet,disintegrating 4 mg PO Q6H PRN (Reason: Nausea) (DME) oxygen-air delivery systems Device MISCELLANEOUS aripiprazole 15 mg tablet 15 mg PO DAILY pregabalin 100 mg capsule 100 mg PO BID vilazodone 40 mg tablet 40 mg PO DAILY mirabegron [Myrbetriq] 25 mg tablet extended release 24 hr 25 mg PO DAILY Humulin R U-500 (Conc) Kwikpen 500 unit/mL (3 mL) insulin pen See Rx Instructions .ROUTE .COMPLEX PRN (Reason: high blood sugar) Rx Instructions: Inject 100-200mg tid as needed per sliding scale. methenamine hippurate 1 gram tablet 1 g PO BID estradiol 0.01 % (0.1 mg/gram) cream 1 g VAGINAL .2XWEEKLY Held nitrofurantoin monohyd/m-cryst 100 mg capsule 100 mg PO BID Hold Instructions: Resume on 08/14/25. Reviewed with your PCP before resuming Discharge Order = DC NOW: Discharge Order (Routine); Ordered 08/04/25 Ordered By: Stefanie Morales Referrals: [facility] [Outside] Leah Millard DO [Primary Care Provider, [facility]] Discharge Diet: Usual diet Discharge Activity: Resume usual activity Patient Instructions: Urinary Tract Infection in Women (DC), Encephalopathy (DC), Opioid Safety, Stroke Stoplight, Patient Portal & Dione Instructions Discharge Attestations Time Spent in Discharge Care*: greater than 30 min Quality Metrics Clinical Quality Measures [ No reported AMI, CVA or VTE this stay] Coding Level of Care Code 20443 Diagnoses UTI (urinary tract infection) N30.00 Hematuria presence: without hematuria Urinary tract infection type: acute cystitis Acute encephalopathy G93.40 Insulin dependent type 2 diabetes mellitus E11.9; Z79.4 COPD (chronic obstructive pulmonary disease) J44.9 DORIE (acute kidney injury) N17.9 Chronic pain G89.29 CVA (cerebral vascular accident) I63.9 Hyperlipemia, mixed E78.2 Coronary artery disease I25.10
--- NOTE | 2025-08-04 10:16 | PC.SOCIAL ---
Updated IMM Updated pt & pt daughters on IMM. No questions voiced. Provided pt a copy. Initialed, dated, & timed a copy & placed in chart.
[2025-08-04 11:21] VITALS: BP 136/82; PULSE 78; RESP 18; TEMP 36.3; O2SAT 95
--- OUTSIDE RECORDS SUMMARY | 2025-08-08 11:00 | XMS_ITS | Encounter Summary ---
Author Organization [facility] Address [address] [place] [address] Care Team Providers Care Scrap Hooker Name Role Phone Aminata Millardorachandana Rodrgíuez DO Primary Care Provider [phone]- [phone] Reason for Visit * Reason Comments Hospital Follow Up Hospital f/u for UTI Encounter Details Date Type Department Care Team (Late st Contact Info) Description 08/08/2025 11:00 AM AIRCRAFT CABIN CLEANER Office Visit [facility] [address] [place] [phone] [place], December, [facility] [address] [place] [address] Hospital discharge follow-up (Primary Dx); Recurrent UTI; Gastroesophageal reflux disease, unspecified whether esophagitis present Social History Tobacco Use Types Packs/Day Years [...] on file Legal Sex Female 6:02 AM AIRCRAFT CABIN CLEANER Gender Identity Not on file Sexual Orientation Not on file documented as of this encounter Last Filed Vital Signs Vital Sign Reading Time Taken Comments Blood Pressure 104/70 08/08/2025 11:13 AM AIRCRAFT CABIN CLEANER Pulse 57 08/08/2025 11:13 AM AIRCRAFT CABIN CLEANER Temperature 36.5 C (97.7 F) 08/08/2025 11:13 AM AIRCRAFT CABIN CLEANER Respiratory Rate 18 08/08/2025 11:13 AM AIRCRAFT CABIN CLEANER Oxygen Saturation 95% 08/08/2025 11:13 AM AIRCRAFT CABIN CLEANER Inhaled Oxygen Concentration - - Weight 110.2 kg (243 lb) 08/08/2025 11:13 AM AIRCRAFT CABIN CLEANER Height 167.6 cm (5' 6 ) 08/08/2025 11:13 AM AIRCRAFT CABIN CLEANER Body Mass Index 39.22 08/08/2025 11:13 AM AIRCRAFT CABIN CLEANER documented in this encounter Progress Notes * Khalida, December, ATHLETIC INSTRUCTOR - 08/08/2025 11:17 AM CST Chief Complaint Patient presents with Hospital Follow Up Hospital f/u for UTI History of Present Illness The patient is a 65-year-old female who presents to the clinic for a hospital follow-up. She was hospitalized from 08/02/2025 to 08/04/2025 marking her third hospital stay since May.During this recent hospitalization, she received antibiotics and IV fluids before being discharged.She is currently on levofloxacin, which she received intravenously in the hospital. She has one more day of levofloxacin left. She is also taking methenamine hippurate, vitamin C, and estradiol. She has been hospitalized every month since May. Approximately two weeks ago, she was prescribed Macrobid for a urinary tract infection (UTI) detected during a routine urinalysis (UA). On the day of her denture appointment, she exhibited unusual behavior, including open eyes but lack of speech and excessive sleepiness, prompting a visit to the emergency room (ER). In the ER, she was diagnosed with dehydration and a persistent UTI. Her urologistprescribed estradiol, methenamine hippurate, and vitamin C as interim measures until her appointment with [facility] on 09/15/2025. The urologist suggested that her postmenopausal status might be contributing to her condition. Since starting estradiol on Thursday, she has shown improvement, with no instances of falling asleep and a cessation of hand tremors for two days. Her energy levels have also increased. Her daughter reports that her hand tremors have decreased since starting estradiol. She requires a refill of Protonix for acid reflux. 10 point review of systems is otherwise negative except as mentioned above. Past Medical History: Diagnosis Date Anxiety Asthma Back pain May Broken bones 2020 CAD (coronary artery disease) [place]estive heart [place] [place] 10[place] Congestive heart failure [place] [place]ronic [place] [place] CVA [place]cerebral vascular accident) [place] [place] DM (diabetes mellitus[place] [place] ROSANGELA (generalized anxiety disorder) GERD (gastroesophageal reflux disease) Headache Hearing problem Was born deaf- 1960 HTN (hypertension) IBS (irritable bowel syndrome) 2012 Malignant neoplasm of colon [place] [place]my[place]) [place] [place] 04/09/2016 Neuropathy Osteoporosis Vision decreased Current Outpatient Medications Medication Instructions albuterol (PROVENTIL,VENTOLIN) 2.5 mg, Inhalation, EVERY 6 HOURS PRN, Dispense box of 25 albuterol sulfate HFA 90 mcg/actuation aerosol inhaler 2 Puffs, Inhalation, EVERY 6 HOURS PRN ALPRAZolam (XANAX) 0.5 mg, Oral, DAILY PRN amLODIPine (NORVASC) 2.5 mg, Oral, DAILY ARIPiprazole (ABILIFY) 15 mg, DAILY ascorbic acid (vitamin C) (VITAMIN C) 500 mg, DAILY aspirin (MAHNAZ CHEWABLE) 81 mg, DAILY atorvastatin (LIPITOR) 80 mg, Oral, DAILY Blood-Glucose Meter,Continuous ([employer] G7 Supervising Editor Trailer) Use to test blood sugars continuously. She has to do multiple shots of insulin daily and hard to control Blood-Glucose Sensor (Dexcom G7 Sensor) Device USE DIRECTED AND CHANGE EVERY 10 DAYS budesonide-formoteroL (SYMBICORT) 160-4.5 mcg/actuation HFA Aerosol Inhaler 2 Puffs, Inhalation, TWO TIMES DAILY cetirizine (ZYRTEC) 10 mg, Oral, DAILY cholecalciferol (Vitamin D3) (VITAMIN D3) 1,000 Units, DAILY clobetasoL (TEMOVATE) 0.05 % Cream APPLY CREAM TOPICALLY TO AFFECTED AREA TWICE DAILY docusate sodium (COLACE) 200 mg, Oral, TWO TIMES DAILY estradioL (ESTRACE) 1 Gram, TWICE WEEKLY HumuLIN-R U-500 (Conc) Kwikpen 250 Units, subCUT, THREE TIMES DAILY ketoconazole (NIZORAL) 2 % Shampoo Use 10 mL to wash/shampoo levoFLOXacin (LEVAQUIN) 500 mg tablet 1 Tablet, DAILY lidocaine (LIDODERM) 5 % Adhesive Patch, Medicated USE 1-3 PATCHES TOPICALLY TO AFFECTED AREA ONCE EVERY 24 HOURS meclizine (ANTIVERT) 25 mg, Oral, THREE TIMES DAILY PRN methenamine hippurate (HIPREX) 1 Gram, TWO TIMES DAILY metoprolol tartrate (LOPRESSOR) 50 mg, Oral, TWO TIMES DAILY mupirocin (BACTROBAN) 2 % Ointment Topical, DAILY Nurtec ODT 75 mg, Oral, DAILY PRN ondansetron (ZOFRAN ODT) 4 mg, Oral, EVERY 6 HOURS PRN, Dissolve tablet on top of tongue, then swallow with saliva. oxyCODONE (ROXICODONE) 10 mg, Oral, THREE TIMES DAILY PRN pantoprazole (PROTONIX) 40 mg, Oral, TWO TIMES DAILY portable oxygen Face to Face completed within 30 days: yes Length of Need: 99 months By: Nasal Cannula Continuously at 3 L/min. power wheelchair Face to Face completed within 6 months: yes Length of Need: 99 months pregabalin (LYRICA) 100 mg, Oral, TWO TIMES DAILY spironolactone (ALDACTONE) 25 mg, Oral, DAILY tirzepatide (Mounjaro) 15 mg/0.5 mL Pen Injector Use 15mg SQ every 7 days traZODone (DESYREL) 150 mg tablet TAKE 1 TO 2 TABLETS BY MOUTH AT BEDTIME NEEDED FOR INSOMNIA vilazodone (VIIBRYD) 40 mg, DAILY Past Surgical History: Procedure Laterality Date HX APPENDECTOMY HX CHOLECYSTECTOMY HX COLECTOMY colon CA HX COLONOSCOPY HX HEART CATHETERIZATION HX RETINAL DETACHMENT REPAIR HX TONSIL AND ADENOIDECTOMY HX TONSILLECTOMY LITHOTRIPSY Past social, family, and medical history reviewed. BP 104/70 (BP Location: Left arm, Patient Position (BP): Sitting, BP Cuff Size: Large Adult) Pulse (!) 57 Temp 97.7 ??F (36.5 ??C) (Temporal) Resp 18 Ht 5' 6 (1.676 m) Wt 110.2 kg (243 lb) SpO2 95% BMI 39.22 kg/m?? Physical Exam Physical Exam Constitutional: Appearance: Normal appearance. HENT: Head: Normocephalic. Right Ear: External ear normal. Left Ear: External ear normal. Eyes: Conjunctiva/sclera: Conjunctivae normal. Cardiovascular: Rate and Rhythm: Normal rate and regular rhythm. Pulses: Normal pulses. Heart sounds: Normal heart sounds. Pulmonary: Effort: Pulmonary effort is normal. Breath sounds: Normal breath sounds. Abdominal: General: Bowel sounds are normal. Palpations: Abdomen is soft. Musculoskeletal: General: Normal range of motion. Cervical back: Neck supple. Skin: General: Skin is warm. Neurological: General: No focal deficit present. Mental Status: She is alert. Motor: Tremor (Slight) present. Psychiatric: Mood and Affect: Mood normal. Behavior: Behavior normal. Assessment & Plan ICD-10-CM ICD-9-CM 1. Hospital discharge follow-up Z09 V67.59 CBC WITH DIFFERENTIAL COMPREHENSIVE METABOLIC PANEL 2. Recurrent UTI N39.0 599.0 CBC WITH DIFFERENTIAL COMPREHENSIVE METABOLIC PANEL URINE CULTURE CBC WITH DIFFERENTIAL COMPREHENSIVE METABOLIC PANEL 3. Gastroesophageal reflux disease, unspecified whether esophagitis present K21.9 530.81 pantoprazole (PROTONIX) 40 mg Tablet, Delayed Release (E.C.) Plan - Hospitalized from Thursday to Thursday due to dehydration and a urinary tract infection (UTI). Treated with intravenous fluids and antibiotics. - Currently on levofloxacin, methenamine hippurate, vitamin C, and estradiol. Will complete levofloxacin course tomorrow. - A urine culture will be collected after completion of Levaquin. - Follow-up with urologist scheduled for 09/15/2025. - Experiencing acid reflux and requires a refill of Protonix. - Prescription for Protonix has been sent to pharmacy. Follow-up: Follow-up with Dr. Iyer scheduled for 08/30/2025. PERLA Hickey The author of this note, patient (or authorized sales representative), and all other persons present consent to the audio recording of this visit for charting documentation purposes. This note was automatically generated, edited by a [employer] Carter, and finalized by JULIA Hickey. RAFT CABIN CLEANER documented in this encounter Plan of Treatment Upcoming Encounters Date Type Department Care Team (Late st Contact Info) Description 08/30/2025 2:40 PM AIRCRAFT CABIN CLEANER Office Visit [facility] [address] [place] [phone] Leah Millard, DO [address] [place] [facility] [place] [phone] 09/15/2025 11:00 AM AIRCRAFT CABIN CLEANER Office Visit [facility] [place] [address] [place] [address] Radha Navarro ATHLETIC INSTRUCTOR [address] [place] [address] 11/28/2025 10:40 AM CDT Office Visit [facility] [place] [address] [facility] [place] [phone] VeniceLeah jay, DO [address] [place] [phone] Scheduled Orders Name Type Priority Associated Diagnoses Orde r Schedule URINE CULTURE Microbiology Routine Recurrent UTI Expected: 08/15/2025, Expires: 08/08/2026 documented as of this encounter Procedures Procedure Name Priority Date/Time Associated Diagnosis Comments CBC WITH DIFFERENTIAL Routine 08/08/2025 11:36 AM AIRCRAFT CABIN CLEANER Recurrent UTI COMPREHENSIVE METABOLIC PANEL Routine 08/08/2025 11:36 AM AIRCRAFT CABIN CLEANER Recurrent UTI documented in this encounter Results * (ABNORMAL) COMPREHENSIVE METABOLIC PANEL (08/08/2025 11:36 AM AIRCRAFT CABIN CLEANER) GLUCOSE 120(H) 65 - 99 mg/dL [facility] Comment: Fasting reference interval For someone without known diabetes, a glucose value between 100 and 125 mg/dL is consistent with prediabetes and should be confirmed with a follow-up test. BUN 11 7 - 25 mg/dL [facility] CREATININE 1.11(H) 0.50 - 1.05 mg/dL [facility] GFR 55(L) > OR = 60 mL/min/1.7 3m2 [facility] BUN/CREAT RATIO 10 6 - 22 (calc) [facility] SODIUM 140 135 - 146 mmol/L [facility] POTASSIUM 4.2 3.5 - 5.3 mmol/L [facility] CHLORIDE 101 98 - 110 mmol/L [facility] CO2 31 20 - 32 mmol/L [facility] CALCIUM 8.9 8.6 - 10.4 mg/dL [facility] TOTAL PROTEIN 6.3 6.1 - 8.1 g/dL [facility] ALBUMIN 3.4(L) 3.6 - 5.1 g/dL [facility] GLOBULIN 2.9 1.9 - 3.7 g/dL (calc) [facility] ALBUMIN/GLOBULIN RATIO 1.2 1.0 - 2.5 (calc) [facility] BILIRUBIN TOTAL 0.4 0.2 - 1.2 mg/dL [facility] ALKALINE PHOSPHATASE 117 37 - 153 U/L [facility] AST 11 10 - 35 U/L [facility] ALT 10 6 - 29 U/L [facility] Comment: FASTING:UNKNOWN FASTING: UNKNOWN Test Performed at: [facility] [address] [facility] [place] [address] Funmi Medellin MD Blood 08/08/2025 11:3 6 AM AIRCRAFT CABIN CLEANER 08/08/2025 11:37 AM AIRCRAFT CABIN CLEANER December Gaxiola [facility] CHEMISTRY ORDERABLES Final Resul t [facility] [phone] [facility] [address] [place] [address] * (ABNORMAL) CBC WITH DIFFERENTIAL (08/08/2025 11:36 AM AIRCRAFT CABIN CLEANER) WBC 13.3(H) 3.8 - 10.8 Thousand/u L [facility] RBC 4.44 3.80 - 5.10 Million/uL [facility] HEMOGLOBIN 12.0 11.7 - 15.5 g/dL [facility] HEMATOCRIT 38.4 35.9 - 46.0 % [facility] MCV 86.5 81.4 - 101.7 fL [facility] MCH 27.0 27.0 - 33.0 pg [facility] MCHC 31.3(L) 31.6 - 35.4 g/dL [facility] Comment: For adults, a slight decrease in the calculated MCHC value (in the range of 30 to 32 g/dL) is most likely not clinically significant; however, it should be interpreted with caution in correlation with other red cell parameters and the patient's clinical condition. RDW 13.5 11.0 - 15.0 % [facility] PLATELETS 258 140 - 400 Thousand/u L [facility] MPV 11.0 7.5 - 12.5 fL [facility] NEUTROPHIL ABSOLUTE 8,751(H) 1,500 - 7,800 cells/uL [facility] LYMPHOCYTE ABSOLUTE 3,684 850 - 3,900 cells/uL [facility] MONOCYTE ABSOLUTE 545 200 - 950 cells/uL [facility] EOSINOPHIL ABSOLUTE 253 15 - 500 cells/uL [facility] BASOPHILS ABSOLUTE 67 0 - 200 cells/uL [facility] NEUTROPHIL 65.8 % [facility] LYMPHOCYTES 27.7 % [facility] MONOCYTE 4.1 % [facility] EOSINOPHILS 1.9 % [facility] BASOPHILS 0.5 % [facility] Comment: FASTING:UNKNOWN FASTING: UNKNOWN Test Performed at: [facility] [address] [place] [address] Funmi Medellin MD Blood 08/08/2025 11:3 6 AM AIRCRAFT CABIN CLEANER 08/08/2025 11:37 AM AIRCRAFT CABIN CLEANER December ATHLETIC INSTRUCTOR HEMATOLOGY ORDERABLES Final Resu lt [facility] [phone] [facility] [address] [place] [address] documented in this encounter Visit Diagnoses Diagnosis Hospital discharge follow-up- Primary Other follow-up examination Recurrent UTI Urinary tract infection, site not specified Gastroesophageal reflux disease, unspecified whether esophagitis present documented in this encounter Additional Health Concerns Assessment Noted Time PHQ-9 Depression Total Score: 2 10/11/19 25 12:26 PM AIRCRAFT CABIN CLEANER documented as of this encounter Care Teams Scrap Hooker Relationship Specialty Start Date End Date Leah Millard DO [address] [place] [address] PCP - General Family Practice 10/05/18 documented as of this encounter
--- OUTSIDE RECORDS SUMMARY | 2025-08-09 10:57 | XMS_ITS | Encounter Summary ---
Author Organization [facility] Address [address] [place] [address] Care Team Providers Care Hand Ii Blocker Name Role Phone Leah Millard DO Primary Care Provider [phone]- [phone] Encounter Details Date Type Department Care Team (Late Contact Info) Description 08/07/2025 Orders Only [facility] [address] [place] [address] Provider, Abstract NO ADDRESS ON [...] on file Legal Sex Female 6:02 AM CLAIM SERVICE REPRESENTATIVE Gender Identity Not on file Sexual Orientation Not on file documented as of this encounter Plan of Treatment Upcoming Encounters Date Type Department Care Team (Late st Contact Info) Description 08/30/2025 2:40 PM CLAIM SERVICE REPRESENTATIVE Office Visit [facility] [place] [address] [place] [phone] Leah Millard DO [address] [place] [address] 09/15/2025 11:00 AM CLAIM SERVICE REPRESENTATIVE Office Visit [facility] [place] [address] [place] [phone] Radha Navarro FNP [address] [place] [phone] 11/28/2025 10:40 AM CDT Office Visit [facility] [place] [address] [place] [phone] Leah Millard DO [address] [place] [address] documented as of this encounter Procedures Procedure Name Priority Date/Time Associated Diagnosis Comments COMPREHENSIVE METABOLIC PANEL Routine 08/04/2025 10:36 AM CLAIM SERVICE REPRESENTATIVE documented in this encounter Results * COMPREHENSIVE METABOLIC PANEL (08/04/2025 10:36 AM CLAIM SERVICE REPRESENTATIVE) Blood us Abstract Provider CHEMISTRY ORDERABLES Final Res ult documented in this encounter Visit Diagnoses Not on filedocumented in this encounter Additional Health Concerns Assessment Noted Time PHQ-9 Depression Total Score: 2 10/11/19 25 12:26 PM CLAIM SERVICE REPRESENTATIVE documented as of this encounter Care Teams Hand Ii Blocker Relationship Specialty Start Date End Date Leah Millard DO [address] [place] [phone] PCP - General Family Practice 10/05/18 documented as of this encounter
--- OUTSIDE RECORDS SUMMARY | 2025-08-09 10:57 | XMS_ITS | Encounter Summary ---
Author Organization [facility] Address [address] [place] [address] Care Team Providers Care Manager Progressive Care Name Role Phone Leah Millard DO Primary Care Provider [phone]- [phone] Encounter Details Date Type Department Care Team (Late Contact Info) Description 08/03/[address] [facility] [address] [place] [address] Provider, Abstract NO ADDRESS ON [...] on file Legal Sex Female 6:02 AM METAL CEILING BUILDER Gender Identity Not on file Sexual Orientation Not on file documented as of this encounter Plan of Treatment Upcoming Encounters Date Type Department Care Team (Late st Contact Info) Description 08/30/2025 2:40 PM METAL CEILING BUILDER Office Visit [facility] Medicine [place] [address] [place] [phone] Leah Millard DO [address] [place] [address] 09/15/2025 11:00 AM METAL CEILING BUILDER Office Visit [facility] [place] [address] [place] [phone] Radha Navarro FNP [address] [place] [phone] 11/28/2025 10:40 AM CDT Office Visit [facility] Medicine [place] [address] [place] [phone] Leah Millard DO [address] [place] [address] documented as of this encounter Procedures Procedure Name Priority Date/Time Associated Diagnosis Comments COMPREHENSIVE METABOLIC PANEL Routine 08/02/2025 1:11 PM METAL CEILING BUILDER documented in this encounter Results * COMPREHENSIVE METABOLIC PANEL (08/02/2025 1:11 PM METAL CEILING BUILDER) Blood us Abstract Provider CHEMISTRY ORDERABLES Final Res ult documented in this encounter Visit Diagnoses Not on filedocumented in this encounter Additional Health Concerns Assessment Noted Time PHQ-9 Depression Total Score: 2 10/11/19 25 12:26 PM METAL CEILING BUILDER documented as of this encounter Care Teams Manager Progressive Care Relationship Specialty Start Date End Date Leah Millard DO [address] [place] [phone] PCP - General Family Practice 10/05/18 documented as of this encounter
--- OUTSIDE RECORDS SUMMARY | 2025-08-09 10:57 | XMS_ITS | Encounter Summary ---
Author Organization [facility] Address [address] [place] [address] Care Team Providers Care Fence Installer Helper Name Role Phone Leah Millard DO Primary Care Provider Encounter Details Date Type Department Care Team (Late Contact Info) Description 07/28/2025 Results Follow-Up [facility] [address] [place] [address] Leah Millard DO [address] [place] [address] URINE CULTURE Social History Tobacco [...] on file Legal Sex Female 6:02 AM INCOME TAX CONSULTANT Gender Identity Not on file Sexual Orientation Not on file documented as of this encounter Plan of Treatment Upcoming Encounters Date Type Department Care Team (Late st Contact Info) Description 08/30/2025 2:40 PM INCOME TAX CONSULTANT Office Visit [facility] [address] [place] [address] Leah Millard DO [address] [place] [facility] [place] [phone] 09/15/2025 11:00 AM INCOME TAX CONSULTANT [facility] [place] [address] [facility] [place] [phone] Radha Navarro FNP [address] [place] [phone] 11/28/2025 10:40 AM CDT Office Visit [facility] [address] [place] [address] Leah Millard DO [address] [place] [address] documented as of this encounter Visit Diagnoses Not on filedocumented in this encounter Additional Health Concerns Assessment Noted Time PHQ-9 Depression Total Score: 2 10/11/19 25 12:26 PM INCOME TAX CONSULTANT documented as of this encounter Care Teams Fence Installer Helper Relationship Specialty Start Date End Date Leah Millard DO [address] [place] [phone] PCP - General Family Practice 10/05/18 documented as of this encounter
--- OUTSIDE RECORDS SUMMARY | 2025-08-09 10:57 | XMS_ITS | Clinical Summary ---
Author Organization [facility] Address [address] [place] [address] Care Team Providers Care Stitchdowns Toe Former Name Role Phone Leah Millard Primary Care [...] hyperglycemia, with long-term current use of insulin ([facility]) Check blood sugars TID. Meter [...] unspecified vessel or lesion type, unspecified whether [place] tribe or transplanted heart Take 1 Tablet (30 mg) by mouth daily in the morning. 90 Tablet 3 08/13/20 20 Active cyanocobalamin 1,000 mcg TabletIndications: Vitamin B12 deficiency (non anemic) Take 1 Tablet (1,000 mcg) by mouth daily. 90 Tablet 3 08/13/20 20 Active montelukast (SINGULAIR) 10 mg tabletIndications: Chronic obstructive pulmonary disease, unspecified COPD type ([facility]) Take 1 Tablet (10 mg) [...] Anxiety. 30 Tablet 10/09/19 21 Active Insulin Mcintosh, Disposable, 32 gauge x 5/16 NeedleIndications: Type [...] disease, with long-term current use of insulin ([facility]) Inject 30 units SQ two times daily 15 mL 2 01/29/20 Active dapagliflozin (Farxiga) 10 mg TabletIndications: Elevated blood sugar,Type 2 diabetes mellitus with stage 3a chronic kidney disease, with long-term current use of insulin ([facility]) Take 1 Tablet (10 mg) by mouth daily. 30 Tablet 3 01/29/20 Active atorvastatin (LIPITOR) 40 mg tabletIndications: Mixed hyperlipidemia Take 1 Tablet (40 mg) by mouth daily. 90 Tablet 4 01/29/20 Active insulin lispro (HumaLOG KwikPen Insulin) 200 unit/mL pen syringeIndications :Type 2 diabetes mellitus with hyperglycemia, with long-term current use of insulin ([facility]),Type 2 diabetes mellitus with other circulatory complication, with long-term current use of insulin ([facility]) Inject subcutaneous 3 times daily [...] hyperglycemia, with long-term current use of insulin ([facility]) Take 1 Tablet (50 mg) [...] Chronic obstructive pulmonary disease 05/29/2015 Atherosclerosis of [place] tribe co ronary artery of s[place] tribe heart without angina pectoris 05/29/2015 Diabetes mellitus 05/29/2015 Resolved Problems Problem Noted Date Diagnosed Date Resolved Date Stable angina 11/02/2019 01/01/2020 Morbid obesity with body mas s index of 40.0-49.9 11/02/2019 11/08/2020 Tobacco use 11/02/2019 01/19/2021 HI (myocardial infarction) 04/09/2016 0 11/02/2019 Immunizations Immunization [...] on file Legal Sex Female 4:46 AM 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 Gender Identity Not on file Sexual Orientation [...] 10/24/2020 HEMOGLOBIN A1C Routine 10/09/2020 12:19 PM 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 Type 2 diabetes mellitus with other circulatory complication, with long-term current use of insulin ([facility]) MAMMO SCREEN BILAT W OR WO CAD Routine 01/05/2019 Screening for breast cancer HM DIABETES FOOT EXAM Routine 12/27/2018 MICROALBUMIN/CREATI NINE RATIO, RANDOM UR Routine 10/05/2018 1:32 PM 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 Type 2 diabetes mellitus with hyperglycemia, with long-term current use of insulin ([facility]) from Last 3 Months or [...] CHEMISTRY ORDERABLES Final Result Performing Organization Address City/[facility]/ZIP Co de Phone Number EXTERNAL LAB * HEMOGLOBIN A1C (10/09/2020 12:19 PM 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) HEMOGLOBIN A1C 5.3 See Comment % 10/09/2020 8:27 PM 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 [facility] EST. AVG GLUCOSE, A1C 105 mg/dL 10/09/2020 8:27 PM 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 [facility] Blood Venipuncture / Unknown 10/09/2020 12:19 PM 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 10/09/2020 8:09 PM 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 Narrative [facility] - 10/09/2020 8:27 PM 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 HGB A1C INTERPRETATION NORMAL: <5.7% PRE-DIABETES: 5.7 - 6.4% DIABETES: 6.5% OR GREATER Falsely low A1C measurements can occur when: 1. Anemia and/or hemolytic anemia is present. 2. Hemoglobin variants present. 3. Renal failure. 4. Transfusion of blood product in the last 120 days. We recommend ordering a fructosamine test([id number]) to more accurately assess glycemic status if any of the above conditions are present. Leah Millard DO CHEMISTRY ORDERABLES Final Result Performing Organization Address City/[facility]/ZIP Co de Phone Number [facility] CLIA# [id number] [address] [place] [address] * MAMMO SCREEN BILAT W OR WO CAD (01/05/2019) Anatomical Region Laterality Modality Breast Bilateral Mammography Marleni COYLEP MAMMO ORDERABLES Final R esult * HM DIABETES FOOT EXAM (12/27/2018) Marleni COYLEP HEALTH MAINTENANCE Final Result * (ABNORMAL) MICROALBUMIN/CREATININE RATIO, RANDOM UR (10/05/2018 1:32 PM 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) MICROALBUMIN, URINE <1.2 No Reference Range mg/dL 10/05/2018 9:36 PM [facility] CREATININE, URINE 20.2(L) 29.0 - 226.0 mg/dL 10/05/2018 9:36 PM [facility] Comment: Reference Range varies with fluid intake and diet. Urine URINE SPECIMEN OBTAINED BY CLEAN CATCH PROCEDURE / Unknown Collection / Unknown 10/05/2018 1:32 PM 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 10/05/2018 7:59 PM 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 Narrative [facility] - 10/05/2018 9:36 PM 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 Condition Microalbumin/Creat ratio Normal Males <17 Normal Females <25 Microalbuminuria Males 17-299 Microalbuminuria Females 25-299 Overt proteinuria >=300 Unable to calculate urine microalbumin/creatinine ratio because urine microalbumin result is outside of reportable range. [facility] URINE ORDERABLES Final R esult [facility] CLIA# [id number] [address] [place] [id number] from Last 3 Months or Most Recently Relevant to Health Maintenance [place] [address] [place] [address] [place]ICA[place] Care Teams Stitchdowns Toe Former Relationship Specialty Start Date End Date Leah Millard DO [address] [place] [phone] PCP - General Family Practice 10/05/18
--- OUTSIDE RECORDS SUMMARY | 2025-08-09 10:57 | XMS_ITS | Encounter Summary ---
Author Organization [facility] Address 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 Gender Identity Not on file Sexual Orientation Not on file documented as of this encounter Plan of Treatment Upcoming Encounters Date Type Department Care Team (Late st Contact Info) Description 08/30/2025 2:40 PM BOARD TURNER Office Visit [facility] [address] [place] [address] Leah Millard, DO [address] [place] [facility] [phone] 09/15/2025 11:00 AM BOARD TURNER [facility] [place] [address] [place] [phone] Radha Navarro FNP [address] [place] [phone] 11/28/2025 10:40 AM CDT Office Visit [facility] [address] [place] [address] Leah Millard DO [address] [place] [phone] documented as of this encounter Visit Diagnoses Not on filedocumented in this encounter Additional Health Concerns Assessment Noted Time PHQ-9 Depression Total Score: 2 10/11/19 25 12:26 PM BOARD TURNER documented as of this encounter Care Teams Fuel Buyer Relationship Specialty Start Date End Date Leah Millard DO [address] [place] [phone] PCP - General Family Practice 10/05/18 documented as of this encounter
--- OUTSIDE RECORDS SUMMARY | 2025-08-09 10:57 | XMS_ITS | Clinical Summary ---
Author Organization [facility] [place] [facility] Address 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 She has to do multiple shots of insulin daily and hard to control 1 Each 023 Active power wheelchairIndicati ons:Chronic midline low back pain with right-sided sciatica,Type 2 diabetes mellitus with stage 3a chronic kidney disease, with long-term current use of insulin (CMS/HCC),Essentia l hypertension,Essen tial tremor,Atheroscler osis of modoc coronary artery of modoc heart without angina pectoris,Multiple sclerosis,History of CVA [...] Comment) (migraine). 27 Tablet 4 024 Active HumuLIN-R U-500, Conc, [...] then swallow with saliva. 30 Tablet 6 Active amLODIPine (NORVASC) 2.5 mg tablet Take [...] AND CHANGE EVERY 10 DAYS 3 Each Active ketoconazole (NIZORAL) 2 % Shampoo Use [...] by mouth 2 times daily. 2025 Active levoFLOXacin (LEVAQUIN) 500 mg tablet Take 1 Tablet by mouth daily. Active pantoprazole (PROTONIX) 40 mg Tablet, Delayed Release (E.C.)Indications: Gastroesophageal reflux disease, unspecified whether esophagitis present Take 1 Tablet (40 mg) by mouth 2 times daily. 180 Tablet 4 025 Active ascorbic acid, vitamin C, (VITAMIN C) 500 mg tablet Take 500 mg by mouth daily. Active pantoprazole (PROTONIX) 40 mg Tablet, Delayed Release (E.C.) Take 1 tablet by mouth twice daily 180 Tablet 4 024 2024 Discontinued(R eorder) pregabalin (LYRICA) 100 mg Capsule Take 1 Capsule (100 mg) by mouth 2 times daily. 60 Capsule 5 025 2024 Discontinued lidocaine (LIDODERM) 5 % Adhesive Patch, Medicated USE 1 TO 3 PATCHES EXTERNALLY TO AFFECTED AREA EVERY 24 HOURS 90 Patch 2 025 2024 Discontinued nitrofurantoin (MACROBID) 100 mg capsule Take 1 Capsule (100 mg) by mouth 2 times daily. 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 05/29/2015 10/17/2024 Encounters Date Type Department Care Team Description 08/09/2025 Results Follow-Up [facility] [address] [place] [phone] December, CBC WITH DIFFERENTIAL, COMPREHENSIVE METABOLIC PANEL 08/08/2025 11:00 AM TEA PLANTATION WORKER Office Visit [facility] [address] [facility] [place] [facility] [place] [address] Gaxioladecember, Hospital discharge follow-up (Primary Dx); Recurrent UTI; Gastroesophageal reflux disease, unspecified whether esophagitis present 08/07/2025 Orders Only [facility] [address] [place] [address] Provider, Abstract 08/04/2025 Telephone [facility] [address] [facility] [place] [phone] Leah Millard DO Provider Call 08/03/2025 Orders Only [facility] HIM [address] [place] [address] Provider, Abstract 07/28/2025 Results Follow-Up [facility] [address] [place] [address] Leah Millard DO URINE CULTURE 07/26/2025 4:20 PM TEA PLANTATION WORKER Office Visit [facility] [address] [place] [phone] Leah Millard DO Recurrent UTI (Primary Dx); Type 2 diabetes mellitus with diabetic polyneuropathy, with long-term current use of insulin ([facility]); Severe obesity (BMI 35.0-39.9) with comorbidity ([facility]); Multiple sclerosis; Chronic respiratory failure with hypoxia and hypercapnia ([facility]); Abnormality of gait and mobility; Mixed hyperlipidemia; Mixed stress and urge urinary incontinence; Chronic midline low back pain with right-sided sciatica; Essential tremor; Bilateral deafness; Obstructive sleep apnea syndrome; Essential hypertension; Atherosclerosis of modoc coronary artery of modoc heart without angina pectoris; Primary insomnia; History of non-ST elevation myocardial infarction (NSTEMI); History of CVA with residual deficit; Generalized anxiety disorder; History of colon cancer 07/23/2025 Refill [facility] [address] [place] [address] Leah Millard DO 07/19/2025 Refill [facility] [address] [place] [address] Leah Millard, 07/19/2025 Telephone [facility] [address] [place] [address] Leah Millard DO Remote Monitoring ; Patient Communication 07/14/[address] [place], [place] [address] Provider, Abstract urology referral appointment 07/11/2025 Telephone [facility] [address] [place] [address] Leah Millard DO Needs Orders Written 07/07/2025 Results Follow-Up [facility] [address] [place] [phone] Nighat Sharpe, DOSIER OPERATOR CBC WITH DIFFERENTIAL, COMPREHENSIVE METABOLIC PANEL 07/05/2025 11:20 AM CDT Office Visit [facility] [address] [place] [phone] Nighat Sharpe, DOSIER OPERATOR Hospital discharge follow-up (Primary Dx); Sepsis due to Escherichia coli without acute organ dysfunction (CMS/HCC); Recurrent UTI; Frail elderly; Chronic midline low back pain with right-sided sciatica 07/05/2025 Orders Only [facility] [address] [place] [phone] Nighat Sharpe, DOSIER OPERATOR Chronic midline low back pain with right-sided sciatica 07/04/2025 Results Follow-Up [facility] [address] [place] [phone] Leah Millard DO URINE CULTURE 07/04/2025 Telephone [facility] [address] [place] [phone] Leah Millard DO Patient Communication 07/03/2025 Medication Prior Auth Encounter [facility] Prescription Management Dept [address] [place] [address] DR JOSÉ LUIS GAY, [place] [address] Crystal Dyson, PHARMACIST 07/03/2025 Medication Prior Auth Encounter [facility] [address] [place] [phone] Leah Millard DO 07/03/2025 Orders Only [facility] [place] [facility] [place] [address] [place] [address] Provider, Abstract 06/29/2025 4:20 PM CDT Office Visit [facility] [address] [place] [phone] Leah Millard DO Need for influenza vaccination (Primary Dx); Recurrent UTI; Severe obesity (BMI 35.0-39.9) with comorbidity ([facility]); Type 2 diabetes mellitus with diabetic polyneuropathy, with long-term current use of insulin ([facility]); Multiple sclerosis; Chronic respiratory failure with hypoxia and hypercapnia ([facility]); Abnormality of gait and mobility; Mixed hyperlipidemia; Chronic midline low back pain with right-sided sciatica; Essential tremor; Bilateral deafness; Obstructive sleep apnea syndrome; Essential hypertension; Atherosclerosis of modoc coronary artery of modoc heart without angina pectoris; Primary insomnia; History of non-ST elevation myocardial infarction (NSTEMI); History of CVA with residual deficit; History of colon cancer; Generalized anxiety disorder 06/21/2025 Refill [facility] [address] [place] [phone] December, DOSIER OPERATOR OAB (overactive bladder) 06/12/2025 Refill [facility] [address] [place] [phone] Leah Millard DO 06/02/2025 Orders Only [facility] [address] [place] [address] Leah Millard DO Recurrent UTI (Primary Dx) 06/02/2025 Results Follow-Up [facility] [address] [place] [phone] Leah Millard DO POC URINALYSIS DIPSTICK AUTOMATED 06/02/2025 Orders Only [facility] [address] [place] [address] Leah Millard DO 05/31/2025 9:20 AM CDT Office Visit [facility] [address] [place] [address] Leah Millard DO Multiple sclerosis (Primary Dx); Recurrent UTI; Acute cystitis without hematuria; Essential hypertension; Atherosclerosis of modoc coronary artery of modoc heart without angina pectoris; Chronic respiratory failure with hypoxia and hypercapnia ([facility]); Mixed hyperlipidemia; History of non-ST elevation myocardial infarction (NSTEMI); Generalized anxiety disorder; UTI symptoms; Severe obesity (BMI 35.0-39.9) with comorbidity ([facility]); Obstructive sleep apnea syndrome; Type 2 diabetes mellitus with diabetic polyneuropathy, with long-term current use of insulin ([facility]); Abnormality of gait and mobility; OAB (overactive bladder); Chronic midline low back pain with right-sided sciatica; Degenerative disc disease, cervical; Bilateral deafness; Essential tremor; History of colon cancer; History of kidney stones; Primary insomnia 05/27/2025 Refill [facility] [address] [place] [address] Leah Millard DO Chronic midline low back pain with right-sided sciatica 05/23/2025 External Device Data STL ABSTRACTION Provider, Abstract 05/22/2025 Orders Only [facility] [address] [place] [address] Provider, Abstract 05/16/2025 External Device Data STL ABSTRACTION Provider, Abstract 05/16/2025 External Device Data STL ABSTRACTION Provider, Abstract from Last 3 Months Immunizations Immunization Administration [...] Max Freyermuth Heart Disease Brother 2 Cj Everettmutchandana Heart Disease Brother 3 Martin Everettmutchandana Cancer Father Rob Everettmutchandana Colon Cancer Father Rob Everettmutchandana Heart Disease Father Rob Gunter Hypertension Father Rob Gunter Other Father Rob Gunter Parkinson di sease Depression Mother Margi Gunter Mental illness Mother Margi Gunter Other Mother Margi Gunter Parkison disease Colon Cancer Other SELF Relation Name Status Comments Brother 1 Max Everettmuth Alive Brother 2 Cj Everettmuth Brother 3 Martin Everettmuth Father Rob Gunter [...] on file Legal Sex Female 6:02 AM TEA PLANTATION WORKER Gender Identity Not on file Sexual Orientation Not on file Last Filed Vital Signs Vital Sign Reading Time Taken Comments Blood Pressure 104/70 08/08/2025 11:13 AM TEA PLANTATION WORKER Pulse 57 08/08/2025 11:13 AM TEA PLANTATION WORKER Temperature 36.5 C (97.7 F) 08/08/2025 11:13 AM TEA PLANTATION WORKER Respiratory Rate 18 08/08/2025 11:13 AM TEA PLANTATION WORKER Oxygen Saturation 95% 08/08/2025 11:13 AM TEA PLANTATION WORKER Inhaled Oxygen Concentration - - Weight 110.2 kg (243 lb) 08/08/2025 11:13 AM TEA PLANTATION WORKER Height 167.6 cm (5' 6 ) 08/08/2025 11:13 AM TEA PLANTATION WORKER Body Mass Index 39.22 08/08/2025 11:13 AM TEA PLANTATION WORKER Plan of Treatment Upcoming Encounters Date Type Department Care Team (Late st Contact Info) Description 08/30/2025 2:40 PM TEA PLANTATION WORKER Office Visit [facility] [address] [place] [address] Leah Millard, DO [address] [place] [address] 09/15/2025 11:00 AM TEA PLANTATION WORKER Office Visit [facility] Urology [address] [place] [address] Radha Navarro [place] [address] [place] [address] 11/28/2025 10:40 AM CDT Office Visit [facility] [address] [place] [address] Leah Millard, DO [address] [place] [address] Health Maintenance Due Date Last Done Comments [...] SCREENING 03/23/2025 03/23/20, 01/05/2019, 01/05/2019 COVID-19 Vaccine ( - 2024-2 6 season) 2025 08/13/2021, 02/04/2021, 01/07/2021 Traditional Medicare (O) A nnual Wellness Visit 10/12/2025 10/11/2024 DIABETES [...] 04/04/2020 Colorectal Cancer Screening Discontinued Medicare Advantage ([place]) Preventative Visit/Annual Wellness Visit Completed 10/11/2024 KHE uACR (Auto Order) Completed 02/14/2025 , 11/08/2024, 03/02/2024, Additional history exists INFLUENZA VACCINE Completed 07/26/2025, , 06/04/2023, Additional history exists KHE eGFR (Auto Order) Completed 08/08/2025 , 08/04/2025, 08/02/2025, Additional history exists FIT-DNA Q 3 years Discontinued FIT/FOBT Q 1 year Discontinued Flex Sig/CT Colonography Q 5 years Discontinued Procedures Procedure Name Priority Date/Time Associated Diagnosis Comments COMPREHENSIVE METABOLIC PANEL Routine 08/08/2025 11:36 AM TEA PLANTATION WORKER Recurrent UTI CBC WITH DIFFERENTIAL Routine 08/08/2025 11:36 AM TEA PLANTATION WORKER Recurrent UTI COMPREHENSIVE METABOLIC PANEL Routine 08/04/2025 10:36 AM TEA PLANTATION WORKER COMPREHENSIVE METABOLIC PANEL Routine 08/02/2025 1:11 PM TEA PLANTATION WORKER URINE CULTURE Routine 07/26/2025 4:55 PM TEA PLANTATION WORKER Recurrent UTI POC URINALYSIS DIPSTICK NON AUTOMATED Routine 07/26/2025 4:00 PM TEA PLANTATION WORKER Recurrent UTI COMPREHENSIVE METABOLIC PANEL Routine 07/05/2025 11:49 AM CDT Hospital discharge follow-up Sepsis due to Escherichia coli without acute organ dysfunction (CMS/HCC) Recurrent UTI CBC WITH DIFFERENTIAL Routine 07/05/2025 11:49 AM CDT Hospital discharge follow-up Sepsis due to Escherichia coli without acute organ dysfunction (CMS/HCC) Recurrent UTI COMPREHENSIVE METABOLIC PANEL Routine 07/03/2025 [...] cystitis without hematuria Essential hypertension Atherosclerosis of modoc coronary artery of modoc heart without angina pectoris Chronic respiratory failure [...] cystitis without hematuria Essential hypertension Atherosclerosis of modoc coronary artery of modoc heart without angina pectoris Chronic respiratory failure [...] cystitis without hematuria Essential hypertension Atherosclerosis of mod[place] coronary artery of modoc heart without angina pectoris Chronic respiratory failure [...] cystitis without hematuria Essential hypertension Atherosclerosis of [place] coronary artery of modoc heart without angina pectoris Chronic respiratory failure [...] cystitis without hematuria Essential hypertension Atherosclerosis of [place] coronary artery of modoc heart without angina pectoris Chronic respiratory failure with hypoxia and hypercapnia (CMS/HCC) Mixed hyperlipidemia History of non-ST elevation myocardial infarction (NSTEMI) Generalized anxiety disorder UTI symptoms Severe obesity (BMI 35.0-39.9) with comorbidity (CMS/HCC) Obstructive sleep apnea syndrome Type 2 diabetes mellitus with diabetic polyneuropathy, with long-term current use of insulin (CMS/[facility]) POC URINALYSIS DIPSTICK AUTOMATED Routine 05/31/2025 10:36 AM CDT Recurrent UTI Acute cystitis without hematuria Essential hypertension Atherosclerosis of modoc coronary artery of modoc heart without angina pectoris Chronic respiratory failure with hypoxia and hypercapnia (CMS/HCC) Mixed hyperlipidemia History of non-ST elevation myocardial infarction (NSTEMI) Generalized anxiety disorder UTI symptoms Severe obesity (BMI 35.0-39.9) with comorbidity ([facility]/HCC) Obstructive sleep apnea syndrome URINE CULTURE Routine 05/31/2025 10:33 AM CDT Recurrent UTI COMPREHENSIVE METABOLIC PANEL Routine 05/21/2025 12:50 PM CDT DIABETES EYE EXAM Routine 12/20/2024 10:14 AM CDT MICROALBUMIN/CREATININ E RATIO, RANDOM UR Routine 11/08/2024 2:52 PM TEA PLANTATION WORKER Type 2 diabetes mellitus with stage 3a chronic kidney disease, with long-term current use of insulin ([facility]) MAMMO 3D BON SCREEN BILAT W OR WO CAD Routine 03/23/2024 9:51 AM CDT Screening mammogram, encounter for ENDOSCOPY, COLON, SCREENING 04/04/2020 12:00 AM CDT DIABETES FOOT EXAM 12/27/2018 12:00 AM CDT from Last 3 Months or Most Recently Relevant to Health Maintenance Results * (ABNORMAL) CBC WITH DIFFERENTIAL (08/08/2025 11:36 AM TEA PLANTATION WORKER) Only the most recent of3 resultswithin the time period is included. WBC 13.3(H) 3.8 - 10.8 Thousand/u L [...] Comment: FASTING:UNKNOWN FASTING: UNKNOWN Test Performed at: [facility] [address] [place] [address] Funmi Medellin MD Blood 08/08/2025 11:3 6 AM TEA PLANTATION WORKER 08/08/2025 11:37 AM TEA PLANTATION WORKER December DOSIER OPERATOR HEMATOLOGY ORDERABLES Final Resu lt [facility] [phone] [facility] [address] [facility] [place] [address] * (ABNORMAL) COMPREHENSIVE METABOLIC PANEL (08/08/2025 11:36 AM TEA PLANTATION WORKER) Only the most recent of8 resultswithin the time period is included. GLUCOSE 120(H) 65 - 99 mg/dL [facility] [...] Comment: FASTING:UNKNOWN FASTING: UNKNOWN Test Performed at: [facility] [address] [facility] [place] [address] Funmi Medellin MD Blood 08/08/2025 11:3 6 AM TEA PLANTATION WORKER 08/08/2025 11:37 AM TEA PLANTATION WORKER December Gaxiola DOSIER OPERATOR CHEMISTRY ORDERABLES Final Resul t [facility] [phone] [facility] [place] [address] [place] [address] * (ABNORMAL) URINE CULTURE (07/26/2025 4:55 PM TEA PLANTATION WORKER) Only the most recent of4 resultswithin the time period is included. URINE CULTURE SEE NOTE(A) [facility] Comment: CULTURE, URINE, ROUTINE Micro Number: [id number] Test Status: Final Specimen Source: Urine, clean [...] cefuroxime, cephalexin and loracarbef. Test Performed at: [employer] [address] [place] [address] Funmi Medellin MD Urine URINE SPECIMEN OBTAINED BY CLEAN CATCH PROCEDURE / Unknown 07/26/2025 4:55 PM TEA PLANTATION WORKER 07/27/2025 1:12 AM TEA PLANTATION WORKER us Leah Millard DO MICROBIOLOGY - GENERAL ORDE RABLES Final Result [facility] [phone] [facility] [place] [address] [place] [address] * (ABNORMAL) POC URINALYSIS DIPSTICK NON AUTOMATED (07/26/2025 4:00 PM TEA PLANTATION WORKER) COLOR UA POC Yellow Pale to Dark Yellow [facility] CLARITY UA POC Clear Clear, Other [facility] GLUCOSE UA POC Negative Negative, Normal [facility] BILIRUBIN UA POC Negative Negative [facility] KETONES UA POC Negative Negative [facility] SPECIFIC GRAVITY UA POC >=1.030 1.000 - 1.030 [facility] BLOOD UA POC 1+(A) Negative [facility] PH UA POC 6.0 5.0 - 8.0 [facility] IC [facility] PROTEIN UA POC 1+(A) Negative [facility] UROBILINOGEN UA POC 0.2 <2.0 mg/dL [facility] NITRITE UA POC Positive(A) Negative [facility] LEUKOCYTE ESTERASE UA POC 3+(A) Negative [facility] KIT LOT NUMBER POC [phone] [facility] KIT EXP DATE POC 03/13/2026 [facility] Urine 07/26/2025 4:00 PM TEA PLANTATION WORKER us Leah Millard DO POINT OF CARE TESTING Final Result Performing Organization Address City/[facility]/ZIP Co de Phone Number [facility] CLIA# [id number] [address] [place] [id number] * (ABNORMAL) POC URINALYSIS DIPSTICK AUTOMATED (06/29/2025 4:20 PM CDT) Only the most recent of3 resultswithin the time period is included. COLOR UA POC Yellow Pale to Dark Yellow [facility] CLARITY UA POC Cloudy(A) Clear, Other [facility] GLUCOSE UA POC Negative Negative, Normal [facility] BILIRUBIN UA POC Negative Negative [facility] KETONES UA POC Negative Negative [facility] SPECIFIC GRAVITY UA POC 1.020 1.000 - 1.030 [facility] BLOOD UA POC 2+(A) Negative [facility] LINIC [facility] PH UA POC 6.0 5.0 - 8.0 [facility] IC [facility] PROTEIN UA POC 3+(A) Negative [facility] UROBILINOGEN UA POC 0.2 <2.0 mg/dL [facility] NITRITE UA POC Positive(A) Negative [facility] LEUKOCYTE ESTERASE UA POC 3+(A) Negative [facility] KIT LOT NUMBER POC [phone] [facility] KIT EXP DATE POC 03/13/2026 [facility] Urine 06/29/2025 4:20 PM CDT us Leah Millard DO POINT OF CARE TESTING Final Result [facility] CLIA# [id number] [address] [place] [address] * TSH (05/31/2025 10:39 AM CDT) TSH 0.68 0.40 - 4.50 mIU/L [facility] Comment: Test Performed at: [facility] [address] [address] [place] [address] Funmi Medellin MD Blood 05/31/2025 10:3 9 AM CDT 06/01/2025 2:39 AM CDT us Leahmary ann Snellehan DO CHEMISTRY ORDERABLES Final Result Performing Organization Address City/[facility]/ZIP Co de Phone Number [facility] [phone] [facility] [address] [place] [address] * (ABNORMAL) HEMOGLOBIN A1C (05/31/2025 10:39 AM [...] [facility] Comment: Test Performed at: [facility] [address] [place] [address] Funmi Medellin MD Blood 05/31/2025 10:3 9 AM CDT 06/01/2025 2:39 AM CDT us Leah Snellehan DO CHEMISTRY ORDERABLES Final Result Performing Organization Address City/[facility]/ZIP Co de Phone Number [facility] [phone] [facility] [address] [facility] [place] [address] * (ABNORMAL) LIPID PANEL (05/31/2025 10:39 AM [...] 2015;9:129-169. LDL CALCULATED 57 mg/dL (calc) [facility] Comment: Reference range: <100 Desirable range <100 mg/dL for primary prevention; <70 mg/dL for patients with CHD or diabetic patients with > or = 2 CHD risk factors. LDL-C is now calculated using the Kandace calculation, which is a validated novel method providing better accuracy than the Friedewald equation in the estimation of LDL-C. Jeffrey DODSON et al. BRIANNA. 2013;310(19): 9210-4157 (http://education.TinyCo/faq/AYX643) CHOL/HDL RATIO 4.0 <5.0 (calc) [facility] [facility] NON-HDL CHOLESTEROL 85 <130 mg/dL (calc) [facility] Comment: For patients with diabetes plus 1 major ASCVD risk factor, treating to a non-HDL-C goal of <100 mg/dL (LDL-C of <70 mg/dL) is considered a therapeutic option. Test Performed at: [employer] [id number] [place] [address] Funmi Medellin MD Blood 05/31/2025 10:3 9 AM CDT 06/01/2025 2:39 AM CDT us Leah Millard DO CHEMISTRY ORDERABLES Final Result [facility] [phone] [place] [address] * HM DIABETES EYE EXAM (12/20/2024 10:14 AM CDT) us Abstract Provider HEALTH MAINTENANCE Edited Resu lt - Final * MICROALBUMIN/CREATININE RATIO, RANDOM UR (11/08/2024 2:52 PM TEA PLANTATION WORKER) Creatinine, Urine 135 20 - 275 mg/dL [facility] MICROALBUMIN, URINE 0.7 See Note: mg/dL [facility] Comment: Reference Range: Reference Range Not established MICROALBUMIN/CREAT RATIO, UR 5 <30 mg/g creat [facility] Comment: The ADA defines abnormalities in albumin excretion as follows: Albuminuria Category Result (mg/g creatinine) Normal to Mildly increased <30 Moderately increased 30-299 Severely increased > OR = 300 The ADA recommends that at least two of three specimens collected within a 3-6 month period be abnormal before considering a patient to be within a diagnostic category. Test Performed at: [facility] [place] [address] [place] [address] Funmi Medellin MD Urine URINE SPECIMEN OBTAINED BY CLEAN CATCH PROCEDURE / Unknown 11/08/2024 2:52 PM TEA PLANTATION WORKER 11/09/2024 5:16 AM TEA PLANTATION WORKER us Leah Millard DO URINE ORDERABLES Final Resu lt [facility] [phone] [facility] [phone] * MAMMO 3D BON SCREEN BILAT W [...] masses, calcifications, or areas of architectural distortion. Raichetan Dallas Sharpe DOSIER OPERATOR MAMMO ORDERABLES Final Res ult * ENDOSCOPY, COLON, SCREENING (04/04/2020 12:00 AM CDT) Sgf Scanning GI PROCEDURE ORDERABLES Final Re sult * HM DIABETES FOOT EXAM (12/27/2018 12:00 AM CDT) Marleni Micaela Zimmer DOSIER OPERATOR HEALTH MAINTENANCE Final Result from Last 3 Months or Most Recently Relevant to Health Maintenance Insurance MEDICAID [facility] DUAL COMPLETE O [facility] [id number] Care Teams Lock Maintenance Supervisor Relationship Specialty Start Date End Date Leah Millard DO [address] [place] [phone] PCP - General Family Practice 10/05/18
--- OUTSIDE RECORDS SUMMARY | 2025-08-09 10:57 | XMS_ITS | Encounter Summary ---
Author Organization [facility] Address [address] [place] [address] Care Team Providers Care Shopper'S Aide Name Role Phone Leah Millard DO Primary Care Provider [phone]- [phone] Reason for Visit * Reason Comments Provider Call Encounter Details Date Type Department Care Team (Late st Contact Info) Description 08/04/2025 Telephone [facility] [place] [address] [place] [address] Leah Millard DO [address] [place] [address] Provider Call Social History Tobacco Use Types Packs/Day Years [...] on file Legal Sex Female 6:02 AM PONY ROLL FINISHER Gender Identity Not on file Sexual Orientation Not on file documented as of this encounter Miscellaneous Notes * Telephone Encounter - Rosina Shea LPN - 08/04/2025 8:57 AM CST 08/04/2025 8:57 AM Returned call to Kanika with [facility]. I let her know we would follow up on HH. Caller verbalized understanding. Rosina DOYLE ROLL FINISHER * Telephone Encounter - Goldie De La Garza - 08/04/2025 8:56 AM CST Copied from [facility] #[id number]. Topic: [id number] Call >> Aug 04, 2025 8:54 AM Goldie Rodriguez wrote: Caller is requesting to speak with Clinical Care Team. Caller Name: Kanika with [facility] Callback Number: [phone] Is the caller a Physician, Nurse Practitioner or Physician Dock Associate? No Call Notes: She may be d/c from the Hospital today from [facility] in [facility] for an UTI and Encephalopathy Sepsis and they were sent the referral from the hospital and wants to know if Dr Millard will follow and sign HH orders Is this addressing an immediate patient care need? No ROLL FINISHER documented in this encounter Plan of Treatment Upcoming Encounters Date Type Department Care Team (Late st Contact Info) Description 08/30/2025 2:40 PM PONY ROLL FINISHER Office Visit [facility] [address] [place] [address] Leah Millard, DO [address] [place] [address] 09/15/2025 11:00 AM PONY ROLL FINISHER Office Visit [facility] [address] [place] [phone] Radha Navarro FNP [address] [place] [phone] 11/28/2025 10:40 AM CDT Office Visit [facility] [address] [place] [address] Leah Millard DO [address] [place] [phone] documented as of this encounter Visit Diagnoses Not on filedocumented in this encounter Additional Health Concerns Assessment Noted Time PHQ-9 Depression Total Score: 2 10/11/19 25 12:26 PM PONY ROLL FINISHER documented as of this encounter Care Teams Shopper'S Aide Relationship Specialty Start Date End Date Leah Millard DO [address] [facility] [place] [address] PCP - General Family Practice 10/05/18 documented as of this encounter
--- OUTSIDE RECORDS SUMMARY | 2025-08-09 10:57 | XMS_ITS | Encounter Summary ---
Author Organization [facility] Address [address] [place] [address] Care Team Providers Care Marine Electronics Technician Name Role Phone Leah Millard DO Primary Care Provider [phone]- [phone] Encounter Details Date Type Department Care Team (Latest Contact Info) Description 08/09/2025 Results Follow-Up [facility] [address] [place] [address] [place], [facility] [address] [place] [address] CBC WITH DIFFERENTIAL, COMPREHENSIVE METABOLIC [...] on file Legal Sex Female 6:02 AM SENIOR ACCOUNTING ANALYST Gender Identity Not on file Sexual Orientation Not on file documented as of this encounter Plan of Treatment Upcoming Encounters Date Type Department Care Team (Late st Contact Info) Description 08/30/2025 2:40 PM SENIOR ACCOUNTING ANALYST Office Visit [facility] [address] [place] [address] Leah Millard DO [address] [facility] [place] [phone] 09/15/2025 11:00 AM SENIOR ACCOUNTING ANALYST [facility] [place] [address] [place] [phone] Radha Navarro FNP [address] [place] [phone] 11/28/2025 10:40 AM CDT Office Visit [facility] [address] [place] [address] Leah Millard DO [address] [place] [address] documented as of this encounter Visit Diagnoses Not on filedocumented in this encounter Additional Health Concerns Assessment Noted Time PHQ-9 Depression Total Score: 2 10/11/19 25 12:26 PM SENIOR ACCOUNTING ANALYST documented as of this encounter Care Teams Marine Electronics Technician Relationship Specialty Start Date End Date Leah Millard DO [address] [place] [phone] PCP - General Family Practice 10/05/18 documented as of this encounter
--- OUTSIDE RECORDS SUMMARY | 2025-08-09 10:57 | XMS_ITS | Encounter Summary ---
Author Organization [employer] Address [address] [place] [address] Care Team Providers Care Trend Investigator Name Role Phone Leah Millard DO Primary Care Provider [phone]- [phone] Encounter Details Date Type Department Care Team (Latest Contact Info) Description 03/06/2003 Outpatient Historical [facility] [address] [place] [address] AMBULANCE, PRN VIEW CHEST PAIN NOS (Primary Dx) Social History Tobacco Use Types Packs/Day Years Used Date Smoking Tobacco: Never Assessed Comments Unknown Sex and Gender Information Value Date Recorded Sex Assigned at Not on file Legal Sex Female 4:46 AM ANIMATION ARTIST Gender Identity Not on file Sexual Orientation Not on file documented as of this encounter Plan of Treatment Not on file documented as of this encounter Visit Diagnoses Diagnosis Chest pain, unspecified- Primary documented in this encounter Care Teams Trend Investigator Relationship Specialty Start Date End Date Leah Millard DO [address] [place] [address] PCP - General Family Practice 10/05/18 documented as of this encounter
--- OUTSIDE RECORDS SUMMARY | 2025-08-09 10:57 | XMS_ITS | Encounter Summary ---
Author Organization [facility] Address [address] [place] [address] Care Team Providers Care Knit Goods Washer Name Role Phone Leah Millard DO Primary Care Provider Encounter Details Date Type Department Care Team (Late Contact Info) Description 07/04/2025 Results Follow-Up [facility] [address] [place] [address] Leah Millard DO [address] [place] [address] URINE CULTURE Social History Tobacco [...] on file Legal Sex Female 6:02 AM PIG IRON LOADER Gender Identity Not on file Sexual Orientation Not on file documented as of this encounter Plan of Treatment Upcoming Encounters Date Type Department Care Team (Late st Contact Info) Description 08/30/2025 2:40 PM PIG IRON LOADER Office Visit [facility] [address] [place] [address] Leah Millard DO [address] [facility] [place] [phone] 09/15/2025 11:00 AM PIG IRON LOADER [facility] [place] [address] [place] [phone] Radha Navarro FNP [address] [place] [phone] 11/28/2025 10:40 AM CDT Office Visit [facility] [address] [place] [address] Leah Millard DO [address] [place] [address] documented as of this encounter Visit Diagnoses Not on filedocumented in this encounter Additional Health Concerns Assessment Noted Time PHQ-9 Depression Total Score: 2 10/11/19 25 12:26 PM PIG IRON LOADER documented as of this encounter Care Teams Knit Goods Washer Relationship Specialty Start Date End Date Leah Millard DO [address] [place] [phone] PCP - General Family Practice 10/05/18 documented as of this encounter
== END 2025-08-04 11:50 | disposition home health service (06) ==
LOC: ER 16:48 → ER IP 19:25 → MEDSURG 08-03 07:20 → ER IP 08-09 10:55 → MEDSURG 08-09 10:55
PROVIDERS: Clinical Nurse Specialist Acute Care; Student in an Organized Health Care Education/Training Program; Admitting Provider Family Medicine; Emergency Provider Emergency Medicine; PCP Family Medicine; Visit Provider Registered Nurse
DX: N30.00 Acute cystitis without hematuria (principal); G93.40 Encephalopathy, unspecified; E11.9 Type 2 diabetes mellitus without complications; Z79.4 Long term (current) use of insulin; J44.9 Chronic obstructive pulmonary disease, unspecified; N17.9 Acute kidney failure, unspecified; G89.29 Other chronic pain; I63.9 Cerebral infarction, unspecified; E78.2 Mixed hyperlipidemia; I25.10 Atherosclerotic heart disease of native coronary artery without angina pectoris; Z99.81 Dependence on supplemental oxygen; K21.9 Gastro-esophageal reflux disease without esophagitis; Z79.82 Long term (current) use of aspirin; Z79.891 Long term (current) use of opiate analgesic; I10 Essential (primary) hypertension; I25.2 Old myocardial infarction; G47.33 Obstructive sleep apnea (adult) (pediatric); Z99.89 Dependence on other enabling machines and devices; Z85.038 Personal history of other malignant neoplasm of large intestine; Z87.891 Personal history of nicotine dependence
CPT/HCPCS: 36415; 36416; 71045; 74176; 80048; 80053; 81001; 82962; 83690; 83735; 84443; 85025; 87086; 96365; 96375; 97110; 97116; 97161; 99285; G0378; J1956; J2405; J2470; J3535; J7030; J9999